=== PATIENT | female | born 1995 | race American Indian/Alaskan Native ===

== ENCOUNTER 2020-04-21 15:37 | Outpatient (REF) | payer OTHER, MEDICAID, SELFPAY ==
[2020-04-21 17:21] LABS: MANUAL DIFF FLAG NO
[2020-04-21 17:23] LABS: Basophils Percent Auto 0.4 % (0-2); Eosinophils Absolute Auto 0.1 X10*3/uL (0.0-0.4); Hematocrit 41.5 % (37-47); Hemoglobin 14.3 g/dl (12.0-16.0); Imm Gran Abs Auto 0.01 X10*3/uL (0.00-0.03); Imm Gran Pct Auto 0.1 % (0.0-0.4); Lymphocytes Absolute Auto 3.1 X10*3/uL (1.2-4.9); Lymphocytes Percent Auto 42.9 % (20-40); Mean Corpuscular HGB Conc 34.5 g/dl (31.0-35.0); Mean Corpuscular Hemoglobin 31.1 pg (27.0-33.0); Mean Corpuscular Volume 90.2 fL (80-98); Mean Platelet Volume 11.2 fL (9.4-12.3); Monocytes Absolute Auto 0.5 X10*3/uL (0.1-1.2); Monocytes Percent Auto 6.5 % (2-11); Neutrophils Absolute Auto 3.5 X10*3/uL (2.0-8.3); Neutrophils Percent Auto 49.1 % (45-73); Platelet Count 217 X10*3/uL (160-400); Red Cell Distribution Width 11.9 % (11.0-16.0); White Blood Count 7.1 X10*3/uL (4.8-10.8)
[2020-04-21 18:09] LABS: Alanine Aminotransferase 21 U/L (0-31); Albumin Level 4.7 g/dL (3.5-5.0); Alkaline Phosphatase 78 U/L (39-117); Anion Gap 14 (12-20); Aspartate Amino Transferase 15 U/L (5-31); Bilirubin Total 1.5 mg/dL (0.0-1.0); Blood Urea Nitrogen 10 mg/dL (9-16); C Reactive Protein 0.11 mg/dL (< or = 0.50); Calcium 9.4 mg/dL (8.4-10.2); Carbon Dioxide 21 mmol/L (22-29); Chloride 109 mmol/L (96-108); Estimated Glomerular Filt Rate > 60; Glucose Random 110 mg/dL (60-115); Potassium 3.7 mmol/l (3.3-5.1); Rheumatoid Factor 22.4 IU/mL (<15.0); Sodium 140 mmol/L (135-145); Total Protein 7.3 g/dL (6.5-8.0)
[2020-04-21 18:46] LABS: Erythrocyte Sedimentation Rate 6 MM/HR (0-20)
[2020-04-23 04:57] LABS: Lyme Abs Screen <0.90 index
[2020-04-24 04:07] LABS: HBc Num1 0.21 S/CO (0.00-0.79); Hepatitis B Core Antibody Nonreactive (Nonreactive); ~HepC Num1 0.09 S/CO (0.00-0.79); ~Hepatitis B Surface Antibody NONREACTIVE (Nonreactive); ~Hepatitis C Antibody Nonreactive (Nonreactive)
[2020-04-24 04:22] LABS: Hepatitis B Surface Antigen Negative (Negative)
[2020-04-24 13:12] LABS: Antibody to SS-A Antigen <1.0 NEG AI (<1.0 NEG); Antibody to SS-B Antigen <1.0 NEG AI (<1.0 NEG); Cyclic Citrullinated Peptide >250 UNITS
[2020-04-24 13:37] LABS: PTT (LAC) Screen 31 sec (< OR = 40)
[2020-04-24 13:38] LABS: Beta-2 Microglobulin, Serum 1.54 mg/L (< OR = 2.51)
[2020-04-24 23:22] LABS: Anti Nuclear Antibody Screen NEGATIVE (NEGATIVE)
[2020-04-25 00:12] LABS: Cardiolipin IgG Ab <14 GPL; Cardiolipin IgM Ab 15 MPL
[2020-04-25 19:47] LABS: Vitamin D 25-OH, D2 <4 ng/mL; Vitamin D 25-OH, D3 23 ng/mL; Vitamin D 25-OH, Total 23 ng/mL (30-100)
[2020-04-26 07:33] LABS: HBsAGNum1 0.25 S/CO (0.00-0.99)
[2020-04-26 09:40] LABS: Hepatitis A Antibody IgM 0.79 Index (0-0.79); ~Hepatitis A Antibody IgM Nonreactive (Nonreactive)
== END 2020-04-21 15:38 | disposition home or self-care (01) ==
LOC: HO.LAB 15:37
PROVIDERS: PCP Internal Medicine; Referring Provider Internal Medicine; Visit Provider Student in an Organized Health Care Education/Training Program
DX: M25.50 Pain in unspecified joint (principal)
CPT/HCPCS: 36415; 80053; 82232; 82306; 84443; 85025; 85597; 85613; 85652; 85730; 86038; 86039; 86140; 86147; 86200; 86235; 86431; 86618; 86704; 86706; 86709; 86803; 87340

== ENCOUNTER 2020-05-04 17:24 | Emergency (ER) | payer OTHER, MEDICAID, SELFPAY ==
[2020-05-04 18:00] VITALS: BP 132/66; PULSE 64; RESP 16; TEMP 36.8; O2SAT 100
[2020-05-04 18:12] VITALS: BP 122/86; PULSE 66; RESP 26; TEMP 36.6; O2SAT 99; BMI 31.1
--- NOTE | 2020-05-04 18:43 | ED_ITS ---
HPI - Ear Problem General Chief complaint: Ear Problems <Swetha Messer NP - Last Filed: 05/04/20 19:02> Stated complaint: ear pain, sore throat <Swetha Messer NP - Last Filed: 05/04/20 19:02> Time Seen by Provider: 05/04/20 18:17 <Swetha Messer NP - Last Filed: 05/04/20 19:02> Source: patient <Swetha Messer NP - Last Filed: 05/04/20 19:02> Mode of arrival: ambulatory <Swetha Messer NP - Last Filed: 05/04/20 19:02> Limitations: no limitations <Swetha Messer NP - Last Filed: 05/04/20 19:02> History of Present Illness HPI Narrative: Bilateral ear pain x several days, ear drainage since yesterday. No fevers, chills, rhinorrhea, sore throat. +nasal congestion <Swetha Messer NP - Last Filed: 05/04/20 19:02> MD Complaint: ear pain and ear discharge <Swetha Messer NP - Last Filed: 05/04/20 19:02> Location: bilateral <Swetha Messer NP - Last Filed: 05/04/20 19:02> Duration: intermittent <Swetha Messer NP - Last Filed: 05/04/20 19:02> Severity: mild <Swetha Messer NP - Last Filed: 05/04/20 19:02> Exacerbating factors: nothing <Swetha Messer NP - Last Filed: 05/04/20 19:02> Discharge from ear: yes - purulent (right ear) <Swetha Messer NP - Last Filed: 05/04/20 19:02> Treatment prior to arrival: none <Swetha Messer NP - Last Filed: 05/04/20 19:02> Related Data Home medications: Home Medications Medication Instructions Recorded Confirmed acetaminophen 650 mg/20.3 mL oral 650 mg PO Q6H PRN 04/21/20 solution albuterol sulfate 90 mcg/actuation 2 puff INHALATION Q6H PRN 04/21/20 aerosol inhaler cyclobenzaprine 10 mg tablet 10 mg PO BEDTIME 04/21/20 diclofenac potassium 50 mg tablet 50 mg PO BID 04/21/20 Previous Rx's Medication Instructions Recorded amoxicillin 500 mg PO Q12H #21 tab 05/04/20 cetirizine 10 mg PO DAILY #30 tab 05/04/20 ciprofloxacin-dexamethasone 4 drp OTIC (EARS) BID 7 Days #7.5 05/04/20 [Ciprodex] ml <Swetha Messer NP - Last Filed: 05/04/20 19:02> Allergies/adverse reactions: Allergies Allergy/AdvReac Type Severity Reaction Status Date / Time aspirin Allergy Intermediate rash Verified 04/21/20 15:58 No Known Allergies Allergy Verified 04/21/20 15:58 [No Known Allergies*] <MARINA Richard Last Filed: 05/04/20 19:02> Review of Systems Review of Systems: Yes all other systems are reviewed and are negative <MARINA Richard Last Filed: 05/04/20 19:02> Constitutional: Constitutional: Reports no additional constitutional complaints, Denies body ache(s), Denies chills, Denies fever(s), Denies headache(s) and Denies weakness <Swetha Messer NP - Last Filed: 05/04/20 19:02> Eyes: Eyes: Reports no additional eye complaints and Denies change in vision <MARINA Richard Last Filed: 05/04/20 19:02> ENT: Reports system reviewed and no additional complaints, except as documented, Denies dizziness, Reports ear discharge, Reports otalgia, Denies headache(s), Denies nasal congestion, Denies nasal discharge and Denies neck pain <Swetha Messer NP - Last Filed: 05/04/20 19:02> Cardiovascular: Cardiovascular: Reports no additional cardiovascular complaints, Denies chest pain, Denies leg edema and Denies dyspnea <MARINA Richard Last Filed: 05/04/20 19:02> Respiratory: Respiratory: Reports no additional respiratory complaints, Denies cough and Denies dyspnea <Swetha Messer NP - Last Filed: 05/04/20 19:02> Gastrointestinal: Gastrointestinal: Reports no additional gastrointestinal complaints, Denies abdominal pain, Denies diarrhea, Denies nausea and Denies vomiting <Swetha Messer NP - Last Filed: 05/04/20 19:02> Genitourinary: Genitourinary: Reports no additional female genitourinary complaints and Denies urinary incontinence <Swetha Messer NP - Last Filed: 05/04/20 19:02> Musculoskeletal: Musculoskeletal: Reports no additional musculoskeletal complaints, Denies back pain, Denies arthralgias, Denies joint swelling, Denies neck pain, Denies numbness and Denies tingling <Swetha Messer NP - Last Filed: 05/04/20 19:02> Integumentary/Breasts: Skin/Breast: Reports system reviewed and no additional complaints, except as docu and Denies rash <Swetha Messer NP - Last Filed: 05/04/20 19:02> Neurologic: Reports system reviewed and no additional complaints, except as documented, Denies Abnormal speech present, Denies dizziness, Denies headache(s), Denies numbness, Denies tingling and Denies weakness <Swetha Messer NP - Last Filed: 05/04/20 19:02> [facility] [place] Past Medical History Attestation statement: The following information was validated with the patient. <Swetha Messer NP - Last Filed: 05/04/20 19:02> Source: old records reviewed and nursing notes reviewed <Swetha Messer NP - Last Filed: 05/04/20 19:02> Medical History: Medical History Myofascial pain syndrome Numbness in both hands Polyarthritis <Swetha Messer NP - Last Filed: 05/04/20 19:02> Surgical History: Surgical History H/O breast biopsy H/O shoulder surgery Hx of section Hx of cholecystectomy <Swetha Messer NP - Last Filed: 05/04/20 19:02> Family History Family History: Family History Maternal Grandmother Diabetes Father HTN (hypertension) Mother HTN (hypertension) <Swetha Messer NP - Last Filed: 05/04/20 19:02> Social History Social History: Social History Alcohol intake: never Smoking Status: Former smoker Smoked in Last 30 Days: No Use of substances other than those prescribed or required for medical reasons: No Any prior treatment program specific to substance use: No Advance Directives: No Advance Directives Information Provided: Yes <Swetha Messer NP - Last Filed: 05/04/20 19:02> Physical Exam Vital Signs: Vital Signs: Last Vital Signs Temp 97.8 F 05/04/20 18:12 Pulse 66 05/04/20 18:12 Resp 26 H 05/04/20 18:12 BP 122/86 05/04/20 18:12 Pulse Ox 99 05/04/20 18:12 Body Mass Index 31.1 <Swetha Messer NP - Last Filed: 05/04/20 19:02> Vital Signs: Last Vital Signs Temp 97.8 F 05/04/20 18:12 Pulse 66 05/04/20 18:12 Resp 26 H 05/04/20 18:12 BP 122/86 05/04/20 18:12 Pulse Ox 99 05/04/20 18:12 Body Mass Index 31.1 <Horacio Darling MD - Last Filed: 05/10/20 12:28> Const: General: cooperative, healthy appearing, comfortable and no acute distress <Swetha Messer NP - Last Filed: 05/04/20 19:02> Orientation/consciousness: patient oriented x3 <Swetha Messer NP - Last Filed: 05/04/20 19:02> Limitations: no limitations <Swetha Messer NP - Last Filed: 05/04/20 19:02> HENMT: Head: Yes normal to inspection <Swetha Messer NP - Last Filed: 05/04/20 19:02> Ears: hearing grossly normal bilaterally, mastoids normal, no periauricular adenopathy, Abnormal EAC present (drainage right ear canal) and TM abnormal (bilateral TM) bulging, bullous, dull, wth effusion, erythematous, with fluid behind the TM and with loss of landmarks <Swetha Messer NP - Last Filed: 05/04/20 19:02> General nose exam: Normal external nose present <Swetha Messer NP - Last Filed: 05/04/20 19:02> Face and sinus: Yes normal facial exam <Swetha Messer NP - Last Filed: 05/04/20 19:02> Mouth: Normal oral and palatal mucosa present <Swetha Messer NP - Last Filed: 05/04/20 19:02> Throat: Yes posterior oropharynx normal <Swetha Messer NP - Last Filed: 05/04/20 19:02> Eyes: General: appearance normal, both eyes and all related structures <Swetha Messer NP - Last Filed: 05/04/20 19:02> Pupils: Equal, round and reactive pupils present <Swetha Messer NP - Last Filed: 05/04/20 19:02> Neck: Neck: Yes normal visual inspection <Swetha Messer NP - Last Filed: 05/04/20 19:02> Chest: Chest palpation & inspection: normal inspection of the chest <Swetha Messer NP - Last Filed: 05/04/20 19:02> Resp: Effort & Inspection: normal respiratory effort <Swetha Messer NP - Last Filed: 05/04/20 19:02> Auscultation: clear to auscultation bilaterally <Swetha Messer NP - Last Filed: 05/04/20 19:02> Cardio: Rate: regular rate <Swetha Messer NP - Last Filed: 05/04/20 19:02> Rhythm: regular rhythm <Swetha Messer NP - Last Filed: 05/04/20 19:02> Peripheral pulses: Peripheral pulses 2+ throughout <Swetha Messer NP - Last Filed: 05/04/20 19:02> GI: Inspection: Yes normal to inspection <Swetha Messer NP - Last Filed: 05/04/20 19:02> Palpation (GI): Soft to palpation and nontender <Swetha Messer NP - Last Filed: 05/04/20 19:02> Auscultation: normal bowel sounds <Swetha Messer NP - Last Filed: 05/04/20 19:02> Back/Spine/Pelvis: Thoracic/Lumbar Spine: thoracic and lumbar spine normal to inspection <Swetha Messer NP - Last Filed: 05/04/20 19:02> Skin: General skin exam: no rashes or lesions noted <Swetha Messer NP - Last Filed: 05/04/20 19:02> Neuro: General: patient oriented x3, no focal motor deficits and normal sensation to monofilament <Swetha Messer NP - Last Filed: 05/04/20 19:02> Cranial nerves: Yes Equal, round and reactive pupils present <Swetha Messer NP - Last Filed: 05/04/20 19:02> Cognition (Neuro): normal cognition <Swetha Messer NP - Last Filed: 05/04/20 19:02> Speech: No Abnormal speech present <Swetha Messer NP - Last Filed: 05/04/20 19:02> Gait exam (Neuro): Normal gait present <Swetha Messer NP - Last Filed: 05/04/20 19:02> Motor exam (neuro): 5/5 motor strength present throughout <Swetha Messer NP - Last Filed: 05/04/20 19:02> Extrem: General: Yes normal to inspection <Swetha Messer NP - Last Filed: 05/04/20 19:02> Course Course Course Narrative: Bilateral AOM. Otitis Externa right ear. No mastoid tenderness or abno rmality. Will treat with antibiotics. Reviewed worrisome signs and symptoms and when to return to the emergency department. Comfortable discharge home. <Swetha Messer NP - Last Filed: 05/04/20 19:02> I have reviewed the chart <Horacio Darling MD - Last Filed: 05/10/20 12:28> Discharge Plan Discharge Clinical Impression: Otitis media, Otitis externa <Swetha Messer NP - Last Filed: 05/04/20 19:02> Patient Disposition: Home, Self-Care <Swetha Messer NP - Last Filed: 05/04/20 19:02> Instructions: Ear Infection (ED) <Swetha Messer NP - Last Filed: 05/04/20 19:02> Additional Instructions: Only do the drops in the right ear <Swetha Messer NP - Last Filed: 05/04/20 19:02> Prescriptions: New amoxicillin 500 mg tablet 500 mg PO Q12H Qty: 21 RF: 0 cetirizine 10 mg tablet 10 mg PO DAILY Qty: 30 RF: 0 ciprofloxacin-dexamethasone [Ciprodex] 0.3-0.1 % drops,suspension 4 drp otic (ears) BID 7 Days Qty: 7.5 RF: 0 No Action diclofenac potassium 50 mg tablet 50 mg PO BID RF: 0 acetaminophen 650 mg/20.3 mL solution 650 mg PO Q6H PRNRF: 0 cyclobenzaprine 10 mg tablet 10 mg PO BEDTIME RF: 0 albuterol sulfate 90 mcg/actuation HFA aerosol inhaler 2 puff inhalation Q6H PRNRF: 0 <Swetha Messer NP - Last Filed: 05/04/20 19:02> Referrals: Marzena Strong MD [Primary Care Provider] - 2 days <Swetha Messer NP - Last Filed: 05/04/20 19:02> Interventions: ED Discharge Assessment Last Done: 05/04/20 18:49 <Swetha Messer NP - Last Filed: 05/04/20 19:02> Discharge Date/Time: 05/04/20 18:53 <Swetha Messer NP - Last Filed: 05/04/20 19:02> Print Language: Hebrew <Swetha Messer NP - Last Filed: 05/04/20 19:02>
== END 2020-05-04 18:53 | disposition home or self-care (01) ==
PROVIDERS: Emergency Provider Emergency Medicine; PCP Internal Medicine
DX: H66.93 Otitis media, unspecified, bilateral (principal); H60.501 Unspecified acute noninfective otitis externa, right ear; H92.03 Otalgia, bilateral; Z79.899 Other long term (current) drug therapy; Z87.891 Personal history of nicotine dependence
CPT/HCPCS: 99284

== ENCOUNTER → 2020-05-16 13:34 | Outpatient (BNVA) | payer OTHER, MEDICAID, SELFPAY | PROVIDERS: PCP Internal Medicine; Visit Provider Student in an Organized Health Care Education/Training Program ==

== ENCOUNTER 2020-05-19 11:27 | Outpatient (REF) | payer OTHER, MEDICAID, SELFPAY ==
--- NOTE | ~2020-05-19 | XR_ITS ---
EXAMINATION: BILATERAL HAND AND WRIST X-RAY CLINICAL INFORMATION: Rheumatoid arthritis COMPARISON: None TECHNIQUE: 3 views of the hand and wrist FINDINGS: Right: Bone alignment is normal. No fracture or dislocation is seen. There may be be periarticular osteopenia at the MCP and IP joints. Joint spaces are otherwise normal. No erosions are seen. Soft tissues are normal. Left: Bone alignment is normal. No fracture or dislocation is seen. There may be be periarticular osteopenia at the MCP and IP joints. Joint spaces are otherwise normal. No erosions are seen. Soft tissues are normal. XR/XR hand wrist RT IMPRESSION: Question periarticular osteopenia otherwise unremarkable exam
--- NOTE | ~2020-05-19 | XR_ITS ---
EXAMINATION: BILATERAL HAND AND WRIST X-RAY CLINICAL INFORMATION: Rheumatoid arthritis COMPARISON: None TECHNIQUE: 3 views of the hand and wrist FINDINGS: Right: Bone alignment is normal. No fracture or dislocation is seen. There may be be periarticular osteopenia at the MCP and IP joints. Joint spaces are otherwise normal. No erosions are seen. Soft tissues are normal. Left: Bone alignment is normal. No fracture or dislocation is seen. There may be be periarticular osteopenia at the MCP and IP joints. Joint spaces are otherwise normal. No erosions are seen. Soft tissues are normal. XR/XR hand wrist LT IMPRESSION: Question periarticular osteopenia otherwise unremarkable exam
[2020-05-21 19:11] LABS: TS Negative Control Passed; TS Panel A 0; TS Panel B 0; TS Positive Control Passed; TSpotTB Negative (SeeBelow)
[2020-05-22 04:40] LABS: HBS Num1 1.04 mIU/mL (0-7.99); HBc Num1 0.17 S/CO (0.00-0.79); HBsAGNum1 0.14 S/CO (0.00-0.99); Hepatitis B Core Antibody Nonreactive (Nonreactive); Hepatitis B Surface Antigen Negative (Negative); ~Hepatitis B Surface Antibody NONREACTIVE (Nonreactive)
[2020-05-22 04:41] LABS: ~HepC Num1 0.08 S/CO (0.00-0.79); ~Hepatitis C Antibody Nonreactive (Nonreactive)
[2020-05-24 08:45] LABS: Hepatitis A Antibody IgM 0.84 Index (0-0.79)
[2020-05-24 08:55] LABS: ~Hepatitis A Antibody IgM GRAYZONE (Nonreactive)
== END 2020-05-19 11:28 | disposition home or self-care (01) ==
LOC: HO.LAB 11:27
PROVIDERS: PCP Internal Medicine; Visit Provider Student in an Organized Health Care Education/Training Program
DX: M05.9 Rheumatoid arthritis with rheumatoid factor, unspecified (principal)
CPT/HCPCS: 36415; 73110; 73130; 86481; 86704; 86706; 86709; 86803; 87340

== ENCOUNTER 2020-05-26 11:18 | Outpatient (REF) | payer OTHER, MEDICAID, SELFPAY ==
[2020-05-26 12:25] LABS: Hepatitis A Antibody IgM 0.92 Index (0-0.79)
[2020-05-26 13:08] LABS: ~Hepatitis A Antibody IgM GRAYZONE (Nonreactive)
== END 2020-05-26 11:19 | disposition home or self-care (01) ==
LOC: HO.LAB 11:18
PROVIDERS: Visit Provider Student in an Organized Health Care Education/Training Program
DX: M05.9 Rheumatoid arthritis with rheumatoid factor, unspecified (principal)
CPT/HCPCS: 36415; 86709

== ENCOUNTER 2020-06-02 11:35 | Outpatient (REF) | payer OTHER, MEDICAID, SELFPAY ==
[2020-06-02 13:55] LABS: Hepatitis A Antibody IgM 0.91 Index (0-0.79)
[2020-06-02 14:53] LABS: ~Hepatitis A Antibody IgM GRAYZONE (Nonreactive)
== END 2020-06-02 11:36 | disposition home or self-care (01) ==
LOC: HO.LAB 11:35
PROVIDERS: PCP Internal Medicine; Visit Provider Student in an Organized Health Care Education/Training Program
DX: R89.9 Unspecified abnormal finding in specimens from other organs, systems and tissues (principal)
CPT/HCPCS: 36415; 86709

== ENCOUNTER 2020-06-09 13:31 | Outpatient (REF) | payer OTHER, MEDICAID, SELFPAY ==
[2020-06-14 08:32] LABS: ~Hepatitis A Antibody IgM Nonreactive (Nonreactive)
== END 2020-06-09 13:32 | disposition home or self-care (01) ==
LOC: HO.LAB 13:31
PROVIDERS: Visit Provider Student in an Organized Health Care Education/Training Program
DX: R89.9 Unspecified abnormal finding in specimens from other organs, systems and tissues (principal)
CPT/HCPCS: 36415; 86709

== ENCOUNTER → 2020-06-13 10:38 | Outpatient (BNVA) | payer OTHER, MEDICAID, SELFPAY | PROVIDERS: PCP Internal Medicine; Visit Provider Student in an Organized Health Care Education/Training Program | DX: M05.9 Rheumatoid arthritis with rheumatoid factor, unspecified (principal); E55.9 Vitamin D deficiency, unspecified | CPT/HCPCS: 36415; 80053 ==

== ENCOUNTER 2020-06-15 13:54 | Emergency (ER) | payer OTHER, MEDICAID, SELFPAY ==
--- NOTE | ~2020-06-15 | CT_ITS ---
EXAMINATION: CT ABDOMEN AND PELVIS WITH CONTRAST CLINICAL INFORMATION: Right lower quadrant pain COMPARISON: None TECHNIQUE: Multidetector volumetric images were obtained from the superior aspect of the liver through the pubic symphysis following administration 85 mL of Omnipaque 350 intravenous contrast. Sagittal and coronal reformatted images were obtained on the technologist's workstation. Oral contrast: No This CT examination was performed using dose optimization techniques as appropriate, variously including the following: *Automated exposure control *Adjustment of mA and/or kV according to patient size (this includes techniques or standardized protocols for targeted exams where dose is matched to indication/reason for exam; i.e. extremities or head) *Use of iterative reconstruction technique DLP: 682 mGy-cm FINDINGS: LUNG BASES: The visualized lung bases are unremarkable. LIVER, GALLBLADDER, AND BILIARY TREE: Liver is within limits of normal size and contour and homogeneous and normal in attenuation. There is been prior cholecystectomy. No focal hepatic parenchymal lesion or intrahepatic ductal dilatation. The common duct is unremarkable. PANCREAS: Unremarkable. SPLEEN: Unremarkable. ADRENAL GLANDS: Unremarkable. KIDNEYS AND URETERS: The kidneys are normal in size and contour. There is no hydronephrosis, hydroureter, or focal urinary tract calculi, or perinephric stranding. There is bilateral hyperenhancement of the renal medulla versus medullary calcifications, suggesting medullary sponge kidney. BLADDER: Unremarkable. GASTROINTESTINAL TRACT: The appendix is normal. There is no bowel obstruction or inflammatory changes in the bowel or mesentery. There is small sliding hiatal hernia. No ascites or fluid collection. ABDOMINAL WALL: Borderline fat-containing umbilical hernia under 3 cm. LYMPH NODES: No lymphadenopathy. VASCULAR: Unremarkable. PELVIC VISCERA: Dominant follicle right ovary under 2 cm. No pelvic mass or ascites. OSSEOUS STRUCTURES: Unremarkable. CT/CT abdomen pelvis w con IMPRESSION: 1. No inflammatory changes in abdomen or pelvis. Normal appendix. 2. Prior cholecystectomy. No ductal dilatation. 3. No hydronephrosis or perinephric stranding. Probable bilateral medullary sponge kidney.
--- NOTE | ~2020-06-15 | US_ITS ---
EXAMINATION: PELVIC ULTRASOUND CLINICAL INFORMATION: Right lower quadrant pain COMPARISON: CT abdomen pelvis same day TECHNIQUE: Both transabdominal and endovaginal scanning was performed. Color-flow Doppler imaging was utilized. FINDINGS: An anteverted uterus is present measuring 6.3 x 3.2 x 3.7 cm for a volume of 39 mL. A tiny amount of fluid is present in the endometrial cavity. No uterine masses are seen. The right ovary measures 2.8 x 2.7 x 1.5 cm for a volume of 5.9 mL Left ovary measures 2.5 x 1.6 x 1.4 cm for a volume of 2.9 No free fluid is present in the cul-de-sac. Doppler imaging of both ovaries shows normal arterial and venous flow. US/US transvaginal IMPRESSION: No significant abnormality is detected.
--- NOTE | ~2020-06-15 | US_ITS ---
EXAMINATION: PELVIC ULTRASOUND CLINICAL INFORMATION: Right lower quadrant pain COMPARISON: CT abdomen pelvis same day TECHNIQUE: Both transabdominal and endovaginal scanning was performed. Color-flow Doppler imaging was utilized. FINDINGS: An anteverted uterus is present measuring 6.3 x 3.2 x 3.7 cm for a volume of 39 mL. A tiny amount of fluid is present in the endometrial cavity. No uterine masses are seen. The right ovary measures 2.8 x 2.7 x 1.5 cm for a volume of 5.9 mL Left ovary measures 2.5 x 1.6 x 1.4 cm for a volume of 2.9 No free fluid is present in the cul-de-sac. Doppler imaging of both ovaries shows normal arterial and venous flow. US/US pelvic ovarian doppler IMPRESSION: No significant abnormality is detected.
--- NOTE | ~2020-06-15 | US_ITS ---
EXAMINATION: PELVIC ULTRASOUND CLINICAL INFORMATION: Right lower quadrant pain COMPARISON: CT abdomen pelvis same day TECHNIQUE: Both transabdominal and endovaginal scanning was performed. Color-flow Doppler imaging was utilized. FINDINGS: An anteverted uterus is present measuring 6.3 x 3.2 x 3.7 cm for a volume of 39 mL. A tiny amount of fluid is present in the endometrial cavity. No uterine masses are seen. The right ovary measures 2.8 x 2.7 x 1.5 cm for a volume of 5.9 mL Left ovary measures 2.5 x 1.6 x 1.4 cm for a volume of 2.9 No free fluid is present in the cul-de-sac. Doppler imaging of both ovaries shows normal arterial and venous flow. US/US pelvic complete IMPRESSION: No significant abnormality is detected.
[2020-06-15 14:02] VITALS: BP 131/80; PULSE 102; RESP 16; TEMP 37.1; O2SAT 97; BMI 72.8
--- NOTE | 2020-06-15 14:53 | ED.ABDPAIN ---
HPI - Abdominal Pain General Chief Complaint: Abdominal Pain Stated Complaint: abd pain Time Seen by Provider: 06/15/20 14:41 Source: patient Mode of arrival: ambulatory Limitations: language barrier (refrigeration mechanic present for all interactions) History of Present Illness HPI narrative: This is a 25-year-old female with past medical history that is significant for rheumatoid arthritis, fibromyalgia who is A0 and has had 3 burst by Caesarean section last 3 years ago and cholecystectomy she presents today with complaint of 2 days of ongoing sharp and stabbing like right lower quadrant abdominal pain with associated nausea but no vomiting or diarrhea. She denies any symptoms. Specifically there is no vaginal bleeding or discharge. There is no particular exacerbating or alleviating factors. No fever. She did eat lunch 2 hours prior to arrival. MD elicited complaint: abdominal pain Onset (ago): day(s) (2) Pain Consistency: intermittent (Getting worse) Location: RLQ Severity: moderate Quality: stabbing Radiation: none Migration to: periumbilical Exacerbating factors: nothing Relieving factors: nothing Associated symptoms: nausea Related Data Hx Last Menstrual Period: Irregular she is on Depo control Patient : No Home Medications Medication Instructions Recorded Confirmed acetaminophen 650 mg/20.3 mL oral 650 mg PO Q6H PRN 04/21/20 06/13/20 solution albuterol sulfate 90 mcg/actuation 2 puff INHALATION Q6H PRN 04/21/20 06/13/20 aerosol inhaler cyclobenzaprine 10 mg tablet 10 mg PO BEDTIME 04/21/20 06/13/20 diclofenac potassium 50 mg tablet 50 mg PO BID 04/21/20 06/13/20 Previous Rx's Medication Instructions Recorded amoxicillin 500 mg PO Q12H #21 tab 05/04/20 cetirizine 10 mg PO DAILY #30 tab 05/04/20 ciprofloxacin-dexamethasone 4 drp OTIC (EARS) BID 7 Days #7.5 05/04/20 [Ciprodex] ml cholecalciferol (vitamin D3) 25 25 mcg PO DAILY #30 cap 05/16/20 mcg (1,000 unit) capsule prednisone 5 mg tablet See Rx Instructions PO DAILY #50 06/13/20 tab certolizumab pegol 200 mg SUBCUT Q2W #1 ea 06/14/20 certolizumab pegol 400 mg SUBCUT Q2W #1 ea 06/14/20 Allergies Allergy/AdvReac Type Severity Reaction Status Date / Time aspirin Allergy Intermediate rash Verified 06/13/20 10:56 Review of Systems Review of Systems Constitutional: No Weight loss, No Fever, No Chills, No Night Sweats, No Fatigue, No Malaise ENT/Mouth: No Hearing loss, No Ear Pain, No Nasal Congestion, No Sinus Pain, No Hoarseness, No sore throat, No Rhinorrhea, No Swallowing Difficulty Eyes: No Eye Pain, No Swelling, No Redness, No Foreign Body, No Discharge, No Vision Changes Cardiovascular: No Chest Pain, No SOB, No Dyspnea on Exertion, No Orthopnea, No Edema, No Palpitations Respiratory: No Cough, No Sputum, No Wheezing, No Smoke Exposure, No Dyspnea Gastrointestinal: + Nausea, No Vomiting, No Diarrhea, No Constipation, + abdominal Pain as noted per HPI, No Hematochezia, No Melena Genitourinary: No Dysuria, No Urinary Frequency, No Hematuria, No Urinary Incontinence, No Urgency, No Flank Pain, No Urinary Flow Changes, No Hesitancy Musculoskeletal: No joint pain, No Myalgias, No Joint Swelling Skin: No Skin Lesions, No rash Neuro: No Weakness, No Numbness, No Paresthesias, No Loss of Consciousness, No Dizziness, No Headache Psych: No Social Issues Heme/Lymph: No Bruising, No Bleeding,No Lymphadenopathy Endocrine: No Polyuria, No Polydipsia, No Temperature Intolerance Yes all other systems are reviewed and are negative Physical Exam Vital Signs: Vital Signs: Last Vital Signs Temp 98.0 F 06/15/20 20:00 Pulse 73 06/15/20 20:00 Resp 18 06/15/20 20:00 BP 107/72 06/15/20 20:00 Pulse Ox 98 06/15/20 16:46 Body Mass Index 72.8 Reviewed Const: Other: Sitting up erected in her bed on cell phone. General: cooperative and healthy appearing; No acute distress or intoxicated appearing Nutritional Appearance: overweight Orientation/consciousness: patient oriented x3 HENMT: Head: Yes normal to inspection Ears: hearing grossly normal bilaterally General nose exam: Normal external nose present Face and sinus: Yes normal facial exam Eyes: General: appearance normal, both eyes and all related structures Visual Morales: normal visual morales by confrontation Neck: Neck: Yes normal visual inspection, No positive Brudzinski's sign, No positive Kernig's sign and No tender Thyroid: Thyroid normal Chest: Chest palpation & inspection: normal inspection of the chest Resp: Effort & Inspection: normal respiratory effort Auscultation: clear to auscultation bilaterally Cardio: Jugular venous distension: no JVD Rhythm: regular rhythm Heart sounds: S1 normal heart sound present and S2 normal heart sound present GI: Other: Able to ambulate without pain however when she does heel drop test she will get pain in the right lower quadrant. Inspection: Yes normal to inspection Palpation (GI): Tenderness to palpation present (GI) in the RLQ and with rebound tenderness Percussion: Yes normal to percussion Auscultation: normal bowel sounds : General: Yes no CVA tenderness Back/Spine/Pelvis: Back: no CVA tenderness Skin: General skin exam: no rashes or lesions noted Neuro: General: patient oriented x3 Extrem: General: Yes normal to inspection MDM - Abdominal Pain MDM Narrative Medical decision making narrative: In review 25-year-old female with above history presenting with acute right lower quadrant pain with associated nausea with exam findings of nonspecific right lower quadrant tenderness subsequently having labs and CT of the abdomen pelvis with IV contrast rule out appendicitis this was negative for appendicitis did show question dominant follicle right ovary under 2 cm. Subsequently pelvic and ovarian ultrasound for rule out torsion that this was unremarkable. And labs were overall stable. Negative for . Patient remains comfortable. Repeat abdominal exam without evidence of peritonitis. Tolerating p.o. intake well. Will discharge home with precaution, return, follow-up instructions. Will follow up with her primary care doctor closely. She feels comfortable plan. Stable for discharge. Differential Diagnosis Differential diagnosis: Likely abdominal pain, acute appendicitis, gastroenteritis and ovarian cyst; Unlikely aortic dissection, bowel perforation, calculus of kidney, constipation, diverticulitis, endometriosis, gastritis, mesenteric ischemia, pancreatitis, peptic ulcer disease, renal colic and small bowel obstruction Medical Records Attestation: I reviewed the patient's medical records. Lab Data Attestation: I reviewed the patient's lab results. Result diagrams: 06/15/20 15:16 06/15/20 15:16 Labs: Lab Results 06/15/20 06/15/20 06/15/20 Range/Units 15:16 15:16 15:16 WBC 10.3 (4.8-10.8) X10*3/uL RBC 4.49 (4.20-5.50) X10*6/uL Hgb 13.8 (12.0-16.0) g/dl Hct 40.6 (37-47) % MCV 90.4 (80-98) fL MCH 30.7 (27.0-33.0) pg MCHC 34.0 (31.0-35.0) g/dl RDW 12.1 (11.0-16.0) % Plt Count 281 D (160-400) X10*3/uL MPV 9.9 (9.4-12.3) fL Immature Gran % (Auto) 0.6 H (0.0-0.4) % Neut % (Auto) 81.1 H (45-73) % Lymph % (Auto) 14.4 L (20-40) % [place] % (Auto) 3.5 (2-11) % Eos % (Auto) 0.1 (0-4) % Baso % (Auto) 0.3 (0-2) % Lymph # (Auto) 1.5 (1.2-4.9) X10*3/uL [place] # (Auto) 0.4 (0.1-1.2) X10*3/uL Eos # (Auto) 0.0 (0.0-0.4) X10*3/uL Baso # (Auto) 0.0 (0.0-0.2) X10*3/uL Abs Immat Gran (auto) 0.06 H (0.00-0.03) X10*3/uL Absolute Neuts (auto) 8.4 H (2.0-8.3) X10*3/uL Absolute Nucleated RBC 0.000 (0.0-0.012) X10*3/uL Nucleated RBC % (auto) 0.0 (0.0-0.2) /100WBC Sodium 140 (135-145) mmol/L Potassium 4.5 (3.3-5.1) mmol/L Chloride 106 (96-108) mmol/L Carbon Dioxide 25 (22-29) mmol/L Anion Gap 14 (12-20) BUN 17 H D (9-16) mg/dL Creatinine 0.78 (0.5-1.4) mg/dL Estim Creat Clear Calc 168.7 Estimated GFR > 60 Random Glucose 122 H D (60-115) mg/dL Calcium 9.5 (8.4-10.2) mg/dL Total Bilirubin 1.0 (0.0-1.0) mg/dL AST 20 (5-31) U/L ALT 21 (0-31) U/L Alkaline Phosphatase 92 (39-117) U/L Total Protein 7.6 (6.5-8.0) g/dL Albumin 4.5 (3.5-5.0) g/dL Urine Color YELLOW Urine Appearance CLEAR Urine pH 5.0 (5.0-8.0) Ur Specific Newman >= 1.030 H (1.005-1.025) Urine Protein NEG (NEG-TRACE) MG/DL Urine Glucose (UA) NEG (NEG) MG/DL Urine Ketones NEG (NEG) MG/DL Urine Blood NEG (NEG) Urine Nitrite NEG (NEG) Ur Leukocyte Esterase NEG (NEG) Urine RBC 0 (0) /HPF Urine WBC 0 (0-4) /HPF Ur Squamous Epith Cells 1+ /LPF Calcium Oxalate Crystal TRACE /LPF Urine Bacteria NONE /LPF Urine Test (NEGATIVE) Coronavirus (PCR) (Negative) Influenza Type A (PCR) (Negative) Influenza Type B (PCR) (Negative) RSV RNA Qual (PCR) (Negative) 06/15/20 06/15/20 Range/Units 15:16 15:41 WBC (4.8-10.8) X10*3/uL RBC (4.20-5.50) X10*6/uL Hgb (12.0-16.0) g/dl Hct (37-47) % MCV (80-98) fL MCH (27.0-33.0) pg MCHC (31.0-35.0) g/dl RDW (11.0-16.0) % Plt Count (160-400) X10*3/uL MPV (9.4-12.3) fL Immature Gran % (Auto) (0.0-0.4) % Neut % (Auto) (45-73) % Lymph % (Auto) (20-40) % [place] % (Auto) (2-11) % Eos % (Auto) (0-4) % Baso % (Auto) (0-2) % Lymph # (Auto) (1.2-4.9) X10*3/uL [place] # (Auto) (0.1-1.2) X10*3/uL Eos # (Auto) (0.0-0.4) X10*3/uL Baso # (Auto) (0.0-0.2) X10*3/uL Abs Immat Gran (auto) (0.00-0.03) X10*3/uL Absolute Neuts (auto) (2.0-8.3) X10*3/uL Absolute Nucleated RBC (0.0-0.012) X10*3/uL Nucleated RBC % (auto) (0.0-0.2) /100WBC Sodium (135-145) mmol/L Potassium (3.3-5.1) mmol/L Chloride (96-108) mmol/L Carbon Dioxide (22-29) mmol/L Anion Gap (12-20) BUN (9-16) mg/dL Creatinine (0.5-1.4) mg/dL Estim Creat Clear Calc Estimated GFR Random Glucose (60-115) mg/dL Calcium (8.4-10.2) mg/dL Total Bilirubin (0.0-1.0) mg/dL AST (5-31) U/L ALT (0-31) U/L Alkaline Phosphatase (39-117) U/L Total Protein (6.5-8.0) g/dL Albumin (3.5-5.0) g/dL Urine Color Urine Appearance Urine pH (5.0-8.0) Ur Specific Newman (1.005-1.025) Urine Protein (NEG-TRACE) MG/DL Urine Glucose (UA) (NEG) MG/DL Urine Ketones (NEG) MG/DL Urine Blood (NEG) Urine Nitrite (NEG) Ur Leukocyte Esterase (NEG) Urine RBC (0) /HPF Urine WBC (0-4) /HPF Ur Squamous Epith Cells /LPF Calcium Oxalate Crystal /LPF Urine Bacteria /LPF Urine Test NEGATIVE (NEGATIVE) Coronavirus (PCR) NEGATIVE (Negative) Influenza Type A (PCR) NEGATIVE (Negative) Influenza Type B (PCR) NEGATIVE (Negative) RSV RNA Qual (PCR) NEGATIVE (Negative) Discharge Plan Discharge Clinical Impression: Abdominal pain Qualifiers: Abdominal location: right lower quadrant Qualified Code(s): R10.31 - Right lower quadrant pain Patient Disposition: Home, Self-Care Instructions: Abdominal Pain (ED) Prescriptions: No Action Cimzia 400 mg/2 mL (200 mg/mL x 2) syringe kit 400 mg subcut Q2W Qty: 1 RF: 0 Cimzia 400 mg/2 mL (200 mg/mL x 2) syringe kit 200 mg subcut Q2W Qty: 1 RF: 3 amoxicillin 500 mg tablet 500 mg PO Q12H Qty: 21 RF: 0 cetirizine 10 mg tablet 10 mg PO DAILY Qty: 30 RF: 0 ciprofloxacin-dexamethasone [Ciprodex] 0.3-0.1 % drops,suspension 4 drp otic (ears) BID 7 Days Qty: 7.5 RF: 0 diclofenac potassium 50 mg tablet 50 mg PO BID RF: 0 acetaminophen 650 mg/20.3 mL solution 650 mg PO Q6H PRNRF: 0 cyclobenzaprine 10 mg tablet 10 mg PO BEDTIME RF: 0 albuterol sulfate 90 mcg/actuation HFA aerosol inhaler 2 puff inhalation Q6H PRNRF: 0 cholecalciferol (vitamin D3) 25 mcg (1,000 unit) capsule 25 mcg PO DAILY Qty: 30 RF: 5 prednisone 5 mg tablet See Rx Instructions PO DAILY Qty: 50 RF: 0 Referrals: Marzena Strong MD [Primary Care Provider] - 1 week PMF Past Medical History Medical History Myofascial pain syndrome Numbness in both hands Polyarthritis Surgical History H/O breast biopsy H/O shoulder surgery Hx of section Hx of cholecystectomy Hx Last Menstrual Period: Irregular she is on Depo control Family History Family History Maternal Grandmother Diabetes Father HTN (hypertension) Mother HTN (hypertension) Social History Social History Alcohol intake: never Smoking Status: Former smoker Advance Directives: No Advance Directives Information Provided: No
[2020-06-15 15:22] LABS: MANUAL DIFF FLAG NO
[2020-06-15 15:24] LABS: Basophils Percent Auto 0.3 % (0-2); Eosinophils Percent Auto 0.1 % (0-4); Hematocrit 40.6 % (37-47); Hemoglobin 13.8 g/dl (12.0-16.0); Imm Gran Abs Auto 0.06 X10*3/uL (0.00-0.03); Imm Gran Pct Auto 0.6 % (0.0-0.4); Lymphocytes Absolute Auto 1.5 X10*3/uL (1.2-4.9); Lymphocytes Percent Auto 14.4 % (20-40); Mean Corpuscular Hemoglobin 30.7 pg (27.0-33.0); Mean Corpuscular Volume 90.4 fL (80-98); Mean Platelet Volume 9.9 fL (9.4-12.3); Monocytes Absolute Auto 0.4 X10*3/uL (0.1-1.2); Monocytes Percent Auto 3.5 % (2-11); Neutrophils Absolute Auto 8.4 X10*3/uL (2.0-8.3); Neutrophils Percent Auto 81.1 % (45-73); Platelet Count 281 X10*3/uL (160-400); Red Blood Count 4.49 X10*6/uL (4.20-5.50); Red Cell Distribution Width 12.1 % (11.0-16.0); White Blood Count 10.3 X10*3/uL (4.8-10.8)
[2020-06-15 15:28] LABS: Glucose Urine UA NEG (NEG); Leukocyte Esterase Urine NEG (NEG); Nitrite Urine NEG (NEG); Specific Gravity - Urine >= 1.030 (1.005-1.025); Urine Blood NEG (NEG); Urine Ketones NEG (NEG); Urine Protein NEG (NEG-TRACE)
[2020-06-15 15:31] LABS: UPreg QC Valid YES; Urine Pregnancy NEGATIVE (NEGATIVE)
[2020-06-15 15:32] LABS: Appearance Urine CLEAR; Color Urine YELLOW
[2020-06-15 15:36] LABS: Calcium Oxalate Crystals Urine TRACE /LPF; RBC Urine 0 /HPF (0); Squamous Epithelial Cell Urine 1+ /LPF; WBC Urine 0 /HPF (0-4)
[2020-06-15 15:52] LABS: Alanine Aminotransferase 21 U/L (0-31); Albumin Level 4.5 g/dL (3.5-5.0); Alkaline Phosphatase 92 U/L (39-117); Anion Gap 14 (12-20); Aspartate Amino Transferase 20 U/L (5-31); Blood Urea Nitrogen 17 mg/dL (9-16); Calcium 9.5 mg/dL (8.4-10.2); Carbon Dioxide 25 mmol/L (22-29); Chloride 106 mmol/L (96-108); Creatinine Clr Calc Pharmacy 168.7; Estimated Glomerular Filt Rate > 60; Glucose Random 122 mg/dL (60-115); Potassium 4.5 mmol/L (3.3-5.1); Sodium 140 mmol/L (135-145); Total Protein 7.6 g/dL (6.5-8.0)
[2020-06-15 16:33] LABS: Influenza A PCR NEGATIVE (Negative); Influenza B PCR NEGATIVE (Negative); Resp Syncy Virus RNA Qual PCR NEGATIVE (Negative); SARS COV2 PCR INHOUSE NEGATIVE (Negative)
[2020-06-15 16:46] VITALS: BP 118/73; PULSE 83; RESP 18; TEMP 36.8; O2SAT 98
[2020-06-15] MEDS: iohexoL 350 MG/ML 100 ML INFUS..BTL IV (16:46)
[2020-06-15 19:17] VITALS: BP 134/79; PULSE 74; RESP 18; TEMP 36.8
[2020-06-15 20:00] VITALS: BP 107/72; PULSE 73; RESP 18; TEMP 36.7
== END 2020-06-15 20:31 | disposition home or self-care (01) ==
PROVIDERS: Nurse Practitioner Primary Care; Emergency Provider Emergency Medicine; PCP Internal Medicine
DX: R10.31 Right lower quadrant pain (principal); R11.0 Nausea; Z79.899 Other long term (current) drug therapy; Z87.891 Personal history of nicotine dependence; Z20.822 Contact with and (suspected) exposure to COVID-19
CPT/HCPCS: 0241U; 36415; 74177; 76830; 76856; 80053; 81001; 81025; 85025; 93975; 96360; 99283; 99284; Q9967

== ENCOUNTER 2020-06-20 15:01 | Outpatient (REF) | payer OTHER, SELFPAY | END 2020-06-20 15:02 | disposition home or self-care (01) | LOC: HO.LAB 15:01 | PROVIDERS: Visit Provider Internal Medicine | DX: Z20.822 Contact with and (suspected) exposure to COVID-19 (principal) | CPT/HCPCS: 36415; C9803; U0003; U0005 ==

== ENCOUNTER → 2020-07-07 12:53 | Outpatient (BNVA) | payer OTHER, SELFPAY | PROVIDERS: PCP Internal Medicine; Visit Provider Student in an Organized Health Care Education/Training Program ==

== ENCOUNTER 2020-07-09 18:41 | Emergency (ER) | payer OTHER, MEDICAID, SELFPAY ==
[2020-07-09 18:54] VITALS: BP 136/62; PULSE 83; RESP 18; TEMP 37; O2SAT 99; BMI 62.4
--- NOTE | 2020-07-09 21:36 | ED_ITS ---
HPI - Skin/Abscess/Foreign Bdy General Chief complaint: Skin/Abscess/Foreign Body Stated complaint: Red inflamed skin on injection site Time Seen by Provider: 07/09/20 21:36 Source: patient and aerial photograph interpreter Mode of arrival: ambulatory History of Present Illness HPI narrative: This is a 25-year-old female with history of rheumatoid arthritis and recently started injections for this condition. First injections were administered on Friday and involved placing an injection in each of her bilateral thighs and she states that since that time she has had continued redness with some mild erythema and swelling at the site. She denies any fac ial/lip/tongue swelling as well as denying any wheezing or difficulty breathing. In addition, she denies any fevers, chills. Related Data Home Medications Medication Instructions Recorded Confirmed acetaminophen 650 mg/20.3 mL oral 650 mg PO Q6H PRN 04/21/20 06/13/20 solution albuterol sulfate 90 mcg/actuation 2 puff INHALATION Q6H PRN 04/21/20 06/13/20 aerosol inhaler cyclobenzaprine 10 mg tablet 10 mg PO BEDTIME 04/21/20 06/13/20 diclofenac potassium 50 mg tablet 50 mg PO BID 04/21/20 06/13/20 Previous Rx's Medication Instructions Recorded amoxicillin 500 mg PO Q12H #21 tab 05/04/20 cetirizine 10 mg PO DAILY #30 tab 05/04/20 ciprofloxacin-dexamethasone 4 drp OTIC (EARS) BID 7 Days #7.5 05/04/20 [Ciprodex] ml cholecalciferol (vitamin D3) 25 25 mcg PO DAILY #30 cap 05/16/20 mcg (1,000 unit) capsule prednisone 5 mg tablet See Rx Instructions PO DAILY #50 06/13/20 tab certolizumab pegol 200 mg SUBCUT Q2W #1 ea 06/14/20 certolizumab pegol 400 mg SUBCUT Q2W #1 ea 06/14/20 Allergies Allergy/AdvReac Type Severity Reaction Status Date / Time aspirin Allergy Intermediate rash Verified 06/13/20 10:56 Review of Systems Review of Systems: Pertinent positives and negatives as stated in HPI 10 point review of systems is otherwise negative. PMFSH Past Medical History Source: nursing notes reviewed Medical History Myofascial pain syndrome Numbness in both hands Polyarthritis Surgical History H/O breast biopsy H/O shoulder surgery Hx of section Hx of cholecystectomy Family History Family History Maternal Grandmother Diabetes Father HTN (hypertension) Mother HTN (hypertension) Social History Social History Alcohol intake: never Smoking Status: Current some day smoker Use of substances other than those prescribed or required for medical reasons: No Advance Directives: No Advance Directives Information Provided: Yes Physical Exam Vital Signs: Vital Signs: Last Vital Signs Temp 98.6 F 07/09/20 18:54 Pulse 83 07/09/20 18:54 Resp 18 07/09/20 18:54 BP 136/62 07/09/20 18:54 Pulse Ox 99 07/09/20 18:54 Body Mass Index 62.4 VITAL SIGNS: Reviewed. GENERAL: Well developed, well nourished, in no acute distress. HEAD: Normocephalic/atraumatic NOSE: Nares patent bilateral OROPHARYNX: no oral lesions noted, posterior pharynx clear, no evidence of facial/tongue/lip swelling NECK: Supple, no adenopathy LUNGS: Normal breath sounds. CARDIOVASCULAR: Regular rate and rhythm without noted murmurs ABDOMEN: Soft, non-tender, non-distended with bowel sounds. EXTREMITIES: Bilateral midthigh erythema approximately 4.5 cm in diameter at each injection site without fluctuance or evidence of purulence or induration SKIN: Inspection of the skin reveals no rashes NEUROLOGIC: Alert and oriented x 4. Course Course Course Narrative: This is a 25-year-old female who presents with localized reaction after starting injections for rheumatoid arthritis. There is no evidence of hives, anaphylaxis, angioedema and patient instructed to treat this with [id number] analgesics and follow-up with the electronic pagination system operator 1st thing in the morning. She was given strict return precautions for any breathing problems or facial swelling. Discharge Plan Discharge Clinical Impression: Localized adverse drug reaction Patient Disposition: Home, Self-Care Instructions: Adverse Drug Reaction (ED) Additional Instructions: 1. Resuma todos los medicamentos caseros recetados. 2. Recomiende rosa Tylenol / ibuprofeno de venta fercho seg?n sea necesario para aliviar las molestias. 3. Sadie un seguimiento con russo reumat?logo por la ma?hoa para jeanette reevaluaci?n. 4. No dude en volver a leon servicio de urgencias si presenta alguna dificultad para respirar, hinchaz?n de la greg / lengua / labios. Prescriptions: No Action Cimzia 400 mg/2 mL (200 mg/mL x 2) syringe kit 400 mg subcut Q2W Qty: 1 RF: 0 Cimzia 400 mg/2 mL (200 mg/mL x 2) syringe kit 200 mg subcut Q2W Qty: 1 RF: 3 amoxicillin 500 mg tablet 500 mg PO Q12H Qty: 21 RF: 0 cetirizine 10 mg tablet 10 mg PO DAILY Qty: 30 RF: 0 ciprofloxacin-dexamethasone [Ciprodex] 0.3-0.1 % drops,suspension 4 drp otic (ears) BID 7 Days Qty: 7.5 RF: 0 diclofenac potassium 50 mg tablet 50 mg PO BID RF: 0 acetaminophen 650 mg/20.3 mL solution 650 mg PO Q6H PRNRF: 0 cyclobenzaprine 10 mg tablet 10 mg PO BEDTIME RF: 0 albuterol sulfate 90 mcg/actuation HFA aerosol inhaler 2 puff inhalation Q6H PRNRF: 0 cholecalciferol (vitamin D3) 25 mcg (1,000 unit) capsule 25 mcg PO DAILY Qty: 30 RF: 5 prednisone 5 mg tablet See Rx Instructions PO DAILY Qty: 50 RF: 0 Referrals: Marzena Strong MD [Primary Care Provider] - 2 days (Re-evaluation for localized reaction at site of injections that were started on Friday. No evidence of anaphylaxis, hives, or angioedema.) Print Language: Estonian
== END 2020-07-09 21:56 | disposition home or self-care (01) ==
PROVIDERS: Emergency Provider Student in an Organized Health Care Education/Training Program; PCP Internal Medicine
DX: R22.43 Localized swelling, mass and lump, lower limb, bilateral (principal); T50.995A Adverse effect of other drugs, medicaments and biological substances, initial encounter; Y92.9 Unspecified place or not applicable; M06.9 Rheumatoid arthritis, unspecified; F17.200 Nicotine dependence, unspecified, uncomplicated
CPT/HCPCS: 99282; 99284

== ENCOUNTER 2020-07-26 10:51 | Emergency (ER) | payer OTHER, MEDICAID, SELFPAY ==
--- NOTE | ~2020-07-26 | XR_ITS ---
EXAMINATION: XR CHEST CLINICAL INFORMATION: Chest pain COMPARISON: None TECHNIQUE: 2 views of the chest were obtained. FINDINGS: No significant abnormality is noted involving the heart, lungs, mediastinum, bony thorax or soft tissues. XR/XR chest 2V IMPRESSION: Unremarkable examination.
[2020-07-26 12:17] VITALS: BP 119/79; PULSE 86; RESP 16; TEMP 36.6; O2SAT 98; BMI 32.1
--- NOTE | 2020-07-26 12:22 | ED.CHESTPAIN ---
HPI - Chest Pain General Chief Complaint: Chest Pain Stated Complaint: CHEST PAIN Time Seen by Provider: 07/26/20 11:25 Source: patient Mode of arrival: ambulatory Limitations: no limitations History of Present Illness HPI narrative: Patient evaluated upon arrival in triage Patient triaged to main emergency room Patient has history of arthritis, vitamin-D deficiency and surgical history of 3 sections and cholecystectomy presenting today ambulatory via triage with complaint of reproducible right-sided chest pain ongoing for past ?couple days?. No upper respiratory symptoms, shortness of breath, lower extremity swelling, control, recent vaccination, travel or sick contacts. MD complaint: chest pain Timing of current episode: episodic Prior episodes: No Onset: other Pain location: right chest Pain radiation: none Severity: mild Quality: aching Relieving factors: movement Exacerbating factors: palpation and movement Context: other (No recent surgeries, travel, injury, medication, no history of TTP) Treatment prior to arrival: none Risk Factors Coronary artery disease risk factors: none Thoracic aortic dissection risk factors: none Related Data Home Medications Medication Instructions Recorded Confirmed acetaminophen 650 mg/20.3 mL oral 650 mg PO Q6H PRN 04/21/20 06/13/20 solution albuterol sulfate 90 mcg/actuation 2 puff INHALATION Q6H PRN 04/21/20 06/13/20 aerosol inhaler cyclobenzaprine 10 mg tablet 10 mg PO BEDTIME 04/21/20 06/13/20 diclofenac potassium 50 mg tablet 50 mg PO BID 04/21/20 06/13/20 Previous Rx's Medication Instructions Recorded amoxicillin 500 mg PO Q12H #21 tab 05/04/20 cetirizine 10 mg PO DAILY #30 tab 05/04/20 ciprofloxacin-dexamethasone 4 drp OTIC (EARS) BID 7 Days #7.5 05/04/20 [Ciprodex] ml cholecalciferol (vitamin D3) 25 25 mcg PO DAILY #30 cap 05/16/20 mcg (1,000 unit) capsule prednisone 5 mg tablet See Rx Instructions PO DAILY #50 06/13/20 tab certolizumab pegol 200 mg SUBCUT Q2W #1 ea 06/14/20 certolizumab pegol 400 mg SUBCUT Q2W #1 ea 06/14/20 Allergies Allergy/AdvReac Type Severity Reaction Status Date / Time aspirin Allergy Intermediate rash Verified 06/13/20 10:56 Review of Systems Review of Systems: Constitutional: No Weight loss, No Fever, No Chills, No Night Sweats, No Fatigue, No Malaise ENT/Mouth: No Hearing loss, No Ear Pain, No Nasal Congestion, No Sinus Pain, No Hoarseness, No sore throat, No Rhinorrhea, No Swallowing Difficulty Eyes: No Eye Pain, No Swelling, No Redness, No Foreign Body, No Discharge, No Vision Changes Cardiovascular: + Chest Pain, No SOB, No Dyspnea on Exertion, No Orthopnea, No Edema, No Palpitations Respiratory: No Cough, No Sputum, No Wheezing, No Dyspnea Gastrointestinal: No Nausea, No Vomiting, No Diarrhea, No Constipation, No abdominal Pain, No Hematochezia, No Melena Genitourinary: no irregular bleeding, No Dysuria, No Urinary Frequency, No Hematuria, No Urinary Incontinence, No Urgency, No Flank Pain, No Urinary Flow Changes, No Hesitancy Musculoskeletal: No joint pain, No Myalgias, No Joint Swelling Skin: No Skin Lesions, No rash Neuro: No Weakness, No Numbness, No Paresthesias, No Loss of Consciousness, No Dizziness, No Headache Psych: No Social Issues Heme/Lymph: No Bruising, No Bleeding,No Lymphadenopathy Endocrine: No Polyuria, No Polydipsia, No Temperature Intolerance PMFSH Past Medical History Medical History Myofascial pain syndrome Numbness in both hands Polyarthritis Surgical History H/O breast biopsy H/O shoulder surgery Hx of section Hx of cholecystectomy Family History Family History Maternal Grandmother Diabetes Father HTN (hypertension) Mother HTN (hypertension) Social History Social History Alcohol intake: never Smoking Status: Current some day smoker Advance Directives: No Advance Directives Information Provided: No Physical Exam Vital Signs: Vital Signs: Last Vital Signs Temp 98 F 07/26/20 12:17 Pulse 86 07/26/20 12:17 Resp 16 07/26/20 12:17 BP 119/79 07/26/20 12:17 Pulse Ox 98 07/26/20 12:17 Body Mass Index 32.1 Reviewed Const: Other: Walked in drinking soda General: cooperative, healthy appearing and comfortable Nutritional Appearance: average body habitus Orientation/consciousness: patient oriented x3 HENMT: Head: Yes normal to inspection Ears: hearing grossly normal bilaterally Eyes: General: appearance normal, both eyes and all related structures Visual Morales: normal visual morales by confrontation Neck: Neck: Yes normal visual inspection, No positive Brudzinski's sign, No positive Kernig's sign and No tender Thyroid: Thyroid normal Chest: Chest palpation & inspection: normal inspection of the chest and tenderness pectoral muscle on the left Resp: Effort & Inspection: normal respiratory effort Auscultation: clear to auscultation bilaterally Cardio: Jugular venous distension: no JVD Rhythm: regular rhythm Heart sounds: S1 normal heart sound present and S2 normal heart sound present GI: Inspection: Yes normal to inspection Palpation (GI): Soft to palpation, not firm, nontender and no guarding Percussion: Yes normal to percussion Auscultation: normal bowel sounds : General: Yes no CVA tenderness Back/Spine/Pelvis: Back: no CVA tenderness Skin: General skin exam: no rashes or lesions noted Neuro: General: patient oriented x3 Extrem: General: Yes normal to inspection Course Reevaluation(s) Reevaluation #1: 1225 Patient seen and evaluated in the triage area and triaged to the main emergency room She is well nontoxic appearing Perc negative VSS, not tachycardic, calm cooperative and smiling drinking soda AP an exam consistent with musculoskeletal in etiology lab work, chest x-ray UA including ordered and patient triaged to main emergency room. Reevaluation #2: Labs with very minimally elevated LFT no alcohol/abdominal pain, nausea, vomiting. Exam otherwise benign. It is or weight BMI of 32. She will follow-up with her primary care regarding this for monitoring Otherwise exam and findings reassuring chest x-ray, EKG nondiagnostic, troponin negative. Will discharge home with supportive for return, follow-up instructions. Stable for discharge. MDM - Chest Pain Lab Data Result diagrams: 07/26/20 13:00 07/26/20 13:00 Labs: Lab Results 07/26/20 07/26/20 07/26/20 Range/Units 12:56 12:56 13:00 WBC 7.6 (4.8-10.8) X10*3/uL RBC 4.36 (4.20-5.50) X10*6/uL Hgb 13.4 (12.0-16.0) g/dl Hct 40.8 (37-47) % MCV 93.6 (80-98) fL MCH 30.7 (27.0-33.0) pg MCHC 32.8 (31.0-35.0) g/dl RDW 12.6 (11.0-16.0) % Plt Count 290 (160-400) X10*3/uL MPV 10.0 (9.4-12.3) fL Immature Gran % (Auto) 0.3 (0.0-0.4) % Neut % (Auto) 44.4 L (45-73) % Lymph % (Auto) 43.0 H (20-40) % [place] % (Auto) 8.6 (2-11) % Eos % (Auto) 3.0 (0-4) % Baso % (Auto) 0.7 (0-2) % Lymph # (Auto) 3.3 (1.2-4.9) X10*3/uL [place] # (Auto) 0.7 (0.1-1.2) X10*3/uL Eos # (Auto) 0.2 (0.0-0.4) X10*3/uL Baso # (Auto) 0.1 (0.0-0.2) X10*3/uL Abs Immat Gran (auto) 0.02 (0.00-0.03) X10*3/uL Absolute Neuts (auto) 3.4 (2.0-8.3) X10*3/uL Absolute Nucleated RBC 0.000 (0.0-0.012) X10*3/uL Nucleated RBC % (auto) 0.0 (0.0-0.2) /100WBC PT (10.8-13.0) SEC INR (0.9-1.1) APTT (24.1-38.0) SEC Sodium (135-145) mmol/L Potassium (3.3-5.1) mmol/L Chloride (96-108) mmol/L Carbon Dioxide (22-29) mmol/L Anion Gap (12-20) BUN (9-16) mg/dL Creatinine (0.5-1.4) mg/dL Estim Creat Clear Calc Estimated GFR Random Glucose (60-115) mg/dL Calcium (8.4-10.2) mg/dL Total Bilirubin (0.0-1.0) mg/dL AST (5-31) U/L ALT (0-31) U/L Alkaline Phosphatase (39-117) U/L Troponin I High Sens (<3.5-17.0) ng/L Total Protein (6.5-8.0) g/dL Albumin (3.5-5.0) g/dL Urine Color YELLOW Urine Appearance CLEAR Urine pH 7.0 (5.0-8.0) Ur Specific [place] 1.020 (1.005-1.025) Urine Protein NEG (NEG-TRACE) MG/DL Urine Glucose (UA) NEG (NEG) MG/DL Urine Ketones NEG (NEG) MG/DL Urine Blood NEG (NEG) Urine Nitrite NEG (NEG) Ur Leukocyte Esterase NEG (NEG) Urine RBC 0 (0) /HPF Urine WBC 0 (0-4) /HPF Ur Squamous Epith Cells 1+ /LPF Urine Bacteria NONE /LPF Urine Test NEGATIVE (NEGATIVE) 07/26/20 07/26/20 07/26/20 Range/Units 13:00 13:00 13:00 WBC (4.8-10.8) X10*3/uL RBC (4.20-5.50) X10*6/uL Hgb (12.0-16.0) g/dl Hct (37-47) % MCV (80-98) fL MCH (27.0-33.0) pg MCHC (31.0-35.0) g/dl RDW (11.0-16.0) % Plt Count (160-400) X10*3/uL MPV (9.4-12.3) fL Immature Gran % (Auto) (0.0-0.4) % Neut % (Auto) (45-73) % Lymph % (Auto) (20-40) % [place] % (Auto) (2-11) % Eos % (Auto) (0-4) % Baso % (Auto) (0-2) % Lymph # (Auto) (1.2-4.9) X10*3/uL [place] # (Auto) (0.1-1.2) X10*3/uL Eos # (Auto) (0.0-0.4) X10*3/uL Baso # (Auto) (0.0-0.2) X10*3/uL Abs Immat Gran (auto) (0.00-0.03) X10*3/uL Absolute Neuts (auto) (2.0-8.3) X10*3/uL Absolute Nucleated RBC (0.0-0.012) X10*3/uL Nucleated RBC % (auto) (0.0-0.2) /100WBC PT 10.6 L (10.8-13.0) SEC INR 0.9 (0.9-1.1) APTT 35.9 (24.1-38.0) SEC Sodium 138 (135-145) mmol/L Potassium 4.4 (3.3-5.1) mmol/L Chloride 107 (96-108) mmol/L Carbon Dioxide 25 (22-29) mmol/L Anion Gap 10 L (12-20) BUN 15 (9-16) mg/dL Creatinine 0.86 (0.5-1.4) mg/dL Estim Creat Clear Calc 92.3 Estimated GFR > 60 Random Glucose 88 (60-115) mg/dL Calcium 9.4 (8.4-10.2) mg/dL Total Bilirubin 1.3 H (0.0-1.0) mg/dL AST 48 H D (5-31) U/L ALT 70 H (0-31) U/L Alkaline Phosphatase 80 (39-117) U/L Troponin I High Sens 4.9 (<3.5-17.0) ng/L Total Protein 7.0 (6.5-8.0) g/dL Albumin 4.3 (3.5-5.0) g/dL Urine Color Urine Appearance Urine pH (5.0-8.0) Ur Specific [place] (1.005-1.025) Urine Protein (NEG-TRACE) MG/DL Urine Glucose (UA) (NEG) MG/DL Urine Ketones (NEG) MG/DL Urine Blood (NEG) Urine Nitrite (NEG) Ur Leukocyte Esterase (NEG) Urine RBC (0) /HPF Urine WBC (0-4) /HPF Ur Squamous Epith Cells /LPF Urine Bacteria /LPF Urine Test (NEGATIVE) Imaging Data Chest x-ray: Radiologist's impression: [address] [id number] ReportSigned Patient: Leah BernalMR#: [id number]: 1995Acct:[id number]/Sex: 25 / FADM Date: 07/26/20Loc: EDAttending Dr: Ordering Physician: Abhi Hatfield NP Date of Service: 07/26/20 Procedure(s): XR chest 2V Accession Number(s): [id number] cc: Abhi Hatfield [employer] EXAMINATION: XR CHEST CLINICAL INFORMATION: Chest pain COMPARISON: None TECHNIQUE: 2 views of the chest were obtained. FINDINGS: No significant abnormality is noted involving the heart, lungs, mediastinum, bony thorax or soft tissues. XR/XR chest 2V IMPRESSION: Unremarkable examination. Dictated By:CARSON MCHUGH MDSigned By:<Electronically signed by CARSON MCHUGH MD in OV>07/26/20 1303 DD/ 1222TD/TT: Sliver Handler: [facility] ECG Data ECG #1: Interpretation: Vent. Rate : 087 BPM Atrial Rate : 087 BPM P-R Int : 128 ms QRS Dur : 080 ms QT Int : 350 ms P-R-T Axes : 053 059 018 degrees QTc Int : 421 ms Normal sinus rhythm with sinus arrhythmia Normal ECG No previous ECGs available Discharge Plan Discharge Clinical Impression: Costalchondritis, Abnormal liver function test Patient Disposition: Home, Self-Care Instructions: Costochondritis (ED) Additional Instructions: Gentle stretching, warm compresses Return if any concerns or worsening symptoms otherwise follow-up with her primary care doctor and discuss for further evaluation monitoring of your minimally elevated liver function tests Thank you Prescriptions: No Action Cimzia 400 mg/2 mL (200 mg/mL x 2) syringe kit 400 mg subcut Q2W Qty: 1 RF: 0 Cimzia 400 mg/2 mL (200 mg/mL x 2) syringe kit 200 mg subcut Q2W Qty: 1 RF: 3 amoxicillin 500 mg tablet 500 mg PO Q12H Qty: 21 RF: 0 cetirizine 10 mg tablet 10 mg PO DAILY Qty: 30 RF: 0 ciprofloxacin-dexamethasone [Ciprodex] 0.3-0.1 % drops,suspension 4 drp otic (ears) BID 7 Days Qty: 7.5 RF: 0 diclofenac potassium 50 mg tablet 50 mg PO BID RF: 0 acetaminophen 650 mg/20.3 mL solution 650 mg PO Q6H PRNRF: 0 cyclobenzaprine 10 mg tablet 10 mg PO BEDTIME RF: 0 albuterol sulfate 90 mcg/actuation HFA aerosol inhaler 2 puff inhalation Q6H PRNRF: 0 cholecalciferol (vitamin D3) 25 mcg (1,000 unit) capsule 25 mcg PO DAILY Qty: 30 RF: 5 prednisone 5 mg tablet See Rx Instructions PO DAILY Qty: 50 RF: 0 Referrals: Marzena Strong MD [Primary Care Provider] - 2 weeks
[2020-07-26 13:10] LABS: MANUAL DIFF FLAG NO
[2020-07-26 13:12] LABS: Basophils Absolute Auto 0.1 X10*3/uL (0.0-0.2); Basophils Percent Auto 0.7 % (0-2); Eosinophils Absolute Auto 0.2 X10*3/uL (0.0-0.4); Hematocrit 40.8 % (37-47); Hemoglobin 13.4 g/dl (12.0-16.0); Imm Gran Abs Auto 0.02 X10*3/uL (0.00-0.03); Imm Gran Pct Auto 0.3 % (0.0-0.4); Lymphocytes Absolute Auto 3.3 X10*3/uL (1.2-4.9); Mean Corpuscular HGB Conc 32.8 g/dl (31.0-35.0); Mean Corpuscular Hemoglobin 30.7 pg (27.0-33.0); Mean Corpuscular Volume 93.6 fL (80-98); Monocytes Absolute Auto 0.7 X10*3/uL (0.1-1.2); Monocytes Percent Auto 8.6 % (2-11); Neutrophils Absolute Auto 3.4 X10*3/uL (2.0-8.3); Neutrophils Percent Auto 44.4 % (45-73); Platelet Count 290 X10*3/uL (160-400); Red Blood Count 4.36 X10*6/uL (4.20-5.50); Red Cell Distribution Width 12.6 % (11.0-16.0); White Blood Count 7.6 X10*3/uL (4.8-10.8)
[2020-07-26 13:20] LABS: INTERNATIONAL NORM RATIO 0.9 (0.9-1.1); Prothrombin Time 10.6 SEC (10.8-13.0)
[2020-07-26 13:23] LABS: Partial Thromboplastin Time 35.9 SEC (24.1-38.0)
[2020-07-26 13:29] LABS: Glucose Urine UA NEG (NEG); Leukocyte Esterase Urine NEG (NEG); Nitrite Urine NEG (NEG); Urine Blood NEG (NEG); Urine Ketones NEG (NEG); Urine Protein NEG (NEG-TRACE)
[2020-07-26 13:31] LABS: UPreg QC Valid A; Urine Pregnancy NEGATIVE (NEGATIVE)
[2020-07-26 13:32] LABS: Appearance Urine CLEAR; Color Urine YELLOW
[2020-07-26 13:43] LABS: RBC Urine 0 /HPF (0); Squamous Epithelial Cell Urine 1+ /LPF; WBC Urine 0 /HPF (0-4)
[2020-07-26 13:44] LABS: Alanine Aminotransferase 70 U/L (0-31); Albumin Level 4.3 g/dL (3.5-5.0); Alkaline Phosphatase 80 U/L (39-117); Anion Gap 10 (12-20); Aspartate Amino Transferase 48 U/L (5-31); Bilirubin Total 1.3 mg/dL (0.0-1.0); Blood Urea Nitrogen 15 mg/dL (9-16); Calcium 9.4 mg/dL (8.4-10.2); Carbon Dioxide 25 mmol/L (22-29); Chloride 107 mmol/L (96-108); Creatinine Clr Calc Pharmacy 92.3; Estimated Glomerular Filt Rate > 60; Glucose Random 88 mg/dL (60-115); Potassium 4.4 mmol/L (3.3-5.1); Sodium 138 mmol/L (135-145)
[2020-07-26 13:48] LABS: Troponin-I High Sensitivity 4.9 ng/L (<3.5-17.0)
[2020-07-26 18:22] VITALS: BP 126/82; PULSE 94; RESP 18; O2SAT 99
== END 2020-07-26 19:15 | disposition home or self-care (01) ==
PROVIDERS: Nurse Practitioner Primary Care; Physician Assistant Medical; Emergency Provider Emergency Medicine; PCP Internal Medicine
DX: M94.0 Chondrocostal junction syndrome [Tietze] (principal); R79.89 Other specified abnormal findings of blood chemistry; F17.200 Nicotine dependence, unspecified, uncomplicated
CPT/HCPCS: 36415; 71046; 80053; 81001; 81025; 84484; 85025; 85610; 85730; 93005; 99283; 99284

== ENCOUNTER 2020-08-08 17:09 | Emergency (ER) | payer MEDICAID, SELFPAY ==
[2020-08-08 17:44] VITALS: BP 128/74; PULSE 91; RESP 16; TEMP 37.1; O2SAT 99; BMI 32.1
[2020-08-08 19:04] LABS: MANUAL DIFF FLAG NO
[2020-08-08 19:05] LABS: Basophils Absolute Auto 0.1 X10*3/uL (0.0-0.2); Basophils Percent Auto 0.6 % (0-2); Eosinophils Absolute Auto 0.3 X10*3/uL (0.0-0.4); Eosinophils Percent Auto 3.3 % (0-4); Hematocrit 40.5 % (37-47); Hemoglobin 13.6 g/dl (12.0-16.0); Imm Gran Abs Auto 0.02 X10*3/uL (0.00-0.03); Imm Gran Pct Auto 0.2 % (0.0-0.4); Lymphocytes Absolute Auto 3.4 X10*3/uL (1.2-4.9); Lymphocytes Percent Auto 41.8 % (20-40); Mean Corpuscular HGB Conc 33.6 g/dl (31.0-35.0); Mean Corpuscular Hemoglobin 30.8 pg (27.0-33.0); Mean Corpuscular Volume 91.8 fL (80-98); Monocytes Absolute Auto 0.7 X10*3/uL (0.1-1.2); Neutrophils Absolute Auto 3.7 X10*3/uL (2.0-8.3); Neutrophils Percent Auto 45.1 % (45-73); Platelet Count 243 X10*3/uL (160-400); Red Blood Count 4.41 X10*6/uL (4.20-5.50); Red Cell Distribution Width 12.1 % (11.0-16.0); White Blood Count 8.1 X10*3/uL (4.8-10.8)
[2020-08-08 19:09] LABS: Appearance Urine CLEAR; Color Urine YELLOW; Glucose Urine UA NEG (NEG); Leukocyte Esterase Urine NEG (NEG); Nitrite Urine NEG (NEG); PH 5.5 (5.0-8.0); Specific Gravity - Urine >= 1.030 (1.005-1.025); Urine Blood NEG (NEG); Urine Ketones 5 MG/DL (NEG); Urine Protein NEG (NEG-TRACE)
[2020-08-08 19:10] LABS: UPreg QC Valid YES; Urine Pregnancy NEGATIVE (NEGATIVE)
[2020-08-08 19:36] LABS: Alanine Aminotransferase 31 U/L (0-31); Albumin Level 4.3 g/dL (3.5-5.0); Alkaline Phosphatase 84 U/L (39-117); Anion Gap 13 (12-20); Aspartate Amino Transferase 25 U/L (5-31); Bilirubin Total 0.8 mg/dL (0.0-1.0); Blood Urea Nitrogen 15 mg/dL (9-16); Calcium 9.2 mg/dL (8.4-10.2); Carbon Dioxide 26 mmol/L (22-29); Chloride 104 mmol/L (96-108); Creatinine Clr Calc Pharmacy 101.7; Estimated Glomerular Filt Rate > 60; Glucose Random 116 mg/dL (60-115); Sodium 139 mmol/L (135-145); Total Protein 7.1 g/dL (6.5-8.0)
--- NOTE | 2020-08-08 23:45 | ED_ITS ---
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 She otherwise has negative surgical history, and denies any associated fevers, chills, shortness of breath, urinary pain/burning/frequency. Related Data Home Medications Medication Instructions Recorded Confirmed acetaminophen 650 mg/20.3 mL oral 650 mg PO Q6H PRN 04/21/20 06/13/20 solution albuterol sulfate 90 mcg/actuation 2 puff INHALATION Q6H PRN 04/21/20 06/13/20 aerosol inhaler cyclobenzaprine 10 mg tablet 10 mg PO BEDTIME 04/21/20 06/13/20 diclofenac potassium 50 mg tablet 50 mg PO BID 04/21/20 06/13/20 Previous Rx's Medication Instructions Recorded amoxicillin 500 mg PO Q12H #21 tab 05/04/20 cetirizine 10 mg PO DAILY #30 tab 05/04/20 ciprofloxacin-dexamethasone 4 drp OTIC (EARS) BID 7 Days #7.5 05/04/20 [Ciprodex] ml cholecalciferol (vitamin D3) 25 25 mcg PO DAILY #30 cap 05/16/20 mcg (1,000 unit) capsule prednisone 5 mg tablet See Rx Instructions PO DAILY #50 06/13/20 tab certolizumab pegol 200 mg SUBCUT Q2W #1 ea 06/14/20 certolizumab pegol 400 mg SUBCUT Q2W #1 ea 06/14/20 Allergies Allergy/AdvReac Type Severity Reaction Status Date / Time aspirin Allergy Intermediate rash Verified 06/13/20 10:56 Review of Systems Review of Systems Pertinent positives and negatives as stated in HPI 10 point review of systems otherwise negative. Physical Exam Vital Signs: Vital Signs: Last Vital Signs Temp 98.7 F 08/08/20 17:44 Pulse 91 08/08/20 17:44 Resp 16 08/08/20 17:44 BP 128/74 08/08/20 17:44 Pulse Ox 99 08/08/20 17:44 Body Mass Index 32.1 VITAL SIGNS: Reviewed. GENERAL: Well developed, well nourished, in no acute distress. HEAD: Normocephalic/atraumatic EYES: PERRLA, EOMI OROPHARYNX: no oral lesions noted, posterior pharynx clear NECK: Supple, no adenopathy LUNGS: Normal breath sounds. No adventitious sounds or accessory muscle use. SpO2<99> CARDIOVASCULAR: Regular rate and rhythm without noted murmurs ABDOMEN: Soft, non-tender, non-distended with bowel sounds, no CVA tenderness NEUROLOGIC: Alert and oriented x 4. Course Course Course Narrative: 25-year-old female with history and clinical presentation suggestive of UTI, but doubt other intra-abdominal/ovarian pathologies as patient recently had both CT scan as well as ultrasound that were negative for acute findings. Review of all investigations is negative for any acute findings and no teressa cation to proceed further with repeat imaging at this time. All results and findings were discussed with patient at bedside and she was encouraged to follow up with her primary care provider for additional outpatient workup as indicated. MDM - Abdominal Pain Lab Data Result diagrams: 08/08/20 18:57 08/08/20 18:57 Labs: Lab Results 08/08/20 08/08/20 08/08/20 Range/Units 18:57 18:57 18:57 WBC 8.1 (4.8-10.8) X10*3/uL RBC 4.41 (4.20-5.50) X10*6/uL Hgb 13.6 (12.0-16.0) g/dl Hct 40.5 (37-47) % MCV 91.8 (80-98) fL MCH 30.8 (27.0-33.0) pg MCHC 33.6 (31.0-35.0) g/dl RDW 12.1 (11.0-16.0) % Plt Count 243 (160-400) X10*3/uL MPV 10.0 (9.4-12.3) fL Immature Gran % (Auto) 0.2 (0.0-0.4) % Neut % (Auto) 45.1 (45-73) % Lymph % (Auto) 41.8 H (20-40) % [place] % (Auto) 9.0 (2-11) % Eos % (Auto) 3.3 (0-4) % Baso % (Auto) 0.6 (0-2) % Lymph # (Auto) 3.4 (1.2-4.9) X10*3/uL [place] # (Auto) 0.7 (0.1-1.2) X10*3/uL Eos # (Auto) 0.3 (0.0-0.4) X10*3/uL Baso # (Auto) 0.1 (0.0-0.2) X10*3/uL Abs Immat Gran (auto) 0.02 (0.00-0.03) X10*3/uL Absolute Neuts (auto) 3.7 (2.0-8.3) X10*3/uL Absolute Nucleated RBC 0.000 (0.0-0.012) X10*3/uL Nucleated RBC % (auto) 0.0 (0.0-0.2) /100WBC Hold Blue Top SEE NOTE Sodium 139 (135-145) mmol/L Potassium 4.0 (3.3-5.1) mmol/L Chloride 104 (96-108) mmol/L Carbon Dioxide 26 (22-29) mmol/L Anion Gap 13 (12-20) BUN 15 (9-16) mg/dL Creatinine 0.78 (0.5-1.4) mg/dL Estim Creat Clear Calc 101.7 Estimated GFR > 60 Random Glucose 116 H (60-115) mg/dL Calcium 9.2 (8.4-10.2) mg/dL Total Bilirubin 0.8 (0.0-1.0) mg/dL AST 25 D (5-31) U/L ALT 31 (0-31) U/L Alkaline Phosphatase 84 (39-117) U/L Total Protein 7.1 (6.5-8.0) g/dL Albumin 4.3 (3.5-5.0) g/dL Urine Color Urine Appearance Urine pH (5.0-8.0) Ur Specific [place] (1.005-1.025) Urine Protein (NEG-TRACE) MG/DL Urine Glucose (UA) (NEG) MG/DL Urine Ketones (NEG) MG/DL Urine Blood (NEG) Urine Nitrite (NEG) Ur Leukocyte Esterase (NEG) Urine Test (NEGATIVE) 04/27/21 04/27/21 Range/Units 18:57 18:57 WBC (4.8-10.8) X10*3/uL RBC (4.20-5.50) X10*6/uL Hgb (12.0-16.0) g/dl Hct (37-47) % MCV (80-98) fL MCH (27.0-33.0) pg MCHC (31.0-35.0) g/dl RDW (11.0-16.0) % Plt Count (160-400) X10*3/uL MPV (9.4-12.3) fL Immature Gran % (Auto) (0.0-0.4) % Neut % (Auto) (45-73) % Lymph % (Auto) (20-40) % [place] % (Auto) (2-11) % Eos % (Auto) (0-4) % Baso % (Auto) (0-2) % Lymph # (Auto) (1.2-4.9) X10*3/uL [place] # (Auto) (0.1-1.2) X10*3/uL Eos # (Auto) (0.0-0.4) X10*3/uL Baso # (Auto) (0.0-0.2) X10*3/uL Abs Immat Gran (auto) (0.00-0.03) X10*3/uL Absolute Neuts (auto) (2.0-8.3) X10*3/uL Absolute Nucleated RBC (0.0-0.012) X10*3/uL Nucleated RBC % (auto) (0.0-0.2) /100WBC Hold Blue Top Sodium (135-145) mmol/L Potassium (3.3-5.1) mmol/L Chloride (96-108) mmol/L Carbon Dioxide (22-29) mmol/L Anion Gap (12-20) BUN (9-16) mg/dL Creatinine (0.5-1.4) mg/dL Estim Creat Clear Calc Estimated GFR Random Glucose (60-115) mg/dL Calcium (8.4-10.2) mg/dL Total Bilirubin (0.0-1.0) mg/dL AST (5-31) U/L ALT (0-31) U/L Alkaline Phosphatase (39-117) U/L Total Protein (6.5-8.0) g/dL Albumin (3.5-5.0) g/dL Urine Color YELLOW Urine Appearance CLEAR Urine pH 5.5 (5.0-8.0) Ur Specific [place] >= 1.030 H (1.005-1.025) Urine Protein NEG (NEG-TRACE) MG/DL Urine Glucose (UA) NEG (NEG) MG/DL Urine Ketones 5 (NEG) MG/DL Urine Blood NEG (NEG) Urine Nitrite NEG (NEG) Ur Leukocyte Esterase NEG (NEG) Urine Test NEGATIVE (NEGATIVE) Discharge Plan Discharge Clinical Impression: Abdominal pain Patient Disposition: Home, Self-Care Instructions: Abdominal Pain (ED) Additional Instructions: 1. Reanude todos los medicamentos caseros. 2. Sadie un seguimiento con russo proveedor de atenci?n primaria para jeanette reevaluaci?n y un tratamiento adicional. Regrese al departamento de emergencias por cualquier empeoramiento nolan de hiram s?ntomas. Prescriptions: No Action Cimzia 400 mg/2 mL (200 mg/mL x 2) syringe kit 400 mg subcut Q2W Qty: 1 RF: 0 Cimzia 400 mg/2 mL (200 mg/mL x 2) syringe kit 200 mg subcut Q2W Qty: 1 RF: 3 amoxicillin 500 mg tablet 500 mg PO Q12H Qty: 21 RF: 0 cetirizine 10 mg tablet 10 mg PO DAILY Qty: 30 RF: 0 ciprofloxacin-dexamethasone [Ciprodex] 0.3-0.1 % drops,suspension 4 drp otic (ears) BID 7 Days Qty: 7.5 RF: 0 diclofenac potassium 50 mg tablet 50 mg PO BID RF: 0 acetaminophen 650 mg/20.3 mL solution 650 mg PO Q6H PRNRF: 0 cyclobenzaprine 10 mg tablet 10 mg PO BEDTIME RF: 0 albuterol sulfate 90 mcg/actuation HFA aerosol inhaler 2 puff inhalation Q6H PRNRF: 0 cholecalciferol (vitamin D3) 25 mcg (1,000 unit) capsule 25 mcg PO DAILY Qty: 30 RF: 5 prednisone 5 mg tablet See Rx Instructions PO DAILY Qty: 50 RF: 0 Referrals: Barciona Main,Marzena, MD [Primary Care Provider] - 2 days (Re-evaluation after seen here in the emergency department with complaints of lower abdominal discomfort, however all evaluations were negative and patient had a CT scan as well as ultrasound on an additional ER visit on 07/26.) Print Language: English [facility] Past Medical History Source: nursing notes reviewed Medical History Myofascial pain syndrome Numbness in both hands Polyarthritis Rheumatoid arthritis Surgical History H/O breast biopsy H/O shoulder surgery Hx of section Hx of cholecystectomy Family History Family History Maternal Grandmother Diabetes Father HTN (hypertension) Mother HTN (hypertension) Social History Social History Alcohol intake: never Smoking Status: Current some day smoker Advance Directives: No Advance Directives Information Provided: Yes
== END 2020-08-08 23:59 | disposition home or self-care (01) ==
PROVIDERS: Emergency Provider Student in an Organized Health Care Education/Training Program; PCP Internal Medicine
DX: R10.30 Lower abdominal pain, unspecified (principal); R11.0 Nausea; F17.200 Nicotine dependence, unspecified, uncomplicated
CPT/HCPCS: 36415; 80053; 81003; 81025; 85025; 99283

== ENCOUNTER 2020-09-18 14:34 | Emergency (ER) | payer MEDICAID, SELFPAY ==
[2020-09-18 14:54] VITALS: BP 136/92; PULSE 88; RESP 20; TEMP 36.6; O2SAT 99; BMI 41.7
--- NOTE | 2020-09-18 15:27 | ECG_ITS ---
Test Reason : WEAKNESS Blood Pressure : / mmHG Vent. Rate : 079 BPM Atrial Rate : 079 BPM P-R Int : 134 ms QRS Dur : 080 ms QT Int : 370 ms P-R-T Axes : 047 055 023 degrees QTc Int : 424 ms Normal sinus rhythm with sinus arrhythmia Normal ECG When compared with ECG of 26-JUL-2020 14:39, Nonspecific T wave abnormality no longer evident in Anterior leads Referred By: Gladys Lozada Electronically Signed By:JESUS GREENWOOD MD
--- NOTE | 2020-09-18 15:28 | ED_ITS ---
HPI - General Adult General Chief complaint: General Medical <KY Rock - Last Filed: 09/18/20 17:02> Stated complaint: HEADACHE <KY Rock Last Filed: 09/18/20 17:02> Time Seen by Provider: 09/18/20 15:14 <KY Rock Last Filed: 09/18/20 17:02> Source: patient <KY Rock Last Filed: 09/18/20 17:02> Mode of arrival: ambulatory <KY Rock Last Filed: 09/18/20 17:02> Limitations: language barrier <KY Rock Last Filed: 09/18/20 17:02> History of Present Illness HPI narrative: 25 y/o female with history of rheumatoid arthritis, obesity who presents to the ER with left sided headache that started yesterday. She states it gradually started behind her left eye and now is the whole left side of her head. She went to her PCP and an EKG was done which showed an abnormality, details unknown. She says she has a little bit of chest pain but no shortness of breath. Pain is central, non-radiating. She reports her headache is throbbing in nature, worse with light and noise. She has never had a headache like this before. She denies any weakness, numbness, vision changes, neck pain or fever. <KY Rock - Last Filed: 09/18/20 17:02> MD complaint: headahce <KY Rock Last Filed: 09/18/20 17:02> Onset (ago): day(s) (1) <KY Rock Last Filed: 09/18/20 17:02> Location: head <KY Rock Last Filed: 09/18/20 17:02> Radiation: non-radiation <KY Rock Last Filed: 09/18/20 17:02> Severity: severe <KY Rock Last Filed: 09/18/20 17:02> Severity scale (1-10): 10 <KY Rock Last Filed: 09/18/20 17:02> Quality: stabbing, aching and constant <KY Rock - Last Filed: 09/18/20 17:02> Pain Consistency: constant <KY Rock - Last Filed: 09/18/20 17:02> Relieving factors: none <KY Rock - Last Filed: 09/18/20 17:02> Exacerbating factors: other (noise, light) <KY Rock - Last Filed: 09/18/20 17:02> Associated symptoms: chest pain and headaches <KY Rock - Last Filed: 09/18/20 17:02> Treatments prior to arrival: none <KY Rock - Last Filed: 09/18/20 17:02> Related Data Home medications: Home Medications Medication Instructions Recorded Confirmed acetaminophen 650 mg/20.3 mL oral 650 mg PO Q6H PRN 04/21/20 06/13/20 solution albuterol sulfate 90 mcg/actuation 2 puff INHALATION Q6H PRN 04/21/20 06/13/20 aerosol inhaler cyclobenzaprine 10 mg tablet 10 mg PO BEDTIME 04/21/20 06/13/20 diclofenac potassium 50 mg tablet 50 mg PO BID 04/21/20 06/13/20 Previous Rx's Medication Instructions Recorded amoxicillin 500 mg PO Q12H #21 tab 05/04/20 cetirizine 10 mg PO DAILY #30 tab 05/04/20 ciprofloxacin-dexamethasone 4 drp OTIC (EARS) BID 7 Days #7.5 05/04/20 [Ciprodex] ml cholecalciferol (vitamin D3) 25 25 mcg PO DAILY #30 cap 05/16/20 mcg (1,000 unit) capsule prednisone 5 mg tablet See Rx Instructions PO DAILY #50 06/13/20 tab certolizumab pegol 200 mg SUBCUT Q2W #1 ea 06/14/20 certolizumab pegol 400 mg SUBCUT Q2W #1 ea 06/14/20 txtajvdasw-cvdilntptfubj-sdyw 1 cap PO Q6H PRN #10 cap 09/18/20 [Fioricet] <KY Rock Last Filed: 09/18/20 17:02> Allergies/adverse reactions: Allergies Allergy/AdvReac Type Severity Reaction Status Date / Time aspirin Allergy Intermediate rash Verified 06/13/20 10:56 <KY Rock - Last Filed: 09/18/20 17:02> Review of Systems Review of Systems: Constitutional: No Fever, No Chills ENT/Mouth: No sore throat, No Rhinorrhea, No Swallowing Difficulty Eyes: No Eye Pain, No Swelling, No Redness Cardiovascular: + Chest Pain, No SOB, No Orthopnea, No Edema Respiratory: No Cough, No Sputum, No Wheezing, No dyspnea Gastrointestinal: No Nausea, No Vomiting, No Diarrhea, No abdominal Pain, No Hematochezia, No Melena Genitourinary: No Dysuria, No Urinary Frequency, No Hematuria Musculoskeletal: No joint pain, No Myalgias Skin: No Skin Lesions, No rash Neuro: No Weakness, No Numbness, No Dizziness, + Headache Psych: No Anxiety/Panic, No Depression Heme/Lymph: No Bruising, No Lymphadenopathy Endocrine: No Polyuria, No Polydipsia <KY Rock - Last Filed: 09/18/20 17:02> FORMERLY [facility] Past Medical History Attestation statement: The following information was validated with the patient. <KY Rock - Last Filed: 09/18/20 17:02> Medical History: Medical History Myofascial pain syndrome Numbness in both hands Polyarthritis Rheumatoid arthritis <KY Rock - Last Filed: 09/18/20 17:02> Surgical History: Surgical History H/O breast biopsy H/O shoulder surgery Hx of section Hx of cholecystectomy <KY Rock - Last Filed: 09/18/20 17:02> Family History Family History: Family History Maternal Grandmother Diabetes Father HTN (hypertension) Mother HTN (hypertension) <KY Rock - Last Filed: 09/18/20 17:02> Social History Social History: Social History Alcohol intake: never Advance Directives: No Advance Directives Information Provided: No <KY Rock - Last Filed: 09/18/20 17:02> Physical Exam Vital Signs: Vital Signs: Last Vital Signs Temp 97.8 F 09/18/20 14:54 Pulse 88 09/18/20 14:54 Resp 20 09/18/20 14:54 BP 136/92 H 09/18/20 14:54 Pulse Ox 99 09/18/20 14:54 Body Mass Index 41.7 Appearance: Alert. Oriented X3. No acute distress. Eyes: Pupils equal, round and reactive to light. EOMI, no nystagmus ENT: Pharynx normal. Neck: Normal inspection. Neck supple. CVS: Normal heart rate and rhythm. Pulses normal. Respiratory: No respiratory distress. Breath sounds normal. Abdomen: Obese, Soft and nontender. +BS x4 Skin: Skin warm and dry. Normal skin color. Normal skin turgor. No rashes. Extremities: No lower extremity edema. Neuro: Oriented X 3. No motor deficit. No sensory deficit. Speaks in complete sentences, non-focal <KY Rock - Last Filed: 09/18/20 17:02> Vital Signs: Last Vital Signs Temp 97.8 F 09/18/20 14:54 Pulse 88 09/18/20 14:54 Resp 20 09/18/20 14:54 BP 136/92 H 09/18/20 14:54 Pulse Ox 99 09/18/20 14:54 Body Mass Index 41.7 <KY Banks - Last Filed: 09/18/20 18:41> Course Course Course Narrative: 25 y/o female presenting with left sided headache x1 day as well as abnormal EKG from PCP office. Minimal chest pain. She appears well and exam is benign. Clinical presentation is consistent with migraine type headache. Will treat with Toradol, Reglan and Benadryl. Will get EKG and labs as well given reports of chest pain. <KY Rock - Last Filed: 09/18/20 17:02> Patient's lab work came back normal. Patient is sleeping comfortably in bed. Patient states she no longer has headache. Fioricet already sent to pharmacy by previous provider. Patient informed to follow-up with the PCP immediately. Patient presently denies any chest pain. Negative for any neuro deficit. Troponin negative. <KY Banks - Last Filed: 09/18/20 18:41> Reevaluation(s) Reevaluation #1: Headache significantly improved with meds. Lab workup pending. Signed out to Pj Arizmendi PA-C who will f/u labs. <KY Rock - Last Filed: 09/18/20 17:02> Medical Decision Making Lab Data Result diagrams: : 09/18/20 16:43 09/18/20 16:43 <KY Rock - Last Filed: 09/18/20 17:02> Labs: Lab Results 09/18/20 09/18/20 09/18/20 Range/Units 16:43 16:43 16:43 WBC 6.9 (4.8-10.8) X10*3/uL RBC 4.27 (4.20-5.50) X10*6/uL Hgb 13.0 (12.0-16.0) g/dl Hct 39.1 (37-47) % MCV 91.6 (80-98) fL MCH 30.4 (27.0-33.0) pg MCHC 33.2 (31.0-35.0) g/dl RDW 12.0 (11.0-16.0) % Plt Count 245 (160-400) X10*3/uL MPV 10.6 (9.4-12.3) fL Immature Gran % (Auto) 0.3 (0.0-0.4) % Neut % (Auto) 52.6 (45-73) % Lymph % (Auto) 32.6 (20-40) % [place] % (Auto) 10.6 (2-11) % Eos % (Auto) 3.2 (0-4) % Baso % (Auto) 0.7 (0-2) % Lymph # (Auto) 2.3 (1.2-4.9) X10*3/uL [place] # (Auto) 0.7 (0.1-1.2) X10*3/uL Eos # (Auto) 0.2 (0.0-0.4) X10*3/uL Baso # (Auto) 0.1 (0.0-0.2) X10*3/uL Abs Immat Gran (auto) 0.02 (0.00-0.03) X10*3/uL Absolute Neuts (auto) 3.6 (2.0-8.3) X10*3/uL Absolute Nucleated RBC 0.000 (0.0-0.012) X10*3/uL Nucleated RBC % (auto) 0.0 (0.0-0.2) /100WBC Sodium 141 (135-145) mmol/L Potassium 4.2 (3.3-5.1) mmol/L Chloride 106 (96-108) mmol/L Carbon Dioxide 28 (22-29) mmol/L Anion Gap 11 L (12-20) BUN 13 (9-16) mg/dL Creatinine 0.76 (0.5-1.4) mg/dL Estim Creat Clear Calc 120.7 Estimated GFR > 60 Random Glucose 87 (60-115) mg/dL Calcium 9.2 (8.4-10.2) mg/dL Troponin I High Sens 3.5 (<3.5-17.0) ng/L <KY Rock - Last Filed: 09/18/20 17:02> Lab Results 09/18/20 09/18/20 09/18/20 Range/Units 16:43 16:43 16:43 WBC 6.9 (4.8-10.8) X10*3/uL RBC 4.27 (4.20-5.50) X10*6/uL Hgb 13.0 (12.0-16.0) g/dl Hct 39.1 (37-47) % MCV 91.6 (80-98) fL MCH 30.4 (27.0-33.0) pg MCHC 33.2 (31.0-35.0) g/dl RDW 12.0 (11.0-16.0) % Plt Count 245 (160-400) X10*3/uL MPV 10.6 (9.4-12.3) fL Immature Gran % (Auto) 0.3 (0.0-0.4) % Neut % (Auto) 52.6 (45-73) % Lymph % (Auto) 32.6 (20-40) % [place] % (Auto) 10.6 (2-11) % Eos % (Auto) 3.2 (0-4) % Baso % (Auto) 0.7 (0-2) % Lymph # (Auto) 2.3 (1.2-4.9) X10*3/uL [place] # (Auto) 0.7 (0.1-1.2) X10*3/uL Eos # (Auto) 0.2 (0.0-0.4) X10*3/uL Baso # (Auto) 0.1 (0.0-0.2) X10*3/uL Abs Immat Gran (auto) 0.02 (0.00-0.03) X10*3/uL Absolute Neuts (auto) 3.6 (2.0-8.3) X10*3/uL Absolute Nucleated RBC 0.000 (0.0-0.012) X10*3/uL Nucleated RBC % (auto) 0.0 (0.0-0.2) /100WBC Sodium 141 (135-145) mmol/L Potassium 4.2 (3.3-5.1) mmol/L Chloride 106 (96-108) mmol/L Carbon Dioxide 28 (22-29) mmol/L Anion Gap 11 L (12-20) BUN 13 (9-16) mg/dL Creatinine 0.76 (0.5-1.4) mg/dL Estim Creat Clear Calc 120.7 Estimated GFR > 60 Random Glucose 87 (60-115) mg/dL Calcium 9.2 (8.4-10.2) mg/dL Troponin I High Sens 3.5 (<3.5-17.0) ng/L <KY Banks - Last Filed: 09/18/20 18:41> ECG Data Attestation: I personally reviewed and interpreted this ECG as follows: <KY Ashley - Last Filed: 09/18/20 17:02> Interpretation: normal sinus rhythm with sinus arrythmia, HR 79 bpm, normal HI interval, normal QRS, t-wave inversion in lead V1, no ST segment elevations or depressions,. <KY Rock - Last Filed: 09/18/20 17:02> Discharge Plan Discharge Clinical Impression: Headache Qualifiers: Headache type: unspecified Headache chronicity pattern: acute headache Intractability: not intractable Qualified Code(s): R51.9 - Headache, unspecified <KY Rock - Last Filed: 09/18/20 17:02> Instructions: General Headache (ED) <KY Rock - Last Filed: 09/18/20 17:02> Prescriptions: New gejhsmzpta-mqptcvwntawai-fiws [Fioricet] 50-300-40 mg capsule 1 cap PO Q6H PRN (Reason: pain) Qty: 10 RF: 0 No Action Cimzia 400 mg/2 mL (200 mg/mL x 2) syringe kit 400 mg subcut Q2W Qty: 1 RF: 0 Cimzia 400 mg/2 mL (200 mg/mL x 2) syringe kit 200 mg subcut Q2W Qty: 1 RF: 3 amoxicillin 500 mg tablet 500 mg PO Q12H Qty: 21 RF: 0 cetirizine 10 mg tablet 10 mg PO DAILY Qty: 30 RF: 0 ciprofloxacin-dexamethasone [Ciprodex] 0.3-0.1 % drops,suspension 4 drp otic (ears) BID 7 Days Qty: 7.5 RF: 0 diclofenac potassium 50 mg tablet 50 mg PO BID RF: 0 acetaminophen 650 mg/20.3 mL solution 650 mg PO Q6H PRNRF: 0 cyclobenzaprine 10 mg tablet 10 mg PO BEDTIME RF: 0 albuterol sulfate 90 mcg/actuation HFA aerosol inhaler 2 puff inhalation Q6H PRNRF: 0 cholecalciferol (vitamin D3) 25 mcg (1,000 unit) capsule 25 mcg PO DAILY Qty: 30 RF: 5 prednisone 5 mg tablet See Rx Instructions PO DAILY Qty: 50 RF: 0 <KY Rock - Last Filed: 09/18/20 17:02> Print Language: Citizen Of [place] <KY Rock - Last Filed: 09/18/20 17:02>
[2020-09-18] MEDS: Ketorolac Tromethamine 30 MG/ML VIAL IVPUSH (15:48)
[2020-09-18] MEDS: diphenhydrAMINE HCL 50 MG/ML VIAL 25 MG IVPUSH (15:48)
[2020-09-18] MEDS: Metoclopramide HCl 10 MG/2 ML VIAL IVPUSH (15:49)
[2020-09-18 16:46] LABS: MANUAL DIFF FLAG NO
[2020-09-18] MEDS: 0.9 % Sodium Chloride 1,000 ML 999 ML IVCONT (16:49)
[2020-09-18 16:54] LABS: Basophils Absolute Auto 0.1 X10*3/uL (0.0-0.2); Basophils Percent Auto 0.7 % (0-2); Eosinophils Absolute Auto 0.2 X10*3/uL (0.0-0.4); Eosinophils Percent Auto 3.2 % (0-4); Hematocrit 39.1 % (37-47); Imm Gran Abs Auto 0.02 X10*3/uL (0.00-0.03); Imm Gran Pct Auto 0.3 % (0.0-0.4); Lymphocytes Absolute Auto 2.3 X10*3/uL (1.2-4.9); Lymphocytes Percent Auto 32.6 % (20-40); Mean Corpuscular HGB Conc 33.2 g/dl (31.0-35.0); Mean Corpuscular Hemoglobin 30.4 pg (27.0-33.0); Mean Corpuscular Volume 91.6 fL (80-98); Mean Platelet Volume 10.6 fL (9.4-12.3); Monocytes Absolute Auto 0.7 X10*3/uL (0.1-1.2); Monocytes Percent Auto 10.6 % (2-11); Neutrophils Absolute Auto 3.6 X10*3/uL (2.0-8.3); Neutrophils Percent Auto 52.6 % (45-73); Platelet Count 245 X10*3/uL (160-400); Red Blood Count 4.27 X10*6/uL (4.20-5.50); White Blood Count 6.9 X10*3/uL (4.8-10.8)
[2020-09-18 17:19] LABS: Anion Gap 11 (12-20); Blood Urea Nitrogen 13 mg/dL (9-16); Calcium 9.2 mg/dL (8.4-10.2); Carbon Dioxide 28 mmol/L (22-29); Chloride 106 mmol/L (96-108); Creatinine Clr Calc Pharmacy 120.7; Estimated Glomerular Filt Rate > 60; Glucose Random 87 mg/dL (60-115); Potassium 4.2 mmol/L (3.3-5.1); Sodium 141 mmol/L (135-145)
[2020-09-18 17:23] LABS: Troponin-I High Sensitivity 3.5 ng/L (<3.5-17.0)
== END 2020-09-18 19:04 | disposition home or self-care (01) ==
PROVIDERS: Physician Assistant; Emergency Provider Emergency Medicine; PCP Internal Medicine
DX: R51.9 Headache, unspecified (principal)
CPT/HCPCS: 36415; 80048; 84484; 85025; 93005; 96365; 96375; 99283; 99284; J1200; J1885; J2765

== ENCOUNTER 2020-10-08 09:25 | Emergency (ER) | payer MEDICAID, SELFPAY ==
--- NOTE | ~2020-10-08 | CT_ITS ---
EXAMINATION: CT ABDOMEN AND PELVIS WITH CONTRAST CLINICAL INFORMATION: Central abdominal pain, tenderness and nausea COMPARISON: CT abdomen and pelvis 06/15/2020 TECHNIQUE: Multidetector volumetric images were obtained from the superior aspect of the liver through the pubic symphysis following administration 85 mL of Omnipaque 350 intravenous contrast. Sagittal and coronal reformatted images were obtained on the technologist's workstation. Oral contrast: No This CT examination was performed using dose optimization techniques as appropriate, variously including the following: *Automated exposure control *Adjustment of mA and/or kV according to patient size (this includes techniques or standardized protocols for targeted exams where dose is matched to indication/reason for exam; i.e. extremities or head) *Use of iterative reconstruction technique DLP: 928 mGy-cm FINDINGS: LUNG BASES: Lung bases are clear. The heart size is normal. There is a small hiatal hernia. LIVER, GALLBLADDER, AND BILIARY TREE: The liver is enlarged in size, normal shape, and diminished attenuation. No focal hepatic lesion or biliary ductal dilatation is present. The gallbladder has been surgically removed. PANCREAS: Unremarkable. SPLEEN: Unremarkable. ADRENAL GLANDS: Unremarkable. KIDNEYS AND URETERS: The kidneys are normal in size, shape, and attenuation. No hydronephrosis, hydroureter, or calculi seen. No perinephric stranding. BLADDER: Unremarkable. GASTROINTESTINAL TRACT: There is scattered stool and gas seen throughout the colon without any significant distention. The small bowel loops are normal caliber. Appendix is not visualized well. IC junction is normal. ABDOMINAL WALL: No significant hernia is appreciated. LYMPH NODES: Normal. VASCULAR: Unremarkable. PELVIC VISCERA: The uterus is anteverted and appears unremarkable. OSSEOUS STRUCTURES: No lytic or sclerotic process seen CT/CT abdomen pelvis w con IMPRESSION: No acute intra-abdominal process seen. Mild hepatomegaly with diffuse fatty replacement. No focal lesion. Small hiatal hernia.
[2020-10-08 09:29] VITALS: BP 140/73; PULSE 84; RESP 18; TEMP 36.6; O2SAT 97; BMI 33.0
[2020-10-08 09:51] VITALS: BP 118/77; PULSE 87; RESP 16; TEMP 36.7; O2SAT 98
--- NOTE | 2020-10-08 10:00 | ED.ABDPAIN ---
HPI - Abdominal Pain General Chief Complaint: Abdominal Pain Stated Complaint: ABD PAIN Time Seen by Provider: 10/08/20 09:32 Source: patient Mode of arrival: ambulatory Limitations: no limitations History of Present Illness HPI narrative: 25 y/o female with history of rheumatoid arthritis, kidney stones, hx , hx cholecystectomy who presents to the ER with 3 days of central abdominal pain and nausea. She states the pain is sharp, constant but has waves of worsening pain. No vomiting, diarrhea, constipation, fever, chills, urinary symptoms. She was due fo her menses 13 days ago and still hasn't gotten it. She took a home test and it was negative. She denies vaginal bleeding or discharge. MD elicited complaint: abdominal pain Pertinent past history: kidney stones Onset (ago): day(s) (3) Pain Consistency: constant Location: periumbilical Severity: moderate Quality: stabbing Radiation: none Migration to: no migration Exacerbating factors: nothing Relieving factors: nothing Associated symptoms: nausea Related Data Home Medications Medication Instructions Recorded Confirmed acetaminophen 650 mg/20.3 mL oral 650 mg PO Q6H PRN 04/21/20 06/13/20 solution albuterol sulfate 90 mcg/actuation 2 puff INHALATION Q6H PRN 04/21/20 06/13/20 aerosol inhaler cyclobenzaprine 10 mg tablet 10 mg PO BEDTIME 04/21/20 06/13/20 diclofenac potassium 50 mg tablet 50 mg PO BID 04/21/20 06/13/20 Previous Rx's Medication Instructions Recorded amoxicillin 500 mg PO Q12H #21 tab 05/04/20 cetirizine 10 mg PO DAILY #30 tab 05/04/20 ciprofloxacin-dexamethasone 4 drp OTIC (EARS) BID 7 Days #7.5 05/04/20 [Ciprodex] ml cholecalciferol (vitamin D3) 25 25 mcg PO DAILY #30 cap 05/16/20 mcg (1,000 unit) capsule prednisone 5 mg tablet See Rx Instructions PO DAILY #50 06/13/20 tab certolizumab pegol 200 mg SUBCUT Q2W #1 ea 06/14/20 certolizumab pegol 400 mg SUBCUT Q2W #1 ea 06/14/20 rvbxirztou-dwmnqtdvdsghr-mxuq 1 cap PO Q6H PRN #10 cap 09/18/20 [Fioricet] ondansetron HCl [Zofran] 4 mg PO Q8H PRN #8 tab 10/08/20 pantoprazole [Protonix] 40 mg PO DAILY #14 tab 10/08/20 sucralfate [Carafate] 1 g PO BID #20 tab 10/08/20 Allergies Allergy/AdvReac Type Severity Reaction Status Date / Time aspirin Allergy Intermediate rash Verified 06/13/20 10:56 Review of Systems Review of Systems Constitutional: No Fever, No Chills ENT/Mouth: No sore throat, No Rhinorrhea, No Swallowing Difficulty Cardiovascular: No Chest Pain, No SOB, No Orthopnea, No Edema Respiratory: No Cough, No Sputum, No Wheezing, No dyspnea Gastrointestinal: + Nausea, No Vomiting, No Diarrhea, + abdominal Pain, No Hematochezia, No Melena Genitourinary: No Dysuria, No Urinary Frequency, No Hematuria Musculoskeletal: No joint pain, No Myalgias Skin: No Skin Lesions, No rash Neuro: No Weakness, No Numbness, No Dizziness, No Headache Heme/Lymph: No Bruising, No Lymphadenopathy Endocrine: No Polyuria, No Polydipsia Physical Exam Vital Signs: Vital Signs: Last Vital Signs Temp 98.5 F 10/08/20 10:32 Pulse 87 10/08/20 10:32 Resp 16 10/08/20 10:32 BP 115/65 10/08/20 10:32 Pulse Ox 99 10/08/20 10:32 Body Mass Index 33.0 Appearance: Alert. Oriented X3. No acute distress. Eyes: Pupils equal, round and reactive to light. ENT: Pharynx normal. Neck: Normal inspection. Neck supple. CVS: Normal heart rate and rhythm. Pulses normal. Respiratory: No respiratory distress. Breath sounds normal. Abdomen: Obese, Soft and nontender. +BS x4. Pelvic exam deferred Skin: Skin warm and dry. Normal skin color. Normal skin turgor. No rashes. Extremities: No lower extremity edema. Neuro: Oriented X 3. No motor deficit. No sensory deficit. Course Course Course Narrative: 25 y/o female presenting with middle/upper abdominal pain x3 days along with nausea. Exam is benign. She is late for her menses. Will check basic lab workup, test and get CT scan for further evaluation. Reevaluation(s) Reevaluation #1: CT, labs and UA are unremarkable. Will treat for possible gastritis with PO protonix and carafate and have her follow up with GI for further evaluation. Stable for d/c home with outpatient follow up. MDM - Abdominal Pain Lab Data Result diagrams: 10/08/20 09:49 10/08/20 09:49 Labs: Lab Results 10/08/20 10/08/20 10/08/20 Range/Units 09:49 09:49 09:49 WBC 6.1 (4.8-10.8) X10*3/uL RBC 4.34 (4.20-5.50) X10*6/uL Hgb 13.0 (12.0-16.0) g/dl Hct 38.6 (37-47) % MCV 88.9 (80-98) fL MCH 30.0 (27.0-33.0) pg MCHC 33.7 (31.0-35.0) g/dl RDW 11.7 (11.0-16.0) % Plt Count 233 (160-400) X10*3/uL MPV 10.2 (9.4-12.3) fL Immature Gran % (Auto) 0.3 (0.0-0.4) % Neut % (Auto) 54.2 (45-73) % Lymph % (Auto) 33.6 (20-40) % [place] % (Auto) 7.7 (2-11) % Eos % (Auto) 3.5 (0-4) % Baso % (Auto) 0.7 (0-2) % Lymph # (Auto) 2.0 (1.2-4.9) X10*3/uL [place] # (Auto) 0.5 (0.1-1.2) X10*3/uL Eos # (Auto) 0.2 (0.0-0.4) X10*3/uL Baso # (Auto) 0.0 (0.0-0.2) X10*3/uL Abs Immat Gran (auto) 0.02 (0.00-0.03) X10*3/uL Absolute Neuts (auto) 3.3 (2.0-8.3) X10*3/uL Absolute Nucleated RBC 0.000 (0.0-0.012) X10*3/uL Nucleated RBC % (auto) 0.0 (0.0-0.2) /100WBC Hold Blue Top SEE NOTE Sodium 139 (135-145) mmol/L Potassium 3.8 (3.3-5.1) mmol/L Chloride 106 (96-108) mmol/L Carbon Dioxide 22 (22-29) mmol/L Anion Gap 15 (12-20) BUN 13 (9-16) mg/dL Creatinine 0.70 (0.5-1.4) mg/dL Estim Creat Clear Calc 115.1 Estimated GFR > 60 Random Glucose 130 H D (60-115) mg/dL Calcium 9.2 (8.4-10.2) mg/dL Magnesium 1.7 (1.6-2.6) mg/dL Total Bilirubin 0.9 (0.0-1.0) mg/dL Direct Bilirubin 0.3 (0.0-0.5) mg/dL AST 21 (5-31) U/L ALT 28 (0-31) U/L Alkaline Phosphatase 72 (39-117) U/L Total Protein 6.9 (6.5-8.0) g/dL Albumin 4.2 (3.5-5.0) g/dL Lipase 17 (8-78) U/L Urine Color Urine Appearance Urine pH (5.0-8.0) Ur Specific Desha (1.005-1.025) Urine Protein (NEG-TRACE) MG/DL Urine Glucose (UA) (NEG) MG/DL Urine Ketones (NEG) MG/DL Urine Blood (NEG) Urine Nitrite (NEG) Ur Leukocyte Esterase (NEG) Urine Test (NEGATIVE) 10/08/20 10/08/20 Range/Units 09:49 09:49 WBC (4.8-10.8) X10*3/uL RBC (4.20-5.50) X10*6/uL Hgb (12.0-16.0) g/dl Hct (37-47) % MCV (80-98) fL MCH (27.0-33.0) pg MCHC (31.0-35.0) g/dl RDW (11.0-16.0) % Plt Count (160-400) X10*3/uL MPV (9.4-12.3) fL Immature Gran % (Auto) (0.0-0.4) % Neut % (Auto) (45-73) % Lymph % (Auto) (20-40) % [place] % (Auto) (2-11) % Eos % (Auto) (0-4) % Baso % (Auto) (0-2) % Lymph # (Auto) (1.2-4.9) X10*3/uL [place] # (Auto) (0.1-1.2) X10*3/uL Eos # (Auto) (0.0-0.4) X10*3/uL Baso # (Auto) (0.0-0.2) X10*3/uL Abs Immat Gran (auto) (0.00-0.03) X10*3/uL Absolute Neuts (auto) (2.0-8.3) X10*3/uL Absolute Nucleated RBC (0.0-0.012) X10*3/uL Nucleated RBC % (auto) (0.0-0.2) /100WBC Hold Blue Top Sodium (135-145) mmol/L Potassium (3.3-5.1) mmol/L Chloride (96-108) mmol/L Carbon Dioxide (22-29) mmol/L Anion Gap (12-20) BUN (9-16) mg/dL Creatinine (0.5-1.4) mg/dL Estim Creat Clear Calc Estimated GFR Random Glucose (60-115) mg/dL Calcium (8.4-10.2) mg/dL Magnesium (1.6-2.6) mg/dL Total Bilirubin (0.0-1.0) mg/dL Direct Bilirubin (0.0-0.5) mg/dL AST (5-31) U/L ALT (0-31) U/L Alkaline Phosphatase (39-117) U/L Total Protein (6.5-8.0) g/dL Albumin (3.5-5.0) g/dL Lipase (8-78) U/L Urine Color YELLOW Urine Appearance HAZY Urine pH 5.5 (5.0-8.0) Ur Specific [place] >= 1.030 H (1.005-1.025) Urine Protein NEG (NEG-TRACE) MG/DL Urine Glucose (UA) NEG (NEG) MG/DL Urine Ketones NEG (NEG) MG/DL Urine Blood NEG (NEG) Urine Nitrite NEG (NEG) Ur Leukocyte Esterase NEG (NEG) Urine Test NEGATIVE (NEGATIVE) Critical Care Time Critical Care Time Critical Care Time: No Discharge Plan Discharge Clinical Impression: Gastritis Qualifiers: Gastritis type: unspecified gastritis Chronicity: acute Gastritis bleeding: without bleeding Qualified Code(s): K29.00 - Acute gastritis without bleeding Patient Disposition: Home, Self-Care Instructions: Gastritis (ED), Abdominal Pain (ED) Additional Instructions: Your lab workup and CT scan were normal today. Recommend trial of prescribed medication to help with possible gastritis. Recommend sticking to a bland diet, no acidic foods. Avoid alcohol and NSAIDs such as Aleve, Motrin and Advil. Recommend following up with GI specialist for further workup. If you develop new or worsening symptoms call 911 or come back to the ER for further evaluation. Walls an?lisis de laboratorio y tomograf?a computarizada fueron normales hoy. Recomendar la prueba de medicaci?n prescrita para ayudar con jeanette posible gastritis. Recomendamos seguir jeanette dieta blanda, sin alimentos ?cidos. Evite el alcohol y los KACEY joe Aleve, Motrin y Advil. Se recomienda realizar un seguimiento con un especialista gastrointestinal para realizar m?s estudios. Si presenta s?ntomas nuevos o que empeoran, llame al 911 o regrese a la sonia de emergencias para jeanette evaluaci?n adicional. Prescriptions: New sucralfate [Carafate] 1 gram tablet 1 g PO BID Qty: 20 RF: 0 ondansetron HCl [Zofran] 4 mg tablet 4 mg PO Q8H PRN (Reason: nausea and vomiting) Qty: 8 RF: 0 pantoprazole [Protonix] 40 mg tablet,delayed release (DR/EC) 40 mg PO DAILY Qty: 14 RF: 0 No Action Cimzia 400 mg/2 mL (200 mg/mL x 2) syringe kit 400 mg subcut Q2W Qty: 1 RF: 0 Cimzia 400 mg/2 mL (200 mg/mL x 2) syringe kit 200 mg subcut Q2W Qty: 1 RF: 3 uprurgplid-qwrvtixbxemep-koqf [Fioricet] 50-300-40 mg capsule 1 cap PO Q6H PRN (Reason: pain) Qty: 10 RF: 0 amoxicillin 500 mg tablet 500 mg PO Q12H Qty: 21 RF: 0 cetirizine 10 mg tablet 10 mg PO DAILY Qty: 30 RF: 0 ciprofloxacin-dexamethasone [Ciprodex] 0.3-0.1 % drops,suspension 4 drp otic (ears) BID 7 Days Qty: 7.5 RF: 0 diclofenac potassium 50 mg tablet 50 mg PO BID RF: 0 acetaminophen 650 mg/20.3 mL solution 650 mg PO Q6H PRNRF: 0 cyclobenzaprine 10 mg tablet 10 mg PO BEDTIME RF: 0 albuterol sulfate 90 mcg/actuation HFA aerosol inhaler 2 puff inhalation Q6H PRNRF: 0 cholecalciferol (vitamin D3) 25 mcg (1,000 unit) capsule 25 mcg PO DAILY Qty: 30 RF: 5 prednisone 5 mg tablet See Rx Instructions PO DAILY Qty: 50 RF: 0 Referrals: Kanika Cruz MD [Physician] - 1 week [facility] Past Medical History Attestation statement: The following information was validated with the patient. Medical History Myofascial pain syndrome Numbness in both hands Polyarthritis Rheumatoid arthritis Surgical History H/O breast biopsy H/O shoulder surgery Hx of section Hx of cholecystectomy Family History Family History Maternal Grandmother Diabetes Father HTN (hypertension) Mother HTN (hypertension) Social History Social History Alcohol intake: never Patient Tobacco Use Status: Never used Tobacco Use of substances other than those prescribed or required for medical reasons: No Advance Directives: Yes Advance Directives Information Provided: Yes Advance Directives on File: No Patient : No
[2020-10-08 10:07] LABS: MANUAL DIFF FLAG NO
[2020-10-08 10:08] LABS: Glucose Urine UA NEG (NEG); Leukocyte Esterase Urine NEG (NEG); Nitrite Urine NEG (NEG); PH 5.5 (5.0-8.0); Specific Gravity - Urine >= 1.030 (1.005-1.025); Urine Blood NEG (NEG); Urine Ketones NEG (NEG); Urine Protein NEG (NEG-TRACE)
[2020-10-08 10:09] LABS: Appearance Urine HAZY; Color Urine YELLOW
[2020-10-08 10:10] LABS: Basophils Percent Auto 0.7 % (0-2); Eosinophils Absolute Auto 0.2 X10*3/uL (0.0-0.4); Eosinophils Percent Auto 3.5 % (0-4); Hematocrit 38.6 % (37-47); Imm Gran Abs Auto 0.02 X10*3/uL (0.00-0.03); Imm Gran Pct Auto 0.3 % (0.0-0.4); Lymphocytes Percent Auto 33.6 % (20-40); Mean Corpuscular HGB Conc 33.7 g/dl (31.0-35.0); Mean Corpuscular Volume 88.9 fL (80-98); Mean Platelet Volume 10.2 fL (9.4-12.3); Monocytes Absolute Auto 0.5 X10*3/uL (0.1-1.2); Monocytes Percent Auto 7.7 % (2-11); Neutrophils Absolute Auto 3.3 X10*3/uL (2.0-8.3); Neutrophils Percent Auto 54.2 % (45-73); Platelet Count 233 X10*3/uL (160-400); Red Blood Count 4.34 X10*6/uL (4.20-5.50); Red Cell Distribution Width 11.7 % (11.0-16.0); UPreg QC Valid YES; Urine Pregnancy NEGATIVE (NEGATIVE); White Blood Count 6.1 X10*3/uL (4.8-10.8)
[2020-10-08 10:30] LABS: Alanine Aminotransferase 28 U/L (0-31); Albumin Level 4.2 g/dL (3.5-5.0); Alkaline Phosphatase 72 U/L (39-117); Anion Gap 15 (12-20); Aspartate Amino Transferase 21 U/L (5-31); Bilirubin Direct 0.3 mg/dL (0.0-0.5); Bilirubin Total 0.9 mg/dL (0.0-1.0); Blood Urea Nitrogen 13 mg/dL (9-16); Calcium 9.2 mg/dL (8.4-10.2); Carbon Dioxide 22 mmol/L (22-29); Chloride 106 mmol/L (96-108); Creatinine Clr Calc Pharmacy 115.1; Estimated Glomerular Filt Rate > 60; Glucose Random 130 mg/dL (60-115); Lipase 17 U/L (8-78); Magnesium 1.7 mg/dL (1.6-2.6); Potassium 3.8 mmol/L (3.3-5.1); Sodium 139 mmol/L (135-145); Total Protein 6.9 g/dL (6.5-8.0)
[2020-10-08 10:32] VITALS: BP 115/65; PULSE 87; RESP 16; TEMP 36.9; O2SAT 99
[2020-10-08] MEDS: ondansetron HCL 4 MG/2 ML VIAL IVPUSH (10:34)
[2020-10-08] MEDS: 0.9 % Sodium Chloride 1,000 ML 999 ML IVCONT (10:34)
[2020-10-08] MEDS: iohexoL 350 MG/ML 100 ML INFUS..BTL IV (11:13)
== END 2020-10-08 12:05 | disposition home or self-care (01) ==
PROVIDERS: Physician Assistant; Emergency Provider Emergency Medicine; PCP Internal Medicine
DX: K29.00 Acute gastritis without bleeding (principal)
CPT/HCPCS: 36415; 74177; 80048; 80076; 81003; 81025; 83690; 83735; 85025; 96361; 96374; 99284; J2405; Q9967

== ENCOUNTER 2020-11-09 19:24 | Emergency (ER) | payer MEDICAID, SELFPAY ==
[2020-11-09 19:40] VITALS: BP 138/76; PULSE 93; RESP 16; TEMP 36.5; O2SAT 97; BMI 34.9
[2020-11-09 20:42] VITALS: BP 130/69; PULSE 89; RESP 16; O2SAT 97
--- NOTE | 2020-11-09 20:55 | ED.GENADULT ---
HPI - General Adult General Chief complaint: General Medical Stated complaint: fall Time Seen by Provider: 11/09/20 20:55 Source: patient Mode of arrival: ambulatory Limitations: no limitations History of Present Illness HPI narrative: Patient with no significant past medical history been feeling dizzy for last 1 week whenever she moves feel like spinning around with slight nausea today she fell because of dizziness and landed on her left knee able to ambulate after the fall no loss of conscious no chest pain no palpitation no prior history of vertigo in the past no headache no history of head injury Related Data Home Medications Medication Instructions Recorded Confirmed acetaminophen 650 mg/20.3 mL oral 650 mg PO Q6H PRN 04/21/20 06/13/20 solution albuterol sulfate 90 mcg/actuation 2 puff INHALATION Q6H PRN 04/21/20 06/13/20 aerosol inhaler cyclobenzaprine 10 mg tablet 10 mg PO BEDTIME 04/21/20 06/13/20 diclofenac potassium 50 mg tablet 50 mg PO BID 04/21/20 06/13/20 Previous Rx's Medication Instructions Recorded amoxicillin 500 mg tablet 500 mg PO Q12H #21 tab 05/04/20 cetirizine 10 mg tablet 10 mg PO DAILY #30 tab 05/04/20 ciprofloxacin 0.3 %-dexamethasone 4 drp OTIC (EARS) BID 7 Days #7.5 05/04/20 0.1 % ear drops,suspension ml (Ciprodex) cholecalciferol (vitamin D3) 25 25 mcg PO DAILY #30 cap 05/16/20 mcg (1,000 unit) capsule prednisone 5 mg tablet See Rx Instructions PO DAILY #50 06/13/20 tab certolizumab pegol (Cimzia) 200 mg SUBCUT Q2W #1 ea 06/14/20 certolizumab pegol (Cimzia) 400 mg SUBCUT Q2W #1 ea 06/14/20 eobfudphlz-uttfsuilczlbn-sodfjtui 1 cap PO Q6H PRN #10 cap 09/18/20 50 mg-300 mg-40 mg capsule (Fioricet) ondansetron HCl 4 mg tablet 4 mg PO Q8H PRN #8 tab 10/08/20 (Zofran) pantoprazole 40 mg tablet,delayed 40 mg PO DAILY #14 tab 10/08/20 release (Protonix) sucralfate 1 gram tablet (Carafate) 1 g PO BID #20 tab 10/08/20 meclizine 25 mg tablet 25 mg PO TID PRN #20 tab 11/09/20 Allergies Allergy/AdvReac Type Severity Reaction Status Date / Time aspirin Allergy Intermediate rash Verified 06/13/20 10:56 Review of Systems Review of Systems: Yes all other systems are reviewed and are negative [facility] Past Medical History Medical History Myofascial pain syndrome Numbness in both hands Polyarthritis Rheumatoid arthritis Surgical History H/O breast biopsy H/O shoulder surgery Hx of section Hx of cholecystectomy Family History Family History Maternal Grandmother Diabetes Father HTN (hypertension) Mother HTN (hypertension) Social History Social History Alcohol intake: never Patient Tobacco Use Status: Never used Tobacco Advance Directives: No Advance Directives Information Provided: No Patient : No Physical Exam Vital Signs: Vital Signs: Last Vital Signs Temp 97.7 F 11/09/20 19:40 Pulse 88 11/09/20 22:24 Resp 16 11/09/20 20:42 BP 117/82 11/09/20 22:24 Pulse Ox 97 11/09/20 20:42 Body Mass Index 34.9 Appearance: Alert. Oriented X3. No acute distress. Eyes: PERRLA, No Nystagmus ENT: Pharynx normal. Oral Mucosa moist Neck: Normal inspection. Neck supple. CVS: Normal heart rate and rhythm. Pulses normal. Respiratory: No respiratory distress. Equal air entry bilateral, no wheezing/rales/rhonchi Abdomen: Soft and nontender. Bowel sounds are present, no mass palpable, no CVA tenderness Skin: Skin warm and dry. Normal skin color. Normal skin turgor. Extremities: No lower extremity edema. No calf tenderness right knee soft tissue tenderness no joint effusion good range of movement ambulatory Neuro: Oriented X 3. No motor deficit. No sensory deficit.No cerebellar signs , cranial nerves II-XII intact Medical Decision Making MDM Narrative Medical decision making narrative: Patient symptoms with benign positional vertigo feels better after meclizine ambulatory in the ER will discharge patient home Discharge Plan Discharge Clinical Impression: Benign paroxysmal positional vertigo Patient Disposition: Home, Self-Care Instructions: Benign Paroxysmal Positional Vertigo (ED) Additional Instructions: Care and cautions as advised Take medication for severe dizziness as prescribed Follow with PCP if not better Cuidados y precauciones seg?n lo recomendado [employer] medicamentos para los mareos intensos seg?n lo prescrito. Siga con russo PCP si no mejora Prescriptions: New meclizine 25 mg tablet 25 mg PO TID PRN (Reason: dizziness) Qty: 20 RF: 0 No Action Cimzia 400 mg/2 mL (200 mg/mL x 2) syringe kit 400 mg subcut Q2W Qty: 1 RF: 0 Cimzia 400 mg/2 mL (200 mg/mL x 2) syringe kit 200 mg subcut Q2W Qty: 1 RF: 3 dqwpagohzm-iigczyissylft-wopi [Fioricet] 50-300-40 mg capsule 1 cap PO Q6H PRN (Reason: pain) Qty: 10 RF: 0 sucralfate [Carafate] 1 gram tablet 1 g PO BID Qty: 20 RF: 0 ondansetron HCl [Zofran] 4 mg tablet 4 mg PO Q8H PRN (Reason: nausea and vomiting) Qty: 8 RF: 0 pantoprazole [Protonix] 40 mg tablet,delayed release (DR/EC) 40 mg PO DAILY Qty: 14 RF: 0 amoxicillin 500 mg tablet 500 mg PO Q12H Qty: 21 RF: 0 cetirizine 10 mg tablet 10 mg PO DAILY Qty: 30 RF: 0 ciprofloxacin-dexamethasone [Ciprodex] 0.3-0.1 % drops,suspension 4 drp otic (ears) BID 7 Days Qty: 7.5 RF: 0 diclofenac potassium 50 mg tablet 50 mg PO BID RF: 0 acetaminophen 650 mg/20.3 mL solution 650 mg PO Q6H PRNRF: 0 cyclobenzaprine 10 mg tablet 10 mg PO BEDTIME RF: 0 albuterol sulfate 90 mcg/actuation HFA aerosol inhaler 2 puff inhalation Q6H PRNRF: 0 cholecalciferol (vitamin D3) 25 mcg (1,000 unit) capsule 25 mcg PO DAILY Qty: 30 RF: 5 prednisone 5 mg tablet See Rx Instructions PO DAILY Qty: 50 RF: 0 Interventions: ED Discharge Assessment Last Done: 11/09/20 22:37 Discharge Date/Time: 11/09/20 22:38 Print Language: Turkmen
[2020-11-09 21:23] VITALS: BP 115/74; PULSE 68
[2020-11-09 21:24] VITALS: BP 105/69; PULSE 83
[2020-11-09 21:25] VITALS: BP 120/82; PULSE 93
[2020-11-09 22:24] VITALS: BP 117/82; PULSE 88
[2020-11-09] MEDS: Meclizine HCl 25 MG TABLET PO (22:30)
== END 2020-11-09 22:38 | disposition home or self-care (01) ==
PROVIDERS: Emergency Provider Internal Medicine; PCP Internal Medicine
DX: H81.13 Benign paroxysmal vertigo, bilateral (principal); Z79.899 Other long term (current) drug therapy
CPT/HCPCS: 99284

== ENCOUNTER 2020-11-23 15:23 | Emergency (ER) | payer MEDICAID, SELFPAY ==
--- NOTE | 2020-11-23 15:37 | PC.NURSE ---
awaiting tap puller for triage. pt vss.
[2020-11-23 15:38] VITALS: BP 131/82; PULSE 102; RESP 18; TEMP 36.7; O2SAT 98; BMI 34.9
[2020-11-23 15:39] LABS: Glucose Urine UA NEG (NEG); Leukocyte Esterase Urine NEG (NEG); Nitrite Urine NEG (NEG); Specific Gravity - Urine >= 1.030 (1.005-1.025); Urine Blood NEG (NEG); Urine Ketones NEG (NEG); Urine Protein TRACE MG/DL (NEG-TRACE)
[2020-11-23 15:41] LABS: Appearance Urine CLEAR; Color Urine YELLOW
[2020-11-23 16:01] LABS: Bacteria Urine TRACE /LPF; Mucus Urine TRACE /LPF; RBC Urine 0-2 /HPF (0); Squamous Epithelial Cell Urine 1+ /LPF; UPreg QC Valid YES; Urine Pregnancy NEGATIVE (NEGATIVE); WBC Urine 0 /HPF (0-4)
[2020-11-23 20:12] LABS: MANUAL DIFF FLAG NO
[2020-11-23 20:13] LABS: Basophils Percent Auto 0.3 % (0-2); Eosinophils Absolute Auto 0.2 X10*3/uL (0.0-0.4); Eosinophils Percent Auto 2.2 % (0-4); Hemoglobin 12.9 g/dl (12.0-16.0); Imm Gran Abs Auto 0.02 X10*3/uL (0.00-0.03); Imm Gran Pct Auto 0.2 % (0.0-0.4); Lymphocytes Absolute Auto 3.1 X10*3/uL (1.2-4.9); Lymphocytes Percent Auto 33.7 % (20-40); Mean Corpuscular HGB Conc 33.1 g/dl (31.0-35.0); Mean Corpuscular Hemoglobin 29.2 pg (27.0-33.0); Mean Corpuscular Volume 88.2 fL (80-98); Mean Platelet Volume 9.6 fL (9.4-12.3); Monocytes Absolute Auto 0.8 X10*3/uL (0.1-1.2); Monocytes Percent Auto 8.2 % (2-11); Neutrophils Percent Auto 55.4 % (45-73); Platelet Count 245 X10*3/uL (160-400); Red Blood Count 4.42 X10*6/uL (4.20-5.50); Red Cell Distribution Width 12.6 % (11.0-16.0); White Blood Count 9.1 X10*3/uL (4.8-10.8)
[2020-11-23 20:33] LABS: Alanine Aminotransferase 22 U/L (0-31); Albumin Level 4.3 g/dL (3.5-5.0); Alkaline Phosphatase 76 U/L (39-117); Anion Gap 13 (12-20); Aspartate Amino Transferase 16 U/L (5-31); Bilirubin Direct 0.4 mg/dL (0.0-0.5); Blood Urea Nitrogen 13 mg/dL (9-16); Calcium 9.2 mg/dL (8.4-10.2); Carbon Dioxide 20 mmol/L (22-29); Chloride 109 mmol/L (96-108); Creatinine Clr Calc Pharmacy 103.8; Estimated Glomerular Filt Rate > 60; Glucose Random 111 mg/dL (60-115); Lipase 20 U/L (8-78); Potassium 3.8 mmol/L (3.3-5.1); Sodium 138 mmol/L (135-145); Total Protein 7.2 g/dL (6.5-8.0)
--- NOTE | 2020-11-23 21:47 | ED_ITS ---
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 She also has some concerns that her home test x2 was negative and then positive. LMP-10/20 and currently sexually active without vaginal discharge. Related Data Home Medications Medication Instructions Recorded Confirmed acetaminophen 650 mg/20.3 mL oral 650 mg PO Q6H PRN 04/21/20 06/13/20 solution albuterol sulfate 90 mcg/actuation 2 puff INHALATION Q6H PRN 04/21/20 06/13/20 aerosol inhaler cyclobenzaprine 10 mg tablet 10 mg PO BEDTIME 04/21/20 06/13/20 diclofenac potassium 50 mg tablet 50 mg PO BID 04/21/20 06/13/20 Previous Rx's Medication Instructions Recorded amoxicillin 500 mg tablet 500 mg PO Q12H #21 tab 05/04/20 cetirizine 10 mg tablet 10 mg PO DAILY #30 tab 05/04/20 ciprofloxacin 0.3 %-dexamethasone 4 drp OTIC (EARS) BID 7 Days #7.5 05/04/20 0.1 % ear drops,suspension ml (Ciprodex) cholecalciferol (vitamin D3) 25 25 mcg PO DAILY #30 cap 05/16/20 mcg (1,000 unit) capsule prednisone 5 mg tablet See Rx Instructions PO DAILY #50 06/13/20 tab certolizumab pegol (Cimzia) 200 mg SUBCUT Q2W #1 ea 06/14/20 certolizumab pegol (Cimzia) 400 mg SUBCUT Q2W #1 ea 06/14/20 bnpjwqwoja-menrfdgqzvlsx-vqqqsubs 1 cap PO Q6H PRN #10 cap 09/18/20 50 mg-300 mg-40 mg capsule (Fioricet) ondansetron HCl 4 mg tablet 4 mg PO Q8H PRN #8 tab 10/08/20 (Zofran) pantoprazole 40 mg tablet,delayed 40 mg PO DAILY #14 tab 10/08/20 release (Protonix) sucralfate 1 gram tablet (Carafate) 1 g PO BID #20 tab 10/08/20 meclizine 25 mg tablet 25 mg PO TID PRN #20 tab 11/09/20 Allergies Allergy/AdvReac Type Severity Reaction Status Date / Time aspirin Allergy Intermediate rash Verified 06/13/20 10:56 Review of Systems Review of Systems Pertinent positives and negatives as stated in the HPI 10 point review of systems is otherwise negative. Physical Exam Vital Signs: Vital Signs: Last Vital Signs Temp 98.1 F 11/23/20 15:38 Pulse 102 H 11/23/20 15:38 Resp 18 11/23/20 15:38 BP 131/82 11/23/20 15:38 Pulse Ox 98 11/23/20 15:38 Body Mass Index 34.9 VITAL SIGNS: Reviewed. GENERAL: Well developed, well nourished, in no acute distress. HEAD: Normocephalic/atraumatic EYES: PERRLA, EOMI EARS: Ext canals without abnormality, TMs non-bulging and non-erythematous NOSE: Nares patent bilateral OROPHARYNX: no oral lesions noted, posterior pharynx clear and non-erythematous without noted tonsillar enlargement/erythema/exudates NECK: Supple, no adenopathy LUNGS: Normal breath sounds. No adventitious sounds or accessory muscle use. SpO2<98> CARDIOVASCULAR: Regular rate and rhythm without noted murmurs ABDOMEN: Soft, non-tender, non-distended with bowel sounds. SKIN: Inspection of the skin reveals no rashes NEUROLOGIC: Alert and oriented x 4. Course Course Course Narrative: This is a 25-year-old female with history and clinical presentation consistent with possible menstrual cramping or possible lower back pain with radiation into the anterior abdomen as there is no evidence to suggest cholecystitis/renal colic/appendicitis and review of all investigations is otherwise negative for acute findings that would suggest UTI or . Low clinical suspicion for ovarian torsion given the nature and clinically comfortable state of the patient and the duration of the pain that she has been experiencing. MDM - Abdominal Pain Lab Data Result diagrams: 11/23/20 20:07 11/23/20 20:07 Labs: Lab Results 11/23/20 11/23/20 11/23/20 Range/Units 15:31 15:31 20:07 WBC 9.1 (4.8-10.8) X10*3/uL RBC 4.42 (4.20-5.50) X10*6/uL Hgb 12.9 (12.0-16.0) g/dl Hct 39.0 (37-47) % MCV 88.2 (80-98) fL MCH 29.2 (27.0-33.0) pg MCHC 33.1 (31.0-35.0) g/dl RDW 12.6 (11.0-16.0) % Plt Count 245 (160-400) X10*3/uL MPV 9.6 (9.4-12.3) fL Immature Gran % (Auto) 0.2 (0.0-0.4) % Neut % (Auto) 55.4 (45-73) % Lymph % (Auto) 33.7 (20-40) % Banner % (Auto) 8.2 (2-11) % Eos % (Auto) 2.2 (0-4) % Baso % (Auto) 0.3 (0-2) % Lymph # (Auto) 3.1 (1.2-4.9) X10*3/uL Banner # (Auto) 0.8 (0.1-1.2) X10*3/uL Eos # (Auto) 0.2 (0.0-0.4) X10*3/uL Baso # (Auto) 0.0 (0.0-0.2) X10*3/uL Abs Immat Gran (auto) 0.02 (0.00-0.03) X10*3/uL Absolute Neuts (auto) 5.0 (2.0-8.3) X10*3/uL Absolute Nucleated RBC 0.000 (0.0-0.012) X10*3/uL Nucleated RBC % (auto) 0.0 (0.0-0.2) /100WBC Sodium (135-145) mmol/L Potassium (3.3-5.1) mmol/L Chloride (96-108) mmol/L Carbon Dioxide (22-29) mmol/L Anion Gap (12-20) BUN (9-16) mg/dL Creatinine (0.5-1.4) mg/dL Estim Creat Clear Calc Estimated GFR Random Glucose (60-115) mg/dL Calcium (8.4-10.2) mg/dL Total Bilirubin (0.0-1.0) mg/dL Direct Bilirubin (0.0-0.5) mg/dL AST (5-31) U/L ALT (0-31) U/L Alkaline Phosphatase (39-117) U/L Total Protein (6.5-8.0) g/dL Albumin (3.5-5.0) g/dL Lipase (8-78) U/L Urine Color YELLOW Urine Appearance CLEAR Urine pH 6.0 (5.0-8.0) Ur Specific [place] >= 1.030 H (1.005-1.025) Urine Protein TRACE (NEG-TRACE) MG/DL Urine Glucose (UA) NEG (NEG) MG/DL Urine Ketones NEG (NEG) MG/DL Urine Blood NEG (NEG) Urine Nitrite NEG (NEG) Ur Leukocyte Esterase NEG (NEG) Urine RBC 0-2 (0) /HPF Urine WBC 0 (0-4) /HPF Ur Squamous Epith Cells 1+ /LPF Urine Bacteria TRACE /LPF Urine Mucus TRACE /LPF Urine Test NEGATIVE (NEGATIVE) 11/23/20 Range/Units 20:07 WBC (4.8-10.8) X10*3/uL RBC (4.20-5.50) X10*6/uL Hgb (12.0-16.0) g/dl Hct (37-47) % MCV (80-98) fL MCH (27.0-33.0) pg MCHC (31.0-35.0) g/dl RDW (11.0-16.0) % Plt Count (160-400) X10*3/uL MPV (9.4-12.3) fL Immature Gran % (Auto) (0.0-0.4) % Neut % (Auto) (45-73) % Lymph % (Auto) (20-40) % Banner % (Auto) (2-11) % Eos % (Auto) (0-4) % Baso % (Auto) (0-2) % Lymph # (Auto) (1.2-4.9) X10*3/uL Banner # (Auto) (0.1-1.2) X10*3/uL Eos # (Auto) (0.0-0.4) X10*3/uL Baso # (Auto) (0.0-0.2) X10*3/uL Abs Immat Gran (auto) (0.00-0.03) X10*3/uL Absolute Neuts (auto) (2.0-8.3) X10*3/uL Absolute Nucleated RBC (0.0-0.012) X10*3/uL Nucleated RBC % (auto) (0.0-0.2) /100WBC Sodium 138 (135-145) mmol/L Potassium 3.8 (3.3-5.1) mmol/L Chloride 109 H (96-108) mmol/L Carbon Dioxide 20 L (22-29) mmol/L Anion Gap 13 (12-20) BUN 13 (9-16) mg/dL Creatinine 0.80 (0.5-1.4) mg/dL Estim Creat Clear Calc 103.8 Estimated GFR > 60 Random Glucose 111 (60-115) mg/dL Calcium 9.2 (8.4-10.2) mg/dL Total Bilirubin 1.0 (0.0-1.0) mg/dL Direct Bilirubin 0.4 (0.0-0.5) mg/dL AST 16 (5-31) U/L ALT 22 (0-31) U/L Alkaline Phosphatase 76 (39-117) U/L Total Protein 7.2 (6.5-8.0) g/dL Albumin 4.3 (3.5-5.0) g/dL Lipase 20 (8-78) U/L Urine Color Urine Appearance Urine pH (5.0-8.0) Ur Specific [place] (1.005-1.025) Urine Protein (NEG-TRACE) MG/DL Urine Glucose (UA) (NEG) MG/DL Urine Ketones (NEG) MG/DL Urine Blood (NEG) Urine Nitrite (NEG) Ur Leukocyte Esterase (NEG) Urine RBC (0) /HPF Urine WBC (0-4) /HPF Ur Squamous Epith Cells /LPF Urine Bacteria /LPF Urine Mucus /LPF Urine Test (NEGATIVE) Discharge Plan Discharge Clinical Impression: Menstrual pain, Back pain Patient Disposition: Home, Self-Care Instructions: Dysmenorrhea (ED), Back Pain (ED) Additional Instructions: 1. Tylenol 1000 mg, por v?a oral, cada 6 horas seg?n sea necesario para controlar el dolor. No exceda los 4000 mg en 24 horas. 2. Ibuprofeno 400 mg, por v?a oral con leche o alimentos, cada 6 horas seg?n sea necesario para controlar el dolor. 3. Realice un seguimiento con russo proveedor de atenci?n primaria en los pr?ximos 2-3 d?as para jeanette reevaluaci?n y un tratamiento ambulatorio adicional. Regrese a la sonia de emergencias si hiram s?ntomas empeoran de manera aguda. Prescriptions: No Action Cimzia 400 mg/2 mL (200 mg/mL x 2) syringe kit 400 mg subcut Q2W Qty: 1 RF: 0 Cimzia 400 mg/2 mL (200 mg/mL x 2) syringe kit 200 mg subcut Q2W Qty: 1 RF: 3 simcntcion-hskybulzxjyyi-macs [Fioricet] 50-300-40 mg capsule 1 cap PO Q6H PRN (Reason: pain) Qty: 10 RF: 0 sucralfate [Carafate] 1 gram tablet 1 g PO BID Qty: 20 RF: 0 ondansetron HCl [Zofran] 4 mg tablet 4 mg PO Q8H PRN (Reason: nausea and vomiting) Qty: 8 RF: 0 pantoprazole [Protonix] 40 mg tablet,delayed release (DR/EC) 40 mg PO DAILY Qty: 14 RF: 0 meclizine 25 mg tablet 25 mg PO TID PRN (Reason: dizziness) Qty: 20 RF: 0 amoxicillin 500 mg tablet 500 mg PO Q12H Qty: 21 RF: 0 cetirizine 10 mg tablet 10 mg PO DAILY Qty: 30 RF: 0 ciprofloxacin-dexamethasone [Ciprodex] 0.3-0.1 % drops,suspension 4 drp otic (ears) BID 7 Days Qty: 7.5 RF: 0 diclofenac potassium 50 mg tablet 50 mg PO BID RF: 0 acetaminophen 650 mg/20.3 mL solution 650 mg PO Q6H PRNRF: 0 cyclobenzaprine 10 mg tablet 10 mg PO BEDTIME RF: 0 albuterol sulfate 90 mcg/actuation HFA aerosol inhaler 2 puff inhalation Q6H PRNRF: 0 cholecalciferol (vitamin D3) 25 mcg (1,000 unit) capsule 25 mcg PO DAILY Qty: 30 RF: 5 prednisone 5 mg tablet See Rx Instructions PO DAILY Qty: 50 RF: 0 Referrals: Marzena Strong MD [Primary Care Provider] - 2 days Print Language: Mozambican [facility] Past Medical History Source: nursing notes reviewed Medical History Asthma Myofascial pain syndrome Numbness in both hands Polyarthritis Rheumatoid arthritis Surgical History H/O breast biopsy H/O shoulder surgery Hx of section Hx of cholecystectomy Family History Family History Maternal Grandmother Diabetes Father HTN (hypertension) Mother HTN (hypertension) Social History Social History Alcohol intake: never Patient Tobacco Use Status: Never used Tobacco Advance Directives: No Advance Directives Information Provided: No
== END 2020-11-23 22:03 | disposition home or self-care (01) ==
PROVIDERS: Emergency Provider Student in an Organized Health Care Education/Training Program; PCP Internal Medicine
DX: N94.6 Dysmenorrhea, unspecified (principal); M54.5 Low back pain
CPT/HCPCS: 36415; 80053; 81001; 81025; 82248; 83690; 85025; 99283

== ENCOUNTER 2020-12-17 11:13 | Emergency (ER) | payer MEDICAID, SELFPAY ==
--- NOTE | ~2020-12-17 | US_ITS ---
EXAMINATION: US PELVIS CLINICAL INFORMATION: Right adnexal pain COMPARISON: None TECHNIQUE: Ultrasound of the pelvis is performed using both transabdominal and transvaginal transducers along with Doppler. Transvaginal imaging is performed due to inadequate visualization transabdominally. FINDINGS: Uterus: The uterus is anteverted and measures 7.6 x 4.2 x 5 cm. Slightly hyperechoic focus in the right uterine myometrium measuring 1 x 1.2 x 1.2 cm, probable fibroid. Endometrial thickness 1 cm. Nabothian cysts in the cervix. Small fluid in the cervical endometrial canal. Right ovary measures 3 x 2.5 x 3 cm, volume 11.8 cc. There is a 2.1 cm simple appearing cyst. Left ovary measures 2.3 x 1.7 x 1.8 cm, volume 2.7 cc. Ovarian cyst present. There is normal color and Doppler flow to bilateral kidneys. No significant pelvic free fluid. US/US pelvic and transvaginal IMPRESSION: 1. 1.2 cm hypoechoic focus in the right uterine myometrium, probable fibroid. 2. Simple appearing right ovarian 2.1 cm cyst. Bilateral ovaries appear unremarkable. There is vascular flow noted to bilateral ovaries.
--- NOTE | ~2020-12-17 | US_ITS ---
EXAMINATION: US PELVIS CLINICAL INFORMATION: Right adnexal pain COMPARISON: None TECHNIQUE: Ultrasound of the pelvis is performed using both transabdominal and transvaginal transducers along with Doppler. Transvaginal imaging is performed due to inadequate visualization transabdominally. FINDINGS: Uterus: The uterus is anteverted and measures 7.6 x 4.2 x 5 cm. Slightly hyperechoic focus in the right uterine myometrium measuring 1 x 1.2 x 1.2 cm, probable fibroid. Endometrial thickness 1 cm. Nabothian cysts in the cervix. Small fluid in the cervical endometrial canal. Right ovary measures 3 x 2.5 x 3 cm, volume 11.8 cc. There is a 2.1 cm simple appearing cyst. Left ovary measures 2.3 x 1.7 x 1.8 cm, volume 2.7 cc. Ovarian cyst present. There is normal color and Doppler flow to bilateral kidneys. No significant pelvic free fluid. US/US pelvic ovarian doppler IMPRESSION: 1. 1.2 cm hypoechoic focus in the right uterine myometrium, probable fibroid. 2. Simple appearing right ovarian 2.1 cm cyst. Bilateral ovaries appear unremarkable. There is vascular flow noted to bilateral ovaries.
[2020-12-17 11:17] VITALS: BP 127/81; PULSE 90; RESP 18; TEMP 36.4; O2SAT 97; BMI 35.9
--- NOTE | 2020-12-17 11:41 | ED_ITS ---
HPI - Abdominal Pain General Chief Complaint: Abdominal Pain Stated Complaint: ABD PAIN Time Seen by Provider: 12/17/20 11:41 Source: patient Mode of arrival: ambulatory Limitations: language barrier History of Present Illness HPI narrative: 25 year old female presents for right lower abdominal or pelvic pain radiating into her right groin that started yesterday. The pain is stabbing and 9/10. She has mild radiation to her back. She has been nauseous. Her last menstrual period was November 25. She is sexually active. She has had diarrhea 3 times between yesterday and today. Nothing dark, tarry, or bloody in her stools. No fevers, no vaginal discharge, no vomiting. No dysuria, no hematuria, no urinary frequency or urgency. Patient does not drink alcohol is not a smoker. Patient is treated for rheumatoid arthritis on a tumor necrosis factor yolette (certolizumab). Patient's only abdominal surgery was cholecystectomy. No recent antibiotic use, no foods that have gone bad, no recent travel, no un usual water sources. Nursing note states epigastric pain, the patient's pain is really more right p elvic pain. Related Data Home Medications Medication Instructions Recorded Confirmed acetaminophen 650 mg/20.3 mL oral 650 mg PO Q6H PRN 04/21/20 06/13/20 solution albuterol sulfate 90 mcg/actuation 2 puff INHALATION Q6H PRN 04/21/20 06/13/20 aerosol inhaler cyclobenzaprine 10 mg tablet 10 mg PO BEDTIME 04/21/20 06/13/20 diclofenac potassium 50 mg tablet 50 mg PO BID 04/21/20 06/13/20 Previous Rx's Medication Instructions Recorded amoxicillin 500 mg tablet 500 mg PO Q12H #21 tab 05/04/20 cetirizine 10 mg tablet 10 mg PO DAILY #30 tab 05/04/20 ciprofloxacin 0.3 %-dexamethasone 4 drp OTIC (EARS) BID 7 Days #7.5 05/04/20 0.1 % ear drops,suspension ml (Ciprodex) cholecalciferol (vitamin D3) 25 25 mcg PO DAILY #30 cap 05/16/20 mcg (1,000 unit) capsule prednisone 5 mg tablet See Rx Instructions PO DAILY #50 06/13/20 tab certolizumab pegol (Cimzia) 200 mg SUBCUT Q2W #1 ea 06/14/20 certolizumab pegol (Cimzia) 400 mg SUBCUT Q2W #1 ea 06/14/20 tuiqthsllq-oljnlcsgkdeoz-ilerydnu 1 cap PO Q6H PRN #10 cap 09/18/20 50 mg-300 mg-40 mg capsule (Fioricet) ondansetron HCl 4 mg tablet 4 mg PO Q8H PRN #8 tab 10/08/20 (Zofran) pantoprazole 40 mg tablet,delayed 40 mg PO DAILY #14 tab 10/08/20 release (Protonix) sucralfate 1 gram tablet (Carafate) 1 g PO BID #20 tab 10/08/20 meclizine 25 mg tablet 25 mg PO TID PRN #20 tab 11/09/20 ketorolac 10 mg tablet 10 mg PO Q6H PRN 3 Days #12 tab 12/17/20 metronidazole 500 mg tablet 500 mg PO BID 5 Days #10 tab 12/17/20 Allergies Allergy/AdvReac Type Severity Reaction Status Date / Time aspirin Allergy Intermediate rash Verified 06/13/20 10:56 Review of Systems Constitutional: Denies body ache(s), Denies chills, Denies fatigue, Denies fever(s), Denies headache(s) and Denies malaise Eyes: Denies diplopia Denies dizziness, Denies otalgia, Denies headache(s), Denies post nasal drip, Reports sinus pain and Denies sore throat Cardiovascular: Denies chest pain, Denies syncope, Denies leg edema, Denies lightheadedness, Denies palpitations and Denies dyspnea Respiratory: Denies chest congestion, Denies cough and Denies dyspnea Gastrointestinal: Reports abdominal pain, Denies melena, Denies hematochezia, Denies constipation, Reports diarrhea and Denies vomiting Genitourinary: Denies dyspareunia, Denies dysuria, Reports pelvic pain, Denies flank pain, Denies urinary urgency, Denies vaginal discharge, Denies vaginal odor and Denies vaginal pruritus Comments: Right pelvic pain radiating into patient's groin. Patient's right groin as painful making it hard to move her leg Skin/Breast: Denies erythema and Denies rash Denies confusion, Denies dizziness, Denies syncope and Denies headache(s) Psychiatric: Denies anxiety, Denies confusion and Denies depression Endocrine: Denies fatigue and Denies palpitations Physical Exam Vital Signs: Vital Signs: Last Vital Signs Temp 97.9 F 12/17/20 14:48 Pulse 77 12/17/20 14:48 Resp 16 12/17/20 14:48 BP 128/80 12/17/20 14:48 Pulse Ox 100 12/17/20 14:48 Body Mass Index 35.9 Const: General: alert and awake; No confusion Nutritional Appearance: obese centrally obese Orientation/consciousness: patient oriented x3 and No confusion Limitations: no limitations HENMT: Head: Yes normal to inspection, Yes normocephalic and Yes atraumatic Ears: hearing grossly normal bilaterally, external ears normal, TM's normal bilaterally and EAC's normal General nose exam: Normal external nose present Eyes: Conjunctivae: conjunctivae normal Pupils: Equal, round and reactive pupils present EOM: EOMs intact bilaterally Neck: Neck: Yes full ROM, Yes no lymphadenopathy and Yes supple Resp: Effort & Inspection: normal respiratory effort and able to speak in complete sentences Auscultation: clear to auscultation bilaterally, no crackles, no rales, no rhonchi and no wheezes Cardio: Rate: regular rate Rhythm: regular rhythm Heart sounds: S1 normal heart sound present and S2 normal heart sound present GI: Inspection: Yes obesity Palpation (GI): Soft to palpation, nontender, no guarding and not rigid Percussion: Yes normal to percussion Auscultation: normal bowel sounds : General: Yes no CVA tenderness External Female Exam: normal external appearance, No erythema, No externally tender and No external swelling Speculum Exam - Vagina: normal appearance of the vagina, abnormal vaginal discharge white, not erythematous, no lesions and tenderness bilaterally Speculum Exam - Cervix: normal appearance of the cervix, Abnormal cervical discharge present white and Cervical tenderness present Bimanual exam- vagina & uterus: Cervical tenderness present Bimanual Exam- Adnexa, other: tender on the right Back/Spine/Pelvis: Back: no CVA tenderness Skin: General skin exam: no rashes or lesions noted Neuro: General: patient oriented x3 and No confusion Cranial nerves: Yes Equal, round and reactive pupils present Extrem: General: Yes normal to inspection and Yes full ROM Psych: Appearance: grossly normal Affect: normal affect Attitude: cooperative Thought process: Normal thought process present Course Course Course Narrative: A 25-year-old female presents with right lower pelvic pain and diarrhea that started yesterday. Pain radiates into her right groin. Back but no CVA tenderness. On exam, patient is afebrile with normal vitals, patient has a soft abdomen mildly tender right lower quadrant, exquisitely tender below her a CIS in her pelvic region when I press. Will do pelvic exam, get STD swabs, and determine after pelvic exam if ultrasound versus CT abdomen is indicated. Gave Zofran, morphine, fluids. Pelvic exam shows mild cervical motion tenderness, and right adnexal tenderness. White cervical discharge. Patient was tender with speculum insertion. Labs were unremarkable, urine negative, patient is not . Ultrasound shows small right uterine fibroid, and 2 cm right ovarian cyst with vascular flow that is not ruptured. Patient's gonorrhea and chlamydia with negative, Trichomonas negative, yeast negative. Awaiting BV result. Called lab, and BV will not return until tomorrow. Patient did cervical motion tenderness and white discharge, will treat with Flagyl. Will treat ovarian cyst pain with ketorolac. MDM - Abdominal Pain Lab Data Result diagrams: 12/17/20 13:07 12/17/20 13:07 Labs: Lab Results 12/17/20 12/17/20 12/17/20 Range/Units 13:07 13:07 13:07 WBC 9.2 (4.8-10.8) X10*3/uL RBC 4.11 L (4.20-5.50) X10*6/uL Hgb 11.9 L (12.0-16.0) g/dl Hct 36.5 L (37-47) % MCV 88.8 (80-98) fL MCH 29.0 (27.0-33.0) pg MCHC 32.6 (31.0-35.0) g/dl RDW 12.7 (11.0-16.0) % Plt Count 221 (160-400) X10*3/uL MPV 10.0 (9.4-12.3) fL Immature Gran % (Auto) 0.2 (0.0-0.4) % Neut % (Auto) 62.2 (45-73) % Lymph % (Auto) 26.6 (20-40) % [place] % (Auto) 9.1 (2-11) % Eos % (Auto) 1.5 (0-4) % Baso % (Auto) 0.4 (0-2) % Lymph # (Auto) 2.4 (1.2-4.9) X10*3/uL [place] # (Auto) 0.8 (0.1-1.2) X10*3/uL Eos # (Auto) 0.1 (0.0-0.4) X10*3/uL Baso # (Auto) 0.0 (0.0-0.2) X10*3/uL Abs Immat Gran (auto) 0.02 (0.00-0.03) X10*3/uL Absolute Neuts (auto) 5.7 (2.0-8.3) X10*3/uL Absolute Nucleated RBC 0.000 (0.0-0.012) X10*3/uL Nucleated RBC % (auto) 0.0 (0.0-0.2) /100WBC Sodium 140 (135-145) mmol/L Potassium 3.8 (3.3-5.1) mmol/L Chloride 105 (96-108) mmol/L Carbon Dioxide 27 (22-29) mmol/L Anion Gap 12 (12-20) BUN 9 (9-16) mg/dL Creatinine 0.78 (0.5-1.4) mg/dL Estim Creat Clear Calc 108.0 Estimated GFR > 60 Random Glucose 85 (60-115) mg/dL Calcium 9.1 (8.4-10.2) mg/dL Total Bilirubin 1.3 H (0.0-1.0) mg/dL Direct Bilirubin 0.4 (0.0-0.5) mg/dL AST 20 (5-31) U/L ALT 24 (0-31) U/L Alkaline Phosphatase 73 (39-117) U/L Total Protein 6.4 L (6.5-8.0) g/dL Albumin 3.9 (3.5-5.0) g/dL Lipase 16 (8-78) U/L Urine Color YELLOW Urine Appearance CLEAR Urine pH 6.0 (5.0-8.0) Ur Specific [place] 1.025 (1.005-1.025) Urine Protein NEG (NEG-TRACE) MG/DL Urine Glucose (UA) NEG (NEG) MG/DL Urine Ketones NEG (NEG) MG/DL Urine Blood NEG (NEG) Urine Nitrite NEG (NEG) Ur Leukocyte Esterase NEG (NEG) Urine Test (NEGATIVE) Chlam trachomat DNA PCR (Not Detect.) N.gonorrhoeae DNA (PCR) (Not Detect.) 12/17/20 12/17/20 Range/Units 13:07 13:31 WBC (4.8-10.8) X10*3/uL RBC (4.20-5.50) X10*6/uL Hgb (12.0-16.0) g/dl Hct (37-47) % MCV (80-98) fL MCH (27.0-33.0) pg MCHC (31.0-35.0) g/dl RDW (11.0-16.0) % Plt Count (160-400) X10*3/uL MPV (9.4-12.3) fL Immature Gran % (Auto) (0.0-0.4) % Neut % (Auto) (45-73) % Lymph % (Auto) (20-40) % [place] % (Auto) (2-11) % Eos % (Auto) (0-4) % Baso % (Auto) (0-2) % Lymph # (Auto) (1.2-4.9) X10*3/uL [place] # (Auto) (0.1-1.2) X10*3/uL Eos # (Auto) (0.0-0.4) X10*3/uL Baso # (Auto) (0.0-0.2) X10*3/uL Abs Immat Gran (auto) (0.00-0.03) X10*3/uL Absolute Neuts (auto) (2.0-8.3) X10*3/uL Absolute Nucleated RBC (0.0-0.012) X10*3/uL Nucleated RBC % (auto) (0.0-0.2) /100WBC Sodium (135-145) mmol/L Potassium (3.3-5.1) mmol/L Chloride (96-108) mmol/L Carbon Dioxide (22-29) mmol/L Anion Gap (12-20) BUN (9-16) mg/dL Creatinine (0.5-1.4) mg/dL Estim Creat Clear Calc Estimated GFR Random Glucose (60-115) mg/dL Calcium (8.4-10.2) mg/dL Total Bilirubin (0.0-1.0) mg/dL Direct Bilirubin (0.0-0.5) mg/dL AST (5-31) U/L ALT (0-31) U/L Alkaline Phosphatase (39-117) U/L Total Protein (6.5-8.0) g/dL Albumin (3.5-5.0) g/dL Lipase (8-78) U/L Urine Color Urine Appearance Urine pH (5.0-8.0) Ur Specific [place] (1.005-1.025) Urine Protein (NEG-TRACE) MG/DL Urine Glucose (UA) (NEG) MG/DL Urine Ketones (NEG) MG/DL Urine Blood (NEG) Urine Nitrite (NEG) Ur Leukocyte Esterase (NEG) Urine Test NEGATIVE (NEGATIVE) Chlam trachomat DNA PCR NOT DETECTED (Not Detect.) N.gonorrhoeae DNA (PCR) NOT DETECTED (Not Detect.) Discharge Plan Discharge Clinical Impression: Bacterial vaginosis Ovarian cyst Qualifiers: Laterality: right Qualified Code(s): N83.201 - Unspecified ovarian cyst, right side Patient Disposition: Home, Self-Care Instructions: Bacterial Vaginosis (ED), Ovarian Cyst (ED) Additional Instructions: Please fill your prescriptions and take them both for the next 5 days. Stop all ibuprofen containing prescriptions or [id number]-[id number] medications. Do not take your diclofenac. call your primary care provider for follow-up appointment on Friday. Please return to emergency room if you have worsening abdominal pain, fevers, or any other new or concerning symptoms Surta hiram recetas y t?melas ambas mikki los pr?ximos 5 d?as. Llame a russo proveedor de atenci?n primaria para jeanette anisha de seguimiento el susan. Regrese a la sonia de emergencias si tiene un dolor abdominal que empeora, fiebre o cualquier otro s?ntoma nuevo o preocupante Suspenda todos los medicamentos recetados o de venta fercho que contengan ibuprofeno. No tomes tu diclofenac. Prescriptions: New ketorolac 10 mg tablet 10 mg PO Q6H PRN (Reason: pain) 3 Days Qty: 12 RF: 0 metronidazole 500 mg tablet 500 mg PO BID 5 Days Qty: 10 RF: 0 No Action Cimzia 400 mg/2 mL (200 mg/mL x 2) syringe kit 400 mg subcut Q2W Qty: 1 RF: 0 Cimzia 400 mg/2 mL (200 mg/mL x 2) syringe kit 200 mg subcut Q2W Qty: 1 RF: 3 tstquokslp-yabvadoqkvfbk-abqj [Fioricet] 50-300-40 mg capsule 1 cap PO Q6H PRN (Reason: pain) Qty: 10 RF: 0 sucralfate [Carafate] 1 gram tablet 1 g PO BID Qty: 20 RF: 0 ondansetron HCl [Zofran] 4 mg tablet 4 mg PO Q8H PRN (Reason: nausea and vomiting) Qty: 8 RF: 0 pantoprazole [Protonix] 40 mg tablet,delayed release (DR/EC) 40 mg PO DAILY Qty: 14 RF: 0 meclizine 25 mg tablet 25 mg PO TID PRN (Reason: dizziness) Qty: 20 RF: 0 amoxicillin 500 mg tablet 500 mg PO Q12H Qty: 21 RF: 0 cetirizine 10 mg tablet 10 mg PO DAILY Qty: 30 RF: 0 ciprofloxacin-dexamethasone [Ciprodex] 0.3-0.1 % drops,suspension 4 drp otic (ears) BID 7 Days Qty: 7.5 RF: 0 diclofenac potassium 50 mg tablet 50 mg PO BID RF: 0 acetaminophen 650 mg/20.3 mL solution 650 mg PO Q6H PRNRF: 0 cyclobenzaprine 10 mg tablet 10 mg PO BEDTIME RF: 0 albuterol sulfate 90 mcg/actuation HFA aerosol inhaler 2 puff inhalation Q6H PRNRF: 0 cholecalciferol (vitamin D3) 25 mcg (1,000 unit) capsule 25 mcg PO DAILY Qty: 30 RF: 5 prednisone 5 mg tablet See Rx Instructions PO DAILY Qty: 50 RF: 0 Print Language: Amharic [facility] Past Medical History [facility] Narrative: Obesity Medical History Asthma Myofascial pain syndrome Numbness in both hands Polyarthritis Rheumatoid arthritis Surgical History H/O breast biopsy H/O shoulder surgery Hx of section Hx of cholecystectomy Family History Family History Maternal Grandmother Diabetes Father HTN (hypertension) Mother HTN (hypertension) Social History Social History Alcohol intake: never Patient Tobacco Use Status: Never used Tobacco Advance Directives: No Advance Directives Information Provided: No Patient : No
[2020-12-17 12:58] VITALS: BP 138/76; PULSE 82; RESP 16; TEMP 36.7; O2SAT 99
[2020-12-17 13:11] LABS: MANUAL DIFF FLAG NO
[2020-12-17] MEDS: ondansetron HCL 4 MG/2 ML VIAL IVPUSH (13:11)
[2020-12-17] MEDS: Morphine Sulfate 4 MG/ML CARTRIDGE IVPUSH (13:11)
[2020-12-17] MEDS: 0.9 % Sodium Chloride 1,000 ML 999 ML IV (13:11)
[2020-12-17 13:22] LABS: Basophils Percent Auto 0.4 % (0-2); Eosinophils Absolute Auto 0.1 X10*3/uL (0.0-0.4); Eosinophils Percent Auto 1.5 % (0-4); Hematocrit 36.5 % (37-47); Hemoglobin 11.9 g/dl (12.0-16.0); Imm Gran Abs Auto 0.02 X10*3/uL (0.00-0.03); Imm Gran Pct Auto 0.2 % (0.0-0.4); Lymphocytes Absolute Auto 2.4 X10*3/uL (1.2-4.9); Lymphocytes Percent Auto 26.6 % (20-40); Mean Corpuscular HGB Conc 32.6 g/dl (31.0-35.0); Mean Corpuscular Volume 88.8 fL (80-98); Monocytes Absolute Auto 0.8 X10*3/uL (0.1-1.2); Monocytes Percent Auto 9.1 % (2-11); Neutrophils Absolute Auto 5.7 X10*3/uL (2.0-8.3); Neutrophils Percent Auto 62.2 % (45-73); Platelet Count 221 X10*3/uL (160-400); Red Blood Count 4.11 X10*6/uL (4.20-5.50); Red Cell Distribution Width 12.7 % (11.0-16.0); White Blood Count 9.2 X10*3/uL (4.8-10.8)
[2020-12-17 13:25] LABS: Glucose Urine UA NEG (NEG); Leukocyte Esterase Urine NEG (NEG); Nitrite Urine NEG (NEG); Specific Gravity - Urine 1.025 (1.005-1.025); Urine Blood NEG (NEG); Urine Ketones NEG (NEG); Urine Protein NEG (NEG-TRACE)
[2020-12-17 13:27] LABS: Alanine Aminotransferase 24 U/L (0-31); Albumin Level 3.9 g/dL (3.5-5.0); Alkaline Phosphatase 73 U/L (39-117); Anion Gap 12 (12-20); Aspartate Amino Transferase 20 U/L (5-31); Bilirubin Direct 0.4 mg/dL (0.0-0.5); Bilirubin Total 1.3 mg/dL (0.0-1.0); Blood Urea Nitrogen 9 mg/dL (9-16); Calcium 9.1 mg/dL (8.4-10.2); Carbon Dioxide 27 mmol/L (22-29); Chloride 105 mmol/L (96-108); Estimated Glomerular Filt Rate > 60; Glucose Random 85 mg/dL (60-115); Lipase 16 U/L (8-78); Potassium 3.8 mmol/L (3.3-5.1); Sodium 140 mmol/L (135-145); Total Protein 6.4 g/dL (6.5-8.0)
[2020-12-17 13:29] LABS: Appearance Urine CLEAR; Color Urine YELLOW
[2020-12-17 13:52] LABS: UPreg QC Valid YES; Urine Pregnancy NEGATIVE (NEGATIVE)
--- NOTE | 2020-12-17 14:10 | PC.NURSE ---
iv established, blood work obtained and sent. medicated per emar. taken to us via wheelchair.
[2020-12-17 14:48] VITALS: BP 128/80; PULSE 77; RESP 16; TEMP 36.6; O2SAT 100
[2020-12-17 15:24] LABS: CT PCR NOT DETECTED (Not Detect.); NG PCR NOT DETECTED (Not Detect.)
[2020-12-17] MEDS: cefTRIAXone sodium 500 MG, Lidocaine HCl 1 % MPF 1 ML IM (16:13)
[2020-12-17] MEDS: Ketorolac Tromethamine 15 MG/ML VIAL 30 MG IVPUSH (16:13)
[2020-12-18 12:40] LABS: BV Int Neg Control Negative (Negative); BV Int Pos Control Positive (Positive)
== END 2020-12-17 16:35 | disposition home or self-care (01) ==
PROVIDERS: Physician Assistant; Emergency Provider Emergency Medicine; PCP Internal Medicine
DX: N76.0 Acute vaginitis (principal); N83.201 Unspecified ovarian cyst, right side; R10.31 Right lower quadrant pain; M54.5 Low back pain; Z79.899 Other long term (current) drug therapy
CPT/HCPCS: 36415; 76830; 76856; 80048; 80076; 81003; 81025; 83690; 85025; 87480; 87491; 87510; 87591; 87660; 93975; 96361; 96365; 96375; 99284; J0696; J1885; J2270; J2405

== ENCOUNTER 2021-01-05 16:33 | Emergency (ER) | payer MEDICAID, SELFPAY ==
[2021-01-05 18:44] VITALS: BP 134/93; PULSE 123; RESP 18; TEMP 37.8; O2SAT 99; BMI 37.8
--- NOTE | 2021-01-05 18:49 | ED.URI ---
HPI - URI/Sore Throat General Chief Complaint: Upper Respiratory Symptoms Stated Complaint: cough, sore throat Time Seen by Provider: 01/05/21 18:49 Source: patient Mode of arrival: ambulatory Limitations: no limitations History of Present Illness HPI Narrative: 25 y/o female with history of RA, vertigo, kidney stones who presents with 3 day of history of diffuse body aches, headaches and chest pains. She has intermittent dry cough and chest soreness when she coughs. She denies fever or chills. All of her muscles are achy. She has been eating and drinking normally without nausea, vomiting or abdominal pains. No RO[place]. No known sick contacts. She is unvaccinated against COVID. MD elicited complaint: sore throat, nasal congestion and other (body aches) Onset (ago): day(s) (3) Consistency: constant Severity: moderate Able to tolerate fluids by mouth: Yes Exacerbating factors: nothing Relieving factors: nothing Associated symptoms: myalgias, headache, nasal congestion, sore throat and shortness of breath Treatments prior to arrival: none Related Data Home Medications Medication Instructions Recorded Confirmed acetaminophen 650 mg/20.3 mL oral 650 mg PO Q6H PRN 04/21/20 06/13/20 solution albuterol sulfate 90 mcg/actuation 2 puff INHALATION Q6H PRN 04/21/20 06/13/20 aerosol inhaler cyclobenzaprine 10 mg tablet 10 mg PO BEDTIME 04/21/20 06/13/20 diclofenac potassium 50 mg tablet 50 mg PO BID 04/21/20 06/13/20 Previous Rx's Medication Instructions Recorded amoxicillin 500 mg tablet 500 mg PO Q12H #21 tab 05/04/20 cetirizine 10 mg tablet 10 mg PO DAILY #30 tab 05/04/20 ciprofloxacin 0.3 %-dexamethasone 4 drp OTIC (EARS) BID 7 Days #7.5 05/04/20 0.1 % ear drops,suspension ml (Ciprodex) cholecalciferol (vitamin D3) 25 25 mcg PO DAILY #30 cap 05/16/20 mcg (1,000 unit) capsule prednisone 5 mg tablet See Rx Instructions PO DAILY #50 06/13/20 tab certolizumab pegol (Cimzia) 200 mg SUBCUT Q2W #1 ea 06/14/20 certolizumab pegol (Cimzia) 400 mg SUBCUT Q2W #1 ea 06/14/20 hqbzxjcrys-chvprvbazyqln-kjnbcjcw 1 cap PO Q6H PRN #10 cap 09/18/20 50 mg-300 mg-40 mg capsule (Fioricet) ondansetron HCl 4 mg tablet 4 mg PO Q8H PRN #8 tab 10/08/20 (Zofran) pantoprazole 40 mg tablet,delayed 40 mg PO DAILY #14 tab 10/08/20 release (Protonix) sucralfate 1 gram tablet (Carafate) 1 g PO BID #20 tab 10/08/20 meclizine 25 mg tablet 25 mg PO TID PRN #20 tab 11/09/20 ketorolac 10 mg tablet 10 mg PO Q6H PRN 3 Days #12 tab 12/17/20 metronidazole 500 mg tablet 500 mg PO BID 5 Days #10 tab 12/17/20 Allergies Allergy/AdvReac Type Severity Reaction Status Date / Time aspirin Allergy Intermediate rash Verified 01/05/21 18:44 Review of Systems Review of Systems: Constitutional: No Fever, No Chills ENT/Mouth: No sore throat, No Rhinorrhea, No Swallowing Difficulty Cardiovascular: + Chest Pain, + SOB (mild), No Orthopnea, No Edema Respiratory: No Cough, No Sputum, No Wheezing, No dyspnea Gastrointestinal: No Nausea, No Vomiting, No Diarrhea, No abdominal Pain Genitourinary: No Dysuria, No Urinary Frequency, No Hematuria Musculoskeletal: + joint pain, + Myalgias Skin: No Skin Lesions, No rash Neuro: + Weakness, No Numbness, No Dizziness, + Headache Psych: No Anxiety/Panic, No Depression Heme/Lymph: No Bruising, No Lymphadenopathy Endocrine: No Polyuria, No Polydipsia PMFSH Past Medical History Medical History Asthma Myofascial pain syndrome Numbness in both hands Polyarthritis Rheumatoid arthritis Surgical History H/O breast biopsy H/O shoulder surgery Hx of section Hx of cholecystectomy Family History Family History Maternal Grandmother Diabetes Father HTN (hypertension) Mother HTN (hypertension) Social History Social History Alcohol intake: never Patient Tobacco Use Status: Never used Tobacco Advance Directives: No Advance Directives Information Provided: Yes Physical Exam Vital Signs: Vital Signs: Last Vital Signs Temp 100.0 F 01/05/21 18:44 Pulse 123 H 01/05/21 18:44 Resp 18 01/05/21 18:44 BP 134/93 H 01/05/21 18:44 Pulse Ox 99 01/05/21 18:44 Body Mass Index 37.8 Appearance: Alert. Oriented X3. No acute distress. Eyes: Pupils equal, round and reactive to light. ENT: Pharynx normal. Neck: Normal inspection. Neck supple. CVS: Normal heart rate and rhythm. Pulses normal. Respiratory: No respiratory distress. Breath sounds normal. Speaks in complete sentences. No resp distress with ambulation Abdomen: Soft and nontender. +BS x4 Skin: Skin warm and dry. Normal skin color. Normal skin turgor. No rashes. Extremities: No lower extremity edema. Soft tissue tenderness of the LE with soft compressable compartments, no skin changes, no calf tenderness Neuro: Oriented X 3. No motor deficit. No sensory deficit. Course Course Course Narrative: 25 y/o female presenting with COVID symptoms. Slightly tachycardic with low grade fevers 100 on arrival. Her HR normalized with rest and lungs are clear. Will get COVID swab. Reevaluation(s) Reevaluation #1: COVID positive. Used staff cytotechnologist to discuss diagnosis, management and warning signs to prompt urgent re-evaluation. Patient expressed understanding and will follow up with her PCP next week. MDM - URI/Sore Throat Lab Data Labs: Lab Results 01/05/21 Range/Units 18:49 COVID-19 ([facility]) Positive A (Negative) COVID-19 Clin Com See Note Critical Care Time Critical Care Time Critical Care Time: No Discharge Plan Discharge Clinical Impression: COVID-19 Patient Disposition: Home, Self-Care Instructions: COVID-19 (Coronavirus Disease 2019) (ED) Additional Instructions: You were found to be COVID-19 POSITIVE today. Your exam oxygen levels were normal. Rest. Drink plenty of fluids. Do not go out in public for the next 10 days. Take over the counter cold/flu medications as needed for your symptoms. Take Tylenol and/or Motrin as needed for fevers and body aches. Follow up with your doctor this week. If you shortness of breath worsens, if you develop difficulty breathing or any other concerning symptom come back to the ER for further evaluation. Prescriptions: No Action Cimzia 400 mg/2 mL (200 mg/mL x 2) syringe kit 400 mg subcut Q2W Qty: 1 RF: 0 Cimzia 400 mg/2 mL (200 mg/mL x 2) syringe kit 200 mg subcut Q2W Qty: 1 RF: 3 lwyocrajrz-njnmirzyznntd-kucj [Fioricet] 50-300-40 mg capsule 1 cap PO Q6H PRN (Reason: pain) Qty: 10 RF: 0 sucralfate [Carafate] 1 gram tablet 1 g PO BID Qty: 20 RF: 0 ondansetron HCl [Zofran] 4 mg tablet 4 mg PO Q8H PRN (Reason: nausea and vomiting) Qty: 8 RF: 0 pantoprazole [Protonix] 40 mg tablet,delayed release (DR/EC) 40 mg PO DAILY Qty: 14 RF: 0 meclizine 25 mg tablet 25 mg PO TID PRN (Reason: dizziness) Qty: 20 RF: 0 ketorolac 10 mg tablet 10 mg PO Q6H PRN (Reason: pain) 3 Days Qty: 12 RF: 0 metronidazole 500 mg tablet 500 mg PO BID 5 Days Qty: 10 RF: 0 amoxicillin 500 mg tablet 500 mg PO Q12H Qty: 21 RF: 0 cetirizine 10 mg tablet 10 mg PO DAILY Qty: 30 RF: 0 ciprofloxacin-dexamethasone [Ciprodex] 0.3-0.1 % drops,suspension 4 drp otic (ears) BID 7 Days Qty: 7.5 RF: 0 diclofenac potassium 50 mg tablet 50 mg PO BID RF: 0 acetaminophen 650 mg/20.3 mL solution 650 mg PO Q6H PRNRF: 0 cyclobenzaprine 10 mg tablet 10 mg PO BEDTIME RF: 0 albuterol sulfate 90 mcg/actuation HFA aerosol inhaler 2 puff inhalation Q6H PRNRF: 0 cholecalciferol (vitamin D3) 25 mcg (1,000 unit) capsule 25 mcg PO DAILY Qty: 30 RF: 5 prednisone 5 mg tablet See Rx Instructions PO DAILY Qty: 50 RF: 0 Print Language: Upper Sorbian
[2021-01-05 19:02] LABS: COVID-19 Test Positive (Negative)
[2021-01-05] MEDS: Acetaminophen 325 MG TABLET 975 MG PO (19:33)
== END 2021-01-05 19:34 | disposition home or self-care (01) ==
PROVIDERS: Emergency Provider Emergency Medicine; PCP Internal Medicine
DX: U07.1 COVID-19 (principal); R05 Cough; J02.9 Acute pharyngitis, unspecified; Z79.899 Other long term (current) drug therapy
CPT/HCPCS: 36415; 87635; 99283

== ENCOUNTER 2021-02-06 15:22 | Emergency (ER) | payer MEDICAID, SELFPAY ==
[2021-02-06 15:30] VITALS: BP 149/86; PULSE 100; RESP 18; TEMP 36.2; O2SAT 99; BMI 37.0
--- NOTE | 2021-02-06 15:59 | ED_ITS ---
HPI - Female Genitourinary General Chief complaint: Urogenital-Female Stated complaint: Uro-gential female Time Seen by Provider: 02/06/21 15:41 Source: patient Mode of arrival: ambulatory Limitations: no limitations History of Present Illness HPI Narrative: 25 y/o female with history of RA presents to the ER with with ovary pain . She reports constant, lower abdominal cramping pain for the last 3 days. She reports history of an ovarian cyst on ultrasound last month. She reports her last menstrual period was 12/30 and she is 6 days late. She doesn't think she is . She denies any urinary symptoms. She denies any blood in her urine. She also reports some lower back pain. No fever or chills. No vaginal discharge. No concern for STD. MD elicited complaint: pelvic pain and back pain Onset (ago): day(s) (3) Location of symptoms: suprapubic and low back Severity: moderate Female Urogenital Radiation: Non-Radiating Severity scale (1-10): 5 Quality of pain: cramping and aching Consistency: constant Vaginal discharge: none Vaginal bleeding: none Exacerbating factors: movement and palpation Relieving factors: none Associated symptoms: denies other symptoms Treatment prior to arrival: none Sexual activity: No Patient : No Related Data Home Medications Medication Instructions Recorded Confirmed acetaminophen 650 mg/20.3 mL oral 650 mg PO Q6H PRN 04/21/20 06/13/20 solution albuterol sulfate 90 mcg/actuation 2 puff INHALATION Q6H PRN 04/21/20 06/13/20 aerosol inhaler cyclobenzaprine 10 mg tablet 10 mg PO BEDTIME 04/21/20 06/13/20 diclofenac potassium 50 mg tablet 50 mg PO BID 04/21/20 06/13/20 Previous Rx's Medication Instructions Recorded amoxicillin 500 mg tablet 500 mg PO Q12H #21 tab 05/04/20 cetirizine 10 mg tablet 10 mg PO DAILY #30 tab 05/04/20 ciprofloxacin 0.3 %-dexamethasone 4 drp OTIC (EARS) BID 7 Days #7.5 05/04/20 0.1 % ear drops,suspension ml (Ciprodex) cholecalciferol (vitamin D3) 25 25 mcg PO DAILY #30 cap 05/16/20 mcg (1,000 unit) capsule prednisone 5 mg tablet See Rx Instructions PO DAILY #50 03/02/21 tab certolizumab pegol (Cimzia) 200 mg SUBCUT Q2W #1 ea 06/14/20 certolizumab pegol (Cimzia) 400 mg SUBCUT Q2W #1 ea 06/14/20 xbsqpgllgv-gqufkaknusfwo-bolzjgxs 1 cap PO Q6H PRN #10 cap 09/18/20 50 mg-300 mg-40 mg capsule (Fioricet) ondansetron HCl 4 mg tablet 4 mg PO Q8H PRN #8 tab 10/08/20 (Zofran) pantoprazole 40 mg tablet,delayed 40 mg PO DAILY #14 tab 10/08/20 release (Protonix) sucralfate 1 gram tablet (Carafate) 1 g PO BID #20 tab 10/08/20 meclizine 25 mg tablet 25 mg PO TID PRN #20 tab 11/09/20 ketorolac 10 mg tablet 10 mg PO Q6H PRN 3 Days #12 tab 12/17/20 metronidazole 500 mg tablet 500 mg PO BID 5 Days #10 tab 12/17/20 ibuprofen 600 mg tablet 600 mg PO Q8H PRN #20 tab 02/06/21 Allergies Allergy/AdvReac Type Severity Reaction Status Date / Time aspirin Allergy Intermediate rash Verified 01/05/21 18:44 Review of Systems Review of Systems: Constitutional: No Fever, No Chills Cardiovascular: No Chest Pain, No SOB Gastrointestinal: No Nausea, No Vomiting, No Diarrhea, + abdominal Pain Genitourinary: No Dysuria, No Urinary Frequency, No Hematuria, No vaginal d ischarge Musculoskeletal: No joint pain, + Myalgias Skin: No Skin Lesions, No rash Heme/Lymph: No Bruising, No Lymphadenopathy Endocrine: No Polyuria, No Polydipsia PMFSH Past Medical History Medical History Asthma Myofascial pain syndrome Numbness in both hands Polyarthritis Rheumatoid arthritis Surgical History H/O breast biopsy H/O shoulder surgery Hx of section Hx of cholecystectomy Family History Family History Maternal Grandmother Diabetes Father HTN (hypertension) Mother HTN (hypertension) Social History Social History Alcohol intake: never Patient Tobacco Use Status: Never used Tobacco Advance Directives: No Advance Directives Information Provided: Yes Patient : No Physical Exam Vital Signs: Vital Signs: Last Vital Signs Temp 97.2 F 02/06/21 15:30 Pulse 100 02/06/21 15:30 Resp 18 02/06/21 15:30 BP 149/86 H 02/06/21 15:30 Pulse Ox 99 02/06/21 15:30 Body Mass Index 37.0 Appearance: Alert. Oriented X3. No acute distress. Eyes: Pupils equal, round and reactive to light. ENT: Pharynx normal. Neck: Normal inspection. Neck supple. Respiratory: No respiratory distress. Speaks in complete sentences. Abdomen: Obese, Soft and nontender. no rebound or guarding. +BS x4. Pelvic exam deferred. Skin: Skin warm and dry. Normal skin color. Normal skin turgor. No rashes. Extremities: No lower extremity edema. Neuro: Oriented X 3. No motor deficit. No sensory deficit. Course Course Course Narrative: 25 y/o female presenting with lower abdominal cramping pains for the last 3 days. She is overdue for her menses. She denies vaginal discharge or concern for STI. She is nontoxic appearing, abd exam is benign, no tenderness elicited. Her pelvis U/S done Dec 17 showed small right ovarian cyst 2.1 cm and a small fibroid. She also had a CT scan over the summer without any remarkable findings. Given her history and exam there is very low concern for ovarian torsion at this time. She is declining need for pelvic exam today. Will hold off on repeat pelvic ultrasound for now. She may be pre-menopausal awaiting her menses. Will r/o UTI and . Reevaluation(s) Reevaluation #1: UA negative. Urine is negative. Will plan to start NSAID and refer to facing machine operator for further management.Patient agrees with plan. MDM - Female Genitourinary Lab Data Labs: Lab Results 02/06/21 02/06/21 Range/Units 15:52 15:52 Urine Color YELLOW Urine Appearance CLEAR Urine pH 6.5 (5.0-8.0) Ur Specific [place] 1.010 (1.005-1.025) Urine Protein NEG (NEG-TRACE) MG/DL Urine Glucose (UA) NEG (NEG) MG/DL Urine Ketones NEG (NEG) MG/DL Urine Blood NEG (NEG) Urine Nitrite NEG (NEG) Ur Leukocyte Esterase NEG (NEG) Urine Test NEGATIVE (NEGATIVE) Critical Care Time Critical Care Time Critical Care Time: No Discharge Plan Discharge Clinical Impression: Ovarian cyst Qualifiers: Laterality: right Qualified Code(s): N83.201 - Unspecified ovarian cyst, right side Patient Disposition: Home, Self-Care Instructions: Ovarian Cyst (ED) Additional Instructions: Your urine test was normal. The test was negative Recommend the prescribed anti-inflammatory as needed for pain. Use a heating pad to the area as needed for cramping pain. Recommend following up with OBGYN - name and number below. Prescriptions: New ibuprofen 600 mg tablet 600 mg PO Q8H PRN (Reason: pain) Qty: 20 RF: 0 No Action Cimzia 400 mg/2 mL (200 mg/mL x 2) syringe kit 400 mg subcut Q2W Qty: 1 RF: 0 Cimzia 400 mg/2 mL (200 mg/mL x 2) syringe kit 200 mg subcut Q2W Qty: 1 RF: 3 [id number]-gntafyvnhopqp-lguu [Fioricet] 50-300-40 mg capsule 1 cap PO Q6H PRN (Reason: pain) Qty: 10 RF: 0 sucralfate [Carafate] 1 gram tablet 1 g PO BID Qty: 20 RF: 0 ondansetron HCl [Zofran] 4 mg tablet 4 mg PO Q8H PRN (Reason: nausea and vomiting) Qty: 8 RF: 0 pantoprazole [Protonix] 40 mg tablet,delayed release (DR/EC) 40 mg PO DAILY Qty: 14 RF: 0 meclizine 25 mg tablet 25 mg PO TID PRN (Reason: dizziness) Qty: 20 RF: 0 ketorolac 10 mg tablet 10 mg PO Q6H PRN (Reason: pain) 3 Days Qty: 12 RF: 0 metronidazole 500 mg tablet 500 mg PO BID 5 Days Qty: 10 RF: 0 amoxicillin 500 mg tablet 500 mg PO Q12H Qty: 21 RF: 0 cetirizine 10 mg tablet 10 mg PO DAILY Qty: 30 RF: 0 ciprofloxacin-dexamethasone [Ciprodex] 0.3-0.1 % drops,suspension 4 drp otic (ears) BID 7 Days Qty: 7.5 RF: 0 diclofenac potassium 50 mg tablet 50 mg PO BID RF: 0 acetaminophen 650 mg/20.3 mL solution 650 mg PO Q6H PRNRF: 0 cyclobenzaprine 10 mg tablet 10 mg PO BEDTIME RF: 0 albuterol sulfate 90 mcg/actuation HFA aerosol inhaler 2 puff inhalation Q6H PRNRF: 0 cholecalciferol (vitamin D3) 25 mcg (1,000 unit) capsule 25 mcg PO DAILY Qty: 30 RF: 5 prednisone 5 mg tablet See Rx Instructions PO DAILY Qty: 50 RF: 0 Referrals: John Nance MD [Physician] - 1 week (Ovarian cysts, [place]) Interventions: ED Discharge Assessment Last Done: 02/06/21 16:28 Discharge Date/Time: 02/06/21 16:28
[2021-02-06 16:02] LABS: Appearance Urine CLEAR; Color Urine YELLOW; Glucose Urine UA NEG (NEG); Leukocyte Esterase Urine NEG (NEG); Nitrite Urine NEG (NEG); PH 6.5 (5.0-8.0); Urine Blood NEG (NEG); Urine Ketones NEG (NEG); Urine Protein NEG (NEG-TRACE)
[2021-02-06 16:04] LABS: UPreg QC Valid YES; Urine Pregnancy NEGATIVE (NEGATIVE)
== END 2021-02-06 16:28 | disposition home or self-care (01) ==
PROVIDERS: Physician Assistant; Emergency Provider Emergency Medicine Emergency Medical Services
DX: N83.201 Unspecified ovarian cyst, right side (principal); R10.30 Lower abdominal pain, unspecified
CPT/HCPCS: 81003; 81025; 99283; 99284

== ENCOUNTER 2021-02-18 10:35 | Emergency (ER) | payer MEDICAID, SELFPAY ==
--- NOTE | ~2021-02-18 | CT_ITS ---
EXAMINATION: CT ABDOMEN AND PELVIS WITH CONTRAST CLINICAL INFORMATION: Right lower quadrant pain. History of ovarian cyst. COMPARISON: Ultrasound of December 17, [address] of October 08, 2020 TECHNIQUE: Multidetector volumetric images were obtained from the superior aspect of the liver through the pubic symphysis following administration 85 mL of Omnipaque 350 intravenous contrast. Sagittal and coronal reformatted images were obtained on the technologist's workstation. Oral contrast: No This CT examination was performed using dose optimization techniques as appropriate, variously including the following: *Automated exposure control *Adjustment of mA and/or kV according to patient size (this includes techniques or standardized protocols for targeted exams where dose is matched to indication/reason for exam; i.e. extremities or head) *Use of iterative reconstruction technique DLP: 954 mGy-cm FINDINGS: LUNG BASES: The visualized lung bases are unremarkable. No pleural or pericardial effusion. LIVER, GALLBLADDER, AND BILIARY TREE: There is diffuse fatty infiltration of the liver. No focal mass is identified. No intrahepatic bile duct dilatation is seen. There is hepatomegaly with vertical span of 23 cm. Status post cholecystectomy. PANCREAS: Unremarkable. SPLEEN: Unremarkable. ADRENAL GLANDS: Unremarkable. KIDNEYS AND URETERS: The kidneys are normal in size, shape, and attenuation. No hydronephrosis, hydroureter, or calculi seen. No perinephric stranding. BLADDER: Unremarkable. GASTROINTESTINAL TRACT: No dilated loops of large or small bowel. No free air or free fluid. There is a moderate-sized hiatal hernia. No pericolonic inflammatory changes appreciated. The appendix appears unremarkable. ABDOMINAL WALL: No significant hernia is appreciated. LYMPH NODES: Normal. VASCULAR: Unremarkable. PELVIC VISCERA: Unremarkable. There appear to be small bilateral adnexal cysts, the largest measuring 2 cm in diameter. OSSEOUS STRUCTURES: Unremarkable. CT/CT abdomen pelvis w con IMPRESSION: Hepatomegaly with fatty infiltration of the liver. Moderate size hiatal hernia. No evidence of acute appendicitis. No obstructive uropathy.
[2021-02-18 11:06] VITALS: BP 147/94; PULSE 84; RESP 18; TEMP 36.6; O2SAT 99; BMI 37.4
--- NOTE | 2021-02-18 11:18 | ED.ABDPAIN ---
HPI - Abdominal Pain General Chief Complaint: Abdominal Pain Stated Complaint: lower abd pain Time Seen by Provider: 02/18/21 10:42 Source: patient Mode of arrival: ambulatory Limitations: no limitations History of Present Illness HPI narrative: Patient comes emergency room complaining of right lower quadrant pain for 2 days. Patient states it is intermittent pain. Denies nausea vomiting or diarrhea. Patient states she has history ovarian cysts but this pain feels different. Patient also states that her menstrual period is 18 days late. Related Data Home Medications Medication Instructions Recorded Confirmed acetaminophen 650 mg/20.3 mL oral 650 mg PO Q6H PRN 04/21/20 06/13/20 solution albuterol sulfate 90 mcg/actuation 2 puff INHALATION Q6H PRN 04/21/20 06/13/20 aerosol inhaler cyclobenzaprine 10 mg tablet 10 mg PO BEDTIME 04/21/20 06/13/20 diclofenac potassium 50 mg tablet 50 mg PO BID 04/21/20 06/13/20 Previous Rx's Medication Instructions Recorded amoxicillin 500 mg tablet 500 mg PO Q12H #21 tab 05/04/20 cetirizine 10 mg tablet 10 mg PO DAILY #30 tab 05/04/20 ciprofloxacin 0.3 %-dexamethasone 4 drp OTIC (EARS) BID 7 Days #7.5 05/04/20 0.1 % ear drops,suspension ml (Ciprodex) cholecalciferol (vitamin D3) 25 25 mcg PO DAILY #30 cap 05/16/20 mcg (1,000 unit) capsule prednisone 5 mg tablet See Rx Instructions PO DAILY #50 06/13/20 tab certolizumab pegol (Cimzia) 200 mg SUBCUT Q2W #1 ea 06/14/20 certolizumab pegol (Cimzia) 400 mg (2 mL) SUBCUT Q2W #1 ea 06/14/20 [id number]-vmoolflejlnhy-zkevshji 1 cap PO Q6H PRN #10 cap 09/18/20 50 mg-300 mg-40 mg capsule (Fioricet) ondansetron HCl 4 mg tablet 4 mg PO Q8H PRN #8 tab 10/08/20 (Zofran) pantoprazole 40 mg tablet,delayed 40 mg PO DAILY #14 tab 10/08/20 release (Protonix) sucralfate 1 gram tablet (Carafate) 1 g PO BID #20 tab 10/08/20 meclizine 25 mg tablet 25 mg PO TID PRN #20 tab 11/09/20 ketorolac 10 mg tablet 10 mg PO Q6H PRN 3 Days #12 tab 12/17/20 metronidazole 500 mg tablet 500 mg PO BID 5 Days #10 tab 12/17/20 ibuprofen 600 mg tablet 600 mg PO Q8H PRN #20 tab 02/06/21 ketorolac 10 mg tablet 10 mg PO .B.i.d. PRN 5 Days #7 tab 02/18/21 Allergies Allergy/AdvReac Type Severity Reaction Status Date / Time aspirin Allergy Intermediate rash Verified 01/05/21 18:44 Review of Systems Review of Systems Constitutional : No Weight loss, No Fever, No Chills, No Night Sweats, No Fatigue, No Malaise ENT/Mouth : No Hearing loss, No Ear Pain, No Nasal Congestion, No Sinus Pain, No Hoarseness, No sore throat, No Rhinorrhea, No Swallowing Difficulty Eyes: No Eye Pain, No Swelling, No Redness, No Foreign Body, No Discharge, No Vision Changes Cardiovascular : No Chest Pain, No SOB, No Dyspnea on Exertion, No Orthopnea, No Edema, No Palpitations Respiratory : No Cough, No Sputum, No Wheezing, No Smoke Exposure, No Dyspnea Gastrointestinal : No Nausea, No Vomiting, No Diarrhea, No Constipation, right lower quadrant pain, No Hematochezia, No Melena Genitourinary : Late menstrual period, No Dysuria, No Urinary Frequency, No Hematuria, No Urinary Incontinence, No Urgency, No Flank Pain, No Urinary Flow Changes, No Hesitancy Musculoskeletal : No joint pain, No Myalgias, No Joint Swelling Skin : No Skin Lesions, No rash Neuro : No Weakness, No Numbness, No Paresthesias, No Loss of Consciousness, No Dizziness, No Headache Psych : No Anxiety/Panic, No Depression, No SI/HI/AH/VH, No Social Issues, Heme/Lymph: No Bruising, No Bleeding,No Lymphadenopathy Endocrine : No Polyuria, No Polydipsia, No Temperature Intolerance Physical Exam Vital Signs: Vital Signs: Last Vital Signs Temp 97.8 F 02/18/21 11:06 Pulse 87 02/18/21 12:22 Resp 18 02/18/21 12:22 BP 114/73 02/18/21 12:22 Pulse Ox 100 02/18/21 12:22 Body Mass Index 37.4 Const: Other: Appearance: Alert. Oriented X3. No acute distress. Eyes: Pupils equal, round and reactive to light. ENT: Pharynx normal. Neck: Normal inspection. Neck supple. No lymph nodes noted. No crepitus CVS: Normal heart rate and rhythm. Pulses normal. Normal S1 and S2 Respiratory: No respiratory distress. Breath sounds normal. No Wheezing. No rales Abdomen: Soft , moderate tenderness to palpation over the right lower quadrant, no rebound, no guarding, No rigidity. No distention Skin: Skin warm and dry. Normal skin color. Normal skin turgor. Extremities: No lower extremity edema. No lower extremity edema. No Lacerations. No Rash Neuro: Oriented X 3. No motor deficit. No sensory deficit. Moving all extermities. No slurred speech. Course Course Course Narrative: I discussed the CT scan and labs with the patient, patient's pain likely secondary to ovarian cyst. Patient is not a candidate for oral contraceptives she has history of severe migraines. Patient will follow-up with her primary care physician/OBGYN, she will discuss using IUDs. Patient states that she feels much better after IV Toradol. MDM - Abdominal Pain Lab Data Result diagrams: 02/18/21 11:58 02/18/21 11:58 Labs: Lab Results 02/18/21 02/18/21 02/18/21 Range/Units 11:58 11:58 11:58 WBC 6.4 (4.8-10.8) X10*3/uL RBC 4.44 (4.20-5.50) X10*6/uL Hgb 12.8 (12.0-16.0) g/dl Hct 39.5 (37.0-47.0) % MCV 89.0 (80.0-98.0) fL MCH 28.8 (27.0-33.0) pg MCHC 32.4 (31.0-35.0) g/dl RDW 12.8 (11.0-16.0) % Plt Count 262 (160-400) X10*3/uL MPV 9.7 (9.4-12.3) fL Immature Gran % (Auto) 0.3 (0.0-0.4) % Neut % (Auto) 57.3 (45-73) % Lymph % (Auto) 29.6 (20-40) % [place] % (Auto) 9.2 (2-11) % Eos % (Auto) 2.8 (0-4) % Baso % (Auto) 0.8 (0-2) % Lymph # (Auto) 1.9 (1.2-4.9) X10*3/uL [place] # (Auto) 0.6 (0.1-1.2) X10*3/uL Eos # (Auto) 0.2 (0.0-0.4) X10*3/uL Baso # (Auto) 0.1 (0.0-0.2) X10*3/uL Abs Immat Gran (auto) 0.02 (0.00-0.03) X10*3/uL Absolute Neuts (auto) 3.7 (2.0-8.3) x10*3/uL Absolute Nucleated RBC 0.000 (0.0-0.012) X10*3/uL Nucleated RBC % (auto) 0.0 (0.0-0.2) /100WBC Sodium 141 (135-145) mmol/L Potassium 4.1 (3.3-5.1) mmol/L Chloride 106 (96-108) mmol/L Carbon Dioxide 26 (22-29) mmol/L Anion Gap 13 (12-20) BUN 11 (9-16) mg/dL Creatinine 0.78 (0.5-1.4) mg/dL Estim Creat Clear Calc 110.4 Estimated GFR > 60 Random Glucose 99 (60-115) mg/dL Calcium 9.1 (8.4-10.2) mg/dL Total Bilirubin 1.1 H (0.0-1.0) mg/dL Direct Bilirubin 0.3 (0.0-0.5) mg/dL AST 29 D (5-31) U/L ALT 45 H (0-31) U/L Alkaline Phosphatase 84 (39-117) U/L Total Protein 7.4 (6.5-8.0) g/dL Albumin 4.2 (3.5-5.0) g/dL Beta HCG, Quant < 2 mIU/mL Urine Color YELLOW Urine Appearance HAZY Urine pH 5.5 (5.0-8.0) Ur Specific [employer] >= 1.030 H (1.005-1.025) Urine Protein NEG (NEG-TRACE) MG/DL Urine Glucose (UA) NEG (NEG) MG/DL Urine Ketones NEG (NEG) MG/DL Urine Blood NEG (NEG) Urine Nitrite NEG (NEG) Ur Leukocyte Esterase NEG (NEG) Discharge Plan Discharge Clinical Impression: Ovarian cyst Qualifiers: Laterality: bilateral Qualified Code(s): N83.201 - Unspecified ovarian cyst, right side Patient Disposition: Home, Self-Care Instructions: Ovarian Cyst (ED) Additional Instructions: Please follow-up with your primary care physician tomorrow. If you have any worsening or new symptoms, please return to the emergency room or call 911 Prescriptions: New ketorolac 10 mg tablet 10 mg PO .B.i.d. PRN (Reason: pain) 5 Days Qty: 7 RF: 0 No Action Cimzia 400 mg/2 mL (200 mg/mL x 2) syringe kit 400 mg subcut Q2W Qty: 1 RF: 0 Cimzia 400 mg/2 mL (200 mg/mL x 2) syringe kit 200 mg subcut Q2W Qty: 1 RF: 3 [id number]-gehwmgzriemij-zsiy [Fioricet] 50-300-40 mg capsule 1 cap PO Q6H PRN (Reason: pain) Qty: 10 RF: 0 sucralfate [Carafate] 1 gram tablet 1 g PO BID Qty: 20 RF: 0 ondansetron HCl [Zofran] 4 mg tablet 4 mg PO Q8H PRN (Reason: nausea and vomiting) Qty: 8 RF: 0 pantoprazole [Protonix] 40 mg tablet,delayed release (DR/EC) 40 mg PO DAILY Qty: 14 RF: 0 meclizine 25 mg tablet 25 mg PO TID PRN (Reason: dizziness) Qty: 20 RF: 0 ketorolac 10 mg tablet 10 mg PO Q6H PRN (Reason: pain) 3 Days Qty: 12 RF: 0 metronidazole 500 mg tablet 500 mg PO BID 5 Days Qty: 10 RF: 0 amoxicillin 500 mg tablet 500 mg PO Q12H Qty: 21 RF: 0 cetirizine 10 mg tablet 10 mg PO DAILY Qty: 30 RF: 0 ciprofloxacin-dexamethasone [Ciprodex] 0.3-0.1 % drops,suspension 4 drp otic (ears) BID 7 Days Qty: 7.5 RF: 0 ibuprofen 600 mg tablet 600 mg PO Q8H PRN (Reason: pain) Qty: 20 RF: 0 diclofenac potassium 50 mg tablet 50 mg PO BID RF: 0 acetaminophen 650 mg/20.3 mL solution 650 mg PO Q6H PRNRF: 0 cyclobenzaprine 10 mg tablet 10 mg PO BEDTIME RF: 0 albuterol sulfate 90 mcg/actuation HFA aerosol inhaler 2 puff inhalation Q6H PRNRF: 0 cholecalciferol (vitamin D3) 25 mcg (1,000 unit) capsule 25 mcg PO DAILY Qty: 30 RF: 5 prednisone 5 mg tablet See Rx Instructions PO DAILY Qty: 50 RF: 0 PMFSH Past Medical History Medical History Asthma Myofascial pain syndrome Numbness in both hands Polyarthritis Rheumatoid arthritis Surgical History H/O breast biopsy H/O shoulder surgery Hx of section Hx of cholecystectomy Family History Family History Maternal Grandmother Diabetes Father HTN (hypertension) Mother HTN (hypertension) Social History Social History Alcohol intake: never Patient Tobacco Use Status: Never used Tobacco Advance Directives: No Advance Directives Information Provided: No
[2021-02-18 12:02] LABS: MANUAL DIFF FLAG NO
[2021-02-18] MEDS: Ketorolac Tromethamine 15 MG/ML VIAL IVPUSH (12:03)
[2021-02-18 12:04] LABS: Basophils Absolute Auto 0.1 X10*3/uL (0.0-0.2); Basophils Percent Auto 0.8 % (0-2); Eosinophils Absolute Auto 0.2 X10*3/uL (0.0-0.4); Eosinophils Percent Auto 2.8 % (0-4); Hematocrit 39.5 % (37.0-47.0); Hemoglobin 12.8 g/dl (12.0-16.0); Imm Gran Abs Auto 0.02 X10*3/uL (0.00-0.03); Imm Gran Pct Auto 0.3 % (0.0-0.4); Lymphocytes Absolute Auto 1.9 X10*3/uL (1.2-4.9); Lymphocytes Percent Auto 29.6 % (20-40); Mean Corpuscular HGB Conc 32.4 g/dl (31.0-35.0); Mean Corpuscular Hemoglobin 28.8 pg (27.0-33.0); Mean Platelet Volume 9.7 fL (9.4-12.3); Monocytes Absolute Auto 0.6 X10*3/uL (0.1-1.2); Monocytes Percent Auto 9.2 % (2-11); Neutrophils Absolute Auto 3.7 x10*3/uL (2.0-8.3); Neutrophils Percent Auto 57.3 % (45-73); Platelet Count 262 X10*3/uL (160-400); Red Blood Count 4.44 X10*6/uL (4.20-5.50); Red Cell Distribution Width 12.8 % (11.0-16.0); White Blood Count 6.4 X10*3/uL (4.8-10.8)
[2021-02-18 12:20] LABS: Appearance Urine HAZY; Color Urine YELLOW; Glucose Urine UA NEG (NEG); Leukocyte Esterase Urine NEG (NEG); Nitrite Urine NEG (NEG); PH 5.5 (5.0-8.0); Specific Gravity - Urine >= 1.030 (1.005-1.025); Urine Blood NEG (NEG); Urine Ketones NEG (NEG); Urine Protein NEG (NEG-TRACE)
[2021-02-18 12:21] LABS: Alanine Aminotransferase 45 U/L (0-31); Albumin Level 4.2 g/dL (3.5-5.0); Alkaline Phosphatase 84 U/L (39-117); Anion Gap 13 (12-20); Aspartate Amino Transferase 29 U/L (5-31); Bilirubin Direct 0.3 mg/dL (0.0-0.5); Bilirubin Total 1.1 mg/dL (0.0-1.0); Blood Urea Nitrogen 11 mg/dL (9-16); Calcium 9.1 mg/dL (8.4-10.2); Carbon Dioxide 26 mmol/L (22-29); Chloride 106 mmol/L (96-108); Creatinine Clr Calc Pharmacy 110.4; Estimated Glomerular Filt Rate > 60; Glucose Random 99 mg/dL (60-115); Potassium 4.1 mmol/L (3.3-5.1); Sodium 141 mmol/L (135-145); Total Protein 7.4 g/dL (6.5-8.0)
[2021-02-18 12:22] VITALS: BP 114/73; PULSE 87; RESP 18; O2SAT 100
[2021-02-18 12:26] LABS: HCG Quantitative < 2 mIU/mL
[2021-02-18] MEDS: iohexoL 350 MG/ML 100 ML INFUS..BTL IV (13:12)
--- NOTE | 2021-02-18 13:12 | PC.NURSE ---
pt c/o right lower quadrant pain x2 days, she stated the pain is intermittent and feels like cramps. she denied n/v/d. she also reported having history of ovarian cysts but stated this pain feels different. pt also reported that her last menstrual period was approximately 18 days ago. her vss.
== END 2021-02-18 14:50 | disposition home or self-care (01) ==
PROVIDERS: Emergency Provider Emergency Medicine; PCP Internal Medicine
DX: N83.202 Unspecified ovarian cyst, left side (principal); N83.201 Unspecified ovarian cyst, right side; R10.31 Right lower quadrant pain; Z90.49 Acquired absence of other specified parts of digestive tract
CPT/HCPCS: 36415; 74177; 80048; 80076; 81003; 84702; 85025; 96374; 99284; J1885; Q9967

== ENCOUNTER 2021-03-16 13:54 | Outpatient (RCR) | payer MEDICAID, SELFPAY | END 2021-03-29 16:38 | disposition home or self-care (01) | LOC: HO.PT 13:54 | PROVIDERS: PCP Internal Medicine; Visit Provider Family Medicine | DX: M05.9 Rheumatoid arthritis with rheumatoid factor, unspecified (principal); M79.7 Fibromyalgia | CPT/HCPCS: 97112; 97162 ==

== ENCOUNTER 2021-04-02 16:46 | Emergency (ER) | payer MEDICAID, SELFPAY ==
--- NOTE | ~2021-04-02 | US_ITS ---
EXAMINATION:US pelvic ovarian doppler, US pelvic and transvaginal CLINICAL INFORMATION: Reason for Exam Patient with left lower quadrant/suprapubic ovarian pain COMPARISON: No priors available. FINDINGS: UTERUS: The uterus is anteverted. Size: 7.6 x 4.2 x 5 cm. Uterine mass: Small subserosal mass likely small fibroid measures 1 x 1.1 x 1.2 cm. Cervix: Grossly unremarkable. Endometrium: No ultrasound evidence of endometrial lesion. endometrial thickness measures 1 cm ADNEXA: Normal Right ovary: Normal in size. Cystic structure in the right ovary likely dominant follicle 1.8 x 1.9 x 2.1 cm Left ovary: Normal in size. Doppler exam: Normal Doppler flow identified in both ovaries. FREE FLUID: Trace amount of free fluid. OTHER FINDINGS: None US/US pelvic ovarian doppler IMPRESSION: Intramural mass likely fibroid 1.2 cm. Cystic structure in the right ovary 1.9 x 2.1 cm likely dominant follicle. Ultrasound otherwise normal.
--- NOTE | ~2021-04-02 | US_ITS ---
EXAMINATION:US pelvic ovarian doppler, US pelvic and transvaginal CLINICAL INFORMATION: Reason for Exam Patient with left lower quadrant/suprapubic ovarian pain COMPARISON: No priors available. FINDINGS: UTERUS: The uterus is anteverted. Size: 7.6 x 4.2 x 5 cm. Uterine mass: Small subserosal mass likely small fibroid measures 1 x 1.1 x 1.2 cm. Cervix: Grossly unremarkable. Endometrium: No ultrasound evidence of endometrial lesion. endometrial thickness measures 1 cm ADNEXA: Normal Right ovary: Normal in size. Cystic structure in the right ovary likely dominant follicle 1.8 x 1.9 x 2.1 cm Left ovary: Normal in size. Doppler exam: Normal Doppler flow identified in both ovaries. FREE FLUID: Trace amount of free fluid. OTHER FINDINGS: None US/US pelvic and transvaginal IMPRESSION: Intramural mass likely fibroid 1.2 cm. Cystic structure in the right ovary 1.9 x 2.1 cm likely dominant follicle. Ultrasound otherwise normal.
[2021-04-02 17:41] VITALS: BP 145/94; PULSE 88; RESP 18; TEMP 36.8; O2SAT 100; BMI 37.0
--- NOTE | 2021-04-02 17:42 | ED.ABDPAIN ---
HPI - Abdominal Pain General Chief Complaint: Urogenital-Female Stated Complaint: abd pain Time Seen by Provider: 04/02/21 17:40 Related Data Home Medications Medication Instructions Recorded Confirmed acetaminophen 650 mg/20.3 mL oral 650 mg PO Q6H PRN 04/21/20 06/13/20 solution albuterol sulfate 90 mcg/actuation 2 puff INHALATION Q6H PRN 04/21/20 06/13/20 aerosol inhaler cyclobenzaprine 10 mg tablet 10 mg PO BEDTIME 04/21/20 06/13/20 diclofenac potassium 50 mg tablet 50 mg PO BID 04/21/20 06/13/20 Previous Rx's Medication Instructions Recorded amoxicillin 500 mg tablet 500 mg PO Q12H #21 tab 05/04/20 cetirizine 10 mg tablet 10 mg PO DAILY #30 tab 05/04/20 ciprofloxacin 0.3 %-dexamethasone 4 drp OTIC (EARS) BID 7 Days #7.5 05/04/20 0.1 % ear drops,suspension ml (Ciprodex) cholecalciferol (vitamin D3) 25 25 mcg PO DAILY #30 cap 05/16/20 mcg (1,000 unit) capsule prednisone 5 mg tablet See Rx Instructions PO DAILY #50 06/13/20 tab certolizumab pegol (Cimzia) 200 mg SUBCUT Q2W #1 ea 06/14/20 certolizumab pegol (Cimzia) 400 mg (2 mL) SUBCUT Q2W #1 ea 06/14/20 fbkpakzpua-vqjnhuqazgieb-wlutgaib 1 cap PO Q6H PRN #10 cap 09/18/20 50 mg-300 mg-40 mg capsule (Fioricet) ondansetron HCl 4 mg tablet 4 mg PO Q8H PRN #8 tab 10/08/20 (Zofran) pantoprazole 40 mg tablet,delayed 40 mg PO DAILY #14 tab 10/08/20 release (Protonix) sucralfate 1 gram tablet (Carafate) 1 g PO BID #20 tab 10/08/20 meclizine 25 mg tablet 25 mg PO TID PRN #20 tab 11/09/20 ketorolac 10 mg tablet 10 mg PO Q6H PRN 3 Days #12 tab 12/17/20 metronidazole 500 mg tablet 500 mg PO BID 5 Days #10 tab 12/17/20 ibuprofen 600 mg tablet 600 mg PO Q8H PRN #20 tab 02/06/21 ketorolac 10 mg tablet 10 mg PO .B.i.d. PRN 5 Days #7 tab 02/18/21 Allergies Allergy/AdvReac Type Severity Reaction Status Date / Time aspirin Allergy Intermediate rash Verified 01/05/21 18:44 Physical Exam Vital Signs: Vital Signs: Last Vital Signs Temp 98.3 F 04/02/21 17:41 Pulse 88 04/02/21 17:41 Resp 18 04/02/21 17:41 BP 145/94 H 04/02/21 17:41 Pulse Ox 100 04/02/21 17:41 BMI result Body Mass Index 37.0 Course Course Course Narrative: 17:45pm - 25-year-old female who is Uz[place]-speaking presenting to the ED with complaints of 2 days of left lower quadrant/suprapubic ovarian pain that radiates to her left leg worse today. Denies any other symptoms related to this. Reports that she had ovarian cyst to the right ovary. Reports that her last menstrual period was 2 and half months ago although she has had multiple negative test. Therefore at this time labs ordered along with UA and UHCG and ultrasound pelvic/transvaginal/ovarian Doppler and patient will be sent back to the waiting room for further evaluation treatment emergency department. MDM - Abdominal Pain Lab Data Labs: Lab Results 04/02/21 04/02/21 Range/Units 17:54 17:54 Urine Color YELLOW Urine Appearance CLEAR Urine pH 6.0 (5.0-8.0) Ur Specific [place] 1.020 (1.005-1.025) Urine Protein NEG (NEG-TRACE) MG/DL Urine Glucose (UA) NEG (NEG) MG/DL Urine Ketones NEG (NEG) MG/DL Urine Blood NEG (NEG) Urine Nitrite NEG (NEG) Ur Leukocyte Esterase NEG (NEG) Urine Test NEGATIVE (NEGATIVE) Discharge Plan Discharge Clinical Impression: Abdominal pain Patient Disposition: Elopement Prescriptions: No Action Cimzia 400 mg/2 mL (200 mg/mL x 2) syringe kit 400 mg subcut Q2W Qty: 1 RF: 0 Cimzia 400 mg/2 mL (200 mg/mL x 2) syringe kit 200 mg subcut Q2W Qty: 1 RF: 3 ivpwmavadj-omkrblxaoiruv-qiws [Fioricet] 50-300-40 mg capsule 1 cap PO Q6H PRN (Reason: pain) Qty: 10 RF: 0 sucralfate [Carafate] 1 gram tablet 1 g PO BID Qty: 20 RF: 0 ondansetron HCl [Zofran] 4 mg tablet 4 mg PO Q8H PRN (Reason: nausea and vomiting) Qty: 8 RF: 0 pantoprazole [Protonix] 40 mg tablet,delayed release (DR/EC) 40 mg PO DAILY Qty: 14 RF: 0 meclizine 25 mg tablet 25 mg PO TID PRN (Reason: dizziness) Qty: 20 RF: 0 ketorolac 10 mg tablet 10 mg PO Q6H PRN (Reason: pain) 3 Days Qty: 12 RF: 0 metronidazole 500 mg tablet 500 mg PO BID 5 Days Qty: 10 RF: 0 amoxicillin 500 mg tablet 500 mg PO Q12H Qty: 21 RF: 0 cetirizine 10 mg tablet 10 mg PO DAILY Qty: 30 RF: 0 ciprofloxacin-dexamethasone [Ciprodex] 0.3-0.1 % drops,suspension 4 drp otic (ears) BID 7 Days Qty: 7.5 RF: 0 ibuprofen 600 mg tablet 600 mg PO Q8H PRN (Reason: pain) Qty: 20 RF: 0 ketorolac 10 mg tablet 10 mg PO .B.i.d. PRN (Reason: pain) 5 Days Qty: 7 RF: 0 diclofenac potassium 50 mg tablet 50 mg PO BID RF: 0 acetaminophen 650 mg/20.3 mL solution 650 mg PO Q6H PRNRF: 0 cyclobenzaprine 10 mg tablet 10 mg PO BEDTIME RF: 0 albuterol sulfate 90 mcg/actuation HFA aerosol inhaler 2 puff inhalation Q6H PRNRF: 0 cholecalciferol (vitamin D3) 25 mcg (1,000 unit) capsule 25 mcg PO DAILY Qty: 30 RF: 5 prednisone 5 mg tablet See Rx Instructions PO DAILY Qty: 50 RF: 0 Interventions: LWBS Worksheet Last Done: 04/02/21 22:34 Discharge Date/Time: 04/02/21 22:34 [facility] Past Medical History Medical History Asthma Myofascial pain syndrome Numbness in both hands Polyarthritis Rheumatoid arthritis Surgical History H/O breast biopsy H/O shoulder surgery Hx of section Hx of cholecystectomy Family History Family History Maternal Grandmother Diabetes Father HTN (hypertension) Mother HTN (hypertension) Social History Social History Alcohol intake: never Patient Tobacco Use Status: Never used Tobacco Advance Directives: No Advance Directives Information Provided: No Patient : No
[2021-04-02 18:08] LABS: Appearance Urine CLEAR; Color Urine YELLOW; Glucose Urine UA NEG (NEG); Leukocyte Esterase Urine NEG (NEG); Nitrite Urine NEG (NEG); Urine Blood NEG (NEG); Urine Ketones NEG (NEG); Urine Protein NEG (NEG-TRACE)
[2021-04-02 18:10] LABS: UPreg QC Valid YES; Urine Pregnancy NEGATIVE (NEGATIVE)
== END 2021-04-02 22:34 | disposition left against medical advice (07) ==
PROVIDERS: Physician Assistant Medical; Emergency Provider Emergency Medicine; PCP Internal Medicine
DX: R10.9 Unspecified abdominal pain (principal)
CPT/HCPCS: 76830; 76856; 81003; 81025; 93975; 99281; 99284

== ENCOUNTER → 2021-04-17 10:49 | Outpatient (BNVA) | payer MEDICAID, SELFPAY | PROVIDERS: Visit Provider Advanced Practice Midwife | DX: N92.6 Irregular menstruation, unspecified (principal); E66.01 Morbid (severe) obesity due to excess calories; Z68.42 Body mass index [BMI] 45.0-49.9, adult | CPT/HCPCS: 81025; 99202 ==

== ENCOUNTER 2021-05-02 15:32 | Outpatient (REF) | payer MEDICAID, SELFPAY ==
--- NOTE | ~2021-05-02 | US_ITS ---
EXAMINATION: US PELVIS CLINICAL INFORMATION: Irregular menses. COMPARISON: None TECHNIQUE: Ultrasound of the pelvis is performed using both transabdominal and transvaginal transducers along with Doppler. Transvaginal imaging is performed due to inadequate visualization transabdominally. FINDINGS: Uterus: The uterus is anteverted and anteflexed and measures 7.44 cm in length, 3.5 cm in AP, and 4.62 cm in transverse dimension. The double wall endometrial thickness is 0.63 cm. The uterus is smooth in contour and has normal myometrial echogenicity. There is a hypoechoic lesion in the lower anterior body of the uterus measuring 1.2 x 1.3 x 0.98 cm. Previously it measured 0.90 x 0.90 x 1.1 cm. There are small nabothian cysts in the cervix. Adnexa: Both ovaries are visualized. There is normal color-flow to the adnexa. There is no ovarian torsion. There is no pelvic ascites or fluid collection. Right ovary measures 2.75 x 2.03 x 2.82 cm and volume 8.24 mL. Previously it measured 2.6 x 2.5 x 2.5 cm. Left ovary measures 3.09 x 1.17 x 2.12 cm and volume 4.01 mL. Previously it measured 3.2 x 1.5 x 1.5 cm. US/US pelvic and transvaginal IMPRESSION: Stable small uterine fibroid. Unremarkable ovaries. Small nabothian cysts in the cervix.
== END 2021-05-02 15:33 | disposition home or self-care (01) ==
LOC: HO.HMGCX 15:32
PROVIDERS: PCP Internal Medicine; Visit Provider Internal Medicine
DX: N92.6 Irregular menstruation, unspecified (principal)
CPT/HCPCS: 76830; 76856

== ENCOUNTER 2021-05-06 14:24 | Emergency (ER) | payer MEDICAID, SELFPAY ==
[2021-05-06 15:18] VITALS: BP 144/90; PULSE 109; TEMP 36.7; O2SAT 100; BMI 35.9
[2021-05-06 15:45] LABS: Appearance Urine HAZY; Color Urine YELLOW; Glucose Urine UA NEG (NEG); Leukocyte Esterase Urine 2+ (NEG); Nitrite Urine POS (NEG); Specific Gravity - Urine 1.025 (1.005-1.025); Urine Blood 3+ (NEG); Urine Ketones NEG (NEG); Urine Protein 2+ MG/DL (NEG-TRACE)
[2021-05-06 15:51] LABS: Bacteria Urine 2+ /LPF; Squamous Epithelial Cell Urine 2+ /LPF
[2021-05-06 16:27] LABS: UPreg QC Valid YES; Urine Pregnancy NEGATIVE (NEGATIVE)
--- NOTE | 2021-05-06 16:46 | ED.FEMALEGU ---
HPI - Female Genitourinary General Chief complaint: Urogenital-Female <Swetha Messer NP - Last Filed: 05/06/21 16:49> Stated complaint: Back pain <Swetha Messer NP - Last Filed: 05/06/21 16:49> Time Seen by Provider: 05/06/21 16:20 <Swetha Messer NP - Last Filed: 05/06/21 16:49> Source: patient and brass roller <Swetha Messer NP - Last Filed: 05/06/21 16:49> Mode of arrival: ambulatory <Swetha Messer NP - Last Filed: 05/06/21 16:49> Limitations: language barrier <Swetha Messer NP - Last Filed: 05/06/21 16:49> History of Present Illness HPI Narrative: 26-year-old female here with reports of low back pain with dysuria since Friday. No nausea, vomiting, fevers or chills. <Swetha Messer NP - Last Filed: 05/06/21 16:49> Related Data Home medications: Home Medications Medication Instructions Recorded Confirmed acetaminophen 650 mg/20.3 mL oral 650 mg PO Q6H PRN 04/21/20 04/17/21 solution albuterol sulfate 90 mcg/actuation 2 puff INHALATION Q6H PRN 04/21/20 04/17/21 aerosol inhaler duloxetine 60 mg capsule,delayed 60 mg PO DAILY 04/17/21 04/17/21 release (Cymbalta) gabapentin 300 mg capsule 300 mg PO TID 04/17/21 04/17/21 Previous Rx's Medication Instructions Recorded cetirizine 10 mg tablet 10 mg PO DAILY #30 tab 05/04/20 cholecalciferol (vitamin D3) 25 25 mcg PO DAILY #30 cap 05/16/20 mcg (1,000 unit) capsule certolizumab pegol (Cimzia) 400 mg (2 mL) SUBCUT Q2W #1 ea 06/14/20 dopmnlmpsl-tgtnbwxvgyybx-zoondojv 1 cap PO Q6H PRN #10 cap 09/18/20 50 mg-300 mg-40 mg capsule (Fioricet) pantoprazole 40 mg tablet,delayed 40 mg PO DAILY #14 tab 10/08/20 release (Protonix) meclizine 25 mg tablet 25 mg PO TID PRN #20 tab 11/09/20 ibuprofen 600 mg tablet 600 mg PO Q8H PRN #20 tab 02/06/21 medroxyprogesterone 10 mg tablet 10 mg PO DAILY #10 tab 04/17/21 (Provera) acetaminophen 325 mg tablet 650 mg PO Q4H PRN #20 tab 05/06/21 (Tylenol) ciprofloxacin HCl 500 mg tablet 500 mg PO BID #14 tab 05/06/21 phenazopyridine 200 mg tablet 200 mg PO TID PRN #10 tab 05/06/21 (Pyridium) <Swetha Messer NP - Last Filed: 05/06/21 16:49> Allergies/Adverse reactions: Allergies Allergy/AdvReac Type Severity Reaction Status Date / Time aspirin Allergy Intermediate rash Verified 04/17/21 10:53 <Swetha Messer NP - Last Filed: 05/06/21 16:49> Review of Systems Review of Systems: Yes all other systems are reviewed and are negative <Swetha Messer NP - Last Filed: 05/06/21 16:49> Constitutional: Constitutional: Reports no additional constitutional complaints, Denies body ache(s), Denies chills, Denies fever(s), Denies headache(s) and Denies weakness <Swetha Messer NP - Last Filed: 05/06/21 16:49> Eyes: Eyes: Reports no additional eye complaints and Denies change in vision <Swetha Messer NP - Last Filed: 05/06/21 16:49> ENT: Reports system reviewed and no additional complaints, except as documented, Denies dizziness, Denies headache(s), Denies nasal congestion, Denies nasal discharge and Denies neck pain <Swetha Messer NP - Last Filed: 05/06/21 16:49> Cardiovascular: Cardiovascular: Reports no additional cardiovascular complaints, Denies chest pain, Denies leg edema and Denies dyspnea <MARINA Richard Last Filed: 05/06/21 16:49> Respiratory: Respiratory: Reports no additional respiratory complaints, Denies cough and Denies dyspnea <Swetha Messer NP - Last Filed: 05/06/21 16:49> Gastrointestinal: Gastrointestinal: Reports no additional gastrointestinal complaints, Denies abdominal pain, Denies diarrhea, Denies nausea and Denies vomiting <Swetha Messer NP - Last Filed: 05/06/21 16:49> Genitourinary: Genitourinary: Reports no additional female genitourinary complaints, Denies hematuria, Reports dysuria, Denies pelvic pain, Denies urinary incontinence, Denies urinary hesitancy, Denies urinary urgency and Denies vaginal discharge <Swetha Messer NP - Last Filed: 05/06/21 16:49> Musculoskeletal: Musculoskeletal: Reports no additional musculoskeletal complaints, Reports back pain, Denies arthralgias, Denies joint swelling, Denies neck pain, Denies numbness and Denies tingling <Swetha Messer NP - Last Filed: 05/06/21 16:49> Integumentary/Breasts: Skin/Breast: Reports system reviewed and no additional complaints, except as docu and Denies rash <Swetha Messer NP - Last Filed: 05/06/21 16:49> Neurologic: Reports system reviewed and no additional complaints, except as documented, Denies Abnormal speech present, Denies dizziness, Denies headache(s), Denies numbness, Denies tingling and Denies weakness <Swetha Messer NP - Last Filed: 05/06/21 16:49> PMF Past Medical History Attestation statement: The following information was validated with the patient. <Swetha Messer NP - Last Filed: 05/06/21 16:49> Source: old records reviewed and nursing notes reviewed <Swetha Messer NP - Last Filed: 05/06/21 16:49> Medical History: Medical History Asthma Myofascial pain syndrome Numbness in both hands Polyarthritis Rheumatoid arthritis <Swetha Messer NP - Last Filed: 05/06/21 16:49> Surgical History: Surgical History H/O breast biopsy H/O shoulder surgery Hx of section Hx of cholecystectomy <Swetha Messer NP - Last Filed: 05/06/21 16:49> Family History Family History: Family History Maternal Grandmother Diabetes Father HTN (hypertension) Mother HTN (hypertension) <Swetha Messer NP - Last Filed: 05/06/21 16:49> Social History Social History: Social History Alcohol intake: never Patient Tobacco Use Status: Never used Tobacco Advance Directives: No Advance Directives Information Provided: No Gender identity: Female <Swetha Messer NP - Last Filed: 05/06/21 16:49> Physical Exam Vital Signs: Vital Signs: Last Vital Signs Temp 98.1 F 05/06/21 15:18 Pulse 109 H 05/06/21 15:18 BP 144/90 H 05/06/21 15:18 Pulse Ox 100 05/06/21 15:18 BMI result Body Mass Index 35.9 <Swetha Messer NP - Last Filed: 05/06/21 16:49> Vital Signs: Last Vital Signs Temp 98.1 F 05/06/21 15:18 Pulse 109 H 05/06/21 15:18 BP 144/90 H 05/06/21 15:18 Pulse Ox 100 05/06/21 15:18 BMI result Body Mass Index 35.9 <Douglas Nick MD - Last Filed: 05/08/21 07:00> Const: General: cooperative, healthy appearing, comfortable and no acute distress <Swetha Messer NP - Last Filed: 05/06/21 16:49> Orientation/consciousness: patient oriented x3 <Swetha Messer NP - Last Filed: 05/06/21 16:49> Limitations: no limitations <Swetha Messer NP - Last Filed: 05/06/21 16:49> HENMT: Head: Yes normal to inspection <Swetha Messer NP - Last Filed: 05/06/21 16:49> Ears: hearing grossly normal bilaterally <Swetha Messer AGRICULTURE SPECIALIST - Last Filed: 05/06/21 16:49> General nose exam: Normal external nose present <Swetha Messer AGRICULTURE SPECIALIST - Last Filed: 05/06/21 16:49> Face and sinus: Yes normal facial exam <Swetha Messer AGRICULTURE SPECIALIST - Last Filed: 05/06/21 16:49> Mouth: Normal oral and palatal mucosa present <Swetha Messer AGRICULTURE SPECIALIST - Last Filed: 05/06/21 16:49> Throat: Yes posterior oropharynx normal <Swetha Messer AGRICULTURE SPECIALIST - Last Filed: 05/06/21 16:49> Eyes: General: appearance normal, both eyes and all related structures <Swetha Messer AGRICULTURE SPECIALIST - Last Filed: 05/06/21 16:49> Pupils: Equal, round and reactive pupils present <Swetha Messer NP - Last Filed: 05/06/21 16:49> Neck: Neck: Yes normal visual inspection <Swetha Messer AGRICULTURE SPECIALIST - Last Filed: 05/06/21 16:49> Chest: Chest palpation & inspection: normal inspection of the chest <Swetha Messer AGRICULTURE SPECIALIST - Last Filed: 05/06/21 16:49> Resp: Effort & Inspection: normal respiratory effort <Swetha Messer AGRICULTURE SPECIALIST - Last Filed: 05/06/21 16:49> Auscultation: clear to auscultation bilaterally <Swetha Messer AGRICULTURE SPECIALIST - Last Filed: 05/06/21 16:49> Cardio: Rate: regular rate <Swetha Messer AGRICULTURE SPECIALIST - Last Filed: 05/06/21 16:49> Rhythm: regular rhythm <Swetha Messer AGRICULTURE SPECIALIST - Last Filed: 05/06/21 16:49> Peripheral pulses: Peripheral pulses 2+ throughout <Swetha Messer AGRICULTURE SPECIALIST - Last Filed: 05/06/21 16:49> GI: Inspection: Yes normal to inspection <Swetha Messer NP - Last Filed: 05/06/21 16:49> Palpation (GI): Soft to palpation and nontender <Swetha Messer NP - Last Filed: 05/06/21 16:49> Auscultation: normal bowel sounds <Swetha Messer NP - Last Filed: 05/06/21 16:49> : General: Yes no CVA tenderness <Swetha Messer NP - Last Filed: 05/06/21 16:49> Back/Spine/Pelvis: Other: Tenderness to the low lumbar soft tissue area with no midline tenderness, step-offs deformities. No flank pain or CVA tenderness <Swetha Messer AGRICULTURE SPECIALIST - Last Filed: 05/06/21 16:49> Back: no CVA tenderness <Swetha Messer NP - Last Filed: 05/06/21 16:49> Thoracic/Lumbar Spine: thoracic and lumbar spine normal to inspection <Swetha Messer NP - Last Filed: 05/06/21 16:49> Skin: General skin exam: no rashes or lesions noted <Swetha Messer NP - Last Filed: 05/06/21 16:49> Neuro: General: patient oriented x3, no focal motor deficits and normal sensation to monofilament <Swetha Messer NP - Last Filed: 05/06/21 16:49> Cranial nerves: Yes CN's II-XII intact bilaterally, Yes Equal, round and reactive pupils present, Yes Bilaterally intact EOM present, Yes Nystagmus not present, Yes Normal facial strength present and Yes Midline tongue present <Swetha Messer NP - Last Filed: 05/06/21 16:49> Cognition (Neuro): normal cognition <Swetha Messer AGRICULTURE SPECIALIST - Last Filed: 05/06/21 16:49> Speech: No Abnormal speech present <Swetha Messer NP - Last Filed: 05/06/21 16:49> Gait exam (Neuro): Normal gait present <Swetha Messer NP - Last Filed: 05/06/21 16:49> Motor exam (neuro): 5/5 motor strength present throughout <Swetha Messer NP - Last Filed: 05/06/21 16:49> Sensory Exam: Normal double simultaneous stimulation for sensation <Swetha Messer NP - Last Filed: 05/06/21 16:49> Deep tendon reflexes (DTR's): Right patellar reflex intensity grade: 2+ and Left patellar reflex intensity grade: 2+ <Swetha Messer NP - Last Filed: 05/06/21 16:49> Extrem: General: Yes normal to inspection <Swetha Messer NP - Last Filed: 05/06/21 16:49> Course Course Course Narrative: 26-year-old female here with reports of low back pain with dysuria since Friday. No CVA tenderness or flank tenderness on exam. Patient is afebrile, nontoxic appearing. Less likely pyelonephritis. UA is consistent with UTI. Will treat with course of antibiotics. Reviewed worrisome signs and symptoms of when to return to the emergency department. Comfortable discharge home. <Swetha Messer NP - Last Filed: 05/06/21 16:49> MDM - Female Genitourinary Differential Diagnosis Differential diagnosis: Likely urinary tract infection <Swetha Messer NP - Last Filed: 05/06/21 16:49> Medical Records Attestation: I reviewed the patient's medical records. <Swetha Messer NP - Last Filed: 05/06/21 16:49> Lab Data Attestation: I reviewed the patient's lab results. <Swetha Messer NP - Last Filed: 05/06/21 16:49> Labs: Lab Results 05/06/21 05/06/21 Range/Units 15:36 15:36 Urine Color YELLOW Urine Appearance HAZY Urine pH 6.0 (5.0-8.0) Ur Specific [place] 1.025 (1.005-1.025) Urine Protein 2+ H (NEG-TRACE) MG/DL Urine Glucose (UA) NEG (NEG) MG/DL Urine Ketones NEG (NEG) MG/DL Urine Blood 3+ H (NEG) Urine Nitrite POS H (NEG) Ur Leukocyte Esterase 2+ H (NEG) Urine RBC 5-9 H (0) /HPF Urine WBC 76-150 H (0-4) /HPF Ur Squamous Epith Cells 2+ /LPF Urine Bacteria 2+ /LPF Urine Test NEGATIVE (NEGATIVE) <Swetha Messer NP - Last Filed: 05/06/21 16:49> Lab Results 05/06/21 05/06/21 Range/Units 15:36 15:36 Urine Color YELLOW Urine Appearance HAZY Urine pH 6.0 (5.0-8.0) Ur Specific [place] 1.025 (1.005-1.025) Urine Protein 2+ H (NEG-TRACE) MG/DL Urine Glucose (UA) NEG (NEG) MG/DL Urine Ketones NEG (NEG) MG/DL Urine Blood 3+ H (NEG) Urine Nitrite POS H (NEG) Ur Leukocyte Esterase 2+ H (NEG) Urine RBC 5-9 H (0) /HPF Urine WBC 76-150 H (0-4) /HPF Ur Squamous Epith Cells 2+ /LPF Urine Bacteria 2+ /LPF Urine Test NEGATIVE (NEGATIVE) <Douglas Nick MD - Last Filed: 05/08/21 07:00> Discharge Plan Discharge Clinical Impression: Urinary tract infection <Swetha Messer NP - Last Filed: 05/06/21 16:49> Patient Disposition: Home, Self-Care <Swetha Messer NP - Last Filed: 05/06/21 16:49> Instructions: Urinary Tract Infection in Women (ED) <Swetha Messer NP - Last Filed: 05/06/21 16:49> Additional Instructions: Start antibiotics right away Increase fluids, rest Return for fever or vomiting or worsening pain <Swetha Messer NP - Last Filed: 05/06/21 16:49> Prescriptions: New ciprofloxacin HCl 500 mg tablet 500 mg PO BID Qty: 14 RF: 0 phenazopyridine [Pyridium] 200 mg tablet 200 mg PO TID PRN (Reason: pain) Qty: 10 RF: 0 acetaminophen [Tylenol] 325 mg tablet 650 mg PO Q4H PRN (Reason: pain) Qty: 20 RF: 0 No Action Cimzia 400 mg/2 mL (200 mg/mL x 2) syringe kit 400 mg subcut Q2W Qty: 1 RF: 0 oavocscxmi-enowcmhmxnnjc-xagw [Fioricet] 50-300-40 mg capsule 1 cap PO Q6H PRN (Reason: pain) Qty: 10 RF: 0 pantoprazole [Protonix] 40 mg tablet,delayed release (DR/EC) 40 mg PO DAILY Qty: 14 RF: 0 meclizine 25 mg tablet 25 mg PO TID PRN (Reason: dizziness) Qty: 20 RF: 0 cetirizine 10 mg tablet 10 mg PO DAILY Qty: 30 RF: 0 ibuprofen 600 mg tablet 600 mg PO Q8H PRN (Reason: pain) Qty: 20 RF: 0 acetaminophen 650 mg/20.3 mL solution 650 mg PO Q6H PRNRF: 0 albuterol sulfate 90 mcg/actuation HFA aerosol inhaler 2 puff inhalation Q6H PRNRF: 0 cholecalciferol (vitamin D3) 25 mcg (1,000 unit) capsule 25 mcg PO DAILY Qty: 30 RF: 5 duloxetine [Cymbalta] 60 mg capsule,delayed release(DR/EC) 60 mg PO DAILY RF: 0 gabapentin 300 mg capsule 300 mg PO TID RF: 0 medroxyprogesterone [Provera] 10 mg tablet 10 mg PO DAILY Qty: 10 RF: 0 <Swetha Messer NP - Last Filed: 05/06/21 16:49> Referrals: Marzena Strong MD [Primary Care Provider] - 2 days <Swetha Messer NP - Last Filed: 05/06/21 16:49> Interventions: ED Discharge Assessment Last Done: 05/06/21 17:00 <Swetha Messer NP - Last Filed: 05/06/21 16:49> Discharge Date/Time: 05/06/21 17:00 <Swetha Messer NP - Last Filed: 05/06/21 16:49> Print Language: Panamanian <Swetha Messer NP - Last Filed: 05/06/21 16:49>
== END 2021-05-06 17:00 | disposition home or self-care (01) ==
LOC: HO.ED 16:56
PROVIDERS: Nurse Practitioner Family; Emergency Provider Emergency Medicine; PCP Internal Medicine
DX: N39.0 Urinary tract infection, site not specified (principal); R30.0 Dysuria; M54.50 Low back pain, unspecified; Z79.899 Other long term (current) drug therapy
CPT/HCPCS: 81001; 81025; 99283

== ENCOUNTER 2021-05-07 13:03 | Emergency (ER) | payer MEDICAID, SELFPAY ==
[2021-05-07 13:09] VITALS: BP 128/89; PULSE 112; RESP 19; TEMP 36.8; O2SAT 95
[2021-05-07 13:33] LABS: MANUAL DIFF FLAG NO
[2021-05-07 13:38] LABS: Basophils Percent Auto 0.4 % (0-2); Eosinophils Percent Auto 0.4 % (0-4); Hematocrit 38.7 % (37.0-47.0); Hemoglobin 12.7 g/dl (12.0-16.0); Imm Gran Abs Auto 0.04 X10*3/uL (0.00-0.03); Imm Gran Pct Auto 0.5 % (0.0-0.4); Lymphocytes Absolute Auto 1.2 X10*3/uL (1.2-4.9); Lymphocytes Percent Auto 14.8 % (20-40); Mean Corpuscular HGB Conc 32.8 g/dl (31.0-35.0); Mean Corpuscular Hemoglobin 28.3 pg (27.0-33.0); Mean Corpuscular Volume 86.2 fL (80.0-98.0); Mean Platelet Volume 10.2 fL (9.4-12.3); Monocytes Absolute Auto 0.4 X10*3/uL (0.1-1.2); Monocytes Percent Auto 4.4 % (2-11); Neutrophils Absolute Auto 6.7 x10*3/uL (2.0-8.3); Neutrophils Percent Auto 79.5 % (45-73); Platelet Count 251 X10*3/uL (160-400); Red Blood Count 4.49 X10*6/uL (4.20-5.50); Red Cell Distribution Width 12.8 % (11.0-16.0); White Blood Count 8.4 X10*3/uL (4.8-10.8)
[2021-05-07 13:55] LABS: Alanine Aminotransferase 35 U/L (0-31); Albumin Level 4.1 g/dL (3.5-5.0); Alkaline Phosphatase 92 U/L (39-117); Anion Gap 13 (12-20); Aspartate Amino Transferase 24 U/L (5-31); Bilirubin Direct 0.6 mg/dL (0.0-0.5); Bilirubin Total 1.6 mg/dL (0.0-1.0); Blood Urea Nitrogen 8 mg/dL (9-16); Calcium 9.5 mg/dL (8.4-10.2); Carbon Dioxide 25 mmol/L (22-29); Chloride 105 mmol/L (96-108); Creatinine Clr Calc Pharmacy 7.6; Estimated Glomerular Filt Rate > 60; Glucose Random 135 mg/dL (60-115); Lipase 8 U/L (8-78); Sodium 139 mmol/L (135-145); Total Protein 7.3 g/dL (6.5-8.0)
[2021-05-07 14:00] LABS: Appearance Urine CLOUDY; Leukocyte Esterase Urine 3+ (NEG); Nitrite Urine POS (NEG); Specific Gravity - Urine 1.015 (1.005-1.025); UACC Culture Trigger YES; Urine Blood 1+ (NEG); Urine Protein 3+ MG/DL (NEG-TRACE)
[2021-05-07 14:08] LABS: Color Urine AMBER
[2021-05-07 14:09] LABS: Bacteria Urine 2+ /LPF; Squamous Epithelial Cell Urine 2+ /LPF; UACC CULT YES; WBC Urine TNTC /HPF (0-4)
--- NOTE | 2021-05-07 16:46 | ED_ITS ---
HPI - Female Genitourinary General Chief complaint: Nausea/Vomiting/Diarrhea Stated complaint: back pain Time Seen by Provider: 05/07/21 16:39 Source: patient Mode of arrival: ambulatory Limitations: no limitations History of Present Illness HPI Narrative: Patient no significant past medical history being having urinary complaints dysuria frequency and bilateral flank pain for last 5 days started with right flank pain and she had dysuria and frequency has chills and low-grade fever was seen here yesterday prescribed ciprofloxacin which she could not get at the pharmacy was not given any antibiotics in the ER now patient feel nauseated and vomiting for last 24 hours Related Data Home Medications Medication Instructions Recorded Confirmed acetaminophen 650 mg/20.3 mL oral 650 mg PO Q6H PRN 04/21/20 04/17/21 solution albuterol sulfate 90 mcg/actuation 2 puff INHALATION Q6H PRN 04/21/20 04/17/21 aerosol inhaler duloxetine 60 mg capsule,delayed 60 mg PO DAILY 04/17/21 04/17/21 release (Cymbalta) gabapentin 300 mg capsule 300 mg PO TID 04/17/21 04/17/21 Previous Rx's Medication Instructions Recorded cetirizine 10 mg tablet 10 mg PO DAILY #30 tab 05/04/20 cholecalciferol (vitamin D3) 25 25 mcg PO DAILY #30 cap 05/16/20 mcg (1,000 unit) capsule certolizumab pegol (Cimzia) 400 mg (2 mL) SUBCUT Q2W #1 ea 06/14/20 zkmvdxzufg-fitzvildpcqoh-loiwsewm 1 cap PO Q6H PRN #10 cap 09/18/20 50 mg-300 mg-40 mg capsule (Fioricet) pantoprazole 40 mg tablet,delayed 40 mg PO DAILY #14 tab 10/08/20 release (Protonix) meclizine 25 mg tablet 25 mg PO TID PRN #20 tab 11/09/20 ibuprofen 600 mg tablet 600 mg PO Q8H PRN #20 tab 02/06/21 medroxyprogesterone 10 mg tablet 10 mg PO DAILY #10 tab 04/17/21 (Provera) acetaminophen 325 mg tablet 650 mg PO Q4H PRN #20 tab 05/06/21 (Tylenol) ciprofloxacin HCl 500 mg tablet 500 mg PO BID #14 tab 05/06/21 phenazopyridine 200 mg tablet 200 mg PO TID PRN #10 tab 05/06/21 (Pyridium) Allergies Allergy/AdvReac Type Severity Reaction Status Date / Time aspirin Allergy Intermediate rash Verified 04/17/21 10:53 Review of Systems Review of Systems: Yes all other systems are reviewed and are negative [facility] Past Medical History Medical History Asthma Myofascial pain syndrome Numbness in both hands Polyarthritis Rheumatoid arthritis Surgical History H/O breast biopsy H/O shoulder surgery Hx of section Hx of cholecystectomy Family History Family History Maternal Grandmother Diabetes Father HTN (hypertension) Mother HTN (hypertension) Social History Social History Alcohol intake: never Patient Tobacco Use Status: Never used Tobacco Advance Directives: No Advance Directives Information Provided: No Gender identity: Female Physical Exam Vital Signs: Vital Signs: Last Vital Signs Temp 99.2 F 05/07/21 21:04 Pulse 106 H 05/07/21 21:04 Resp 16 05/07/21 21:04 BP 108/77 05/07/21 21:04 Pulse Ox 98 05/07/21 21:04 BMI result Body Mass Index 1.8 Appearance: Alert. Oriented X3. And mild distress. Eyes: No pallor or icterus ENT: Pharynx normal. Oral Mucosa moist Neck: Normal inspection. Neck supple. CVS: Normal heart rate and rhythm. Pulses normal. Respiratory: No respiratory distress. Equal air entry bilateral, no wheezing/rales/rhonchi Abdomen: Soft and nontender. Bowel sounds are present, no mass palpable, right CVA tenderness++ Skin: Skin warm and dry. Normal skin color. Normal skin turgor. Extremities: No lower extremity edema. No calf tenderness Neuro: Oriented X 3. MDM - Female Genitourinary Lab Data Result diagrams: 05/07/21 13:27 05/07/21 13:27 Labs: Lab Results 05/07/21 05/07/21 05/07/21 Range/Units 13:27 13:27 13:50 WBC 8.4 (4.8-10.8) X10*3/uL RBC 4.49 (4.20-5.50) X10*6/uL Hgb 12.7 (12.0-16.0) g/dl Hct 38.7 (37.0-47.0) % MCV 86.2 (80.0-98.0) fL MCH 28.3 (27.0-33.0) pg MCHC 32.8 (31.0-35.0) g/dl RDW 12.8 (11.0-16.0) % Plt Count 251 (160-400) X10*3/uL MPV 10.2 (9.4-12.3) fL Immature Gran % (Auto) 0.5 H (0.0-0.4) % Neut % (Auto) 79.5 H (45-73) % Lymph % (Auto) 14.8 L (20-40) % [place] % (Auto) 4.4 (2-11) % Eos % (Auto) 0.4 (0-4) % Baso % (Auto) 0.4 (0-2) % Lymph # (Auto) 1.2 (1.2-4.9) X10*3/uL [place] # (Auto) 0.4 (0.1-1.2) X10*3/uL Eos # (Auto) 0.0 (0.0-0.4) X10*3/uL Baso # (Auto) 0.0 (0.0-0.2) X10*3/uL Abs Immat Gran (auto) 0.04 H (0.00-0.03) X10*3/uL Absolute Neuts (auto) 6.7 (2.0-8.3) x10*3/uL Absolute Nucleated RBC 0.000 (0.0-0.012) X10*3/uL Nucleated RBC % (auto) 0.0 (0.0-0.2) /100WBC Sodium 139 (135-145) mmol/L Potassium 4.0 (3.3-5.1) mmol/L Chloride 105 (96-108) mmol/L Carbon Dioxide 25 (22-29) mmol/L Anion Gap 13 (12-20) BUN 8 L (9-16) mg/dL Creatinine 0.79 (0.5-1.4) mg/dL Estim Creat Clear Calc 7.6 Estimated GFR > 60 Random Glucose 135 H (60-115) mg/dL Calcium 9.5 (8.4-10.2) mg/dL Total Bilirubin 1.6 H (0.0-1.0) mg/dL Direct Bilirubin 0.6 H (0.0-0.5) mg/dL AST 24 (5-31) U/L ALT 35 H (0-31) U/L Alkaline Phosphatase 92 (39-117) U/L Total Protein 7.3 (6.5-8.0) g/dL Albumin 4.1 (3.5-5.0) g/dL Lipase 8 (8-78) U/L Urine Color SD Urine Appearance CLOUDY Urine pH 5.0 (5.0-8.0) Ur Specific [place] 1.015 (1.005-1.025) Urine Protein 3+ H (NEG-TRACE) MG/DL Urine Glucose (UA) SEE NOTE (NEG) MG/DL Urine Ketones SEE NOTE (NEG) MG/DL Urine Blood 1+ H (NEG) Urine Nitrite POS H (NEG) Ur Leukocyte Esterase 3+ H (NEG) Urine RBC 5-9 H (0) /HPF Urine WBC TNTC H (0-4) /HPF Ur Squamous Epith Cells 2+ /LPF Urine Bacteria 2+ /LPF Discharge Plan Discharge Clinical Impression: UTI (urinary tract infection) Qualifiers: Urinary tract infection type: acute cystitis Hematuria presence: without jonathan turia Qualified Code(s): N30.00 - Acute cystitis without hematuria Patient Disposition: Home, Self-Care Instructions: Urinary Tract Infection in Women (ED) Additional Instructions: Drink plenty of fluids Continue antibiotic as prescribed and follow with PCP. Report to the ER if increased vomiting or fever Prescriptions: No Action Cimzia 400 mg/2 mL (200 mg/mL x 2) syringe kit 400 mg subcut Q2W Qty: 1 RF: 0 upvzsryhqn-drseczxyobcbx-suhx [Fioricet] 50-300-40 mg capsule 1 cap PO Q6H PRN (Reason: pain) Qty: 10 RF: 0 pantoprazole [Protonix] 40 mg tablet,delayed release (DR/EC) 40 mg PO DAILY Qty: 14 RF: 0 meclizine 25 mg tablet 25 mg PO TID PRN (Reason: dizziness) Qty: 20 RF: 0 cetirizine 10 mg tablet 10 mg PO DAILY Qty: 30 RF: 0 ciprofloxacin HCl 500 mg tablet 500 mg PO BID Qty: 14 RF: 0 phenazopyridine [Pyridium] 200 mg tablet 200 mg PO TID PRN (Reason: pain) Qty: 10 RF: 0 acetaminophen [Tylenol] 325 mg tablet 650 mg PO Q4H PRN (Reason: pain) Qty: 20 RF: 0 ibuprofen 600 mg tablet 600 mg PO Q8H PRN (Reason: pain) Qty: 20 RF: 0 acetaminophen 650 mg/20.3 mL solution 650 mg PO Q6H PRNRF: 0 albuterol sulfate 90 mcg/actuation HFA aerosol inhaler 2 puff inhalation Q6H PRNRF: 0 cholecalciferol (vitamin D3) 25 mcg (1,000 unit) capsule 25 mcg PO DAILY Qty: 30 RF: 5 duloxetine [Cymbalta] 60 mg capsule,delayed release(DR/EC) 60 mg PO DAILY RF: 0 gabapentin 300 mg capsule 300 mg PO TID RF: 0 medroxyprogesterone [Provera] 10 mg tablet 10 mg PO DAILY Qty: 10 RF: 0 Interventions: ED Discharge Assessment Last Done: 05/07/21 21:08 Discharge Date/Time: 05/07/21 21:09 Print Language: Polish
[2021-05-07] MEDS: 0.9 % Sodium Chloride 1,000 ML 999 ML IV (17:07)
[2021-05-07] MEDS: ondansetron HCL 4 MG/2 ML VIAL IVPUSH (17:08)
[2021-05-07] MEDS: cefTRIAXone sodium 1 GM in 0.9 % Sodium Chloride 50 ML IV (17:09)
[2021-05-07 19:32] VITALS: BP 121/85; PULSE 108; RESP 18; TEMP 37.7; O2SAT 98
[2021-05-07 21:04] VITALS: BP 108/77; PULSE 106; RESP 16; TEMP 37.3; O2SAT 98
== END 2021-05-07 21:09 | disposition home or self-care (01) ==
PROVIDERS: Emergency Provider Internal Medicine; PCP Internal Medicine
DX: N39.0 Urinary tract infection, site not specified (principal); R11.2 Nausea with vomiting, unspecified
CPT/HCPCS: 36415; 80048; 80076; 81001; 83690; 85025; 87086; 87088; 87186; 96361; 96374; 96375; 99284; J0696; J2405

== ENCOUNTER 2021-09-02 09:08 | Emergency (ER) | payer MEDICAID, SELFPAY ==
--- NOTE | ~2021-09-02 | CT_ITS ---
EXAMINATION: CT ABDOMEN AND PELVIS WITHOUT CONTRAST CLINICAL INFORMATION: Lower abdominal pain nausea COMPARISON: CT scan February 2021 TECHNIQUE: Multidetector volumetric imaging was performed from the superior aspect of the liver through the pubic symphysis. Sagittal and coronal reformatted images were obtained on the technologist's workstation. This CT examination was performed using dose optimization techniques as appropriate, variously including the following: *Automated exposure control *Adjustment of mA and/or kV according to patient size (this includes techniques or standardized protocols for targeted exams where dose is matched to indication/reason for exam; i.e. extremities or head) *Use of iterative reconstruction technique DLP: 899 mGy-cm FINDINGS: LUNG BASES: The visualized lung bases are unremarkable. LIVER, GALLBLADDER, AND BILIARY TREE: Diffuse fatty infiltration of the liver without mass. No intrahepatic or extrahepatic biliary dilatation. Liver measures 22 cm craniocaudal unchanged. Status post cholecystectomy with surgical clips unchanged. PANCREAS: Unremarkable. SPLEEN: Unremarkable. ADRENAL GLANDS: Unremarkable. KIDNEYS AND URETERS: The kidneys are normal in size, shape, and attenuation. No hydronephrosis, hydroureter, or calculi seen. No perinephric stranding. BLADDER: Unremarkable. GASTROINTESTINAL TRACT: Moderate hiatal hernia unchanged. Small and large bowel normal. Appendix normal. ABDOMINAL WALL: No significant hernia is appreciated. LYMPH NODES: Normal. VASCULAR: Unremarkable. PELVIC VISCERA: Unremarkable. OSSEOUS STRUCTURES: Unremarkable. CT/CT abdomen pelvis wo con IMPRESSION: No acute abnormality. No change. Hepatic steatosis. Moderate hiatal hernia. No specific etiology for patient's reported symptoms Fleischner guidelines were followed.
[2021-09-02 09:43] VITALS: BP 130/88; PULSE 82; RESP 16; TEMP 35.8; O2SAT 98; BMI 37.8
--- NOTE | 2021-09-02 11:10 | ED_ITS ---
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 Mode of arrival: ambulatory Limitations: no limitations History of Present Illness MD elicited complaint: abdominal pain Pertinent past history: none Onset (ago): day(s) (3) Pain Consistency: constant Location: suprapubic and pelvis Severity: moderate Quality: cramping Radiation: none Migration to: no migration Exacerbating factors: movement Relieving factors: nothing Associated symptoms: nausea Related Data Home Medications Medication Instructions Recorded Confirmed acetaminophen 650 mg/20.3 mL oral 650 mg PO Q6H PRN 04/21/20 04/17/21 solution albuterol sulfate 90 mcg/actuation 2 puff INHALATION Q6H PRN 04/21/20 04/17/21 aerosol inhaler duloxetine 60 mg capsule,delayed 60 mg PO DAILY 04/17/21 04/17/21 release (Cymbalta) gabapentin 300 mg capsule 300 mg PO TID 04/17/21 04/17/21 Previous Rx's Medication Instructions Recorded cetirizine 10 mg tablet 10 mg PO DAILY #30 tab 05/04/20 cholecalciferol (vitamin D3) 25 25 mcg PO DAILY #30 cap 05/16/20 mcg (1,000 unit) capsule certolizumab pegol (Cimzia) 400 mg (2 mL) SUBCUT Q2W #1 ea 06/14/20 sxmhftqowa-dkmcwbuxcvqqr-ghudrlls 1 cap PO Q6H PRN #10 cap 09/18/20 50 mg-300 mg-40 mg capsule (Fioricet) pantoprazole 40 mg tablet,delayed 40 mg PO DAILY #14 tab 10/08/20 release (Protonix) meclizine 25 mg tablet 25 mg PO TID PRN #20 tab 11/09/20 ibuprofen 600 mg tablet 600 mg PO Q8H PRN #20 tab 02/06/21 medroxyprogesterone 10 mg tablet 10 mg PO DAILY #10 tab 04/17/21 (Provera) acetaminophen 325 mg tablet 650 mg PO Q4H PRN #20 tab 05/06/21 (Tylenol) ciprofloxacin HCl 500 mg tablet 500 mg PO BID #14 tab 05/06/21 phenazopyridine 200 mg tablet 200 mg PO TID PRN #10 tab 05/06/21 (Pyridium) cyclobenzaprine 10 mg tablet 10 mg PO TID PRN #14 tab 09/02/21 ondansetron 4 mg disintegrating 4 mg PO Q8H PRN #20 tab 09/02/21 tablet Allergies Allergy/AdvReac Type Severity Reaction Status Date / Time aspirin Allergy Intermediate rash Verified 04/17/21 10:53 Review of Systems Review of Systems Constitutional : No Weight loss, No Fever, No Chills ENT/Mouth : No sore throat, No Rhinorrhea Eyes: No Swelling, No Redness Cardiovascular : No Chest Pain, No SOB, NoEdema Respiratory : No Cough, No Sputum, No Wheezing Gastrointestinal : Positive Nausea, no Vomiting, no Diarrhea, positive abdominal Pain, No Hematochezia, No Melena Genitourinary : No Dysuria, No Urinary Frequency, No Hematuria, No Urgency Musculoskeletal : No joint pain, No Myalgias, No Joint Swelling Skin : No Skin Lesions, No rash Neuro : No Weakness, No Numbness, No Dizziness, No Headache Psych : No Anxiety/Panic, No Depression Heme/Lymph: No Bruising, No Lymphadenopathy Endocrine : No Polyuria, No Polydipsia All other systems reviewed and are negative. [facility] Past Medical History Attestation statement: The following information was validated with the patient. Medical History Asthma Myofascial pain syndrome Numbness in both hands Polyarthritis Rheumatoid arthritis Surgical History H/O breast biopsy H/O shoulder surgery Hx of section Hx of cholecystectomy Family History Family History Maternal Grandmother Diabetes Father HTN (hypertension) Mother HTN (hypertension) Social History Social History Alcohol intake: never Patient Tobacco Use Status: Never used Tobacco Advance Directives: No Advance Directives Information Provided: No Gender identity: Female Physical Exam ED Vital Signs: Vital Signs - 24 hr 09/02/21 09:43 Temperature 96.4 F L Pulse Rate 82 Respiratory Rate 16 Blood Pressure 130/88 Pulse Oximetry 98 BMI result Body Mass Index 37.8 Appearance: Alert. Oriented X3. No acute distress. Eyes: Pupils equal, round and reactive to light. ENT: Pharynx normal. Neck: Normal inspection. Neck supple. CVS: Normal heart rate and rhythm. Pulses normal. Respiratory: No respiratory distress. Breath sounds normal. Abdomen: Soft and mild suprapubic ttp no rebound or guarding Skin: Skin warm and dry. Normal skin color. Normal skin turgor. Extremities: No lower extremity edema. No calf ttp Neuro: Oriented X 3. No motor deficit. No sensory deficit. Course Course Course Narrative: negative findings on today's exam with 3 days of symptoms will send home with motrin and flexeril MDM - Abdominal Pain MDM Narrative Medical decision making narrative: 26 yo female with hx of uterine fibroids, obesity here with c/o lower abdominal pain x 3 days with associated nasuea at this time will obtain labs, UA, CT scan for diverticulitis - dispo per results and fidnings. Lab Data Result diagrams: 09/02/21 11:31 09/02/21 11:31 Labs: Lab Results 09/02/21 09/02/21 09/02/21 Range/Units 11:18 11:18 11:31 WBC 7.2 (4.8-10.8) X10*3/uL RBC 4.99 (4.20-5.50) X10*6/uL Hgb 14.3 (12.0-16.0) g/dl Hct 43.6 (37.0-47.0) % MCV 87.4 (80.0-98.0) fL MCH 28.7 (27.0-33.0) pg MCHC 32.8 (31.0-35.0) g/dl RDW 13.5 (11.0-16.0) % Plt Count 216 (160-400) X10*3/uL MPV 11.0 (9.4-12.3) fL Immature Gran % (Auto) 0.3 (0.0-0.4) % Neut % (Auto) 51.3 (45-73) % Lymph % (Auto) 37.3 (20-40) % [place] % (Auto) 7.5 (2-11) % Eos % (Auto) 2.8 (0-4) % Baso % (Auto) 0.8 (0-2) % Lymph # (Auto) 2.7 (1.2-4.9) X10*3/uL [place] # (Auto) 0.5 (0.1-1.2) X10*3/uL Eos # (Auto) 0.2 (0.0-0.4) X10*3/uL Baso # (Auto) 0.1 (0.0-0.2) X10*3/uL Abs Immat Gran (auto) 0.02 (0.00-0.03) X10*3/uL Absolute Neuts (auto) 3.7 (2.0-8.3) x10*3/uL Absolute Nucleated RBC 0.000 (0.0-0.012) X10*3/uL Nucleated RBC % (auto) 0.0 (0.0-0.2) /100WBC Sodium (135-145) mmol/L Potassium (3.3-5.1) mmol/L Chloride (96-108) mmol/L Carbon Dioxide (22-29) mmol/L Anion Gap (12-20) BUN (9-16) mg/dL Creatinine (0.5-1.4) mg/dL Estim Creat Clear Calc Estimated GFR Random Glucose (60-115) mg/dL Calcium (8.4-10.2) mg/dL Magnesium (1.6-2.6) mg/dL Total Bilirubin (0.0-1.0) mg/dL Direct Bilirubin (0.0-0.5) mg/dL AST (5-31) U/L ALT (0-31) U/L Alkaline Phosphatase (39-117) U/L Total Protein (6.5-8.0) g/dL Albumin (3.5-5.0) g/dL Lipase (8-78) U/L Urine Color YELLOW Urine Appearance CLEAR Urine pH 6.0 (5.0-8.0) Ur Specific [place] 1.025 (1.005-1.025) Urine Protein NEG (NEG-TRACE) MG/DL Urine Glucose (UA) NEG (NEG) MG/DL Urine Ketones NEG (NEG) MG/DL Urine Blood NEG (NEG) Urine Nitrite NEG (NEG) Ur Leukocyte Esterase NEG (NEG) Urine Test NEGATIVE (NEGATIVE) 09/02/21 Range/Units 11:31 WBC (4.8-10.8) X10*3/uL RBC (4.20-5.50) X10*6/uL Hgb (12.0-16.0) g/dl Hct (37.0-47.0) % MCV (80.0-98.0) fL MCH (27.0-33.0) pg MCHC (31.0-35.0) g/dl RDW (11.0-16.0) % Plt Count (160-400) X10*3/uL MPV (9.4-12.3) fL Immature Gran % (Auto) (0.0-0.4) % Neut % (Auto) (45-73) % Lymph % (Auto) (20-40) % [place] % (Auto) (2-11) % Eos % (Auto) (0-4) % Baso % (Auto) (0-2) % Lymph # (Auto) (1.2-4.9) X10*3/uL [place] # (Auto) (0.1-1.2) X10*3/uL Eos # (Auto) (0.0-0.4) X10*3/uL Baso # (Auto) (0.0-0.2) X10*3/uL Abs Immat Gran (auto) (0.00-0.03) X10*3/uL Absolute Neuts (auto) (2.0-8.3) x10*3/uL Absolute Nucleated RBC (0.0-0.012) X10*3/uL Nucleated RBC % (auto) (0.0-0.2) /100WBC Sodium 137 (135-145) mmol/L Potassium 4.7 (3.3-5.1) mmol/L Chloride 107 (96-108) mmol/L Carbon Dioxide 20 L (22-29) mmol/L Anion Gap 15 (12-20) BUN 8 L (9-16) mg/dL Creatinine 0.69 (0.5-1.4) mg/dL Estim Creat Clear Calc 124.4 Estimated GFR > 60 Random Glucose 89 (60-115) mg/dL Calcium 9.4 (8.4-10.2) mg/dL Magnesium 2.0 (1.6-2.6) mg/dL Total Bilirubin 1.4 H (0.0-1.0) mg/dL Direct Bilirubin 0.4 (0.0-0.5) mg/dL AST 38 H D (5-31) U/L ALT 57 H (0-31) U/L Alkaline Phosphatase 90 (39-117) U/L Total Protein 7.2 (6.5-8.0) g/dL Albumin 4.2 (3.5-5.0) g/dL Lipase 13 (8-78) U/L Urine Color Urine Appearance Urine pH (5.0-8.0) Ur Specific [place] (1.005-1.025) Urine Protein (NEG-TRACE) MG/DL Urine Glucose (UA) (NEG) MG/DL Urine Ketones (NEG) MG/DL Urine Blood (NEG) Urine Nitrite (NEG) Ur Leukocyte Esterase (NEG) Urine Test (NEGATIVE) Discharge Plan Discharge Clinical Impression: Abdominal pain Qualifiers: Abdominal location: lower abdomen, unspecified Qualified Code(s): R10.30 - Lower abdominal pain, unspecified Patient Disposition: Home, Self-Care Instructions: Abdominal Pain (ED) Additional Instructions: return to ED for any worsening symptoms or concerns Prescriptions: New cyclobenzaprine 10 mg tablet 10 mg PO TID PRN (Reason: muscle spasm) Qty: 14 0RF ondansetron 4 mg tablet,disintegrating 4 mg PO Q8H PRN (Reason: nausea and vomiting) Qty: 20 0RF No Action Cimzia 400 mg/2 mL (200 mg/mL x 2) syringe kit 400 mg subcut Q2W Qty: 1 0RF Rx Instructions: administer as 2 equally divided doses at 2 different sites in abdomen or thigh xhhbwvhfyy-wdhvskidfsuiq-sxeh [Fioricet] 50-300-40 mg capsule 1 cap PO Q6H PRN (Reason: pain) Qty: 10 0RF pantoprazole [Protonix] 40 mg tablet,delayed release (DR/EC) 40 mg PO DAILY Qty: 14 0RF meclizine 25 mg tablet 25 mg PO TID PRN (Reason: dizziness) Qty: 20 0RF cetirizine 10 mg tablet 10 mg PO DAILY Qty: 30 0RF ciprofloxacin HCl 500 mg tablet 500 mg PO BID Qty: 14 0RF phenazopyridine [Pyridium] 200 mg tablet 200 mg PO TID PRN (Reason: pain) Qty: 10 0RF acetaminophen [Tylenol] 325 mg tablet 650 mg PO Q4H PRN (Reason: pain) Qty: 20 0RF ibuprofen 600 mg tablet 600 mg PO Q8H PRN (Reason: pain) Qty: 20 0RF acetaminophen 650 mg/20.3 mL solution 650 mg PO Q6H PRN0RF albuterol sulfate 90 mcg/actuation HFA aerosol inhaler 2 puff inhalation Q6H PRN0RF cholecalciferol (vitamin D3) 25 mcg (1,000 unit) capsule 25 mcg PO DAILY Qty: 30 5RF duloxetine [Cymbalta] 60 mg capsule,delayed release(DR/EC) 60 mg PO DAILY 0RF gabapentin 300 mg capsule 300 mg PO TID 0RF medroxyprogesterone [Provera] 10 mg tablet 10 mg PO DAILY Qty: 10 0RF Stand Alone Forms: Work/School Release Print Language: Malagasy
[2021-09-02 11:25] LABS: Appearance Urine CLEAR; Color Urine YELLOW; Glucose Urine UA NEG (NEG); Leukocyte Esterase Urine NEG (NEG); Nitrite Urine NEG (NEG); Specific Gravity - Urine 1.025 (1.005-1.025); Urine Blood NEG (NEG); Urine Ketones NEG (NEG); Urine Protein NEG (NEG-TRACE)
[2021-09-02 11:26] LABS: Urine Pregnancy NEGATIVE (NEGATIVE)
[2021-09-02 11:27] LABS: UPreg QC Valid YES
[2021-09-02 11:35] LABS: MANUAL DIFF FLAG NO
[2021-09-02 11:47] LABS: Basophils Absolute Auto 0.1 X10*3/uL (0.0-0.2); Basophils Percent Auto 0.8 % (0-2); Eosinophils Absolute Auto 0.2 X10*3/uL (0.0-0.4); Eosinophils Percent Auto 2.8 % (0-4); Hematocrit 43.6 % (37.0-47.0); Hemoglobin 14.3 g/dl (12.0-16.0); Imm Gran Abs Auto 0.02 X10*3/uL (0.00-0.03); Imm Gran Pct Auto 0.3 % (0.0-0.4); Lymphocytes Absolute Auto 2.7 X10*3/uL (1.2-4.9); Lymphocytes Percent Auto 37.3 % (20-40); Mean Corpuscular HGB Conc 32.8 g/dl (31.0-35.0); Mean Corpuscular Hemoglobin 28.7 pg (27.0-33.0); Mean Corpuscular Volume 87.4 fL (80.0-98.0); Monocytes Absolute Auto 0.5 X10*3/uL (0.1-1.2); Monocytes Percent Auto 7.5 % (2-11); Neutrophils Absolute Auto 3.7 x10*3/uL (2.0-8.3); Neutrophils Percent Auto 51.3 % (45-73); Platelet Count 216 X10*3/uL (160-400); Red Blood Count 4.99 X10*6/uL (4.20-5.50); Red Cell Distribution Width 13.5 % (11.0-16.0); White Blood Count 7.2 X10*3/uL (4.8-10.8)
[2021-09-02 11:53] LABS: Alanine Aminotransferase 57 U/L (0-31); Albumin Level 4.2 g/dL (3.5-5.0); Alkaline Phosphatase 90 U/L (39-117); Anion Gap 15 (12-20); Aspartate Amino Transferase 38 U/L (5-31); Bilirubin Direct 0.4 mg/dL (0.0-0.5); Bilirubin Total 1.4 mg/dL (0.0-1.0); Blood Urea Nitrogen 8 mg/dL (9-16); Calcium 9.4 mg/dL (8.4-10.2); Carbon Dioxide 20 mmol/L (22-29); Chloride 107 mmol/L (96-108); Creatinine Clr Calc Pharmacy 124.4; Estimated Glomerular Filt Rate > 60; Glucose Random 89 mg/dL (60-115); Lipase 13 U/L (8-78); Potassium 4.7 mmol/L (3.3-5.1); Sodium 137 mmol/L (135-145); Total Protein 7.2 g/dL (6.5-8.0)
[2021-09-02] MEDS: ondansetron HCL 4 MG/2 ML VIAL IVPUSH (11:56)
[2021-09-02] MEDS: Morphine Sulfate 4 MG/ML CARTRIDGE IVPUSH (11:56)
== END 2021-09-02 13:35 | disposition home or self-care (01) ==
PROVIDERS: Emergency Provider Emergency Medicine; PCP Internal Medicine
DX: R10.30 Lower abdominal pain, unspecified (principal)
CPT/HCPCS: 36415; 74176; 80048; 80076; 81003; 81025; 83690; 83735; 85025; 96374; 96375; 99282; 99284; J2270; J2405

== ENCOUNTER 2021-09-17 17:00 | Emergency (ER) | payer MEDICAID, SELFPAY ==
--- NOTE | ~2021-09-17 | US_ITS ---
EXAMINATION: US PELVIS CLINICAL INFORMATION: Right pelvic pain. History of ovarian cyst. COMPARISON: Previous pelvic ultrasound April [address] of the abdomen and pelvis August 2021 TECHNIQUE: Ultrasound of the pelvis is performed using both transabdominal and transvaginal transducers along with Doppler. Transvaginal imaging is performed due to inadequate visualization transabdominally. FINDINGS: The uterus is anteverted and measures 7.2 x 4.7 x 4.9 cm in dimension. The endometrium is thickened and heterogeneous appearing. Endometrial thickness measures 2.1 cm. There is a 1.2 cm hypoechoic lesion in the anterior lower uterine segment suggestive of a fibroid. This is similar to previous exam. The ovaries are normal-appearing. The right ovary measures 3.2 x 2.5 x 2 cm. Left ovary measures 2.2 x 1.3 x 1 cm. There is no fluid in the pelvis. US/US pelvic and transvaginal IMPRESSION: Abnormally thickened endometrium. This is a new finding from April 2021 exam. Stable small uterine fibroid. Normal-appearing ovaries.
[2021-09-17 17:19] VITALS: BP 136/86; PULSE 86; RESP 18; TEMP 37; O2SAT 100; BMI 37.8
[2021-09-17 17:55] LABS: Hematocrit 38.6 % (37.0-47.0); Hemoglobin 12.7 g/dl (12.0-16.0); Mean Corpuscular HGB Conc 32.9 g/dl (31.0-35.0); Mean Corpuscular Hemoglobin 28.4 pg (27.0-33.0); Mean Corpuscular Volume 86.4 fL (80.0-98.0); Mean Platelet Volume 10.4 fL (9.4-12.3); Platelet Count 274 X10*3/uL (160-400); Red Blood Count 4.47 X10*6/uL (4.20-5.50); Red Cell Distribution Width 13.5 % (11.0-16.0); White Blood Count 8.1 X10*3/uL (4.8-10.8)
[2021-09-17 18:06] LABS: Anion Gap 12 (12-20); Blood Urea Nitrogen 6 mg/dL (9-16); Calcium 9.1 mg/dL (8.4-10.2); Carbon Dioxide 24 mmol/L (22-29); Chloride 106 mmol/L (96-108); Creatinine Clr Calc Pharmacy 108.7; Estimated Glomerular Filt Rate > 60; Glucose Random 128 mg/dL (60-115); Lipase 12 U/L (8-78); Potassium 3.6 mmol/L (3.3-5.1); Sodium 138 mmol/L (135-145)
--- NOTE | 2021-09-17 20:29 | ED_ITS ---
HPI - General Adult General Chief complaint: General Medical Stated complaint: Ovarian Pain Time Seen by Provider: 09/17/21 20:22 Source: patient Mode of arrival: ambulatory Limitations: no limitations History of Present Illness HPI narrative: Patient history of ovarian cyst with complaining of pain in the right lower abdomen for last 2 days along with cold symptoms and dry cough patient tested for COVID at home which was negative. Complaining of body aches headache no nausea no vomiting no diarrhea or shortness of breath Related Data Home Medications Medication Instructions Recorded Confirmed acetaminophen 650 mg/20.3 mL oral 650 mg PO Q6H PRN 04/21/20 04/17/21 solution albuterol sulfate 90 mcg/actuation 2 puff INHALATION Q6H PRN 04/21/20 04/17/21 aerosol inhaler duloxetine 60 mg capsule,delayed 60 mg PO DAILY 04/17/21 04/17/21 release (Cymbalta) gabapentin 300 mg capsule 300 mg PO TID 04/17/21 04/17/21 Previous Rx's Medication Instructions Recorded cetirizine 10 mg tablet 10 mg PO DAILY #30 tab 05/04/20 cholecalciferol (vitamin D3) 25 25 mcg PO DAILY #30 cap 05/16/20 mcg (1,000 unit) capsule certolizumab pegol (Cimzia) 400 mg (2 mL) SUBCUT Q2W #1 ea 06/14/20 pawewfmogq-yuomvuqatmokd-yztjjhuq 1 cap PO Q6H PRN #10 cap 09/18/20 50 mg-300 mg-40 mg capsule (Fioricet) pantoprazole 40 mg tablet,delayed 40 mg PO DAILY #14 tab 10/08/20 release (Protonix) meclizine 25 mg tablet 25 mg PO TID PRN #20 tab 11/09/20 ibuprofen 600 mg tablet 600 mg PO Q8H PRN #20 tab 02/06/21 medroxyprogesterone 10 mg tablet 10 mg PO DAILY #10 tab 04/17/21 (Provera) acetaminophen 325 mg tablet 650 mg PO Q4H PRN #20 tab 05/06/21 (Tylenol) ciprofloxacin HCl 500 mg tablet 500 mg PO BID #14 tab 05/06/21 phenazopyridine 200 mg tablet 200 mg PO TID PRN #10 tab 05/06/21 (Pyridium) cyclobenzaprine 10 mg tablet 10 mg PO TID PRN #14 tab 09/02/21 ondansetron 4 mg disintegrating 4 mg PO Q8H PRN #20 tab 09/02/21 tablet Allergies Allergy/AdvReac Type Severity Reaction Status Date / Time aspirin Allergy Intermediate rash Verified 04/17/21 10:53 Review of Systems Review of Systems: Yes all other systems are reviewed and are negative [facility] Past Medical History Medical History Asthma Myofascial pain syndrome Numbness in both hands Polyarthritis Rheumatoid arthritis Surgical History H/O breast biopsy H/O shoulder surgery Hx of section Hx of cholecystectomy Family History Family History Maternal Grandmother Diabetes Father HTN (hypertension) Mother HTN (hypertension) Social History Social History Alcohol intake: never Patient Tobacco Use Status: Never used Tobacco Use of substances other than those prescribed or required for medical reasons: No Advance Directives: No Advance Directives Information Provided: No Gender identity: Female Physical Exam ED Vital Signs: Vital Signs - 24 hr 09/17/21 17:19 09/17/21 20:47 Temperature 98.6 F 98.2 F Pulse Rate 86 76 Respiratory Rate 18 18 Blood Pressure 136/86 126/80 Pulse Oximetry 100 100 BMI result Body Mass Index 37.8 Appearance: Alert. Oriented X3. No acute distress. Obese Eyes: PERRLA, No Nystagmus ENT: Pharynx normal. Oral Mucosa moist Neck: Normal inspection. Neck supple. CVS: Normal heart rate and rhythm. Pulses normal. Respiratory: No respiratory distress. Equal air entry bilateral, no wheezing/rales/rhonchi Abdomen: Soft and deep mild tenderness R pelvic area no RT or guarding, Bowel sounds are present, no mass palpable, no CVA tenderness Skin: Skin warm and dry. Normal skin color. Normal skin turgor. Extremities: No lower extremity edema. No calf tenderness Neuro: Oriented X 3. No motor deficit. No sensory deficit.No cerebellar signs , cranial nerves II-XII intact Medical Decision Making MDM Narrative Medical decision making narrative: Patient with irregular periods 6 para 3 last menstrual cycle was in . Incidentally noticed urine positive for ultrasound did not show any IUP slight thickening of the endometrium patient denies any vaginal bleeding hCG ordered patient advised to follow with OBG HCG quantitative only is 79 no IUP seen in ultrasound likely very early Lab Data Lab results reviewed: Yes I reviewed the patient's lab results. Result diagrams: 09/17/21 17:28 09/17/21 17:28 Labs: Lab Results 09/17/21 09/17/21 09/17/21 Range/Units 17:28 17:28 20:39 WBC 8.1 (4.8-10.8) X10*3/uL RBC 4.47 (4.20-5.50) X10*6/uL Hgb 12.7 (12.0-16.0) g/dl Hct 38.6 (37.0-47.0) % MCV 86.4 (80.0-98.0) fL MCH 28.4 (27.0-33.0) pg MCHC 32.9 (31.0-35.0) g/dl RDW 13.5 (11.0-16.0) % Plt Count 274 D (160-400) X10*3/uL MPV 10.4 (9.4-12.3) fL Absolute Nucleated RBC 0.000 (0.0-0.012) X10*3/uL Nucleated RBC % (auto) 0.0 (0.0-0.2) /100WBC Sodium 138 (135-145) mmol/L Potassium 3.6 D (3.3-5.1) mmol/L Chloride 106 (96-108) mmol/L Carbon Dioxide 24 (22-29) mmol/L Anion Gap 12 (12-20) BUN 6 L (9-16) mg/dL Creatinine 0.79 (0.5-1.4) mg/dL Estim Creat Clear Calc 108.7 Estimated GFR > 60 Random Glucose 128 H (60-115) mg/dL Calcium 9.1 (8.4-10.2) mg/dL Lipase 12 (8-78) U/L Beta HCG, Quant 79 mIU/mL Urine Color Urine Appearance Urine pH (5.0-8.0) Ur Specific [place] (1.005-1.025) Urine Protein (NEG-TRACE) MG/DL Urine Glucose (UA) (NEG) MG/DL Urine Ketones (NEG) MG/DL Urine Blood (NEG) Urine Nitrite (NEG) Ur Leukocyte Esterase (NEG) Urine Test (NEGATIVE) COVID-19 (KAYLA) (Negative) COVID-19 Clin Com Influenza Type A (VASILE) Negative (Negative) Influenza Type B (VASILE) Negative (Negative) Influenza A & B Note See Note 09/17/21 09/17/21 09/17/21 Range/Units 20:39 22:19 22:19 WBC (4.8-10.8) X10*3/uL RBC (4.20-5.50) X10*6/uL Hgb (12.0-16.0) g/dl Hct (37.0-47.0) % MCV (80.0-98.0) fL MCH (27.0-33.0) pg MCHC (31.0-35.0) g/dl RDW (11.0-16.0) % Plt Count (160-400) X10*3/uL MPV (9.4-12.3) fL Absolute Nucleated RBC (0.0-0.012) X10*3/uL Nucleated RBC % (auto) (0.0-0.2) /100WBC Sodium (135-145) mmol/L Potassium (3.3-5.1) mmol/L Chloride (96-108) mmol/L Carbon Dioxide (22-29) mmol/L Anion Gap (12-20) BUN (9-16) mg/dL Creatinine (0.5-1.4) mg/dL Estim Creat Clear Calc Estimated GFR Random Glucose (60-115) mg/dL Calcium (8.4-10.2) mg/dL Lipase (8-78) U/L Beta HCG, Quant mIU/mL Urine Color YELLOW Urine Appearance HAZY Urine pH 6.0 (5.0-8.0) Ur Specific [place] 1.020 (1.005-1.025) Urine Protein NEG (NEG-TRACE) MG/DL Urine Glucose (UA) NEG (NEG) MG/DL Urine Ketones NEG (NEG) MG/DL Urine Blood NEG (NEG) Urine Nitrite NEG (NEG) Ur Leukocyte Esterase NEG (NEG) Urine Test POSITIVE H (NEGATIVE) COVID-19 (KAYLA) Negative (Negative) COVID-19 Clin Com See Note Influenza Type A (VASILE) (Negative) Influenza Type B (VASILE) (Negative) Influenza A & B Note Discharge Plan Discharge Clinical Impression: Patient Disposition: Home, Self-Care Instructions: (ED) Additional Instructions: You have very early dates are notknown Drink plenty of fluids tylenol for pain 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 Tiedipti embarazo muy temprano no se conocen fechas Beber mucho l?quido Tylenol para el dolor Seguimiento con obstetra ginec?logo Prescriptions: No Action Cimzia 400 mg/2 mL (200 mg/mL x 2) syringe kit 400 mg subcut Q2W Qty: 1 0RF Rx Instructions: administer as 2 equally divided doses at 2 different sites in abdomen or thigh twomrgusrd-rcxehzqvsogvk-jicg [Fioricet] 50-300-40 mg capsule 1 cap PO Q6H PRN (Reason: pain) Qty: 10 0RF pantoprazole [Protonix] 40 mg tablet,delayed release (DR/EC) 40 mg PO DAILY Qty: 14 0RF meclizine 25 mg tablet 25 mg PO TID PRN (Reason: dizziness) Qty: 20 0RF cetirizine 10 mg tablet 10 mg PO DAILY Qty: 30 0RF ciprofloxacin HCl 500 mg tablet 500 mg PO BID Qty: 14 0RF phenazopyridine [Pyridium] 200 mg tablet 200 mg PO TID PRN (Reason: pain) Qty: 10 0RF acetaminophen [Tylenol] 325 mg tablet 650 mg PO Q4H PRN (Reason: pain) Qty: 20 0RF ibuprofen 600 mg tablet 600 mg PO Q8H PRN (Reason: pain) Qty: 20 0RF cyclobenzaprine 10 mg tablet 10 mg PO TID PRN (Reason: muscle spasm) Qty: 14 0RF ondansetron 4 mg tablet,disintegrating 4 mg PO Q8H PRN (Reason: nausea and vomiting) Qty: 20 0RF acetaminophen 650 mg/20.3 mL solution 650 mg PO Q6H PRN0RF albuterol sulfate 90 mcg/actuation HFA aerosol inhaler 2 puff inhalation Q6H PRN0RF cholecalciferol (vitamin D3) 25 mcg (1,000 unit) capsule 25 mcg PO DAILY Qty: 30 5RF duloxetine [Cymbalta] 60 mg capsule,delayed release(DR/EC) 60 mg PO DAILY 0RF gabapentin 300 mg capsule 300 mg PO TID 0RF medroxyprogesterone [Provera] 10 mg tablet 10 mg PO DAILY Qty: 10 0RF Referrals: John Nance MD [Physician] - 1 week Interventions: ED Discharge Assessment Last Done: 09/17/21 23:25 Discharge Date/Time: 09/17/21 23:27 Print Language: [place]
[2021-09-17 20:47] VITALS: BP 126/80; PULSE 76; RESP 18; TEMP 36.8; O2SAT 100
[2021-09-17 21:23] LABS: COVID-19 Test Negative (Negative); IDNOW Serial# 16C4AD1C; Influenza A Negative (Negative); Influenza B2 Negative (Negative)
[2021-09-17 22:27] LABS: Appearance Urine HAZY; Color Urine YELLOW; Glucose Urine UA NEG (NEG); Leukocyte Esterase Urine NEG (NEG); Nitrite Urine NEG (NEG); Urine Blood NEG (NEG); Urine Ketones NEG (NEG); Urine Protein NEG (NEG-TRACE)
[2021-09-17 22:35] LABS: UPreg QC Valid YES; Urine Pregnancy POSITIVE (NEGATIVE)
[2021-09-17 23:28] LABS: HCG Quantitative 79 mIU/mL
== END 2021-09-17 23:27 | disposition home or self-care (01) ==
PROVIDERS: Nurse Practitioner Family; Emergency Provider Internal Medicine; PCP Internal Medicine
DX: R10.31 Right lower quadrant pain (principal); Z33.1 Pregnant state, incidental; Z20.822 Contact with and (suspected) exposure to COVID-19
CPT/HCPCS: 36415; 76830; 76856; 80048; 81003; 81025; 83690; 84702; 85027; 87502; 87635; 99284

== ENCOUNTER 2021-10-05 16:21 | Emergency (ER) | payer MEDICAID, SELFPAY ==
--- NOTE | ~2021-10-05 | US_ITS ---
EXAMINATION: US OBSTETRICAL ULTRASOUND CLINICAL INFORMATION: Spotting with pain COMPARISON: None. Real-time imaging by the hogshead filler. Transabdominal transvaginal study. There is a cystic area within the endometrial canal. This may represent an early gestational sac. Measures 1.2 x 0.5 x 0.7 cm. This could correlate to a 5 week 3 day . There is echogenicity within the sac but no convincing evidence for pole. There is no heart rate. The right ovary is 3.5 x 2.1 x 2 cm. Vascularity is demonstrated. There is a complex cyst versus small solid lesion associated with the right ovary 1.4 x 1.1 x 1.3 cm. No internal vascularity. There is thoracic vascularity in the periphery which may be in the adjacent ovary but I would recommend a follow-up. The left ovary is measuring 2.6 x 1.8 x 1.7 cm. Normal-appearing. No free fluid is seen in the cul-de-sac. Several cine images are submitted. The hogshead filler states subchorionic bleed. This is not adequately confirmed on the imaging submitted however the structure labeled gestational sac appears more posterior in the uterus and the more anterior uterine architecture is mixed in echogenicity. This could represent subchorionic hemorrhage or fibroid change. US/US OB pelvic and transvaginal IMPRESSION: Findings are described in detail above. There is a fluid collection identified by the hogshead filler in the uterus which could represent a small gestational sac correlating to a 5 week 3 day . No convincing evidence of pole or yolk sac or heart rate. Continued follow-up recommended As stated this cystic structure demonstrates more thickened myometrium anterior than posterior and the more anterior myometrium is heterogeneous in echotexture. This could represent an element of subchorionic hemorrhage versus fibroid change versus other. The right ovary demonstrates a complex possible hemorrhagic cyst or a solid lesion measuring 1.4 x 1.3 cm. Follow-up is recommended
[2021-10-05 16:27] VITALS: BP 130/87; PULSE 90; RESP 18; TEMP 36.6; O2SAT 98; BMI 41.6
[2021-10-05 17:00] LABS: MANUAL DIFF FLAG NO
[2021-10-05 17:02] LABS: Appearance Urine CLEAR; Color Urine YELLOW; Glucose Urine UA NEG (NEG); Leukocyte Esterase Urine NEG (NEG); Nitrite Urine NEG (NEG); Urine Blood NEG (NEG); Urine Ketones NEG (NEG); Urine Protein NEG (NEG-TRACE)
[2021-10-05 17:03] LABS: Basophils Percent Auto 0.4 % (0-2); Eosinophils Absolute Auto 0.1 X10*3/uL (0.0-0.4); Eosinophils Percent Auto 1.5 % (0-4); Hematocrit 38.2 % (37.0-47.0); Hemoglobin 12.7 g/dl (12.0-16.0); Imm Gran Abs Auto 0.03 X10*3/uL (0.00-0.03); Imm Gran Pct Auto 0.4 % (0.0-0.4); Lymphocytes Absolute Auto 2.6 X10*3/uL (1.2-4.9); Lymphocytes Percent Auto 30.2 % (20-40); Mean Corpuscular HGB Conc 33.2 g/dl (31.0-35.0); Mean Corpuscular Hemoglobin 28.9 pg (27.0-33.0); Mean Platelet Volume 9.9 fL (9.4-12.3); Monocytes Absolute Auto 0.5 X10*3/uL (0.1-1.2); Monocytes Percent Auto 6.1 % (2-11); Neutrophils Absolute Auto 5.2 x10*3/uL (2.0-8.3); Neutrophils Percent Auto 61.4 % (45-73); Platelet Count 261 X10*3/uL (160-400); Red Blood Count 4.39 X10*6/uL (4.20-5.50); Red Cell Distribution Width 13.9 % (11.0-16.0); White Blood Count 8.5 X10*3/uL (4.8-10.8)
[2021-10-05 17:25] LABS: Anion Gap 13 (12-20); Blood Urea Nitrogen 8 mg/dL (9-16); Calcium 9.3 mg/dL (8.4-10.2); Carbon Dioxide 22 mmol/L (22-29); Chloride 106 mmol/L (96-108); Creatinine Clr Calc Pharmacy 114.9; Estimated Glomerular Filt Rate > 60; Glucose Random 117 mg/dL (60-115); Potassium 3.8 mmol/L (3.3-5.1); Sodium 137 mmol/L (135-145)
[2021-10-05 17:29] LABS: HCG Quantitative 11322 mIU/mL
--- NOTE | 2021-10-05 17:37 | ED.PREGNANCY ---
HPI - General Chief complaint: General Medical Stated complaint: headaches//spotting Time Seen by Provider: 10/05/21 17:04 Source: patient Mode of arrival: ambulatory Limitations: no limitations History of Present Illness HPI Narrative: uknown LMP blood type O POS never received Rhogam in prior pregnancies states her period was irregular for 7 months here on 09/15 quant 79 and early comes back today with c/o light brown spotting cramping at times and headaches for the past week MD Complaint: other (spotting headaches ) Onset (ago): week(s) (1) Pain Consistency: intermittent Location: pelvis Severity: mild Quality: Cramping Radiation: pelvis Relieving factors: none Exacerbating factors: none Associated symptoms: vaginal bleeding Vaginal bleeding: light Patient : Yes OB History - Current : no complications OB History - Previous Pregnancies: no complications care: none Related Data Home Medications Medication Instructions Recorded Confirmed acetaminophen 650 mg/20.3 mL oral 650 mg PO Q6H PRN 04/21/20 04/17/21 solution albuterol sulfate 90 mcg/actuation 2 puff inhalation Q6H PRN 04/21/20 04/17/21 aerosol inhaler duloxetine 60 mg capsule,delayed 60 mg PO DAILY 04/17/21 04/17/21 release (Cymbalta) gabapentin 300 mg capsule 300 mg PO TID 04/17/21 04/17/21 Previous Rx's Medication Instructions Recorded cetirizine 10 mg tablet 10 mg PO DAILY #30 tabs 05/04/20 cholecalciferol (vitamin D3) 25 25 mcg PO DAILY #30 caps 05/16/20 mcg (1,000 unit) capsule certolizumab pegol (Cimzia) 400 mg (2 mL) subcut Q2W 3 doses 06/14/20 #1 ea yfwwprjdpa-xvojpgnqjoqcu-djoccecn 1 cap PO Q6H PRN pain #10 caps 09/18/20 50 mg-300 mg-40 mg capsule (Fioricet) pantoprazole 40 mg tablet,delayed 40 mg PO DAILY #14 tabs 10/08/20 release (Protonix) meclizine 25 mg tablet 25 mg PO TID PRN dizziness #20 tabs 11/09/20 ibuprofen 600 mg tablet 600 mg PO Q8H PRN pain #20 tabs 02/06/21 medroxyprogesterone 10 mg tablet 10 mg PO DAILY #10 tabs 04/17/21 (Provera) acetaminophen 325 mg tablet 650 mg PO Q4H PRN pain #20 tabs 05/06/21 (Tylenol) ciprofloxacin HCl 500 mg tablet 500 mg PO BID #14 tabs 05/06/21 phenazopyridine 200 mg tablet 200 mg PO TID PRN pain 6 doses #10 05/06/21 (Pyridium) tabs cyclobenzaprine 10 mg tablet 10 mg PO TID PRN muscle spasm #14 09/02/21 tabs ondansetron 4 mg disintegrating 4 mg PO Q8H PRN nausea and 09/02/21 tablet vomiting #20 tabs PNV 153-FA 400 mcg-om3 35 mg-dha 1 tab PO DAILY #30 tabs 10/05/21 25 mg-epa 5 mg-fish oil chew tablet ( Gummies) Allergies Allergy/AdvReac Type Severity Reaction Status Date / Time aspirin Allergy Intermediate rash Verified 04/17/21 10:53 Review of Systems Review of Systems: Constitutional : No Fever, No Chills ENT/Mouth : No sore throat, No Rhinorrhea Eyes: No Eye Pain, No Redness Cardiovascular : No Chest Pain, No SOB Respiratory : No Cough, No Sputum, No Wheezing Gastrointestinal : no Nausea, No Vomiting, No Diarrhea, positive abdominal pain, Genitourinary : positive irregular bleeding, No Dysuria, No Urinary Frequency, positive pelvic pain Musculoskeletal : No Myalgias Skin : No rash Neuro : No Weakness, No Headache Psych : No Anxiety/Panic, No Depression Heme/Lymph: No bruising, No Lymphadenopathy Endocrine : No Polyuria, No Polydipsia All other systems reviewed and are negative [facility] Past Medical History Attestation statement: The following information was validated with the patient. Medical History (Updated 10/05/21 @ 19:11 by Olivia Benavides DO) Asthma Early stage of Myofascial pain syndrome Numbness in both hands Polyarthritis Rheumatoid arthritis Surgical History H/O breast biopsy H/O shoulder surgery Hx of section Hx of cholecystectomy Family History Family History Maternal Grandmother Diabetes Father HTN (hypertension) Mother HTN (hypertension) Social History Social History Alcohol intake: never Patient Tobacco Use Status: Never used Tobacco Advance Directives: No Advance Directives Information Provided: No Patient : Yes Gender identity: Female Physical Exam Vital Signs: Vital Signs: Last Vital Signs Temp 98 F 10/05/21 16:27 Pulse 90 10/05/21 16:27 Resp 18 10/05/21 16:27 BP 130/87 10/05/21 16:27 Pulse Ox 98 10/05/21 16:27 O2 Del Method 10/05/21 16:27 BMI result Body Mass Index 41.6 Appearance: Alert. Oriented X3. No acute distress. Eyes: Pupils equal, round and reactive to light. ENT: Pharynx normal. Neck: Normal inspection. Neck supple. CVS: Normal heart rate and rhythm. Pulses normal. Respiratory: No respiratory distress. Breath sounds normal. Abdomen: Soft and non-tender. no peritoneal signs Skin: Skin warm and dry. Normal skin color. Normal skin turgor. Extremities: No lower extremity edema. No calf ttp Neuro: Oriented X 3. No motor deficit. No sensory deficit. Course Course Course Narrative: will send patient out with OB follow up MDM - OB/Uterine Contractions MDM Narrative Medical decision making narrative: 26 yo female O POS unknown dates just seen 09/15 early comes back with c/o light brown spotting, cramping and mild headaches - at this time not toxic appearing, no fevers gradual onset - doubt [employer] infection or SAH - will obtain UA, quant, US to evaluate . Lab Data Result diagrams: 10/05/21 16:53 10/05/21 16:52 Labs: Lab Results 10/05/21 10/05/21 10/05/21 Range/Units 16:52 16:52 16:53 WBC 8.5 (4.8-10.8) X10*3/uL RBC 4.39 (4.20-5.50) X10*6/uL Hgb 12.7 (12.0-16.0) g/dl Hct 38.2 (37.0-47.0) % MCV 87.0 (80.0-98.0) fL MCH 28.9 (27.0-33.0) pg MCHC 33.2 (31.0-35.0) g/dl RDW 13.9 (11.0-16.0) % Plt Count 261 (160-400) X10*3/uL MPV 9.9 (9.4-12.3) fL Immature Gran % (Auto) 0.4 (0.0-0.4) % Neut % (Auto) 61.4 (45-73) % Lymph % (Auto) 30.2 (20-40) % Patrick % (Auto) 6.1 (2-11) % Eos % (Auto) 1.5 (0-4) % Baso % (Auto) 0.4 (0-2) % Lymph # (Auto) 2.6 (1.2-4.9) X10*3/uL Patrick # (Auto) 0.5 (0.1-1.2) X10*3/uL Eos # (Auto) 0.1 (0.0-0.4) X10*3/uL Baso # (Auto) 0.0 (0.0-0.2) X10*3/uL Abs Immat Gran (auto) 0.03 (0.00-0.03) X10*3/uL Absolute Neuts (auto) 5.2 (2.0-8.3) x10*3/uL Absolute Nucleated RBC 0.000 (0.0-0.012) X10*3/uL Nucleated RBC % (auto) 0.0 (0.0-0.2) /100WBC Sodium 137 (135-145) mmol/L Potassium 3.8 (3.3-5.1) mmol/L Chloride 106 (96-108) mmol/L Carbon Dioxide 22 (22-29) mmol/L Anion Gap 13 (12-20) BUN 8 L (9-16) mg/dL Creatinine 0.79 (0.5-1.4) mg/dL Estim Creat Clear Calc 114.9 Estimated GFR > 60 Random Glucose 117 H (60-115) mg/dL Calcium 9.3 (8.4-10.2) mg/dL Beta HCG, Quant 89023 mIU/mL Urine Color Urine Appearance Urine pH (5.0-8.0) Ur Specific [place] (1.005-1.025) Urine Protein (NEG-TRACE) MG/DL Urine Glucose (UA) (NEG) MG/DL Urine Ketones (NEG) MG/DL Urine Blood (NEG) Urine Nitrite (NEG) Ur Leukocyte Esterase (NEG) 10/05/21 Range/Units 16:53 WBC (4.8-10.8) X10*3/uL RBC (4.20-5.50) X10*6/uL Hgb (12.0-16.0) g/dl Hct (37.0-47.0) % MCV (80.0-98.0) fL MCH (27.0-33.0) pg MCHC (31.0-35.0) g/dl RDW (11.0-16.0) % Plt Count (160-400) X10*3/uL MPV (9.4-12.3) fL Immature Gran % (Auto) (0.0-0.4) % Neut % (Auto) (45-73) % Lymph % (Auto) (20-40) % Patrick % (Auto) (2-11) % Eos % (Auto) (0-4) % Baso % (Auto) (0-2) % Lymph # (Auto) (1.2-4.9) X10*3/uL Patrick # (Auto) (0.1-1.2) X10*3/uL Eos # (Auto) (0.0-0.4) X10*3/uL Baso # (Auto) (0.0-0.2) X10*3/uL Abs Immat Gran (auto) (0.00-0.03) X10*3/uL Absolute Neuts (auto) (2.0-8.3) x10*3/uL Absolute Nucleated RBC (0.0-0.012) X10*3/uL Nucleated RBC % (auto) (0.0-0.2) /100WBC Sodium (135-145) mmol/L Potassium (3.3-5.1) mmol/L Chloride (96-108) mmol/L Carbon Dioxide (22-29) mmol/L Anion Gap (12-20) BUN (9-16) mg/dL Creatinine (0.5-1.4) mg/dL Estim Creat Clear Calc Estimated GFR Random Glucose (60-115) mg/dL Calcium (8.4-10.2) mg/dL Beta HCG, Quant mIU/mL Urine Color YELLOW Urine Appearance CLEAR Urine pH 6.0 (5.0-8.0) Ur Specific [place] 1.020 (1.005-1.025) Urine Protein NEG (NEG-TRACE) MG/DL Urine Glucose (UA) NEG (NEG) MG/DL Urine Ketones NEG (NEG) MG/DL Urine Blood NEG (NEG) Urine Nitrite NEG (NEG) Ur Leukocyte Esterase NEG (NEG) Discharge Plan Discharge Clinical Impression: Early stage of Subchorionic hematoma Qualifiers: Fetus number: single or unspecified fetus Trimester: first trimester Qualified Code(s): O41.8X10 - Other specified disorders of amniotic fluid and membranes, first trimester, not applicable or unspecified Patient Disposition: Home, Self-Care Instructions: (ED), Subchorionic Hemorrhage (ED) Additional Instructions: return to ED for any worsening symptoms or concerns la ecograf?a muestra 5 semanas de embarazo, llame a russo ginec?logo lo antes posible. rosa vitaminas prenatales. Si tiene manchas, no tenga relaciones sexuales. Los hallazgos se describen en detalle m?s arriba. hay un fluido colecci?n identificada por el ecografista en el ?tero que podr?a representan un yelena?o saco gestacional que se correlaciona con un d?a de 5 semanas 3 el embarazo. No hay evidencia convincente de polo o saco vitelino o feto ritmo cardiaco. Se recomienda seguimiento continuo Bernabe se indic?, esta estructura qu?stica muestra un miometrio m?s engrosado anterior que posterior y el miometrio m?s anterior es heterog?era en ecotextura. [place] podr?a representar un elemento de hemorragia subcori?nissa versus cambio de fibroma versus otros. El ovario derecho demuestra un posible quiste hemorr?gico complejo o un lesi?n s?kim de 1,4 x 1,3 cm. Se recomienda seguimiento repetir la ecograf?a en 1 semana con obstetricia Prescriptions: New Gummies 400 mcg-35 mg- 25 mg-5 mg tablet,chewable 1 tab PO DAILY Qty: 30 4RF No Action Cimzia 400 mg/2 mL (200 mg/mL x 2) syringe kit 400 mg subcut Q2W Qty: 1 0RF Rx Instructions: administer as 2 equally divided doses at 2 different sites in abdomen or thigh blsupamrqz-uczneegrqlyzt-oagh [Fioricet] 50-300-40 mg capsule 1 cap PO Q6H PRN (Reason: pain) Qty: 10 0RF pantoprazole [Protonix] 40 mg tablet,delayed release (DR/EC) 40 mg PO DAILY Qty: 14 0RF meclizine 25 mg tablet 25 mg PO TID PRN (Reason: dizziness) Qty: 20 0RF cetirizine 10 mg tablet 10 mg PO DAILY Qty: 30 0RF ciprofloxacin HCl 500 mg tablet 500 mg PO BID Qty: 14 0RF phenazopyridine [Pyridium] 200 mg tablet 200 mg PO TID PRN (Reason: pain) Qty: 10 0RF acetaminophen [Tylenol] 325 mg tablet 650 mg PO Q4H PRN (Reason: pain) Qty: 20 0RF ibuprofen 600 mg tablet 600 mg PO Q8H PRN (Reason: pain) Qty: 20 0RF cyclobenzaprine 10 mg tablet 10 mg PO TID PRN (Reason: muscle spasm) Qty: 14 0RF ondansetron 4 mg tablet,disintegrating 4 mg PO Q8H PRN (Reason: nausea and vomiting) Qty: 20 0RF acetaminophen 650 mg/20.3 mL solution 650 mg PO Q6H PRN albuterol sulfate 90 mcg/actuation HFA aerosol inhaler 2 puff inhalation Q6H PRN cholecalciferol (vitamin D3) 25 mcg (1,000 unit) capsule 25 mcg PO DAILY Qty: 30 5RF duloxetine [Cymbalta] 60 mg capsule,delayed release(DR/EC) 60 mg PO DAILY gabapentin 300 mg capsule 300 mg PO TID medroxyprogesterone [Provera] 10 mg tablet 10 mg PO DAILY Qty: 10 0RF Stand Alone Forms: Work/School Release Print Language: Citizen Of [place]
[2021-10-05] MEDS: Acetaminophen 325 MG TABLET 650 MG PO (18:24)
== END 2021-10-05 19:31 | disposition home or self-care (01) ==
PROVIDERS: Emergency Provider Emergency Medicine; PCP Internal Medicine
DX: O20.9 Hemorrhage in early pregnancy, unspecified (principal); Z3A.01 Less than 8 weeks gestation of pregnancy; Z37.9 Outcome of delivery, unspecified
CPT/HCPCS: 36415; 76801; 76817; 80048; 81003; 84702; 85025; 99283; 99284

== ENCOUNTER 2021-11-11 10:46 | Emergency (ER) | payer MEDICAID, SELFPAY ==
--- NOTE | ~2021-11-11 | US_ITS ---
EXAMINATION: US PELVIS CLINICAL INFORMATION: 26-year-old female presented with pelvic/ovarian pain. Suspected torsion. History of recent miscarriage. COMPARISON: Pelvic ultrasound done on 10/05/2021 and 09/17/2021. TECHNIQUE: Ultrasound of the pelvis is performed using both transabdominal and transvaginal transducers along with Doppler. Transvaginal imaging is performed due to inadequate visualization transabdominally. FINDINGS: Uterus: The uterus is anteverted and measures 8.0 x 3.9 x 4.9 cm. The double wall endometrial thickness is 0.9 mm. The uterus is smooth in contour and has normal myometrial echogenicity. Solitary solid appearing subtle hypoechogenicity is noted within the lower anterior wall of the body of the uterus, measures approximately 1.0 x 1.1 x 1.0 cm, previously 1.3 x 1.1 x 1.2 cm, consistent with intramural fibroid. Adnexa: Both ovaries are visualized. There is normal color flow to the adnexa. There is no ovarian torsion. There is no pelvic ascites or fluid collection. Right ovary measures 2.7 x 1.8 x 2.4 cm. Volume of 6.1 mL, previously measured 3.2 x 2.0 x 2.5 cm volume of 8.4 mL. Left ovary measures 3.2 x 1.6 x 1.4 cm. Volume of 3.8 mL, previously measured 2.2 x 1.0 x 1.3 cm and a volume of 1.5 mL. US/US pelvic complete IMPRESSION: 1. The uterus is empty, shows approximately 1.1 cm maximum dimension intramural fibroid. Previously documented intrauterine hypoechogenicity is no longer reproduced in the current study is compared to the study dated 10/05/2021. 2. Morphologically normal-appearing ovaries without any sonographic evidence of ovarian torsion at the time of the examination. Please note that possibility of intermittent torsion is not excluded. 3. No sonographic evidence of free fluid within the pelvis.
--- NOTE | ~2021-11-11 | US_ITS ---
EXAMINATION: US PELVIS CLINICAL INFORMATION: 26-year-old female presented with pelvic/ovarian pain. Suspected torsion. History of recent miscarriage. COMPARISON: Pelvic ultrasound done on 10/05/2021 and 09/17/2021. TECHNIQUE: Ultrasound of the pelvis is performed using both transabdominal and transvaginal transducers along with Doppler. Transvaginal imaging is performed due to inadequate visualization transabdominally. FINDINGS: Uterus: The uterus is anteverted and measures 8.0 x 3.9 x 4.9 cm. The double wall endometrial thickness is 0.9 mm. The uterus is smooth in contour and has normal myometrial echogenicity. Solitary solid appearing subtle hypoechogenicity is noted within the lower anterior wall of the body of the uterus, measures approximately 1.0 x 1.1 x 1.0 cm, previously 1.3 x 1.1 x 1.2 cm, consistent with intramural fibroid. Adnexa: Both ovaries are visualized. There is normal color flow to the adnexa. There is no ovarian torsion. There is no pelvic ascites or fluid collection. Right ovary measures 2.7 x 1.8 x 2.4 cm. Volume of 6.1 mL, previously measured 3.2 x 2.0 x 2.5 cm volume of 8.4 mL. Left ovary measures 3.2 x 1.6 x 1.4 cm. Volume of 3.8 mL, previously measured 2.2 x 1.0 x 1.3 cm and a volume of 1.5 mL. US/US pelvic ovarian doppler IMPRESSION: 1. The uterus is empty, shows approximately 1.1 cm maximum dimension intramural fibroid. Previously documented intrauterine hypoechogenicity is no longer reproduced in the current study is compared to the study dated 10/05/2021. 2. Morphologically normal-appearing ovaries without any sonographic evidence of ovarian torsion at the time of the examination. Please note that possibility of intermittent torsion is not excluded. 3. No sonographic evidence of free fluid within the pelvis.
[2021-11-11 10:50] VITALS: BP 135/93; PULSE 86; RESP 18; TEMP 36.7; O2SAT 96; BMI 41.5
[2021-11-11 11:38] LABS: MANUAL DIFF FLAG NO
[2021-11-11 11:40] LABS: Basophils Absolute Auto 0.1 X10*3/uL (0.0-0.2); Basophils Percent Auto 0.7 % (0-2); Eosinophils Absolute Auto 0.2 X10*3/uL (0.0-0.4); Eosinophils Percent Auto 2.6 % (0-4); Hematocrit 38.5 % (37.0-47.0); Hemoglobin 12.8 g/dl (12.0-16.0); Imm Gran Abs Auto 0.02 X10*3/uL (0.00-0.03); Imm Gran Pct Auto 0.3 % (0.0-0.4); Lymphocytes Absolute Auto 2.5 X10*3/uL (1.2-4.9); Lymphocytes Percent Auto 35.3 % (20-40); Mean Corpuscular HGB Conc 33.2 g/dl (31.0-35.0); Mean Corpuscular Hemoglobin 28.6 pg (27.0-33.0); Mean Corpuscular Volume 85.9 fL (80.0-98.0); Monocytes Absolute Auto 0.6 X10*3/uL (0.1-1.2); Monocytes Percent Auto 7.9 % (2-11); Neutrophils Absolute Auto 3.8 x10*3/uL (2.0-8.3); Neutrophils Percent Auto 53.2 % (45-73); Platelet Count 243 X10*3/uL (160-400); Red Blood Count 4.48 X10*6/uL (4.20-5.50); Red Cell Distribution Width 12.8 % (11.0-16.0); White Blood Count 7.1 X10*3/uL (4.8-10.8)
[2021-11-11 11:55] LABS: Alanine Aminotransferase 34 U/L (0-31); Albumin Level 4.3 g/dL (3.5-5.0); Alkaline Phosphatase 84 U/L (39-117); Anion Gap 14 (12-20); Aspartate Amino Transferase 30 U/L (5-31); Bilirubin Total 1.3 mg/dL (0.0-1.0); Blood Urea Nitrogen 7 mg/dL (9-16); Calcium 9.1 mg/dL (8.4-10.2); Carbon Dioxide 23 mmol/L (22-29); Chloride 107 mmol/L (96-108); Creatinine Clr Calc Pharmacy 117.7; Estimated Glomerular Filt Rate > 60; Glucose Random 106 mg/dL (60-115); Potassium 3.8 mmol/L (3.3-5.1); Sodium 140 mmol/L (135-145); Total Protein 7.1 g/dL (6.5-8.0)
[2021-11-11 12:51] LABS: HCG Quantitative < 2 mIU/mL
[2021-11-11 14:12] VITALS: BP 121/86; PULSE 78; RESP 18; TEMP 36.3; O2SAT 97
[2021-11-11 14:27] LABS: Appearance Urine HAZY; Color Urine YELLOW; Glucose Urine UA NEG (NEG); Leukocyte Esterase Urine NEG (NEG); Nitrite Urine NEG (NEG); Specific Gravity - Urine >= 1.030 (1.005-1.025); Urine Blood NEG (NEG); Urine Ketones NEG (NEG); Urine Protein NEG (NEG-TRACE)
--- NOTE | 2021-11-11 15:03 | ED.ABDPAIN ---
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 Patient denies any urinary pain/burning/frequency but reports breast discomfort, headache. Related Data Home Medications Medication Instructions Recorded Confirmed acetaminophen 650 mg/20.3 mL oral 650 mg PO Q6H PRN 04/21/20 04/17/21 solution albuterol sulfate 90 mcg/actuation 2 puff inhalation Q6H PRN 04/21/20 04/17/21 aerosol inhaler duloxetine 60 mg capsule,delayed 60 mg PO DAILY 04/17/21 04/17/21 release (Cymbalta) gabapentin 300 mg capsule 300 mg PO TID 04/17/21 04/17/21 Previous Rx's Medication Instructions Recorded cetirizine 10 mg tablet 10 mg PO DAILY #30 tabs 05/04/20 cholecalciferol (vitamin D3) 25 25 mcg PO DAILY #30 caps 05/16/20 mcg (1,000 unit) capsule certolizumab pegol 400 mg/2 mL 400 mg (2 mL) subcut Q2W 3 doses 06/14/20 (200 mg/mL x2) subcutaneous #1 ea syringe kit (Cimzia) [id number] 1 cap PO Q6H PRN pain #10 caps 09/18/20 50 mg-300 mg-40 mg capsule (Fioricet) pantoprazole 40 mg tablet,delayed 40 mg PO DAILY #14 tabs 10/08/20 release (Protonix) meclizine 25 mg tablet 25 mg PO TID PRN dizziness #20 tabs 11/09/20 ibuprofen 600 mg tablet 600 mg PO Q8H PRN pain #20 tabs 02/06/21 medroxyprogesterone 10 mg tablet 10 mg PO DAILY #10 tabs 04/17/21 (Provera) acetaminophen 325 mg tablet 650 mg PO Q4H PRN pain #20 tabs 05/06/21 (Tylenol) ciprofloxacin HCl 500 mg tablet 500 mg PO BID #14 tabs 01/23/22 phenazopyridine 200 mg tablet 200 mg PO TID PRN pain 6 doses #10 05/06/21 (Pyridium) tabs cyclobenzaprine 10 mg tablet 10 mg PO TID PRN muscle spasm #14 09/02/21 tabs ondansetron 4 mg disintegrating 4 mg PO Q8H PRN nausea and 09/02/21 tablet vomiting #20 tabs PNV 153-FA 400 mcg-om3 35 mg-dha 1 tab PO DAILY #30 tabs 10/05/21 25 mg-epa 5 mg-fish oil chew tablet ( Gummies) ondansetron 4 mg disintegrating 4 mg PO Q8H PRN nausea and 11/11/21 tablet vomiting #7 tabs Allergies Allergy/AdvReac Type Severity Reaction Status Date / Time No Known Allergies Allergy Verified 11/11/21 12:09 Review of Systems Review of Systems Pertinent positives and negatives as stated in HPI 10 point review of systems is otherwise negative. [facility] Past Medical History Source: nursing notes reviewed Medical History Asthma Early stage of Myofascial pain syndrome Numbness in both hands Polyarthritis Rheumatoid arthritis Surgical History H/O breast biopsy H/O shoulder surgery Hx of section Hx of cholecystectomy Family History Family History Maternal Grandmother Diabetes Father HTN (hypertension) Mother HTN (hypertension) Social History Social History Alcohol intake: never Patient Tobacco Use Status: Never used Tobacco Advance Directives: No Advance Directives Information Provided: Yes Gender identity: Female Physical Exam ED Vital Signs: Vital Signs - 24 hr 11/11/21 10:50 11/11/21 14:12 Temperature 98.1 F 97.4 F Pulse Rate 86 78 Respiratory Rate 18 18 Blood Pressure 135/93 H 121/86 Pulse Oximetry 96 97 Oxygen Delivery Method Room Air BMI result Body Mass Index 41.5 VITAL SIGNS: Reviewed. GENERAL: Well developed, well nourished, in no acute distress, patient appears comfortable. HEAD: Normocephalic/atraumatic EYES: PERRLA, EOMI EARS: Ext canals without abnormality OROPHARYNX: no oral lesions noted, posterior pharynx clear LUNGS: Normal breath sounds. No adventitious sounds or accessory muscle use. SpO2<96> CARDIOVASCULAR: Regular rate and rhythm without noted murmurs ABDOMEN: Soft, non-tender, non-distended with bowel sounds. MUSCULOSKELETAL: No tenderness, deformities, or effusions noted on gross inspection. EXTREMITIES: No cyanosis, clubbing or edema. SKIN: Inspection of the skin reveals no rashes NEUROLOGIC: Alert and oriented x 4. Course Course Course Narrative: 26-year-old female with history and clinical presentation mildly suggestive of possible COVID-19 infection, UTI, but low clinical suspicion for appendicitis/renal colic/gastroenteritis. Review of all investigations negative for acute findings and suspect this may be premenstrual symptoms or other viral etiologies. Patient was provided with combination analgesics as well as antinausea medication and is otherwise discharged home in stable condition. MDM - Abdominal Pain Lab Data Result diagrams: 11/11/21 11:34 11/11/21 11:34 Labs: Lab Results 11/11/21 11/11/21 11/11/21 Range/Units 11:34 11:34 14:18 WBC 7.1 (4.8-10.8) X10*3/uL RBC 4.48 (4.20-5.50) X10*6/uL Hgb 12.8 (12.0-16.0) g/dl Hct 38.5 (37.0-47.0) % MCV 85.9 (80.0-98.0) fL MCH 28.6 (27.0-33.0) pg MCHC 33.2 (31.0-35.0) g/dl RDW 12.8 (11.0-16.0) % Plt Count 243 (160-400) X10*3/uL MPV 10.0 (9.4-12.3) fL Immature Gran % (Auto) 0.3 (0.0-0.4) % Neut % (Auto) 53.2 (45-73) % Lymph % (Auto) 35.3 (20-40) % [place] % (Auto) 7.9 (2-11) % Eos % (Auto) 2.6 (0-4) % Baso % (Auto) 0.7 (0-2) % Lymph # (Auto) 2.5 (1.2-4.9) X10*3/uL [place] # (Auto) 0.6 (0.1-1.2) X10*3/uL Eos # (Auto) 0.2 (0.0-0.4) X10*3/uL Baso # (Auto) 0.1 (0.0-0.2) X10*3/uL Abs Immat Gran (auto) 0.02 (0.00-0.03) X10*3/uL Absolute Neuts (auto) 3.8 (2.0-8.3) x10*3/uL Absolute Nucleated RBC 0.000 (0.0-0.012) X10*3/uL Nucleated RBC % (auto) 0.0 (0.0-0.2) /100WBC Sodium 140 (135-145) mmol/L Potassium 3.8 (3.3-5.1) mmol/L Chloride 107 (96-108) mmol/L Carbon Dioxide 23 (22-29) mmol/L Anion Gap 14 (12-20) BUN 7 L (9-16) mg/dL Creatinine 0.77 (0.5-1.4) mg/dL Estim Creat Clear Calc 117.7 Estimated GFR > 60 Random Glucose 106 (60-115) mg/dL Calcium 9.1 (8.4-10.2) mg/dL Total Bilirubin 1.3 H (0.0-1.0) mg/dL AST 30 (5-31) U/L ALT 34 H (0-31) U/L Alkaline Phosphatase 84 (39-117) U/L Total Protein 7.1 (6.5-8.0) g/dL Albumin 4.3 (3.5-5.0) g/dL Beta HCG, Quant < 2 mIU/mL Urine Color YELLOW Urine Appearance HAZY Urine pH 6.0 (5.0-8.0) Ur Specific [place] >= 1.030 H (1.005-1.025) Urine Protein NEG (NEG-TRACE) MG/DL Urine Glucose (UA) NEG (NEG) MG/DL Urine Ketones NEG (NEG) MG/DL Urine Blood NEG (NEG) Urine Nitrite NEG (NEG) Ur Leukocyte Esterase NEG (NEG) COVID-19 (KAYLA) (Negative) COVID-19 Clin Com 11/11/21 Range/Units 15:35 WBC (4.8-10.8) X10*3/uL RBC (4.20-5.50) X10*6/uL Hgb (12.0-16.0) g/dl Hct (37.0-47.0) % MCV (80.0-98.0) fL MCH (27.0-33.0) pg MCHC (31.0-35.0) g/dl RDW (11.0-16.0) % Plt Count (160-400) X10*3/uL MPV (9.4-12.3) fL Immature Gran % (Auto) (0.0-0.4) % Neut % (Auto) (45-73) % Lymph % (Auto) (20-40) % [place] % (Auto) (2-11) % Eos % (Auto) (0-4) % Baso % (Auto) (0-2) % Lymph # (Auto) (1.2-4.9) X10*3/uL [place] # (Auto) (0.1-1.2) X10*3/uL Eos # (Auto) (0.0-0.4) X10*3/uL Baso # (Auto) (0.0-0.2) X10*3/uL Abs Immat Gran (auto) (0.00-0.03) X10*3/uL Absolute Neuts (auto) (2.0-8.3) x10*3/uL Absolute Nucleated RBC (0.0-0.012) X10*3/uL Nucleated RBC % (auto) (0.0-0.2) /100WBC Sodium (135-145) mmol/L Potassium (3.3-5.1) mmol/L Chloride (96-108) mmol/L Carbon Dioxide (22-29) mmol/L Anion Gap (12-20) BUN (9-16) mg/dL Creatinine (0.5-1.4) mg/dL Estim Creat Clear Calc Estimated GFR Random Glucose (60-115) mg/dL Calcium (8.4-10.2) mg/dL Total Bilirubin (0.0-1.0) mg/dL AST (5-31) U/L ALT (0-31) U/L Alkaline Phosphatase (39-117) U/L Total Protein (6.5-8.0) g/dL Albumin (3.5-5.0) g/dL Beta HCG, Quant mIU/mL Urine Color Urine Appearance Urine pH (5.0-8.0) Ur Specific [place] (1.005-1.025) Urine Protein (NEG-TRACE) MG/DL Urine Glucose (UA) (NEG) MG/DL Urine Ketones (NEG) MG/DL Urine Blood (NEG) Urine Nitrite (NEG) Ur Leukocyte Esterase (NEG) COVID-19 (KAYLA) Negative (Negative) COVID-19 Clin Com See Note Discharge Plan Discharge Clinical Impression: Pelvic pain, Nausea & vomiting Patient Disposition: Home, Self-Care Instructions: Acute Nausea and Vomiting (ED), Pelvic Pain (ED) Additional Instructions: 1. Reanudar todos los medicamentos caseros seg?n lo prescrito. 2. Recomendar Tylenol/ibuprofeno de venta fercho seg?n sea necesario para controlar el dolor. Es posible que tambi?n desee considerar jeanette almohadilla t?rmica para un alivio adicional de los s?ntomas. 3. Se le anton proporcionado jeanette receta para un medicamento contra las n?useas que est? disponible en russo farmacia. 4. Sadei un seguimiento con russo proveedor de atenci?n primaria llamando a la oficina ma?hoa y programando jeanette anisha para jeanette evaluaci?n. Regrese a la sonia de emergencias por cualquier empeoramiento de los s?ntomas. Prescriptions: New ondansetron 4 mg tablet,disintegrating 4 mg PO Q8H PRN (Reason: nausea and vomiting) Qty: 7 0RF No Action Cimzia 400 mg/2 mL (200 mg/mL x 2) syringe kit 400 mg subcut Q2W Qty: 1 0RF Rx Instructions: administer as 2 equally divided doses at 2 different sites in abdomen or thigh [id number]-[id number] [Fioricet] 50-300-40 mg capsule 1 cap PO Q6H PRN (Reason: pain) Qty: 10 0RF pantoprazole [Protonix] 40 mg tablet,delayed release (DR/EC) 40 mg PO DAILY Qty: 14 0RF meclizine 25 mg tablet 25 mg PO TID PRN (Reason: dizziness) Qty: 20 0RF cetirizine 10 mg tablet 10 mg PO DAILY Qty: 30 0RF ciprofloxacin HCl 500 mg tablet 500 mg PO BID Qty: 14 0RF phenazopyridine [Pyridium] 200 mg tablet 200 mg PO TID PRN (Reason: pain) Qty: 10 0RF acetaminophen [Tylenol] 325 mg tablet 650 mg PO Q4H PRN (Reason: pain) Qty: 20 0RF Gummies 400 mcg-35 mg- 25 mg-5 mg tablet,chewable 1 tab PO DAILY Qty: 30 4RF ibuprofen 600 mg tablet 600 mg PO Q8H PRN (Reason: pain) Qty: 20 0RF cyclobenzaprine 10 mg tablet 10 mg PO TID PRN (Reason: muscle spasm) Qty: 14 0RF ondansetron 4 mg tablet,disintegrating 4 mg PO Q8H PRN (Reason: nausea and vomiting) Qty: 20 0RF acetaminophen 650 mg/20.3 mL solution 650 mg PO Q6H PRN albuterol sulfate 90 mcg/actuation HFA aerosol inhaler 2 puff inhalation Q6H PRN cholecalciferol (vitamin D3) 25 mcg (1,000 unit) capsule 25 mcg PO DAILY Qty: 30 5RF duloxetine [Cymbalta] 60 mg capsule,delayed release(DR/EC) 60 mg PO DAILY gabapentin 300 mg capsule 300 mg PO TID medroxyprogesterone [Provera] 10 mg tablet 10 mg PO DAILY Qty: 10 0RF Referrals: Marzena Strong MD [Primary Care Provider] - Print Language: Afghan
[2021-11-11 15:58] LABS: COVID-19 Test Negative (Negative); IDNOW Serial# 16C4AD1C
[2021-11-11] MEDS: Acetaminophen 325 MG TABLET 975 MG PO (16:25)
[2021-11-11] MEDS: Ondansetron ODT 4 MG TAB.RAPDIS TRANSLINGU (16:25)
[2021-11-11] MEDS: Ibuprofen 400 MG TABLET PO (16:25)
== END 2021-11-11 16:34 | disposition home or self-care (01) ==
PROVIDERS: Physician Assistant Medical; Emergency Provider Student in an Organized Health Care Education/Training Program; PCP Internal Medicine
DX: R10.2 Pelvic and perineal pain (principal); R11.2 Nausea with vomiting, unspecified; Z79.899 Other long term (current) drug therapy; Z20.822 Contact with and (suspected) exposure to COVID-19
CPT/HCPCS: 36415; 76830; 76856; 80053; 81003; 84702; 85025; 87635; 93975; 99284

== ENCOUNTER 2021-12-23 08:20 | Emergency (ER) | payer MEDICAID, SELFPAY ==
[2021-12-23 08:22] VITALS: BP 122/84; PULSE 77; RESP 18; TEMP 35.9; O2SAT 97; BMI 41.5
[2021-12-23 10:37] LABS: MANUAL DIFF FLAG NO
[2021-12-23 10:39] LABS: Basophils Percent Auto 0.6 % (0-2); Eosinophils Absolute Auto 0.1 X10*3/uL (0.0-0.4); Eosinophils Percent Auto 1.8 % (0-4); Hematocrit 40.5 % (37.0-47.0); Hemoglobin 13.3 g/dl (12.0-16.0); Imm Gran Abs Auto 0.01 X10*3/uL (0.00-0.03); Imm Gran Pct Auto 0.2 % (0.0-0.4); Lymphocytes Absolute Auto 2.4 X10*3/uL (1.2-4.9); Mean Corpuscular HGB Conc 32.8 g/dl (31.0-35.0); Mean Corpuscular Hemoglobin 28.2 pg (27.0-33.0); Mean Corpuscular Volume 85.8 fL (80.0-98.0); Mean Platelet Volume 10.1 fL (9.4-12.3); Monocytes Absolute Auto 0.4 X10*3/uL (0.1-1.2); Monocytes Percent Auto 6.7 % (2-11); Neutrophils Absolute Auto 3.6 x10*3/uL (2.0-8.3); Neutrophils Percent Auto 54.7 % (45-73); Platelet Count 272 X10*3/uL (160-400); Red Blood Count 4.72 X10*6/uL (4.20-5.50); Red Cell Distribution Width 12.6 % (11.0-16.0); White Blood Count 6.6 X10*3/uL (4.8-10.8)
[2021-12-23 10:55] LABS: COVID-19 Test Negative (Negative); IDNOW Serial# 16C4AD1C
[2021-12-23 10:56] LABS: Alanine Aminotransferase 44 U/L (0-31); Albumin Level 4.4 g/dL (3.5-5.0); Alkaline Phosphatase 92 U/L (39-117); Anion Gap 13 (12-20); Aspartate Amino Transferase 33 U/L (5-31); Bilirubin Total 1.4 mg/dL (0.0-1.0); Blood Urea Nitrogen 10 mg/dL (9-16); C Reactive Protein 1.52 mg/dL (< or = 0.50); Calcium 9.3 mg/dL (8.4-10.2); Carbon Dioxide 27 mmol/L (22-29); Chloride 104 mmol/L (96-108); Creatinine Clr Calc Pharmacy 117.7; Estimated Glomerular Filt Rate > 60; Glucose Random 88 mg/dL (60-115); Lipase 11 U/L (8-78); Potassium 4.3 mmol/L (3.3-5.1); Sodium 140 mmol/L (135-145); Total Protein 7.3 g/dL (6.5-8.0)
--- NOTE | 2021-12-23 10:57 | ED_ITS ---
HPI - General Adult General Chief complaint: Abdominal Pain Stated complaint: Lower head pain/Shoulder pain Time Seen by Provider: 12/23/21 09:54 Source: patient Mode of arrival: ambulatory Limitations: language barrier ( [place]-speaking medical office technician utilized) History of Present Illness HPI narrative: patient presents emergency department for evaluation of headache and abdominal pain. She states that she has had a diffuse posterior headache for 4 days. Her headache has been constant. It is described as aching, and a pressure-like sensation. Denies any aggravating or alleviating factors. States that the pain radiates across the top of her back and into the bilateral shoulders. She additionally is reporting pain radiating to the left eye described as a pressure. She has trialed Advil and has had some relief from this but her headache continues. Denies Neck stiffness, fevers, chills, malaise, aphasia, weakness, poor coordination, does not provide descriptors such as the worse headache ever, or thunderclap headache, denies pain to the temporal region. she is additionally reporting right lower abdominal pain and diffuse lower back pain. This pain has been intermittent over the past week. Use described as aching. Is made worse with movement such as bending forward, denies alleviating factors. she has trialed Advil with some relief. Denies identifiable precipitating injury, fevers, chills, burning with micturition, urinary frequency, urgency, hesitancy, hematuria, bladder or bowel dysfunction, numbness or tingling of the perineum or bilateral legs, constipation, or diarrhea. Denies any recent surgical procedures, any known immune compromising conditions, personal history of cancer, or IV drug usage. reports last menstrual period be prior to her miscarriage in September 2021, is currently sexually active. Related Data Home Medications Medication Instructions Recorded Confirmed acetaminophen 650 mg/20.3 mL oral 650 mg PO Q6H PRN 04/21/20 04/17/21 solution albuterol sulfate 90 mcg/actuation 2 puff inhalation Q6H PRN 04/21/20 04/17/21 aerosol inhaler duloxetine 60 mg capsule,delayed 60 mg PO DAILY 04/17/21 04/17/21 release (Cymbalta) gabapentin 300 mg capsule 300 mg PO TID 04/17/21 04/17/21 Previous Rx's Medication Instructions Recorded cetirizine 10 mg tablet 10 mg PO DAILY #30 tabs 05/04/20 cholecalciferol (vitamin D3) 25 25 mcg PO DAILY #30 caps 05/16/20 mcg (1,000 unit) capsule certolizumab pegol 400 mg/2 mL 400 mg (2 mL) subcut Q2W 3 doses 06/14/20 (200 mg/mL x2) subcutaneous #1 ea syringe kit (Cimzia) ajgdpojapi-elnitvbqyfvki-ctiebcgt 1 cap PO Q6H PRN pain #10 caps 09/18/20 50 mg-300 mg-40 mg capsule (Fioricet) pantoprazole 40 mg tablet,delayed 40 mg PO DAILY #14 tabs 10/08/20 release (Protonix) meclizine 25 mg tablet 25 mg PO TID PRN dizziness #20 tabs 11/09/20 ibuprofen 600 mg tablet 600 mg PO Q8H PRN pain #20 tabs 02/06/21 medroxyprogesterone 10 mg tablet 10 mg PO DAILY #10 tabs 04/17/21 (Provera) acetaminophen 325 mg tablet 650 mg PO Q4H PRN pain #20 tabs 05/06/21 (Tylenol) ciprofloxacin HCl 500 mg tablet 500 mg PO BID #14 tabs 05/06/21 phenazopyridine 200 mg tablet 200 mg PO TID PRN pain 6 doses #10 05/06/21 (Pyridium) tabs cyclobenzaprine 10 mg tablet 10 mg PO TID PRN muscle spasm #14 09/02/21 tabs ondansetron 4 mg disintegrating 4 mg PO Q8H PRN nausea and 09/02/21 tablet vomiting #20 tabs PNV 153-FA 400 mcg-om3 35 mg-dha 1 tab PO DAILY #30 tabs 10/05/21 25 mg-epa 5 mg-fish oil chew tablet ( Gummies) ondansetron 4 mg disintegrating 4 mg PO Q8H PRN nausea and 11/11/21 tablet vomiting #7 tabs Allergies Allergy/AdvReac Type Severity Reaction Status Date / Time No Known Allergies Allergy Verified 11/11/21 12:09 Review of Systems Review of Systems: Constitutional : No Weight loss, No Fever, No Chills ENT/Mouth :? No sore throat, No Rhinorrhea Eyes: No Swelling, No Redness Cardiovascular : No Chest Pain, No SOB, No Edema Respiratory : No Cough, No Sputum, No Wheezing Gastrointestinal : Positive Nausea, Positive Vomiting, positive Diarrhea, positive abdominal pain, No Hematochezia, No Melena Genitourinary : No Dysuria, No Urinary Frequency, No Hematuria, No Urgency? Musculoskeletal : positive shoulder pain Skin : No Skin Lesions, No rash Neuro : No Weakness, No Numbness, No Dizziness, positive Headache Psych : No Anxiety/Panic, No Depression Heme/Lymph: No Bruising, No Lymphadenopathy Endocrine : No Polyuria, No Polydipsia Yes all other systems are reviewed and are negative [facility] Past Medical History Attestation statement: The following information was validated with the patient. Source: old records reviewed Medical History Asthma Early stage of Myofascial pain syndrome Numbness in both hands Polyarthritis Rheumatoid arthritis Surgical History H/O breast biopsy H/O shoulder surgery Hx of section Hx of cholecystectomy Family History Family History Maternal Grandmother Diabetes Father HTN (hypertension) Mother HTN (hypertension) Social History Social History Alcohol intake: never Patient Tobacco Use Status: Never used Tobacco Advance Directives: No Advance Directives Information Provided: Yes Gender identity: Female Physical Exam ED Vital Signs: Vital Signs - 24 hr 12/23/21 08:22 12/23/21 11:40 Temperature 96.6 F L 98.6 F Pulse Rate 77 67 Respiratory Rate 18 16 Blood Pressure 122/84 135/78 Pulse Oximetry 97 98 Oxygen Delivery Method Room Air Room Air BMI result Body Mass Index 41.5 Appearance: Alert.?Oriented to person, place and time. No acute distress.?Normal affect. Eyes: Pupils equal, round and reactive to light.?EOMi. ENT: Pharynx normal.?? Neck: Normal inspection.? Neck supple.?Full AROM. CVS: Heart sounds normal. Normal heart rate and rhythm.? Pulses normal.?? Respiratory: No respiratory distress.? Lung sounds clear to auscultation bilaterally?? Abdomen: Soft and non-tender. Normoactive bowel sounds. ? No rebound tenderness at McBurney's point, negative Rovsing sign, negative obturator's sign, negative psoas sign. Skin: Skin warm and dry.? Normal skin color.? Normal skin turgor.?? Extremities: No lower extremity edema.? Neuro: Moves all extremities spontaneously. Sensation intact bilaterally. CN II- XII intact. No focal neuro deficits. Ambulates with normal steady gait. Course Course Course Narrative: patient is a 26-year-old female with a past medical history of asthma, myofascial pain syndrome, polyarthritis, rheumatoid arthritis who presents emergency department for evaluation of headache and abdominal/lower back pain. Overall physical exam is unremarkable, no focal neurological deficits, Abdominal exam is benign, at this time low clinical suspicion for ICH, SAH, GCA, appendicitis, renal colic. vital signs are stable. Will obtain CBC to evaluate for leukocytosis/ anemia, CMP and lipase to evaluate for abnormal electrolytes /abnormal renal function/ abnormal hepatic/biliary function, test, and Urinalysis. Reevaluation(s) Reevaluation #1: CBC is unremarkable, CMP is overall unremarkable, mildly elevated transaminases which appears consistent with prior labs, lipase is normal. is negative. urinalysis reveals no evidence of urinary tract infection or microscopic hematuria. overall no acute concerning findings for patient's symptoms, she does state that she has to start cycle, her abdominal pain and back pain may be secondary to premenstrual, or Secondary to her baseline polyarthralgia that has previously involved her bilateral shoulders as well as back. Discussed plan of care for discharge home with analgesics, worrisome signs and symptoms to return back to the emergency department for, outpatient follow-up with her primary care provider. Patient verbalized understanding, was discharged home in stable condition. Time: 12:49 Medical Decision Making Medical Records Medical records reviewed: Yes I reviewed the patient's medical records. Lab Data Lab results reviewed: Yes I reviewed the patient's lab results. Result diagrams: 12/23/21 10:33 12/23/21 10:33 Labs: Lab Results 12/23/21 12/23/21 12/23/21 Range/Units 10:33 10:33 10:33 WBC 6.6 (4.8-10.8) X10*3/uL RBC 4.72 (4.20-5.50) X10*6/uL Hgb 13.3 (12.0-16.0) g/dl Hct 40.5 (37.0-47.0) % MCV 85.8 (80.0-98.0) fL MCH 28.2 (27.0-33.0) pg MCHC 32.8 (31.0-35.0) g/dl RDW 12.6 (11.0-16.0) % Plt Count 272 (160-400) X10*3/uL MPV 10.1 (9.4-12.3) fL Immature Gran % (Auto) 0.2 (0.0-0.4) % Neut % (Auto) 54.7 (45-73) % Lymph % (Auto) 36.0 (20-40) % [place] % (Auto) 6.7 (2-11) % Eos % (Auto) 1.8 (0-4) % Baso % (Auto) 0.6 (0-2) % Lymph # (Auto) 2.4 (1.2-4.9) X10*3/uL [place] # (Auto) 0.4 (0.1-1.2) X10*3/uL Eos # (Auto) 0.1 (0.0-0.4) X10*3/uL Baso # (Auto) 0.0 (0.0-0.2) X10*3/uL Abs Immat Gran (auto) 0.01 (0.00-0.03) X10*3/uL Absolute Neuts (auto) 3.6 (2.0-8.3) x10*3/uL Absolute Nucleated RBC 0.000 (0.0-0.012) X10*3/uL Nucleated RBC % (auto) 0.0 (0.0-0.2) /100WBC ESR 14 (0-20) MM/HR Sodium 140 (135-145) mmol/L Potassium 4.3 (3.3-5.1) mmol/L Chloride 104 (96-108) mmol/L Carbon Dioxide 27 (22-29) mmol/L Anion Gap 13 (12-20) BUN 10 (9-16) mg/dL Creatinine 0.77 (0.5-1.4) mg/dL Estim Creat Clear Calc 117.7 Estimated GFR > 60 Random Glucose 88 (60-115) mg/dL Calcium 9.3 (8.4-10.2) mg/dL Magnesium 2.0 (1.6-2.6) mg/dL Total Bilirubin 1.4 H (0.0-1.0) mg/dL AST 33 H (5-31) U/L ALT 44 H (0-31) U/L Alkaline Phosphatase 92 (39-117) U/L C-Reactive Protein 1.52 H (< or = 0.50) mg/dL Total Protein 7.3 (6.5-8.0) g/dL Albumin 4.4 (3.5-5.0) g/dL Lipase 11 (8-78) U/L Beta HCG, Quant < 2 mIU/mL Urine Color Urine Appearance Urine pH (5.0-9.0) Ur Specific [place] (1.005-1.025) Urine Protein (Neg-Trace) mg/dL Urine Glucose (UA) (Negative) mg/dL Urine Ketones (Negative) mg/dL Urine Blood (Negative) Urine Nitrite (Negative) Ur Leukocyte Esterase (Negative) Urine Test (NEGATIVE) COVID-19 (KAYLA) (Negative) COVID-19 Clin Com 12/23/21 12/23/21 12/23/21 Range/Units 10:33 11:40 11:40 WBC (4.8-10.8) X10*3/uL RBC (4.20-5.50) X10*6/uL Hgb (12.0-16.0) g/dl Hct (37.0-47.0) % MCV (80.0-98.0) fL MCH (27.0-33.0) pg MCHC (31.0-35.0) g/dl RDW (11.0-16.0) % Plt Count (160-400) X10*3/uL MPV (9.4-12.3) fL Immature Gran % (Auto) (0.0-0.4) % Neut % (Auto) (45-73) % Lymph % (Auto) (20-40) % [place] % (Auto) (2-11) % Eos % (Auto) (0-4) % Baso % (Auto) (0-2) % Lymph # (Auto) (1.2-4.9) X10*3/uL [place] # (Auto) (0.1-1.2) X10*3/uL Eos # (Auto) (0.0-0.4) X10*3/uL Baso # (Auto) (0.0-0.2) X10*3/uL Abs Immat Gran (auto) (0.00-0.03) X10*3/uL Absolute Neuts (auto) (2.0-8.3) x10*3/uL Absolute Nucleated RBC (0.0-0.012) X10*3/uL Nucleated RBC % (auto) (0.0-0.2) /100WBC ESR (0-20) MM/HR Sodium (135-145) mmol/L Potassium (3.3-5.1) mmol/L Chloride (96-108) mmol/L Carbon Dioxide (22-29) mmol/L Anion Gap (12-20) BUN (9-16) mg/dL Creatinine (0.5-1.4) mg/dL Estim Creat Clear Calc Estimated GFR Random Glucose (60-115) mg/dL Calcium (8.4-10.2) mg/dL Magnesium (1.6-2.6) mg/dL Total Bilirubin (0.0-1.0) mg/dL AST (5-31) U/L ALT (0-31) U/L Alkaline Phosphatase (39-117) U/L C-Reactive Protein (< or = 0.50) mg/dL Total Protein (6.5-8.0) g/dL Albumin (3.5-5.0) g/dL Lipase (8-78) U/L Beta HCG, Quant mIU/mL Urine Color Yellow Urine Appearance Clear Urine pH 6.0 (5.0-9.0) Ur Specific [place] 1.020 (1.005-1.025) Urine Protein Negative (Neg-Trace) mg/dL Urine Glucose (UA) Negative (Negative) mg/dL Urine Ketones Negative (Negative) mg/dL Urine Blood Negative (Negative) Urine Nitrite Negative (Negative) Ur Leukocyte Esterase Negative (Negative) Urine Test NEGATIVE (NEGATIVE) COVID-19 (KAYLA) Negative (Negative) COVID-19 Clin Com See Note Discharge Plan Discharge Clinical Impression: Abdominal pain, Polyarthralgia Patient Disposition: Home, Self-Care Instructions: Abdominal Pain (ED), Arthralgia (ED), Heat Pack Application (ED) Additional Instructions: You can take ibuprofen 200 mg, 3 tablets (600mg) every 6-8 hours as needed for pain, in addition to Tylenol 500 mg, 2 tablets (1,000mg) every 4-6 hours as needed for pain, but not to exceed 3 doses daily (3,000mg).? Contact your primary care provider to arrange for a follow-up visit within 3 days. As we discussed, please consider contacting your arch support maker for further follow-up regarding your joint pain Feel free to return to the emergency department any new or worsening symptoms or concerns Puede rosa ibuprofeno de 200 mg, 3 tabletas (600 mg) cada 6 a 8 horas seg?n sea necesario para el dolor, adem?s de Tylenol 500 mg, 2 tabletas (1000 mg) cada 4 a 6 horas seg?n sea necesario para el dolor, sonja sin exceder las 3 dosis diarias (3.000 mg). Comun?quese con russo proveedor de atenci?n primaria para programar jeanette visita de seguimiento dentro de los 3 d?as. [place] discutimos, considere comunicarse con russo reumat?logo para un seguimiento adicional con respecto a russo dolor en las articulaciones. Si?ntase fercho de regresar al departamento de emergencias ante cualquier s?ntoma o inquietud nueva o que empeore Prescriptions: No Action Cimzia 400 mg/2 mL (200 mg/mL x 2) syringe kit 400 mg subcut Q2W Qty: 1 0RF Rx Instructions: administer as 2 equally divided doses at 2 different sites in abdomen or thigh lipfxjhuod-fziaozhywkzyr-bxqb [Fioricet] 50-300-40 mg capsule 1 cap PO Q6H PRN (Reason: pain) Qty: 10 0RF pantoprazole [Protonix] 40 mg tablet,delayed release (DR/EC) 40 mg PO DAILY Qty: 14 0RF meclizine 25 mg tablet 25 mg PO TID PRN (Reason: dizziness) Qty: 20 0RF cetirizine 10 mg tablet 10 mg PO DAILY Qty: 30 0RF ciprofloxacin HCl 500 mg tablet 500 mg PO BID Qty: 14 0RF phenazopyridine [Pyridium] 200 mg tablet 200 mg PO TID PRN (Reason: pain) Qty: 10 0RF acetaminophen [Tylenol] 325 mg tablet 650 mg PO Q4H PRN (Reason: pain) Qty: 20 0RF Gummies 400 mcg-35 mg- 25 mg-5 mg tablet,chewable 1 tab PO DAILY Qty: 30 4RF ondansetron 4 mg tablet,disintegrating 4 mg PO Q8H PRN (Reason: nausea and vomiting) Qty: 7 0RF ibuprofen 600 mg tablet 600 mg PO Q8H PRN (Reason: pain) Qty: 20 0RF cyclobenzaprine 10 mg tablet 10 mg PO TID PRN (Reason: muscle spasm) Qty: 14 0RF ondansetron 4 mg tablet,disintegrating 4 mg PO Q8H PRN (Reason: nausea and vomiting) Qty: 20 0RF acetaminophen 650 mg/20.3 mL solution 650 mg PO Q6H PRN albuterol sulfate 90 mcg/actuation HFA aerosol inhaler 2 puff inhalation Q6H PRN cholecalciferol (vitamin D3) 25 mcg (1,000 unit) capsule 25 mcg PO DAILY Qty: 30 5RF duloxetine [Cymbalta] 60 mg capsule,delayed release(DR/EC) 60 mg PO DAILY gabapentin 300 mg capsule 300 mg PO TID medroxyprogesterone [Provera] 10 mg tablet 10 mg PO DAILY Qty: 10 0RF Referrals: Marzena Strong MD [Primary Care Provider] - Mao Serrano MD [Physician] - Interventions: ED Discharge Assessment Last Done: 12/23/21 14:04 Discharge Date/Time: 12/23/21 14:05 Print Language: [place]
[2021-12-23 11:09] LABS: HCG Quantitative < 2 mIU/mL
[2021-12-23 11:28] LABS: Erythrocyte Sedimentation Rate 14 MM/HR (0-20)
[2021-12-23 11:40] VITALS: BP 135/78; PULSE 67; RESP 16; TEMP 37; O2SAT 98
[2021-12-23] MEDS: Acetaminophen 325 MG TABLET 975 MG PO (11:44)
[2021-12-23] MEDS: 0.9 % Sodium Chloride 1,000 ML 999 ML IV (11:45)
[2021-12-23 11:50] LABS: Appearance Urine Clear; Color Urine Yellow; Glucose Urine UA Negative (Negative); Leukocyte Esterase Urine Negative (Negative); Nitrite Urine Negative (Negative); Urine Blood Negative (Negative); Urine Ketones Negative (Negative); Urine Protein Negative (Neg-Trace)
[2021-12-23 11:52] LABS: UPreg QC Valid YES; Urine Pregnancy NEGATIVE (NEGATIVE)
== END 2021-12-23 14:05 | disposition home or self-care (01) ==
PROVIDERS: Nurse Practitioner Family; Emergency Provider Emergency Medicine; PCP Internal Medicine
DX: M25.511 Pain in right shoulder (principal); M25.512 Pain in left shoulder; R51.9 Headache, unspecified; R10.9 Unspecified abdominal pain; Z79.899 Other long term (current) drug therapy; Z20.822 Contact with and (suspected) exposure to COVID-19
CPT/HCPCS: 80053; 81003; 81025; 83690; 83735; 84702; 85025; 85652; 86140; 87635; 99283; 99284

== ENCOUNTER 2022-01-23 20:07 | Emergency (ER) | payer MEDICAID, SELFPAY ==
--- NOTE | 2022-01-23 | ECG_ITS ---
Test Reason : CHEST PAIN Blood Pressure : / mmHG Vent. Rate : 084 BPM Atrial Rate : 084 BPM P-R Int : 134 ms QRS Dur : 080 ms QT Int : 356 ms P-R-T Axes : 016 019 007 degrees QTc Int : 420 ms Normal sinus rhythm Nonspecific T wave abnormality Anterior leads Abnormal ECG When compared with ECG of 18-SEP-2020 15:38, Nonspecific T wave abnormality now evident in Anterior leads Referred By: Generic ED Physician Electronically Signed By:DAVID RODRIGUEZ MD
[2022-01-23 21:26] VITALS: BP 130/81; PULSE 77; RESP 16; TEMP 36.2; O2SAT 99; BMI 41.5
[2022-01-23 21:57] LABS: Hematocrit 38.8 % (37.0-47.0); Hemoglobin 12.6 g/dl (12.0-16.0); Mean Corpuscular HGB Conc 32.5 g/dl (31.0-35.0); Mean Corpuscular Hemoglobin 27.9 pg (27.0-33.0); Mean Platelet Volume 10.3 fL (9.4-12.3); Platelet Count 281 X10*3/uL (160-400); Red Blood Count 4.51 X10*6/uL (4.20-5.50); Red Cell Distribution Width 12.8 % (11.0-16.0); White Blood Count 7.1 X10*3/uL (4.8-10.8)
[2022-01-23 22:04] VITALS: BP 137/87; PULSE 84; RESP 15; TEMP 36.1; O2SAT 98
--- NOTE | 2022-01-23 22:04 | ED_ITS ---
HPI - Chest Pain General Chief Complaint: Chest Pain Stated Complaint: Sent by [facility], EKG results Time Seen by Provider: 01/23/22 22:04 Source: patient Mode of arrival: ambulatory Limitations: no limitations History of Present Illness HPI narrative: Patient no significant past medical history no coronary artery risk factors comes here for mid chest pain started at 01:00 p.m. earlier today felt like sharp/pressure increases on movement sent pressing no significant shortness of breath no diaphoresis felt pain in left arm also went to see PCP with the cardiogram had T inversion in anterior lead. Related Data Home Medications Medication Instructions Recorded Confirmed acetaminophen 650 mg/20.3 mL oral 650 mg PO Q6H PRN 04/21/20 04/17/21 solution albuterol sulfate 90 mcg/actuation 2 puff inhalation Q6H PRN 04/21/20 04/17/21 aerosol inhaler duloxetine 60 mg capsule,delayed 60 mg PO DAILY 04/17/21 04/17/21 release (Cymbalta) gabapentin 300 mg capsule 300 mg PO TID 04/17/21 04/17/21 Previous Rx's Medication Instructions Recorded cetirizine 10 mg tablet 10 mg PO DAILY #30 tabs 05/04/20 cholecalciferol (vitamin D3) 25 25 mcg PO DAILY #30 caps 05/16/20 mcg (1,000 unit) capsule certolizumab pegol 400 mg/2 mL 400 mg (2 mL) subcut Q2W 3 doses 06/14/20 (200 mg/mL x2) subcutaneous #1 ea syringe kit (Cimzia) qfphrougbj-qjyoqivyaxxfv-uhbswspm 1 cap PO Q6H PRN pain #10 caps 09/18/20 50 mg-300 mg-40 mg capsule (Fioricet) pantoprazole 40 mg tablet,delayed 40 mg PO DAILY #14 tabs 10/08/20 release (Protonix) meclizine 25 mg tablet 25 mg PO TID PRN dizziness #20 tabs 11/09/20 ibuprofen 600 mg tablet 600 mg PO Q8H PRN pain #20 tabs 02/06/21 medroxyprogesterone 10 mg tablet 10 mg PO DAILY #10 tabs 04/17/21 (Provera) acetaminophen 325 mg tablet 650 mg PO Q4H PRN pain #20 tabs 05/06/21 (Tylenol) ciprofloxacin HCl 500 mg tablet 500 mg PO BID #14 tabs 05/06/21 phenazopyridine 200 mg tablet 200 mg PO TID PRN pain 6 doses #10 05/06/21 (Pyridium) tabs cyclobenzaprine 10 mg tablet 10 mg PO TID PRN muscle spasm #14 09/02/21 tabs ondansetron 4 mg disintegrating 4 mg PO Q8H PRN nausea and 09/02/21 tablet vomiting #20 tabs PNV 153-FA 400 mcg-om3 35 mg-dha 1 tab PO DAILY #30 tabs 10/05/21 25 mg-epa 5 mg-fish oil chew tablet ( Gummies) ondansetron 4 mg disintegrating 4 mg PO Q8H PRN nausea and 11/11/21 tablet vomiting #7 tabs ibuprofen 600 mg tablet 600 mg PO Q6H PRN Pain (Scale 01/23/22 Score 4-6) #30 tabs Allergies Allergy/AdvReac Type Severity Reaction Status Date / Time No Known Allergies Allergy Verified 11/11/21 12:09 Review of Systems Review of Systems: Yes all other systems are reviewed and are negative [facility] Past Medical History Medical History Asthma Early stage of Myofascial pain syndrome Numbness in both hands Polyarthritis Rheumatoid arthritis Surgical History H/O breast biopsy H/O shoulder surgery Hx of section Hx of cholecystectomy Family History Family History Maternal Grandmother Diabetes Father HTN (hypertension) Mother HTN (hypertension) Social History Social History Alcohol intake: never Patient Tobacco Use Status: Never used Tobacco Advance Directives: No Advance Directives Information Provided: No Gender identity: Female Physical Exam Vital Signs: Vital Signs: Last Vital Signs Temp 97.0 F 01/23/22 22:04 Pulse 84 01/23/22 22:04 Resp 15 01/23/22 22:04 BP 137/87 01/23/22 22:04 Pulse Ox 98 01/23/22 22:04 O2 Del Method 01/23/22 22:04 BMI result Body Mass Index 41.5 Appearance: Alert. Oriented X3. No acute distress. Eyes: PERRLA, No Nystagmus ENT: Pharynx normal. Oral Mucosa moist Neck: Normal inspection. Neck supple. CVS: Normal heart rate and rhythm. No murmur rub/gallop Pulses normal. Costochondral chest wall tenderness present Respiratory: No respiratory distress. Equal air entry bilateral, no wheezing/rales/rhonchi Abdomen: Soft and nontender. Bowel sounds are present, no mass palpable, no CVA tenderness Skin: Skin warm and dry. Normal skin color. Normal skin turgor. Extremities: No lower extremity edema. No calf tenderness Neuro: Oriented X 3. No motor deficit. No sensory deficit.No cerebellar signs , cranial nerves II-XII intact MDM - Chest Pain MDM Narrative Medical decision making narrative: Patient atypical chest pain with heart score of 0 high sensitive troponin negative advised patient to follow-up with PCP Lab Data Attestation: I reviewed the patient's lab results. Result diagrams: 01/23/22 21:42 01/23/22 21:42 Labs: Lab Results 01/23/22 01/23/22 01/23/22 Range/Units 21:42 21:42 21:42 WBC 7.1 (4.8-10.8) X10*3/uL RBC 4.51 (4.20-5.50) X10*6/uL Hgb 12.6 (12.0-16.0) g/dl Hct 38.8 (37.0-47.0) % MCV 86.0 (80.0-98.0) fL MCH 27.9 (27.0-33.0) pg MCHC 32.5 (31.0-35.0) g/dl RDW 12.8 (11.0-16.0) % Plt Count 281 (160-400) X10*3/uL MPV 10.3 (9.4-12.3) fL Absolute Nucleated RBC 0.000 (0.0-0.012) X10*3/uL Nucleated RBC % (auto) 0.0 (0.0-0.2) /100WBC Sodium 142 (135-145) mmol/L Potassium 3.8 (3.3-5.1) mmol/L Chloride 102 (96-108) mmol/L Carbon Dioxide 28 (22-29) mmol/L Anion Gap 16 (12-20) BUN 8 L (9-16) mg/dL Creatinine 0.99 (0.5-1.4) mg/dL Estim Creat Clear Calc 91.5 Estimated GFR > 60 Random Glucose 90 (60-115) mg/dL Calcium 9.7 (8.4-10.2) mg/dL Total Bilirubin 0.6 (0.0-1.0) mg/dL AST 23 (5-31) U/L ALT 32 H (0-31) U/L Alkaline Phosphatase 89 (39-117) U/L Troponin I High Sens < 3.5 (<3.5-17.0) ng/L Total Protein 7.2 (6.5-8.0) g/dL Albumin 4.3 (3.5-5.0) g/dL ECG Data ECG #1: Attestation: I personally reviewed and interpreted this ECG as follows: Interpretation: Normal sinus rhythm heart rate 84 beats per minute T inversion V1 V2 no acute ST T wave changes no acute ischemia Discharge Plan Discharge Clinical Impression: Chest pain Patient Disposition: Home, Self-Care Instructions: Chest Pain (ED) Additional Instructions: Follow with PCP Ibuprofen for pain Report to ER if worsening of chest pain Prescriptions: New ibuprofen 600 mg tablet 600 mg PO Q6H PRN (Reason: Pain (Scale Score 4-6)) Qty: 30 0RF No Action Cimzia 400 mg/2 mL (200 mg/mL x 2) syringe kit 400 mg subcut Q2W Qty: 1 0RF Rx Instructions: administer as 2 equally divided doses at 2 different sites in abdomen or thigh vbjkzjnbym-nibsevhxojdpu-zrbn [Fioricet] 50-300-40 mg capsule 1 cap PO Q6H PRN (Reason: pain) Qty: 10 0RF pantoprazole [Protonix] 40 mg tablet,delayed release (DR/EC) 40 mg PO DAILY Qty: 14 0RF meclizine 25 mg tablet 25 mg PO TID PRN (Reason: dizziness) Qty: 20 0RF cetirizine 10 mg tablet 10 mg PO DAILY Qty: 30 0RF ciprofloxacin HCl 500 mg tablet 500 mg PO BID Qty: 14 0RF phenazopyridine [Pyridium] 200 mg tablet 200 mg PO TID PRN (Reason: pain) Qty: 10 0RF acetaminophen [Tylenol] 325 mg tablet 650 mg PO Q4H PRN (Reason: pain) Qty: 20 0RF Gummies 400 mcg-35 mg- 25 mg-5 mg tablet,chewable 1 tab PO DAILY Qty: 30 4RF ondansetron 4 mg tablet,disintegrating 4 mg PO Q8H PRN (Reason: nausea and vomiting) Qty: 7 0RF ibuprofen 600 mg tablet 600 mg PO Q8H PRN (Reason: pain) Qty: 20 0RF cyclobenzaprine 10 mg tablet 10 mg PO TID PRN (Reason: muscle spasm) Qty: 14 0RF ondansetron 4 mg tablet,disintegrating 4 mg PO Q8H PRN (Reason: nausea and vomiting) Qty: 20 0RF acetaminophen 650 mg/20.3 mL solution 650 mg PO Q6H PRN albuterol sulfate 90 mcg/actuation HFA aerosol inhaler 2 puff inhalation Q6H PRN cholecalciferol (vitamin D3) 25 mcg (1,000 unit) capsule 25 mcg PO DAILY Qty: 30 5RF duloxetine [Cymbalta] 60 mg capsule,delayed release(DR/EC) 60 mg PO DAILY gabapentin 300 mg capsule 300 mg PO TID medroxyprogesterone [Provera] 10 mg tablet 10 mg PO DAILY Qty: 10 0RF
[2022-01-23 22:07] LABS: Alanine Aminotransferase 32 U/L (0-31); Albumin Level 4.3 g/dL (3.5-5.0); Alkaline Phosphatase 89 U/L (39-117); Anion Gap 16 (12-20); Aspartate Amino Transferase 23 U/L (5-31); Bilirubin Total 0.6 mg/dL (0.0-1.0); Blood Urea Nitrogen 8 mg/dL (9-16); Calcium 9.7 mg/dL (8.4-10.2); Carbon Dioxide 28 mmol/L (22-29); Chloride 102 mmol/L (96-108); Creatinine Clr Calc Pharmacy 91.5; Estimated Glomerular Filt Rate > 60; Glucose Random 90 mg/dL (60-115); Potassium 3.8 mmol/L (3.3-5.1); Sodium 142 mmol/L (135-145); Total Protein 7.2 g/dL (6.5-8.0)
[2022-01-23 22:13] LABS: Troponin-I High Sensitivity < 3.5 ng/L (<3.5-17.0)
[2022-01-23] MEDS: Ibuprofen 600 MG TABLET PO (22:47)
== END 2022-01-23 22:52 | disposition home or self-care (01) ==
PROVIDERS: Emergency Provider Internal Medicine; PCP Internal Medicine
DX: R07.89 Other chest pain (principal); Z79.899 Other long term (current) drug therapy
CPT/HCPCS: 36415; 80053; 84484; 85027; 93005; 99283; 99284

== ENCOUNTER 2022-03-31 07:58 | Emergency (ER) | payer MEDICAID, SELFPAY ==
--- NOTE | ~2022-03-31 | CT_ITS ---
EXAMINATION: CT ABDOMEN AND PELVIS WITHOUT CONTRAST CLINICAL INFORMATION: Right lower quadrant pain. COMPARISON: 09/02/2021 CT scan of the abdomen and pelvis. TECHNIQUE: Multidetector volumetric imaging was performed from the superior aspect of the liver through the pubic symphysis. Sagittal and coronal reformatted images were obtained on the technologist's workstation. Lack of intravenous and oral contrast limits visceral evaluation. This CT examination was performed using dose optimization techniques as appropriate, variously including the following: *Automated exposure control *Adjustment of mA and/or kV according to patient size (this includes techniques or standardized protocols for targeted exams where dose is matched to indication/reason for exam; i.e. extremities or head) *Use of iterative reconstruction technique DLP: 1008 mGy-cm FINDINGS: LUNG BASES: The visualized lung bases are unremarkable. LIVER, GALLBLADDER, AND BILIARY TREE: Diffuse decreased hepatic attenuation without focal abnormality. Status post cholecystectomy. No biliary ductal dilatation. PANCREAS: Unremarkable. SPLEEN: Unremarkable. ADRENAL GLANDS: Unremarkable. KIDNEYS AND URETERS: The kidneys are normal in size, shape, and attenuation. No hydronephrosis, hydroureter, or calculi seen. No perinephric stranding. BLADDER: Unremarkable. GASTROINTESTINAL TRACT: Small to moderate hiatal hernia. The remainder the stomach is unremarkable. The small bowel is unremarkable. The appendix is within normal limits without acute abnormality. The colon and rectum are unremarkable. ABDOMINAL WALL: Small fat-containing LYMPH NODES: No lymphadenopathy. VASCULAR: Unremarkable. PELVIC VISCERA: Unremarkable. OSSEOUS STRUCTURES: Unremarkable. CT/CT abdomen pelvis wo IV con IMPRESSION: 1. No acute intra-abdominal/pelvic abnormality to explain the patient's pain. No evidence for acute appendicitis. 2. Hepatic steatosis. 3. Small to moderate hiatal hernia.
[2022-03-31 08:04] VITALS: BP 139/82; PULSE 76; RESP 16; TEMP 36.6; O2SAT 98; BMI 37.8
[2022-03-31 09:49] LABS: MANUAL DIFF FLAG NO
[2022-03-31 09:53] LABS: Appearance Urine Clear; Color Urine Yellow; Glucose Urine UA Negative (Negative); Leukocyte Esterase Urine Negative (Negative); Nitrite Urine Negative (Negative); PH 5.5 (5.0-9.0); UPreg QC Valid YES; Urine Blood Negative (Negative); Urine Ketones Negative (Negative); Urine Pregnancy NEGATIVE (NEGATIVE); Urine Protein Negative (Neg-Trace)
[2022-03-31 09:57] LABS: Basophils Percent Auto 0.5 % (0-2); Eosinophils Absolute Auto 0.3 X10*3/uL (0.0-0.4); Eosinophils Percent Auto 3.7 % (0-4); Hematocrit 42.1 % (37.0-47.0); Hemoglobin 13.6 g/dl (12.0-16.0); Imm Gran Abs Auto 0.02 X10*3/uL (0.00-0.03); Imm Gran Pct Auto 0.3 % (0.0-0.4); Lymphocytes Absolute Auto 2.7 X10*3/uL (1.2-4.9); Lymphocytes Percent Auto 33.8 % (20-40); Mean Corpuscular HGB Conc 32.3 g/dl (31.0-35.0); Mean Corpuscular Hemoglobin 27.2 pg (27.0-33.0); Mean Corpuscular Volume 84.2 fL (80.0-98.0); Monocytes Absolute Auto 0.5 X10*3/uL (0.1-1.2); Monocytes Percent Auto 6.2 % (2-11); Neutrophils Absolute Auto 4.4 x10*3/uL (2.0-8.3); Neutrophils Percent Auto 55.5 % (45-73); Platelet Count 290 X10*3/uL (160-400); White Blood Count 7.9 X10*3/uL (4.8-10.8)
--- NOTE | 2022-03-31 10:07 | ED_ITS ---
HPI - Abdominal Pain General Chief Complaint: Abdominal Pain Stated Complaint: R side pain Time Seen by Provider: 03/31/22 09:46 Source: patient Mode of arrival: ambulatory Limitations: no limitations History of Present Illness HPI narrative: patient with right sided abdominal pain since yesterday, with nausea and diarrhea. No vomiting. No food poisoning, no fever, no dysuria. patient has had a cholecystectomy 10 years ago. Patient has had prior kidney stones. MD elicited complaint: abdominal pain Onset (ago): day(s) Pain Consistency: intermittent Location: RLQ Severity: mild Quality: burning Relieving factors: nothing Associated symptoms: nausea and diarrhea Related Data Home Medications Medication Instructions Recorded Confirmed acetaminophen 650 mg/20.3 mL oral 650 mg PO Q6H PRN 04/21/20 04/17/21 solution albuterol sulfate 90 mcg/actuation 2 puff inhalation Q6H PRN 04/21/20 04/17/21 aerosol inhaler duloxetine 60 mg capsule,delayed 60 mg PO DAILY 04/17/21 04/17/21 release (Cymbalta) gabapentin 300 mg capsule 300 mg PO TID 04/17/21 04/17/21 Previous Rx's Medication Instructions Recorded cetirizine 10 mg tablet 10 mg PO DAILY #30 tabs 05/04/20 cholecalciferol (vitamin D3) 25 25 mcg PO DAILY #30 caps 05/16/20 mcg (1,000 unit) capsule certolizumab pegol 400 mg/2 mL 400 mg (2 mL) subcut Q2W 3 doses 06/14/20 (200 mg/mL x2) subcutaneous #1 ea syringe kit (Cimzia) [id number] 1 cap PO Q6H PRN pain #10 caps 09/18/20 50 mg-300 mg-40 mg capsule (Fioricet) pantoprazole 40 mg tablet,delayed 40 mg PO DAILY #14 tabs 10/08/20 release (Protonix) meclizine 25 mg tablet 25 mg PO TID PRN dizziness #20 tabs 11/09/20 ibuprofen 600 mg tablet 600 mg PO Q8H PRN pain #20 tabs 02/06/21 medroxyprogesterone 10 mg tablet 10 mg PO DAILY #10 tabs 04/17/21 (Provera) acetaminophen 325 mg tablet 650 mg PO Q4H PRN pain #20 tabs 05/06/21 (Tylenol) ciprofloxacin HCl 500 mg tablet 500 mg PO BID #14 tabs 05/06/21 phenazopyridine 200 mg tablet 200 mg PO TID PRN pain 6 doses #10 05/06/21 (Pyridium) tabs cyclobenzaprine 10 mg tablet 10 mg PO TID PRN muscle spasm #14 09/02/21 tabs ondansetron 4 mg disintegrating 4 mg PO Q8H PRN nausea and 09/02/21 tablet vomiting #20 tabs PNV 153-FA 400 mcg-om3 35 mg-dha 1 tab PO DAILY #30 tabs 10/05/21 25 mg-epa 5 mg-fish oil chew tablet ( Gummies) ondansetron 4 mg disintegrating 4 mg PO Q8H PRN nausea and 11/11/21 tablet vomiting #7 tabs ibuprofen 600 mg tablet 600 mg PO Q6H PRN Pain (Scale 01/23/22 Score 4-6) #30 tabs naproxen 500 mg tablet (Naprosyn) 500 mg PO BID #20 tabs 03/31/22 Allergies Allergy/AdvReac Type Severity Reaction Status Date / Time No Known Allergies Allergy Verified 11/11/21 12:09 Review of Systems Review of Systems Yes all other systems are reviewed and are negative Gastrointestinal: Reports abdominal pain PMFSH Past Medical History Medical History Asthma Early stage of Myofascial pain syndrome Numbness in both hands Polyarthritis Rheumatoid arthritis Surgical History H/O breast biopsy H/O shoulder surgery Hx of section Hx of cholecystectomy Family History Family History Maternal Grandmother Diabetes Father HTN (hypertension) Mother HTN (hypertension) Social History Social History Alcohol intake: never Patient Tobacco Use Status: Never used Tobacco Advance Directives: No Advance Directives Information Provided: No Gender identity: Female Physical Exam ED Vital Signs: Vital Signs - 24 hr 03/31/22 08:04 Temperature 98 F Pulse Rate 76 Respiratory Rate 16 Blood Pressure 139/82 Pulse Oximetry 98 Oxygen Delivery Method Room Air BMI result Body Mass Index 37.8 Const General: healthy appearing Nutritional Appearance: obese Orientation/consciousness: oriented to person and patient oriented x3 Limitations: no limitations HENMT Head: Yes normal to inspection Ears: external ears normal General nose exam: Normal external nose present Mouth: Normal oral and palatal mucosa present and oropharynx normal Throat: Yes posterior oropharynx normal Eyes General: appearance normal, both eyes and all related structures Neck Neck: Yes normal visual inspection Chest Chest palpation & inspection: normal inspection of the chest Resp Auscultation: clear to auscultation bilaterally Cardio Jugular venous distension: no JVD Rate: regular rate Rhythm: regular rhythm Heart sounds: S1 normal heart sound present and S2 normal heart sound present GI Other: obese with right lower quadrant pain, no guarding or rebound Palpation (GI): No hepatosplenomegaly present Auscultation: normal bowel sounds General: Yes no CVA tenderness Back/Spine/Pelvis Back: no CVA tenderness Skin General skin exam: no rashes or lesions noted Neuro General: oriented to person and patient oriented x3 Cranial nerves: Yes CN's II-XII intact bilaterally Motor exam (neuro): 5/5 motor strength present throughout Extrem General: Yes normal to inspection Psych Appearance: grossly normal Course Reevaluation(s) Reevaluation #1: No evidence of UTI, renal colic, or appendicitis. Will start NsAIDs and dc home Time: 11:53 Medical Decision Making Differential Diagnosis Appendicitis, ovarian cyst, kidney stone, UTI were all considered Admission/Observation with right lower abdominal pain admission was considered Lab Data Result Diagrams: 03/31/22 09:44 03/31/22 09:44 Labs: Lab Results 03/31/22 03/31/22 03/31/22 Range/Units 09:44 09:44 09:44 WBC 7.9 (4.8-10.8) X10*3/uL RBC 5.00 (4.20-5.50) X10*6/uL Hgb 13.6 (12.0-16.0) g/dl Hct 42.1 (37.0-47.0) % MCV 84.2 (80.0-98.0) fL MCH 27.2 (27.0-33.0) pg MCHC 32.3 (31.0-35.0) g/dl RDW 13.0 (11.0-16.0) % Plt Count 290 (160-400) X10*3/uL MPV 10.0 (9.4-12.3) fL Immature Gran % (Auto) 0.3 (0.0-0.4) % Neut % (Auto) 55.5 (45-73) % Lymph % (Auto) 33.8 (20-40) % [place] % (Auto) 6.2 (2-11) % Eos % (Auto) 3.7 (0-4) % Baso % (Auto) 0.5 (0-2) % Lymph # (Auto) 2.7 (1.2-4.9) X10*3/uL [place] # (Auto) 0.5 (0.1-1.2) X10*3/uL Eos # (Auto) 0.3 (0.0-0.4) X10*3/uL Baso # (Auto) 0.0 (0.0-0.2) X10*3/uL Abs Immat Gran (auto) 0.02 (0.00-0.03) X10*3/uL Absolute Neuts (auto) 4.4 (2.0-8.3) x10*3/uL Absolute Nucleated RBC 0.000 (0.0-0.012) X10*3/uL Nucleated RBC % (auto) 0.0 (0.0-0.2) /100WBC Sodium 140 (135-145) mmol/L Potassium 4.5 (3.3-5.1) mmol/L Chloride 106 (96-108) mmol/L Carbon Dioxide 26 (22-29) mmol/L Anion Gap 13 (12-20) BUN 11 (9-16) mg/dL Creatinine 0.79 (0.5-1.4) mg/dL Estim Creat Clear Calc 108.8 Estimated GFR > 60 Random Glucose 89 (60-115) mg/dL Calcium 9.6 (8.4-10.2) mg/dL Total Bilirubin 1.6 H (0.0-1.0) mg/dL Direct Bilirubin 0.4 (0.0-0.5) mg/dL AST 27 (5-31) U/L ALT 39 H (0-31) U/L Alkaline Phosphatase 88 (39-117) U/L Total Protein 7.3 (6.5-8.0) g/dL Albumin 4.5 (3.5-5.0) g/dL Lipase 18 (8-78) U/L Urine Color Yellow Urine Appearance Clear Urine pH 5.5 (5.0-9.0) Ur Specific [place] 1.020 (1.005-1.025) Urine Protein Negative (Neg-Trace) mg/dL Urine Glucose (UA) Negative (Negative) mg/dL Urine Ketones Negative (Negative) mg/dL Urine Blood Negative (Negative) Urine Nitrite Negative (Negative) Ur Leukocyte Esterase Negative (Negative) Urine Test (NEGATIVE) 03/31/22 Range/Units 09:44 WBC (4.8-10.8) X10*3/uL RBC (4.20-5.50) X10*6/uL Hgb (12.0-16.0) g/dl Hct (37.0-47.0) % MCV (80.0-98.0) fL MCH (27.0-33.0) pg MCHC (31.0-35.0) g/dl RDW (11.0-16.0) % Plt Count (160-400) X10*3/uL MPV (9.4-12.3) fL Immature Gran % (Auto) (0.0-0.4) % Neut % (Auto) (45-73) % Lymph % (Auto) (20-40) % Sherman % (Auto) (2-11) % Eos % (Auto) (0-4) % Baso % (Auto) (0-2) % Lymph # (Auto) (1.2-4.9) X10*3/uL [place] # (Auto) (0.1-1.2) X10*3/uL Eos # (Auto) (0.0-0.4) X10*3/uL Baso # (Auto) (0.0-0.2) X10*3/uL Abs Immat Gran (auto) (0.00-0.03) X10*3/uL Absolute Neuts (auto) (2.0-8.3) x10*3/uL Absolute Nucleated RBC (0.0-0.012) X10*3/uL Nucleated RBC % (auto) (0.0-0.2) /100WBC Sodium (135-145) mmol/L Potassium (3.3-5.1) mmol/L Chloride (96-108) mmol/L Carbon Dioxide (22-29) mmol/L Anion Gap (12-20) BUN (9-16) mg/dL Creatinine (0.5-1.4) mg/dL Estim Creat Clear Calc Estimated GFR Random Glucose (60-115) mg/dL Calcium (8.4-10.2) mg/dL Total Bilirubin (0.0-1.0) mg/dL Direct Bilirubin (0.0-0.5) mg/dL AST (5-31) U/L ALT (0-31) U/L Alkaline Phosphatase (39-117) U/L Total Protein (6.5-8.0) g/dL Albumin (3.5-5.0) g/dL Lipase (8-78) U/L Urine Color Urine Appearance Urine pH (5.0-9.0) Ur Specific [place] (1.005-1.025) Urine Protein (Neg-Trace) mg/dL Urine Glucose (UA) (Negative) mg/dL Urine Ketones (Negative) mg/dL Urine Blood (Negative) Urine Nitrite (Negative) Ur Leukocyte Esterase (Negative) Urine Test NEGATIVE (NEGATIVE) Radiology Impression Discussion of test interpretation with radiology: I have reviewed the radiologist's reading. Radiologist Impression: GASTROINTESTINAL TRACT: Small to moderate hiatal hernia. The remainder the stomach is unremarkable. The small bowel is unremarkable. The appendix is within normal limits without acute abnormality. The colon and rectum are unremarkable. ABDOMINAL WALL: Small fat-containing LYMPH NODES: No lymphadenopathy. VASCULAR: Unremarkable. PELVIC VISCERA: Unremarkable.? OSSEOUS STRUCTURES: Unremarkable.? CT/CT abdomen pelvis wo IV con IMPRESSION: 1.? No acute intra-abdominal/pelvic abnormality to explain the patient's pain. No evidence for acute appendicitis. 2.? Hepatic steatosis. 3.? Small to moderate hiatal hernia. ? ? Dictated By: Eliezer Villanueva MD Signed By: <Electronically signed by Eliezer Villanueva MD in [place]> 03/31/22 1123 Discharge Plan Discharge Clinical Impression: Abdominal pain Patient Disposition: Home, Self-Care Instructions: Abdominal Pain (ED) Prescriptions: New naproxen [Naprosyn] 500 mg tablet 500 mg PO BID Qty: 20 0RF No Action Cimzia 400 mg/2 mL (200 mg/mL x 2) syringe kit 400 mg subcut Q2W Qty: 1 0RF Rx Instructions: administer as 2 equally divided doses at 2 different sites in abdomen or thigh [id number] [Fioricet] 50-300-40 mg capsule 1 cap PO Q6H PRN (Reason: pain) Qty: 10 0RF pantoprazole [Protonix] 40 mg tablet,delayed release (DR/EC) 40 mg PO DAILY Qty: 14 0RF meclizine 25 mg tablet 25 mg PO TID PRN (Reason: dizziness) Qty: 20 0RF cetirizine 10 mg tablet 10 mg PO DAILY Qty: 30 0RF ciprofloxacin HCl 500 mg tablet 500 mg PO BID Qty: 14 0RF phenazopyridine [Pyridium] 200 mg tablet 200 mg PO TID PRN (Reason: pain) Qty: 10 0RF acetaminophen [Tylenol] 325 mg tablet 650 mg PO Q4H PRN (Reason: pain) Qty: 20 0RF Gummies 400 mcg-35 mg- 25 mg-5 mg tablet,chewable 1 tab PO DAILY Qty: 30 4RF ondansetron 4 mg tablet,disintegrating 4 mg PO Q8H PRN (Reason: nausea and vomiting) Qty: 7 0RF ibuprofen 600 mg tablet 600 mg PO Q6H PRN (Reason: Pain (Scale Score 4-6)) Qty: 30 0RF ibuprofen 600 mg tablet 600 mg PO Q8H PRN (Reason: pain) Qty: 20 0RF cyclobenzaprine 10 mg tablet 10 mg PO TID PRN (Reason: muscle spasm) Qty: 14 0RF ondansetron 4 mg tablet,disintegrating 4 mg PO Q8H PRN (Reason: nausea and vomiting) Qty: 20 0RF acetaminophen 650 mg/20.3 mL solution 650 mg PO Q6H PRN albuterol sulfate 90 mcg/actuation HFA aerosol inhaler 2 puff inhalation Q6H PRN cholecalciferol (vitamin D3) 25 mcg (1,000 unit) capsule 25 mcg PO DAILY Qty: 30 5RF duloxetine [Cymbalta] 60 mg capsule,delayed release(DR/EC) 60 mg PO DAILY gabapentin 300 mg capsule 300 mg PO TID medroxyprogesterone [Provera] 10 mg tablet 10 mg PO DAILY Qty: 10 0RF Referrals: Marzena Strong MD [Primary Care Provider] - 1 week
[2022-03-31 10:11] LABS: Alanine Aminotransferase 39 U/L (0-31); Albumin Level 4.5 g/dL (3.5-5.0); Alkaline Phosphatase 88 U/L (39-117); Anion Gap 13 (12-20); Aspartate Amino Transferase 27 U/L (5-31); Bilirubin Direct 0.4 mg/dL (0.0-0.5); Bilirubin Total 1.6 mg/dL (0.0-1.0); Blood Urea Nitrogen 11 mg/dL (9-16); Calcium 9.6 mg/dL (8.4-10.2); Carbon Dioxide 26 mmol/L (22-29); Chloride 106 mmol/L (96-108); Creatinine Clr Calc Pharmacy 108.8; Estimated Glomerular Filt Rate > 60; Glucose Random 89 mg/dL (60-115); Lipase 18 U/L (8-78); Potassium 4.5 mmol/L (3.3-5.1); Sodium 140 mmol/L (135-145); Total Protein 7.3 g/dL (6.5-8.0)
== END 2022-03-31 12:14 | disposition home or self-care (01) ==
PROVIDERS: Emergency Provider Emergency Medicine; PCP Internal Medicine
DX: R10.31 Right lower quadrant pain (principal); R11.2 Nausea with vomiting, unspecified; R19.7 Diarrhea, unspecified; Z79.899 Other long term (current) drug therapy
CPT/HCPCS: 36415; 74176; 80048; 80076; 81003; 81025; 83690; 85025; 99282; 99283

== ENCOUNTER 2022-05-02 08:49 | Emergency (ER) | payer MEDICAID, SELFPAY ==
[2022-05-02 08:57] VITALS: BP 153/89; PULSE 87; RESP 18; TEMP 35.9; O2SAT 99; BMI 37.4
--- NOTE | 2022-05-02 09:54 | ED_ITS ---
HPI - Headache General Chief Complaint: Headache Stated Complaint: x3 day headache, n/v/d Time Seen by Provider: 05/02/22 09:33 Source: patient Mode of arrival: ambulatory Limitations: language barrier (Arabic speaking only, snow blower used) History of Present Illness HPI Narrative: 27-year-old female who presents emergency department for evaluation of headache x3 days. She states that the headache started 3 days prior and came on gradually but got progressively worse. She states that the headache is been a constant throbbing sensation. She points to the frontal, temporal areas bilaterally and top of her head when asked to localize the pain. She states that the pain is a pressure, throbbing sensation which is 8/10 at its worst. She had associated nausea and had 3 episodes of vomiting yesterday. She states that in September 2021 when she was she had similar headaches but she then had a miscarriage in the headaches resolved. She cannot tell me when her last menstrual period was since her menses are irregular. She denied fever, chills, rhinorrhea, sore throat, cough, chest pain, shortness of breath, neck pain. Related Data Home Medications Medication Instructions Recorded Confirmed acetaminophen 650 mg/20.3 mL oral 650 mg PO Q6H PRN 04/21/20 04/17/21 solution albuterol sulfate 90 mcg/actuation 2 puff inhalation Q6H PRN 04/21/20 04/17/21 aerosol inhaler duloxetine 60 mg capsule,delayed 60 mg PO DAILY 04/17/21 04/17/21 release (Cymbalta) gabapentin 300 mg capsule 300 mg PO TID 04/17/21 04/17/21 Previous Rx's Medication Instructions Recorded cetirizine 10 mg tablet 10 mg PO DAILY #30 tabs 05/04/20 cholecalciferol (vitamin D3) 25 25 mcg PO DAILY #30 caps 05/16/20 mcg (1,000 unit) capsule certolizumab pegol 400 mg/2 mL 400 mg (2 mL) subcut Q2W 3 doses 06/14/20 (200 mg/mL x2) subcutaneous #1 ea syringe kit (Cimzia) edcdhllkjq-wdwaorlhwtybe-iaczvusa 1 cap PO Q6H PRN pain #10 caps 09/18/20 50 mg-300 mg-40 mg capsule (Fioricet) pantoprazole 40 mg tablet,delayed 40 mg PO DAILY #14 tabs 10/08/20 release (Protonix) meclizine 25 mg tablet 25 mg PO TID PRN dizziness #20 tabs 11/09/20 ibuprofen 600 mg tablet 600 mg PO Q8H PRN pain #20 tabs 02/06/21 medroxyprogesterone 10 mg tablet 10 mg PO DAILY #10 tabs 04/17/21 (Provera) acetaminophen 325 mg tablet 650 mg PO Q4H PRN pain #20 tabs 05/06/21 (Tylenol) ciprofloxacin HCl 500 mg tablet 500 mg PO BID #14 tabs 05/06/21 phenazopyridine 200 mg tablet 200 mg PO TID PRN pain 6 doses #10 05/06/21 (Pyridium) tabs cyclobenzaprine 10 mg tablet 10 mg PO TID PRN muscle spasm #14 09/02/21 tabs ondansetron 4 mg disintegrating 4 mg PO Q8H PRN nausea and 09/02/21 tablet vomiting #20 tabs PNV 153-FA 400 mcg-om3 35 mg-dha 1 tab PO DAILY #30 tabs 10/05/21 25 mg-epa 5 mg-fish oil chew tablet ( Gummies) ondansetron 4 mg disintegrating 4 mg PO Q8H PRN nausea and 11/11/21 tablet vomiting #7 tabs ibuprofen 600 mg tablet 600 mg PO Q6H PRN Pain (Scale 01/23/22 Score 4-6) #30 tabs naproxen 500 mg tablet (Naprosyn) 500 mg PO BID #20 tabs 03/31/22 metoclopramide HCl 10 mg tablet 10 mg PO Q6H PRN nausea and 05/02/22 (Reglan) vomiting #14 tabs Allergies Allergy/AdvReac Type Severity Reaction Status Date / Time No Known Allergies Allergy Verified 05/02/22 09:00 Review of Systems Review of Systems: Yes all other systems are reviewed and are negative [facility] Past Medical History [facility] Narrative: Social history: She denies tobacco, alcohol and drug use. Medical History Asthma Early stage of Myofascial pain syndrome Numbness in both hands Polyarthritis Rheumatoid arthritis Surgical History H/O breast biopsy H/O shoulder surgery Hx of section Hx of cholecystectomy Family History Family History Maternal Grandmother Diabetes Father HTN (hypertension) Mother HTN (hypertension) Social History Social History Alcohol intake: never Patient Tobacco Use Status: Never used Tobacco Smoked in Last 30 Days: No Use of substances other than those prescribed or required for medical reasons: No Advance Directives: No Advance Directives Information Provided: Yes Gender identity: Female Physical Exam Vital Signs: Vital Signs: Last Vital Signs Temp 96.6 F L 05/02/22 12:52 Pulse 77 05/02/22 12:52 Resp 15 05/02/22 12:52 BP 102/57 L 05/02/22 12:52 Pulse Ox 99 05/02/22 12:52 O2 Del Method 05/02/22 12:52 BMI result Body Mass Index 37.4 Const: General: cooperative and no acute distress Orientation/consciousness: oriented to person and oriented to place Limitations: no limitations HEENT: Head: Yes normal to inspection, Yes normocephalic and Yes atraumatic Ears: external ears normal General nose exam: Normal external nose present Face and sinus: Yes normal facial exam Mouth: Normal oral and palatal mucosa present Throat: Yes posterior oropharynx normal Eyes: General: appearance normal, both eyes and all related structures Pupils: Equal, round and reactive pupils present Neck: Neck: Yes normal visual inspection, Yes no lymphadenopathy, Yes trachea midline and Yes supple Chest: Chest palpation & inspection: normal inspection of the chest and normal palpation of entire chest wall Resp: Effort & Inspection: normal respiratory effort and able to speak in complete sentences Auscultation: clear to auscultation bilaterally Cardio: Rate: regular rate Rhythm: regular rhythm Heart sounds: S1 normal heart sound present, S2 normal heart sound present and no murmurs GI: Inspection: Yes normal to inspection Palpation (GI): Soft to palpation, nontender and no guarding Auscultation: normal bowel sounds : General: Yes no CVA tenderness Back/Spine/Pelvis: Back: no CVA tenderness Skin: General skin exam: no rashes or lesions noted Neuro: General: oriented to person and oriented to place Cranial nerves: Yes CN's II-XII intact bilaterally and Yes Equal, round and reactive pupils present Cognition (Neuro): normal cognition Motor exam (neuro): 5/5 motor strength present throughout Extrem: General: Yes normal to inspection Psych: Appearance: grossly normal Speech and movement: Normal speech and movement present Affect: normal affect Attitude: cooperative Thought process: Normal thought process present Thought content: Normal thought content present Medications Administered Discontinued Medications Generic Name Dose Route Start Last Admin Trade Name Charity PRN Reason Stop Dose Admin Diphenhydramine HCl 50 mg 05/02/22 09:54 05/02/22 10:26 Diphenhydramine Hcl 50 Mg/Ml Vial IVPUSH 05/02/22 09:55 50 mg ONCE STA Administration Sodium Chloride 1,000 mls @ 999 mls/hr 05/02/22 09:54 05/02/22 11:39 Ns IV 05/02/22 10:54 Infused .Q1H1M STA Infusion Ketorolac Tromethamine 15 mg 05/02/22 09:54 05/02/22 10:25 Ketorolac Tromethamine 15 Mg/Ml Vial IVPUSH 05/02/22 09:55 15 mg ONCE STA Administration Metoclopramide HCl 10 mg 05/02/22 09:54 05/02/22 10:25 Metoclopramide Hcl 10 Mg/2 Ml Vial IVPUSH 05/02/22 09:55 10 mg ONCE STA Administration Medical Decision Making Medical Decision Making MDM Narrative: 27-year-old female who presents emergency department for evaluation of 3 days of constant pressure-like headache which is 8/10 at its worse with associated nausea and vomiting. The headache came on gradually and got progressively worse. The patient states she had similar headaches when she was in September of 2021. The patient's physical examination was unremarkable. I ordered a laboratory evaluation to include CBC, CMP, quantitative beta-hCG. Patient was ordered to get normal saline IV x1 L, Reglan 10 mg IV , Benadryl 50 mg IV and Toradol 15 mg IV. My interpretation patient's laboratory evaluation is as follows: CBC was normal, CMP was normal. Quantitative beta-hCG was negative. The patient did get some improvement with the above treatment, she states that her pain went from 8/10 to 5/10. My impression is the patient's symptoms are consistent with a migraine-like syndrome. Patient was started on the following regimen for headaches: Reglan 10 mg orally, Benadryl 50 mg orally and Excedrin migraine 2 t ablets orally every 6 hours as needed for headache. She was given printed and verbal instructions discharged home. Differential Diagnosis Differential diagnosis includes but is not limited to migraine syndrome, viral syndrome, subarachnoid hemorrhage, meningitis, cerebral mass, temporal arteritis Lab Data MDM Lab Attestation statement: I reviewed the patient's lab results. Please see MDM from my interpretation of the data 05/02/22 10:09 05/02/22 10:09 Labs: Lab Results 05/02/22 05/02/22 05/02/22 Range/Units 10:09 10:09 10:09 WBC 6.9 (4.8-10.8) X10*3/uL RBC 4.71 (4.20-5.50) X10*6/uL Hgb 12.9 (12.0-16.0) g/dl Hct 40.4 (37.0-47.0) % MCV 85.8 (80.0-98.0) fL MCH 27.4 (27.0-33.0) pg MCHC 31.9 (31.0-35.0) g/dl RDW 13.0 (11.0-16.0) % Plt Count 257 (160-400) X10*3/uL MPV 10.5 (9.4-12.3) fL Immature Gran % (Auto) 0.1 (0.0-0.4) % Neut % (Auto) 49.1 (45-73) % Lymph % (Auto) 38.5 (20-40) % [place] % (Auto) 9.3 (2-11) % Eos % (Auto) 2.3 (0-4) % Baso % (Auto) 0.7 (0-2) % Lymph # (Auto) 2.6 (1.2-4.9) X10*3/uL [place] # (Auto) 0.6 (0.1-1.2) X10*3/uL Eos # (Auto) 0.2 (0.0-0.4) X10*3/uL Baso # (Auto) 0.1 (0.0-0.2) X10*3/uL Abs Immat Gran (auto) 0.01 (0.00-0.03) X10*3/uL Absolute Neuts (auto) 3.4 (2.0-8.3) x10*3/uL Absolute Nucleated RBC 0.000 (0.0-0.012) X10*3/uL Nucleated RBC % (auto) 0.0 (0.0-0.2) /100WBC Sodium 138 (135-145) mmol/L Potassium 4.2 (3.3-5.1) mmol/L Chloride 105 (96-108) mmol/L Carbon Dioxide 26 (22-29) mmol/L Anion Gap 11 L (12-20) BUN 9 (9-16) mg/dL Creatinine 0.72 (0.5-1.4) mg/dL Estim Creat Clear Calc 117.6 Estimated GFR > 60 Random Glucose 85 (60-115) mg/dL Calcium 9.4 (8.4-10.2) mg/dL Total Bilirubin 1.0 (0.0-1.0) mg/dL AST 26 (5-31) U/L ALT 36 H (0-31) U/L Alkaline Phosphatase 87 (39-117) U/L Total Protein 6.9 (6.5-8.0) g/dL Albumin 4.1 (3.5-5.0) g/dL Beta HCG, Quant < 2 mIU/mL Discharge Plan Discharge Clinical Impression: Migraine Qualifiers: Intractability: not intractable Patient Disposition: Home, Self-Care Instructions: Migraine Headache (ED) Additional Instructions: Your blood work was normal. Your symptoms are consistent with a migraine. I want you to take the following 3 medications together every 6 hours as needed for headache, nausea or vomiting. Reglan (metoclopramide) in 10 mg, 1 pill Benadryl 25 mg, 2 pills Excedrin migraine, 2 pills. After you take these medications, lie down in a dark quiet room and try to fall asleep. These medications will make you sleepy, do not drive or work after taking these medications. Follow-up with your doctor in 2 days. Please return to the emergency department if your symptoms get worse or if you develop any symptoms that are concerning to you. Prescriptions: New metoclopramide HCl [Reglan] 10 mg tablet 10 mg PO Q6H PRN (Reason: nausea and vomiting) Qty: 14 0RF No Action Cimzia 400 mg/2 mL (200 mg/mL x 2) syringe kit 400 mg subcut Q2W Qty: 1 0RF Rx Instructions: administer as 2 equally divided doses at 2 different sites in abdomen or thigh eplzytieey-pjzimtdugttkk-vnxq [Fioricet] 50-300-40 mg capsule 1 cap PO Q6H PRN (Reason: pain) Qty: 10 0RF pantoprazole [Protonix] 40 mg tablet,delayed release (DR/EC) 40 mg PO DAILY Qty: 14 0RF meclizine 25 mg tablet 25 mg PO TID PRN (Reason: dizziness) Qty: 20 0RF cetirizine 10 mg tablet 10 mg PO DAILY Qty: 30 0RF ciprofloxacin HCl 500 mg tablet 500 mg PO BID Qty: 14 0RF phenazopyridine [Pyridium] 200 mg tablet 200 mg PO TID PRN (Reason: pain) Qty: 10 0RF acetaminophen [Tylenol] 325 mg tablet 650 mg PO Q4H PRN (Reason: pain) Qty: 20 0RF Gummies 400 mcg-35 mg- 25 mg-5 mg tablet,chewable 1 tab PO DAILY Qty: 30 4RF ondansetron 4 mg tablet,disintegrating 4 mg PO Q8H PRN (Reason: nausea and vomiting) Qty: 7 0RF ibuprofen 600 mg tablet 600 mg PO Q6H PRN (Reason: Pain (Scale Score 4-6)) Qty: 30 0RF ibuprofen 600 mg tablet 600 mg PO Q8H PRN (Reason: pain) Qty: 20 0RF cyclobenzaprine 10 mg tablet 10 mg PO TID PRN (Reason: muscle spasm) Qty: 14 0RF ondansetron 4 mg tablet,disintegrating 4 mg PO Q8H PRN (Reason: nausea and vomiting) Qty: 20 0RF naproxen [Naprosyn] 500 mg tablet 500 mg PO BID Qty: 20 0RF acetaminophen 650 mg/20.3 mL solution 650 mg PO Q6H PRN albuterol sulfate 90 mcg/actuation HFA aerosol inhaler 2 puff inhalation Q6H PRN cholecalciferol (vitamin D3) 25 mcg (1,000 unit) capsule 25 mcg PO DAILY Qty: 30 5RF duloxetine [Cymbalta] 60 mg capsule,delayed release(DR/EC) 60 mg PO DAILY gabapentin 300 mg capsule 300 mg PO TID medroxyprogesterone [Provera] 10 mg tablet 10 mg PO DAILY Qty: 10 0RF Interventions: ED Discharge Assessment Last Done: 05/02/22 12:55 Discharge Date/Time: 05/02/22 12:56
[2022-05-02 10:15] LABS: MANUAL DIFF FLAG NO
[2022-05-02 10:17] LABS: Basophils Absolute Auto 0.1 X10*3/uL (0.0-0.2); Basophils Percent Auto 0.7 % (0-2); Eosinophils Absolute Auto 0.2 X10*3/uL (0.0-0.4); Eosinophils Percent Auto 2.3 % (0-4); Hematocrit 40.4 % (37.0-47.0); Hemoglobin 12.9 g/dl (12.0-16.0); Imm Gran Abs Auto 0.01 X10*3/uL (0.00-0.03); Imm Gran Pct Auto 0.1 % (0.0-0.4); Lymphocytes Absolute Auto 2.6 X10*3/uL (1.2-4.9); Lymphocytes Percent Auto 38.5 % (20-40); Mean Corpuscular HGB Conc 31.9 g/dl (31.0-35.0); Mean Corpuscular Hemoglobin 27.4 pg (27.0-33.0); Mean Corpuscular Volume 85.8 fL (80.0-98.0); Mean Platelet Volume 10.5 fL (9.4-12.3); Monocytes Absolute Auto 0.6 X10*3/uL (0.1-1.2); Monocytes Percent Auto 9.3 % (2-11); Neutrophils Absolute Auto 3.4 x10*3/uL (2.0-8.3); Neutrophils Percent Auto 49.1 % (45-73); Platelet Count 257 X10*3/uL (160-400); Red Blood Count 4.71 X10*6/uL (4.20-5.50); White Blood Count 6.9 X10*3/uL (4.8-10.8)
[2022-05-02] MEDS: Ketorolac Tromethamine 15 MG/ML VIAL IVPUSH (10:25)
[2022-05-02] MEDS: 0.9 % Sodium Chloride 1,000 ML 999 ML IV (10:25)
[2022-05-02] MEDS: Metoclopramide HCl 10 MG/2 ML VIAL IVPUSH (10:25)
[2022-05-02] MEDS: diphenhydrAMINE HCL 50 MG/ML VIAL IVPUSH (10:26)
[2022-05-02 10:43] LABS: HCG Quantitative < 2 mIU/mL
[2022-05-02 10:59] LABS: Alanine Aminotransferase 36 U/L (0-31); Albumin Level 4.1 g/dL (3.5-5.0); Alkaline Phosphatase 87 U/L (39-117); Anion Gap 11 (12-20); Aspartate Amino Transferase 26 U/L (5-31); Blood Urea Nitrogen 9 mg/dL (9-16); Calcium 9.4 mg/dL (8.4-10.2); Carbon Dioxide 26 mmol/L (22-29); Chloride 105 mmol/L (96-108); Creatinine Clr Calc Pharmacy 117.6; Estimated Glomerular Filt Rate > 60; Glucose Random 85 mg/dL (60-115); Potassium 4.2 mmol/L (3.3-5.1); Sodium 138 mmol/L (135-145); Total Protein 6.9 g/dL (6.5-8.0)
[2022-05-02 12:52] VITALS: BP 102/57; PULSE 77; RESP 15; TEMP 35.9; O2SAT 99
== END 2022-05-02 12:56 | disposition home or self-care (01) ==
PROVIDERS: Emergency Provider Emergency Medicine Emergency Medical Services; PCP Internal Medicine
DX: G43.909 Migraine, unspecified, not intractable, without status migrainosus (principal); Z79.899 Other long term (current) drug therapy
CPT/HCPCS: 36415; 80053; 84702; 85025; 96361; 96374; 96375; 99284; J1200; J1885; J2765

== ENCOUNTER 2022-06-02 07:05 | Emergency (ER) | payer MEDICAID, SELFPAY ==
--- NOTE | 2022-06-02 | ECG_ITS ---
Test Reason : chest pain Blood Pressure : / mmHG Vent. Rate : 091 BPM Atrial Rate : 091 BPM P-R Int : 140 ms QRS Dur : 082 ms QT Int : 356 ms P-R-T Axes : 036 026 001 degrees QTc Int : 437 ms Normal sinus rhythm Nonspecific T wave abnormality Abnormal ECG When compared with ECG of 23-JAN-2022 21:36, No significant change was found Referred By: Generic ED Physician Electronically Signed By:Urbano Ackerman
[2022-06-02 07:13] VITALS: BP 123/78; PULSE 86; RESP 18; TEMP 36.6; O2SAT 98; BMI 39.6
[2022-06-02 08:12] LABS: Influenza A PCR NEGATIVE (Negative); Influenza B PCR NEGATIVE (Negative); Resp Syncy Virus RNA Qual PCR NEGATIVE (Negative); SARS COV2 PCR INHOUSE NEGATIVE (Negative)
--- NOTE | 2022-06-02 08:37 | ED.URI ---
HPI - URI/Sore Throat General Chief Complaint: General Medical Stated Complaint: headache, stomachache, CP Time Seen by Provider: 06/02/22 07:59 Source: patient Mode of arrival: ambulatory Limitations: language barrier (Slovak-speaking medical lab tech instructor utilized) History of Present Illness HPI Narrative: Patient is a 27-year-old female who presents emergency department for evaluation of viral like syndrome. Yesterday she developed headache, diffuse stomach cramping, cough, upper chest discomfort that is felt only during episodes of cough and deep respiration. She denies any known sick contacts. Denies fevers, chills, ear pain, sore throat, nausea, vomiting, constipation, diarrhea, dysuria, urinary frequency/urgency/hesitancy, back/flank pain. She attempted to be seen at [facility] yesterday but ultimately left due to prolonged wait times. Related Data Home Medications Medication Instructions Recorded Confirmed acetaminophen 650 mg/20.3 mL oral 650 mg PO Q6H PRN 04/21/20 04/17/21 solution albuterol sulfate 90 mcg/actuation 2 puff inhalation Q6H PRN 04/21/20 04/17/21 aerosol inhaler duloxetine 60 mg capsule,delayed 60 mg PO DAILY 04/17/21 04/17/21 release (Cymbalta) gabapentin 300 mg capsule 300 mg PO TID 04/17/21 04/17/21 Previous Rx's Medication Instructions Recorded cetirizine 10 mg tablet 10 mg PO DAILY #30 tabs 05/04/20 cholecalciferol (vitamin D3) 25 25 mcg PO DAILY #30 caps 05/16/20 mcg (1,000 unit) capsule certolizumab pegol 400 mg/2 mL 400 mg (2 mL) subcut Q2W 3 doses 06/14/20 (200 mg/mL x2) subcutaneous #1 ea syringe kit (Cimzia) fankxuwvib-axaaqnpzbkzgp-kfugqwnk 1 cap PO Q6H PRN pain #10 caps 09/18/20 50 mg-300 mg-40 mg capsule (Fioricet) pantoprazole 40 mg tablet,delayed 40 mg PO DAILY #14 tabs 10/08/20 release (Protonix) meclizine 25 mg tablet 25 mg PO TID PRN dizziness #20 tabs 11/09/20 ibuprofen 600 mg tablet 600 mg PO Q8H PRN pain #20 tabs 02/06/21 medroxyprogesterone 10 mg tablet 10 mg PO DAILY #10 tabs 04/17/21 (Provera) acetaminophen 325 mg tablet 650 mg PO Q4H PRN pain #20 tabs 05/06/21 (Tylenol) ciprofloxacin HCl 500 mg tablet 500 mg PO BID #14 tabs 05/06/21 phenazopyridine 200 mg tablet 200 mg PO TID PRN pain 6 doses #10 05/06/21 (Pyridium) tabs cyclobenzaprine 10 mg tablet 10 mg PO TID PRN muscle spasm #14 09/02/21 tabs ondansetron 4 mg disintegrating 4 mg PO Q8H PRN nausea and 09/02/21 tablet vomiting #20 tabs PNV 153-FA 400 mcg-om3 35 mg-dha 1 tab PO DAILY #30 tabs 10/05/21 25 mg-epa 5 mg-fish oil chew tablet ( Gummies) ondansetron 4 mg disintegrating 4 mg PO Q8H PRN nausea and 11/11/21 tablet vomiting #7 tabs ibuprofen 600 mg tablet 600 mg PO Q6H PRN Pain (Scale 01/23/22 Score 4-6) #30 tabs naproxen 500 mg tablet (Naprosyn) 500 mg PO BID #20 tabs 03/31/22 metoclopramide HCl 10 mg tablet 10 mg PO Q6H PRN nausea and 05/02/22 (Reglan) vomiting #14 tabs Allergies Allergy/AdvReac Type Severity Reaction Status Date / Time No Known Allergies Allergy Verified 05/02/22 09:00 Review of Systems Review of Systems: Yes all other systems are reviewed and are negative [facility] Past Medical History Attestation statement: The following information was validated with the patient. Source: old records reviewed Medical History Asthma Early stage of Myofascial pain syndrome Numbness in both hands Polyarthritis Rheumatoid arthritis Surgical History H/O breast biopsy H/O shoulder surgery Hx of section Hx of cholecystectomy Family History Family History Maternal Grandmother Diabetes Father HTN (hypertension) Mother HTN (hypertension) Social History Social History Alcohol intake: never Patient Tobacco Use Status: Never used Tobacco Advance Directives: No Advance Directives Information Provided: Yes Gender identity: Female Physical Exam Vital Signs: Vital Signs: Last Vital Signs Temp 97.9 F 06/02/22 07:13 Pulse 86 06/02/22 07:13 Resp 18 06/02/22 07:13 BP 123/78 06/02/22 07:13 Pulse Ox 98 06/02/22 07:13 O2 Del Method 06/02/22 07:13 BMI result Body Mass Index 39.6 Appearance: Alert.?Oriented to person, place and time. No acute distress.?Normal affect. Eyes: Pupils equal, round and reactive to light.? ENT: TM normal bilaterally. Pharynx normal.?? Neck: Normal inspection.? Neck supple.??No cervical adenopathy CVS: Heart sounds normal. Normal heart rate and rhythm.? Pulses normal.?? Respiratory: No respiratory distress.? Lung sounds clear to auscultation bilaterally?? Abdomen: Soft and non-tender. Normoactive bowel sounds. Skin: Skin warm and dry.? Normal skin color.? ? Extremities: No lower extremity edema.? Neuro: Moves all extremities spontaneously. Sensation intact bilaterally. No motor deficits. Ambulates with normal steady gait. Medical Decision Making Medical Decision Making MDM Narrative: Patient is a 27-year-old female with past medical history of obesity, asthma, polyarthralgia, rheumatoid arthritis, presenting for evaluation of upper respiratory symptoms/ viral symptoms as noted in HPI. COVID-19/influenza/RSV testing today are negative. At this time history and physical exam not consistent with ACS/PE/pneumonia. Abdominal examination is benign, not consistent with acute abdomen, no peritoneal signs, no rigidity, no guarding. Well-appearing, nontoxic, afebrile, no tachycardia or tachypnea/hypoxia. Speaking clear full sentences, ambulatory with steady gait. Discussed conservative treatment including rest, hydration, Tylenol/ibuprofen as needed for fever and body aches, saline nasal spray, humidifier, lwnb-mhg-vhvviqc cold medication. Advised to follow-up with primary care provider as needed, discussed reasons to return back to the emergency department. All questions were answered. Patient discharged home in stable condition. Differential Diagnosis Differential Diagnoses: The differential diagnosis associated with the presentation includes (COVID-19, influenza, RSV, parainfluenza virus, adenovirus, gastroenteritis) Lab Data MDM Lab Attestation statement: I reviewed the patient's lab results. Labs: Lab Results 06/02/22 Range/Units 07:29 Influenza Type A (PCR) NEGATIVE (Negative) Influenza Type B (PCR) NEGATIVE (Negative) RSV RNA Qual (PCR) NEGATIVE (Negative) SARS-CoV-2 RNA (RT-PCR) NEGATIVE (Negative) Tests considered The following testing was considered but not selected: I consider chest x-ray for evaluation of pneumonia, at this time physical examination is not consistent with such, therefore chest x-ray was deferred. Prescription Management I considered prescription management with: Pain Medication and Antibiotic (I considered antibiotic treatment, however at this time suspect viral etiology therefore deferred) Discharge Plan Discharge Clinical Impression: Acute viral syndrome Patient Disposition: Home, Self-Care Instructions: Viral Syndrome (ED) Additional Instructions: Be sure to rest, stay well hydrated drinking plenty of fluids, eat small frequent meals. Tylenol/ibuprofen can be used as needed for fever/pain. Ifza-xqn-oengtkq cold medications may be helpful as well for symptoms. Saline nasal spray, humidifier may be helpful for nasal congestion. You may return to the emergency department with any new or worsening symptoms or concerns. Follow-up with your primary care provider as needed. Should remain out of school/ work until symptoms have resolved and have been without a fever for 24 hours without the use of Tylenol or ibuprofen. Prescriptions: No Action Cimzia 400 mg/2 mL (200 mg/mL x 2) syringe kit 400 mg subcut Q2W Qty: 1 0RF Rx Instructions: administer as 2 equally divided doses at 2 different sites in abdomen or thigh wmpgndtggx-carujtsanhbwt-txzb [Fioricet] 50-300-40 mg capsule 1 cap PO Q6H PRN (Reason: pain) Qty: 10 0RF pantoprazole [Protonix] 40 mg tablet,delayed release (DR/EC) 40 mg PO DAILY Qty: 14 0RF meclizine 25 mg tablet 25 mg PO TID PRN (Reason: dizziness) Qty: 20 0RF cetirizine 10 mg tablet 10 mg PO DAILY Qty: 30 0RF ciprofloxacin HCl 500 mg tablet 500 mg PO BID Qty: 14 0RF phenazopyridine [Pyridium] 200 mg tablet 200 mg PO TID PRN (Reason: pain) Qty: 10 0RF acetaminophen [Tylenol] 325 mg tablet 650 mg PO Q4H PRN (Reason: pain) Qty: 20 0RF Gummies 400 mcg-35 mg- 25 mg-5 mg tablet,chewable 1 tab PO DAILY Qty: 30 4RF ondansetron 4 mg tablet,disintegrating 4 mg PO Q8H PRN (Reason: nausea and vomiting) Qty: 7 0RF ibuprofen 600 mg tablet 600 mg PO Q6H PRN (Reason: Pain (Scale Score 4-6)) Qty: 30 0RF metoclopramide HCl [Reglan] 10 mg tablet 10 mg PO Q6H PRN (Reason: nausea and vomiting) Qty: 14 0RF ibuprofen 600 mg tablet 600 mg PO Q8H PRN (Reason: pain) Qty: 20 0RF cyclobenzaprine 10 mg tablet 10 mg PO TID PRN (Reason: muscle spasm) Qty: 14 0RF ondansetron 4 mg tablet,disintegrating 4 mg PO Q8H PRN (Reason: nausea and vomiting) Qty: 20 0RF naproxen [Naprosyn] 500 mg tablet 500 mg PO BID Qty: 20 0RF acetaminophen 650 mg/20.3 mL solution 650 mg PO Q6H PRN albuterol sulfate 90 mcg/actuation HFA aerosol inhaler 2 puff inhalation Q6H PRN cholecalciferol (vitamin D3) 25 mcg (1,000 unit) capsule 25 mcg PO DAILY Qty: 30 5RF duloxetine [Cymbalta] 60 mg capsule,delayed release(DR/EC) 60 mg PO DAILY gabapentin 300 mg capsule 300 mg PO TID medroxyprogesterone [Provera] 10 mg tablet 10 mg PO DAILY Qty: 10 0RF Referrals: Marzena Strong MD [Primary Care Provider] -
== END 2022-06-02 09:12 | disposition home or self-care (01) ==
PROVIDERS: Emergency Provider Emergency Medicine; PCP Internal Medicine
DX: B34.9 Viral infection, unspecified (principal); R51.9 Headache, unspecified; R10.13 Epigastric pain; R05.9 Cough, unspecified; Z20.822 Contact with and (suspected) exposure to COVID-19; Z20.828 Contact with and (suspected) exposure to other viral communicable diseases
CPT/HCPCS: 0241U; 93005; 99283

== ENCOUNTER → 2022-09-10 12:52 | Outpatient (BNVA) | payer MEDICAID, SELFPAY | PROVIDERS: PCP Internal Medicine; Visit Provider Physician Assistant Surgical ==

== ENCOUNTER 2022-10-18 10:23 | Outpatient (REF) | payer MEDICAID, SELFPAY ==
[2022-10-24 09:08] LABS: H Pylori Breath Test Negative (Negative)
== END 2022-10-18 10:24 | disposition home or self-care (01) ==
LOC: HO.LNP 10:23
PROVIDERS: PCP Internal Medicine; Visit Provider Physician Assistant Surgical
DX: E66.01 Morbid (severe) obesity due to excess calories (principal); R06.83 Snoring; Z71.3 Dietary counseling and surveillance; Z68.42 Body mass index [BMI] 45.0-49.9, adult
CPT/HCPCS: 36415; 83013; 99202; 99211

== ENCOUNTER 2022-10-22 09:08 | Outpatient (REF) | payer MEDICAID, SELFPAY ==
--- NOTE | ~2022-10-22 | XR_ITS ---
EXAMINATION: CHEST 2 VIEWS CLINICAL INFORMATION: E66.01 - Morbid (severe) obesity due to excess calories. COMPARISON: 07/26/2020. TECHNIQUE: PA and lateral views of the chest obtained. FINDINGS: The lungs are hypoexpanded. No focal infiltrate, effusion, edema, or pneumothorax. Cardiac and mediastinal silhouettes are within normal limits for size. No acute bony abnormality. Surgical clips in the right upper quadrant likely from prior cholecystectomy. XR/XR chest 2V IMPRESSION: Hypoexpanded but otherwise no evidence of acute disease.
[2022-10-22 09:35] LABS: MANUAL DIFF FLAG NO
--- NOTE | 2022-10-22 09:35 | ECG_ITS ---
Test Reason : morbid obesity Blood Pressure : / mmHG Vent. Rate : 064 BPM Atrial Rate : 064 BPM P-R Int : 136 ms QRS Dur : 078 ms QT Int : 380 ms P-R-T Axes : 022 027 -03 degrees QTc Int : 392 ms Normal sinus rhythm with sinus arrhythmia Normal ECG When compared with ECG of 02-JUN-2022 07:27, No significant change was found Referred By: Juan Carlos Prince Electronically Signed By:JESUS GREENWOOD MD
[2022-10-22 10:27] LABS: Basophils Percent Auto 0.6 % (0-2); Eosinophils Absolute Auto 0.2 X10*3/uL (0.0-0.4); Eosinophils Percent Auto 3.1 % (0-4); Hematocrit 37.1 % (37.0-47.0); Hemoglobin 11.8 g/dl (12.0-16.0); Imm Gran Abs Auto 0.02 X10*3/uL (0.00-0.03); Imm Gran Pct Auto 0.3 % (0.0-0.4); Lymphocytes Absolute Auto 2.6 X10*3/uL (1.2-4.9); Lymphocytes Percent Auto 37.7 % (20-40); Mean Corpuscular HGB Conc 31.8 g/dl (31.0-35.0); Mean Corpuscular Hemoglobin 26.6 pg (27.0-33.0); Mean Corpuscular Volume 83.6 fL (80.0-98.0); Mean Platelet Volume 10.7 fL (9.4-12.3); Monocytes Absolute Auto 0.5 X10*3/uL (0.1-1.2); Monocytes Percent Auto 7.1 % (2-11); Neutrophils Absolute Auto 3.5 x10*3/uL (2.0-8.3); Neutrophils Percent Auto 51.2 % (45-73); Platelet Count 275 X10*3/uL (160-400); Red Blood Count 4.44 X10*6/uL (4.20-5.50); Red Cell Distribution Width 14.3 % (11.0-16.0); White Blood Count 6.9 X10*3/uL (4.8-10.8)
[2022-10-22 11:12] LABS: Estimated Average Glucose 108 mg/dL; Hemoglobin A1c % 5.4 %
[2022-10-22 11:22] LABS: Alanine Aminotransferase 33 U/L (0-31); Albumin Level 4.1 g/dL (3.5-5.0); Alkaline Phosphatase 68 U/L (39-117); Anion Gap 14 (12-20); Aspartate Amino Transferase 22 U/L (5-31); Bilirubin Total 1.4 mg/dL (0.0-1.0); Blood Urea Nitrogen 9 mg/dL (9-16); C Reactive Protein 1.38 mg/dL (< or = 0.50); Calcium 9.4 mg/dL (8.4-10.2); Carbon Dioxide 23 mmol/L (22-29); Chloride 107 mmol/L (96-108); Cholesterol 185 mg/dL; Estimated Glomerular Filt Rate > 60; Glucose Random 89 mg/dL (60-115); HDL Cholesterol 45 mg/dL; Iron 42 mcg/dL (30-160); LDL Cholesterol Calculated 120 mg/dl; Percent Iron Saturation 12 % (15-50); Potassium 3.8 mmol/L (3.3-5.1); Sodium 140 mmol/L (135-145); Total Iron Binding Capacity 337 mcg/dL (228-428); Total Protein 6.9 g/dL (6.5-8.0); Triglycerides 100 mg/dL; Unsaturated Iron Binding 295 ug/dL
[2022-10-22 11:31] LABS: Ferritin 13 ng/mL (10-122); TSH reflex Free T4 2.94 uIU/mL (0.32-4.0); Vitamin D 25-OH Total 24.3 ng/mL (>30)
[2022-10-22 11:56] LABS: Folate 6.5 ng/mL (> or = 4.0); Vitamin B12 297 pg/mL (200-900)
[2022-10-22 12:04] LABS: Insulin 16 uU/mL (2-29)
[2022-10-24 04:38] LABS: PTHI 105 pg/mL (16-77)
[2022-10-26 02:53] LABS: Zinc 72 mcg/dL (60-130)
[2022-10-26 14:48] LABS: Vitamin B1 9 nmol/L (8-30)
[2022-10-27 00:13] LABS: Vitamin A 32 mcg/dL (38-98)
== END 2022-10-22 09:09 | disposition home or self-care (01) ==
LOC: HO.XRAY 09:08
PROVIDERS: PCP Internal Medicine; Visit Provider Physician Assistant Surgical
DX: E66.01 Morbid (severe) obesity due to excess calories (principal)
CPT/HCPCS: 36415; 71046; 80053; 80061; 82306; 82607; 82728; 82746; 83036; 83525; 83540; 83970; 84425; 84443; 84590; 84630; 85025; 86140; 93005

== ENCOUNTER → 2022-10-22 09:35 | Outpatient (BNV) | payer MEDICAID, SELFPAY | PROVIDERS: PCP Internal Medicine; Visit Provider Internal Medicine Cardiovascular Disease | DX: R07.9 Chest pain, unspecified (principal) | CPT/HCPCS: 93010 ==

== ENCOUNTER 2022-10-23 08:04 | Outpatient (REF) | payer MEDICAID, SELFPAY ==
--- NOTE | ~2022-10-23 | FL_ITS ---
EXAMINATION: XR FLUOROSCOPY UPPER GI WITH AIR CLINICAL INFORMATION: Morbid obesity. COMPARISON: None available. TECHNIQUE: Air-contrast upper GI examination. FINDINGS: There is normal apposition of the vocal cords while saying E. There is normal elevation of the soft palate while saying candy. Patient swallowed thin and thick barium and half-inch diameter barium tablet without difficulty. No tracheal aspiration or nasopharyngeal reflux was identified. No Zenker's diverticulum was seen. There is normal esophageal motility without persistent stricture or mucosal abnormality. There is a moderate size hiatal hernia present with free spontaneous gastroesophageal reflux to the level of the thoracic inlet which cleared slowly. No abnormal mass or ulceration was identified within the stomach. There is no delay in gastric emptying. The duodenal bulb and sweep appeared unremarkable. FLUOROSCOPY TIME: 1.9 minutes. IMAGES: 31 images. 22.187 Gy-cm2 (neil-centimeter squared). FL/FL upper GI w air IMPRESSION: Moderate size hiatal hernia with free gastroesophageal reflux to the level of the thoracic inlet. Otherwise unremarkable study.
== END 2022-10-23 08:05 | disposition home or self-care (01) ==
LOC: HO.XRAY 08:04
PROVIDERS: PCP Internal Medicine; Visit Provider Physician Assistant Surgical
DX: E66.01 Morbid (severe) obesity due to excess calories (principal)
CPT/HCPCS: 74246

== ENCOUNTER → 2022-10-23 08:06 | Outpatient (BNV) | payer MEDICAID, SELFPAY | PROVIDERS: PCP Internal Medicine; Visit Provider Radiology Diagnostic Radiology | DX: E66.9 Obesity, unspecified (principal) | CPT/HCPCS: 74246 ==

== ENCOUNTER 2022-10-24 10:45 | Emergency (ER) | payer MEDICAID, SELFPAY ==
--- NOTE | ~2022-10-24 | NM_ITS ---
EXAMINATION: NM LUNG IMAGE PERFUSION CLINICAL INFORMATION: Chest pain, dyspnea, asthma. CTA chest performed today. COMPARISON: CTA 10/24/2022 TECHNIQUE: 4 mCi of 99m technetium MAA was administered intravenously and imaging of both lungs were obtained multiple projections. Ventilation study was not performed. FINDINGS: There is normal perfusion seen to all segments of both lungs with no defects seen. No ventilation study was performed. NM/NM pul perfusion IMPRESSION: Normal perfusion scan.
--- NOTE | ~2022-10-24 | CT_ITS ---
EXAMINATION: CT ANGIOGRAM OF THE CHEST WITH AND WITHOUT CONTRAST (CT PULMONARY ANGIOGRAM FOR PE) CLINICAL INFORMATION: Reason for Exam sob COMPARISON: None available. TECHNIQUE: Prior to contrast administration, noncontrast localization images were obtained. Subsequently, multidetector volumetric imaging was performed from the thoracic inlet to below the diaphragms following the administration of 80 mL Omnipaque 350 intravenous contrast. No contrast reaction reported Sagittal, coronal, and MIP oblique sagittal reformatted images were obtained on the CT workstation, uploaded to PACS, and reviewed. This CT examination was performed using dose optimization techniques as appropriate, variously including the following: *Automated exposure control *Adjustment of mA and/or kV according to patient size (this includes techniques or standardized protocols for targeted exams where dose is matched to indication/reason for exam; i.e. extremities or head) *Use of iterative reconstruction technique Total exam dose-length product 459 mGy-cm FINDINGS: QUALITY OF STUDY/CONTRAST BOLUS: Unsatisfactory. Most of the contrast is in the left ventricle and aorta and imaging optimal contrast in the pulmonary artery. PULMONARY ARTERIES: Cannot exclude pulmonary emboli THORACIC AORTA: No aneurysm or dissection seen. LUNG: No focal consolidation, nodules or masses. PLEURA: No pleural effusion or pneumothorax. MEDIASTINUM: Normal heart size. No pericardial effusion. No hilar or mediastinal lymphadenopathy. No evidence of septal bowing or right heart strain. There is a small hiatal hernia. CORONARY ARTERY CALCIFICATION: None visualized on this study. CHEST WALL/AXILLA: No axillary or internal mammary lymphadenopathy. OSSEOUS STRUCTURES: No acute or suspicious osseous abnormality. UPPER ABDOMEN: The liver is diffusely attenuated without any focal lesion or intrahepatic ductal dilatation. No reflux of contrast into the hepatic veins to suggest elevated right heart pressures. CT/CT angio chest PE protocol IMPRESSION: 1. Nondiagnostic exam for PE. Consider repeat if there is high suspicion for PE. 2. No evidence of aortic dissection or aneurysm. 3. Small hiatal hernia. 4. VTE: indeterminate.
--- NOTE | ~2022-10-24 | XR_ITS ---
EXAMINATION: XR CHEST CLINICAL INFORMATION: Chest pain. COMPARISON: 10/22/2022 chest radiographs. TECHNIQUE: 2 views of the chest were obtained. FINDINGS: No significant abnormality is noted involving the heart, lungs, mediastinum, bony thorax or soft tissues. Incidental partial visualization of residual oral contrast within the visualized colon. XR/XR chest 2V IMPRESSION: No acute cardiopulmonary process.
--- NOTE | 2022-10-24 10:52 | ECG_ITS ---
Test Reason : cp Blood Pressure : / mmHG Vent. Rate : 080 BPM Atrial Rate : 080 BPM P-R Int : 146 ms QRS Dur : 082 ms QT Int : 360 ms P-R-T Axes : 030 022 004 degrees QTc Int : 415 ms Normal sinus rhythm Normal ECG When compared with ECG of 22-OCT-2022 09:36, No significant change was found Referred By: Generic ED Physician Electronically Signed By:JESUS GREENWOOD MD
--- NOTE | 2022-10-24 11:08 | ED.GENADULT ---
HPI - General Adult General Chief complaint: Chest Pain Stated complaint: chest pain Time Seen by Provider: 10/24/22 12:59 Related Data Previous Rx's Medication Instructions Recorded cholecalciferol (vitamin D3) 125 125 mcg PO DAILY 90 days #90 caps 10/22/22 mcg (5,000 unit) capsule cyanocobalamin (vitamin B-12) 500 500 mcg PO DAILY 90 days #90 tabs 10/22/22 mcg tablet vitamin A palmitate 3,000 mcg 3,000 mcg PO DAILY 90 days #90 caps 10/28/22 (10,000 unit) capsule Allergies Allergy/AdvReac Type Severity Reaction Status Date / Time No Known Allergies Allergy Verified 10/18/22 11:39 PMFSH Past Medical History Medical History Asthma Early stage of Myofascial pain syndrome Numbness in both hands Polyarthritis Rheumatoid arthritis Surgical History H/O breast biopsy H/O shoulder surgery Hx of section Hx of cholecystectomy Family History Family History Maternal Grandmother Diabetes Father HTN (hypertension) Mother HTN (hypertension) Social History Social History Alcohol intake: never Patient Tobacco Use Status: Never used Tobacco Gender identity: Female Physical Exam ED Vital Signs: BMI result Body Mass Index 46.1 Course Course Course Narrative: This is a rapid medical exam: Additional HPI, ROS, PE not included below will be deferred to primary provider. Patient is a 27-year-old Croatian-speaking female with history of fibromyalgia, polymyalgia, rheumatoid arthritis presenting to the emergency department with complaint of chest pain for the past 2 days, also complains of mild non-productive cough. Denies fevers. Plan: EKG, labs, CXR Medications Administered Discontinued Medications Generic Name Dose Route Start Last Admin Trade Name Freq PRN Reason Stop Dose Admin Iohexol 100 ml 10/24/22 14:30 10/24/22 14:31 Iohexol 350 Mg/Ml 100 Ml Infus..Btl IV 10/24/22 14:31 65 ml ONCE ONE Administration Medical Decision Making Lab Data 10/24/22 11:17 10/24/22 11:17 Labs: Lab Results 10/24/22 10/24/22 10/24/22 Range/Units 11:17 11:17 11:17 WBC 7.5 (4.8-10.8) X10*3/uL RBC 4.54 (4.20-5.50) X10*6/uL Hgb 12.2 (12.0-16.0) g/dl Hct 37.7 (37.0-47.0) % MCV 83.0 (80.0-98.0) fL MCH 26.9 L (27.0-33.0) pg MCHC 32.4 (31.0-35.0) g/dl RDW 14.4 (11.0-16.0) % Plt Count 272 (160-400) X10*3/uL MPV 10.0 (9.4-12.3) fL Immature Gran % (Auto) 0.3 (0.0-0.4) % Neut % (Auto) 56.7 (45-73) % Lymph % (Auto) 33.2 (20-40) % [place] % (Auto) 5.5 (2-11) % Eos % (Auto) 3.8 (0-4) % Baso % (Auto) 0.5 (0-2) % Lymph # (Auto) 2.5 (1.2-4.9) X10*3/uL [place] # (Auto) 0.4 (0.1-1.2) X10*3/uL Eos # (Auto) 0.3 (0.0-0.4) X10*3/uL Baso # (Auto) 0.0 (0.0-0.2) X10*3/uL Abs Immat Gran (auto) 0.02 (0.00-0.03) X10*3/uL Absolute Neuts (auto) 4.2 (2.0-8.3) x10*3/uL Absolute Nucleated RBC 0.000 (0.0-0.012) X10*3/uL Nucleated RBC % (auto) 0.0 (0.0-0.2) /100WBC D-Dimer High Sensitivty NG/ML Sodium 138 (135-145) mmol/L Potassium 3.7 (3.3-5.1) mmol/L Chloride 109 H (96-108) mmol/L Carbon Dioxide 21 L (22-29) mmol/L Anion Gap 12 (12-20) BUN 12 (9-16) mg/dL Creatinine 0.76 (0.5-1.4) mg/dL Estim Creat Clear Calc 130.6 Estimated GFR > 60 Random Glucose 127 H (60-115) mg/dL Calcium 9.9 (8.4-10.2) mg/dL Troponin I High Sens 4.4 (<3.5-17.0) ng/L Beta HCG, Quant mIU/mL 10/24/22 10/24/22 10/24/22 Range/Units 11:17 16:19 16:19 WBC (4.8-10.8) X10*3/uL RBC (4.20-5.50) X10*6/uL Hgb (12.0-16.0) g/dl Hct (37.0-47.0) % MCV (80.0-98.0) fL MCH (27.0-33.0) pg MCHC (31.0-35.0) g/dl RDW (11.0-16.0) % Plt Count (160-400) X10*3/uL MPV (9.4-12.3) fL Immature Gran % (Auto) (0.0-0.4) % Neut % (Auto) (45-73) % Lymph % (Auto) (20-40) % [place] % (Auto) (2-11) % Eos % (Auto) (0-4) % Baso % (Auto) (0-2) % Lymph # (Auto) (1.2-4.9) X10*3/uL [place] # (Auto) (0.1-1.2) X10*3/uL Eos # (Auto) (0.0-0.4) X10*3/uL Baso # (Auto) (0.0-0.2) X10*3/uL Abs Immat Gran (auto) (0.00-0.03) X10*3/uL Absolute Neuts (auto) (2.0-8.3) x10*3/uL Absolute Nucleated RBC (0.0-0.012) X10*3/uL Nucleated RBC % (auto) (0.0-0.2) /100WBC D-Dimer High Sensitivty < 150 NG/ML Sodium (135-145) mmol/L Potassium (3.3-5.1) mmol/L Chloride (96-108) mmol/L Carbon Dioxide (22-29) mmol/L Anion Gap (12-20) BUN (9-16) mg/dL Creatinine (0.5-1.4) mg/dL Estim Creat Clear Calc Estimated GFR Random Glucose (60-115) mg/dL Calcium (8.4-10.2) mg/dL Troponin I High Sens < 2.7 (<3.5-17.0) ng/L Beta HCG, Quant < 2 mIU/mL Discharge Plan Discharge Clinical Impression: Chest pain Patient Disposition: Home, Self-Care Instructions: Chest Pain (ED) Prescriptions: No Action cholecalciferol (vitamin D3) 125 mcg (5,000 unit) capsule 125 mcg PO DAILY 90 Days Qty: 90 1RF cyanocobalamin (vitamin B-12) 500 mcg tablet 500 mcg PO DAILY 90 Days Qty: 90 0RF vitamin A palmitate 3,000 mcg (10,000 unit) capsule 3,000 mcg PO DAILY 90 Days Qty: 90 0RF Referrals: Marzena Strong MD [Primary Care Provider] - Interventions: ED Discharge Assessment Last Done: 10/24/22 19:28 Discharge Date/Time: 10/24/22 19:28
[2022-10-24 11:09] VITALS: BP 126/79; PULSE 83; RESP 16; TEMP 36.6; O2SAT 100; BMI 46.1
[2022-10-24 11:22] LABS: MANUAL DIFF FLAG NO
[2022-10-24 11:23] LABS: Basophils Percent Auto 0.5 % (0-2); Eosinophils Absolute Auto 0.3 X10*3/uL (0.0-0.4); Eosinophils Percent Auto 3.8 % (0-4); Hematocrit 37.7 % (37.0-47.0); Hemoglobin 12.2 g/dl (12.0-16.0); Imm Gran Abs Auto 0.02 X10*3/uL (0.00-0.03); Imm Gran Pct Auto 0.3 % (0.0-0.4); Lymphocytes Absolute Auto 2.5 X10*3/uL (1.2-4.9); Lymphocytes Percent Auto 33.2 % (20-40); Mean Corpuscular HGB Conc 32.4 g/dl (31.0-35.0); Mean Corpuscular Hemoglobin 26.9 pg (27.0-33.0); Monocytes Absolute Auto 0.4 X10*3/uL (0.1-1.2); Monocytes Percent Auto 5.5 % (2-11); Neutrophils Absolute Auto 4.2 x10*3/uL (2.0-8.3); Neutrophils Percent Auto 56.7 % (45-73); Platelet Count 272 X10*3/uL (160-400); Red Blood Count 4.54 X10*6/uL (4.20-5.50); Red Cell Distribution Width 14.4 % (11.0-16.0); White Blood Count 7.5 X10*3/uL (4.8-10.8)
[2022-10-24 11:35] LABS: Anion Gap 12 (12-20); Blood Urea Nitrogen 12 mg/dL (9-16); Calcium 9.9 mg/dL (8.4-10.2); Carbon Dioxide 21 mmol/L (22-29); Chloride 109 mmol/L (96-108); Creatinine Clr Calc Pharmacy 130.6; Estimated Glomerular Filt Rate > 60; Glucose Random 127 mg/dL (60-115); Potassium 3.7 mmol/L (3.3-5.1); Sodium 138 mmol/L (135-145)
[2022-10-24 11:43] LABS: Troponin-I High Sensitivity 4.4 ng/L (<3.5-17.0)
[2022-10-24 11:49] LABS: HCG Quantitative < 2 mIU/mL
--- NOTE | 2022-10-24 13:31 | ED_ITS ---
HPI - Chest Pain General Chief Complaint: Chest Pain Stated Complaint: chest pain Time Seen by Provider: 10/24/22 12:59 History of Present Illness HPI narrative: Patient is 27-year-old female presents today with having chest pain that is been ongoing for the last 2 days. Fairly constant. Associated some mild pain to both knees. She has a history of rheumatoid arthritis. Also history of lupus. Not on blood thinners. No coughing or congestion or upper story symptoms. Sometimes the pain is worse with deep breath. She has no history of diabetes, hypertension, high cholesterol, smoking. Patient is from home. No travel history. Currently on Depo not on control pills. No fever no chills no cough no congestion or respiratory symptoms. Related Data Previous Rx's Medication Instructions Recorded cholecalciferol (vitamin D3) 125 125 mcg PO DAILY 90 days #90 caps 10/22/22 mcg (5,000 unit) capsule cyanocobalamin (vitamin B-12) 500 500 mcg PO DAILY 90 days #90 tabs 10/22/22 mcg tablet Allergies Allergy/AdvReac Type Severity Reaction Status Date / Time No Known Allergies Allergy Verified 10/18/22 11:39 Review of Systems Review of Systems: Positive chest pain Yes all other systems are reviewed and are negative PMFSH Past Medical History Attestation statement: The following information was validated with the patient. Medical History Asthma Early stage of Myofascial pain syndrome Numbness in both hands Polyarthritis Rheumatoid arthritis Surgical History H/O breast biopsy H/O shoulder surgery Hx of section Hx of cholecystectomy Family History Family History Maternal Grandmother Diabetes Father HTN (hypertension) Mother HTN (hypertension) Social History Social History Alcohol intake: never Patient Tobacco Use Status: Never used Tobacco Advance Directives: No Gender identity: Female Physical Exam Vital Signs: Vital Signs: Last Vital Signs Temp 98.1 F 10/24/22 14:34 Pulse 75 10/24/22 14:34 Resp 12 10/24/22 14:34 BP 103/58 L 10/24/22 14:34 Pulse Ox 100 10/24/22 14:34 O2 Del Method Room Air 10/24/22 14:34 BMI result Body Mass Index 46.1 Appearance: Alert. Oriented X3. No acute distress. Eyes: Pupils equal, round and reactive to light. ENT: Pharynx normal. Neck: Normal inspection. Neck supple. No lymph nodes noted. No crepitus CVS: Normal heart rate and rhythm. Pulses normal. Normal S1 and S2 Respiratory: No respiratory distress. Breath sounds normal. No Wheezing. No rales Abdomen: Soft and nontender. No rigidity. No distention. good BS x4 Skin: Skin warm and dry. Normal skin color. Normal skin turgor. Extremities: No lower extremity edema. Neurovascular intact to all extremities. No Lacerations. No Rash Neuro: Oriented X 3. No motor deficit. No sensory deficit. Moving all extermities. No slurred speech Medications Administered Discontinued Medications Generic Name Dose Route Start Last Admin Trade Name Freq PRN Reason Stop Dose Admin Iohexol 100 ml 10/24/22 14:30 10/24/22 14:31 Iohexol 350 Mg/Ml 100 Ml Infus..Btl IV 10/24/22 14:31 65 ml ONCE ONE Administration Medical Decision Making Medical Decision Making [facility] Narrative: Patient presented with chest pain worse with deep breath history of rheumatoid arthritis history of lupus patient complaining of chest pain that is sharp. EKG fine to my interpretation showed a sinus rhythm heart rate is 70 MD QRS QT within normal limits no acute ST segment elevation. Patient unlikely to have ACS. First set of enzymes are negative EKG is normal history atypical for ACS. Patient however has a history of lupus with chest pain that is worse with deep breath. A CTA was done. Unfortunately patient's CTA was nondiagnostic. A V/Q scan was ordered. Currently patient is pending the V/Q scan and a 2nd set of enzymes. Differential Diagnosis Pneumonia, pneumothorax, pulmonary emboli, abdominal aortic aneurysm, ACS Lab Data [facility] Lab Attestation statement: I reviewed the patient's lab results. 10/24/22 11:17 10/24/22 11:17 Labs: Lab Results 10/24/22 10/24/22 10/24/22 Range/Units 11:17 11:17 11:17 WBC 7.5 (4.8-10.8) X10*3/uL RBC 4.54 (4.20-5.50) X10*6/uL Hgb 12.2 (12.0-16.0) g/dl Hct 37.7 (37.0-47.0) % MCV 83.0 (80.0-98.0) fL MCH 26.9 L (27.0-33.0) pg MCHC 32.4 (31.0-35.0) g/dl RDW 14.4 (11.0-16.0) % Plt Count 272 (160-400) X10*3/uL MPV 10.0 (9.4-12.3) fL Immature Gran % (Auto) 0.3 (0.0-0.4) % Neut % (Auto) 56.7 (45-73) % Lymph % (Auto) 33.2 (20-40) % [place] % (Auto) 5.5 (2-11) % Eos % (Auto) 3.8 (0-4) % Baso % (Auto) 0.5 (0-2) % Lymph # (Auto) 2.5 (1.2-4.9) X10*3/uL [place] # (Auto) 0.4 (0.1-1.2) X10*3/uL Eos # (Auto) 0.3 (0.0-0.4) X10*3/uL Baso # (Auto) 0.0 (0.0-0.2) X10*3/uL Abs Immat Gran (auto) 0.02 (0.00-0.03) X10*3/uL Absolute Neuts (auto) 4.2 (2.0-8.3) x10*3/uL Absolute Nucleated RBC 0.000 (0.0-0.012) X10*3/uL Nucleated RBC % (auto) 0.0 (0.0-0.2) /100WBC Sodium 138 (135-145) mmol/L Potassium 3.7 (3.3-5.1) mmol/L Chloride 109 H (96-108) mmol/L Carbon Dioxide 21 L (22-29) mmol/L Anion Gap 12 (12-20) BUN 12 (9-16) mg/dL Creatinine 0.76 (0.5-1.4) mg/dL Estim Creat Clear Calc 130.6 Estimated GFR > 60 Random Glucose 127 H (60-115) mg/dL Calcium 9.9 (8.4-10.2) mg/dL Troponin I High Sens 4.4 (<3.5-17.0) ng/L Beta HCG, Quant mIU/mL 10/24/22 Range/Units 11:17 WBC (4.8-10.8) X10*3/uL RBC (4.20-5.50) X10*6/uL Hgb (12.0-16.0) g/dl Hct (37.0-47.0) % MCV (80.0-98.0) fL MCH (27.0-33.0) pg MCHC (31.0-35.0) g/dl RDW (11.0-16.0) % Plt Count (160-400) X10*3/uL MPV (9.4-12.3) fL Immature Gran % (Auto) (0.0-0.4) % Neut % (Auto) (45-73) % Lymph % (Auto) (20-40) % [place] % (Auto) (2-11) % Eos % (Auto) (0-4) % Baso % (Auto) (0-2) % Lymph # (Auto) (1.2-4.9) X10*3/uL [place] # (Auto) (0.1-1.2) X10*3/uL Eos # (Auto) (0.0-0.4) X10*3/uL Baso # (Auto) (0.0-0.2) X10*3/uL Abs Immat Gran (auto) (0.00-0.03) X10*3/uL Absolute Neuts (auto) (2.0-8.3) x10*3/uL Absolute Nucleated RBC (0.0-0.012) X10*3/uL Nucleated RBC % (auto) (0.0-0.2) /100WBC Sodium (135-145) mmol/L Potassium (3.3-5.1) mmol/L Chloride (96-108) mmol/L Carbon Dioxide (22-29) mmol/L Anion Gap (12-20) BUN (9-16) mg/dL Creatinine (0.5-1.4) mg/dL Estim Creat Clear Calc Estimated GFR Random Glucose (60-115) mg/dL Calcium (8.4-10.2) mg/dL Troponin I High Sens (<3.5-17.0) ng/L Beta HCG, Quant < 2 mIU/mL Independent Interpretation I performed an independent interpretation of an: EKG Interpretation: Sinus heart rate is 70 MD QRS QTC within normal limits there is no acute ST segment elevation Discharge Plan Discharge Clinical Impression: Chest pain Patient Disposition: Still a Patient Prescriptions: No Action cholecalciferol (vitamin D3) 125 mcg (5,000 unit) capsule 125 mcg PO DAILY 90 Days Qty: 90 1RF cyanocobalamin (vitamin B-12) 500 mcg tablet 500 mcg PO DAILY 90 Days Qty: 90 0RF
[2022-10-24] MEDS: iohexoL 350 MG/ML 100 ML INFUS..BTL IV (14:31)
[2022-10-24 14:34] VITALS: BP 103/58; PULSE 75; RESP 12; TEMP 36.7; O2SAT 100
[2022-10-24 16:51] LABS: Troponin-I High Sensitivity < 2.7 ng/L (<3.5-17.0)
[2022-10-24 16:58] LABS: D Dimer High Sensitivity < 150 NG/ML
--- NOTE | 2022-10-24 17:22 | PC.NURSE ---
pt in nuclear med for scan
== END 2022-10-24 19:28 | disposition home or self-care (01) ==
PROVIDERS: Registered Nurse Emergency; Emergency Provider Emergency Medicine Emergency Medical Services; PCP Internal Medicine
DX: R07.89 Other chest pain (principal); M25.562 Pain in left knee; M25.561 Pain in right knee; Z79.899 Other long term (current) drug therapy
CPT/HCPCS: 36415; 71046; 71275; 78580; 80048; 84484; 84702; 85025; 85379; 93005; 99284; A9540; Q9967

== ENCOUNTER → 2022-10-24 10:52 | Outpatient (BNV) | payer MEDICAID, SELFPAY | PROVIDERS: Emergency Provider Emergency Medicine Emergency Medical Services; PCP Internal Medicine; Visit Provider Internal Medicine Cardiovascular Disease | DX: R07.9 Chest pain, unspecified (principal) | CPT/HCPCS: 93010 ==

== ENCOUNTER 2022-10-29 13:32 | Outpatient (REF) | payer MEDICAID, SELFPAY | END 2022-10-29 13:33 | disposition home or self-care (01) | LOC: HO.LNP 13:32 | PROVIDERS: Visit Provider Student in an Organized Health Care Education/Training Program | DX: R10.84 Generalized abdominal pain (principal) | CPT/HCPCS: 87338 ==

== ENCOUNTER 2022-10-29 16:07 | Outpatient (REF) | payer MEDICAID, SELFPAY | END 2022-10-29 16:08 | disposition home or self-care (01) | LOC: HO.LNP 16:07 | PROVIDERS: Visit Provider Nurse Practitioner Primary Care | DX: R10.84 Generalized abdominal pain (principal); K92.1 Melena | CPT/HCPCS: 82274 ==

== ENCOUNTER 2022-10-31 20:27 | Emergency (ER) | payer MEDICAID, SELFPAY ==
[2022-10-31 21:03] VITALS: BP 117/84; PULSE 86; RESP 16; TEMP 36; O2SAT 96; BMI 45.3
[2022-10-31 21:22] LABS: MANUAL DIFF FLAG NO
[2022-10-31 21:30] LABS: Basophils Absolute Auto 0.1 X10*3/uL (0.0-0.2); Basophils Percent Auto 0.7 % (0-2); Eosinophils Absolute Auto 0.2 X10*3/uL (0.0-0.4); Eosinophils Percent Auto 2.5 % (0-4); Hematocrit 37.4 % (37.0-47.0); Hemoglobin 12.1 g/dl (12.0-16.0); Imm Gran Abs Auto 0.02 X10*3/uL (0.00-0.03); Imm Gran Pct Auto 0.2 % (0.0-0.4); Lymphocytes Absolute Auto 2.9 X10*3/uL (1.2-4.9); Lymphocytes Percent Auto 35.4 % (20-40); Mean Corpuscular HGB Conc 32.4 g/dl (31.0-35.0); Mean Corpuscular Volume 83.5 fL (80.0-98.0); Mean Platelet Volume 10.2 fL (9.4-12.3); Monocytes Absolute Auto 0.7 X10*3/uL (0.1-1.2); Monocytes Percent Auto 8.3 % (2-11); Neutrophils Absolute Auto 4.4 x10*3/uL (2.0-8.3); Neutrophils Percent Auto 52.9 % (45-73); Platelet Count 273 X10*3/uL (160-400); Red Blood Count 4.48 X10*6/uL (4.20-5.50); Red Cell Distribution Width 14.7 % (11.0-16.0); White Blood Count 8.3 X10*3/uL (4.8-10.8)
[2022-10-31 21:43] LABS: Alanine Aminotransferase 29 U/L (0-31); Albumin Level 4.5 g/dL (3.5-5.0); Alkaline Phosphatase 71 U/L (39-117); Anion Gap 13 (12-20); Aspartate Amino Transferase 20 U/L (5-31); Bilirubin Total 1.1 mg/dL (0.0-1.0); Blood Urea Nitrogen 15 mg/dL (9-16); Calcium 9.7 mg/dL (8.4-10.2); Carbon Dioxide 23 mmol/L (22-29); Chloride 108 mmol/L (96-108); Creatinine Clr Calc Pharmacy 107.5; Estimated Glomerular Filt Rate > 60; Glucose Random 101 mg/dL (60-115); Lipase 25 U/L (8-78); Potassium 3.4 mmol/L (3.3-5.1); Sodium 141 mmol/L (135-145); Total Protein 7.5 g/dL (6.5-8.0)
[2022-10-31 22:09] LABS: Appearance Urine Clear; Color Urine Yellow; Glucose Urine UA Negative (Negative); Leukocyte Esterase Urine Negative (Negative); Nitrite Urine Negative (Negative); Specific Gravity - Urine 1.025 (1.005-1.025); Urine Blood Negative (Negative); Urine Ketones Negative (Negative); Urine Protein Negative (Neg-Trace)
[2022-10-31 22:43] VITALS: BP 120/68; PULSE 71; RESP 16; TEMP 36.9; O2SAT 100
--- NOTE | 2022-10-31 23:48 | ED.GIBLEED ---
HPI - GI Bleed General Chief complaint: GI Bleed Stated complaint: heavy vaginal bleeding Time Seen by Provider: 10/31/22 23:46 Source: patient Mode of arrival: ambulatory Limitations: no limitations History of Present Illness HPI Narrative: Patient no significant past medical history no history of hemorrhoids been having mild nausea diffuse abdominal cramps and bright red blood when she moves bowel stool is normal in color patient brought a picture on her cell phone which showed bright red blood without any stool no history of similar complaints in the past no significant lower abdominal pain Related Data Previous Rx's Medication Instructions Recorded cholecalciferol (vitamin D3) 125 125 mcg PO DAILY 90 days #90 caps 10/22/22 mcg (5,000 unit) capsule cyanocobalamin (vitamin B-12) 500 500 mcg PO DAILY 90 days #90 tabs 10/22/22 mcg tablet vitamin A palmitate 3,000 mcg 3,000 mcg PO DAILY 90 days #90 caps 10/28/22 (10,000 unit) capsule hydrocortisone acetate 25 mg 25 mg [place] BID #12 ea 11/01/22 rectal suppository (Anusol-HC) Allergies Allergy/AdvReac Type Severity Reaction Status Date / Time No Known Allergies Allergy Verified 10/18/22 11:39 Review of Systems Review of Systems: Yes all other systems are reviewed and are negative PMFSH Past Medical History Medical History Asthma Early stage of Myofascial pain syndrome Numbness in both hands Polyarthritis Rheumatoid arthritis Surgical History H/O breast biopsy H/O shoulder surgery Hx of section Hx of cholecystectomy Family History Family History Maternal Grandmother Diabetes Father HTN (hypertension) Mother HTN (hypertension) Social History Social History Alcohol intake: never Patient Tobacco Use Status: Never used Tobacco Smoked in Last 30 Days: No Use of substances other than those prescribed or required for medical reasons: No Advance Directives: No Advance Directives Information Provided: No Patient : No Gender identity: Female Physical Exam Vital Signs: Vital Signs: Last Vital Signs Temp 98.4 F 10/31/22 22:43 Pulse 71 10/31/22 22:43 Resp 16 10/31/22 22:43 BP 120/68 10/31/22 22:43 Pulse Ox 100 10/31/22 22:43 O2 Del Method Room Air 10/31/22 22:43 BMI result Body Mass Index 45.3 Appearance: Alert. Oriented X3. No acute distress. Eyes: PERRLA, No Nystagmus ENT: Pharynx normal. Oral Mucosa moist Neck: Normal inspection. Neck supple. CVS: Normal heart rate and rhythm. Pulses normal. Respiratory: No respiratory distress. Equal air entry bilateral, no wheezing/rales/rhonchi Abdomen: Soft and nontender. Bowel sounds are present, no mass palpable, no CVA tenderness rectal: No external hemorrhoids palpable no blood on the finger Skin: Skin warm and dry. Normal skin color. Normal skin turgor. Extremities: No lower extremity edema. No calf tenderness Neuro: Oriented X 3. No motor deficit. Medical Decision Making Medical Decision Making [facility] Narrative: Likely patient has a hemorrhoid will discharge patient home and is also positive labs are stable advised to follow with PCP/GI Differential Diagnosis Differential Diagnoses: The differential diagnosis associated with the presentation includes Internal hemorrhoid/diverticulitis/angiodysplasia Lab Data [facility] Lab Attestation statement: I reviewed the patient's lab results. 10/31/22 21:17 10/31/22 21:17 Labs: Lab Results 10/31/22 10/31/22 10/31/22 Range/Units 21:17 21:17 22:02 WBC 8.3 (4.8-10.8) X10*3/uL RBC 4.48 (4.20-5.50) X10*6/uL Hgb 12.1 (12.0-16.0) g/dl Hct 37.4 (37.0-47.0) % MCV 83.5 (80.0-98.0) fL MCH 27.0 (27.0-33.0) pg MCHC 32.4 (31.0-35.0) g/dl RDW 14.7 (11.0-16.0) % Plt Count 273 (160-400) X10*3/uL MPV 10.2 (9.4-12.3) fL Immature Gran % (Auto) 0.2 (0.0-0.4) % Neut % (Auto) 52.9 (45-73) % Lymph % (Auto) 35.4 (20-40) % [place] % (Auto) 8.3 (2-11) % Eos % (Auto) 2.5 (0-4) % Baso % (Auto) 0.7 (0-2) % Lymph # (Auto) 2.9 (1.2-4.9) X10*3/uL [place] # (Auto) 0.7 (0.1-1.2) X10*3/uL Eos # (Auto) 0.2 (0.0-0.4) X10*3/uL Baso # (Auto) 0.1 (0.0-0.2) X10*3/uL Abs Immat Gran (auto) 0.02 (0.00-0.03) X10*3/uL Absolute Neuts (auto) 4.4 (2.0-8.3) x10*3/uL Absolute Nucleated RBC 0.000 (0.0-0.012) X10*3/uL Nucleated RBC % (auto) 0.0 (0.0-0.2) /100WBC Sodium 141 (135-145) mmol/L Potassium 3.4 (3.3-5.1) mmol/L Chloride 108 (96-108) mmol/L Carbon Dioxide 23 (22-29) mmol/L Anion Gap 13 (12-20) BUN 15 (9-16) mg/dL Creatinine 0.88 (0.5-1.4) mg/dL Estim Creat Clear Calc 107.5 Estimated GFR > 60 Random Glucose 101 (60-115) mg/dL Calcium 9.7 (8.4-10.2) mg/dL Total Bilirubin 1.1 H (0.0-1.0) mg/dL AST 20 (5-31) U/L ALT 29 (0-31) U/L Alkaline Phosphatase 71 (39-117) U/L Total Protein 7.5 (6.5-8.0) g/dL Albumin 4.5 (3.5-5.0) g/dL Lipase 25 (8-78) U/L Urine Color Yellow Urine Appearance Clear Urine pH 6.0 (5.0-9.0) Ur Specific [place] 1.025 (1.005-1.025) Urine Protein Negative (Neg-Trace) mg/dL Urine Glucose (UA) Negative (Negative) mg/dL Urine Ketones Negative (Negative) mg/dL Urine Blood Negative (Negative) Urine Nitrite Negative (Negative) Ur Leukocyte Esterase Negative (Negative) Discharge Plan Discharge Clinical Impression: Bright red rectal bleeding, Hemorrhoids Patient Disposition: Home, Self-Care Instructions: Hemorrhoids (ED), Rectal Bleeding (ED) Additional Instructions: Likely have a rectal bleed from internal hemorrhoid Avoid straining/constipation Take suppository twice daily Follow-up with infection prevention specialist if not better for further evaluation Prescriptions: New hydrocortisone acetate [Anusol-HC] 25 mg suppository 25 mg [place] BID Qty: 12 0RF No Action cholecalciferol (vitamin D3) 125 mcg (5,000 unit) capsule 125 mcg PO DAILY 90 Days Qty: 90 1RF cyanocobalamin (vitamin B-12) 500 mcg tablet 500 mcg PO DAILY 90 Days Qty: 90 0RF vitamin A palmitate 3,000 mcg (10,000 unit) capsule 3,000 mcg PO DAILY 90 Days Qty: 90 0RF Interventions: ED Discharge Assessment Last Done: 11/01/22 00:15 Discharge Date/Time: 11/01/22 00:25
== END 2022-11-01 00:25 | disposition home or self-care (01) ==
PROVIDERS: Emergency Provider Internal Medicine; PCP Internal Medicine
DX: K62.5 Hemorrhage of anus and rectum (principal); K64.8 Other hemorrhoids; R10.9 Unspecified abdominal pain; E66.9 Obesity, unspecified; Z68.42 Body mass index [BMI] 45.0-49.9, adult
CPT/HCPCS: 36415; 80053; 81003; 83690; 85025; 99283; 99284

== ENCOUNTER 2022-11-01 | Outpatient (REF) | payer MEDICAID, SELFPAY | END 2022-11-01 00:01 | disposition home or self-care (01) | LOC: CF | PROVIDERS: PCP Internal Medicine; Visit Provider Hospitalist | DX: R91.8 Other nonspecific abnormal finding of lung field (principal); M05.9 Rheumatoid arthritis with rheumatoid factor, unspecified; R07.9 Chest pain, unspecified | CPT/HCPCS: 99202 ==

== ENCOUNTER 2022-11-01 12:44 | Outpatient (AMB) | payer MEDICAID, SELFPAY ==
[2022-11-01 13:03] VITALS: BP 124/78; PULSE 76; O2SAT 99; BMI 46.9
--- NOTE | 2022-11-01 13:03 | MHC.OFFVIS ---
Intake Vital Signs 11/01/22 13:03 Height 5 ft 1 in Weight 248 lb 0.321 oz BMI 46.9 BP 124/78 Blood Pressure Location Rt brachial Position Sitting Pulse 76 Pulse Source Pulse Oximeter Pulse Oximetry (%) 99 Oxygen Delivery Method Room Air Intake Visit Reasons: Abnormal CT scan Allergies No Known Allergies Allergy (Verified 11/01/22 13:07) HPI HPI Comments History of Present Illness Details The patient is here for a pulmonary with a known history of rheumatoid arthritis. Patient states that she has had episodes of pleuritic chest pain. Typically on the right side. She has been evaluated in the past for this. More recently she started developing discomfort again. She was evaluated initially at [facility] because she was also having abdominal discomfort. at [facility] initially beginning of October she did undergo CT scan of the abdomen which described to ground-glass nodular densities in the right lower lobe area. No other abnormalities noted. She was then discharged and the patient followed up in the ER at [place]. She was having some issues with GI bleed at that point. She was having bright red blood per rectum. There was a suspicion of hemorrhoids. The patient also at that point had a positive D-dimer so therefore she ended up getting a CTA which without central pulmonary embolisms. However she also had a V/Q scan because it was a suboptimal study. The patient again had the nodular densities noted. There appear to be hazy. Not quite the appearance of a rheumatoid nodule but that is in the differential. The patient is still having some pleuritic discomfort. The nodules are close to the periphery so therefore may have a component of pleuritis. Will go ahead and treated with anti-inflammatory medications. She does have a rheumatology appointment coming up in the next few weeks which is reassuring. In the meantime will going to request blood work. The patient can start Plaquenil to see if she has any improvement. And she can also follow-up with GI. Based on those findings will have to consider repeating the imaging studies. We did talk about potential biopsies if the densities do not improve or worsen. [facility] Medical History (Updated 11/03/22 @ 00:09 by Fracisco Osullivan MD) Asthma Early stage of Hiatal hernia Myofascial pain syndrome Numbness in both hands Polyarthritis Pulmonary nodules Rheumatoid arthritis Surgical History H/O breast biopsy H/O shoulder surgery Hx of section Hx of cholecystectomy Family History Maternal Grandmother Diabetes Father HTN (hypertension) Mother HTN (hypertension) Social History (Updated 11/01/22 @ 13:08 by Christine Tobias CMA) Alcohol intake: never Patient Tobacco Use Status: Former Tobacco user Tobacco use type: Cigarette Gender identity: Female Review of Systems Const Denies fever(s) Eyes Denies change in vision ENT Reports nasal congestion Card Reports chest pain and Reports dyspnea on exertion Resp Reports pain on inspiration, Reports pain with cough, Reports dyspnea on exertion and Denies wheezing GI Reports hematochezia Musc Reports myalgias Skin/Breast Denies rash Sam/Lymph Denies easy bruising and Denies lymphadenopathy Aller/Immun Denies wheezing Physical Exam Vital Signs: Last Vital Signs Pulse 76 11/01/22 13:03 BP 124/78 11/01/22 13:03 Pulse Ox 99 11/01/22 13:03 Oxygen Delivery Method Room Air 11/01/22 13:03 BMI result Body Mass Index 46.9 Const General: comfortable HEENT Head: Yes atraumatic Neck Neck: Yes supple Chest Chest palpation & inspection: normal inspection of the chest Resp Effort & Inspection: normal respiratory effort Auscultation: clear to auscultation bilaterally Cardio Rate: regular rate Rhythm: regular rhythm Heart sounds: S1 normal heart sound present and S2 normal heart sound present GI Palpation (GI): Soft to palpation Skin General skin exam: no rashes or lesions noted Extrem General: Yes no clubbing, cyanosis or edema Results Reviewed Results Reviewed: [address] [address] [address] Scan Report Signed Patient: Leah Bernal MR#: [id number] : 1995 Acct:[id number] Age/Sex: 27 / F ADM Date: 10/24/22 Loc: HO.ED Attending Dr: Ordering Physician: Jessica Johnson MD Date of Service: 10/24/22 Procedure(s): CT angio chest PE protocol Accession Number(s): [id number] cc: Jessica Johnson MD~ EXAMINATION: CT ANGIOGRAM OF THE CHEST WITH AND WITHOUT CONTRAST (CT PULMONARY ANGIOGRAM FOR PE) CLINICAL INFORMATION: Reason for Exam sob COMPARISON: None available.? ? TECHNIQUE: Prior to contrast administration, noncontrast localization images were obtained. ? Subsequently, multidetector volumetric imaging was performed from the thoracic inlet to below the diaphragms following the administration of 80 mL Omnipaque 350 intravenous contrast. No contrast reaction reported Sagittal, coronal, and MIP oblique sagittal reformatted images were obtained on the CT workstation, uploaded to PACS, and reviewed. This CT examination was performed using dose optimization techniques as appropriate, variously including the following: *Automated exposure control *Adjustment of mA and/or kV according to patient size (this includes techniques or standardized protocols for targeted exams where dose is matched to indication/reason for exam; i.e. extremities or head) *Use of iterative reconstruction technique Total exam dose-length product 459 mGy-cm FINDINGS: QUALITY OF STUDY/CONTRAST BOLUS: Unsatisfactory. Most of the contrast is in the left ventricle and aorta and imaging optimal contrast in the pulmonary artery. PULMONARY ARTERIES: Cannot exclude pulmonary emboli? THORACIC AORTA: No aneurysm or dissection seen. LUNG: No focal consolidation, nodules or masses. PLEURA: No pleural effusion or pneumothorax. MEDIASTINUM: Normal heart size.? No pericardial effusion.? No hilar or mediastinal lymphadenopathy.? No evidence of septal bowing or right heart strain. There is a small hiatal hernia. CORONARY ARTERY CALCIFICATION: None visualized on this study. CHEST WALL/AXILLA: No axillary or internal mammary lymphadenopathy. OSSEOUS STRUCTURES: No acute or suspicious osseous abnormality.? UPPER ABDOMEN: The liver is diffusely attenuated without any focal lesion or intrahepatic ductal dilatation.? No reflux of contrast into the hepatic veins to suggest elevated right heart pressures. CT/CT angio chest PE protocol IMPRESSION: 1.? Nondiagnostic exam for PE. Consider repeat if there is high suspicion for PE. 2.? No evidence of aortic dissection or aneurysm. 3.? Small hiatal hernia. 4.? VTE: indeterminate. ? ? Dictated By: Mark Vasquez MD Signed By: <Electronically signed by Mark Vasquez MD in OV> 10/24/22 1523 DD/ 1419 TD/TT:? Sample Processor: MSM Assessment & Plan Assessment & Plan (1) Seropositive rheumatoid arthritis: Code(s): M05.9 - Rheumatoid arthritis with rheumatoid factor, unspecified (2) Pulmonary nodules: Code(s): R91.8 - Other nonspecific abnormal finding of lung field (3) Hiatal hernia: Code(s): K44.9 - Diaphragmatic hernia without obstruction or gangrene (4) Chest pain: Code(s): R07.9 - Chest pain, unspecified Qualifiers: Chest pain type: unspecified Qualified Code(s): R07.9 - Chest pain, unspecified Orders: Orders ANCA Vasculitides 11/01/22 M05.9 - Rheumatoid arthritis with rheumatoid factor, unspecified, R91.8 - Other nonspecific abnormal finding of lung field Anti DNA DS Antibody 11/01/22 M05.9 - Rheumatoid arthritis with rheumatoid factor, unspecified, R91.8 - Other nonspecific abnormal finding of lung field ISAMAR Reflex Titer and Pattern 11/01/22 M05.9 - Rheumatoid arthritis with rheumatoid factor, unspecified, R91.8 - Other nonspecific abnormal finding of lung field Complete Blood Count Auto Diff 11/01/22 M05.9 - Rheumatoid arthritis with rheumatoid factor, unspecified, R91.8 - Other nonspecific abnormal finding of lung field Basic Metabolic Panel 11/01/22 M05.9 - Rheumatoid arthritis with rheumatoid factor, unspecified, R91.8 - Other nonspecific abnormal finding of lung field Erythrocyte Sedimentation Rate 11/01/22 M05.9 - Rheumatoid arthritis with rheumatoid factor, unspecified, R91.8 - Other nonspecific abnormal finding of lung field PFT pulmonary function test 11/01/22 R91.8 - Other nonspecific abnormal finding of lung field Referrals Gastroenterology Referral K92.2 - Gastrointestinal hemorrhage, unspecified Medications: New omeprazole 40 mg PO DAILY 30 days 30 caps 6RF hydroxychloroquine (Plaquenil) 200 mg PO DAILY 30 days 30 tabs 6RF Coding Level of Care Code New Pt Level 5 (89917) Diagnoses Seropositive rheumatoid arthritis M05.9 Pulmonary nodules R91.8 Hiatal hernia K44.9 Chest pain R07.9 Chest pain type: unspecified Time Spent (min) 50
== END 2022-11-01 13:30 | disposition home or self-care (01) ==
PROVIDERS: PCP Internal Medicine; Visit Provider Hospitalist
DX: M05.9 Rheumatoid arthritis with rheumatoid factor, unspecified (principal); R91.8 Other nonspecific abnormal finding of lung field; K44.9 Diaphragmatic hernia without obstruction or gangrene; R07.9 Chest pain, unspecified
CPT/HCPCS: 99204

== ENCOUNTER 2022-11-01 13:31 | Outpatient (REF) | payer MEDICAID, SELFPAY ==
[2022-11-01 14:06] LABS: Basophils Percent Auto 0.4 % (0-2); Eosinophils Absolute Auto 0.2 X10*3/uL (0.0-0.4); Eosinophils Percent Auto 2.6 % (0-4); Hematocrit 37.2 % (37.0-47.0); Hemoglobin 12.1 g/dl (12.0-16.0); Imm Gran Abs Auto 0.02 X10*3/uL (0.00-0.03); Imm Gran Pct Auto 0.3 % (0.0-0.4); Lymphocytes Absolute Auto 2.6 X10*3/uL (1.2-4.9); Lymphocytes Percent Auto 36.3 % (20-40); MANUAL DIFF FLAG NO; Mean Corpuscular HGB Conc 32.5 g/dl (31.0-35.0); Mean Corpuscular Hemoglobin 27.1 pg (27.0-33.0); Mean Corpuscular Volume 83.4 fL (80.0-98.0); Mean Platelet Volume 10.6 fL (9.4-12.3); Monocytes Absolute Auto 0.6 X10*3/uL (0.1-1.2); Monocytes Percent Auto 8.1 % (2-11); Neutrophils Absolute Auto 3.7 x10*3/uL (2.0-8.3); Neutrophils Percent Auto 52.3 % (45-73); Platelet Count 281 X10*3/uL (160-400); Red Blood Count 4.46 X10*6/uL (4.20-5.50); Red Cell Distribution Width 14.7 % (11.0-16.0)
[2022-11-01 14:36] LABS: Anion Gap 11 (12-20); Blood Urea Nitrogen 8 mg/dL (9-16); Calcium 9.5 mg/dL (8.4-10.2); Carbon Dioxide 24 mmol/L (22-29); Chloride 110 mmol/L (96-108); Estimated Glomerular Filt Rate > 60; Glucose Random 115 mg/dL (60-115); Potassium 3.6 mmol/L (3.3-5.1); Sodium 141 mmol/L (135-145)
[2022-11-01 15:07] LABS: Erythrocyte Sedimentation Rate 17 MM/HR (0-20)
[2022-11-05 19:48] LABS: Anti DNA DS Antibody <1 IU/mL; Myeloperoxidase Antibody <1.0 AI; Proteinase 3 PR3 Antibodies <1.0 AI
[2022-11-07 11:04] LABS: Anti Nuclear Antibody Screen NEGATIVE (NEGATIVE)
== END 2022-11-01 13:32 | disposition home or self-care (01) ==
LOC: HO.LAB 13:31
PROVIDERS: Visit Provider Hospitalist
DX: M05.9 Rheumatoid arthritis with rheumatoid factor, unspecified (principal); R91.8 Other nonspecific abnormal finding of lung field
CPT/HCPCS: 36415; 80048; 85025; 85652; 86021; 86038; 86225

== ENCOUNTER 2022-11-05 10:25 | Outpatient (AMB) | payer MEDICAID, SELFPAY ==
--- NOTE | 2022-11-05 11:11 | A.OFFVIS_ITS ---
Intake VS Expanded 11/05/22 11:17 Height 5 ft 1 in Weight 244 lb 9.6 oz BMI 46.2 BP 127/89 Blood Pressure Location Rt brachial Blood Pressure Position Sitting Pulse 77 Pulse Source Pulse Oximeter Temp 96.9 F Temperature Source Temporal Artery Scan Pulse Oximetry 99 Oxygen Delivery Method Room Air Body Fat 114.2 Body Fat Percentage 46.7 Free Fat Mass 130.2 Muscle Mass 123.6 Visceral Mass 13.0 Water Mass 93.6 BMR 1,876 Intake Visit Reasons: (OV) F/U SWL Sales Administration Manager Required: Yes Sales Administration Manager Name: office cmi Allergies No Known Allergies Allergy (Verified 11/05/22 11:14) Medication List - Last Reconciled 11/05/22 by [place] Villalta cholecalciferol (vitamin D3) 125 mcg PO DAILY 90 days cyanocobalamin (vitamin B-12) 500 mcg PO DAILY 90 days hydrocortisone acetate (Anusol-HC) 25 mg ND BID hydroxychloroquine (Plaquenil) 200 mg PO DAILY 30 days omeprazole 40 mg PO DAILY 30 days vitamin A palmitate 3,000 mcg PO DAILY 90 days HPI HPI Comments History of Present Illness Details The patient is a pleasant 27 year old female who returns to the clinic for pre-operative surgical weight loss management. They were last seen in the office on 10/18/22, recorded weight at that time was 250.2 pounds, with a BMI of 47.3. Today's weight is 244.6 pounds and BMI is 46.2. There has been a weight loss of 5.6 pounds since initiating the surgical weight loss program on 10/18/22 with a total body weight loss of 2.2 %. Pre op work up completed as follows: SWL classes:? []/8 BH appts: 11/18/22 ? ? RD appts: 11/05/22 Labs: 10/22/22-low A, D, B12:297 H. pylori: 10/18/22-neg CXR: 10/22/22-nad EK10/22/22-normal ABD U/S: 11/01/22-missed UGI: 10/23/22-mod HH, GERD The patient reports she has noticed increased reflux over the last 3-4 months. She is not sure why she is taking Plaquenil and states she only takes it sometimes. She states she she was not able to start the meal plan and she is just going to buy the supplies today. Stopped soda, sweets and candy, recommended current meal plan includes: 3 Premier protein shakes ([employer], [employer], [employer]), (1 scoop in 8 oz low fat unsweetened almond milk each) First shake at 10am-12pm Second shake at? 1pm-3pm 1 protein bar ([employer] Perfect bars at [employer], [employer], or [employer]) at 4pm-6pm. Dinner at 6pm (9 forks of protein and 9 forks of salad/vegetables). Meal to include lean meat (beef, fish, pork, turkey, chicken), cooked vegetables or a salad with olive oil and/or fruits (berries, pears, apples, kiwi). Avoid salt, breads, potatoes, rice, pasta, desserts. Another shake with 1 scoop in 8 oz unsweetened almond milk at 8pm-10pm. Drinking 64-80 oz of water, no longer drinking soda Current exercise plan includes: compa videos, 250-300 calories 4 days per week. [facility] Medical History Asthma Early stage of Hiatal hernia Myofascial pain syndrome Numbness in both hands Polyarthritis Pulmonary nodules Rheumatoid arthritis Surgical History H/O breast biopsy H/O shoulder surgery Hx of section Hx of cholecystectomy Family History Maternal Grandmother Diabetes Father HTN (hypertension) Mother HTN (hypertension) Social History Alcohol intake: never Patient Tobacco Use Status: Former Tobacco user Tobacco use type: Cigarette Gender identity: Female Review of Systems Const All systems reviewed & are unremarkable except as noted in HPI and below Physical Exam Vital Signs: Last Vital Signs Temp 96.9 F 11/05/22 11:17 Pulse 77 11/05/22 11:17 BP 127/89 11/05/22 11:17 Pulse Ox 99 11/05/22 11:17 Oxygen Delivery Method Room Air 11/05/22 11:17 BMI result Body Mass Index 46.2 Const General: healthy appearing and no acute distress Resp Effort & Inspection: normal respiratory effort Auscultation: clear to auscultation bilaterally Cardio Rate: regular rate Rhythm: regular rhythm GI Auscultation: normal bowel sounds Extrem General: Yes normal to inspection Assessment & Plan Assessment & Plan (1) Obesity, morbid, BMI 40.0-49.9: Code(s): E66.01 - Morbid (severe) obesity due to excess calories Plan: will start meal plan encouraged to increase exercise and track calories at the gym as instructed in initial visit Will rtc 1 month Coding Level of Care Code Est Pt Level 3 (68851) Diagnoses Obesity, morbid, BMI 40.0-49.9 E66.01
[2022-11-05 11:17] VITALS: BP 127/89; PULSE 77; TEMP 36.1; O2SAT 99; BMI 46.2
== END 2022-11-05 12:04 | disposition home or self-care (01) ==
PROVIDERS: PCP Internal Medicine; Visit Provider Physician Assistant Surgical
DX: E66.01 Morbid (severe) obesity due to excess calories (principal)
CPT/HCPCS: 99213

== ENCOUNTER → 2022-11-05 10:25 | Outpatient (BNVA) | payer MEDICAID, SELFPAY | PROVIDERS: PCP Internal Medicine; Visit Provider Physician Assistant Surgical | DX: E66.01 Morbid (severe) obesity due to excess calories (principal); Z68.42 Body mass index [BMI] 45.0-49.9, adult | CPT/HCPCS: 99213 ==

== ENCOUNTER → 2022-11-18 13:57 | Outpatient (BNVA) | payer MEDICAID, SELFPAY | PROVIDERS: PCP Internal Medicine; Visit Provider Counselor Mental Health ==

== ENCOUNTER 2022-11-24 17:11 | Emergency (ER) | payer MEDICAID, SELFPAY ==
[2022-11-24 17:32] VITALS: BP 140/89; PULSE 77; RESP 18; TEMP 36.3; O2SAT 98; BMI 41.6
--- NOTE | 2022-11-24 17:34 | ED_ITS ---
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 Patient states that since yesterday she has had body aches and felt generally unwell. Patient denies any dizziness, lightheadedness, abdominal pain, nausea, fever, chills, blurry vision, double vision, loss of vision, chest pain, difficulty breathing, shortness of breath, back pain, night sweats, pain with urination, increased urinary frequency, increased urinary urgency, blood in her urine or stool, syn cope or a near syncopal episode, recent trauma or falls, bowel incontinence, bladder incontinence, bowel retention, bladder retention, or any other complaints at this time. Onset (ago): day(s) (2) Severity: mild Severity scale (1-10): 3 Relieving factors: none Exacerbating factors: none Associated symptoms: denies other symptoms Treatments prior to arrival: none Related Data Previous Rx's Medication Instructions Recorded cholecalciferol (vitamin D3) 125 125 mcg PO DAILY 90 days #90 caps 10/22/22 mcg (5,000 unit) capsule cyanocobalamin (vitamin B-12) 500 500 mcg PO DAILY 90 days #90 tabs 10/22/22 mcg tablet vitamin A palmitate 3,000 mcg 3,000 mcg PO DAILY 90 days #90 caps 10/28/22 (10,000 unit) capsule hydrocortisone acetate 25 mg 25 mg KS BID #12 ea 11/01/22 rectal suppository (Anusol-HC) hydroxychloroquine 200 mg tablet 200 mg PO DAILY 30 days #30 tabs 11/01/22 (Plaquenil) omeprazole 40 mg capsule,delayed 40 mg PO DAILY 30 days #30 caps 11/01/22 release Allergies Allergy/AdvReac Type Severity Reaction Status Date / Time No Known Allergies Allergy Verified 11/24/22 17:32 Review of Systems Constitutional: Constitutional: Reports no additional constitutional complaints, Reports body ache(s), Denies chills, Denies fever(s) and Denies night sweats Eyes: Eyes: Reports no additional eye complaints, Denies blurry vision, Denies change in vision, Denies diplopia, Denies eye discharge, Denies loss of vision and Denies eye pain ENT: Denies dizziness Cardiovascular: Cardiovascular: Reports no additional cardiovascular complaints, Denies chest pain, Denies lightheadedness, Denies Loss of Consciousness and Denies dyspnea Respiratory: Respiratory: Reports no additional respiratory complaints and Denies dyspnea Gastrointestinal: Gastrointestinal: Reports no additional gastrointestinal complaints, Denies abdominal pain, Denies melena, Denies hematochezia, Denies change in bowel habits and Denies change in stool character Genitourinary: Genitourinary: Denies hematuria, Denies urinary frequency, Denies dysuria, Denies urinary incontinence, Denies urinary hesitancy and Denies urinary urgency Musculoskeletal: Musculoskeletal: Reports no additional musculoskeletal complaints, Denies numbness and Denies tingling Neurologic: Denies dizziness, Denies loss of vision, Denies numbness and Denies tingling Psychiatric: Psychiatric: Reports no additional psychiatric complaints Endocrine: Endocrine: Reports no additional endocrine complaints Hematologic/Lymphatic: Hematologic/Lymphatic: Reports no additional hematologic/lymphatic complaints Allergic/Immunologic: Allergic/Immunologic: Reports no additional allergic/immunologic complaints [facility] Past Medical History Attestation statement: The following information was validated with the patient. Source: old records reviewed and nursing notes reviewed Medical History Abnormal laboratory test Asthma COVID-19 Early stage of Hiatal hernia Missed menses Myofascial pain syndrome Numbness in both hands Obesity, morbid, BMI 40.0-49.9 Polyarthritis Pulmonary nodules Rheumatoid arthritis Surgical History H/O breast biopsy H/O shoulder surgery Hx of section Hx of cholecystectomy Family History Family History Maternal Grandmother Diabetes Father HTN (hypertension) Mother HTN (hypertension) Social History Social History Alcohol intake: never Patient Tobacco Use Status: Former Tobacco user Tobacco use type: Cigarette Advance Directives: No Advance Directives Information Provided: Yes Gender identity: Female Physical Exam ED Vital Signs: Vital Signs - 24 hr 11/24/22 17:32 11/24/22 19:28 Temperature 97.4 F 98 F Pulse Rate 77 89 Respiratory Rate 18 18 Blood Pressure 140/89 H 139/88 Pulse Oximetry 98 99 Oxygen Delivery Method Room Air Room Air BMI result Body Mass Index 41.6 Const General: cooperative, no acute distress, alert and awake Nutritional Appearance: well nourished Orientation/consciousness: patient oriented x3 Limitations: no limitations HENMT Head: Yes normal to inspection and Yes atraumatic Ears: hearing grossly normal bilaterally and external ears normal General nose exam: Normal external nose present, no nasal discharge noted and no epistaxis Face and sinus: Yes normal facial exam, No abrasion and No laceration Mouth: Normal oral and palatal mucosa present, no drooling and no muffled voice Eyes General: appearance normal, both eyes and all related structures Periorbital: periorbital findings normal Eyelids: Yes eyelids normal Conjunctivae: conjunctivae normal Pupils: Equal, round and reactive pupils present EOM: EOMs intact bilaterally Neck Neck: Yes normal visual inspection, Yes full ROM and Yes no lymphadenopathy Chest Chest palpation & inspection: normal inspection of the chest Resp Effort & Inspection: normal respiratory effort and able to speak in complete sentences Auscultation: clear to auscultation bilaterally Cardio Rate: regular rate Rhythm: regular rhythm GI Inspection: Yes normal to inspection Palpation (GI): Soft to palpation, not firm, nontender and no guarding Neuro General: patient oriented x3 and moves all extremities Cranial nerves: Yes Equal, round and reactive pupils present Cognition (Neuro): normal cognition Motor exam (neuro): 5/5 motor strength present throughout Sensory Exam: Normal double simultaneous stimulation for sensation Coordination: [id number] test normal Extrem General: Yes normal to inspection, Yes full ROM and Yes capillary refill normal Psych Appearance: grossly normal Mental Status: mental status grossly normal Affect: normal affect Attitude: cooperative Thought process: Normal thought process present Thought content: Normal thought content present Insight: Good insight present (Psych) Course Course Course Narrative: 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 patient denies any coughing or sore throat. Medications Administered Discontinued Medications Generic Name Dose Route Start Last Admin Trade Name Freq PRN Reason Stop Dose Admin Dexamethasone Sodium Phosphate 10 mg 11/24/22 19:33 11/24/22 20:07 Dexamethasone Sod Phosphate 10 Mg/Ml Vial PO 11/24/22 19:34 10 mg ONCE ONE Administration Medical Decision Making Medical Decision Making [facility] Narrative: Patient is a 27 year old assigned female at with a history of asthma and RA presenting to the emergency department today with body aches and feeling generally unwell. Patient's physical exam was unremarkable. Patient's COVID-19 and influenza swabs were negative. I explained my physical exam findings as well as all test results to the patient. I answered all questions asked by the patient. I stressed the importance of the patient taking her medication as prescribed. I stressed the importance of the patient following up with her primary care provider. I stressed the importance of the patient returning to the emergency department immediately if her symptoms were to worsen or if she were to develop any dizziness, shortness of breath, difficulty breathing, chest pain, blurry vision, loss of vision, nausea, vomiting, abdominal pain, fever, chills, back pain, or any other complaints. Patient verbalized agreement and understanding with this treatment plan and discharge. Differential Diagnosis Differential Diagnoses: The differential diagnosis associated with the presentation includes COVID-19 Influenza Viral illness Lab Data [facility] Lab Attestation statement: I reviewed the patient's lab results. My interpretation of these studies and their corresponding values is that they are grossly normal. Labs: Lab Results 11/24/22 11/24/22 Range/Units 18:29 18:29 COVID-19 (KAYLA) Negative (Negative) COVID-19 Clin Com See Note Influenza Type A (VASILE) Negative (Negative) Influenza Type B (VASILE) Negative (Negative) Influenza A & B Note See Note Discharge Plan Discharge Clinical Impression: Upper respiratory infection Patient Disposition: Home, Self-Care Instructions: Upper Respiratory Infection (DC) Additional Instructions: Follow up with your primary care provider. Return to the emergency department immediately if your symptoms worsen or if you develop any dizziness, shortness of breath, difficulty breathing, chest pain, blurry vision, loss of vision, nausea, vomiting, abdominal pain, fever, chills, back pain, or any other complaints. Elizabeth un seguimiento con russo proveedor de atenci?n primaria. Regrese al departamento de emergencias de inmediato si hiram s?ntomas empeoran o si presenta mareos, falta de aire, dificultad para respirar, dolor de pecho, visi?n borrosa, p?rdida de la visi?n, n?useas, v?mitos, dolor abdominal, fiebre, escalofr?os, dolor de espalda o cualquier otras quejas. Prescriptions: No Action cholecalciferol (vitamin D3) 125 mcg (5,000 unit) capsule 125 mcg PO DAILY 90 Days Qty: 90 1RF cyanocobalamin (vitamin B-12) 500 mcg tablet 500 mcg PO DAILY 90 Days Qty: 90 0RF vitamin A palmitate 3,000 mcg (10,000 unit) capsule 3,000 mcg PO DAILY 90 Days Qty: 90 0RF hydrocortisone acetate [Anusol-HC] 25 mg suppository 25 mg KS BID Qty: 12 0RF omeprazole 40 mg capsule,delayed release(DR/EC) 40 mg PO DAILY 30 Days Qty: 30 6RF hydroxychloroquine [Plaquenil] 200 mg tablet 200 mg PO DAILY 30 Days Qty: 30 6RF Referrals: [facility] Family Medicine [Provider Group] (Call to establish and follow up with a primary care provider. If you already have a primary care provider, please follow up with them. Llame para establecer y hacer un seguimiento con un proveedor de atenci?n primaria. Si ya tiene un proveedor de atenci?n primaria, elizabeth un seguimiento con ?l.) [facility] [Provider Group] (Call to establish and follow up with a primary care provider. If you already have a primary care provider, please follow up with them. Llame para establecer y hacer un seguimiento con un proveedor de atenci?n primaria. Si ya tiene un proveedor de atenci?n primaria, elizabeth un seguimiento con ?l.) [facility] [Provider Group] (Call to establish and follow up with a primary care provider. If you already have a primary care provider, please follow up with them. Llame para establecer y hacer un seguimiento con un proveedor de atenci?n primaria. Si ya tiene un proveedor de atenci?n primaria, elizabeth un seguimiento con ?l.) Interventions: ED Discharge Assessment Last Done: 11/24/22 20:31 Discharge Date/Time: 11/24/22 20:31 Print Language: English
[2022-11-24 18:47] LABS: COVID-19 Test Negative (Negative); IDNOW Serial# 08D9AD1C
[2022-11-24 18:50] LABS: IDNOW Serial# BCCEAD1C; Influenza A Negative (Negative); Influenza B2 Negative (Negative)
[2022-11-24 19:28] VITALS: BP 139/88; PULSE 89; RESP 18; TEMP 36.6; O2SAT 99
[2022-11-24] MEDS: dexAMETHasone sod phosphate 10 MG/ML VIAL PO (20:07)
--- NOTE | 2022-11-24 20:28 | PC.NURSE ---
pt medicated per SHAHRIAR- ambrocio'd with self care instruction
== END 2022-11-24 20:31 | disposition home or self-care (01) ==
PROVIDERS: Physician Assistant; Emergency Provider Internal Medicine
DX: R11.2 Nausea with vomiting, unspecified (principal); R19.7 Diarrhea, unspecified; R51.9 Headache, unspecified; Z20.822 Contact with and (suspected) exposure to COVID-19; Z20.828 Contact with and (suspected) exposure to other viral communicable diseases; Z79.899 Other long term (current) drug therapy; Z87.891 Personal history of nicotine dependence
CPT/HCPCS: 87502; 87635; 99283; J1100

== ENCOUNTER → 2022-11-25 15:06 | Outpatient (REF) | payer MEDICAID, SELFPAY | LOC: HO.SL 15:06 | PROVIDERS: PCP Internal Medicine; Visit Provider Physician Assistant Surgical | DX: R06.83 Snoring (principal); E66.01 Morbid (severe) obesity due to excess calories | CPT/HCPCS: 95806 ==

== ENCOUNTER → 2022-11-25 15:26 | Outpatient (BNV) | payer MEDICAID, SELFPAY | PROVIDERS: PCP Internal Medicine; Visit Provider Internal Medicine | DX: R06.83 Snoring (principal) | CPT/HCPCS: 95806 ==

== ENCOUNTER 2022-11-26 11:00 | Outpatient (REF) | payer MEDICAID, SELFPAY ==
[2022-11-26 12:25] LABS: Hematocrit 37.8 % (37.0-47.0); Hemoglobin 12.3 g/dl (12.0-16.0); Mean Corpuscular HGB Conc 32.5 g/dl (31.0-35.0); Mean Corpuscular Hemoglobin 27.3 pg (27.0-33.0); Mean Platelet Volume 10.9 fL (9.4-12.3); Platelet Count 283 X10*3/uL (160-400); Red Cell Distribution Width 14.8 % (11.0-16.0); White Blood Count 9.6 X10*3/uL (4.8-10.8)
== END 2022-11-26 11:01 | disposition home or self-care (01) ==
LOC: HO.LAB 11:00
PROVIDERS: PCP Internal Medicine; Visit Provider Internal Medicine
DX: K62.5 Hemorrhage of anus and rectum (principal)
CPT/HCPCS: 36415; 85027; 99202

== ENCOUNTER 2022-11-26 11:00 | Outpatient (AMB) | payer MEDICAID, SELFPAY ==
--- NOTE | 2022-11-26 11:09 | A.OFFVIS_ITS ---
Intake Vital Signs 11/26/22 11:14 Height 5 ft 1 in Weight 242 lb 8.136 oz BMI 45.8 BP 102/58 L Blood Pressure Location Lt brachial Position Sitting Pulse 76 Intake Visit Reasons: abdominal pains Intake Note: Leah presents in the office as a new patient for abdominal pains. CC: She states that she is having lots of gas and pains in the stomach with acid reflux. She states that she has had many days that she is vomiting with nausea. 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 Pt reports having L sided abdominal discomfort associated with rectal bleeding without any rectal pressure for which she was seen in the emergency room as well. Was noted to have internal hemorrhoids and given hydrocort suppositories which she did not take. THe bleeding subsided by itself in 5 days. Now continues to have intermittent BRBPR on passing BM, scant, noted on wiping. Labs reviewed, no anemia. Fam hx of CRC in mat aunt in 40s. PFSH Medical History Abnormal laboratory test Asthma COVID-19 Early stage of Hiatal hernia Missed menses Myofascial pain syndrome Numbness in both hands Obesity, morbid, BMI 40.0-49.9 Polyarthritis Pulmonary nodules Rheumatoid arthritis Surgical History H/O breast biopsy H/O shoulder surgery Hx of section Hx of cholecystectomy Family History Maternal Grandmother Diabetes Father HTN (hypertension) Mother HTN (hypertension) Maternal Aunt Colon cancer Social History Alcohol intake: never Patient Tobacco Use Status: Former Tobacco user Tobacco use type: Cigarette Gender identity: Female Review of Systems Const All systems reviewed & are unremarkable except as noted in HPI and below Physical Exam Vital Signs: Last Vital Signs Pulse 76 11/26/22 11:14 BP 102/58 L 11/26/22 11:14 BMI result Body Mass Index 45.8 Gen appear: NAD HEENT: nonicteric, no cervical lymphadenopathy Chest: CTA CVS: Regular S1/S2 Abd: soft, nontender, nondistended, bowel sounds + Ext: no peripheral edema Neuro: A/Ox3, noted to move all extremities spontaneously Psych: interacting appropriately Assessment & Plan Assessment & Plan (1) Bright red rectal bleeding: Code(s): K62.5 - Hemorrhage of anus and rectum Plan Most likely rectal outlet bleeding due to hemorrhoids however will proceed with diagnostic colonoscopy given report of abdominal pain associated with it as well as fam hx of CRC in 2nd degree relative at < 50 y.o. Will recheck a CBC to ensure no further drop. Split PEG prep instructions were reviewed with the help of a language interpreter. [place] to be scheduled with 6-8 weeks Orders: Orders Complete Blood Count no Diff Today K62.5 - Hemorrhage of anus and rectum Medications: New peg 3350-electrolytes 236-22.74-6.74 -5.86 gram (Golytely) as per split prep instructions, until fecal effluent is clear 240 mL PO Q10M 4,000 mL 0RF colonoscopy Coding Level of Care Code New Pt Level 4 (78164) Diagnoses Bright red rectal bleeding K62.5
[2022-11-26 11:14] VITALS: BP 102/58; PULSE 76; BMI 45.8
== END 2022-11-26 12:24 | disposition home or self-care (01) ==
PROVIDERS: PCP Internal Medicine; Visit Provider Internal Medicine
DX: K62.5 Hemorrhage of anus and rectum (principal)
CPT/HCPCS: 99204

== ENCOUNTER 2022-11-27 08:08 | Outpatient (REF) | payer MEDICAID, SELFPAY ==
--- NOTE | 2022-11-27 09:12 | PFT_ITS ---
Forced vital capacity 108%, FEV1 102%, FEV1/FVC ratio is 81. [id number] 83% and MVV 112%. Post bronchodilator therapy, there is no significant change. Total lung capacity 105%. Residual volume 87%. ERV 76%. Diffusion capacity 104% CONCLUSION: Normal pulmonary function test, and there is no evidence of obstructive or restrictive pulmonary disorder. Also, no response to bronchodilator therapy. MD LAI Zepeda/MODL / [id number]
== END 2022-11-27 08:09 | disposition home or self-care (01) ==
LOC: HO.RESP 08:08
PROVIDERS: PCP Internal Medicine; Visit Provider Hospitalist
DX: R91.8 Other nonspecific abnormal finding of lung field (principal)
CPT/HCPCS: 94060; 94727; 94729

== ENCOUNTER → 2022-11-27 09:12 | Outpatient (BNV) | payer MEDICAID, SELFPAY | PROVIDERS: PCP Internal Medicine; Visit Provider Internal Medicine | DX: R06.09 Other forms of dyspnea (principal) | CPT/HCPCS: 94060; 94727; 94729 ==

== ENCOUNTER 2022-12-12 12:32 | Outpatient (REF) | payer MEDICAID, SELFPAY ==
--- NOTE | ~2022-12-12 | US_ITS ---
EXAMINATION: US DIAGNOSTIC ULTRASOUND BREAST, LEFT CLINICAL INFORMATION: 27-year-old female complaining of pain left breast in the 11:00, 10:00 axes, as well as the 3:00 and 2:00 axes, and left axilla.. COMPARISON: None available. TECHNIQUE: Ultrasound of the left breast is performed with real-time neil scale imaging and color Doppler. Attention was focused on the areas of pain as indicated by the patient. FINDINGS: There is no focal suspicious finding. There is no solid mass, architectural abnormality, duct ectasia, or edema in the soft tissue planes. There are normal-appearing lymph nodes in the left axilla with no evidence of cortical thickening or loss of fatty sita. There is no sonographic abnormality in the regions of left breast pain 2-3 o'clock axes, and 10-11 o'clock axes. Results are discussed with the patient at time of visit. US/US breast LT limited mamm only IMPRESSION: No findings suspicious for malignancy. No imaging explanation for the patient's complaint of left breast pain and left axillary pain. Normal-appearing left axillary lymph nodes with normal benign appearance. Recommend clinical management of the patient's complaints. ASSESSMENT: BI-RADS 2: Benign RECOMMENDATION: 1. Patient should be managed based on the clinical impression. Decision to proceed with biopsy should be based on clinical grounds and degree of clinical concern. This patient's information was entered into a reminder system with a target due date for their next mammogram.
== END 2022-12-12 12:33 | disposition home or self-care (01) ==
LOC: HO.MAMMO 12:32
PROVIDERS: PCP Internal Medicine; Visit Provider Internal Medicine
DX: N64.4 Mastodynia (principal); M79.622 Pain in left upper arm
CPT/HCPCS: 76642

== ENCOUNTER → 2022-12-12 13:00 | Outpatient (BNV) | payer MEDICAID, SELFPAY | PROVIDERS: PCP Internal Medicine; Visit Provider Radiology Diagnostic Radiology | DX: N64.4 Mastodynia (principal) | CPT/HCPCS: 76642 ==

== ENCOUNTER 2022-12-20 07:47 | Emergency (ER) | payer MEDICAID, SELFPAY ==
[2022-12-20 08:18] VITALS: BP 127/83; PULSE 81; RESP 16; TEMP 36.6; O2SAT 96; BMI 41.6
[2022-12-20 08:57] LABS: COVID-19 Test Negative (Negative); IDNOW Serial# 08D9AD1C
[2022-12-20 09:00] LABS: IDNOW Serial# 08D9AD1C; Strep A Nucleic Acid Negative (Negative)
--- NOTE | 2022-12-20 09:19 | ED.URI ---
HPI - URI/Sore Throat General Chief Complaint: Upper Respiratory Symptoms Stated Complaint: Sore Throat Body Aches Time Seen by Provider: 12/20/22 09:05 Source: patient Mode of arrival: ambulatory Limitations: no limitations History of Present Illness HPI Narrative: 27 yo female with history of RA, asthma, hiatial hernia, hx GI bleed presenting to the ER for evaluation of sore throat diffuse body aches that started yesterday. She also reports low-grade fever yesterday. No known sick contacts. She is able to eat and drink normally although it hurts to swallow. She noticed some bumps on the top of her tongue but not on her tonsils are back of her throat. She states she has joint and body aches. She does not know the name of the medication she is on for RA. 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 She denies any new rashes or joint swelling. No abdominal pain or chest pain. She has a mild cough but is not bringing up any phlegm. MD elicited complaint: sore throat Onset (ago): day(s) (1) Consistency: constant Severity: moderate Able to tolerate fluids by mouth: Yes Exacerbating factors: swallowing Relieving factors: nothing Associated symptoms: fever, myalgias, sore throat and cough Treatments prior to arrival: none Related Data Home Medications Medication Instructions Recorded Confirmed medroxyprogesterone 150 mg/mL mg IM 11/26/22 intramuscular suspension metronidazole 0.75 % topical gel topical DAILY 11/26/22 multivitamin 1 tab PO QAM 11/26/22 Previous Rx's Medication Instructions Recorded cholecalciferol (vitamin D3) 125 125 mcg PO DAILY 90 days #90 caps 10/22/22 mcg (5,000 unit) capsule cyanocobalamin (vitamin B-12) 500 500 mcg PO DAILY 90 days #90 tabs 10/22/22 mcg tablet vitamin A palmitate 3,000 mcg 3,000 mcg PO DAILY 90 days #90 caps 10/28/22 (10,000 unit) capsule omeprazole 40 mg capsule,delayed 40 mg PO DAILY 30 days #30 caps 11/01/22 release peg 3350-electrolytes 236 240 ml PO Q10M colonoscopy #4,000 11/26/22 gram-22.74 gram-6.74 gram-5.86 mL gram solution (Dariel) Allergies Allergy/AdvReac Type Severity Reaction Status Date / Time No Known Allergies Allergy Verified 11/26/22 11:15 Review of Systems Review of Systems: Yes all other systems are reviewed and are negative [facility] Past Medical History Medical History Abnormal laboratory test Asthma COVID-19 Early stage of Hiatal hernia Missed menses Myofascial pain syndrome Numbness in both hands Obesity, morbid, BMI 40.0-49.9 Polyarthritis Pulmonary nodules Rheumatoid arthritis Surgical History H/O breast biopsy H/O shoulder surgery Hx of section Hx of cholecystectomy Family History Family History Maternal Grandmother Diabetes Father HTN (hypertension) Mother HTN (hypertension) Maternal Aunt Colon cancer Social History Social History Alcohol intake: never Patient Tobacco Use Status: Former Tobacco user Tobacco use type: Cigarette Advance Directives: No Advance Directives Information Provided: Yes Gender identity: Female Physical Exam Vital Signs: Vital Signs: Last Vital Signs Temp 97.8 F 12/20/22 08:18 Pulse 81 12/20/22 08:18 Resp 16 12/20/22 08:18 BP 127/83 12/20/22 08:18 Pulse Ox 96 12/20/22 08:18 O2 Del Method Room Air 12/20/22 08:18 BMI result Body Mass Index 41.6 Appearance: Alert. Oriented X3. No acute distress. Head: normocephalic, atraumatic. Eyes: Pupils equal, round and reactive to light. ENT: Pharynx normal. No tonsillar swelling or exudate. mild posterior pharyngeal erythema, generalized. Uvula midline. Handling secretions normally. Neck: Normal inspection. Neck supple. No lymphadenopathy CVS: Normal heart rate and rhythm. Pulses normal. Respiratory: No respiratory distress. Breath sounds normal. Abdomen: Soft and nontender. +BS x4 Skin: Skin warm and dry. Normal skin color. Normal skin turgor. No rashes. Extremities: No lower extremity edema. No joint swelling. Neuro/psych: Oriented X 3. Grossly normal, nonfocal. CN II-XII intact. Normal speech and cognition. Medical Decision Making Medical Decision Making [facility] Narrative: 27-year-old female with history of RA, GI bleed, hiatal hernia, asthma who presents to the ER for evaluation of sore throat body aches since yesterday. Her vital signs are stable on arrival to the ER under physical exam is unremarkable. No evidence of acute joint swelling at this time. She tested negative for strep throat as well as COVID-19. Her symptoms seem viral in nature. sample paster was used to discuss likely viral etiology along with symptomatic care. She is stable for discharge home with supportive care and outpatient follow-up as needed. Patient agrees with plan. All questions were answered. Differential Diagnosis Differential Diagnoses: The differential diagnosis associated with the presentation includes strep, covid, flu, rsv, other viral syndrome, bronchitis, pneumonia, no evidence of peritonsillar abcsess or retropharyngeal abscess Lab Data [facility] Lab Attestation statement: I reviewed the patient's lab results. Labs: Lab Results 12/20/22 Range/Units 08:21 COVID-19 (KAYLA) Negative (Negative) COVID-19 Clin Com See Note S. pyogenes GrpA VASILE Negative (Negative) External Record Review External record reviewed: Office record and Prior outpatient labs Prescription Management I considered prescription management with: Pain Medication and Antibiotic Chronic Conditions Patient?s care impacted by: Other (RA) Critical Care Time Critical Care Time Critical Care Time: No Discharge Plan Discharge Clinical Impression: Acute viral syndrome Patient Disposition: Home, Self-Care Instructions: Viral Syndrome (ED) Additional Instructions: You tested negative for strep throat and COVID-19. Your symptoms most likely due to a virus. Treatment is rest of supportive care. Make sure you are drinking plenty of fluids. Take Motrin and Tylenol as needed for body aches and sore throat. Recommend [id number] Chloraseptic spray or Cepacol lozenges as needed for sore throat. Follow-up with your doctor If you develop new or worsening symptoms call 911 or come back to the ER for further evaluation. Pérez negativo en la prueba de faringitis estreptoc?cica y COVID-19. Lo m?s probable es que hiram s?ntomas se deban a un virus. El tratamiento es el amy de la atenci?n de apoyo. Aseg?rese de beber muchos l?quidos. [place] Motrin y Tylenol seg?n sea necesario para los charly corporales y de garganta. Recomiende el aerosol cloras?ptico o las pastillas Cepacol de venta fercho, seg?n sea necesario para el dolor de garganta. Seguimiento con russo m?dico Si desarrolla s?ntomas nuevos o que empeoran, llame al 911 o regrese a la sonia de emergencias para jeanette evaluaci?n adicional. Prescriptions: No Action cholecalciferol (vitamin D3) 125 mcg (5,000 unit) capsule 125 mcg PO DAILY 90 Days Qty: 90 1RF cyanocobalamin (vitamin B-12) 500 mcg tablet 500 mcg PO DAILY 90 Days Qty: 90 0RF vitamin A palmitate 3,000 mcg (10,000 unit) capsule 3,000 mcg PO DAILY 90 Days Qty: 90 0RF omeprazole 40 mg capsule,delayed release(DR/EC) 40 mg PO DAILY 30 Days Qty: 30 6RF metronidazole 0.75 % gel topical DAILY multivitamin Tablet 1 tab PO QAM medroxyprogesterone 150 mg/mL suspension IM peg 3350-electrolytes [Golytely] 236-22.74-6.74 -5.86 gram recon soln 240 ml PO Q10M Qty: 4000 0RF Rx Instructions: as per split prep instructions, until fecal effluent is clear Referrals: Marzena Strong MD [Primary Care Provider] - Stand Alone Forms: Work/School Release
== END 2022-12-20 10:15 | disposition home or self-care (01) ==
PROVIDERS: Emergency Provider Emergency Medicine; PCP Internal Medicine
DX: B34.9 Viral infection, unspecified (principal); J02.9 Acute pharyngitis, unspecified; Z20.822 Contact with and (suspected) exposure to COVID-19; J45.909 Unspecified asthma, uncomplicated; Z87.891 Personal history of nicotine dependence; E66.9 Obesity, unspecified; Z68.41 Body mass index [BMI] 40.0-44.9, adult
CPT/HCPCS: 87635; 87651; 99282; 99283

== ENCOUNTER 2022-12-23 12:38 | Outpatient (AMB) | payer MEDICAID, SELFPAY ==
--- NOTE | 2022-12-23 12:51 | MHC.OFFVIS ---
Intake Vital Signs 12/23/22 12:52 Height 5 ft 1 in Weight 248 lb 7.375 oz BMI 46.9 BP 140/84 H Blood Pressure Location Rt brachial Position Sitting Pulse 95 Pulse Source Pulse Oximeter Temp 97.3 F Temp Source Skin Intake Visit Reasons: RA Intake Note: New pt presents today for RA consult. C/o generalized pain Robotic Maintenance Technician Required: Yes Robotic Maintenance Technician Name: Marzena [id number] Accompanied by: Self / Same As Patient Allergies No Known Allergies Allergy (Verified 12/23/22 12:54) Medication List - Last Reconciled 12/23/22 by Mao Serrano MD acetaminophen ER 650 mg PO Q8H PRN albuterol sulfate 90 mcg/actuation (Ventolin HFA) 2 puffs inhalation Q4-6H PRN cetirizine mg PO cholecalciferol (vitamin D3) 125 mcg PO DAILY 90 days cyanocobalamin (vitamin B-12) 500 mcg PO DAILY 90 days hydroxychloroquine 200 mg PO DAILY medroxyprogesterone mg IM multivitamin 1 tab PO QAM naproxen 500 mg PO BID PRN omeprazole 40 mg PO DAILY 30 days peg 3350-electrolytes 236-22.74-6.74 -5.86 gram (Golytely) 240 mL PO Q10M vitamin A palmitate 3,000 mcg PO DAILY 90 days HPI HPI Comments History of Present Illness Details This is a 27-year-old female with seropositive RA who returns for follow-up. She was last evaluated by Dr. House 2 years ago. Patient was started on Cimzia, she mentions that she had a skin rash after the 1st injection and she stopped it. She states that she was then prescribed some medications for rheumatoid arthritis, she does not recall their name. She has not been evaluated by satellite communications engineer in 2 years. Patient is complaining of diffuse pain everywhere. In her neck, shoulders, wrists, hands, lower back. She has morning stiffness of her hands lasting 5 minutes. Stated that she no longer wears her ring due to finger swelling. [facility] Medical History (Updated 12/23/22 @ 13:36 by Mao Serrano MD) Hiatal hernia Pulmonary nodules Early stage of Obesity, morbid, BMI 40.0-49.9 Missed menses COVID-19 Asthma Rheumatoid arthritis Abnormal laboratory test Numbness in both hands Polyarthritis Myofascial pain syndrome Surgical History Hx of cholecystectomy H/O breast biopsy Hx of section H/O shoulder surgery Family History Maternal Grandmother Diabetes Father HTN (hypertension) Mother HTN (hypertension) Maternal Aunt Colon cancer Social History Alcohol intake: never Patient Tobacco Use Status: Former Tobacco user Tobacco use type: Cigarette Gender identity: Female Female Reproductive History Menstrual Total pregnancies: 6 Number of Living Children: 3 Ab spontaneous: 3 Review of Systems Const Reports fatigue, Reports headache(s), Reports snoring and Reports weakness Eyes Reports itchy eyes and Reports eye pain ENT Reports dizziness, Reports headache(s) and Reports neck pain Card Reports chest pain Resp Reports cough and Reports snoring GI Reports heartburn, Reports diarrhea and Reports nausea Musc Reports back pain, Reports arthralgias, Reports joint swelling, Reports neck pain and Reports stiffness Neuro Reports dizziness, Reports headache(s) and Reports weakness Psych Reports anxiety Endo Reports fatigue Aller/Immun Reports itchy eyes Physical Exam Vital Signs: Last Vital Signs Temp 97.3 F 12/23/22 12:52 Pulse 95 12/23/22 12:52 BP 140/84 H 12/23/22 12:52 BMI result Body Mass Index 46.9 Const General: cooperative, healthy appearing and comfortable Nutritional Appearance: obese morbidly obese Orientation/consciousness: patient oriented x3 Limitations: no limitations HEENT Head: Yes normocephalic and Yes atraumatic Mouth: moist mucous membranes Resp Effort & Inspection: normal respiratory effort and able to speak in complete sentences Auscultation: clear to auscultation bilaterally Cardio Rate: regular rate Rhythm: regular rhythm Neuro General: patient oriented x3 Extrem Other: Bilateral wrist tenderness and pain with full flexion and extension Left 2nd and 3rd MCP tenderness, positive MCP squeeze test Left 4th and 5th PIP tenderness and diffuse DIP tenderness Right 2nd and 3rd PIP tenderness and diffuse the IP tenderness Bilateral elbow pain with full flexion and extension Bilateral knee pain with full flexion and extension Bilateral ankle tenderness No MTP tenderness, negative MTP squeeze test bilaterally Assessment & Plan Assessment & Plan (1) Seropositive rheumatoid arthritis: Comment: +RF +++CCP dx 05/2020 Cimzia 06/2020 DC due to skin rash Code(s): M05.9 - Rheumatoid arthritis with rheumatoid factor, unspecified Plan: This is a 27-year-old female with seropositive RA who presents for follow-up. She was last evaluated by satellite communications engineer more than 2 years ago. Patient has multiple tender joints on exam. Will need to start DMARDs. Patient had a skin rash after the 1st Cimzia dose. CsDMARDs are contraindicated due to history of transaminitis. Discussed risks and benefits of Enbrel. Patient agreed to proceed. Will start prior authorization for Enbrel. Patient had 6 pregnancies, 3 children and 3 miscarriages. She is currently using the Depo shot for contraception. Does not want to get again. Advised patient that would not be preferred on TNF inhibitors and to let me know if she becomes as Enbrel might have to be stopped. Will check labs today and x-rays of involved joints (2) High risk medication use: Code(s): Z79.899 - Other senior living (current) drug therapy Plan: Side effects of Enbrel were discussed with the patient in detail including increased risk of infection, demyelinating disease, reactivation of latent TB, possible increased risk of solid and skin tumors. Patient fully aware. Advised patient to seek medical care [facility] if patient has an infection and advised patient to stop the medication until the infection is resolved. (3) Fibromyalgia, primary: Code(s): M79.7 - Fibromyalgia Plan: This is likely contributing to her symptoms. Advised patient to try to reduce stress, sleep well as much as possible and incorporate light exercises. Plan I spent 46 minutes reviewing patient's chart, evaluating patient, ordering diagnostic workup, counseling patient and documenting in the chart Orders: Orders XR hand wrist LT Today M05.9 - Rheumatoid arthritis with rheumatoid factor, unspecified XR hand wrist RT Today M05.9 - Rheumatoid arthritis with rheumatoid factor, unspecified XR ankle LT min 3V Today M05.9 - Rheumatoid arthritis with rheumatoid factor, unspecified XR foot RT min 3V Today M05.9 - Rheumatoid arthritis with rheumatoid factor, unspecified Complete Blood Count Auto Diff Today M05.9 - Rheumatoid arthritis with rheumatoid factor, unspecified Comprehensive Met. Panel Today M05.9 - Rheumatoid arthritis with rheumatoid factor, unspecified C Reactive Protein Today M05.9 - Rheumatoid arthritis with rheumatoid factor, unspecified Erythrocyte Sedimentation Rate Today M05.9 - Rheumatoid arthritis with rheumatoid factor, unspecified Immunofixation Pnl, Serum Today M05.9 - Rheumatoid arthritis with rheumatoid factor, unspecified Protein Electrophoresis, Serum Today M05.9 - Rheumatoid arthritis with rheumatoid factor, unspecified Hepatitis A,B,C Profile Today Z11.59 - Encounter for screening for other viral diseases T Spot TB Today Z11.7 - Encounter for testing for latent tuberculosis infection XR ankle RT min 3V Today M05.9 - Rheumatoid arthritis with rheumatoid factor, unspecified XR foot LT min 3V Today M05.9 - Rheumatoid arthritis with rheumatoid factor, unspecified Coding Level of Care Code Est Pt Level 5 (03561) Diagnoses Seropositive rheumatoid arthritis M05.9 High risk medication use Z79.899 Fibromyalgia, primary M79.7
[2022-12-23 12:52] VITALS: BP 140/84; PULSE 95; TEMP 36.3; BMI 46.9
== END 2022-12-23 13:25 | disposition home or self-care (01) ==
PROVIDERS: PCP Internal Medicine; Referring Provider Internal Medicine; Visit Provider Student in an Organized Health Care Education/Training Program
DX: M05.89 Other rheumatoid arthritis with rheumatoid factor of multiple sites (principal); Z79.899 Other long term (current) drug therapy; M79.7 Fibromyalgia
CPT/HCPCS: 99215

== ENCOUNTER 2022-12-23 12:38 | Outpatient (REF) | payer MEDICAID, SELFPAY ==
--- NOTE | ~2022-12-23 | XR_ITS ---
EXAMINATION: X-ray bilateral hand CLINICAL INFORMATION: Rheumatoid arthritis COMPARISON: X-ray 08/31/2020 TECHNIQUE: Bilateral hands each 4 views. FINDINGS: Right hand: Bone alignment is anatomic. No fracture or dislocation. No significant joint space narrowing or marginal osteophytes. No osseous erosion. No abnormal soft tissue calcification. Left hand: Bone alignment is anatomic No fracture or dislocation. No significant joint space narrowing or marginal osteophytes. No osseous erosion. No abnormal soft tissue calcification. XR/XR hand wrist LT IMPRESSION: No radiographic evidence of significant arthropathy.
--- NOTE | ~2022-12-23 | XR_ITS ---
EXAMINATION: X-ray bilateral ankle X-ray bilateral feet CLINICAL INFORMATION: Rheumatoid arthritis with rheumatoid factor COMPARISON: None TECHNIQUE: Bilateral ankles each 3 views. Bilateral foot each 3 views. FINDINGS: Left ankle: No fracture or dislocation. No significant joint space narrowing or marginal osteophytes. No osseous erosion. No abnormal soft tissue calcification. Mild ankle soft tissue swelling. Moderate posterior calcaneal insertional spurring. Left foot: No fracture or dislocation. No significant joint space narrowing or marginal osteophytes. Alignment is anatomic. No osseous erosion. No abnormal soft tissue calcification. Posterior calcaneal spur. Small dorsal navicular spurring. Right ankle: Mild ankle soft tissue swelling. No fracture or dislocation. No significant joint space narrowing or marginal osteophytes. No osseous erosion. No abnormal soft tissue calcification. Small posterior calcaneal spur. Right foot: The No fracture or dislocation. No significant joint space narrowing or marginal osteophytes. Anatomic alignment. No osseous erosion. No abnormal soft tissue calcification. XR/XR foot LT min 3V IMPRESSION: No radiographic evidence of significant arthropathy. Bilateral posterior calcaneal spurring.
--- NOTE | ~2022-12-23 | XR_ITS ---
EXAMINATION: X-ray bilateral ankle X-ray bilateral feet CLINICAL INFORMATION: Rheumatoid arthritis with rheumatoid factor COMPARISON: None TECHNIQUE: Bilateral ankles each 3 views. Bilateral foot each 3 views. FINDINGS: Left ankle: No fracture or dislocation. No significant joint space narrowing or marginal osteophytes. No osseous erosion. No abnormal soft tissue calcification. Mild ankle soft tissue swelling. Moderate posterior calcaneal insertional spurring. Left foot: No fracture or dislocation. No significant joint space narrowing or marginal osteophytes. Alignment is anatomic. No osseous erosion. No abnormal soft tissue calcification. Posterior calcaneal spur. Small dorsal navicular spurring. Right ankle: Mild ankle soft tissue swelling. No fracture or dislocation. No significant joint space narrowing or marginal osteophytes. No osseous erosion. No abnormal soft tissue calcification. Small posterior calcaneal spur. Right foot: The No fracture or dislocation. No significant joint space narrowing or marginal osteophytes. Anatomic alignment. No osseous erosion. No abnormal soft tissue calcification. XR/XR ankle LT min 3V IMPRESSION: No radiographic evidence of significant arthropathy. Bilateral posterior calcaneal spurring.
--- NOTE | ~2022-12-23 | XR_ITS ---
EXAMINATION: X-ray bilateral ankle X-ray bilateral feet CLINICAL INFORMATION: Rheumatoid arthritis with rheumatoid factor COMPARISON: None TECHNIQUE: Bilateral ankles each 3 views. Bilateral foot each 3 views. FINDINGS: Left ankle: No fracture or dislocation. No significant joint space narrowing or marginal osteophytes. No osseous erosion. No abnormal soft tissue calcification. Mild ankle soft tissue swelling. Moderate posterior calcaneal insertional spurring. Left foot: No fracture or dislocation. No significant joint space narrowing or marginal osteophytes. Alignment is anatomic. No osseous erosion. No abnormal soft tissue calcification. Posterior calcaneal spur. Small dorsal navicular spurring. Right ankle: Mild ankle soft tissue swelling. No fracture or dislocation. No significant joint space narrowing or marginal osteophytes. No osseous erosion. No abnormal soft tissue calcification. Small posterior calcaneal spur. Right foot: The No fracture or dislocation. No significant joint space narrowing or marginal osteophytes. Anatomic alignment. No osseous erosion. No abnormal soft tissue calcification. XR/XR foot RT min 3V IMPRESSION: No radiographic evidence of significant arthropathy. Bilateral posterior calcaneal spurring.
--- NOTE | ~2022-12-23 | XR_ITS ---
EXAMINATION: X-ray bilateral ankle X-ray bilateral feet CLINICAL INFORMATION: Rheumatoid arthritis with rheumatoid factor COMPARISON: None TECHNIQUE: Bilateral ankles each 3 views. Bilateral foot each 3 views. FINDINGS: Left ankle: No fracture or dislocation. No significant joint space narrowing or marginal osteophytes. No osseous erosion. No abnormal soft tissue calcification. Mild ankle soft tissue swelling. Moderate posterior calcaneal insertional spurring. Left foot: No fracture or dislocation. No significant joint space narrowing or marginal osteophytes. Alignment is anatomic. No osseous erosion. No abnormal soft tissue calcification. Posterior calcaneal spur. Small dorsal navicular spurring. Right ankle: Mild ankle soft tissue swelling. No fracture or dislocation. No significant joint space narrowing or marginal osteophytes. No osseous erosion. No abnormal soft tissue calcification. Small posterior calcaneal spur. Right foot: The No fracture or dislocation. No significant joint space narrowing or marginal osteophytes. Anatomic alignment. No osseous erosion. No abnormal soft tissue calcification. XR/XR ankle RT min 3V IMPRESSION: No radiographic evidence of significant arthropathy. Bilateral posterior calcaneal spurring.
--- NOTE | ~2022-12-23 | XR_ITS ---
EXAMINATION: X-ray bilateral hand CLINICAL INFORMATION: Rheumatoid arthritis COMPARISON: X-ray 08/31/2020 TECHNIQUE: Bilateral hands each 4 views. FINDINGS: Right hand: Bone alignment is anatomic. No fracture or dislocation. No significant joint space narrowing or marginal osteophytes. No osseous erosion. No abnormal soft tissue calcification. Left hand: Bone alignment is anatomic No fracture or dislocation. No significant joint space narrowing or marginal osteophytes. No osseous erosion. No abnormal soft tissue calcification. XR/XR hand wrist RT IMPRESSION: No radiographic evidence of significant arthropathy.
[2022-12-23 14:00] LABS: MANUAL DIFF FLAG NO
[2022-12-23 14:35] LABS: Basophils Absolute Auto 0.1 X10*3/uL (0.0-0.2); Basophils Percent Auto 0.6 % (0-2); Eosinophils Absolute Auto 0.2 X10*3/uL (0.0-0.4); Eosinophils Percent Auto 2.3 % (0-4); Hematocrit 37.6 % (37.0-47.0); Hemoglobin 12.2 g/dl (12.0-16.0); Imm Gran Abs Auto 0.03 X10*3/uL (0.00-0.03); Imm Gran Pct Auto 0.4 % (0.0-0.4); Lymphocytes Absolute Auto 2.7 X10*3/uL (1.2-4.9); Lymphocytes Percent Auto 33.8 % (20-40); Mean Corpuscular HGB Conc 32.4 g/dl (31.0-35.0); Mean Corpuscular Hemoglobin 27.3 pg (27.0-33.0); Mean Corpuscular Volume 84.1 fL (80.0-98.0); Mean Platelet Volume 10.6 fL (9.4-12.3); Monocytes Absolute Auto 0.6 X10*3/uL (0.1-1.2); Monocytes Percent Auto 7.6 % (2-11); Neutrophils Absolute Auto 4.4 x10*3/uL (2.0-8.3); Neutrophils Percent Auto 55.3 % (45-73); Platelet Count 317 X10*3/uL (160-400); Red Blood Count 4.47 X10*6/uL (4.20-5.50); White Blood Count 7.9 X10*3/uL (4.8-10.8)
[2022-12-23 15:24] LABS: Alanine Aminotransferase 17 U/L (0-31); Albumin Level 4.3 g/dL (3.5-5.0); Alkaline Phosphatase 82 U/L (39-117); Anion Gap 11 (12-20); Aspartate Amino Transferase 15 U/L (5-31); Bilirubin Total 1.2 mg/dL (0.0-1.0); Blood Urea Nitrogen 8 mg/dL (9-16); Calcium 9.8 mg/dL (8.4-10.2); Carbon Dioxide 23 mmol/L (22-29); Chloride 112 mmol/L (96-108); Estimated Glomerular Filt Rate > 60; Glucose Random 89 mg/dL (60-115); Potassium 3.8 mmol/L (3.3-5.1); Sodium 142 mmol/L (135-145); Total Protein 7.3 g/dL (6.5-8.0)
[2022-12-23 15:25] LABS: Erythrocyte Sedimentation Rate 23 MM/HR (0-20)
[2022-12-24 04:26] LABS: HBS Num1 1.09 mIU/mL (0-7.99); HBc Num1 0.36 S/CO (0.00-0.79); HBsAGNum1 0.36 S/CO (0.00-0.99); Hepatitis A Antibody IgM 0.65 Index (0-0.79); Hepatitis B Core Antibody Nonreactive (Nonreactive); Hepatitis B Surface Antigen Negative (Negative); ~HepC Num1 0.33 S/CO (0.00-0.79); ~Hepatitis A Antibody IgM Nonreactive (Nonreactive); ~Hepatitis B Surface Antibody NONREACTIVE (Nonreactive); ~Hepatitis C Antibody Nonreactive (Nonreactive)
[2022-12-25 11:53] LABS: Prot Elec - Albumin 4.1 g/dL (3.8-4.8); Prot Elec - Alpha1 0.3 g/dL (0.2-0.3); Prot Elec - Alpha2 0.8 g/dL (0.5-0.9); Prot Elec - Beta 1 0.5 g/dL (0.4-0.6); Prot Elec - Beta 2 0.5 g/dL (0.2-0.5); Prot Elec - Gamma 0.8 g/dL (0.8-1.7)
[2022-12-25 21:49] LABS: TS Negative Control Passed; TS Panel A 2; TS Panel B 0; TS Positive Control Passed; TSpotTB Negative (Negative)
[2022-12-27 09:38] LABS: IgA 218 mg/dL (47-310); IgG 1009 mg/dL (600-1640); IgM 116 mg/dL (50-300)
== END 2022-12-23 12:39 | disposition home or self-care (01) ==
LOC: HO.LAB 12:38
PROVIDERS: PCP Internal Medicine; Referring Provider Internal Medicine; Visit Provider Student in an Organized Health Care Education/Training Program
DX: M05.9 Rheumatoid arthritis with rheumatoid factor, unspecified (principal); M79.7 Fibromyalgia; Z11.7 Encounter for testing for latent tuberculosis infection; Z11.59 Encounter for screening for other viral diseases; Z79.899 Other long term (current) drug therapy
CPT/HCPCS: 36415; 73110; 73130; 73610; 73630; 80053; 82784; 84165; 85025; 85652; 86140; 86334; 86481; 86704; 86706; 86709; 86803; 87340; 99212

== ENCOUNTER 2023-01-06 18:28 | Outpatient (REF) | payer MEDICAID, SELFPAY ==
[2023-01-06 19:35] LABS: Influenza A PCR NEGATIVE (Negative); Influenza B PCR NEGATIVE (Negative); Resp Syncy Virus RNA Qual PCR NEGATIVE (Negative); SARS COV2 PCR INHOUSE NEGATIVE (Negative)
== END 2023-01-06 18:29 | disposition home or self-care (01) ==
LOC: HO.HHCLNP 18:28
PROVIDERS: Visit Provider Internal Medicine
DX: Z20.822 Contact with and (suspected) exposure to COVID-19 (principal); H92.09 Otalgia, unspecified ear
CPT/HCPCS: 0241U

== ENCOUNTER 2023-01-10 10:03 | Outpatient (AMB) | payer MEDICAID, SELFPAY ==
[2023-01-10 10:10] VITALS: PULSE 70; O2SAT 99; BMI 46.9
--- NOTE | 2023-01-10 10:10 | MHC.OFFVIS ---
Intake Vital Signs 01/10/23 10:10 Height 5 ft 1 in Weight 248 lb 7.375 oz BMI 46.9 Pulse 70 Pulse Source Pulse Oximeter Pulse Oximetry (%) 99 Oxygen Delivery Method Room Air Intake Visit Reasons: Abnormal CT scan Communications Systems Engineer Required: No Allergies No Known Allergies Allergy (Verified 01/10/23 10:11) HPI HPI Comments History of Present Illness Details The patient is a27 y/o woman with a history of rheumatoid arthritis. Patient states that she has had episodes of pleuritic chest pain. Typically on the right side. She has been evaluated in the past for this. More recently she started developing discomfort again. She was evaluated initially at [facility] because she was also having abdominal discomfort. at [facility] initially beginning of October she did undergo CT scan of the abdomen which described to ground-glass nodular densities in the right lower lobe area. No other abnormalities noted. She was then discharged and the patient followed up in the ER at [facility]. She was having some issues with GI bleed at that point. She was having bright red blood per rectum. There was a suspicion of hemorrhoids. The patient also at that point had a positive D-dimer so therefore she ended up getting a CTA which without central pulmonary embolisms. However she also had a V/Q scan because it was a suboptimal study. The patient again had the nodular densities noted. There appear to be hazy. Not quite the appearance of a rheumatoid nodule but that is in the differential. The patient is still having some pleuritic discomfort. The nodules are close to the periphery so therefore may have a component of pleuritis. Will go ahead and treated with anti-inflammatory medications. She does have a rheumatology appointment coming up in the next few weeks which is reassuring. In the meantime will going to request blood work. The patient can start Plaquenil to see if she has any improvement. And she can also follow-up with GI. Based on those findings will have to consider repeating the imaging studies. We did talk about potential biopsies if the densities do not improve or worsen. 01/10/2023 the patient is here for a pulmonary follow-up visit. Overall the patient has been feeling better. The chest pain has improved. She did undergo a CT scan back in October 2022 demonstrating pulmonary nodules although not documented in the report. Based on my review the images. The patient also was having daytime drowsiness. Therefore she did undergo sleep study demonstrated minimal episodes of apnea consistent with a normal study. Although she did better when she laid on her side. I did recommend positional therapy so she does not lay on her back where she has some degree of apneic episodes. If she continues to be symptomatic she can always consider an in-lab study. For now she will try positional therapy. She also underwent pulmonary function studies which were very reassuring, with normal lung capacity. No further testing at this time. She does have a rescue inhaler she has not required at this time. Since the patient is doing well will go ahead and follow-up after her CT scan that is scheduled to have in October 2023. if the patient has any issues prior to this she is to call for an appointment. COUNT INCLUDES THE [facility] Medical History (Updated 01/12/23 @ 22:17 by Fracisco Osullivan MD) Hiatal hernia Pulmonary nodules Early stage of Obesity, morbid, BMI 40.0-49.9 Missed menses COVID-19 Asthma Rheumatoid arthritis Abnormal laboratory test Numbness in both hands Polyarthritis Myofascial pain syndrome Surgical History Hx of cholecystectomy H/O breast biopsy Hx of section H/O shoulder surgery Family History Maternal Grandmother Diabetes Father HTN (hypertension) Mother HTN (hypertension) Maternal Aunt Colon cancer Social History Alcohol intake: never Patient Tobacco Use Status: Former Tobacco user Tobacco use type: Cigarette Gender identity: Female Review of Systems Const Reports daytime sleepiness, Denies fever(s) and Reports snoring Eyes Denies change in vision ENT Reports nasal congestion Card Denies chest pain and Reports dyspnea on exertion Resp Reports cough, Denies pain on inspiration, Denies pain with cough, Reports dyspnea on exertion, Reports snoring and Denies wheezing GI Denies hematochezia Musc Reports myalgias Skin/Breast Denies rash Sam/Lymph Denies easy bruising and Denies lymphadenopathy Aller/Immun Denies wheezing Physical Exam Vital Signs: Last Vital Signs Pulse 70 01/10/23 10:10 Pulse Ox 99 01/10/23 10:10 Oxygen Delivery Method Room Air 01/10/23 10:10 BMI result Body Mass Index 46.9 Const General: comfortable HEENT Head: Yes atraumatic Neck Neck: Yes supple Chest Chest palpation & inspection: normal inspection of the chest Resp Effort & Inspection: normal respiratory effort Auscultation: clear to auscultation bilaterally Cardio Rate: regular rate Rhythm: regular rhythm Heart sounds: S1 normal heart sound present and S2 normal heart sound present GI Palpation (GI): Soft to palpation Skin General skin exam: no rashes or lesions noted Extrem General: Yes no clubbing, cyanosis or edema Assessment & Plan Assessment & Plan (1) Seropositive rheumatoid arthritis: Comment: +RF +++CCP dx 05/2020 Cimzia 06/2020 DC due to skin rash Code(s): M05.9 - Rheumatoid arthritis with rheumatoid factor, unspecified (2) Pulmonary nodules: Code(s): R91.8 - Other nonspecific abnormal finding of lung field (3) Hiatal hernia: Code(s): K44.9 - Diaphragmatic hernia without obstruction or gangrene (4) Chest pain: Comment: better Code(s): R07.9 - Chest pain, unspecified Qualifiers: Chest pain type: unspecified Qualified Code(s): R07.9 - Chest pain, unspecified Plan HUDSON as needed positional sleep therapy. Consider repeating PSG if continues to be symptomatic repeat CT chest 10/2023 F/U in October 2023 Orders: Orders CT chest wo IV con 10/21/23 R91.8 - Other nonspecific abnormal finding of lung field Coding Level of Care Code Est Pt Level 4 (97585) Diagnoses Seropositive rheumatoid arthritis M05.9 Pulmonary nodules R91.8 Hiatal hernia K44.9 Chest pain, unspecified type R07.9 Chest pain type: unspecified Time Spent (min) 17
== END 2023-01-10 10:22 | disposition home or self-care (01) ==
PROVIDERS: PCP Internal Medicine; Visit Provider Hospitalist
DX: M05.9 Rheumatoid arthritis with rheumatoid factor, unspecified (principal); R91.8 Other nonspecific abnormal finding of lung field; K44.9 Diaphragmatic hernia without obstruction or gangrene; R07.9 Chest pain, unspecified
CPT/HCPCS: 99214

== ENCOUNTER → 2023-01-10 10:03 | Outpatient (BNVA) | payer MEDICAID, SELFPAY | PROVIDERS: PCP Internal Medicine; Visit Provider Hospitalist | DX: M05.9 Rheumatoid arthritis with rheumatoid factor, unspecified (principal); R91.8 Other nonspecific abnormal finding of lung field; K92.2 Gastrointestinal hemorrhage, unspecified | CPT/HCPCS: 99212 ==

== ENCOUNTER 2023-01-17 08:02 | Emergency (ER) | payer MEDICAID, SELFPAY ==
[2023-01-17 08:04] VITALS: BP 115/77; PULSE 82; RESP 16; TEMP 36.4; O2SAT 96; BMI 41.6
--- NOTE | 2023-01-17 08:11 | ED.ABDPAIN ---
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 She has had her gallbladder removed. She has no urinary symptoms. States she has nausea and anytime she eats she has pain and n/v. This has never happened before. Denies food exposures, travel, sick contacts. MD elicited complaint: abdominal pain Pertinent past history: none Onset (ago): day(s) (2) Pain Consistency: intermittent Location: epigastric and RLQ Severity: moderate Quality: aching and dull Radiation: RLQ Migration to: RLQ Exacerbating factors: eating Relieving factors: nothing Associated symptoms: nausea and vomiting Related Data Home Medications Medication Instructions Recorded Confirmed medroxyprogesterone 150 mg/mL mg IM 11/26/22 intramuscular suspension multivitamin 1 tab PO QAM 11/26/22 acetaminophen 650 mg 650 mg PO Q8H PRN mild pain 12/23/22 tablet,extended release albuterol sulfate 90 mcg/actuation 2 puff inhalation Q4-6H PRN 12/23/22 aerosol inhaler (Ventolin HFA) cetirizine 10 mg tablet mg PO 12/23/22 hydroxychloroquine 200 mg tablet 200 mg PO DAILY 12/23/22 naproxen 500 mg tablet 500 mg PO BID PRN mild pain 12/23/22 Previous Rx's Medication Instructions Recorded cholecalciferol (vitamin D3) 125 125 mcg PO DAILY 90 days #90 caps 10/22/22 mcg (5,000 unit) capsule cyanocobalamin (vitamin B-12) 500 500 mcg PO DAILY 90 days #90 tabs 10/22/22 mcg tablet vitamin A palmitate 3,000 mcg 3,000 mcg PO DAILY 90 days #90 caps 10/28/22 (10,000 unit) capsule omeprazole 40 mg capsule,delayed 40 mg PO DAILY 30 days #30 caps 11/01/22 release peg 3350-electrolytes 236 240 ml PO Q10M colonoscopy #4,000 11/26/22 gram-22.74 gram-6.74 gram-5.86 mL gram solution (Golytely) cefuroxime axetil 500 mg tablet 500 mg PO BID 7 days #14 tabs 01/17/23 ondansetron 4 mg disintegrating 4 mg PO Q8H PRN nausea and 01/17/23 tablet vomiting #20 tabs Allergies Allergy/AdvReac Type Severity Reaction Status Date / Time No Known Allergies Allergy Verified 01/10/23 10:11 Review of Systems Review of Systems Constitutional : No Weight loss, No Fever, No Chills ENT/Mouth : No sore throat, No Rhinorrhea Eyes: No Swelling, No Redness Cardiovascular : No Chest Pain, No SOB, NoEdema Respiratory : No Cough, No Sputum, No Wheezing Gastrointestinal : Positive Nausea, Positive Vomiting, no Diarrhea, positive abdominal Pain, No Hematochezia, No Melena Genitourinary : No Dysuria, No Urinary Frequency, No Hematuria, No Urgency Musculoskeletal : No joint pain, No Myalgias, No Joint Swelling Skin : No Skin Lesions, No rash Neuro : No Weakness, No Numbness, No Dizziness, No Headache Psych : No Anxiety/Panic, No Depression All other systems reviewed and are negative. [facility] Past Medical History Attestation statement: The following information was validated with the patient. Source: old records reviewed Medical History Hiatal hernia Pulmonary nodules Early stage of Obesity, morbid, BMI 40.0-49.9 Missed menses COVID-19 Asthma Rheumatoid arthritis Abnormal laboratory test Numbness in both hands Polyarthritis Myofascial pain syndrome Surgical History Hx of cholecystectomy H/O breast biopsy Hx of section H/O shoulder surgery Family History Family History Maternal Grandmother Diabetes Father HTN (hypertension) Mother HTN (hypertension) Maternal Aunt Colon cancer Social History Social History Alcohol intake: never Patient Tobacco Use Status: Former Tobacco user Tobacco use type: Cigarette Advance Directives: No Advance Directives Information Provided: Yes Gender identity: Female Physical Exam ED Vital Signs: Vital Signs - 24 hr 01/17/23 08:04 01/17/23 11:18 Temperature 97.5 F 97.8 F Pulse Rate 82 74 Respiratory Rate 16 16 Blood Pressure 115/77 110/73 Pulse Oximetry 96 99 Oxygen Delivery Method Room Air Room Air BMI result Body Mass Index 41.6 Appearance: Alert. Oriented X3. No acute distress. Eyes: Pupils equal, round and reactive to light. ENT: Pharynx normal. Neck: Normal inspection. Neck supple. CVS: Normal heart rate and rhythm. Pulses normal. Respiratory: No respiratory distress. Breath sounds normal. Abdomen: Soft and obese with ttp in umbilical and RLQ area no rebound. Skin: Skin warm and dry. Normal skin color. Normal skin turgor. Extremities: No lower extremity edema. No calf ttp Neuro: Oriented X 3. No motor deficit. No sensory deficit. Course Course Course Narrative: clinically no cough no URI symptoms does not make sense for pneumonia - but has opacity on chest xray will start on abx and DC home not toxic VS stable Medical Decision Making Medical Decision Making [facility] Narrative: 18 yo female with hx o asthma, rectal bleeding, hiatal hernia, RA on hydroxychloroquine here with c/o periumbilical pain and RLQ pain at this time will need basic labs, UA, IV morphine for pain, CT Scan for RLQ pain possible appendicitis/renal colic. Differential Diagnosis Differential Diagnoses: The differential diagnosis associated with the presentation includes gastritis, renal colic, appendicitis, hiatal hernia Admission/Observation Consideration of admission/observation: Escalation of care including admission/observation considered not toxic, tolerating PO feels better can be DC home pain improved with IV Morphine Lab Data [facility] Lab Attestation statement: I reviewed the patient's lab results. 01/17/23 08:34 01/17/23 08:34 Labs: Lab Results 01/17/23 01/17/23 01/17/23 Range/Units 08:34 10:49 11:20 WBC 6.3 (4.8-10.8) X10*3/uL RBC 4.37 (4.20-5.50) X10*6/uL Hgb 11.8 L (12.0-16.0) g/dl Hct 37.0 (37.0-47.0) % MCV 84.7 (80.0-98.0) fL MCH 27.0 (27.0-33.0) pg MCHC 31.9 (31.0-35.0) g/dl RDW 13.5 (11.0-16.0) % Plt Count 273 (160-400) X10*3/uL MPV 10.2 (9.4-12.3) fL Immature Gran % (Auto) 0.2 (0.0-0.4) % Neut % (Auto) 59.0 (45-73) % Lymph % (Auto) 33.6 (20-40) % [place] % (Auto) 4.5 (2-11) % Eos % (Auto) 2.1 (0-4) % Baso % (Auto) 0.6 (0-2) % Lymph # (Auto) 2.1 (1.2-4.9) X10*3/uL [place] # (Auto) 0.3 (0.1-1.2) X10*3/uL Eos # (Auto) 0.1 (0.0-0.4) X10*3/uL Baso # (Auto) 0.0 (0.0-0.2) X10*3/uL Abs Immat Gran (auto) 0.01 (0.00-0.03) X10*3/uL Absolute Neuts (auto) 3.7 (2.0-8.3) x10*3/uL Absolute Nucleated RBC 0.000 (0.0-0.012) X10*3/uL Nucleated RBC % (auto) 0.0 (0.0-0.2) /100WBC Sodium 140 (135-145) mmol/L Potassium 4.1 (3.3-5.1) mmol/L Chloride 109 H (96-108) mmol/L Carbon Dioxide 20 L (22-29) mmol/L Anion Gap 15 (12-20) BUN 11 (9-16) mg/dL Creatinine 0.78 (0.5-1.4) mg/dL Estim Creat Clear Calc 115.2 Estimated GFR > 60 Random Glucose 163 H (60-115) mg/dL Calcium 9.2 D (8.4-10.2) mg/dL Magnesium 2.0 (1.6-2.6) mg/dL Total Bilirubin 1.4 H (0.0-1.0) mg/dL Direct Bilirubin 0.3 (0.0-0.5) mg/dL AST 20 (5-31) U/L ALT 19 (0-31) U/L Alkaline Phosphatase 71 (39-117) U/L Total Protein 7.2 (6.5-8.0) g/dL Albumin 4.0 (3.5-5.0) g/dL Lipase 18 (8-78) U/L Beta HCG, Quant < 2 mIU/mL Urine Color Yellow Urine Appearance Clear Urine pH 6.0 (5.0-9.0) Ur Specific [place] >= 1.030 H (1.005-1.025) Urine Protein Negative (Neg-Trace) mg/dL Urine Glucose (UA) Negative (Negative) mg/dL Urine Ketones Negative (Negative) mg/dL Urine Blood Negative (Negative) Urine Nitrite Negative (Negative) Ur Leukocyte Esterase Negative (Negative) COVID-19 (KAYLA) Negative (Negative) COVID-19 Clin Com See Note Independent Interpretation I performed an independent interpretation of an: Plain X-Ray (RLL opacified) and CT Scan (no cause for pain found) Radiology Impression Discussion of test interpretation with radiology: I have reviewed the radiologist's reading. External Record Review External record reviewed: Office record Prescription Management I considered prescription management with: Antibiotic and Other Medications Administered Discontinued Medications Generic Name Dose Route Start Last Admin Trade Name Freq PRN Reason Stop Dose Admin Sodium Chloride 1,000 mls @ 999 mls/hr 01/17/23 08:30 01/17/23 11:14 Ns IVCONT 01/17/23 09:30 Infused .Q1H1M MODE Infusion Iohexol 100 ml 01/17/23 09:41 01/17/23 09:42 Iohexol 350 Mg/Ml 100 Ml Infus..Btl IV 01/17/23 09:42 100 ml ONCE ONE Administration Morphine Sulfate 4 mg 01/17/23 08:22 01/17/23 08:39 Morphine Sulfate 4 Mg/Ml Cartridge IVPUSH 01/17/23 08:23 4 mg ONCE ONE Administration Protocol Ondansetron HCl 4 mg 01/17/23 08:22 01/17/23 08:39 Ondansetron Hcl 4 Mg/2 Ml Vial IVPUSH 01/17/23 08:23 4 mg ONCE ONE Administration Critical Care Time Critical Care Time Critical Care Time: Yes Total Critical Care Time: 31 Attestation: IV morphine pain for abdominal pain, improved stable for DC I attest to this time spent taking care of the patient Discharge Plan Discharge Clinical Impression: Abdominal pain Qualifiers: Abdominal location: periumbilical Qualified Code(s): R10.33 - Periumbilical pain Pneumonia Qualifiers: Pneumonia type: due to unspecified organism Laterality: right Lung location: lower lobe of lung Qualified Code(s): J18.9 - Pneumonia, unspecified organism Patient Disposition: Home, Self-Care Instructions: Abdominal Pain (ED), Pneumonia (ED) Additional Instructions: return for worsening pain, fevers, vomiting, cough, difficulty breathing, inability to eat or drink or any other concerns, no acute findings on CT scan labs reassuring and COVID negative. xray showed right lower lobe mild pneumonia take antibiotic seek care if you have more than 6 loose stools a day, difficulty breathing or any other concerns. Regrese por empeoramiento del dolor, fiebre, v?mitos, tos, dificultad para respirar, incapacidad para comer o beber o cualquier otra inquietud, no hay hallazgos agudos en los laboratorios de tomograf?a computarizada que mathew tranquilizadores y COVID negativo. La radiograf?a mostr? neumon?a leve en el l?bulo inferior derecho, tome antibi?ticos y busque atenci?n si tiene m?s de 6 deposiciones blandas al d?a, dificultad para respirar o cualquier otro problema. Prescriptions: New ondansetron 4 mg tablet,disintegrating 4 mg PO Q8H PRN (Reason: nausea and vomiting) Qty: 20 0RF cefuroxime axetil 500 mg tablet 500 mg PO BID 7 Days Qty: 14 0RF No Action cholecalciferol (vitamin D3) 125 mcg (5,000 unit) capsule 125 mcg PO DAILY 90 Days Qty: 90 1RF cyanocobalamin (vitamin B-12) 500 mcg tablet 500 mcg PO DAILY 90 Days Qty: 90 0RF vitamin A palmitate 3,000 mcg (10,000 unit) capsule 3,000 mcg PO DAILY 90 Days Qty: 90 0RF hydroxychloroquine 200 mg tablet 200 mg PO DAILY acetaminophen 650 mg tablet extended release 650 mg PO Q8H PRN (Reason: mild pain) cetirizine 10 mg tablet PO albuterol sulfate [Ventolin HFA] 90 mcg/actuation HFA aerosol inhaler 2 puff inhalation Q4-6H PRN naproxen 500 mg tablet 500 mg PO BID PRN (Reason: mild pain) omeprazole 40 mg capsule,delayed release(DR/EC) 40 mg PO DAILY 30 Days Qty: 30 6RF multivitamin Tablet 1 tab PO QAM medroxyprogesterone 150 mg/mL suspension IM peg 3350-electrolytes [Golytely] 236-22.74-6.74 -5.86 gram recon soln 240 ml PO Q10M Qty: 4000 0RF Rx Instructions: as per split prep instructions, until fecal effluent is clear Print Language: Syriac
[2023-01-17 11:18] VITALS: BP 110/73; PULSE 74; RESP 16; TEMP 36.6; O2SAT 99
== END 2023-01-17 12:38 | disposition home or self-care (01) ==
PROVIDERS: Emergency Provider Emergency Medicine; PCP Internal Medicine
DX: R10.33 Periumbilical pain (principal); J18.9 Pneumonia, unspecified organism; Z11.52 Encounter for screening for COVID-19; Z87.891 Personal history of nicotine dependence
CPT/HCPCS: 36415; 71046; 74177; 80048; 80076; 81003; 83690; 83735; 84702; 85025; 87635; 96361; 96374; 96375; 99284; 99285; J2270; J2405; Q9967

== ENCOUNTER 2023-01-31 08:40 | Emergency (ER) | payer MEDICAID, SELFPAY ==
--- NOTE | ~2023-01-31 | XR_ITS ---
EXAMINATION: XR CHEST CLINICAL INFORMATION: Chest pain. COMPARISON: 01/17/2023 TECHNIQUE: Frontal view of the chest was obtained. FINDINGS: The lungs are moderately expanded. No focal consolidation. No pleural effusion. Cardiac silhouette is unchanged. XR/XR chest 1V IMPRESSION: No acute abnormality.
[2023-01-31 08:48] VITALS: BP 129/99; PULSE 94; RESP 20; TEMP 36.8; O2SAT 98; BMI 41.6
--- NOTE | 2023-01-31 08:54 | ECG_ITS ---
Test Reason : CHEST PAIN Blood Pressure : / mmHG Vent. Rate : 074 BPM Atrial Rate : 074 BPM P-R Int : 152 ms QRS Dur : 084 ms QT Int : 394 ms P-R-T Axes : 049 030 011 degrees QTc Int : 437 ms Normal sinus rhythm RSR' or QR pattern in V1 suggests right ventricular conduction delay Otherwise normal ECG When compared with ECG of 24-OCT-2022 10:57, No significant change was found Referred By: Gladys Lozada Electronically Signed By:DAVID RODRIGUEZ MD
--- NOTE | 2023-01-31 08:55 | ED_ITS ---
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 Woke up today with headache, joint pain and chest pains. She reports the pain in her abdomen comes and goes and is in the middle and right upper quadrant. She has been having some bilious vomitus. She reports the headache started this morning and is diffuse. She also reports diffuse body aches. No fevers but she has had chills. No known sick contacts. MD complaint: N/V, abdominal pain, chest pain, headache Onset (ago): day(s) (2) Location: head, chest and abdomen Radiation: non-radiation Severity: severe Quality: aching Pain Consistency: intermittent Relieving factors: none Exacerbating factors: none Associated symptoms: chest pain, cough, fever/chills, headaches, loss of appetite, malaise, nausea/vomiting and weakness Treatments prior to arrival: none Related Data Home Medications Medication Instructions Recorded Confirmed medroxyprogesterone 150 mg/mL mg IM 11/26/22 intramuscular suspension multivitamin 1 tab PO QAM 11/26/22 acetaminophen 650 mg 650 mg PO Q8H PRN mild pain 12/23/22 tablet,extended release albuterol sulfate 90 mcg/actuation 2 puff inhalation Q4-6H PRN 12/23/22 aerosol inhaler (Ventolin HFA) cetirizine 10 mg tablet mg PO 12/23/22 hydroxychloroquine 200 mg tablet 200 mg PO DAILY 12/23/22 naproxen 500 mg tablet 500 mg PO BID PRN mild pain 12/23/22 Previous Rx's Medication Instructions Recorded cholecalciferol (vitamin D3) 125 125 mcg PO DAILY 90 days #90 caps 10/22/22 mcg (5,000 unit) capsule cyanocobalamin (vitamin B-12) 500 500 mcg PO DAILY 90 days #90 tabs 10/22/22 mcg tablet vitamin A palmitate 3,000 mcg 3,000 mcg PO DAILY 90 days #90 caps 10/28/22 (10,000 unit) capsule omeprazole 40 mg capsule,delayed 40 mg PO DAILY 30 days #30 caps 11/01/22 release peg 3350-electrolytes 236 240 ml PO Q10M colonoscopy #4,000 11/26/22 gram-22.74 gram-6.74 gram-5.86 mL gram solution (Golytely) cefuroxime axetil 500 mg tablet 500 mg PO BID 7 days #14 tabs 01/17/23 ondansetron 4 mg disintegrating 4 mg PO Q8H PRN nausea and 01/17/23 tablet vomiting #20 tabs Allergies Allergy/AdvReac Type Severity Reaction Status Date / Time No Known Allergies Allergy Verified 01/31/23 08:54 Review of Systems 2 Review of Systems: Yes all other systems are reviewed and are negative [facility] Past Medical History Medical History Hiatal hernia Pulmonary nodules Early stage of Obesity, morbid, BMI 40.0-49.9 Missed menses COVID-19 Asthma Rheumatoid arthritis Abnormal laboratory test Numbness in both hands Polyarthritis Myofascial pain syndrome Surgical History Hx of cholecystectomy H/O breast biopsy Hx of section H/O shoulder surgery Family History Family History Maternal Grandmother Diabetes Father HTN (hypertension) Mother HTN (hypertension) Maternal Aunt Colon cancer Social History Social History Alcohol intake: never Patient Tobacco Use Status: Former Tobacco user Tobacco use type: Cigarette Smoked in Last 30 Days: No Use of substances other than those prescribed or required for medical reasons: No Any prior treatment program specific to substance use: No Advance Directives: No Advance Directives Information Provided: No Patient : No Gender identity: Female Physical Exam ED Vital Signs: Vital Signs - 24 hr 01/31/23 08:48 01/31/23 09:48 01/31/23 10:00 Temperature 98.3 F 98.1 F Pulse Rate 94 71 77 Respiratory Rate 20 17 18 Blood Pressure 129/99 H 123/73 130/83 Pulse Oximetry 98 98 99 Oxygen Delivery Method Room Air Room Air Room Air 10/20/23 15:25 Temperature Pulse Rate 89 Respiratory Rate 18 Blood Pressure 119/81 Pulse Oximetry 93 Oxygen Delivery Method Room Air BMI result Body Mass Index 41.6 Appearance: Alert. Oriented X3. No acute distress. Non-toxic appearing Head: normocephalic, atraumatic. Eyes: Pupils equal, round and reactive to light. ENT: Pharynx normal. No tonsillar swelling or exudate. Neck: Normal inspection. Neck supple. CVS: Normal heart rate and rhythm. Pulses normal. Respiratory: No respiratory distress. Breath sounds normal. Abdomen: Morbidly obese, Soft with mild tenderness to RUQ without rebound or guarding, normal active +BS x4 Skin: Skin warm and dry. Normal skin color. Normal skin turgor. No rashes. Extremities: No lower extremity edema. No joint swelling. Neuro/psych: Oriented X 3. No motor deficit. No sensory deficit. CN II-XII intact. Normal speech and cognition. Steady gait Medications Administered Discontinued Medications Generic Name Dose Route Start Last Admin Trade Name Freq PRN Reason Stop Dose Admin Sodium Chloride 1,000 mls @ 999 mls/hr 01/31/23 09:00 01/31/23 10:12 Ns IVCONT 01/31/23 10:00 Infused .Q1H1M MODE Infusion Sodium Chloride 1,000 mls @ 999 mls/hr 01/31/23 14:45 01/31/23 15:28 Ns IVCONT 01/31/23 15:45 999 mls/hr .Q1H1M MODE Administration Ketorolac Tromethamine 30 mg 01/31/23 08:54 01/31/23 09:13 Ketorolac Tromethamine 30 Mg/Ml Vial IVPUSH 01/31/23 08:55 30 mg ONCE ONE Administration Metoclopramide HCl 10 mg 01/31/23 11:15 01/31/23 11:25 Metoclopramide Hcl 10 Mg/2 Ml Vial IVPUSH 01/31/23 11:16 10 mg ONCE ONE Administration Morphine Sulfate 4 mg 01/31/23 10:08 01/31/23 11:06 Morphine Sulfate 4 Mg/Ml Cartridge IVPUSH 01/31/23 10:09 4 mg ONCE ONE Administration Protocol Ondansetron HCl 4 mg 01/31/23 08:54 01/31/23 09:13 Ondansetron Hcl 4 Mg/2 Ml Vial IVPUSH 01/31/23 08:55 4 mg ONCE ONE Administration Medical Decision Making Medical Decision Making [facility] Narrative: 26 yo Tongan speaking female with history of morbid obesity, fibromyalgia, asthma, hiatial hernia, rheumatoid arthritis, hx pulmonary nodules who presents to the ER for evaluation of nausea, vomiting and abdominal pain that started yesterday. Woke up today with headache, joint pain and chest pains. PERC negative. VSS on arrival. She was vomiting yellow fluid in triage. Mild RUQ tenderness on exam without rebound or guarding. LFTs and lipase are normal. Given her other symptoms doubt acute cholecystitis. Given antiemetics and pain control with improvement in pain. Differential Diagnosis Differential Diagnoses: The differential diagnosis associated with the presentation includes viral syndrome, COVID, flu, acute cholecystitis, doubt ACS or PE Admission/Observation Consideration of admission/observation: Escalation of care including admission/observation considered Lab Data [facility] Lab Attestation statement: I reviewed the patient's lab results. unremarkable 01/31/23 09:09 01/31/23 09:09 Labs: Lab Results 01/31/23 01/31/23 Range/Units 09:09 14:53 WBC 8.0 (4.8-10.8) X10*3/uL RBC 4.49 (4.20-5.50) X10*6/uL Hgb 12.1 (12.0-16.0) g/dl Hct 38.2 (37.0-47.0) % MCV 85.1 (80.0-98.0) fL MCH 26.9 L (27.0-33.0) pg MCHC 31.7 (31.0-35.0) g/dl RDW 13.6 (11.0-16.0) % Plt Count 334 (160-400) X10*3/uL MPV 10.2 (9.4-12.3) fL Immature Gran % (Auto) 0.3 (0.0-0.4) % Neut % (Auto) 58.6 (45-73) % Lymph % (Auto) 33.0 (20-40) % [place] % (Auto) 5.4 (2-11) % Eos % (Auto) 1.9 (0-4) % Baso % (Auto) 0.8 (0-2) % Lymph # (Auto) 2.6 (1.2-4.9) X10*3/uL [place] # (Auto) 0.4 (0.1-1.2) X10*3/uL Eos # (Auto) 0.2 (0.0-0.4) X10*3/uL Baso # (Auto) 0.1 (0.0-0.2) X10*3/uL Abs Immat Gran (auto) 0.02 (0.00-0.03) X10*3/uL Absolute Neuts (auto) 4.7 (2.0-8.3) x10*3/uL Absolute Nucleated RBC 0.000 (0.0-0.012) X10*3/uL Nucleated RBC % (auto) 0.0 (0.0-0.2) /100WBC Sodium 140 (135-145) mmol/L Potassium 3.6 (3.3-5.1) mmol/L Chloride 109 H (96-108) mmol/L Carbon Dioxide 21 L (22-29) mmol/L Anion Gap 14 (12-20) BUN 10 (9-16) mg/dL Creatinine 0.78 (0.5-1.4) mg/dL Estim Creat Clear Calc 115.2 Estimated GFR > 60 Random Glucose 117 H (60-115) mg/dL Calcium 9.7 (8.4-10.2) mg/dL Magnesium 1.9 (1.6-2.6) mg/dL Total Bilirubin 1.1 H (0.0-1.0) mg/dL Direct Bilirubin 0.4 (0.0-0.5) mg/dL AST 20 (5-31) U/L ALT 24 (0-31) U/L Alkaline Phosphatase 83 (39-117) U/L Total Protein 7.6 (6.5-8.0) g/dL Albumin 4.5 (3.5-5.0) g/dL Lipase 21 (8-78) U/L Urine Color Yellow Urine Appearance Clear Urine pH 6.0 (5.0-9.0) Ur Specific [place] >= 1.030 H (1.005-1.025) Urine Protein 30 (1+) H (Neg-Trace) mg/dL Urine Glucose (UA) Negative (Negative) mg/dL Urine Ketones Negative (Negative) mg/dL Urine Blood Negative (Negative) Urine Nitrite Negative (Negative) Ur Leukocyte Esterase Negative (Negative) Urine RBC 0-2 (0-2) /HPF Urine WBC 0-5 (0-5) /HPF Ur Squamous Epith Cells 3-5 (0-2) /HPF Urine Bacteria Trace (None Seen) Hyaline Casts 3-5 (0-2) /LPF COVID-19 (KAYLA) Negative (Negative) COVID-19 Clin Com See Note Influenza Type A (VASILE) Negative (Negative) Influenza Type B (VASILE) Negative (Negative) Influenza A & B Note See Note Independent Interpretation I performed an independent interpretation of an: EKG and Plain X-Ray Interpretation: ekg w/ normal sinus rhythm, HR 74 bpm, normal MN interval, normal QTc, t-wave inversion in leads III and V1 only, unchanged from October 2022 cxr w/ clear lungs, no PNA or PTX Radiology Impression Discussion of test interpretation with radiology: I have reviewed the radiologist's reading. Radiologist Impression: EXAMINATION: XR CHEST CLINICAL INFORMATION: Chest pain. COMPARISON: 01/17/2023 TECHNIQUE: Frontal view of the chest was obtained. FINDINGS: The lungs are moderately expanded. No focal consolidation. No pleural effusion. Cardiac silhouette is unchanged. XR/XR chest 1V IMPRESSION: No acute abnormality. External Record Review External record reviewed: Outpatient record, Prior outpatient labs and Prior outpatient radiology Prescription Management I considered prescription management with: Pain Medication and Other (antiemetic) Chronic Conditions Patient?s care impacted by: Other (asthma, fibromyalgia) Critical Care Time Critical Care Time Critical Care Time: No Discharge Plan Discharge Clinical Impression: Acute viral syndrome Patient Disposition: Home, Self-Care Instructions: Viral Syndrome (ED) Additional Instructions: Your lab workup and urine test today were unremarkable. You tested negative for COVID and Flu. Your symptoms are most likely due to another viral process. Treatment is rest and supportive care Take the prescribed medication as needed for nause and the prescribed headache medication as needed for headache Tus an?lisis de laboratorio y de orina de hoy no fueron extraordinarios. Tu prueba de COVID y gripe fue negativa. Lo m?s probable es que hiram s?ntomas se deban a otro proceso viral. El tratamiento es reposo y cuidados de apoyo. Apollo el medicamento recetado seg?n sea necesario para las n?useas y el medicamento recetado para el dolor de umu seg?n sea necesario. Prescriptions: No Action cholecalciferol (vitamin D3) 125 mcg (5,000 unit) capsule 125 mcg PO DAILY 90 Days Qty: 90 1RF cyanocobalamin (vitamin B-12) 500 mcg tablet 500 mcg PO DAILY 90 Days Qty: 90 0RF vitamin A palmitate 3,000 mcg (10,000 unit) capsule 3,000 mcg PO DAILY 90 Days Qty: 90 0RF ondansetron 4 mg tablet,disintegrating 4 mg PO Q8H PRN (Reason: nausea and vomiting) Qty: 20 0RF cefuroxime axetil 500 mg tablet 500 mg PO BID 7 Days Qty: 14 0RF hydroxychloroquine 200 mg tablet 200 mg PO DAILY acetaminophen 650 mg tablet extended release 650 mg PO Q8H PRN (Reason: mild pain) cetirizine 10 mg tablet PO albuterol sulfate [Ventolin HFA] 90 mcg/actuation HFA aerosol inhaler 2 puff inhalation Q4-6H PRN naproxen 500 mg tablet 500 mg PO BID PRN (Reason: mild pain) omeprazole 40 mg capsule,delayed release(DR/EC) 40 mg PO DAILY 30 Days Qty: 30 6RF multivitamin Tablet 1 tab PO QAM medroxyprogesterone 150 mg/mL suspension IM peg 3350-electrolytes [Golytely] 236-22.74-6.74 -5.86 gram recon soln 240 ml PO Q10M Qty: 4000 0RF Rx Instructions: as per split prep instructions, until fecal effluent is clear Referrals: Marzena Strong MD [Primary Care Provider] - Print Language: Tongan
[2023-01-31] MEDS: 0.9 % Sodium Chloride 1,000 ML 999 ML IVCONT ×2 (09:10→15:28)
[2023-01-31] MEDS: ondansetron HCL 4 MG/2 ML VIAL IVPUSH (09:13)
[2023-01-31] MEDS: Ketorolac Tromethamine 30 MG/ML VIAL IVPUSH (09:13)
--- NOTE | 2023-01-31 09:16 | PC.NURSE ---
a&ox3, vss and up to date. nsr on the cardiac monitor technician. pt comes in today d/t 10/10 abd pain, headache, nausea/vomiting and chest pain. pt verbalizes chest pain radiates to LUE at this time. pt also verbalizing blurry vision. pt has had these sx for 2 days. 20g IV placed in right AC w/o complications. labs drawn and sent to lab. medications administered per provider order. pt resting comfortably w/ the lights dimmed at this time. respirations even and unlabored. call zayas placed within reach.
[2023-01-31 09:22] LABS: MANUAL DIFF FLAG NO
[2023-01-31 09:27] LABS: Basophils Absolute Auto 0.1 X10*3/uL (0.0-0.2); Basophils Percent Auto 0.8 % (0-2); Eosinophils Absolute Auto 0.2 X10*3/uL (0.0-0.4); Eosinophils Percent Auto 1.9 % (0-4); Hematocrit 38.2 % (37.0-47.0); Hemoglobin 12.1 g/dl (12.0-16.0); Imm Gran Abs Auto 0.02 X10*3/uL (0.00-0.03); Imm Gran Pct Auto 0.3 % (0.0-0.4); Lymphocytes Absolute Auto 2.6 X10*3/uL (1.2-4.9); Mean Corpuscular HGB Conc 31.7 g/dl (31.0-35.0); Mean Corpuscular Hemoglobin 26.9 pg (27.0-33.0); Mean Corpuscular Volume 85.1 fL (80.0-98.0); Mean Platelet Volume 10.2 fL (9.4-12.3); Monocytes Absolute Auto 0.4 X10*3/uL (0.1-1.2); Monocytes Percent Auto 5.4 % (2-11); Neutrophils Absolute Auto 4.7 x10*3/uL (2.0-8.3); Neutrophils Percent Auto 58.6 % (45-73); Platelet Count 334 X10*3/uL (160-400); Red Blood Count 4.49 X10*6/uL (4.20-5.50); Red Cell Distribution Width 13.6 % (11.0-16.0)
[2023-01-31 09:42] LABS: Alanine Aminotransferase 24 U/L (0-31); Albumin Level 4.5 g/dL (3.5-5.0); Alkaline Phosphatase 83 U/L (39-117); Anion Gap 14 (12-20); Aspartate Amino Transferase 20 U/L (5-31); Bilirubin Direct 0.4 mg/dL (0.0-0.5); Bilirubin Total 1.1 mg/dL (0.0-1.0); Blood Urea Nitrogen 10 mg/dL (9-16); Calcium 9.7 mg/dL (8.4-10.2); Carbon Dioxide 21 mmol/L (22-29); Chloride 109 mmol/L (96-108); Creatinine Clr Calc Pharmacy 115.2; Estimated Glomerular Filt Rate > 60; Glucose Random 117 mg/dL (60-115); Lipase 21 U/L (8-78); Magnesium 1.9 mg/dL (1.6-2.6); Potassium 3.6 mmol/L (3.3-5.1); Sodium 140 mmol/L (135-145); Total Protein 7.6 g/dL (6.5-8.0)
[2023-01-31 09:48] VITALS: BP 123/73; PULSE 71; RESP 17; O2SAT 98
--- NOTE | 2023-01-31 09:51 | PC.NURSE ---
ekg obtained by tech.
[2023-01-31 09:58] LABS: COVID-19 Test Negative (Negative); IDNOW Serial# 08D9AD1C
[2023-01-31 10:00] VITALS: BP 130/83; PULSE 77; RESP 18; TEMP 36.7; O2SAT 99
[2023-01-31 10:00] LABS: IDNOW Serial# BCCEAD1C; Influenza A Negative (Negative); Influenza B2 Negative (Negative)
--- NOTE | 2023-01-31 10:10 | PC.NURSE ---
vss and up to date. pt states pain is still 9/10 despite medication administration. respirations even and unlabored. call zayas placed within reach.
[2023-01-31] MEDS: Morphine Sulfate 4 MG/ML CARTRIDGE IVPUSH (11:06)
--- NOTE | 2023-01-31 11:08 | PC.NURSE ---
IVF still up and running at this time. pt medicated per provider order. nsr on the traffic monitor specialist. respirations remain even and unlabored. call zayas placed within reach.
[2023-01-31] MEDS: Metoclopramide HCl 10 MG/2 ML VIAL IVPUSH (11:25)
--- NOTE | 2023-01-31 11:26 | PC.NURSE ---
pt still c/o nausea at this time. provider aware. pt medicated per provider order. will reassess shortly.
--- NOTE | 2023-01-31 13:07 | PC.NURSE ---
still awaiting urine sample at this time. pt verbalizing that she cannot urinate at this time. pt still verbalizing 8/10 abdominal pain at this time. n/v has subsided at this time. resting comfortably w/ the lights dimmed. respirations remain even and unlabored. call zayas placed within reach.
--- NOTE | 2023-01-31 14:55 | PC.NURSE ---
urine obtained and sent to lab.
[2023-01-31 15:22] LABS: Appearance Urine Clear; Color Urine Yellow; Glucose Urine UA Negative (Negative); Leukocyte Esterase Urine Negative (Negative); Nitrite Urine Negative (Negative); Specific Gravity - Urine >= 1.030 (1.005-1.025); UMIC TRIGGER UACC YES; Urine Blood Negative (Negative); Urine Ketones Negative (Negative); Urine Protein 30 (1+) mg/dL (Neg-Trace)
[2023-01-31 15:25] VITALS: BP 119/81; PULSE 89; RESP 18; O2SAT 93
[2023-01-31 15:27] LABS: Bacteria Urine Trace (None Seen); RBC Urine 0-2 /HPF (0-2); WBC Urine 0-5 /HPF (0-5)
--- NOTE | 2023-01-31 15:29 | PC.NURSE ---
fluids administered per provider order. pt still verbalizing 8/10 abdominal pain at this time. still no n/v at this time. respirations even and unlabored. call zayas paced within reach.
== END 2023-01-31 16:28 | disposition home or self-care (01) ==
PROVIDERS: Physician Assistant; Emergency Provider Emergency Medicine; PCP Internal Medicine
DX: B34.9 Viral infection, unspecified (principal); R51.9 Headache, unspecified; R07.89 Other chest pain; R05.9 Cough, unspecified; R11.2 Nausea with vomiting, unspecified; Z11.52 Encounter for screening for COVID-19; Z20.822 Contact with and (suspected) exposure to COVID-19; Z79.899 Other long term (current) drug therapy; Z87.891 Personal history of nicotine dependence
CPT/HCPCS: 71045; 80048; 80076; 81001; 83690; 83735; 85025; 87502; 87635; 93005; 96361; 96374; 96375; 99284; 99285; J1885; J2270; J2405; J2765

== ENCOUNTER 2023-02-11 13:08 | Day surgery (SDC) | payer MEDICAID, SELFPAY ==
--- NOTE | 2023-02-10 13:31 | HO.ANESPROP2 ---
Documented by User: Davina Vaz NP 02/10/23 13:33 HPI - Anesthesia Eval Consult details Narrative: 27yo F for Colonoscopy PMFSH Active Problems Active Problems: All Active Problems (Updated 02/01/23 @ 00:01 by Scout Da Silva) Fibromyalgia, primary (Acute) High risk medication use (Acute) Asthma (Acute) Hiatal hernia (Acute) Pulmonary nodules (Acute) GI bleed (Acute) Snoring (Acute) Polyarthralgia (Acute) Seropositive rheumatoid arthritis (Acute) Vitamin D deficiency (Acute) Past Medical History Medical History Hiatal hernia Pulmonary nodules Early stage of Obesity, morbid, BMI 40.0-49.9 Missed menses COVID-19 Asthma Rheumatoid arthritis Abnormal laboratory test Numbness in both hands Polyarthritis Myofascial pain syndrome Family History Family History Maternal Grandmother Diabetes Father HTN (hypertension) Mother HTN (hypertension) Maternal Aunt Colon cancer Surgical History Surgical History Hx of cholecystectomy H/O breast biopsy Hx of section H/O shoulder surgery Social History Social History Alcohol intake: never Patient Tobacco Use Status: Former Tobacco user Tobacco use type: Cigarette Are you DNR?: No Advance Directives: No Advance Directives Information Provided: Yes Recently lost weight without trying: No Eating poorly because of decreased appetite: No Nutrition Risks: No Nutritional Risk Patient : No Gender identity: Female Meds Allergies Allergy/AdvReac Type Severity Reaction Status Date / Time No Known Allergies Allergy Verified 01/31/23 08:54 Home Medications Medication Instructions Recorded Confirmed Last Taken Type medroxyprogesterone 150 mg/mL mg IM 11/26/22 Unknown History intramuscular suspension multivitamin 1 tab PO QAM 11/26/22 Unknown History acetaminophen 650 mg 650 mg PO Q8H PRN mild pain 12/23/22 Unknown History tablet,extended release albuterol sulfate 90 mcg/actuation 2 puff inhalation Q4-6H PRN 12/23/22 Unknown History aerosol inhaler (Ventolin HFA) cetirizine 10 mg tablet mg PO 12/23/22 Unknown History hydroxychloroquine 200 mg tablet 200 mg PO DAILY 12/23/22 Unknown History naproxen 500 mg tablet 500 mg PO BID PRN mild pain 12/23/22 Unknown History Exam Exam Date and Time: February 10, 2023 1331 Pertinent Lab Results Pertinent Lab Results: Laboratory Tests 01/31/23 09:09 WBC 8.0 Hgb 12.1 Hct 38.2 Plt Count 334 Sodium 140 Potassium 3.6 Chloride 109 H Carbon Dioxide 21 L BUN 10 Creatinine 0.78 Narrative Narrative: EKG 01/2023 Vent. Rate : 074 BPM Atrial Rate : 074 BPM P-R Int : 152 ms QRS Dur : 084 ms QT Int : 394 ms P-R-T Axes : 049 030 011 degrees QTc Int : 437 ms Normal sinus rhythm RSR' or QR pattern in V1 suggests right ventricular conduction delay Otherwise normal ECG When compared with ECG of 24-OCT-2022 10:57, No significant change was found Assessment and Plan Assessment Anesthesia Assessment: Chart Reviewed Documented by User: Fausto Interiano MD 02/11/23 14:15 [facility] Past Medical History Medical History Hiatal hernia Pulmonary nodules Early stage of Obesity, morbid, BMI 40.0-49.9 Missed menses COVID-19 Asthma Rheumatoid arthritis Abnormal laboratory test Numbness in both hands Polyarthritis Myofascial pain syndrome Family History Family History Maternal Grandmother Diabetes Father HTN (hypertension) Mother HTN (hypertension) Maternal Aunt Colon cancer Family history of problems with anesthesia: No Surgical History Surgical History Hx of cholecystectomy H/O breast biopsy Hx of section H/O shoulder surgery History of Problems with Anesthesia: No Social History Social History Alcohol intake: never Patient Tobacco Use Status: Former Tobacco user Tobacco use type: Cigarette Are you DNR?: No Advance Directives: No Advance Directives Information Provided: Yes Recently lost weight without trying: No Eating poorly because of decreased appetite: No Nutrition Risks: No Nutritional Risk Patient : No Gender identity: Female Meds Allergies Allergy/AdvReac Type Severity Reaction Status Date / Time No Known Allergies Allergy Verified 01/31/23 08:54 Home Medications Medication Instructions Recorded Confirmed Last Taken Type medroxyprogesterone 150 mg/mL mg IM 11/26/22 Unknown History intramuscular suspension multivitamin 1 tab PO QAM 11/26/22 Unknown History acetaminophen 650 mg 650 mg PO Q8H PRN mild pain 12/23/22 Unknown History tablet,extended release albuterol sulfate 90 mcg/actuation 2 puff inhalation Q4-6H PRN 12/23/22 Unknown History aerosol inhaler (Ventolin HFA) cetirizine 10 mg tablet mg PO 12/23/22 Unknown History hydroxychloroquine 200 mg tablet 200 mg PO DAILY 12/23/22 Unknown History naproxen 500 mg tablet 500 mg PO BID PRN mild pain 12/23/22 Unknown History Exam Airway Mallampati Class: II TM Dist: >3cm Neck ROM: Full Assessment and Plan Assessment Anesthesia Assessment: Anesthesia Plan Discussed Final Anesthetic Review Family History of Problems with Anesthesia: No History of Problems with Anesthesia: No ASA Class: III Final Preanesthetic Review: No Changes in Pt Med Stat, Meds/Allgs Chart Reviewed, Consent Obtained/Reviewed and Anes Risks/Benef Reviewed Patient Risk: Intermediate Procedure Risk: Low Anesthetic Plan Anesthetic Plan: MAC: Disposition: Standard PACU
--- NOTE | 2023-02-11 13:35 | MHC.SHP ---
Pre-Procedural Eval Section A Date of Service: 02/11/23 Section B Chief Complaint: Hemorrhage of anus and rectum Details of Present Illness: PMH: Abnormal laboratory test Asthma COVID-19 Early stage of Hiatal hernia Missed menses Myofascial pain syndrome Numbness in both hands Obesity, morbid, BMI 40.0-49.9 Polyarthritis Pulmonary nodules Rheumatoid arthritis Surgical History: H/O breast biopsy H/O shoulder surgery Hx of section Hx of cholecystectomy Allergies: Allergies Allergy/AdvReac Type Severity Reaction Status Date / Time No Known Allergies Allergy Verified 01/31/23 08:54 Review of Systems Review of Systems Comment: 10 point ROS negative Exam Exam Comment: Gen appear: No acute distress HEENT: no icterus Chest: No overt resp distress Abd: soft, nontender, nondistended Psych: Stable affect, answering questions appropriately Neuro: A/Ox3 noted to move all extremities spontaneously Ext: no peripheral edema Plan Diagnosis/Plan: Unchanged I have reviewed the history and physical and performed a pertinent physical examination on my patient. No changes have occurred unless specified. Time Spent With Patient Time: Total time managing care of this patient today ____ minutes.
[2023-02-11 13:37] LABS: UPreg QC Valid YES; Urine Pregnancy NEGATIVE (NEGATIVE)
[2023-02-11 13:41] VITALS: BP 133/85; PULSE 85; RESP 18; TEMP 36.6; O2SAT 97; BMI 41.6
--- NOTE | 2023-02-11 14:53 | W.PM.OPN ---
Operative Note Operative Note Date of Service: 02/11/23 Narrative: Procedure: Colonoscopy Indication: Bright red blood per rectum Endoscopist: Crystal Restrepo MD Anesthesia Provider: Pao Singer CRNA Anesthesia type: MAC Instrument: Olympus [id number]-H190L Consent: Indication, risks vs benefits, and alternatives were discussed with the patient who gave written informed consent to proceed. An credit control manager was utilized to assist with the consent. EKG, pulse, pulse oximetry and blood pressure were monitored throughout the procedure. Please see anesthesia flowsheet. Procedure: The patient was brought to the procedure room and placed in the left lateral decubitus position. IV medications were administered by the anesthesia provider in attendance. A digital rectal exam was performed which was abnormal due to hemorrhoids. A distal attachment was affixed to the tip of the scope and the colonoscope was then inserted through the anus and advanced through the colon to the cecum at 70 cm,and terminal ileum. ileocecal valve and appendiceal orifice were identified. Mucosa was carefully examined under high definition white light as the instrument was slowly withdrawn in a retrograde panoramic fashion. Retroflexion was performed in rectum. The procedure was not difficult. There were no immediate obvious complications. The quality of the prep was BBPS: 2+3+2 = adequate Withdrawal time 9 minutes. Limitations: No limitations. Findings: Mucosa: Normal to cecum and terminal ileum. Protruding lesions: Large internal hemorrhoids without stigmata of recent bleeding. Impression: 1. Normal colon and terminal ileum mucosa 2. External and internal hemorrhoids Recommendations: - Intermittent BRBPR likely due to hemorrhoids - Avoid constipation and straining. Increase fiber intake. Can take miralax PRN. - Resume colorectal cancer screening at 45 years
[2023-02-11 15:35] VITALS: BP 123/77; PULSE 87; RESP 16; TEMP 36; O2SAT 98
[2023-02-11 15:50] VITALS: BP 123/86; PULSE 73; RESP 16; TEMP 36.5; O2SAT 99
== END 2023-02-11 17:15 | disposition home or self-care (01) ==
PROVIDERS: Nurse Practitioner; PCP Internal Medicine; Visit Provider Internal Medicine
PROC: 0DJD8ZZ Inspection of Lower Intestinal Tract, Via Natural or Artificial Opening Endoscopic (ICD-10-PCS; CPT 45378; principal; 2023-02-11 15:00)
DX: K62.5 Hemorrhage of anus and rectum (principal); K64.8 Other hemorrhoids; K64.4 Residual hemorrhoidal skin tags; J45.909 Unspecified asthma, uncomplicated; R91.8 Other nonspecific abnormal finding of lung field; M05.9 Rheumatoid arthritis with rheumatoid factor, unspecified; M15.9 Polyosteoarthritis, unspecified; E66.01 Morbid (severe) obesity due to excess calories; Z68.42 Body mass index [BMI] 45.0-49.9, adult; Z79.1 Long term (current) use of non-steroidal anti-inflammatories (NSAID); Z79.899 Other long term (current) drug therapy; Z86.16 Personal history of COVID-19; Z87.891 Personal history of nicotine dependence
CPT/HCPCS: 45378; 81025; J3010

== ENCOUNTER → 2023-02-11 13:08 | Outpatient (BNV) | payer MEDICAID, SELFPAY | PROVIDERS: PCP Internal Medicine; Visit Provider Internal Medicine | DX: K62.5 Hemorrhage of anus and rectum (principal); K64.8 Other hemorrhoids | CPT/HCPCS: 45378 ==

== ENCOUNTER 2023-03-09 09:34 | Emergency (ER) | payer MEDICAID, SELFPAY ==
--- NOTE | ~2023-03-09 | CT_ITS ---
EXAMINATION: CT ABDOMEN AND PELVIS WITHOUT CONTRAST CLINICAL INFORMATION: Bilateral flank pain COMPARISON: None available. TECHNIQUE: Multidetector volumetric imaging was performed from the superior aspect of the liver through the pubic symphysis. Sagittal and coronal reformatted images were obtained on the technologist's workstation. This CT examination was performed using dose optimization techniques as appropriate, variously including the following: *Automated exposure control *Adjustment of mA and/or kV according to patient size (this includes techniques or standardized protocols for targeted exams where dose is matched to indication/reason for exam; i.e. extremities or head) *Use of iterative reconstruction technique DLP: 852 mGy-cm FINDINGS: LUNG BASES: There is patchy groundglass density in medial segment right lower lobe. Heart size is normal. A small hiatal hernia. LIVER, GALLBLADDER, AND BILIARY TREE: The liver is normal in size, shape, and diffusely hypoattenuated No focal hepatic lesion or biliary ductal dilatation is present. The gallbladder has been surgically removed. PANCREAS: Unremarkable. SPLEEN: Unremarkable. ADRENAL GLANDS: Unremarkable. KIDNEYS AND URETERS: The kidneys are normal in size, shape, and attenuation. No hydronephrosis, hydroureter, or calculi seen. No perinephric stranding. BLADDER: Unremarkable. GASTROINTESTINAL TRACT: There is scattered stool and gas seen throughout the colon without significant distention. The small bowel loops are normal caliber. Appendix is normal caliber. There is no free air or inflammatory process. ABDOMINAL WALL: No significant hernia is appreciated. LYMPH NODES: No abnormal size retroperitoneal lymph nodes seen. VASCULAR: Unremarkable. PELVIC VISCERA: The uterus is anteverted and appears unremarkable. There is no free air or free fluid. OSSEOUS STRUCTURES: Unremarkable. CT/CT abdomen pelvis wo IV con IMPRESSION: 1. No acute intra-abdominal process seen. 2. Mild constipation. 3. Mild hepatic steatosis without focal lesion. The gallbladder has been surgically removed 4. No radiopaque renal calculi or hydroureteronephrosis.. Fleischner guidelines were followed.
[2023-03-09 09:43] VITALS: BP 126/89; PULSE 94; RESP 18; TEMP 36.6; O2SAT 97; BMI 48.4
--- NOTE | 2023-03-09 09:47 | ECG_ITS ---
Test Reason : CHEST PAIN Blood Pressure : / mmHG Vent. Rate : 073 BPM Atrial Rate : 073 BPM P-R Int : 148 ms QRS Dur : 084 ms QT Int : 374 ms P-R-T Axes : 041 026 013 degrees QTc Int : 412 ms Normal sinus rhythm Normal ECG When compared with ECG of 31-JAN-2023 09:45, No significant change was found Referred By: Aretha Tejeda Electronically Signed By:DAVID RODRIGUEZ MD
--- NOTE | 2023-03-09 09:48 | ED.GENADULT ---
HPI - General Adult General Chief complaint: Nausea/Vomiting/Diarrhea Stated complaint: Headache, back & abd pain Time Seen by Provider: 03/09/23 09:45 Source: patient Mode of arrival: ambulatory Limitations: no limitations History of Present Illness HPI narrative: 27-year-old female history of obesity, hiatal hernia, asthma, GI bleed, RA presenting to the emergency department with headache ( diffuse feels like typical, no visual changes, weakness or trauma), substernal cp non radiating intermittent, diffuse abd pain, nausea, vomiting, body aches, flank pain,urinary frequency/urgency/dysuria X 6 days. Denies sob, hx of PE, dizziness, fevers, chills Related Data Home Medications Medication Instructions Recorded Confirmed medroxyprogesterone 150 mg/mL mg IM 11/26/22 intramuscular suspension multivitamin 1 tab PO QAM 11/26/22 acetaminophen 650 mg 650 mg PO Q8H PRN mild pain 12/23/22 tablet,extended release albuterol sulfate 90 mcg/actuation 2 puff inhalation Q4-6H PRN 12/23/22 aerosol inhaler (Ventolin HFA) cetirizine 10 mg tablet mg PO 12/23/22 hydroxychloroquine 200 mg tablet 200 mg PO DAILY 12/23/22 naproxen 500 mg tablet 500 mg PO BID PRN mild pain 12/23/22 Previous Rx's Medication Instructions Recorded cholecalciferol (vitamin D3) 125 125 mcg PO DAILY 90 days #90 caps 10/22/22 mcg (5,000 unit) capsule cyanocobalamin (vitamin B-12) 500 500 mcg PO DAILY 90 days #90 tabs 10/22/22 mcg tablet vitamin A palmitate 3,000 mcg 3,000 mcg PO DAILY 90 days #90 caps 10/28/22 (10,000 unit) capsule omeprazole 40 mg capsule,delayed 40 mg PO DAILY 30 days #30 caps 11/01/22 release cefuroxime axetil 500 mg tablet 500 mg PO BID 7 days #14 tabs 01/17/23 ondansetron 4 mg disintegrating 4 mg PO Q8H PRN nausea and 01/17/23 tablet vomiting #20 tabs Enbrel SureClick 50 mg/mL (1 mL) 50 mg subcut QWEEK #4 mL 02/25/23 subcutaneous pen injector (etanercept) ketorolac 10 mg tablet 10 mg PO TID PRN pain 5 days #15 03/09/23 tabs Allergies Allergy/AdvReac Type Severity Reaction Status Date / Time No Known Allergies Allergy Verified 01/31/23 08:54 Review of Systems Review of Systems: Constitutional : No Weight loss, No Fever, No Chills, No Fatigue, No Malaise ENT/Mouth : No sore throat, No Rhinorrhea Eyes: No Eye Pain, No Swelling, No Redness Cardiovascular : No Chest Pain, No SOB, No Dyspnea on Exertion, No Orthopnea, No Edema, No Palpitations Respiratory : No Cough, No Sputum, No Wheezing Gastrointestinal : No Nausea, No Vomiting, No Diarrhea, No Constipation, No abdominal Pain, No Hematochezia, No Melena Genitourinary : No Dysuria, No Urinary Frequency, No Hematuria, Musculoskeletal : No joint pain, No Myalgias, No Joint Swelling Skin : No Skin Lesions, No rash Neuro : No Weakness, No Numbness, No Dizziness, No Headache Psych : No Anxiety/Panic, No Depression All other systems reviewed and are negative Yes all other systems are reviewed and are negative [facility] Past Medical History Attestation statement: The following information was validated with the patient. Source: old records reviewed and nursing notes reviewed Medical History Hiatal hernia Pulmonary nodules Early stage of Obesity, morbid, BMI 40.0-49.9 Missed menses COVID-19 Asthma Rheumatoid arthritis Abnormal laboratory test Numbness in both hands Polyarthritis Myofascial pain syndrome Surgical History Hx of cholecystectomy H/O breast biopsy Hx of section H/O shoulder surgery Family History Family History Maternal Grandmother Diabetes Father HTN (hypertension) Mother HTN (hypertension) Maternal Aunt Colon cancer Social History Alcohol intake: never Patient Tobacco Use Status: Former Tobacco user Tobacco use type: Cigarette Advance Directives: No Advance Directives Information Provided: No Gender identity: Female Physical Exam ED Vital Signs: Vital Signs - 24 hr 11/26/23 09:43 Temperature 97.9 F Pulse Rate 94 Respiratory Rate 18 Blood Pressure 126/89 Pulse Oximetry 97 Oxygen Delivery Method Room Air BMI result Body Mass Index 48.4 vss Appearance: Alert.? Oriented X3.? No acute distress.? Head: Normocephalic, atraumatic, no step-offs or deformities Eyes: Pupils equal, round and reactive to light.?EOMI pain free ENT: Pharynx normal.? Neck: Normal inspection.? Neck supple.? CVS: Normal heart rate and rhythm.? Pulses normal.? Respiratory: No respiratory distress.? Breath sounds normal.? Abdomen: Soft and nontender.? Skin: Skin warm and dry.? Normal skin color.? Normal skin turgor.? Extremities: No lower extremity edema.? No calf ttp. 5/5 strength to bilateral upper and lower extremities Neuro: Oriented X 3.? No motor deficit.? No sensory deficit. CN 2-12 intact . Ambulatory steady gait normal coordination. Normal [id number]. Course Reevaluation(s) Reevaluation #1: CBC unremarkable. Chemistry no acute findings requiring intervention. Total bilirubin 1.5 however this appears to be around patient's baseline. HCG and lipase negative. CT abdomen and pelvis with no acute intra-abdominal process seen, mild constipation, mild hepatic steatosis without focal lesion. Gallbladder has been surgically removed. No radiopaque renal calculi or hydroureteronephrosis. Urine pending. Time: 11:46 Reevaluation #2: UA without infection. Patient states she is feeling better. Will discharge home with Toradol. Educated patient on diagnosis and treatment plan, answered all question, patient verbalizes understanding. At this time patient will be discharged home, advised to return with new or worsening symptoms. Educated on worrisome signs and symptoms and when to return. At this time I feel comfortable discharge home. Tollerating pO Time: 13:24 Medications Administered Discontinued Medications Generic Name Dose Route Start Last Admin Trade Name Freq PRN Reason Stop Dose Admin Ketorolac Tromethamine 30 mg 03/09/23 10:46 03/09/23 11:13 Ketorolac Tromethamine 15 Mg/Ml Vial IM 03/09/23 10:47 30 mg ONCE ONE Administration Medical Decision Making Medical Decision Making [facility] Narrative: [id number] 27 year old female presents w/ urinary sx, abd pain, flank pain, nausea, cp X6 days PE benign Plan- UTI vs kidney stone vs pylo vs viral ilness. Unlikely acute abdomen, ICH, stroke, posterior stroke, pe, acs , dissection Plan- labs, imaging, urine Differential Diagnosis Differential Diagnoses: The differential diagnosis associated with the presentation includes Plan- UTI vs kidney stone vs pylo vs viral ilness. Unlikely acute abdomen, ich, stroke, posterior stroke, pe, acs , dissction Admission/Observation Consideration of admission/observation: Escalation of care including admission/observation considered unlikely Lab Data MDM Lab Attestation statement: I reviewed the patient's lab results. 03/09/23 09:59 03/09/23 09:59 Labs: Lab Results 03/09/23 03/09/23 Range/Units 09:59 13:09 WBC 5.8 (4.8-10.8) X10*3/uL RBC 4.53 (4.20-5.50) X10*6/uL Hgb 12.1 (12.0-16.0) g/dl Hct 38.0 (37.0-47.0) % MCV 83.9 (80.0-98.0) fL MCH 26.7 L (27.0-33.0) pg MCHC 31.8 (31.0-35.0) g/dl RDW 14.1 (11.0-16.0) % Plt Count 246 D (160-400) X10*3/uL MPV 10.0 (9.4-12.3) fL Immature Gran % (Auto) 0.2 (0.0-0.4) % Neut % (Auto) 53.4 (45-73) % Lymph % (Auto) 35.2 (20-40) % Blanco % (Auto) 7.6 (2-11) % Eos % (Auto) 3.1 (0-4) % Baso % (Auto) 0.5 (0-2) % Lymph # (Auto) 2.0 (1.2-4.9) X10*3/uL Blanco # (Auto) 0.4 (0.1-1.2) X10*3/uL Eos # (Auto) 0.2 (0.0-0.4) X10*3/uL Baso # (Auto) 0.0 (0.0-0.2) X10*3/uL Abs Immat Gran (auto) 0.01 (0.00-0.03) X10*3/uL Absolute Neuts (auto) 3.1 (2.0-8.3) x10*3/uL Absolute Nucleated RBC 0.000 (0.0-0.012) X10*3/uL Nucleated RBC % (auto) 0.0 (0.0-0.2) /100WBC Sodium 141 (135-145) mmol/L Potassium 3.5 (3.3-5.1) mmol/L Chloride 109 H (96-108) mmol/L Carbon Dioxide 24 (22-29) mmol/L Anion Gap 12 (12-20) BUN 9 (9-16) mg/dL Creatinine 0.84 (0.5-1.4) mg/dL Estim Creat Clear Calc 117.1 Estimated GFR > 60 Random Glucose 101 (60-115) mg/dL Calcium 9.2 (8.4-10.2) mg/dL Magnesium 1.9 (1.6-2.6) mg/dL Total Bilirubin 1.5 H (0.0-1.0) mg/dL AST 18 (5-31) U/L ALT 20 (0-31) U/L Alkaline Phosphatase 78 (39-117) U/L Troponin I High Sens < 2.7 (<3.5-17.0) ng/L Total Protein 7.0 (6.5-8.0) g/dL Albumin 4.1 (3.5-5.0) g/dL Lipase 13 (8-78) U/L Beta HCG, Quant < 2 mIU/mL Urine Color Yellow Urine Appearance Cloudy Urine pH 6.0 (5.0-9.0) Ur Specific Cornelius >= 1.030 H (1.005-1.025) Urine Protein Negative (Neg-Trace) mg/dL Urine Glucose (UA) Negative (Negative) mg/dL Urine Ketones Trace (Negative) mg/dL Urine Blood Negative (Negative) Urine Nitrite Negative (Negative) Ur Leukocyte Esterase Negative (Negative) COVID-19 (KAYLA) Negative (Negative) COVID-19 Clin Com See Note Influenza Type A (VASILE) Negative (Negative) Influenza Type B (VASILE) Negative (Negative) Influenza A & B Note See Note Independent Interpretation I performed an independent interpretation of an: CT Scan (CT/CT abdomen pelvis wo IV con IMPRESSION: 1. No acute intra-abdominal process seen. 2. Mild constipation. 3. Mild hepatic steatosis without focal lesion. The gallbladder has been surgically removed 4. No radiopaque renal calculi or hydroureteronephrosis.. ) Radiology Impression Discussion of test interpretation with radiology: I have reviewed the radiologist's reading. External Record Review External record reviewed: Inpatient record, Office record, Outpatient record, Prior outpatient labs, Prior outpatient radiology, Primary care record and Outside ED record Chronic Conditions Patient?s care impacted by: Other (RA, asthma, fibromyalgia ) Critical Care Time Critical Care Time Critical Care Time: No Discharge Plan Discharge Clinical Impression: Headache, Flank pain, Abdominal pain, UTI symptoms Patient Disposition: Home, Self-Care Instructions: Acute Headache (ED), Abdominal Pain (ED), Flank Pain (ED) Additional Instructions: Take your medications as prescribed. If you were prescribed antibiotics today, it is important that you take your medication to their entirety, do not skip any doses, do not finish them early. Follow-up with your primary care provider this week. Return to the emergency department with new or worsening symptoms. Such as fevers, chills, chest pain, shortness of breath, nausea, vomiting, dizziness, headache, vision changes, lethargy In case of emergency call 911 Toradol has been sent to your pharmacy, you tolerated this well in the department. Please take this as prescribed do not take this with ibuprofen, or other NSAIDs, do not mix this with alcohol. Side effects of this medication including increased risk for bleeding and possible kidney injury. [facility] hiram medicamentos seg?n lo recetado. Si hoy te recetaron antibi?ticos, es importante que tomes tu medicaci?n en russo totalidad, no te saltes ninguna dosis, no las termines antes de tiempo. Sadie un seguimiento con russo proveedor de atenci?n primaria esta semana. Regrese al departamento de emergencias si los s?ntomas son nuevos o empeoran. Bernabe fiebre, escalofr?os, dolor de pecho, dificultad para respirar, n?useas, v?mitos, mareos, dolor de umu, cambios en la visi?n, letargo. En mitch de emergencia llame al 911. Toradol anton sido enviado a russo farmacia, lo vanessa? geovany en el departamento. T?ni seg?n lo prescrito, no lo tome con ibuprofeno u otros KACEY, no lo mezcle con alcohol. Los efectos secundarios de leon medicamento incluyen un mayor riesgo de sangrado y posible lesi?n renal. CT/CT abdomen pelvis wo IV con IMPRESSION: 1. No acute intra-abdominal process seen. 2. Mild constipation. 3. Mild hepatic steatosis without focal lesion. The gallbladder has been surgically removed 4. No radiopaque renal calculi or hydroureteronephrosis.. CT/CT abdomen pelvis sin conexi?n intravenosa IMPRESI?N: 1. No se observa huma?n proceso intraabdominal nolan. 2. Estre?imiento leve. 3. Esteatosis hep?alaina leve sin lesi?n focal. La ves?cula biliar tiene sido removido quir?rgicamente 4. Ausencia de c?lculos renales radioopacos o hidroureteronefrosis. Prescriptions: New ketorolac 10 mg tablet 10 mg PO TID PRN (Reason: pain) 5 Days Qty: 15 0RF No Action cholecalciferol (vitamin D3) 125 mcg (5,000 unit) capsule 125 mcg PO DAILY 90 Days Qty: 90 1RF cyanocobalamin (vitamin B-12) 500 mcg tablet 500 mcg PO DAILY 90 Days Qty: 90 0RF vitamin A palmitate 3,000 mcg (10,000 unit) capsule 3,000 mcg PO DAILY 90 Days Qty: 90 0RF Enbrel SureClick 50 mg/mL (1 mL) pen injector 50 mg subcut QWEEK Qty: 4 2RF ondansetron 4 mg tablet,disintegrating 4 mg PO Q8H PRN (Reason: nausea and vomiting) Qty: 20 0RF cefuroxime axetil 500 mg tablet 500 mg PO BID 7 Days Qty: 14 0RF hydroxychloroquine 200 mg tablet 200 mg PO DAILY acetaminophen 650 mg tablet extended release 650 mg PO Q8H PRN (Reason: mild pain) cetirizine 10 mg tablet PO albuterol sulfate [Ventolin HFA] 90 mcg/actuation HFA aerosol inhaler 2 puff inhalation Q4-6H PRN naproxen 500 mg tablet 500 mg PO BID PRN (Reason: mild pain) omeprazole 40 mg capsule,delayed release(DR/EC) 40 mg PO DAILY 30 Days Qty: 30 6RF multivitamin Tablet 1 tab PO QAM medroxyprogesterone 150 mg/mL suspension IM Referrals: Marzena Strong MD [Primary Care Provider] - 2 days Stand Alone Forms: Work/School Release
[2023-03-09 10:04] LABS: MANUAL DIFF FLAG NO
[2023-03-09 10:08] LABS: Basophils Percent Auto 0.5 % (0-2); Eosinophils Absolute Auto 0.2 X10*3/uL (0.0-0.4); Eosinophils Percent Auto 3.1 % (0-4); Hemoglobin 12.1 g/dl (12.0-16.0); Imm Gran Abs Auto 0.01 X10*3/uL (0.00-0.03); Imm Gran Pct Auto 0.2 % (0.0-0.4); Lymphocytes Percent Auto 35.2 % (20-40); Mean Corpuscular HGB Conc 31.8 g/dl (31.0-35.0); Mean Corpuscular Hemoglobin 26.7 pg (27.0-33.0); Mean Corpuscular Volume 83.9 fL (80.0-98.0); Monocytes Absolute Auto 0.4 X10*3/uL (0.1-1.2); Monocytes Percent Auto 7.6 % (2-11); Neutrophils Absolute Auto 3.1 x10*3/uL (2.0-8.3); Neutrophils Percent Auto 53.4 % (45-73); Platelet Count 246 X10*3/uL (160-400); Red Blood Count 4.53 X10*6/uL (4.20-5.50); Red Cell Distribution Width 14.1 % (11.0-16.0); White Blood Count 5.8 X10*3/uL (4.8-10.8)
[2023-03-09 10:27] LABS: COVID-19 Test Negative (Negative); IDNOW Serial# 08D9AD1C; IDNOW Serial# BCCEAD1C; Influenza A Negative (Negative); Influenza B2 Negative (Negative)
[2023-03-09 10:29] LABS: Alanine Aminotransferase 20 U/L (0-31); Albumin Level 4.1 g/dL (3.5-5.0); Alkaline Phosphatase 78 U/L (39-117); Anion Gap 12 (12-20); Aspartate Amino Transferase 18 U/L (5-31); Bilirubin Total 1.5 mg/dL (0.0-1.0); Blood Urea Nitrogen 9 mg/dL (9-16); Calcium 9.2 mg/dL (8.4-10.2); Carbon Dioxide 24 mmol/L (22-29); Chloride 109 mmol/L (96-108); Creatinine Clr Calc Pharmacy 117.1; Estimated Glomerular Filt Rate > 60; Glucose Random 101 mg/dL (60-115); Lipase 13 U/L (8-78); Magnesium 1.9 mg/dL (1.6-2.6); Potassium 3.5 mmol/L (3.3-5.1); Sodium 141 mmol/L (135-145)
[2023-03-09 10:31] LABS: HCG Quantitative < 2 mIU/mL; Troponin-I High Sensitivity < 2.7 ng/L (<3.5-17.0)
[2023-03-09] MEDS: Ketorolac Tromethamine 15 MG/ML VIAL 30 MG IM (11:13)
[2023-03-09 13:16] LABS: Appearance Urine Cloudy; Color Urine Yellow; Glucose Urine UA Negative (Negative); Leukocyte Esterase Urine Negative (Negative); Nitrite Urine Negative (Negative); Specific Gravity - Urine >= 1.030 (1.005-1.025); Urine Blood Negative (Negative); Urine Ketones Trace mg/dL (Negative); Urine Protein Negative (Neg-Trace)
== END 2023-03-09 14:13 | disposition home or self-care (01) ==
PROVIDERS: Physician Assistant; Emergency Provider Emergency Medicine; PCP Internal Medicine
DX: R51.9 Headache, unspecified (principal); R30.0 Dysuria; R35.0 Frequency of micturition; R11.2 Nausea with vomiting, unspecified; R19.7 Diarrhea, unspecified; R07.89 Other chest pain; R10.2 Pelvic and perineal pain; Z11.52 Encounter for screening for COVID-19; Z20.822 Contact with and (suspected) exposure to COVID-19; Z87.891 Personal history of nicotine dependence; Z79.899 Other long term (current) drug therapy
CPT/HCPCS: 36415; 74176; 80053; 81003; 83690; 83735; 84484; 84702; 85025; 87502; 87635; 93005; 96372; 99284; J1885

== ENCOUNTER 2023-03-21 15:09 | Outpatient (AMB) | payer MEDICAID, SELFPAY ==
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
[2023-03-21 15:22] VITALS: BP 126/58; PULSE 83; TEMP 35.9; O2SAT 100; BMI 46.6
== END 2023-03-21 17:33 | disposition home or self-care (01) ==
PROVIDERS: PCP Internal Medicine; Visit Provider Physician Assistant Surgical
DX: E66.01 Morbid (severe) obesity due to excess calories (principal)
CPT/HCPCS: 99213

== ENCOUNTER → 2023-03-21 15:09 | Outpatient (BNVA) | payer MEDICAID, SELFPAY | PROVIDERS: PCP Internal Medicine; Visit Provider Physician Assistant Surgical | DX: E66.01 Morbid (severe) obesity due to excess calories (principal); Z68.42 Body mass index [BMI] 45.0-49.9, adult | CPT/HCPCS: 99212 ==

== ENCOUNTER 2023-04-08 13:32 | Outpatient (AMB) | payer MEDICAID, SELFPAY ==
--- NOTE | 2023-04-08 13:39 | MHC.OFFVIS ---
Intake Vital Signs 04/08/23 13:40 Height 5 ft 1 in Weight 246 lb 14.684 oz BMI 46.6 BP 118/62 Blood Pressure Location Lt radial Position Sitting Pulse 91 Pulse Source Pulse Oximeter Temp 97 F Temp Source Skin Pulse Oximetry (%) 100 Oxygen Delivery Method Room Air Intake Visit Reasons: RA Intake Note: Pt last seen 12/23/22 presents today for follow up and test results. 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 Name: [id number] Information Interpreted: clinical only Accompanied by: Self / Same As Patient Allergies No Known Allergies Allergy (Verified 04/08/23 13:45) Medication List - Last Reconciled 04/08/23 by Mao Serrano MD acetaminophen ER 650 mg PO Q8H PRN albuterol sulfate 90 mcg/actuation (Ventolin HFA) 2 puffs inhalation Q4-6H PRN cetirizine mg PO cholecalciferol (vitamin D3) 125 mcg PO DAILY 90 days cyanocobalamin (vitamin B-12) 500 mcg PO DAILY 90 days Enbrel SureClick (etanercept) 50 mg subcut QWEEK NS ketorolac 10 mg PO TID PRN 5 days medroxyprogesterone mg IM multivitamin 1 tab PO QAM naproxen 500 mg PO BID PRN omeprazole 40 mg PO DAILY 30 days ondansetron 4 mg PO Q8H PRN vitamin A palmitate 3,000 mcg PO DAILY 90 days HPI HPI Comments History of Present Illness Details 27-year-old female with seropositive RA returns for follow-up. She has been on Enbrel for 1 month. She states that she feels about the same. Continues to have multiple joint pains especially her hands, knees, toes. She states that more recently she has been having bilateral hand numbness. Initial history: This is a 27-year-old female with seropositive RA who returns for follow-up. She was last evaluated by Dr. House 2 years ago. Patient was started on Cimzia, she mentions that she had a skin rash after the 1st injection and she stopped it. She states that she was then prescribed some medications for rheumatoid arthritis, she does not recall their name. She has not been evaluated by teacher industrial arts in 2 years. Patient is complaining of diffuse pain everywhere. In her neck, shoulders, wrists, hands, lower back. She has morning stiffness of her hands lasting 5 minutes. Stated that she no longer wears her ring due to finger swelling. [facility] Medical History Hiatal hernia Pulmonary nodules Early stage of Obesity, morbid, BMI 40.0-49.9 Missed menses COVID-19 Asthma Rheumatoid arthritis Abnormal laboratory test Numbness in both hands Polyarthritis Myofascial pain syndrome Surgical History Hx of cholecystectomy H/O breast biopsy Hx of section H/O shoulder surgery Family History Maternal Grandmother Diabetes Father HTN (hypertension) Mother HTN (hypertension) Maternal Aunt Colon cancer Social History Alcohol intake: never Patient Tobacco Use Status: Former Tobacco user Tobacco use type: Cigarette Gender identity: Female Review of Systems Musc Reports arthralgias, Reports joint swelling, Reports numbness and Reports stiffness Neuro Reports numbness Physical Exam Vital Signs: Last Vital Signs Temp 97 F 04/08/23 13:40 Pulse 91 04/08/23 13:40 BP 118/62 04/08/23 13:40 Pulse Ox 100 04/08/23 13:40 Oxygen Delivery Method Room Air 04/08/23 13:40 BMI result Body Mass Index 46.6 Const General: cooperative, healthy appearing and comfortable Nutritional Appearance: obese morbidly obese Orientation/consciousness: patient oriented x3 Limitations: no limitations HEENT Head: Yes normocephalic and Yes atraumatic Mouth: moist mucous membranes Resp Effort & Inspection: normal respiratory effort and able to speak in complete sentences Auscultation: clear to auscultation bilaterally Cardio Rate: regular rate Rhythm: regular rhythm Neuro General: patient oriented x3 Extrem Other: Bilateral wrist tenderness and pain with full flexion and extension Left 2nd and 3rd MCP tenderness, positive MCP squeeze test Left 4th and 5th PIP tenderness and diffuse DIP tenderness Equivocal Tinel's sign on the left Negative Tinel sign on the right Right 2nd and 3rd PIP tenderness and diffuse the IP tenderness Bilateral elbow pain with full flexion and extension Bilateral knee pain with full flexion and extension Right 5th MTP tenderness Negative MTP squeeze test bilaterally Assessment & Plan Assessment & Plan (1) Seropositive rheumatoid arthritis: Comment: +RF +++CCP dx 05/2020 Cimzia 06/2020 DC due to skin rash Code(s): M05.9 - Rheumatoid arthritis with rheumatoid factor, unspecified Plan: This is a 27-year-old female with seropositive RA who presents for follow-up. On Enbrel for the last 1 month. Continues to have multiple tender joints. Inform patient that it is too early to assess response to Enbrel. Patient had 6 pregnancies, 3 children and 3 miscarriages. She is currently using the Depo shot for contraception. Does not want to get again. Advised patient that would not be preferred on TNF inhibitors and to let me know if she becomes as Enbrel might have to be stopped. Continue with Enbrel 50 mg weekly Labs before next visit in 3 months (2) High risk medication use: Code(s): Z79.899 - Other nursing home (current) drug therapy Plan: Side effects of Enbrel were discussed with the patient in detail including increased risk of infection, demyelinating disease, reactivation of latent TB, possible increased risk of solid and skin tumors. Patient fully aware. Advised patient to seek medical care [facility] if patient has an infection and advised patient to stop the medication until the infection is resolved. (3) Numbness in both hands: Code(s): R20.0 - Anesthesia of skin Plan: Will check bilateral upper extremity EMG/NCV Plan I spent 26 minutes reviewing patient's chart, evaluating patient, ordering diagnostic workup, counseling patient and documenting in the chart Orders: Orders NE electromyogram (EMG) Today R20.0 - Anesthesia of skin Comprehensive Met. Panel 3 Months M05.9 - Rheumatoid arthritis with rheumatoid factor, unspecified C Reactive Protein 3 Months M05.9 - Rheumatoid arthritis with rheumatoid factor, unspecified Erythrocyte Sedimentation Rate 3 Months M05.9 - Rheumatoid arthritis with rheumatoid factor, unspecified Complete Blood Count Auto Diff 3 Months M05.9 - Rheumatoid arthritis with rheumatoid factor, unspecified Coding Level of Care Code Est Pt Level 4 (71190) Diagnoses Seropositive rheumatoid arthritis M05.9 High risk medication use Z79.899 Numbness in both hands R20.0
[2023-04-08 13:40] VITALS: BP 118/62; PULSE 91; TEMP 36.1; O2SAT 100; BMI 46.6
== END 2023-04-08 14:01 | disposition home or self-care (01) ==
PROVIDERS: PCP Internal Medicine; Visit Provider Student in an Organized Health Care Education/Training Program
DX: M05.79 Rheumatoid arthritis with rheumatoid factor of multiple sites without organ or systems involvement (principal); Z79.899 Other long term (current) drug therapy; R20.0 Anesthesia of skin
CPT/HCPCS: 99214

== ENCOUNTER → 2023-04-08 13:32 | Outpatient (BNVA) | payer MEDICAID, SELFPAY | PROVIDERS: PCP Internal Medicine; Visit Provider Student in an Organized Health Care Education/Training Program | DX: M05.9 Rheumatoid arthritis with rheumatoid factor, unspecified (principal); R20.0 Anesthesia of skin; Z79.899 Other long term (current) drug therapy | CPT/HCPCS: 99212 ==

== ENCOUNTER 2023-05-11 08:41 | Emergency (ER) | payer MEDICAID, SELFPAY ==
[2023-05-11 08:46] VITALS: BP 109/77; PULSE 89; RESP 20; TEMP 36.6; O2SAT 98; BMI 44.9
--- NOTE | 2023-05-11 09:07 | ED.BACK ---
HPI - Back Pain/Injury General Chief Complaint: Back Pain/Injury Stated Complaint: Lower back pain Time Seen by Provider: 05/11/23 09:04 Source: patient Mode of arrival: ambulatory Limitations: language barrier ([place]-speaking center medical specialist utilized) History of Present Illness HPI Narrative: patient is a 28-year-old female who presents emergency department reports of myalgias, lower back pain, intermittent headache, chills. Onset of symptoms was 2 days ago. Denies cough, shortness of breath, difficulty breathing, chest pain. Denies recent precipitating injury, burning with micturition, urinary frequency/urgency/hesitancy, bladder or bowel dysfunction, numbness or tingling of the perineum or bilateral legs. Denies any recent surgical procedures, any known immune compromising conditions, personal history of cancer, or IV drug usage. MD elicited complaint: back pain Related Data Home Medications Medication Instructions Recorded Confirmed medroxyprogesterone 150 mg/mL mg IM 11/26/22 04/08/23 intramuscular suspension multivitamin 1 tab PO QAM 11/26/22 04/08/23 acetaminophen 650 mg 650 mg PO Q8H PRN mild pain 12/23/22 04/08/23 tablet,extended release albuterol sulfate 90 mcg/actuation 2 puff inhalation Q4-6H PRN 12/23/22 04/08/23 aerosol inhaler (Ventolin HFA) cetirizine 10 mg tablet mg PO 12/23/22 04/08/23 naproxen 500 mg tablet 500 mg PO BID PRN mild pain 12/23/22 04/08/23 Previous Rx's Medication Instructions Recorded cholecalciferol (vitamin D3) 125 125 mcg PO DAILY 90 days #90 caps 10/22/22 mcg (5,000 unit) capsule cyanocobalamin (vitamin B-12) 500 500 mcg PO DAILY 90 days #90 tabs 10/22/22 mcg tablet vitamin A palmitate 3,000 mcg 3,000 mcg PO DAILY 90 days #90 caps 10/28/22 (10,000 unit) capsule omeprazole 40 mg capsule,delayed 40 mg PO DAILY 30 days #30 caps 11/01/22 release ondansetron 4 mg disintegrating 4 mg PO Q8H PRN nausea and 01/17/23 tablet vomiting #20 tabs Enbrel SureClick 50 mg/mL (1 mL) 50 mg subcut QWEEK #4 mL 02/25/23 subcutaneous pen injector (etanercept) ketorolac 10 mg tablet 10 mg PO TID PRN pain 5 days #15 03/09/23 tabs oseltamivir 75 mg capsule (Tamiflu) 75 mg PO BID 5 days #10 caps 05/11/23 Allergies Allergy/AdvReac Type Severity Reaction Status Date / Time No Known Allergies Allergy Verified 04/08/23 13:45 Review of Systems Review of Systems: Yes all other systems are reviewed and are negative [facility] Past Medical History Attestation statement: The following information was validated with the patient. Source: old records reviewed Medical History Hiatal hernia Pulmonary nodules Early stage of Obesity, morbid, BMI 40.0-49.9 Missed menses COVID-19 Asthma Rheumatoid arthritis Abnormal laboratory test Numbness in both hands Polyarthritis Myofascial pain syndrome Surgical History Hx of cholecystectomy H/O breast biopsy Hx of section H/O shoulder surgery Family History Family History Maternal Grandmother Diabetes Father HTN (hypertension) Mother HTN (hypertension) Maternal Aunt Colon cancer Social History Social History Alcohol intake: never Patient Tobacco Use Status: Former Tobacco user Tobacco use type: Cigarette Advance Directives: No Gender identity: Female Physical Exam Vital Signs: Vital Signs: Last Vital Signs Temp 97.9 F 05/11/23 08:46 Pulse 89 05/11/23 08:46 Resp 20 05/11/23 08:46 BP 109/77 05/11/23 08:46 Pulse Ox 98 05/11/23 08:46 O2 Del Method Room Air 05/11/23 08:46 BMI result Body Mass Index 44.9 Appearance: Alert.?Oriented to person, place and time. No acute distress.?Normal affect. Eyes: Pupils equal, round and reactive to light.? ENT: Pharynx normal.?? Neck: Normal inspection.? Neck supple.?? No cervical lymphadenopathy CVS: Heart sounds normal. Normal heart rate and rhythm.? Pulses normal Respiratory: No respiratory distress.? Lung sounds clear to auscultation bilaterally?? Abdomen: Soft and non-tender. Normoactive bowel sounds. No pulsatile mass.?? Skin: Skin warm and dry.? Normal skin color.? Normal skin turgor.?? Extremities: No lower extremity edema.? No calf ttp? Back: No CVA tenderness. No midline spinal tenderness, step-off's, or deformity. Full ROM intact in bilateral lower extremities. No rashes, lesions, areas of induration or fluctuance, or signs of infection noted., Neuro: Moves all extremities spontaneously. 5/5 strength in hip extension/flexion, abduction, adduction. Sensation to light touch intact bilaterally. Patellar and Achilles reflex 2+ bilaterally. No ataxia, gait normal and steady.. No focal neuro deficits. Medical Decision Making Medical Decision Making [facility] Narrative: Patient is a 28-year-old female, presenting for evaluation of viral type symptoms as per HPI. COVID-19 testing negative. Influenza B testing positive, which is the most likely etiology for her myalgias and symptoms.. At this time history and physical exam not consistent with Spinal fracture, spinal infection, epidural abscess, or dissection. No high-risk past medical history. No focal neurological deficits. No evidence of urinary tract infection, negative . Well-appearing, nontoxic, afebrile, no tachycardia or tachypnea/hypoxia. Speaking clear full sentences, ambulatory with steady gait. Offered Tamiflu and accepted. Discussed conservative treatment including rest, hydration, Tylenol/ibuprofen as needed for fever and body aches, saline nasal spray, humidifier, [id number]-hkm-[id number] cold medication. Advised to follow-up with primary care provider as needed, discussed reasons to return back to the emergency department. All questions were answered. Patient discharged home in stable condition. Provided with a return to work/school note. Differential Diagnosis Differential Diagnoses: The differential diagnosis associated with the presentation includes ( see narrative above) Admission/Observation Consideration of admission/observation: Escalation of care including admission/observation considered ( see narrative above) Lab Data [facility] Lab Attestation statement: I reviewed the patient's lab results. ( as per narrative above) Labs: Lab Results 05/11/23 Range/Units 09:11 Urine Color Yellow Urine Appearance Clear Urine pH 6.5 (5.0-9.0) Ur Specific [place] <= 1.005 (1.005-1.025) Urine Protein Negative (Neg-Trace) mg/dL Urine Glucose (UA) Negative (Negative) mg/dL Urine Ketones Negative (Negative) mg/dL Urine Blood Negative (Negative) Urine Nitrite Negative (Negative) Ur Leukocyte Esterase Negative (Negative) Urine Test NEGATIVE (NEGATIVE) COVID-19 (KAYLA) Negative (Negative) COVID-19 Clin Com See Note Influenza Type A (VASILE) Negative (Negative) Influenza Type B (VASILE) Positive A (Negative) Influenza A & B Note See Note External Record Review External record reviewed: Outpatient record Tests considered The following testing was considered but not selected: see narrative above, CXR defered, low suspicion PNA Prescription Management I considered prescription management with: Pain Medication and Antiviral Discharge Plan Discharge Clinical Impression: Influenza B Patient Disposition: Home, Self-Care Instructions: Influenza (ED) Additional Instructions: Be sure to rest, stay well hydrated drinking plenty of fluids, eat small frequent meals. Tylenol/ibuprofen can be used as needed for fever/pain. Gagc-soq-[id number] cold medications may be helpful as well for symptoms. Saline nasal spray, humidifier may be helpful for nasal congestion. You may return to the emergency department with any new or worsening symptoms or concerns. Follow-up with your primary care provider as needed. Should remain out of school/ work until symptoms have resolved and have been without a fever for 24 hours without the use of Tylenol or ibuprofen. Prescriptions: New oseltamivir [Tamiflu] 75 mg capsule 75 mg PO BID 5 Days Qty: 10 0RF No Action cholecalciferol (vitamin D3) 125 mcg (5,000 unit) capsule 125 mcg PO DAILY 90 Days Qty: 90 1RF cyanocobalamin (vitamin B-12) 500 mcg tablet 500 mcg PO DAILY 90 Days Qty: 90 0RF vitamin A palmitate 3,000 mcg (10,000 unit) capsule 3,000 mcg PO DAILY 90 Days Qty: 90 0RF Enbrel SureClick 50 mg/mL (1 mL) pen injector 50 mg subcut QWEEK Qty: 4 2RF ketorolac 10 mg tablet 10 mg PO TID PRN (Reason: pain) 5 Days Qty: 15 0RF ondansetron 4 mg tablet,disintegrating 4 mg PO Q8H PRN (Reason: nausea and vomiting) Qty: 20 0RF acetaminophen 650 mg tablet extended release 650 mg PO Q8H PRN (Reason: mild pain) cetirizine 10 mg tablet PO albuterol sulfate [Ventolin HFA] 90 mcg/actuation HFA aerosol inhaler 2 puff inhalation Q4-6H PRN naproxen 500 mg tablet 500 mg PO BID PRN (Reason: mild pain) omeprazole 40 mg capsule,delayed release(DR/EC) 40 mg PO DAILY 30 Days Qty: 30 6RF multivitamin Tablet 1 tab PO QAM medroxyprogesterone 150 mg/mL suspension IM Referrals: Marzena Strong MD [Primary Care Provider] -
[2023-05-11 09:19] LABS: Appearance Urine Clear; Color Urine Yellow; Glucose Urine UA Negative (Negative); Leukocyte Esterase Urine Negative (Negative); Nitrite Urine Negative (Negative); PH 6.5 (5.0-9.0); Specific Gravity - Urine <= 1.005 (1.005-1.025); UPreg QC Valid YES; Urine Blood Negative (Negative); Urine Ketones Negative (Negative); Urine Pregnancy NEGATIVE (NEGATIVE); Urine Protein Negative (Neg-Trace)
[2023-05-11 09:30] LABS: COVID-19 Test Negative (Negative); IDNOW Serial# 08D9AD1C
[2023-05-11 09:32] LABS: IDNOW Serial# 152EDE1D; Influenza A Negative (Negative); Influenza B2 Positive (Negative)
== END 2023-05-11 09:58 | disposition home or self-care (01) ==
PROVIDERS: Nurse Practitioner Family; Emergency Provider Emergency Medicine; PCP Internal Medicine
DX: J10.1 Influenza due to other identified influenza virus with other respiratory manifestations (principal); M54.50 Low back pain, unspecified; R51.9 Headache, unspecified; Z11.52 Encounter for screening for COVID-19; Z79.899 Other long term (current) drug therapy
CPT/HCPCS: 81003; 81025; 87502; 87635; 99283

== ENCOUNTER 2023-05-15 10:35 | Outpatient (REF) | payer MEDICAID, SELFPAY ==
[2023-05-15 12:37] LABS: Erythrocyte Sedimentation Rate 6 MM/HR (0-20)
[2023-05-15 12:40] LABS: C Reactive Protein 0.14 mg/dL (< or = 0.50)
[2023-05-16 12:43] LABS: Anti DNA DS Antibody <1 IU/mL; Complement C3 95 mg/dL (83-193); SM/Ribonucleoprotein Ab <1.0 NEG AI (<1.0 NEG); Smith Protein <1.0 NEG AI (<1.0 NEG)
[2023-05-20 15:33] LABS: DNAds, Crithidia Antibody Negative (Negative)
[2023-05-21 04:50] LABS: Histone Antibody <1.0 U (<1.0)
[2023-05-21 07:03] LABS: PTT (LAC) Screen 35 sec (<=40)
[2023-05-25 14:13] LABS: Anti Nuclear Antibody Pattern Nuclear, Speckled; Anti Nuclear Antibody Screen POSITIVE (NEGATIVE); Anti Nuclear Antibody Titer 1:40 titer
== END 2023-05-15 10:36 | disposition home or self-care (01) ==
LOC: HO.LAB 10:35
PROVIDERS: PCP Internal Medicine; Visit Provider Nurse Practitioner Family
DX: R21 Rash and other nonspecific skin eruption (principal); R76.0 Raised antibody titer
CPT/HCPCS: 36415; 83516; 85597; 85598; 85613; 85652; 85730; 86038; 86039; 86140; 86160; 86225; 86235; 86255; 99212

== ENCOUNTER 2023-05-15 10:35 | Outpatient (AMB) | payer MEDICAID, SELFPAY ==
--- NOTE | 2023-05-15 10:41 | A.OFFVIS_ITS ---
Intake Vital Signs 05/15/23 10:42 Height 5 ft 1 in Weight 236 lb 15.951 oz BMI 44.8 BP 120/84 Blood Pressure Location Rt brachial Position Sitting Pulse 82 Pulse Source Pulse Oximeter Temp 97.5 F Temp Source Skin Pulse Oximetry (%) 96 Oxygen Delivery Method Room Air Intake Visit Reasons: Rash Intake Note: Patient presents to office today c/o facial redness and rash patches on left upper arm and left shoulder blade. Delicatessen Clerk Required: Yes Delicatessen Clerk Language: Pairing Machine Operator Name: Sia [id number] Information Interpreted: clinical only Accompanied by: Self / Same As Patient Allergies No Known Allergies Allergy (Verified 05/15/23 10:42) HPI HPI Comments History of Present Illness Details Ms. Lynn is here today on a urgent visit for rash which she believes is related to Enbrel. The the patient shows picture of red, ertyhematous, maculous rash to her cheeks nose and forehead. She shares that she has had the rash recurring before prior to start of Enbrel but she believes it is now more frequent since starting Enbrel. She shows areas of upper back and upper arms where she thinks the rash is occurring. Prior Visit 04/08/2023 27-year-old female with seropositive RA returns for follow-up. She has been on Enbrel for 1 month. She states that she feels about the same. Continues to have multiple joint pains especially her hands, knees, toes. She states that more recently she has been having bilateral hand numbness. Initial history: This is a 27-year-old female with seropositive RA who returns for follow-up. She was last evaluated by Dr. House 2 years ago. Patient was started on Cimzia, she mentions that she had a skin rash after the 1st injection and she stopped it. She states that she was then prescribed some medications for rheumatoid arthritis, she does not recall their name. She has not been evaluated by brake lining finisher asbestos in 2 years. Patient is complaining of diffuse pain everywhere. In her neck, shoulders, wrists, hands, lower back. She has morning stiffness of her hands lasting 5 minutes. Stated that she no longer wears her ring due to finger swelling. [facility] Medical History (Updated 05/15/23 @ 11:13 by ROBERT Sneed) Anti-cardiolipin antibody positive Rash and other nonspecific skin eruption Hiatal hernia Pulmonary nodules Early stage of Obesity, morbid, BMI 40.0-49.9 Missed menses COVID-19 Asthma Rheumatoid arthritis Abnormal laboratory test Numbness in both hands Polyarthritis Myofascial pain syndrome Surgical History Hx of cholecystectomy H/O breast biopsy Hx of section H/O shoulder surgery Family History Maternal Grandmother Diabetes Father HTN (hypertension) Mother HTN (hypertension) Maternal Aunt Colon cancer Social History Alcohol intake: never Patient Tobacco Use Status: Former Tobacco user Tobacco use type: Cigarette Gender identity: Female Physical Exam Vital Signs: Last Vital Signs Temp 97.5 F 05/15/23 10:42 Pulse 82 05/15/23 10:42 BP 120/84 05/15/23 10:42 Pulse Ox 96 05/15/23 10:42 Oxygen Delivery Method Room Air 05/15/23 10:42 BMI result Body Mass Index 44.8 Appearance: Alert.?Oriented to person, place and time. No acute distres s.?Normal affect. Neck: Normal inspection.? Neck supple.?? No cervical lymphadenopathy CVS: Heart sounds normal. Normal heart rate and rhythm.? Pulses normal Respiratory: No respiratory distress.? Lung sounds clear to auscultation bilaterally? Skin: Skin warm and dry. Normal skin turgor.??mild Hypopigmented areas to face. one small scaly patch to right scapula region Extremities: No hand swelling. No lower extremity edema.? Moves all extremities spontaneously. Full ROM intact in bilateral extremities Neuro: Moves all extremities spontaneously. No ataxia, gait normal and steady.. No focal neuro deficits. Assessment & Plan Assessment & Plan (1) Rash and other nonspecific skin eruption: Code(s): R21 - Rash and other nonspecific skin eruption (2) Anti-cardiolipin antibody positive: Code(s): R76.0 - Raised antibody titer Plan #Skin Rash: Ms. Lynn has had this rash recurring before the start of Enbrel. She has been treating with topical creams prescribed by PCP. It appears she also had similar experience with Cimzia in 2020 so she stopped after two injections. Patient will continue to Enbrel for now. We will stop the TNF class and we will start thr PA for Actemra. 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 Will do additional to further evaluate. Orders: Orders Anti Extractable Nuclear Ag Today R21 - Rash and other nonspecific skin eruption, R76.0 - Raised antibody titer ISAMAR Reflex Titer and Pattern Today R21 - Rash and other nonspecific skin eruption, R76.0 - Raised antibody titer Complement C3 Today R21 - Rash and other nonspecific skin eruption, R76.0 - Raised antibody titer Lupus Anticoagulant Panel Today R21 - Rash and other nonspecific skin eruption, R76.0 - Raised antibody titer DNA Double Stranded-Crithidia Today R21 - Rash and other nonspecific skin eruption, R76.0 - Raised antibody titer Histone Antibody Today R21 - Rash and other nonspecific skin eruption, R76.0 - Raised antibody titer Anti DNA DS Antibody Today R21 - Rash and other nonspecific skin eruption, R76.0 - Raised antibody titer Complement C4 Today R21 - Rash and other nonspecific skin eruption, R76.0 - Raised antibody titer C Reactive Protein Today R21 - Rash and other nonspecific skin eruption, R76.0 - Raised antibody titer Erythrocyte Sedimentation Rate Today R21 - Rash and other nonspecific skin eruption, R76.0 - Raised antibody titer Coding Level of Care Code Est Pt Level 3 (21168) Diagnoses Rash and other nonspecific skin eruption R21 Anti-cardiolipin antibody positive R76.0
[2023-05-15 10:42] VITALS: BP 120/84; PULSE 82; TEMP 36.4; O2SAT 96; BMI 44.8
== END 2023-05-15 11:19 | disposition home or self-care (01) ==
PROVIDERS: PCP Internal Medicine; Visit Provider Nurse Practitioner Family
DX: R21 Rash and other nonspecific skin eruption (principal); R76.0 Raised antibody titer
CPT/HCPCS: 99213

== ENCOUNTER 2023-05-16 08:43 | Outpatient (AMB) | payer MEDICAID, SELFPAY ==
--- NOTE | 2023-05-16 09:12 | MHC.OFFVISWM ---
Intake VS Expanded 05/16/23 09:24 BP 147/80 H Blood Pressure Location Rt brachial Blood Pressure Position Sitting Pulse 69 Pulse Source Pulse Oximeter Temp 97.1 F Temperature Source Temporal Artery Scan Pulse Oximetry 100 Oxygen Delivery Method Room Air Height 5 ft 1 in Weight 235 lb 12.8 oz BMI 44.5 Body Fat % 47.0 Body Fat Mass 110.6 Fat Free Mass 125.0 Visceral Fat Rating 13.0 Body Water % 38.1 Body Water Mass 89.8 Muscle Mass/Score 118.6 Basal Metabolic Rate/Score 1,800 Intake Visit Reasons: (OV) F/U SWL Freelance Recruiter Required: Yes Freelance Recruiter Name: office cmi Allergies No Known Allergies Allergy (Verified 05/16/23 09:17) Medication List - Last Reconciled 05/16/23 by [place] Villalta acetaminophen ER 650 mg PO Q8H PRN albuterol sulfate 90 mcg/actuation (Ventolin HFA) 2 puffs inhalation Q4-6H PRN Enbrel SureClick (etanercept) 50 mg subcut QWEEK NS ketorolac 10 mg PO TID PRN 5 days HPI HPI Comments History of Present Illness Details The patient is a pleasant 27 year old female who returns to the clinic for pre-operative surgical weight loss management. They were last seen in the office on 03/21/23, recorded weight at that time was 246.4 pounds, with a BMI of 46.6. Today's weight is 235.8pounds and BMI is 44.6. There has been a weight loss of 14.4 pounds since initiating the surgical weight loss program on 10/18/2022 with a total body weight loss of 5.7 %. Pre op work up completed as follows: SWL classes:? [] appts: needs f/u ? ? RD appts: needs f/u Labs: 10/22/22-low A, D, B12:297 H. pylori: 10/18/22-neg CXR: 10/22/22-nad EK10/22/22-normal ABD U/S: 11/01/22-missed UGI: 10/23/22-mod HH, GERD The patient reports she has been anxious over the last month or so and has a therapist and sees them weekly and has discussed this with them. She does not like the premier protein powder and wants to use a different brand. recommended current meal plan includes: 3 Premier protein shakes ([employer], [employer], [facility]), (1 scoop in 8 oz low fat unsweetened almond milk each) First shake at 10am-12pm Second shake at? 1pm-3pm 1 protein bar (Zone Perfect bars at [employer], [facility], or [employer]) at 4pm-6pm. Dinner at 6pm (9 forks of protein and 9 forks of salad/vegetables). Another shake with 1 scoop in 8 oz unsweetened almond milk at 8pm-10pm. Drinking 64-80 oz of water, no longer drinking soda Current exercise plan includes: zoomba, 1 x per week PF membership, not going much PFS Medical History Anti-cardiolipin antibody positive Rash and other nonspecific skin eruption Hiatal hernia Pulmonary nodules Early stage of Obesity, morbid, BMI 40.0-49.9 Missed menses COVID-19 Asthma Rheumatoid arthritis Abnormal laboratory test Numbness in both hands Polyarthritis Myofascial pain syndrome Surgical History Hx of cholecystectomy H/O breast biopsy Hx of section H/O shoulder surgery Family History Maternal Grandmother Diabetes Father HTN (hypertension) Mother HTN (hypertension) Maternal Aunt Colon cancer Social History Alcohol intake: never Patient Tobacco Use Status: Former Tobacco user Tobacco use type: Cigarette Gender identity: Female Physical Exam Vital Signs: Last Vital Signs Temp 97.1 F 05/16/23 09:24 Pulse 69 05/16/23 09:24 BP 147/80 H 05/16/23 09:24 Pulse Ox 100 05/16/23 09:24 Oxygen Delivery Method Room Air 05/16/23 09:24 BMI result Body Mass Index 44.5 Const General: healthy appearing and no acute distress Resp Effort & Inspection: normal respiratory effort Auscultation: clear to auscultation bilaterally Cardio Rate: regular rate Rhythm: regular rhythm GI Auscultation: normal bowel sounds Extrem General: Yes normal to inspection Assessment & Plan Assessment & Plan (1) Morbid obesity: Code(s): E66.01 - Morbid (severe) obesity due to excess calories Plan: Discussed the importance of adhering to a meal plan as well as communicating weekly. She states that she will do so. Discussed the need for follow-up with behavioral health therapist and dietitian as well as needing an ultrasound. She states that she will follow the plans and text with any questions or concerns. We also discussed the critical need for exercise. She will go to the gym, [employer], 5 times per week with a goal of burning 400 calories per session. 2 Pure protein shakes ([employer], [employer], [facility]), (1 scoop in 8 oz low fat unsweetened almond milk each) First shake at 10am-12pm Second shake at? 1pm-3pm 1 protein bar (Zone Perfect bars at [employer], [facility], or [employer]) at 4pm-6pm. Dinner at 6pm (8 forks of protein and 8 forks of salad/vegetables). Coding Level of Care Code Est Pt Level 3 (70342) Diagnoses Morbid obesity E66.01
[2023-05-16 09:24] VITALS: BP 147/80; PULSE 69; TEMP 36.2; O2SAT 100; BMI 44.5
== END 2023-05-16 09:46 | disposition home or self-care (01) ==
PROVIDERS: PCP Internal Medicine; Visit Provider Physician Assistant Surgical
DX: E66.01 Morbid (severe) obesity due to excess calories (principal)
CPT/HCPCS: 99213

== ENCOUNTER 2023-05-16 14:01 | Outpatient (REF) | payer MEDICAID, SELFPAY ==
--- NOTE | 2023-05-16 14:04 | EMG_ITS ---
Chief complaint: Right worse than left hand numbness History of RA Reason for referral: Evaluate for Carpal Tunnel Syndrome Referred by: Dr. Serrano Procedure done: Bilateral upper extremities NCS/EMG Precautions and/or limitations: None Italian speaking, seen with Fish Hatchery Superintendent. The limb temperature was monitored continuously and remained between 32-36 degrees C during the performance of the NCS. Nerve Conduction Studies Anti Sensory Summary Table ?Stim Site NR Onset (ms) Norm Onset (ms) Peak (ms) Norm Peak (ms) O-P Amp (?V) Norm O-P Amp Site1 Site2 Delta-0 (ms) Dist (cm) Michel (m/s) Norm Michel (m/s) Left Median Anti Sensory (2nd Digit) Wrist ? 2.2 2.8 <3.6 50.9 >10 Wrist 2nd Digit 2.2 14.0 64 Right Median Anti Sensory (2nd Digit) Wrist ? 2.2 2.7 <3.6 41.4 >10 Wrist 2nd Digit 2.2 14.0 64 Right Radial Anti Sensory (Thumb) Forearm ? 1.1 1.7 <3.1 23.1 Forearm Thumb 1.1 0.0 Left Ulnar Anti Sensory (5th Digit) Wrist ? 1.1 2.7 <3.7 15.7 >15.0 Wrist 5th Digit 1.1 14.0 127 Right Ulnar Anti Sensory (5th Digit) Wrist ? 1.3 2.5 <3.7 15.0 >15.0 Wrist 5th Digit 1.3 14.0 108 Motor Summary Table ?Stim Site NR Onset (ms) Norm Onset (ms) O-P Amp (mV) Norm O-P Amp iAmp (mV) Amp (1st) (%) Site1 Site2 Delta-0 (ms) Dist (cm) Michel (m/s) Norm Michel (m/s) Left Median Motor (Abd Poll Brev) Wrist ? 3.1 <3.9 10.4 >4.5 12.9 100.0 Elbow Wrist 3.0 18.0 60 >45 Elbow ? 6.1 10.1 12.1 97.1 Right Median Motor (Abd Poll Brev) Wrist ? 2.9 <3.9 10.4 >4.5 12.3 100.0 Elbow Wrist 3.2 20.0 63 >45 Elbow ? 6.1 10.2 11.8 98.1 Left Ulnar Motor (Abd Dig Minimi) Wrist ? 2.5 <3.0 7.1 >5 9.0 100.0 B Elbow Wrist 2.4 16.0 67 >45 B Elbow ? 4.9 7.1 9.2 100.0 A Elbow B Elbow 1.2 10.0 83 >45 A Elbow ? 6.1 7.1 9.0 100.0 Right Ulnar Motor (Abd Dig Minimi) Wrist ? 2.4 <3.0 8.1 >5 10.1 100.0 B Elbow Wrist 2.6 17.0 65 >45 B Elbow ? 5.0 8.3 10.7 102.5 A Elbow B Elbow 1.0 10.0 100 >45 A Elbow ? 6.0 8.2 10.6 101.2 EMG ?Side Muscle Nerve Root Ins Act Fibs Psw Amp Dur Poly Recrt Int Pat Comment Right 1stDorInt Ulnar C8-T1 Nml Nml Nml Nml Nml 0 Nml Complete Right FlexCarRad Median C6-7 Nml Nml Nml Nml Nml 0 Nml Complete Right Biceps Musculocut C5-6 Nml Nml Nml Nml Nml 0 Nml Complete Right Triceps Radial C6-7-8 Nml Nml Nml Nml Nml 0 Nml Complete Right Deltoid Axillary C5-6 Nml Nml Nml Nml Nml 0 Nml Complete Left 1stDorInt Ulnar C8-T1 Nml Nml Nml Nml Nml 0 Nml Complete Left FlexCarRad Median C6-7 Nml Nml Nml Nml Nml 0 Nml Complete Left Biceps Musculocut C5-6 Nml Nml Nml Nml Nml 0 Nml Complete Left Triceps Radial C6-7-8 Nml Nml Nml Nml Nml 0 Nml Complete Left Deltoid Axillary C5-6 Nml Nml Nml Nml Nml 0 Nml Complete FINDINGS: All motor and sensory nerves tested showed normal latencies, amplitudes and conduction velocities. Concentric needle EMG was performed in selected muscles of the upper extremity. Study did not reveal signs of electric abnormalities as shown in the table below. IMPRESSION: 1. This is a normal study. 2. There is no electrodiagnostic evidence for median neuropathy, ulnar neuropathy, brachial plexopathy, or cervical radiculopathy. Thank you for your kind referral. Letty Menard MD, ANNY Board Certified, [place] Board [employer] and [employer] (ABPMR) Board Certified, [place] Board of Electrodiagnostic Medicine (ABEM) CODIN [id number] x 2 [facility]
== END 2023-05-16 14:02 | disposition home or self-care (01) ==
LOC: HO.NEURO 14:01
PROVIDERS: PCP Internal Medicine; Visit Provider Student in an Organized Health Care Education/Training Program
DX: R20.0 Anesthesia of skin (principal); E66.01 Morbid (severe) obesity due to excess calories
CPT/HCPCS: 95886; 95911; 99212

== ENCOUNTER → 2023-05-16 14:04 | Outpatient (BNV) | payer MEDICAID, SELFPAY | PROVIDERS: PCP Internal Medicine; Visit Provider Physical Medicine & Rehabilitation | DX: M79.641 Pain in right hand (principal); M79.642 Pain in left hand | CPT/HCPCS: 95886; 95911 ==

== ENCOUNTER 2023-05-26 09:09 | Outpatient (REF) | payer MEDICAID, SELFPAY ==
--- NOTE | ~2023-05-26 | US_ITS ---
EXAMINATION: US COMPLETE ABDOMEN WITH LIVER ELASTOGRAPHY CLINICAL INFORMATION: Morbid obesity. COMPARISON: None available. TECHNIQUE: Real-time imaging of the abdominal viscera. Noninvasive ultrasound liver fibrosis assessment is performed using Simeon ElastPQ point quantification shear wave elastography (2D-SWE) with a C5-2 MHz transducer. Multiple elastography samples are obtained. FINDINGS: PANCREAS: Normal. The visualized pancreatic head and body are normal in appearance. The remainder of the pancreas is obscured from visualization by the overlying bowel gas. ABDOMINAL AORTA: The proximal, middle, and distal aortic segments are normal in caliber. INFERIOR VENA CAVA: Visualized portions are normal. LIVER: Normal. The liver demonstrates normal size, contour and echogenicity. No focal lesion or intrahepatic biliary duct dilatation. The right lobe measures 15.1 cm in length. The left lobe measures 11.5 cm in length. Portal flow is towards the liver (hepatopetal). Shear wave liver elastography median stiffness is 1.58 m/s (reference: normal median stiffness is 1.3 m/s or less). IQR/median stiffness to assess sampling precision is 0.06 (reference: good quality data set is IQR/median stiffness of 0.15 or less). GALLBLADDER: Surgically absent. COMMON BILE DUCT: Normal in caliber measuring 0.6 cm in diameter. RIGHT KIDNEY: Normal. No hydronephrosis. No renal calculi or focal parenchymal lesions. The kidney measures 9.7 cm in maximum dimension. LEFT KIDNEY: Normal. No hydronephrosis. No renal calculi or focal parenchymal lesions. The kidney measures 10.8 cm in maximum dimension. SPLEEN: Normal. The spleen measures 10.0 cm in maximum dimension. FREE FLUID: None. US/US abdomen comp w elastography IMPRESSION: 1. There is generalized increase in hepatic echotexture, consistent with fatty infiltration or hepatocellular disease. Please correlate clinically. No focal hepatic mass or intrahepatic biliary dilatation is seen. 2. Liver elastography: In the absence of other known clinical signs, measurements rule out compensated advanced chronic liver disease. If there are known clinical signs, further testing may be needed for confirmation. 3. The gallbladder is surgically absent. REFERENCE: Society of Radiologists in Ultrasound Liver Stiffness Thresholds (2020): LIVER STIFFNESS THRESHOLDS: *Liver Stiffness equal or less than 1.3 m/s: High probability of being normal. *Liver Stiffness less than 1.7 m/s: In the absence of other known clinical signs, rules out compensated advanced chronic liver disease. *Liver Stiffness 1.7-2.1 m/s: Suggestive of compensated advanced chronic liver disease but need further test for confirmation. *Liver Stiffness over 2.1 m/s: Rules in compensated advanced chronic liver disease. *Liver Stiffness over 2.4 m/s: Suggestive of clinically significant portal hypertension. QUALITY OF DATA SET: *IQR/Median value equal or less than 0.15 implies a quality data set. *IQR/Median value over 0.15 implies a poor quality data set. SIGNIFICANT CHANGE FROM PRIOR EXAM: Significant change if liver stiffness measurement is 10% or greater from prior exam. OTHER CONSIDERATIONS: The stage of liver fibrosis may be overestimated in the setting of acute hepatitis, liver inflammation, elevated liver function tests, hepatic vascular congestion, obstructive cholestasis, non-fasting state, and infiltrative diseases such as amyloidosis and lymphoma. In some patients with NAFLD, the liver stiffness thresholds for compensated advanced chronic liver disease may be lower. In causes other than viral hepatitis and NAFLD, liver stiffness thresholds are not well established.
== END 2023-05-26 09:10 | disposition home or self-care (01) ==
LOC: HO.US 09:09
PROVIDERS: PCP Internal Medicine; Visit Provider Physician Assistant Surgical
DX: E66.01 Morbid (severe) obesity due to excess calories (principal)
CPT/HCPCS: 76700; 76981

== ENCOUNTER 2023-05-26 09:47 | Emergency (ER) | payer MEDICAID, SELFPAY ==
--- NOTE | ~2023-05-26 | XR_ITS ---
EXAMINATION: XR CHEST CLINICAL INFORMATION: Chest pain. COMPARISON: 01/31/2023. TECHNIQUE: 2 views of the chest were obtained. FINDINGS: No significant abnormality is noted involving the heart, lungs, mediastinum, bony thorax or soft tissues. XR/XR chest 2V IMPRESSION: Normal chest PA and lateral.
--- NOTE | 2023-05-26 09:49 | ECG_ITS ---
Test Reason : CHEST PAIN Blood Pressure : / mmHG Vent. Rate : 073 BPM Atrial Rate : 073 BPM P-R Int : 138 ms QRS Dur : 080 ms QT Int : 368 ms P-R-T Axes : 034 022 004 degrees QTc Int : 405 ms Normal sinus rhythm Normal ECG When compared with ECG of 09-MAR-2023 11:03, No significant change was found Referred By: Generic ED Physician Electronically Signed By:Urbano Ackerman
[2023-05-26 10:09] VITALS: BP 138/84; PULSE 76; RESP 16; TEMP 36; O2SAT 99; BMI 45.4
[2023-05-26 10:50] LABS: COVID-19 Test Negative (Negative); IDNOW Serial# 08D9AD1C
[2023-05-26 10:54] LABS: IDNOW Serial# 152EDE1D; Influenza A Negative (Negative); Influenza B2 Negative (Negative)
[2023-05-26 14:15] VITALS: BP 129/73; PULSE 68; RESP 16; TEMP 36.6; O2SAT 98
[2023-05-26 14:31] LABS: Appearance Urine Clear; Color Urine Yellow; Glucose Urine UA Negative (Negative); Leukocyte Esterase Urine Negative (Negative); Nitrite Urine Negative (Negative); Specific Gravity - Urine 1.025 (1.005-1.025); Urine Blood Negative (Negative); Urine Ketones Trace mg/dL (Negative); Urine Protein Negative (Neg-Trace)
[2023-05-26 14:32] LABS: UPreg QC Valid YES; Urine Pregnancy NEGATIVE (NEGATIVE)
[2023-05-26 15:01] LABS: MANUAL DIFF FLAG NO
[2023-05-26 15:03] LABS: Basophils Percent Auto 0.4 % (0-2); Eosinophils Absolute Auto 0.2 X10*3/uL (0.0-0.4); Eosinophils Percent Auto 2.2 % (0-4); Hematocrit 38.7 % (37.0-47.0); Hemoglobin 12.5 g/dl (12.0-16.0); Imm Gran Abs Auto 0.01 X10*3/uL (0.00-0.03); Imm Gran Pct Auto 0.1 % (0.0-0.4); Lymphocytes Absolute Auto 3.1 X10*3/uL (1.2-4.9); Lymphocytes Percent Auto 39.2 % (20-40); Mean Corpuscular HGB Conc 32.3 g/dl (31.0-35.0); Mean Corpuscular Hemoglobin 26.7 pg (27.0-33.0); Mean Corpuscular Volume 82.5 fL (80.0-98.0); Mean Platelet Volume 10.5 fL (9.4-12.3); Monocytes Absolute Auto 0.7 X10*3/uL (0.1-1.2); Monocytes Percent Auto 8.2 % (2-11); Neutrophils Percent Auto 49.9 % (45-73); Platelet Count 259 X10*3/uL (160-400); Red Blood Count 4.69 X10*6/uL (4.20-5.50); Red Cell Distribution Width 14.8 % (11.0-16.0)
[2023-05-26 15:21] LABS: Alanine Aminotransferase 28 U/L (0-31); Albumin Level 4.2 g/dL (3.5-5.0); Alkaline Phosphatase 66 U/L (39-117); Anion Gap 10 (12-20); Aspartate Amino Transferase 19 U/L (5-31); Bilirubin Direct 0.4 mg/dL (0.0-0.5); Bilirubin Total 1.2 mg/dL (0.0-1.0); Blood Urea Nitrogen 8 mg/dL (9-16); Calcium 9.4 mg/dL (8.4-10.2); Carbon Dioxide 25 mmol/L (22-29); Chloride 111 mmol/L (96-108); Creatinine Clr Calc Pharmacy 107.9; Estimated Glomerular Filt Rate > 60; Glucose Random 87 mg/dL (60-115); Lipase 18 U/L (8-78); Magnesium 2.1 mg/dL (1.6-2.6); Potassium 3.7 mmol/L (3.3-5.1); Sodium 142 mmol/L (135-145)
[2023-05-26 15:30] LABS: Troponin-I High Sensitivity < 2.7 ng/L (<3.5-17.0)
--- NOTE | 2023-05-26 15:53 | ED_ITS ---
HPI - General Adult General Chief complaint: General Medical Stated complaint: headache/ chest pain Time Seen by Provider: 05/26/23 12:28 Source: patient and RN notes reviewed Mode of arrival: ambulatory Limitations: no limitations History of Present Illness HPI narrative: This is a 28-year-old female, with a history of fibromyalgia, presenting to the emergency department with complaints of diffuse body aches, headache, nausea, vomiting and diarrhea. She also has a slight cough. No chest pain or shortness of breath. Patient denies any fevers, chills, dizziness, lightheadedness, abdominal pain, bloody or black stool. Denies any sick contacts. No nasal congestion or sore throat. She has been able to eat drink however reports decreased appetite. No other complaints or concerns at this time. MD complaint: body aches Relieving factors: none Exacerbating factors: none Associated symptoms: denies other symptoms Treatments prior to arrival: none Related Data Home Medications Medication Instructions Recorded Confirmed acetaminophen 650 mg 650 mg PO Q8H PRN mild pain 12/23/22 05/16/23 tablet,extended release albuterol sulfate 90 mcg/actuation 2 puff inhalation Q4-6H PRN 12/23/22 05/16/23 aerosol inhaler (Ventolin HFA) Previous Rx's Medication Instructions Recorded Enbrel SureClick 50 mg/mL (1 mL) 50 mg subcut QWEEK #4 mL 02/25/23 subcutaneous pen injector (etanercept) ketorolac 10 mg tablet 10 mg PO TID PRN pain 5 days #15 03/09/23 tabs acetaminophen 325 mg tablet 650 mg (2 x 325 mg) PO QID PRN 05/26/23 (Tylenol) pain #30 tabs ibuprofen 600 mg tablet 600 mg PO Q6H PRN pain #30 tabs 05/26/23 Allergies Allergy/AdvReac Type Severity Reaction Status Date / Time No Known Allergies Allergy Verified 05/26/23 10:13 Review of Systems 2 Review of Systems: Yes all other systems are reviewed and are negative Constitutional: Constitutional: Reports as per [facility] Past Medical History Medical History Anti-cardiolipin antibody positive Rash and other nonspecific skin eruption Hiatal hernia Pulmonary nodules Early stage of Obesity, morbid, BMI 40.0-49.9 Missed menses COVID-19 Asthma Rheumatoid arthritis Abnormal laboratory test Numbness in both hands Polyarthritis Myofascial pain syndrome Surgical History Hx of cholecystectomy H/O breast biopsy Hx of section H/O shoulder surgery Family History Family History Maternal Grandmother Diabetes Father HTN (hypertension) Mother HTN (hypertension) Maternal Aunt Colon cancer Social History Social History Alcohol intake: never Patient Tobacco Use Status: Former Tobacco user Tobacco use type: Cigarette Advance Directives: No Advance Directives Information Provided: No Gender identity: Female Physical Exam ED Vital Signs: Vital Signs - 24 hr 05/26/23 10:09 05/26/23 14:15 Temperature 96.8 F 98 F Pulse Rate 76 68 Respiratory Rate 16 16 Blood Pressure 138/84 129/73 Pulse Oximetry 99 98 Oxygen Delivery Method Room Air Room Air BMI result Body Mass Index 45.4 Const General: cooperative, comfortable and no acute distress Orientation/consciousness: patient oriented x3 Limitations: no limitations HENMT Head: Yes normal to inspection, Yes normocephalic and Yes atraumatic Ears: hearing grossly normal bilaterally and TM's normal bilaterally General nose exam: Normal external nose present Face and sinus: Yes normal facial exam Mouth: Normal oral and palatal mucosa present, oropharynx normal and moist mucous membranes Throat: Yes posterior oropharynx normal, Yes tonsils normal and Yes uvula midline Eyes General: appearance normal, both eyes and all related structures Eyelids: Yes eyelids normal Conjunctivae: conjunctivae normal Sclerae: sclerae normal Pupils: Equal, round and reactive pupils present EOM: EOMs intact bilaterally Neck Neck: Yes normal visual inspection, Yes full ROM and Yes no lymphadenopathy Lymphatic: no lymphadenopathy noted Chest Chest palpation & inspection: normal inspection of the chest Resp Effort & Inspection: normal respiratory effort and able to speak in complete sentences Auscultation: clear to auscultation bilaterally, no crackles, no rales, no rhonchi and no wheezes Cardio Rate: regular rate Rhythm: regular rhythm Heart sounds: S1 normal heart sound present and S2 normal heart sound present GI Other: Abdomen is soft, nontender, nondistended. Normoactive bowel sounds present in all 4 quadrants Inspection: Yes normal to inspection Skin General skin exam: no rashes or lesions noted Trauma: no lacerations or abrasions Wounds: no wounds Neuro General: patient oriented x3 and moves all extremities Cranial nerves: Yes Equal, round and reactive pupils present Extrem General: Yes normal to inspection Right upper extremity: normal to inspection Left upper extremity: normal to inspection Right lower extremity: normal to inspection Left lower extremity: normal to inspection Course Reevaluation(s) Reevaluation #1: Labs without any acute abnormalities seen, discussed this with patient, UA does not appear to be infected, viral swabs negative, chest x-ray without any signs of pneumonia. EKG normal. Symptoms may be attributed to a virus or exacerbation of rheumatoid arthritis/fibromyalgia. Advised patient to rest, alternate between ibuprofen and Tylenol, it is return if she develops any new or worsening symptoms. Patient understands and agrees with plan. Patient stable for discharge Medications Administered Discontinued Medications Generic Name Dose Route Start Last Admin Trade Name Freq PRN Reason Stop Dose Admin Ondansetron HCl 4 mg 05/26/23 13:59 05/26/23 14:44 Ondansetron Odt 4 Mg Tab.Rapdis TRANSLINGU 05/26/23 14:00 Not Given ONCE ONE Medical Decision Making Medical Decision Making [facility] Narrative: This is a 28-year-old female, with a history of fibromyalgia and rheumatoid arthritis, presenting to the emergency department with complaints of headache, joint pain, vomiting and diarrhea x4 days. She also has a slight cough. On arrival, vital signs within normal limits, she is nontoxic appearing speaking in full sentences. Differential diagnoses include COVID, flu, viral syndrome, electrolyte derangement, gastritis, gastroenteritis. Less likely ACS. Abdomen is soft, nontender, nondistended, lungs are clear to auscultation bilaterally. Plan: Labs, chest x-ray viral syndrome, urinalysis Differential Diagnosis Differential Diagnoses: The differential diagnosis associated with the presentation includes See above Lab Data [facility] Lab Attestation statement: I reviewed the patient's lab results. No leukocytosis, stable H&H, creatinine within normal limits, no evidence of BLANQUITA, total bili 1.2, typical of her to have this elevation. Negative troponin, urinalysis without any evidence of UTI, U preg negative negative COVID, flu 05/26/23 14:55 05/26/23 14:55 Labs: Lab Results 05/26/23 05/26/23 05/26/23 Range/Units 10:23 14:20 14:55 WBC 8.0 (4.8-10.8) X10*3/uL RBC 4.69 (4.20-5.50) X10*6/uL Hgb 12.5 (12.0-16.0) g/dl Hct 38.7 (37.0-47.0) % MCV 82.5 (80.0-98.0) fL MCH 26.7 L (27.0-33.0) pg MCHC 32.3 (31.0-35.0) g/dl RDW 14.8 (11.0-16.0) % Plt Count 259 (160-400) X10*3/uL MPV 10.5 (9.4-12.3) fL Immature Gran % (Auto) 0.1 (0.0-0.4) % Neut % (Auto) 49.9 (45-73) % Lymph % (Auto) 39.2 (20-40) % Rooks % (Auto) 8.2 (2-11) % Eos % (Auto) 2.2 (0-4) % Baso % (Auto) 0.4 (0-2) % Lymph # (Auto) 3.1 (1.2-4.9) X10*3/uL Rooks # (Auto) 0.7 (0.1-1.2) X10*3/uL Eos # (Auto) 0.2 (0.0-0.4) X10*3/uL Baso # (Auto) 0.0 (0.0-0.2) X10*3/uL Abs Immat Gran (auto) 0.01 (0.00-0.03) X10*3/uL Absolute Neuts (auto) 4.0 (2.0-8.3) x10*3/uL Absolute Nucleated RBC 0.000 (0.0-0.012) X10*3/uL Nucleated RBC % (auto) 0.0 (0.0-0.2) /100WBC Sodium 142 (135-145) mmol/L Potassium 3.7 (3.3-5.1) mmol/L Chloride 111 H (96-108) mmol/L Carbon Dioxide 25 (22-29) mmol/L Anion Gap 10 L (12-20) BUN 8 L (9-16) mg/dL Creatinine 0.87 (0.5-1.4) mg/dL Estim Creat Clear Calc 107.9 Estimated GFR > 60 Random Glucose 87 (60-115) mg/dL Calcium 9.4 (8.4-10.2) mg/dL Magnesium 2.1 (1.6-2.6) mg/dL Total Bilirubin 1.2 H (0.0-1.0) mg/dL Direct Bilirubin 0.4 (0.0-0.5) mg/dL AST 19 (5-31) U/L ALT 28 (0-31) U/L Alkaline Phosphatase 66 (39-117) U/L Troponin I High Sens < 2.7 (<3.5-17.0) ng/L Total Protein 7.0 (6.5-8.0) g/dL Albumin 4.2 (3.5-5.0) g/dL Lipase 18 (8-78) U/L Urine Color Yellow Urine Appearance Clear Urine pH 6.0 (5.0-9.0) Ur Specific [place] 1.025 (1.005-1.025) Urine Protein Negative (Neg-Trace) mg/dL Urine Glucose (UA) Negative (Negative) mg/dL Urine Ketones Trace (Negative) mg/dL Urine Blood Negative (Negative) Urine Nitrite Negative (Negative) Ur Leukocyte Esterase Negative (Negative) Urine Test NEGATIVE (NEGATIVE) COVID-19 (KAYLA) Negative (Negative) COVID-19 Clin Com See Note Influenza Type A (VASILE) Negative (Negative) Influenza Type B (VASILE) Negative (Negative) Influenza A & B Note See Note Independent Interpretation I performed an independent interpretation of an: EKG Interpretation: EKG normal sinus rhythm at a ventricular rate of 73 beats per minute, WA interval 138, QTC 405, no ST elevation or depression Radiology Impression Discussion of test interpretation with radiology: I have reviewed the radiologist's reading. Radiologist Impression: EXAMINATION: XR CHEST CLINICAL INFORMATION: Chest pain. COMPARISON: 01/31/2023. TECHNIQUE: 2 views of the chest were obtained. FINDINGS: No significant abnormality is noted involving the heart, lungs, mediastinum, bony thorax or soft tissues. XR/XR chest 2V IMPRESSION: Normal chest PA and lateral. Dictated By: Alberto Mcgrath Discharge Plan Discharge Clinical Impression: Polyarthralgia, Acute viral syndrome Patient Disposition: Home, Self-Care Instructions: Viral Syndrome (ED), Arthralgia (ED) Additional Instructions: You likely have a virus causing you to have your symptoms. You tested negative for COVID, RSV and flu. You are not . Her blood work was reassuring. Your chest x-ray and EKG was normal. Please drink plenty of fluids get plenty of rest. Follow-up with your certified emergency vehicle technician, and primary care physician regarding this visit. If any new or worsening symptoms occur including but not limited to chest pain, shortness of breath, please return for re-evaluation. Es probable que tenga un virus que le provoque los s?ntomas. Pérez negativo en las pruebas de COVID, RSV y gripe. No est?s embarazada. Russo an?lisis de gage fue tranquilizador. Russo radiograf?a de t?rax y russo electrocardiograma fueron normales. Jocelyne muchos l?quidos y descanse mucho. Sadie un seguimiento con russo reumat?logo y m?dico de atenci?n primaria con respecto a esta visita. Si se presenta alg?n s?ntoma nuevo o que empeora, incluidos, entre otros, dolor en el pecho y dificultad para respirar, regrese para jeanette nueva evaluaci?n. Prescriptions: New acetaminophen [Tylenol] 325 mg tablet 650 mg PO QID PRN (Reason: pain) Qty: 30 0RF ibuprofen 600 mg tablet 600 mg PO Q6H PRN (Reason: pain) Qty: 30 0RF No Action Enbrel SureClick 50 mg/mL (1 mL) pen injector 50 mg subcut QWEEK Qty: 4 2RF ketorolac 10 mg tablet 10 mg PO TID PRN (Reason: pain) 5 Days Qty: 15 0RF acetaminophen 650 mg tablet extended release 650 mg PO Q8H PRN (Reason: mild pain) albuterol sulfate [Ventolin HFA] 90 mcg/actuation HFA aerosol inhaler 2 puff inhalation Q4-6H PRN Interventions: ED Discharge Assessment Last Done: 05/26/23 16:09 Discharge Date/Time: 05/26/23 16:10
== END 2023-05-26 16:10 | disposition home or self-care (01) ==
PROVIDERS: Physician Assistant Medical; Emergency Provider Emergency Medicine; PCP Internal Medicine
DX: R07.89 Other chest pain (principal); R51.9 Headache, unspecified; R11.2 Nausea with vomiting, unspecified; R05.9 Cough, unspecified; Z11.52 Encounter for screening for COVID-19; Z79.899 Other long term (current) drug therapy
CPT/HCPCS: 36415; 71046; 80048; 80076; 81003; 81025; 83690; 83735; 84484; 85025; 87502; 87635; 93005; 99283; 99284

== ENCOUNTER → 2023-05-26 09:49 | Outpatient (BNV) | payer MEDICAID, SELFPAY | PROVIDERS: Emergency Provider Emergency Medicine; PCP Internal Medicine; Visit Provider Internal Medicine Cardiovascular Disease | DX: R07.9 Chest pain, unspecified (principal) | CPT/HCPCS: 93010 ==

== ENCOUNTER 2023-06-11 09:24 | Outpatient (AMB) | payer OTHER, SELFPAY ==
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
== END 2023-06-11 10:00 | disposition home or self-care (01) ==
PROVIDERS: PCP Internal Medicine; Visit Provider Counselor Mental Health
DX: F33.40 Major depressive disorder, recurrent, in remission, unspecified (principal); F41.9 Anxiety disorder, unspecified
CPT/HCPCS: 90837

== ENCOUNTER → 2023-06-11 09:24 | Outpatient (BNVA) | payer MEDICAID, SELFPAY | PROVIDERS: PCP Internal Medicine; Visit Provider Counselor Mental Health ==

== ENCOUNTER 2023-06-13 09:32 | Outpatient (AMB) | payer MEDICAID, SELFPAY ==
--- NOTE | 2023-06-13 09:37 | A.OFFVIS_ITS ---
Intake VS Expanded 06/13/23 09:46 BP 134/65 Blood Pressure Location Rt brachial Blood Pressure Position Sitting Pulse 61 Pulse Source Pulse Oximeter Temp 97.1 F Temperature Source Temporal Artery Scan Pulse Oximetry 98 Oxygen Delivery Method Room Air Height 5 ft 1 in Weight 228 lb BMI 43.1 Body Fat % 48.0 Body Fat Mass 109.4 Fat Free Mass 118.6 Visceral Fat Rating 13.0 Body Water % 37.4 Body Water Mass 85.4 Muscle Mass/Score 112.6 Basal Metabolic Rate/Score 1,718 Intake Visit Reasons: (OV) F/U SWL Executive Staff Assistant Required: Yes Executive Staff Assistant Name: office cmi Allergies No Known Allergies Allergy (Verified 06/13/23 09:43) Medication List - Last Reconciled 06/13/23 by [place] Villalta acetaminophen (Tylenol) 650 mg (2 x 325 mg) PO QID PRN albuterol sulfate 90 mcg/actuation (Ventolin HFA) 2 puffs inhalation Q4-6H PRN ibuprofen 600 mg PO Q6H PRN tocilizumab (Actemra ACTPen) 162 mg (0.9 mL) subcut QWEEK HPI HPI Comments History of Present Illness Details The patient is a pleasant 27 year old female who returns to the clinic for pre-operative surgical weight loss management. They were last seen in the office on 05/16/23, recorded weight at that time was 235.8 pounds, with a BMI of 44.5. Today's weight is 228 pounds and BMI is 43.1. There has been a weight loss of 22.2 pounds since initiating the surgical weight loss program on 10/18/2022 with a total body weight loss of 8.8 %. Pre op work up completed as follows: SWL classes:? 11/19 BH appts: cleared-06/11/23? ? RD appts: 06/13/23 Labs: 10/22/22-low A, D, B12:297 H. pylori: 10/18/22-neg CXR: 10/22/22-nad EK10/22/22-normal ABD U/S: 05/26/23-fatty liver UGI: 10/23/22-mod HH, GERD The patient reports she has been less anxious over the last month or so and notices a big difference from going to the gym. Using Premier protein and not pure protein, 1 scoop per shake. She did not communicate this by text. recommended current meal plan includes: 2 Pure protein shakes, (1 scoop in 8 oz low fat unsweetened almond milk each) First shake at 10am-12pm Second shake at? 1pm-3pm 1 protein bar (Zone Perfect bars) at 4pm -6pm. Dinner at 6pm (7 forks of protein and 7 forks of salad/vegetables). 48 oz water daily Current exercise plan includes: PF - treadmill daily, 400 calories PFSH Medical History Anti-cardiolipin antibody positive Rash and other nonspecific skin eruption Hiatal hernia Pulmonary nodules Early stage of Obesity, morbid, BMI 40.0-49.9 Missed menses COVID-19 Asthma Rheumatoid arthritis Abnormal laboratory test Numbness in both hands Polyarthritis Myofascial pain syndrome Surgical History Hx of cholecystectomy H/O breast biopsy Hx of section H/O shoulder surgery Family History Maternal Grandmother Diabetes Father HTN (hypertension) Mother HTN (hypertension) Maternal Aunt Colon cancer Social History Alcohol intake: never Patient Tobacco Use Status: Former Tobacco user Tobacco use type: Cigarette Gender identity: Female Physical Exam Const General: healthy appearing and no acute distress Resp Effort & Inspection: normal respiratory effort Auscultation: clear to auscultation bilaterally Cardio Rate: regular rate Rhythm: regular rhythm GI Auscultation: normal bowel sounds Extrem General: Yes normal to inspection Assessment & Plan Assessment & Plan (1) Morbid obesity: Code(s): E66.01 - Morbid (severe) obesity due to excess calories Plan: Patient has made good progress. She is now dedicated to the gym. She was encouraged to continue her exercise routine of 400 calories 7 days a week. She will continue her meal plan as listed below: 2 Premier Protein shakes, (1 scoop in 8 oz low fat unsweetened almond milk each) First shake at 10am-12pm Second shake at? 1pm-3pm 1 protein bar (Zone Perfect bars) at 4pm-6pm. Dinner at 6pm (7 forks of protein and 7 forks of salad/vegetables). She was reminded of her appointment with Gloria, today at 1. We will refer her to Dr. Rios for continued preoperative management. Coding Level of Care Code Est Pt Level 3 (98780) Diagnoses Morbid obesity E66.01
[2023-06-13 09:46] VITALS: BP 134/65; PULSE 61; TEMP 36.2; O2SAT 98; BMI 43.1
== END 2023-06-13 10:09 | disposition home or self-care (01) ==
PROVIDERS: PCP Internal Medicine; Visit Provider Physician Assistant Surgical
DX: E66.01 Morbid (severe) obesity due to excess calories (principal)
CPT/HCPCS: 99213

== ENCOUNTER → 2023-06-13 09:32 | Outpatient (BNVA) | payer MEDICAID, SELFPAY | PROVIDERS: PCP Internal Medicine; Visit Provider Physician Assistant Surgical | DX: E66.01 Morbid (severe) obesity due to excess calories (principal); Z68.41 Body mass index [BMI] 40.0-44.9, adult | CPT/HCPCS: 97802; 99212 ==

== ENCOUNTER 2023-06-13 13:07 | Outpatient (AMB) | payer MEDICAID, SELFPAY ==
--- NOTE | 2023-06-13 13:03 | MHC.AMNUTRGE ---
Intake Intake Visit Reasons: (TV) Initial nutrition SWL Hvac Controls Technician Required: Yes Hvac Controls Technician Name: jeanine [id number] Information Interpreted: non-clinical & clinical Allergies No Known Allergies Allergy (Verified 06/13/23 09:43) HPI Nutrition Presentation Details pt started program October 2022, was seen twice in October, then not seen again until Mar. She has never had a nutrition appointment with us. Reason for consult elevated BMI Diet Assmnt Details pt states she is going great. Pt just met with Juan Carlos Prince this morning, pt did not want to r/s nutrition appt today. See PA's note. pt reports having no questions or concerns today. she completed her online classes. information was reviewed today. Dietary counseling reduction Diagnosis Nutrition problem #1 overweight/obesity As related to (etiology) #1 excess energy intake and physical inactivity As evidenced by (sign/symptom) #1 high BMI Monitoring/Goals Nutrition problem monitoring total energy intake, level of knowledge/skill, total PRO intake, total CHO intake and weight Outcome progress progressing Learning/Education Readiness to learn good Stages of change action Educational materials provided Yes Most Recent Diabetes Results: Creatinine 0.87 mg/dL (0.5-1.4) 05/26/23 Blood Urea Nitrogen 8 mg/dL (9-16) L 05/26/23 Sodium 142 mmol/L (135-145) 05/26/23 Potassium 3.7 mmol/L (3.3-5.1) 05/26/23 Chloride 111 mmol/L (96-108) H 05/26/23 Carbon Dioxide 25 mmol/L (22-29) 05/26/23 Calcium 9.4 mg/dL (8.4-10.2) 05/26/23 AST 19 U/L (5-31) 05/26/23 ALT 28 U/L (0-31) 05/26/23 Total Protein 7.0 g/dL (6.5-8.0) 05/26/23 Albumin 4.2 g/dL (3.5-5.0) 05/26/23 [facility] Medical History Anti-cardiolipin antibody positive Rash and other nonspecific skin eruption Hiatal hernia Pulmonary nodules Early stage of Obesity, morbid, BMI 40.0-49.9 Missed menses COVID-19 Asthma Rheumatoid arthritis Abnormal laboratory test Numbness in both hands Polyarthritis Myofascial pain syndrome Surgical History Hx of cholecystectomy H/O breast biopsy Hx of section H/O shoulder surgery Family History Maternal Grandmother Diabetes Father HTN (hypertension) Mother HTN (hypertension) Maternal Aunt Colon cancer Social History Alcohol intake: never Patient Tobacco Use Status: Former Tobacco user Tobacco use type: Cigarette Gender identity: Female Assessment & Plan Assessment & Plan (1) Morbid obesity: Code(s): E66.01 - Morbid (severe) obesity due to excess calories Plan pt is cleared from a nutrition standpoint for bariatric surgery. Telehealth Telehealth Location of provider rendering services: other (home address, [facility] ) Location of patient: address on file Patient Identification confirmed using: Name, : Yes Telehealth method: voice only Patient verbally consented to treatment: Yes Patient verbally consented to billing insurance company: Yes Patient informed of any privacy concerns related to visit: Yes Minutes spent on Phone/Video with Pt.: 15 Coding Level of Care Code Nutr Indiv Intake (78868) Diagnoses Morbid obesity E66.01 Time Spent (min) 15
== END 2023-06-13 13:17 | disposition home or self-care (01) ==
LOC: HO.HBS 13:08
PROVIDERS: PCP Internal Medicine; Visit Provider Dietitian, Registered
DX: E66.01 Morbid (severe) obesity due to excess calories (principal)

== ENCOUNTER 2023-06-23 15:55 | Emergency (ER) | payer MEDICAID, SELFPAY ==
--- NOTE | ~2023-06-23 | CT_ITS ---
EXAMINATION: CT brain and CT cervical spine without contrast. CLINICAL INDICATION: Trauma, fall. TECHNIQUE: 5 mm thin axial and reformatted 2 mm thin sagittal and coronal images of brain were obtained. Subsequently axial 3 mm thin and reformatted 2 mm thin sagittal and coronal images of cervical spine were obtained. DLP [id number]. This CT examination was performed using dose optimization technique as appropriate, variously including the following: Automated exposure control Adjustment of MA and/or KV according to patient size(this includes techniques or standardized protocols for targeted exams where dose is matched to indication/reason for exam; extremities or head. Use of iterative reconstruction techniques. FINDINGS: Brain: There is no acute intra-axial, extra-axial bleed, masses or midline shift. There is no acute infarction evolution. There is no edema. Asher to white matter differentiation is maintained normal. The lateral ventricles are symmetrical in size and configuration without enlargement. Bone windows reveal no calvarial abnormality. There is no scalp soft tissue abnormality. Bilateral paranasal sinuses and mastoid air cells are well-aerated. Cervical spine: On sagittal reconstructed images there is mild straightening of cervical lordosis. The vertebral heights, alignment and disc heights are normal. There is no visible acute fracture, dislocation or subluxation seen. The craniovertebral junction and the C1-C2 alignment is normal. There is no visible acute fracture, dislocation or subluxation seen. The prevertebral and paravertebral soft tissues are normal. The airway is widely patent. Visualized bilateral parotid, submandibular glands and thyroid lobes are symmetrical. The airway is widely patent. Cystic changes and scarring seen in left lung apex. CT/CT cervical spine wo IV con IMPRESSION: 1. No acute intracranial process seen. 2. There is no acute fracture, dislocation or subluxation in cervical spine. There is mild straightening of cervical lordosis likely spasm.
[2023-06-23 16:05] VITALS: BP 121/85; PULSE 63; RESP 16; TEMP 36.3; O2SAT 97; BMI 43.6
--- NOTE | 2023-06-23 16:27 | ECG_ITS ---
Test Reason : head pain Blood Pressure : / mmHG Vent. Rate : 069 BPM Atrial Rate : 069 BPM P-R Int : 142 ms QRS Dur : 088 ms QT Int : 380 ms P-R-T Axes : 041 024 010 degrees QTc Int : 407 ms Sinus rhythm with marked sinus arrhythmia Nonspecific T wave abnormality Abnormal ECG When compared with ECG of 26-MAY-2023 09:59, T wave inversion now evident in Anterior leads Referred By: Pj Arizmendi Electronically Signed By:JESUS GREENWOOD MD
--- NOTE | 2023-06-23 16:29 | ED.GENADULT ---
HPI - General Adult General Chief complaint: Head Injury Stated complaint: fell dizzy History of Present Illness HPI narrative: Left without completion of treatment Related Data Home Medications Medication Instructions Recorded Confirmed albuterol sulfate 90 mcg/actuation 2 puff inhalation Q4-6H PRN 12/23/22 06/13/23 aerosol inhaler (Ventolin HFA) Previous Rx's Medication Instructions Recorded acetaminophen 325 mg tablet 650 mg (2 x 325 mg) PO QID PRN 05/26/23 (Tylenol) pain #30 tabs ibuprofen 600 mg tablet 600 mg PO Q6H PRN pain #30 tabs 05/26/23 tocilizumab 162 mg/0.9 mL 162 mg (0.9 mL) subcut QWEEK #3.6 06/09/23 subcutaneous pen injector (Actemra mL ACTPen) Allergies Allergy/AdvReac Type Severity Reaction Status Date / Time No Known Allergies Allergy Verified 06/13/23 09:43 [facility] Past Medical History Medical History Anti-cardiolipin antibody positive Rash and other nonspecific skin eruption Hiatal hernia Pulmonary nodules Early stage of Obesity, morbid, BMI 40.0-49.9 Missed menses COVID-19 Asthma Rheumatoid arthritis Abnormal laboratory test Numbness in both hands Polyarthritis Myofascial pain syndrome Surgical History Hx of cholecystectomy H/O breast biopsy Hx of section H/O shoulder surgery Family History Family History Maternal Grandmother Diabetes Father HTN (hypertension) Mother HTN (hypertension) Maternal Aunt Colon cancer Social History Social History Alcohol intake: never Patient Tobacco Use Status: Former Tobacco user Tobacco use type: Cigarette Advance Directives: No Advance Directives Information Provided: No Gender identity: Female Physical Exam ED Vital Signs: Vital Signs - 24 hr 06/23/23 16:05 Temperature 97.4 F Pulse Rate 63 Respiratory Rate 16 Blood Pressure 121/85 Pulse Oximetry 97 Oxygen Delivery Method Room Air BMI result Body Mass Index 43.6 Course Course Course Narrative: RME: 28 old female presents to ED for headache for 1 week and then yesterday she felt dizzy and hit her head on the floor. Patient denies having chest pain shortness of breath before falling. Patient does states dizziness before falling. Patient denies any chest pain, shortness of breath, nausea, vomiting, slurred speech, facial droop, or paralysis of extremities. Labs EKG head CT ordered Medical Decision Making Lab Data Labs: Lab Results 06/23/23 Range/Units 17:50 PT 11.9 (11.1-13.3) SEC INR 1.0 (0.9-1.1) APTT 34.1 (26.0-36.8) SEC Troponin I High Sens 2.7 (<3.5-17.0) ng/L Beta HCG, Quant < 2 mIU/mL Discharge Plan Discharge Clinical Impression: Diagnosis unknown Patient Disposition: Left W/O Completing Treatment Prescriptions: No Action Actemra ACTPen 162 mg/0.9 mL pen injector 162 mg subcut QWEEK Qty: 3.6 1RF acetaminophen [Tylenol] 325 mg tablet 650 mg PO QID PRN (Reason: pain) Qty: 30 0RF ibuprofen 600 mg tablet 600 mg PO Q6H PRN (Reason: pain) Qty: 30 0RF albuterol sulfate [Ventolin HFA] 90 mcg/actuation HFA aerosol inhaler 2 puff inhalation Q4-6H PRN Discharge Date/Time: 06/24/23 00:04
[2023-06-23 18:04] LABS: Prothrombin Time 11.9 SEC (11.1-13.3)
[2023-06-23 18:07] LABS: Partial Thromboplastin Time 34.1 SEC (26.0-36.8)
[2023-06-23 18:17] LABS: HCG Quantitative < 2 mIU/mL; Troponin-I High Sensitivity 2.7 ng/L (<3.5-17.0)
== END 2023-06-24 00:04 | disposition left against medical advice (07) ==
PROVIDERS: Physician Assistant; Emergency Provider Emergency Medicine; PCP Internal Medicine
DX: R42 Dizziness and giddiness (principal); R51.9 Headache, unspecified
CPT/HCPCS: 36415; 70450; 72125; 84484; 84702; 85610; 85730; 93005; 99283; 99284

== ENCOUNTER → 2023-06-23 16:27 | Outpatient (BNV) | payer MEDICAID, SELFPAY | PROVIDERS: Emergency Provider Emergency Medicine; PCP Internal Medicine; Visit Provider Internal Medicine Cardiovascular Disease | DX: I49.9 Cardiac arrhythmia, unspecified (principal) | CPT/HCPCS: 93010 ==

== ENCOUNTER 2023-06-24 15:13 | Observation (INO) | payer MEDICAID, SELFPAY ==
--- NOTE | ~2023-06-24 | XR_ITS ---
EXAMINATION: XR CHEST CLINICAL INFORMATION: Chest pain. COMPARISON: Chest radiograph dated 05/26/2023. TECHNIQUE: Frontal view of the chest was obtained. FINDINGS: The heart is normal in size. The lungs are clear. There is no pleural effusion or pneumothorax. No acute osseous abnormality. XR/XR chest 1V IMPRESSION: No acute cardiopulmonary disease.
[2023-06-24 15:53] VITALS: BP 127/81; PULSE 62; RESP 16; TEMP 36.1; O2SAT 100; BMI 42.0
--- NOTE | 2023-06-24 16:00 | ECG_ITS ---
Test Reason : DIZZINESS Blood Pressure : / mmHG Vent. Rate : 066 BPM Atrial Rate : 066 BPM P-R Int : 134 ms QRS Dur : 078 ms QT Int : 392 ms P-R-T Axes : 043 005 001 degrees QTc Int : 410 ms Normal sinus rhythm Nonspecific T wave abnormality Abnormal ECG When compared with ECG of 23-JUN-2023 17:56, No significant change was found Referred By: Pj Arizmendi Electronically Signed By:JESUS GREENWOOD MD
--- NOTE | 2023-06-24 16:01 | ED_ITS ---
HPI - General Adult General Chief complaint: Fall Stated complaint: doctor told patient to come head pain Time Seen by Provider: 06/24/23 17:33 Source: patient Mode of arrival: ambulatory Limitations: no limitations History of Present Illness HPI narrative: patient comes to the emergency room complaining of a syncopal episode 2 days ago. Patient states that she noted that she had a bit of chest pain that started prior to the syncopal episode, patient was walking around the store, patient had a sudden onset of lightheadedness and fell forward landing on her face. Patient states that she did not pass out completely. Patient was able to get up and continue walk-in. The next day, patient came to the emergency room. Labs and EKG were done. However, patient left before she was seen by a provider because the waiting time was too long. Today, patient's physician called the patient asking her to come back, since there were new EKG changes. Patient states that this time she has no lightheadedness or dizziness, states that she has very mild chest discomfort that has been present now for 48+ hours. Patient denies nausea vomiting or diarrhea, no recent viral infections. Related Data Home Medications Medication Instructions Recorded Confirmed albuterol sulfate 90 mcg/actuation 2 puff inhalation Q4-6H PRN 12/23/22 06/24/23 aerosol inhaler (Ventolin HFA) Wheezing etanercept 50 mg/mL (1 mL) 50 mg subcut QWEEK 06/24/23 06/24/23 subcutaneous pen injector (Enbrel SureClick) ibuprofen 600 mg tablet 600 mg PO Q6H PRN Pain 06/24/23 06/24/23 Previous Rx's Medication Instructions Recorded acetaminophen 325 mg tablet 650 mg (2 x 325 mg) PO QID PRN 05/26/23 (Tylenol) pain #30 tabs Allergies Allergy/AdvReac Type Severity Reaction Status Date / Time No Known Allergies Allergy Verified 06/13/23 09:43 Review of Systems 2 Review of Systems: Constitutional : No Weight loss, No Fever, No Chills, No Night Sweats, No Fatigue, No Malaise ENT/Mouth : No Hearing loss, No Ear Pain, No Nasal Congestion, No Sinus Pain, No Hoarseness, No sore throat, No Rhinorrhea, No Swallowing Difficulty Eyes: No Eye Pain, No Swelling, No Redness, No Foreign Body, No Discharge, No Vision Changes Cardiovascular : No Chest Pain, No SOB, No Dyspnea on Exertion, No Orthopnea, No Edema, No Palpitations Respiratory : No Cough, No Sputum, No Wheezing, No Smoke Exposure, No Dyspnea Gastrointestinal : No Nausea, No Vomiting, No Diarrhea, No Constipation, No abdominal Pain, No Hematochezia, No Melena Genitourinary : no irregular bleeding, No Dysuria, No Urinary Frequency, No Hematuria, No Urinary Incontinence, No Urgency, No Flank Pain, No Urinary Flow Changes, No Hesitancy Musculoskeletal : No joint pain, No Myalgias, No Joint Swelling Skin : No Skin Lesions, No rash Neuro : No Weakness, No Numbness, No Paresthesias, No Loss of Consciousness, Complaining of 1 episode of dizziness/ near syncopal episode, constant mild headache Psych : No Anxiety/Panic, No Depression, No SI/HI/AH/VH, No Social Issues, Heme/Lymph: No Bruising, No Bleeding,No Lymphadenopathy Endocrine : No Polyuria, No Polydipsia, No Temperature Intolerance [facility] Past Medical History Medical History (Updated 06/24/23 @ 19:54 by Young Williamson MD) Chest pain Anti-cardiolipin antibody positive Rash and other nonspecific skin eruption Hiatal hernia Pulmonary nodules Early stage of Obesity, morbid, BMI 40.0-49.9 Missed menses COVID-19 Asthma Rheumatoid arthritis Abnormal laboratory test Numbness in both hands Polyarthritis Myofascial pain syndrome Surgical History Hx of cholecystectomy H/O breast biopsy Hx of section H/O shoulder surgery Family History Family History Maternal Grandmother Diabetes Father HTN (hypertension) Mother HTN (hypertension) Maternal Aunt Colon cancer Social History Social History Alcohol intake: never Patient Tobacco Use Status: Former Tobacco user Tobacco use type: Cigarette Smoked in Last 30 Days: No Use of substances other than those prescribed or required for medical reasons: No Advance Directives: No Advance Directives Information Provided: No Patient : No Gender identity: Female Physical Exam ED Vital Signs: Vital Signs - 24 hr 06/24/23 15:53 06/24/23 17:14 06/24/23 19:20 Temperature 97 F 97.8 F 98.3 F Pulse Rate 62 62 57 Respiratory Rate 16 16 13 Blood Pressure 127/81 122/74 118/79 Pulse Oximetry 100 99 Oxygen Delivery Method Room Air Room Air BMI result Body Mass Index 42.0 Const Other: Appearance: Alert. Oriented X3. No acute distress. eating pizza Eyes: Pupils equal, round and reactive to light. ENT: Pharynx normal. Neck: Normal inspection. Neck supple. No lymph nodes noted. No crepitus CVS: Normal heart rate and rhythm. Pulses normal. Normal S1 and S2 Respiratory: No respiratory distress. Breath sounds normal. No Wheezing. No rales Abdomen: Soft and nontender. No rigidity. No distention. Skin: Skin warm and dry. Normal skin color. Normal skin turgor. Extremities: No lower extremity edema. No Lacerations. No Rash Neuro: Oriented X 3. No motor deficit. No sensory deficit. Moving all extremities. No slurred speech. CN 2 through 12 grossly intact Psych: calm, cooperative, normal affect Course Course Course Narrative: RME: 28 yold female presents to ED for evaluation for chest pain. Patient was seen yesterday for dizziness and fall and left before being evaluated. Repeat EKG and labs ordered. Medications Administered Generic Name Dose Route Start Last Admin Trade Name Freq PRN Reason Stop Dose Admin Enoxaparin Sodium 40 mg 06/24/23 20:00 06/24/23 20:04 Enoxaparin Sodium 40 Mg/0.4 Ml Syringe SUBCUT 40 mg Q24H MODE Administration Famotidine 20 mg 06/24/23 21:00 06/24/23 20:08 Famotidine 20 Mg Tablet PO 20 mg BEDTIME MODE Administration Sodium Chloride 3 ml 06/25/23 00:00 06/25/23 08:48 0.9 % Sodium Chloride Flush 3 Ml Syringe IVFLUSH Not Given QSHIFT MODE Discontinued Medications Generic Name Dose Route Start Last Admin Trade Name Freq PRN Reason Stop Dose Admin Aspirin 325 mg 06/24/23 19:11 06/24/23 20:04 Aspirin Enteric Coated 325 Mg Tablet.Dr PFEIFFER 06/24/23 19:12 325 mg ONCE ONE Administration Medical Decision Making Medical Decision Making [facility] Narrative: - my interpretation of labs: Normal hematology, chemistry, LFTs, hCG, troponin. - my interpretation EKG: Normal sinus rhythm, heart rate 66, no ST segment depression or elevation, new nonspecific T-waves inversions in V2 V3 and lead III - given patient's history, we will go ahead and order a D-dimer. Discussed with the patient that if positive she will need to get scaned - Wells criteria for pulmonary embolism 0 -D-dimer is negative., troponin 2 is due at 20:00 -I discussed the patient an EKG and labs with Dr. Godinez from Cardiology, recommendations, no heparin, admit for echocardiogram in the morning and Cardiology consult. -I discussed the patient with Dr Williamson from the medicine team, patient being admitted -patient agrees with plan Differential Diagnosis Differential Diagnoses: The differential diagnosis associated with the presentation includes ( pulmonary embolism, orthostatic hypotension, vertigo, ACS) Admission/Observation Consideration of admission/observation: Escalation of care including admission/observation considered Consult Healthcare Provider Management of the patient was discussed with: Hospitalist and Business Project Manager Lab Data MDM Lab Attestation statement: I reviewed the patient's lab results. 06/25/23 05:26 06/25/23 05:26 Labs: Lab Results 06/24/23 Range/Units 16:55 WBC 6.3 (4.8-10.8) X10*3/uL RBC 4.70 (4.20-5.50) X10*6/uL Hgb 12.7 (12.0-16.0) g/dl Hct 39.0 (37.0-47.0) % MCV 83.0 (80.0-98.0) fL MCH 27.0 (27.0-33.0) pg MCHC 32.6 (31.0-35.0) g/dl RDW 14.8 (11.0-16.0) % Plt Count 238 (160-400) X10*3/uL MPV 10.9 (9.4-12.3) fL Immature Gran % (Auto) 0.2 (0.0-0.4) % Neut % (Auto) 44.3 L (45-73) % Lymph % (Auto) 46.3 H (20-40) % Alfalfa % (Auto) 7.3 (2-11) % Eos % (Auto) 1.3 (0-4) % Baso % (Auto) 0.6 (0-2) % Lymph # (Auto) 2.9 (1.2-4.9) X10*3/uL Alfalfa # (Auto) 0.5 (0.1-1.2) X10*3/uL Eos # (Auto) 0.1 (0.0-0.4) X10*3/uL Baso # (Auto) 0.0 (0.0-0.2) X10*3/uL Abs Immat Gran (auto) 0.01 (0.00-0.03) X10*3/uL Absolute Neuts (auto) 2.8 (2.0-8.3) x10*3/uL Absolute Nucleated RBC 0.000 (0.0-0.012) X10*3/uL Nucleated RBC % (auto) 0.0 (0.0-0.2) /100WBC PT 11.8 (11.1-13.3) SEC INR 1.0 (0.9-1.1) APTT 33.9 (26.0-36.8) SEC D-Dimer High Sensitivty < 150 NG/ML Sodium 144 (135-145) mmol/L Potassium 3.7 (3.3-5.1) mmol/L Chloride 111 H (96-108) mmol/L Carbon Dioxide 25 (22-29) mmol/L Anion Gap 12 (12-20) BUN 8 L (9-16) mg/dL Creatinine 0.80 (0.5-1.4) mg/dL Estim Creat Clear Calc 116.5 Estimated GFR > 60 Random Glucose 91 (60-115) mg/dL Calcium 9.6 (8.4-10.2) mg/dL Total Bilirubin 1.4 H (0.0-1.0) mg/dL AST 22 (5-31) U/L ALT 27 (0-31) U/L Alkaline Phosphatase 72 (39-117) U/L Troponin I High Sens 3.4 (<3.5-17.0) ng/L Total Protein 7.0 (6.5-8.0) g/dL Albumin 4.4 (3.5-5.0) g/dL Beta HCG, Quant < 2 mIU/mL Independent Interpretation I performed an independent interpretation of an: EKG and Plain X-Ray (My interpretation of chest x-ray, no infiltrates or fracture ribs) Radiology Impression Discussion of test interpretation with radiology: I have reviewed the radiologist's reading. Radiologist Impression: FINDINGS: The heart is normal in size. The lungs are clear. There is no pleural effusion or pneumothorax. No acute osseous abnormality. XR/XR chest 1V IMPRESSION: No acute cardiopulmonary disease. Critical Care Time Critical Care Time Critical Care Time: Yes Total Critical Care Time: 60 Attestation: Admitted Discharge Plan Discharge Clinical Impression: Syncope, Abnormal ECG Patient Disposition: Admitted As Inpatient
[2023-06-24 17:06] LABS: MANUAL DIFF FLAG NO
[2023-06-24 17:07] LABS: Basophils Percent Auto 0.6 % (0-2); Eosinophils Absolute Auto 0.1 X10*3/uL (0.0-0.4); Eosinophils Percent Auto 1.3 % (0-4); Hemoglobin 12.7 g/dl (12.0-16.0); Imm Gran Abs Auto 0.01 X10*3/uL (0.00-0.03); Imm Gran Pct Auto 0.2 % (0.0-0.4); Lymphocytes Absolute Auto 2.9 X10*3/uL (1.2-4.9); Lymphocytes Percent Auto 46.3 % (20-40); Mean Corpuscular HGB Conc 32.6 g/dl (31.0-35.0); Mean Platelet Volume 10.9 fL (9.4-12.3); Monocytes Absolute Auto 0.5 X10*3/uL (0.1-1.2); Monocytes Percent Auto 7.3 % (2-11); Neutrophils Absolute Auto 2.8 x10*3/uL (2.0-8.3); Neutrophils Percent Auto 44.3 % (45-73); Platelet Count 238 X10*3/uL (160-400); Red Cell Distribution Width 14.8 % (11.0-16.0); White Blood Count 6.3 X10*3/uL (4.8-10.8)
[2023-06-24 17:14] VITALS: BP 122/74; PULSE 62; RESP 16; TEMP 36.6
[2023-06-24 17:18] LABS: Prothrombin Time 11.8 SEC (11.1-13.3)
[2023-06-24 17:21] LABS: Partial Thromboplastin Time 33.9 SEC (26.0-36.8)
[2023-06-24 17:33] LABS: Troponin-I High Sensitivity 3.4 ng/L (<3.5-17.0)
[2023-06-24 17:50] LABS: Alanine Aminotransferase 27 U/L (0-31); Albumin Level 4.4 g/dL (3.5-5.0); Alkaline Phosphatase 72 U/L (39-117); Anion Gap 12 (12-20); Aspartate Amino Transferase 22 U/L (5-31); Bilirubin Total 1.4 mg/dL (0.0-1.0); Blood Urea Nitrogen 8 mg/dL (9-16); Calcium 9.6 mg/dL (8.4-10.2); Carbon Dioxide 25 mmol/L (22-29); Chloride 111 mmol/L (96-108); Creatinine Clr Calc Pharmacy 116.5; Estimated Glomerular Filt Rate > 60; Glucose Random 91 mg/dL (60-115); HCG Quantitative < 2 mIU/mL; Potassium 3.7 mmol/L (3.3-5.1); Sodium 144 mmol/L (135-145)
[2023-06-24 18:52] LABS: D Dimer High Sensitivity < 150 NG/ML
[2023-06-24 19:20] VITALS: BP 118/79; PULSE 57; RESP 13; TEMP 36.8; O2SAT 99
--- NOTE | 2023-06-24 19:21 | P.HPHOSP_ITS ---
History of Present Illness Date of Service: 06/24/23 Chief Complaint: Syncope This is a 28-year-old female with pertinent history of rheumatoid arthritis, morbid obesity who presents to the emergency department for evaluation of dizziness and chest discomfort. Patient states that about 3 days prior to presentation, she had midsternal chest discomfort that started while she was watching TV. It did not exacerbate with walking and did not relieve with rest. It lasted for a while. It was nonradiating and without any episodes of nausea or sweating. Patient had a 2nd episode 2 days prior to presentation while she was walking around the grocery store. She had sudden onset of midsternal chest discomfort followed by episode of dizziness/lightheadedness causing her to have a fall. She did not lose consciousness. No jerking movement of extremities. Patient states she has not experienced similar symptoms prior to this. Also endorses symptoms of gastroesophageal reflux disease. Chest pain is occasionally worse when she takes a deep breath. No fever, chills, palpitations, shortness of breath, abdominal pain, changes in urinary or bowel habits. In the emergency department, EKG with new T-wave inversions in the lateral leads. Cardiology was consulted who requested admission. Review of Systems 2 Constitutional: Constitutional: Reports no additional constitutional complaints ENT: Reports dizziness Cardiovascular: Cardiovascular: Reports chest pain Respiratory: Respiratory: Reports no additional respiratory complaints Gastrointestinal: Gastrointestinal: Reports no additional gastrointestinal complaints Genitourinary: Genitourinary: Reports no additional female genitourinary complaints Neurologic: Reports dizziness [facility] Medical History (Updated 06/24/23 @ 19:54 by Young Williamson MD) Chest pain Anti-cardiolipin antibody positive Rash and other nonspecific skin eruption Hiatal hernia Pulmonary nodules Early stage of Obesity, morbid, BMI 40.0-49.9 Missed menses COVID-19 Asthma Rheumatoid arthritis Abnormal laboratory test Numbness in both hands Polyarthritis Myofascial pain syndrome Family History Maternal Grandmother Diabetes Father HTN (hypertension) Mother HTN (hypertension) Maternal Aunt Colon cancer Surgical History Hx of cholecystectomy H/O breast biopsy Hx of section H/O shoulder surgery Social History Alcohol intake: never Patient Tobacco Use Status: Former Tobacco user Tobacco use type: Cigarette Smoked in Last 30 Days: No Use of substances other than those prescribed or required for medical reasons: No Advance Directives: No Advance Directives Information Provided: No Patient : No Gender identity: Female Meds Allergies Allergy/AdvReac Type Severity Reaction Status Date / Time No Known Allergies Allergy Verified 06/13/23 09:43 Home Medications Medication Instructions Recorded Confirmed Last Taken Type albuterol sulfate 90 mcg/actuation 2 puff inhalation Q4-6H PRN 12/23/22 06/13/23 Unknown History aerosol inhaler (Ventolin HFA) Physical Exam 2 Vital Signs and Narrative: Vital Signs: Last Vital Signs Temp 98.3 F 06/24/23 19:20 Pulse 57 06/24/23 19:20 Resp 13 06/24/23 19:20 BP 118/79 06/24/23 19:20 Pulse Ox 99 06/24/23 19:20 O2 Del Method Room Air 06/24/23 19:20 BMI result Body Mass Index 42.0 Middle-aged female lying in bed in no distress Neck supple, no JVD Regular rate and rhythm, S1-S2 heard Regular breath sounds bilaterally, no wheezing or crackles appreciated Abdomen soft nontender, no guarding, no rigidity Patient is awake, alert and oriented to self, place, time and person ; no focal motor deficit Psych: Normal mood No pedal edema Results Labs 06/24/23 16:55 06/24/23 16:55 Labs: Laboratory Results - last 24 hr 06/24/23 16:55 MCV 83.0 MCH 27.0 MCHC 32.6 RDW 14.8 Plt Count 238 MPV 10.9 Immature Gran % (Auto) 0.2 Neut % (Auto) 44.3 L Lymph % (Auto) 46.3 H [place] % (Auto) 7.3 Eos % (Auto) 1.3 Baso % (Auto) 0.6 Lymph # (Auto) 2.9 [place] # (Auto) 0.5 Eos # (Auto) 0.1 Baso # (Auto) 0.0 Abs Immat Gran (auto) 0.01 Absolute Neuts (auto) 2.8 Absolute Nucleated RBC 0.000 Nucleated RBC % (auto) 0.0 PT 11.8 INR 1.0 APTT 33.9 D-Dimer High Sensitivty < 150 Anion Gap 12 Estim Creat Clear Calc 116.5 Estimated GFR > 60 Random Glucose 91 Calcium 9.6 Total Bilirubin 1.4 H AST 22 ALT 27 Alkaline Phosphatase 72 Troponin I High Sens 3.4 Total Protein 7.0 Albumin 4.4 Beta HCG, Quant < 2 Imaging Radiologist's Impressions: Impressions Chest X-Ray 06/24/23 17:39 IMPRESSION: No acute cardiopulmonary disease. Assessment and Plan (1) Chest pain: Status: Acute (2) Pre-syncope: Status: Acute (3) Abnormal ECG: Status: Acute Plan This is a 28-year-old female with pertinent history of rheumatoid arthritis, morbid obesity who presents to the emergency department for evaluation of dizziness and chest discomfort. #. Atypical chest discomfort with presyncope: EKG with new T-wave inversions. Will admit patient with shelter monitor. Consulted Cardiology, appreciate assistance. Obtaining transthoracic echocardiogram. Trend troponin #. Gastroesophageal reflux disease: Initiating famotidine #. Rheumatoid arthritis: On tocilizumab every week DVT prophylaxis: Lovenox Full code Quality Stroke Does the patient have a stroke diagnosis?: No VTE Prior VTE?: No VTE Risk Level:: Medical - moderate - high VTE Device Contraindication: Treatment Not Indicated VTE Drug Contraindication: N/A - Med Ordered
[2023-06-24] MEDS: Aspirin Enteric Coated 325 MG TABLET.DR PO (20:04)
[2023-06-24] MEDS: Enoxaparin Sodium 40 MG/0.4 ML SYRINGE SUBCUT (20:04)
[2023-06-24] MEDS: Famotidine 20 MG TABLET PO (20:08)
--- NOTE | 2023-06-24 20:45 | PHA.MEDREC ---
Pharmacy Consult ? Medication Reconciliation Pharmacy has completed the medication reconciliation. Patient report HTN medications and arthritis medication. There is no recent fill for HTN meds therefore [facility] will call [facility] to confirm. Patient stated she is getting switch to celebrex, however unclear if she started it. Will confirm in the morning when [facility] Pharmacy is open. Nena Aldridge, PharmD
[2023-06-25 00:24] VITALS: BP 120/76; PULSE 74; RESP 16; TEMP 36.8; O2SAT 94
[2023-06-25 05:47] VITALS: BP 115/74; PULSE 63; RESP 13; TEMP 36.7; O2SAT 97
[2023-06-25 06:24] LABS: MANUAL DIFF FLAG NO
[2023-06-25 06:39] LABS: Anion Gap 11 (12-20); Blood Urea Nitrogen 10 mg/dL (9-16); Calcium 9.4 mg/dL (8.4-10.2); Carbon Dioxide 22 mmol/L (22-29); Chloride 112 mmol/L (96-108); Creatinine Clr Calc Pharmacy 109.6; Estimated Glomerular Filt Rate > 60; Glucose Random 90 mg/dL (60-115); Potassium 3.5 mmol/L (3.3-5.1); Sodium 141 mmol/L (135-145)
[2023-06-25 06:49] LABS: Troponin-I High Sensitivity < 2.7 ng/L (<3.5-17.0)
--- NOTE | 2023-06-25 07:00 | CA_ITS ---
Transthoracic Echocardiogram Patient (Last, First, Middle): Leah Bernal, Gender: Female Date of : 1995 Age: 28 Procedure Date: 06/25/2023 Procedure Type: Transthoracic Echocardiogram Location: ER Height: 127. cm Weight: 103.87 kg BSA: 1.73 m2 Heart Rate: 60 bpm BP: 115 / 74 mmHg Plug Overwrap Machine Tender: DIRK Referring MD: Young Williamson MD Environmental Monitoring Technician: Shadi Godinez MD Symptoms: syncope, chest pain Study Quality: Fair but adequate ECG Rhythm: Sinus Conclusions: - Low normal LV ejection fraction at 50-55% otherwise normal study Findings Procedure Information The quality of the study was technically difficult. The study quality is limited by patients body habitus. Left Ventricle Normal left ventricular cavity size. There is normal left ventricular wall thickness. The left ventricular systolic function is low normal. The visually estimated ejection fraction is between 50-55%. Spectral Doppler is indicative of a normal filling pattern. Peak GLS is -17.6%, borderline normal. Right Ventricle Normal right ventricular cavity size and systolic function. Atria Both atria are normal in size. There is no evidence of interatrial shunt. Aortic Valve Normal aortic valve structure and function. There is no aortic valve stenosis. There is no aortic valve regurgitation. Mitral Valve Normal mitral valve structure and function. There is no mitral valve regurgitation. There is no mitral valve stenosis. Pulmonic Valve The pulmonic valve is likely normal. Tricuspid Valve Normal tricuspid valve structure. There is trace tricuspid valve regurgitation. The right ventricular systolic pressure is normal. The right ventricular systolic pressure is 15 mmHg. Normal right atrial pressure. There is no evidence of pulmonary hypertension. Great Vessels All visible segments of the aorta are normal in size. The visualized portions of the pulmonary artery and branches are normal. Venous The inferior vena cava is normal in size and collapses greater than 50% with inspiration. Pericardium/Pleural There is no evidence of pericardial effusion. Prior Study Comparison No prior study available for comparison. Measurements 2D Linear Measurements IVSd: 0.67 0.6-0.9/0.6-1.0 cm LVIDd: 5.49 3.9-5.3/4.2-5.9 cm LVIDd Index: 3.17 2.4-3.2/2.2-3.1 cm/m2 LVIDs: 4.04 2.0-3.6 cm LVPWd: 0.86 0.7-1.1 cm LV Mass: 187.70 67-162/88-224 g LV Mass Index: 108.50 43-95/49-115 g/m2 LVOT Diam: 2.00 3.0+(-)1.3 cm 2D Systolic Function EF 4C: 52.60 >55% EF 2C: 50.10 >55% EF BiP: 52.00 >55% Mitral Valve MV Pk E: 0.98 MV PK A: 0.43 MV Decel Time: 214.00 E/A: 2.30 E'Lateral: 15.00 E'Medial: 10.80 E/E' Med: 9.00 E/E' Lat: 6.50 PHT: 63.00 MVA PHT: 3.49 Decel Rooks: 4.57 Aortic Valve AoV Pk Michel: 1.41 AoV Pk Grad: 8.00 PANDA: 2.33 LVOT LVOT Pk Michel: 1.02 LVOT Mn Michel: 0.63 LVOT VTI: 0.17 LVOT Pk Grad: 4.00 LVOT Mn Grad: 2.00 LVOT Diam: 2.00 LVOT Area: 3.14 Diastolic Function MV Pk E: 0.98 MV Pk A: 0.43 E/A: 2.30 E'Medial: 10.80 E/E' Med: 9.00 E' Laterial: 15.00 E/E' Lat: 6.50 Right Ventricle TAPSE (mm): 21.70 TVS' Michel: 12.20 Tricuspid Valve TR Pk Michel: 1.76 TR Pk Grad: 12.00 RA Press: 3.00 RVSP: 15.00 Great Vessels Aorta Sinus of Valsalva: 2.60 2.0-3.5 cm Ao Asc: 2.40 2.1-3.4 cm Pulmonary Veins Pulm Vein S/D 0.80 Pulmonary Valve PV Pk Michel: 0.99 Peak PV Grad: 4.00 Updated in Other Vendor System with Status of Final Shadi Godinez MD electronically signed on 06/25/2023 1:55:43 PM with status of Final
[2023-06-25 07:03] LABS: Basophils Absolute Auto 0.1 X10*3/uL (0.0-0.2); Basophils Percent Auto 0.8 % (0-2); Eosinophils Absolute Auto 0.1 X10*3/uL (0.0-0.4); Eosinophils Percent Auto 1.3 % (0-4); Hematocrit 38.4 % (37.0-47.0); Hemoglobin 12.3 g/dl (12.0-16.0); Imm Gran Abs Auto 0.01 X10*3/uL (0.00-0.03); Imm Gran Pct Auto 0.1 % (0.0-0.4); Lymphocytes Absolute Auto 3.7 X10*3/uL (1.2-4.9); Lymphocytes Percent Auto 48.4 % (20-40); Mean Corpuscular Hemoglobin 26.8 pg (27.0-33.0); Mean Corpuscular Volume 83.7 fL (80.0-98.0); Mean Platelet Volume 11.9 fL (9.4-12.3); Monocytes Absolute Auto 0.6 X10*3/uL (0.1-1.2); Neutrophils Absolute Auto 3.2 x10*3/uL (2.0-8.3); Neutrophils Percent Auto 41.4 % (45-73); Platelet Count 235 X10*3/uL (160-400); Red Blood Count 4.59 X10*6/uL (4.20-5.50); Red Cell Distribution Width 14.9 % (11.0-16.0); White Blood Count 7.6 X10*3/uL (4.8-10.8)
--- NOTE | 2023-06-25 14:31 | P.CONCA_ITS ---
History of Present Illness History of Present Illness Date of Service: 06/25/23 Requesting physician: Young Williamson Consult reason: chest pain Chief complaint: Syncope Narrative: I was consulted to see Leah in cardiology consultation today for abnormal EKG. Patient present to the hospital with chest pain. Patient retrosternal midsternal chest discomfort initially started few days ago at rest while watching TV. Subsequently she had another episode of chest pain while she was walking in the grocery store and was followed by episode of dizziness and lightheadedness. She had no loss of consciousness. She came to the hospital. She has cough nonproductive. Pain is worse with deep breathing. She would EKG that shows some T-wave changes in the inferior and lateral leads. Should therefore admitted. Her troponins are negative. Her echocardiogram done at bedside showed low normal LV ejection fraction otherwise normal study with no regional wall motion abnormality. She feels well. No recurrent chest pain. Her troponins have remained negative. Hemodynamically stable. She continues to have mild cough. No wheezing. No productive phlegm. She does have prior history of rheumatoid arthritis currently on immunomodulation, morbid obesity, hiatal hernia. Review of Systems 2 Constitutional: Constitutional: Reports no additional constitutional complaints Eyes: Eyes: Reports no additional eye complaints Cardiovascular: Cardiovascular: Reports chest pain, Denies syncope, Denies leg edema, Reports lightheadedness, Denies palpitations and Denies dyspnea Respiratory: Respiratory: Reports cough, Denies excessive phlegm production and Denies dyspnea Gastrointestinal: Gastrointestinal: Reports no additional gastrointestinal complaints Genitourinary: Genitourinary: Reports no additional female genitourinary complaints Musculoskeletal: Musculoskeletal: Reports no additional musculoskeletal complaints Integumentary/Breasts: Skin/Breast: Reports system reviewed and no additional complaints, except as docu Neurologic: Denies syncope Psychiatric: Psychiatric: Reports no additional psychiatric complaints Endocrine: Endocrine: Denies palpitations [facility] Past Medical History Medical History Chest pain Anti-cardiolipin antibody positive Rash and other nonspecific skin eruption Hiatal hernia Pulmonary nodules Early stage of Obesity, morbid, BMI 40.0-49.9 Missed menses COVID-19 Asthma Rheumatoid arthritis Abnormal laboratory test Numbness in both hands Polyarthritis Myofascial pain syndrome Family History Family History Maternal Grandmother Diabetes Father HTN (hypertension) Mother HTN (hypertension) Maternal Aunt Colon cancer Surgical History Surgical History Hx of cholecystectomy H/O breast biopsy Hx of section H/O shoulder surgery Social History Social History Alcohol intake: never Patient Tobacco Use Status: Former Tobacco user Tobacco use type: Cigarette Smoked in Last 30 Days: No Use of substances other than those prescribed or required for medical reasons: No Advance Directives: No Advance Directives Information Provided: No Patient : No Gender identity: Female Meds Allergies Allergy/AdvReac Type Severity Reaction Status Date / Time No Known Allergies Allergy Verified 06/13/23 09:43 Active Medications: Current Medications Acetaminophen (Acetaminophen 325 Mg Tablet) 650 mg PO Q6H PRN PRN Reason: Pain, Mild (Pain Scale 1-3) Albuterol/Ipratropium (Albuterol/Iprat 2.5/0.5mg 3 Ml Ampul.Neb) 3 ml INHALE Q4H PRN PRN Reason: Wheezing Enoxaparin Sodium (Enoxaparin Sodium 40 Mg/0.4 Ml Syringe) 40 mg SUBCUT Q24H [facility] Last Admin: 06/24/23 20:04 Dose: 40 mg Famotidine (Famotidine 20 Mg Tablet) 20 mg PO BEDTIME [facility] Last Admin: 06/24/23 20:08 Dose: 20 mg Ibuprofen (Ibuprofen 600 Mg Tablet) 600 mg PO Q6H PRN PRN Reason: Pain, Moderate(Pain Scale 4-6) Melatonin (Melatonin 3 Mg Tablet) 6 mg PO BEDTIME PRN PRN Reason: Insomnia Ondansetron HCl (Ondansetron Hcl 4 Mg/2 Ml Vial) 4 mg IVPUSH Q8H PRN PRN Reason: Nausea and Vomiting Sodium Chloride (0.9 % Sodium Chloride Flush 3 Ml Syringe) 3 ml IVFLUSH QSHIFT [facility] Last Admin: 06/25/23 08:48 Dose: Not Given Home Medications Medication Instructions Recorded Confirmed Last Taken Type albuterol sulfate 90 mcg/actuation 2 puff inhalation Q4-6H PRN 12/23/22 06/24/23 Unknown History aerosol inhaler (Ventolin HFA) Wheezing etanercept 50 mg/mL (1 mL) 50 mg subcut QWEEK 06/24/23 06/24/23 Unknown History subcutaneous pen injector (Enbrel SureClick) ibuprofen 600 mg tablet 600 mg PO Q6H PRN Pain 06/24/23 06/24/23 Unknown History Physical Exam 2 Vital Signs: Vital Signs: Last Vital Signs Temp 98.1 F 06/25/23 05:47 Pulse 63 06/25/23 05:47 Resp 13 06/25/23 05:47 BP 115/74 06/25/23 05:47 Pulse Ox 97 06/25/23 05:47 O2 Del Method Room Air 06/25/23 05:47 BMI result Body Mass Index 42.0 Const: General: cooperative, comfortable, no acute distress, alert and awake Nutritional Appearance: obese Orientation/consciousness: patient oriented x3 Limitations: no limitations HEENT: Head: Yes normocephalic and Yes atraumatic Neck: Neck: Yes trachea midline, Yes supple and Yes no JVD Resp: Effort & Inspection: normal respiratory effort Auscultation: clear to auscultation bilaterally Cardio: Jugular venous distension: no JVD Palpation: normal PMI Rate: r egular rate Rhythm: regular rhythm Heart sounds: S1 normal heart sound present, S2 normal heart sound present, no click, no gallops, no murmurs and no rubs GI: Auscultation: normal bowel sounds Skin: General skin exam: no rashes or lesions noted Neuro: General: patient oriented x3 and no focal motor deficits Extrem: General: Yes no clubbing, cyanosis or edema Objective Labs and Meds 06/25/23 05:26 06/25/23 05:26 Lab results: Laboratory Results - last 24 hr 06/24/23 06/25/23 16:55 05:26 WBC 6.3 7.6 RBC 4.70 4.59 Hgb 12.7 12.3 Hct 39.0 38.4 MCV 83.0 83.7 MCH 27.0 26.8 L MCHC 32.6 32.0 RDW 14.8 14.9 Plt Count 238 235 MPV 10.9 11.9 Immature Gran % (Auto) 0.2 0.1 Neut % (Auto) 44.3 L 41.4 L Lymph % (Auto) 46.3 H 48.4 H [place] % (Auto) 7.3 8.0 Eos % (Auto) 1.3 1.3 Baso % (Auto) 0.6 0.8 Lymph # (Auto) 2.9 3.7 [place] # (Auto) 0.5 0.6 Eos # (Auto) 0.1 0.1 Baso # (Auto) 0.0 0.1 Abs Immat Gran (auto) 0.01 0.01 Absolute Neuts (auto) 2.8 3.2 Absolute Nucleated RBC 0.000 0.000 Nucleated RBC % (auto) 0.0 0.0 PT 11.8 INR 1.0 APTT 33.9 D-Dimer High Sensitivty < 150 Sodium 144 141 Potassium 3.7 3.5 Chloride 111 H 112 H Carbon Dioxide 25 22 Anion Gap 12 11 L BUN 8 L 10 Creatinine 0.80 0.85 Estim Creat Clear Calc 116.5 109.6 Estimated GFR > 60 > 60 Random Glucose 91 90 Calcium 9.6 9.4 Total Bilirubin 1.4 H AST 22 ALT 27 Alkaline Phosphatase 72 Troponin I High Sens 3.4 < 2.7 Total Protein 7.0 Albumin 4.4 Beta HCG, Quant < 2 EKG shows nonspecific T-wave inversion anterior leads. Imaging Radiologist's impression: Impressions Chest X-Ray 06/24/23 17:39 IMPRESSION: No acute cardiopulmonary disease. Assessment and Plan (1) Chest pain: Status: Acute Chest pain with very atypical features. No significant high risk features with negative troponins nonspecific EKG changes and nonischemic sounding chest pain with some pleuritic component with low normal LV ejection fraction with no regional wall motion abnormality. Likelihood of acute coronary syndrome is extremely low. Patient can be discharged home. Given her risk factors of rheumatoid arthritis and morbid obesity will pursue outpatient workup with vasodilating myocardial perfusion imaging. Near-syncope probably related to dehydration. Advised to maintain adequate hydration and salt intake. Will follow-up after stress testing. Thank you for allowing me to partake in her care Procedures Date of Service Date of Service: 06/25/23
--- NOTE | 2023-06-25 14:31 | PM.DS ---
DS: Providers Provider Date of Service: 06/25/23 Date of admission: 06/24/23 19:37 Date of discharge: 06/25/23 Primary care physician: Marzena Main MD Consults: 06/24/23 19:26 Consult to Cardiology Routine Consulting Provider: [facility] Cardiovascular Services Reason for consultation: syncope, chest pain Has provider been notified: Yes DS: Diagnosis Discharge Diagnosis (1) Chest pain: Status: Acute (2) Pre-syncope: Status: Acute (3) Abnormal ECG: Status: Acute DS: Summary Hospital Course Hospital Course: 28-year-old female with pertinent history of rheumatoid arthritis, morbid obesity who presents to the emergency department for evaluation of dizziness and chest discomfort. Patient states that about 3 days prior to presentation, she had midsternal chest discomfort that started while she was watching TV. It did not exacerbate with walking and did not relieve with rest. It lasted for a while. It was nonradiating and without any episodes of nausea or sweating. Patient had a 2nd episode 2 days prior to presentation while she was walking around the grocery store. She had sudden onset of midsternal chest discomfort followed by episode of dizziness/lightheadedness causing her to have a fall. She did not lose consciousness. No jerking movement of extremities. Patient states she has not experienced similar symptoms prior to this. Also endorses symptoms of gastroesophageal reflux disease. Chest pain is occasionally worse when she takes a deep breath. No fever, chills, palpitations, shortness of breath, abdominal pain, changes in urinary or bowel habits. In the emergency department, EKG with new T-wave inversions in the lateral leads. Hospital Course Admitted on telemetry overnight where monitor failed to demonstrate acute dysrhythmias. Patient underwent a 2D echo and was seen in consultation by Cardiology. Echo was read as low normal EF; EKG changes had resolved. Cardiology does not feel this is cardiac related but recommends follow-up outpatient echo in 4-6 weeks. Given some vague GI complaints, she will be started on omeprazole 40 mg daily and can follow-up with the PCP at the next available appointment Time Attestation Discharge Coordination Time (in mins): 35 Quality: Safe Use of Opioids Does Pt have an Active Cancer Diagnosis on the Problem List?: No Quality: Stroke Does the patient have a stroke diagnosis?: No Physical Exam Vital Signs: Vital Signs: Last Vital Signs Temp 98.1 F 06/25/23 05:47 Pulse 63 06/25/23 05:47 Resp 13 06/25/23 05:47 BP 115/74 06/25/23 05:47 Pulse Ox 97 06/25/23 05:47 O2 Del Method Room Air 06/25/23 05:47 BMI result Body Mass Index 42.0 Const: Other: Awake alert no acute distress Resp: Other: Clear to auscultation bilaterally no rales rhonchi or wheezes Cardio: Other: No S4; positive S1-S2; no S3 murmurs rubs or gallops GI: Other: Soft nontender nondistended normoactive bowel sounds Extrem: Other: No edema bilaterally DS: Data Data Completed and Pending Labs on day of discharge: Laboratory Results - last 24 hr 06/24/23 06/25/23 16:55 05:26 WBC 6.3 7.6 RBC 4.70 4.59 Hgb 12.7 12.3 Hct 39.0 38.4 MCV 83.0 83.7 MCH 27.0 26.8 L MCHC 32.6 32.0 RDW 14.8 14.9 Plt Count 238 235 MPV 10.9 11.9 Immature Gran % (Auto) 0.2 0.1 Neut % (Auto) 44.3 L 41.4 L Lymph % (Auto) 46.3 H 48.4 H [place] % (Auto) 7.3 8.0 Eos % (Auto) 1.3 1.3 Baso % (Auto) 0.6 0.8 Lymph # (Auto) 2.9 3.7 [place] # (Auto) 0.5 0.6 Eos # (Auto) 0.1 0.1 Baso # (Auto) 0.0 0.1 Abs Immat Gran (auto) 0.01 0.01 Absolute Neuts (auto) 2.8 3.2 Absolute Nucleated RBC 0.000 0.000 Nucleated RBC % (auto) 0.0 0.0 PT 11.8 INR 1.0 APTT 33.9 D-Dimer High Sensitivty < 150 Sodium 144 141 Potassium 3.7 3.5 Chloride 111 H 112 H Carbon Dioxide 25 22 Anion Gap 12 11 L BUN 8 L 10 Creatinine 0.80 0.85 Estim Creat Clear Calc 116.5 109.6 Estimated GFR > 60 > 60 Random Glucose 91 90 Calcium 9.6 9.4 Total Bilirubin 1.4 H AST 22 ALT 27 Alkaline Phosphatase 72 Troponin I High Sens 3.4 < 2.7 Total Protein 7.0 Albumin 4.4 Beta HCG, Quant < 2 Discharge Plan Discharge Anticipated Discharge Date/Time: 06/25/23 14:27 Patient Disposition: Home, Self-Care Discharge Diagnosis: Near syncope Referrals: Marzena Strong MD [Primary Care Provider] - 1 Week Discharge Medications: New omeprazole 40 mg capsule,delayed release(DR/EC) 40 mg PO DAILY Qty: 30 1RF Continued acetaminophen [Tylenol] 325 mg tablet 650 mg PO QID PRN (Reason: pain) Qty: 30 0RF Enbrel SureClick 50 mg/mL (1 mL) pen injector 50 mg subcut QWEEK ibuprofen 600 mg Tablet 600 mg PO Q6H PRN (Reason: Pain) albuterol sulfate [Ventolin HFA] 90 mcg/actuation HFA aerosol inhaler 2 puff inhalation Q4-6H PRN (Reason: Wheezing) Discharge Orders: Discharge Order (Routine); Ordered 06/25/23 Ordered By: Adama Miller Diet: Advance to usual diet Activity on Discharge: As tolerated Stand Alone Forms: Patient Portal Discharge page Care Plan Goals: Resume all medications as taken prior to the hospital Health Concerns: You were seen by catheter builder. He reviewed her cardiac ultrasound and does not feel this is related to your heart. Plan of Treatment: Start taking omeprazole 40 mg daily and follow up with your PCP at next available visit Assessment: See discharge summary
--- NOTE | 2023-06-25 15:47 | MHC.CM.PN ---
Patient d/c'd home before being seen by case management.
== END 2023-06-25 20:49 | disposition home or self-care (01) ==
LOC: HO.ED 19:42 → HO.EDOVER 20:11
PROVIDERS: Physician Assistant; Admitting Provider Student in an Organized Health Care Education/Training Program; Emergency Provider Emergency Medicine; PCP Internal Medicine; Visit Provider Hospitalist
DX: R55 Syncope and collapse (principal); R07.9 Chest pain, unspecified; R94.31 Abnormal electrocardiogram [ECG] [EKG]; S09.93XA Unspecified injury of face, initial encounter; W18.30XA Fall on same level, unspecified, initial encounter; Y93.89 Activity, other specified; Y92.89 Other specified places as the place of occurrence of the external cause; Y99.9 Unspecified external cause status; K21.9 Gastro-esophageal reflux disease without esophagitis; M06.9 Rheumatoid arthritis, unspecified; Z83.3 Family history of diabetes mellitus; Z82.49 Family history of ischemic heart disease and other diseases of the circulatory system
CPT/HCPCS: 36415; 71045; 80048; 80053; 84484; 84702; 85025; 85379; 85610; 85730; 93005; 93306; 93356; 96372; 99222; 99285; J1650; Q9957

== ENCOUNTER → 2023-06-24 16:00 | Outpatient (BNV) | payer MEDICAID, SELFPAY | PROVIDERS: Admitting Provider Student in an Organized Health Care Education/Training Program; Emergency Provider Emergency Medicine; PCP Internal Medicine; Visit Provider Internal Medicine Cardiovascular Disease | DX: R94.31 Abnormal electrocardiogram [ECG] [EKG] (principal) | CPT/HCPCS: 93010 ==

== ENCOUNTER → 2023-06-24 16:54 | Outpatient (BNV) | payer MEDICAID, SELFPAY | PROVIDERS: Emergency Provider Emergency Medicine; PCP Internal Medicine; Visit Provider Student in an Organized Health Care Education/Training Program | DX: R07.9 Chest pain, unspecified (principal); R55 Syncope and collapse; R94.31 Abnormal electrocardiogram [ECG] [EKG] | CPT/HCPCS: 99222; 99239 ==

== ENCOUNTER 2023-06-24 19:37 | Outpatient (BNV) | payer MEDICAID, SELFPAY | END 2023-06-25 07:00 | PROVIDERS: Admitting Provider Student in an Organized Health Care Education/Training Program; Emergency Provider Emergency Medicine; PCP Internal Medicine; Visit Provider Internal Medicine Cardiovascular Disease | DX: R07.9 Chest pain, unspecified (principal); R94.31 Abnormal electrocardiogram [ECG] [EKG] | CPT/HCPCS: 93306; 93356 ==

== ENCOUNTER → 2023-06-24 19:37 | Outpatient (BNV) | payer MEDICAID, SELFPAY | PROVIDERS: Admitting Provider Student in an Organized Health Care Education/Training Program; Emergency Provider Emergency Medicine; PCP Internal Medicine; Visit Provider Internal Medicine Cardiovascular Disease | DX: R07.9 Chest pain, unspecified (principal); R94.31 Abnormal electrocardiogram [ECG] [EKG] | CPT/HCPCS: 99222 ==

== ENCOUNTER → 2023-07-03 08:40 | Outpatient (BNVA) | payer MEDICAID, SELFPAY | PROVIDERS: PCP Internal Medicine; Visit Provider Physician Assistant ==

== ENCOUNTER 2023-07-04 08:01 | Outpatient (AMB) | payer MEDICAID, SELFPAY ==
--- NOTE | 2023-07-04 14:31 | A.OFFVIS_ITS ---
Intake VS Expanded 07/04/23 17:45 Height 5 ft 1 in Weight 224 lb 6 oz BMI 42.4 Body Fat % 47.7 Body Fat Mass 107.2 Fat Free Mass 117.2 Visceral Fat Rating 12 Body Water % 37.5 Body Water Mass 84.2 Basal Metabolic Rate/Score 1,698 Intake Visit Reasons: TV Consult/Transfer Juan Carlos *FINAL ASSEMBLY AND PACKING SUPERVISOR* Allergies No Known Allergies Allergy (Verified 06/13/23 09:43) HPI TV Consult/Transfer Juan Carlos *FINAL ASSEMBLY AND PACKING SUPERVISOR* HPI Details Start time: 2pm, End time: 3pm ?I spent 35 minutes speaking with the patient on the phone plus an additional 25 minutes reviewing and updating records for a total of 60 minutes HPI Comments History of Present Illness Details Overall weight loss: 25.6lbs, or 10.23%TBWL recommended current meal plan includes: 2 Pure protein shakes, (1 scoop in 8 oz low fat unsweetened almond milk each) First shake at 10am-12pm Second shake at? 1pm-3pm 1 protein bar (Zone Perfect bars) at 4pm -6pm. Dinner at 6pm (7 forks of protein and 7 forks of salad/vegetables). 48 oz water daily Current exercise plan includes: PF - treadmill daily, 400 calories PFSH Medical History Chest pain Anti-cardiolipin antibody positive Rash and other nonspecific skin eruption Hiatal hernia Pulmonary nodules Early stage of Obesity, morbid, BMI 40.0-49.9 Missed menses COVID-19 Asthma Rheumatoid arthritis Abnormal laboratory test Numbness in both hands Polyarthritis Myofascial pain syndrome Surgical History Hx of cholecystectomy H/O breast biopsy Hx of section H/O shoulder surgery Family History Maternal Grandmother Diabetes Father HTN (hypertension) Mother HTN (hypertension) Maternal Aunt Colon cancer Social History Alcohol intake: never Patient Tobacco Use Status: Former Tobacco user Tobacco use type: Cigarette Gender identity: Female Assessment & Plan Assessment & Plan (1) Morbid obesity: Code(s): E66.01 - Morbid (severe) obesity due to excess calories Plan: 1. Plan for lap sleeve gastrectomy including upper GI endoscopy. All tests has been completed and reviewed and the patient is cleared for the surgery. ?If diaphragmatic or ventral hernias are present at time of surgery, these will be repaired laparoscopically as well. Risks and complications were discussed in detail including possible conversion to an open procedure, anastomotic leak, bleeding requiring transfusion, small bowel obstruction, , DVT and pulmonary embolism, cardiac, or pulmonary complications, as assisted complications such as anastomotic ulcer, insufficient weight loss and vitamin deficiencies. I emphasized the importance of close follow-up, adherence to instructions and good communication. So far she has proven to be an excellent communicator and very compliant with all our directions accomplishing a great weight loss. I believe that she is an excellent candidate and she is ready. 2. The patient participated in a structured preoperative lifestyle intervention program supervised by a physician the 9 months preceding the surgical procedure. The lifestyle intervention included a structured nutritional plan with a specific daily protein intake goal, an exercise plan with a 2000 calorie burn weekly goal, weekly behavior modification guidance and completion of eight 1- hour online nutritional classes and passing successfully the corresponding quizzes. Adherence to preoperative care plan was demonstrated by completing an extensive preoperative work-up. Program participation was demonstrated by completing 5 visits with our medical team and by sharing weekly weight measurements weekly for 5 consecutive months via an approved body composition scale. Compliance to the lifestyle intervention was demonstrated by achieving a 25.6lbs weight-loss or 10.2% total body weight loss (TBWL). No medications were used to achieve this weight loss. In our published experience an over 7% preoperative TBWL, achieved by meeting the diet and exercise goals of our program improves surgical outcomes, reduces the potential for surgical complications, and predicts a statistically significant higher weight loss up to 6 years postoperatively. 3. Continue same nutritional plan of 2 Pure protein shakes with one scoop each in 8oz almond milk, one Zone Perfect protein bar and one meal (7 forks of meat and 7 forks of salad or vegetables) 4. Continue same exercise plan doing treadmill 5 days per week for 400 calories 5. Send me weight measurements tomorrow and weekly on Fridays Telehealth Telehealth Location of provider rendering services: practice address Location of patient: address on file Patient Identification confirmed using: Name, : Yes Telehealth method: voice only Patient verbally consented to treatment: Yes Patient verbally consented to billing insurance company: Yes Patient informed of any privacy concerns related to visit: Yes Minutes spent on Phone/Video with Pt.: 60 Coding Level of Care Code Tele Est Pt Level 5 (07241) Diagnoses Morbid obesity E66.01 Time Spent (min) 60 Comment With a Mexican speaking track subway repair supervisor
[2023-07-04 17:45] VITALS: BMI 42.4
== END 2023-07-04 17:55 | disposition home or self-care (01) ==
LOC: HO.HBS 08:02
PROVIDERS: PCP Internal Medicine; Visit Provider Surgery
DX: E66.01 Morbid (severe) obesity due to excess calories (principal); Z68.41 Body mass index [BMI] 40.0-44.9, adult
CPT/HCPCS: 99215

== ENCOUNTER → 2023-07-04 08:01 | Outpatient (BNVA) | payer MEDICAID, SELFPAY | PROVIDERS: PCP Internal Medicine; Visit Provider Surgery ==

== ENCOUNTER 2023-07-07 09:41 | Outpatient (REF) | payer MEDICAID, SELFPAY ==
[2023-07-07 10:00] LABS: MANUAL DIFF FLAG NO
[2023-07-07 10:14] LABS: Basophils Percent Auto 0.8 % (0-2); Eosinophils Absolute Auto 0.1 X10*3/uL (0.0-0.4); Eosinophils Percent Auto 1.7 % (0-4); Hematocrit 38.7 % (37.0-47.0); Hemoglobin 12.5 g/dl (12.0-16.0); Imm Gran Abs Auto 0.02 X10*3/uL (0.00-0.03); Imm Gran Pct Auto 0.4 % (0.0-0.4); Lymphocytes Absolute Auto 2.6 X10*3/uL (1.2-4.9); Mean Corpuscular HGB Conc 32.3 g/dl (31.0-35.0); Mean Corpuscular Hemoglobin 27.5 pg (27.0-33.0); Mean Corpuscular Volume 85.1 fL (80.0-98.0); Mean Platelet Volume 10.9 fL (9.4-12.3); Monocytes Absolute Auto 0.5 X10*3/uL (0.1-1.2); Monocytes Percent Auto 8.8 % (2-11); Neutrophils Absolute Auto 2.1 x10*3/uL (2.0-8.3); Neutrophils Percent Auto 39.3 % (45-73); Platelet Count 258 X10*3/uL (160-400); Red Blood Count 4.55 X10*6/uL (4.20-5.50); Red Cell Distribution Width 14.7 % (11.0-16.0); White Blood Count 5.3 X10*3/uL (4.8-10.8)
[2023-07-07 10:55] LABS: Erythrocyte Sedimentation Rate 7 MM/HR (0-20)
[2023-07-07 10:59] LABS: Alanine Aminotransferase 29 U/L (0-31); Alkaline Phosphatase 71 U/L (39-117); Anion Gap 11 (12-20); Aspartate Amino Transferase 21 U/L (5-31); Blood Urea Nitrogen 9 mg/dL (9-16); C Reactive Protein 0.14 mg/dL (< or = 0.50); Calcium 9.4 mg/dL (8.4-10.2); Carbon Dioxide 22 mmol/L (22-29); Chloride 112 mmol/L (96-108); Estimated Glomerular Filt Rate > 60; Glucose Random 99 mg/dL (60-115); Potassium 3.7 mmol/L (3.3-5.1); Sodium 141 mmol/L (135-145); Total Protein 6.6 g/dL (6.5-8.0)
[2023-07-07 11:52] LABS: Bilirubin Total 1.4 mg/dL (0.0-1.0)
== END 2023-07-07 09:42 | disposition home or self-care (01) ==
LOC: HO.LAB 09:41
PROVIDERS: PCP Internal Medicine; Visit Provider Student in an Organized Health Care Education/Training Program
DX: M05.9 Rheumatoid arthritis with rheumatoid factor, unspecified (principal)
CPT/HCPCS: 36415; 80053; 85025; 85652; 86140

== ENCOUNTER 2023-07-08 08:50 | Outpatient (AMB) | payer MEDICAID, SELFPAY ==
--- NOTE | 2023-07-08 09:10 | MHC.OFFVIS ---
Intake Vital Signs 07/08/23 09:11 Height 5 ft 1 in Weight 229 lb 8.019 oz BMI 43.4 BP 110/72 Blood Pressure Location Rt brachial Position Sitting Pulse 73 Pulse Source Pulse Oximeter Pulse Oximetry (%) 97 Oxygen Delivery Method Room Air Intake Visit Reasons: RA/CM Intake Note: Patient last seen 04/05/23 presents today for follow up and test results. She saw Felecia on 05/15 facial redness and rash patches on left upper arm and left shoulder blade. Roaster Operator Required: No Roaster Operator Name: Neris [id number] Accompanied by: Self / Same As Patient Allergies No Known Allergies Allergy (Verified 07/08/23 09:17) Medication List - Last Reconciled 07/08/23 by Mao Serrano MD acetaminophen (Tylenol) 650 mg (2 x 325 mg) PO QID PRN Actemra ACTPen (tocilizumab) 162 mg (0.9 mL) subcut QWEEK NS albuterol sulfate 90 mcg/actuation (Ventolin HFA) 2 puffs inhalation Q4-6H PRN ibuprofen 600 mg PO Q6H PRN omeprazole 40 mg PO DAILY HPI HPI Comments History of Present Illness Details 28-year-old female with seropositive RA returns for follow-up. Last month, patient presented to clinic complaining of rashes on face and shoulders. She was evaluated by Felecia Patel and Enbrel was discontinued. Switched to Actemra. She started the Actemra 4 days ago. She cannot think of any complications related to Actemra. She states that she was admitted to the hospital a few days ago for chest pain, EKG showed nonspecific T-wave abnormality, 2D echo showed low normal EF and she has a follow-up appointment with Cardiology in 2-3 weeks Initial history: This is a 27-year-old female with seropositive RA who returns for follow-up. She was last evaluated by Dr. House 2 years ago. Patient was started on Cimzia, she mentions that she had a skin rash after the 1st injection and she stopped it. She states that she was then prescribed some medications for rheumatoid arthritis, she does not recall their name. She has not been evaluated by repairer helper in 2 years. Patient is complaining of diffuse pain everywhere. In her neck, shoulders, wrists, hands, lower back. She has morning stiffness of her hands lasting 5 minutes. Stated that she no longer wears her ring due to finger swelling. [facility] Medical History Chest pain Anti-cardiolipin antibody positive Rash and other nonspecific skin eruption Hiatal hernia Pulmonary nodules Early stage of Obesity, morbid, BMI 40.0-49.9 Missed menses COVID-19 Asthma Rheumatoid arthritis Abnormal laboratory test Numbness in both hands Polyarthritis Myofascial pain syndrome Surgical History Hx of cholecystectomy H/O breast biopsy Hx of section H/O shoulder surgery Family History Maternal Grandmother Diabetes Father HTN (hypertension) Mother HTN (hypertension) Maternal Aunt Colon cancer Social History Alcohol intake: never Patient Tobacco Use Status: Former Tobacco user Tobacco use type: Cigarette Gender identity: Female Review of Systems [facility] [place], [place] Reports arthralgias, Reports joint swelling and Reports stiffness Physical Exam Vital Signs: Last Vital Signs Pulse 73 07/08/23 09:11 BP 110/72 07/08/23 09:11 Pulse Ox 97 07/08/23 09:11 Oxygen Delivery Method Room Air 07/08/23 09:11 BMI result Body Mass Index 43.4 Const General: cooperative, healthy appearing and comfortable Nutritional Appearance: obese morbidly obese Orientation/consciousness: patient oriented x3 Limitations: no limitations HEENT Head: Yes normocephalic and Yes atraumatic Mouth: moist mucous membranes Resp Effort & Inspection: normal respiratory effort and able to speak in complete sentences Auscultation: clear to auscultation bilaterally Cardio Rate: regular rate Rhythm: regular rhythm Neuro General: patient oriented x3 Extrem Other: Bilateral wrist tenderness and pain with full flexion and extension Left 2nd and 3rd MCP tenderness, positive MCP squeeze test Left 4th and 5th PIP tenderness and diffuse DIP tenderness Right 2nd and 3rd PIP tenderness and diffuse DIP tenderness Bilateral elbow pain with full flexion and extension Bilateral knee pain with full flexion and extension Assessment & Plan Assessment & Plan (1) Seropositive rheumatoid arthritis: Comment: +RF +++CCP dx 05/2020 Cimzia 06/2020 DC due to skin rash Enbrel 02/2023-05/2023 DT due to skin rash Actemra Code(s): M05.9 - Rheumatoid arthritis with rheumatoid factor, unspecified Plan: This is a 28-year-old female with seropositive RA who presents for follow-up. She just started Actemra last week. She continues to have multiple tender joints but no swollen joints today. Inflammatory markers are normal. Advised patient that it is too early to assess response to Actemra. Continue with Actemra every other week Labs before next visit in 3 months (2) High risk medication use: Code(s): Z79.899 - Other alf (current) drug therapy Plan: Side effects of Actemra were discussed with the patient in detail including increased risk of infection, Patient fully aware. Advised patient to seek medical care [facility] if patient has an infection and advised patient to stop the medication until the infection is resolved. Patient is sexually active and is currently using the Nexplanon. He states that the Nexplanon has been quite effective for her in the past. I explained to patient that Actemra is contraindicated in and she should let us know if she becomes and stop Actemra Plan I spent 26 minutes reviewing patient's chart, evaluating patient, ordering diagnostic workup, counseling patient and documenting in the chart Orders: Orders Complete Blood Count Auto Diff 3 Months M05.9 - Rheumatoid arthritis with rheumatoid factor, unspecified Erythrocyte Sedimentation Rate 3 Months M05.9 - Rheumatoid arthritis with rheumatoid factor, unspecified Comprehensive Met. Panel 3 Months M05.9 - Rheumatoid arthritis with rheumatoid factor, unspecified C Reactive Protein 3 Months M05.9 - Rheumatoid arthritis with rheumatoid factor, unspecified Coding Level of Care Code Est Pt Level 4 (07896) Diagnoses Seropositive rheumatoid arthritis M05.9 High risk medication use Z79.899
[2023-07-08 09:11] VITALS: BP 110/72; PULSE 73; O2SAT 97; BMI 43.4
== END 2023-07-08 09:33 | disposition home or self-care (01) ==
PROVIDERS: PCP Internal Medicine; Visit Provider Student in an Organized Health Care Education/Training Program
DX: M05.79 Rheumatoid arthritis with rheumatoid factor of multiple sites without organ or systems involvement (principal); Z79.899 Other long term (current) drug therapy
CPT/HCPCS: 99214

== ENCOUNTER → 2023-07-08 08:50 | Outpatient (BNVA) | payer MEDICAID, SELFPAY | PROVIDERS: PCP Internal Medicine; Visit Provider Student in an Organized Health Care Education/Training Program | DX: M05.9 Rheumatoid arthritis with rheumatoid factor, unspecified (principal); Z79.899 Other long term (current) drug therapy | CPT/HCPCS: 99212 ==

== ENCOUNTER 2023-07-09 10:38 | Day surgery (SDC) | payer MEDICAID, SELFPAY ==
--- NOTE | 2023-07-09 12:07 | P.CONAN_ITS ---
[facility] Active Problems Active Problems: All Active Problems (Updated 07/08/23 @ 09:37 by Mao Serrano MD) Pre-syncope (Acute) Chest pain (Acute) Abnormal ECG (Acute) Syncope (Acute) Diagnosis unknown (Acute) Anti-cardiolipin antibody positive (Acute) Rash and other nonspecific skin eruption (Acute) Numbness in both hands (Acute) Morbid obesity (Acute) Fibromyalgia, primary (Acute) High risk medication use (Acute) Asthma (Acute) Hiatal hernia (Acute) Pulmonary nodules (Acute) GI bleed (Acute) Snoring (Acute) Polyarthralgia (Acute) Seropositive rheumatoid arthritis (Acute) Vitamin D deficiency (Acute) Past Medical History Medical History Chest pain Anti-cardiolipin antibody positive Rash and other nonspecific skin eruption Hiatal hernia Pulmonary nodules Early stage of Obesity, morbid, BMI 40.0-49.9 Missed menses COVID-19 Asthma Rheumatoid arthritis Abnormal laboratory test Numbness in both hands Polyarthritis Myofascial pain syndrome Family History Family History Maternal Grandmother Diabetes Father HTN (hypertension) Mother HTN (hypertension) Maternal Aunt Colon cancer Family history of problems with anesthesia: No Surgical History Surgical History Hx of cholecystectomy H/O breast biopsy Hx of section H/O shoulder surgery History of Problems with Anesthesia: No Social History Social History Alcohol intake: never Patient Tobacco Use Status: Former Tobacco user Tobacco use type: Cigarette Advance Directives: No Advance Directives Information Provided: Yes Gender identity: Female Meds Allergies Allergy/AdvReac Type Severity Reaction Status Date / Time No Known Allergies Allergy Verified 07/08/23 09:17 Active Medications: Current Medications Lactated Ringer's (Lr) 1,000 mls @ 80 mls/hr IVCONT .[id number] [facility] Home Medications Medication Instructions Recorded Confirmed Last Taken Type albuterol sulfate 90 mcg/actuation 2 puff inhalation Q4-6H PRN 12/23/22 06/24/23 Unknown History aerosol inhaler (Ventolin HFA) Wheezing ibuprofen 600 mg tablet 600 mg PO Q6H PRN Pain 03/12/24 03/12/24 Unknown History Exam Airway Mallampati Class: II TM Dist: >3cm Neck ROM: Full Heart: rrr Lungs: cta Assessment and Plan Assessment Anesthesia Assessment: Anesthesia Plan Discussed and Chart Reviewed Final Anesthetic Review Family History of Problems with Anesthesia: No History of Problems with Anesthesia: No NPO: Yes ASA Class: III Final Preanesthetic Review: No Changes in Pt Med Stat, Meds/Allgs Chart Reviewed and Consent Obtained/Reviewed Patient Risk: Intermediate Procedure Risk: Intermediate Anesthetic Plan Anesthetic Plan: MAC: Disposition: Standard PACU
[2023-07-09 12:08] LABS: UPreg QC Valid YES; Urine Pregnancy NEGATIVE (NEGATIVE)
[2023-07-09 12:28] VITALS: BP 110/53; PULSE 65; RESP 16; TEMP 36.3; O2SAT 99; BMI 44.1
[2023-07-09] MEDS: Lactated Ringers 1,000 ML 80 ML IVCONT (12:37)
--- NOTE | 2023-07-09 13:09 | MHC.SHP ---
Pre-Procedural Eval Section A - 24 Hr Update-Section A only Date of Service: 07/09/23 The patient is an INPATIENT: No The patient has been examined within 24 hours of the surgical procedure. The History & Physical has been completed within 30 days and I have reviewed it.: Yes Section B - Complete if H&P > 30 days Chief Complaint: Congenital hiatus hernia Details of Present Illness: GERD Relevant Family History (Specify if Yes): No Relevant Social History: None Present Medications: None Medical History: No relevant PMH History of Previous Operations: No relevant previous surgery Allergies: Allergies Allergy/AdvReac Type Severity Reaction Status Date / Time No Known Allergies Allergy Verified 07/08/23 09:17 Review of Systems Sugical H&P ROS: Negative: Constitution, Cardiovascular, Respiratory, Neurological, Psychiatric, Hem-Onc, Allergic/Immunologic, Gastrointestinal, Genitourinary, Musculoskeletal, Integumentary, Endocrine and Eyes/Ears/Nose/Throat Exam Surgical H&P Exam: Normal: HEENT, Normal: Heart, Normal: Lungs, Normal: Extremities, Normal: Abdomen, Normal: Skin and Normal: Neurological Plan Diagnosis/Plan: Unchanged (EGD to assess etiology of GERD. Risks of bleeding and perforation were discussed with the patient and she is in agreement with the plan.) I have reviewed the history and physical and performed a pertinent physical examination on my patient. No changes have occurred unless specified. Time Spent With Patient Time: Total time managing care of this patient today ____ minutes.
--- NOTE | 2023-07-09 13:12 | P.BOP_ITS ---
Brief Operative Note Date of Service: 07/09/23 Pre-op diagnosis: GERD Post-op diagnosis: same Procedure: PROCEDURE DATE: 07/09/2023 PREOPERATIVE DIAGNOSIS: GERD POSTOPERATIVE DIAGNOSIS: ?Same as above. Normal endoscopy PROCEDURE: Cuyvtqav-bbsibn-qfkfzovbgujr with biopsies Surgeon: Cora Palmer M.D.. Ph.D. Doctor Of Veterinary Medicine: None ? Anesthesia: IV sedation Estimated blood loss: ?Minimal FINDINGS AND PROCEDURE: ? OPERATIVE INDICATIONS: ?The patient is a 28 year old female known to me who is interested in bariatric surgery. The patient has GERD. Based on this information I recommended an upper endoscopy to evaluate the patient's symptoms. Risks and complications of the surgery were discussed with the patient in advance particularly the possibility of perforation or bleeding that may require surgical intervention. The patient understood the risks and was in agreement with the plan. ? PROCEDURE: After informed consent was obtained by the patient, the patient was ?transferred to the Operating Room and was placed in the supine position.? After successful induction of IV sedation, a mouth block was inserted and the patient was placed in the left lateral decubitus position. However, the patient moreno aturated and required endotracheal intubation. An upper endoscopy was performed next, the oropharynx and esophagus appeared within the normal limits. There was no hiatal hernia. The z-line was smooth. Two biopsies were obtained from the distal esophagus 2-3 cm proximal to the GE junction and two additional biopsies from the GE junction. The stomach was entered and it appeared to be of normal size. There was no gastritis. There was no stricture or ulcer. A biopsy was obtained from the distal antrum. No significant bleeding was noted from any of the biopsy sites. Retroflexion of the stomach revealed normal GE junction anatomy. The scope was then advanced into the duodenum which appeared to be normal as well. At that point the duodenum ?and the stomach were decompressed and the scope was withdrawn from the patient's mouth. The patient extubated and was transferred in stable condition to the Recovery Room for further care. I was present and performed all steps of the procedure. There were no residents to assist with this case. Jorge L Palmer M.D., Ph.D. Surgeon: Elvis Palmer MD Anesthesia: MAC Was an Doctor Of Veterinary Medicine used for this Procedure?: No Estimated blood loss (mL): 0 IV fluids (mL): 400 Urine output (mL): 0 (No Koehler to record output) Pathology: other (1) antrum x1, 2) fundus x1, 3) GE junction x2, 4) distal esophagus x2) Condition: stable Disposition: PACU
[2023-07-09 13:54] VITALS: BP 125/83; PULSE 89; RESP 16; TEMP 36.6; O2SAT 100
[2023-07-09 14:09] VITALS: BP 117/84; PULSE 70; RESP 16; O2SAT 100
[2023-07-09 14:24] VITALS: BP 119/62; PULSE 87; RESP 16; TEMP 36.3; O2SAT 100
== END 2023-07-09 15:24 | disposition home or self-care (01) ==
PROVIDERS: Anesthesiology; PCP Internal Medicine; Visit Provider Surgery
PROC: 0DJ08ZZ Inspection of Upper Intestinal Tract, Via Natural or Artificial Opening Endoscopic (ICD-10-PCS; CPT 43235; principal; 2023-07-09 16:50)
DX: K21.9 Gastro-esophageal reflux disease without esophagitis (principal); E66.01 Morbid (severe) obesity due to excess calories; Z68.41 Body mass index [BMI] 40.0-44.9, adult; M06.9 Rheumatoid arthritis, unspecified; M79.18 Myalgia, other site; R91.8 Other nonspecific abnormal finding of lung field; R07.9 Chest pain, unspecified; J45.909 Unspecified asthma, uncomplicated; Z90.49 Acquired absence of other specified parts of digestive tract; Z98.890 Other specified postprocedural states; Z86.16 Personal history of COVID-19; Z87.891 Personal history of nicotine dependence
CPT/HCPCS: 43239; 81025; 88305; 88313; 88342; J2250; J2704

== ENCOUNTER → 2023-07-09 10:38 | Outpatient (BNV) | payer MEDICAID, SELFPAY | PROVIDERS: PCP Internal Medicine; Visit Provider Surgery | DX: K21.9 Gastro-esophageal reflux disease without esophagitis (principal) | CPT/HCPCS: 43239 ==

== ENCOUNTER → 2023-07-11 09:21 | Outpatient (BNVA) | payer MEDICAID, SELFPAY | PROVIDERS: PCP Internal Medicine; Visit Provider Physician Assistant ==

== ENCOUNTER → 2023-07-14 08:25 | Outpatient (REF) | payer MEDICAID, SELFPAY ==
--- NOTE | ~2023-07-14 | NM_ITS ---
Lexiscan Myocardial perfusion study Indication: Abnormal EKG, chest pain Technique: The patient was brought in for a Lexiscan perfusion study on 07/14/2023 and was injected 0.4 mg of Lexiscan intravenously. Within a minute of this injection 30 mCi of sestamibi was given intravenously. Images were obtained using the SPECT gamma camera interlaced with the gating device. Images were obtained in supine position. Resting perfusion study was performed on 07/15/2023. Patient was administered 30 mCi of sestamibi intravenously at rest. Images were then obtained in supine position. Images were processed with the software and compared side to side in short axis, horizontal long axis and vertical long axis views. Total DLP 177mGy-cm. Findings: Raw acquisition reviewed. The stress perfusion study showed no significant perfusion abnormality. Both uncorrected as well as CT attenuation corrected images were reviewed. The gated study shows diminished LV systolic function with calculated LVEF of 49%. LV cavity is normal in size. The gated study shows normal wall thickening and contraction of segments. Resting study shows no significant perfusion abnormality. Gating at rest reveals normal wall motion with ejection fraction at 48%. The findings are consistent with no clear reversible or fixed perfusion defects. NM/NM cardiolite stress test Impression: 1. Myocardial perfusion imaging study shows probably normal myocardial perfusion. 2. Gated LVEF is 49% during stress and 48% during rest. Correlate with echocardiogram. 3. Transient ischemic dilatation not present. EKG component of the test reported separately.
--- NOTE | 2023-07-14 08:28 | CA_ITS ---
Acquisition Time: 2023-07-14 08:28:56 Total Exercise Time: 00:02:00 Test Indications: ABN EKG, CP, SYNCOPE Medications: SEE H Protocol: LEXISCAN Max HR: 136 BPM 71% of Pred: 190 BPM Max BP: 116/070 mmHG Max Work Load: 1.6 METS Pharmaocloigcal stress test with Lexiscan injection while walking slowly on the treadmill, with mild SOB, with 8/10 mid chest pressure, without arrhythmias, with normotenisve response to injection, with nondiagnositic EKGs. Aminophylline 75mg IVP given to reverse Lexiscan. Chest pain resolved. Nuclear images pending. Test reviewed with Dr. Godinez Referred By: Shadi Godinez Overread By: Monika Mcmahon
== END ==
LOC: HO.CARD 08:25
PROVIDERS: PCP Internal Medicine; Visit Provider Internal Medicine Cardiovascular Disease
DX: R07.9 Chest pain, unspecified (principal); R55 Syncope and collapse; R94.31 Abnormal electrocardiogram [ECG] [EKG]
CPT/HCPCS: 78452; 93017; A9500; J0280; J2785

== ENCOUNTER → 2023-07-14 08:28 | Outpatient (BNV) | payer MEDICAID, SELFPAY | PROVIDERS: PCP Internal Medicine; Visit Provider Nurse Practitioner | DX: R07.9 Chest pain, unspecified (principal); R94.31 Abnormal electrocardiogram [ECG] [EKG] | CPT/HCPCS: 78452; 93016; 93018 ==

== ENCOUNTER 2023-07-16 08:25 | Outpatient (AMB) | payer MEDICAID, SELFPAY ==
--- NOTE | 2023-07-16 11:37 | A.OFFVIS_ITS ---
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* Allergies No Known Allergies Allergy (Verified 07/16/23 12:42) Medication List - Last Reconciled 07/16/23 by Elvis Palmer MD acetaminophen (Tylenol) 650 mg (2 x 325 mg) PO QID PRN Actemra ACTPen (tocilizumab) 162 mg (0.9 mL) subcut QWEEK NS albuterol sulfate 90 mcg/actuation (Ventolin HFA) 2 puffs inhalation Q4-6H PRN ibuprofen 600 mg PO Q6H PRN omeprazole 40 mg PO DAILY ondansetron 4 mg PO Q12H pantoprazole 40 mg PO DAILY polyethylene glycol 3350 (Miralax) 17 grams PO DAILY sucralfate 10 mL PO BID HPI TV 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 1pm-3pm 1 protein bar (Zone Perfect bars) at 4pm -6pm.Dinner at 6pm (7 forks of protein and 7 forks of salad/vegetables). 48 oz water daily PFSH Medical History Chest pain Anti-cardiolipin antibody positive Rash and other nonspecific skin eruption Hiatal hernia Pulmonary nodules Early stage of Obesity, morbid, BMI 40.0-49.9 Missed menses COVID-19 Asthma Rheumatoid arthritis Abnormal laboratory test Numbness in both hands Polyarthritis Myofascial pain syndrome Surgical History Hx of cholecystectomy H/O breast biopsy Hx of section H/O shoulder surgery Family History Maternal Grandmother Diabetes Father HTN (hypertension) Mother HTN (hypertension) Maternal Aunt Colon cancer Social History Alcohol intake: never Patient Tobacco Use Status: Former Tobacco user Tobacco use type: Cigarette Gender identity: Female Assessment & Plan Assessment & Plan (1) Morbid obesity: Code(s): E66.01 - Morbid (severe) obesity due to excess calories Plan: 1. Plan for lap sleeve gastrectomy including upper GI endoscopy. All tests has been completed and reviewed and the patient is cleared for the surgery. ?If diaphragmatic or ventral hernias are present at time of surgery, these will be repaired laparoscopically as well. 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 I emphasized the importance of close follow-up, adherence to instructions and good communication. So far she has proven to be an excellent communicator and very compliant with all our directions accomplishing a great weight loss. I believe that she is an excellent candidate and she is ready. 2. Preop prescriptions were provided and explained the purpose of each one. Need to be purchased preop. Start Pantoprazole now as you get it from the pharmacy, 1 pill per day. Sucralfate and Zofran are for after surgery as needed. 3. Bowel prep: please do 7 packets ?of Miralax mixing each one with a an 8oz glass of water, crystal light, gatorade zero, or propel ?on 07/20/23 and the same amount on 07/21/23. The Miralax you begin with one packet at a time in 8oz water or crystal light, gatorade zero, or propel ?as early in the day as you can and you do them back to back until you finish them. Continue the protein shakes during? the bowel prep. 4. Needs to purchase 1oz medicine cups . 5. Needs to purchase Children's liquid Tylenol for postop pain control. 6. She needs to stop the Ibuprofen as of today 07/15/23. Avoid aspirin, motrin, Advil, Aleve, Ibuprofen, Naproxyn. Tylenol is OK. 7. She needs to purchase the Celebrate 4:1 protein shakes from the hospital's gift shop. 8. Will do basic preop blood work-up any day between 07/17/23 and Friday07/18/23 fasting for 12 hours and is scheduled to see the Anesthesiologist prior to the day of surgery. 9. Importance of adherence to postop folllow-up and recommendations was underscored and she understands that. 10. Continue to avoid food and bars and continue with 4?Pure protein shakes (1/2 scoop in 8oz almond milk) at 10am-12pm, 1pm-3pm, 4pm-6pm and 7pm-9pm and one more Pure protein shake with ONE scoop in 8oz of almond milk at 9pm-11pm 11. No soups, broths or V8 12. The patient's?medical?history has been reviewed and they are considered low risk for post op DVT and therefore DVT prophylaxis is not considered necessary. Travel after surgery was reviewed. The patient has not disclosed any travel plans during the first 30 days after surgery and they have been advised that within the first 30 days after surgery any bus, plane, train or car travel over 2 hours in duration is contraindicated due to the possibility of developing blood clots from immobility. Any travel, needs to include periods of ambulation of 10 minutes in duration every 2 hours.? Patient was instructed to discuss any plans for travel during this period with their bariatric surgeon.? 13. Please take at the day of surgery the following medications: NONE the day of surgery 14. Stop any control pills and don't use them for one month after surgery 15. Absolutely no smoking or vaping, or marijuana until the surgery and for at least the first 4 weeks. Only nicotine patches are allowed. 16. Send me weight measurements on Friday07/18/23 and then on Friday07/22/23 the day of surgery before you go to the hospital. 17. Avoid any steroids by mouth for any reason. Let me know if someone prescribes them to you 18. These instructions supersede anything else you read in the handbook, anything you watched in videos or classes or you were told by any other provider. If there is any conflict, you follow the above instructions and nothing else. Orders: Orders TSH reflex Free T4 Today E66.01 - Morbid (severe) obesity due to excess calories Comprehensive Met. Panel Today E66.01 - Morbid (severe) obesity due to excess calories Type and Screen Today E66.01 - Morbid (severe) obesity due to excess calories C Reactive Protein Today E66.01 - Morbid (severe) obesity due to excess calories Insulin Today E66.01 - Morbid (severe) obesity due to excess calories Hemoglobin A1c Today E66.01 - Morbid (severe) obesity due to excess calories Prothrombin Time INR Today E66.01 - Morbid (severe) obesity due to excess calories Lipid Panel Today E66.01 - Morbid (severe) obesity due to excess calories Partial Thromboplastin Time Today E66.01 - Morbid (severe) obesity due to excess calories Complete Blood Count Auto Diff Today E66.01 - Morbid (severe) obesity due to excess calories Medications: New sucralfate 10 mL PO BID 600 mL 2RF K21.9 - Gastro-esophageal reflux disease without esophagitis ondansetron Use only if you have nausea 4 mg PO Q12H 20 tabs 0RF nausea and vomiting R11.0 - Nausea polyethylene glycol 3350 (Miralax) Mix each packet with 8oz of water, or Gatorade zero or crystal light and do 7 packets on 07/20/23 and another 7 packets on 07/21/23. 17 grams PO DAILY 14 ea 0RF Z01.818 - Encounter for other preprocedural examination pantoprazole 40 mg PO DAILY 90 tabs 0RF K21.9 - Gastro-esophageal reflux disease without esophagitis Telehealth Telehealth Location of provider rendering services: practice address Location of patient: address on file Patient Identification confirmed using: Name, : Yes Telehealth method: voice only Patient verbally consented to treatment: Yes Patient verbally consented to billing insurance company: Yes Patient informed of any privacy concerns related to visit: Yes Minutes spent on Phone/Video with Pt.: 30 Coding Level of Care Code Tele Est Pt Level 4 (48604) Diagnoses Morbid obesity E66.01 Time Spent (min) 30 Comment With a Mongolian speaking bowling ball grader and marker
[2023-07-16 11:38] VITALS: BMI 42.5
== END 2023-07-16 12:46 | disposition home or self-care (01) ==
LOC: HO.HBS 08:25
PROVIDERS: PCP Internal Medicine; Referring Provider Internal Medicine; Visit Provider Surgery
DX: E66.01 Morbid (severe) obesity due to excess calories (principal); Z68.41 Body mass index [BMI] 40.0-44.9, adult
CPT/HCPCS: 99499

== ENCOUNTER → 2023-07-16 08:25 | Outpatient (BNVA) | payer MEDICAID, SELFPAY | PROVIDERS: PCP Internal Medicine; Visit Provider Surgery ==

== ENCOUNTER → 2023-07-18 09:12 | Outpatient (BNVA) | payer MEDICAID, SELFPAY | PROVIDERS: PCP Internal Medicine; Visit Provider Physician Assistant Surgical ==

== ENCOUNTER 2023-07-22 06:00 | Inpatient (IN) | payer MEDICAID, SELFPAY ==
[2023-07-17 12:04] VITALS: BMI 37.4
[2023-07-18 09:13] LABS: MANUAL DIFF FLAG NO
[2023-07-18 09:26] LABS: Basophils Absolute Auto 0.1 X10*3/uL (0.0-0.2); Basophils Percent Auto 0.9 % (0-2); Eosinophils Absolute Auto 0.1 X10*3/uL (0.0-0.4); Eosinophils Percent Auto 1.3 % (0-4); Hematocrit 41.5 % (37.0-47.0); Hemoglobin 13.7 g/dl (12.0-16.0); Imm Gran Abs Auto 0.02 X10*3/uL (0.00-0.03); Imm Gran Pct Auto 0.4 % (0.0-0.4); Lymphocytes Absolute Auto 1.9 X10*3/uL (1.2-4.9); Lymphocytes Percent Auto 34.8 % (20-40); Mean Corpuscular Hemoglobin 27.4 pg (27.0-33.0); Mean Platelet Volume 11.1 fL (9.4-12.3); Monocytes Absolute Auto 0.4 X10*3/uL (0.1-1.2); Monocytes Percent Auto 7.5 % (2-11); Neutrophils Percent Auto 55.1 % (45-73); Platelet Count 217 X10*3/uL (160-400); Red Cell Distribution Width 14.5 % (11.0-16.0); White Blood Count 5.4 X10*3/uL (4.8-10.8)
[2023-07-18 09:28] LABS: Prothrombin Time 11.9 SEC (11.1-13.3)
[2023-07-18 09:30] LABS: Partial Thromboplastin Time 25.3 SEC (26.0-36.8)
[2023-07-18 09:32] LABS: Estimated Average Glucose 103 mg/dL; Hemoglobin A1c % 5.2 % (<6.0)
[2023-07-18 09:37] LABS: Alanine Aminotransferase 38 U/L (0-31); Albumin Level 4.5 g/dL (3.5-5.0); Alkaline Phosphatase 69 U/L (39-117); Anion Gap 13 (12-20); Aspartate Amino Transferase 27 U/L (5-31); Bilirubin Total 3.1 mg/dL (0.0-1.0); Blood Urea Nitrogen 9 mg/dL (9-16); C Reactive Protein < 0.10 mg/dL (< or = 0.50); Calcium 9.5 mg/dL (8.4-10.2); Carbon Dioxide 23 mmol/L (22-29); Chloride 109 mmol/L (96-108); Cholesterol 168 mg/dL (<200); Creatinine Clr Calc Pharmacy 106.2; Estimated Glomerular Filt Rate > 60; Glucose Random 98 mg/dL (60-115); HDL Cholesterol 38 mg/dL (>40); LDL Cholesterol Calculated 110 mg/dL (<100); Potassium 3.9 mmol/L (3.3-5.1); Sodium 141 mmol/L (135-145); Total Protein 7.3 g/dL (6.5-8.0); Triglycerides 100 mg/dL (<150)
[2023-07-18 09:51] LABS: Insulin 12 uU/mL (2-29); TSH reflex Free T4 0.76 uIU/mL (0.32-4.0)
--- NOTE | 2023-07-21 10:01 | P.CONAN_ITS ---
Documented by User: Davina Vaz NP 07/21/23 11:37 HPI - Anesthesia Eval Consult details Narrative: 28yo F for Gastrectomy Sleeve,EGD,possible diaphragmatic hernia,possible ventral hernia,possible open, [facility] [place] with atypical CP. Cardiac consult states unlikely ACS, but outpatient f/u with them. ECHO with low nml EF, stress likely nml. No further testing planned. Actemra for RA PMFSH Active Problems Active Problems: All Active Problems Morbid obesity (Acute) Fibromyalgia, primary (Acute) High risk medication use (Acute) GI bleed (Acute) Snoring (Acute) Vitamin D deficiency (Acute) Seropositive rheumatoid arthritis (Acute) Polyarthralgia (Acute) Anti-cardiolipin antibody positive (Acute) Rash and other nonspecific skin eruption (Acute) Numbness in both hands (Acute) Asthma (Acute) Hiatal hernia (Acute) Pulmonary nodules (Acute) Past Medical History Medical History Arthritis GERD (gastroesophageal reflux disease) Depression Anxiety HTN (hypertension) Syncope Anti-cardiolipin antibody positive Rash and other nonspecific skin eruption Hiatal hernia Pulmonary nodules Chest pain Early stage of Obesity, morbid, BMI 40.0-49.9 Missed menses COVID-19 Asthma Rheumatoid arthritis Abnormal laboratory test Numbness in both hands Polyarthritis Myofascial pain syndrome Family History Family History Maternal Grandmother Diabetes Father HTN (hypertension) Mother HTN (hypertension) Maternal Aunt Colon cancer Family history of problems with anesthesia: No Surgical History Surgical History Hx of elbow surgery H/O colonoscopy Hx of cholecystectomy H/O breast biopsy Hx of section History of Problems with Anesthesia: No Social History Social History Are you a primary career technology teacher to a significant other at home: No Do you presently have visiting nurse or other home services: No Alcohol intake: never Patient Tobacco Use Status: Former Tobacco user Tobacco use type: Cigarette Use of substances other than those prescribed or required for medical reasons: No Have you been hit, kicked, punched, or otherwise hurt by someone within the past year? If so, by whom?: No Are you DNR?: No Advance Directives: No Advance Directives Information Provided: No Advance Directives on File: No Recently lost weight without trying: No Eating poorly because of decreased appetite: No Nutrition Risks: No Nutritional Risk Patient : No : No Poor oral hygiene: No Gender identity: Female Meds Allergies Allergy/AdvReac Type Severity Reaction Status Date / Time No Known Allergies Allergy Verified 07/22/23 06:37 Home Medications ?Medication ?Instructions ?Recorded ?Confirmed ?Last Taken ?Type albuterol sulfate 90 mcg/actuation 2 puff inhalation Q4-6H PRN 12/23/22 07/17/23 Unknown History aerosol inhaler (Ventolin HFA) Wheezing lisinopril 10 1 tab PO QAM 07/17/23 Unknown History mg-hydrochlorothiazide 12.5 mg tablet Exam Height,Weight and Vital Signs: Height 5 ft 1 in Weight 89.811 kg Pertinent Lab Results Pertinent Lab Results: Laboratory Tests 07/18/23 07/18/23 09:05 09:11 WBC 5.4 RBC 5.00 Hgb 13.7 Hct 41.5 MCV 83.0 MCH 27.4 MCHC 33.0 RDW 14.5 Plt Count 217 MPV 11.1 Immature Gran % (Auto) 0.4 Neut % (Auto) 55.1 Lymph % (Auto) 34.8 Hudspeth % (Auto) 7.5 Eos % (Auto) 1.3 Baso % (Auto) 0.9 Lymph # (Auto) 1.9 Hudspeth # (Auto) 0.4 Eos # (Auto) 0.1 Baso # (Auto) 0.1 Abs Immat Gran (auto) 0.02 Absolute Neuts (auto) 3.0 Absolute Nucleated RBC 0.000 Nucleated RBC % (auto) 0.0 PT 11.9 INR 1.0 APTT 25.3 L D Sodium 141 Potassium 3.9 Chloride 109 H Carbon Dioxide 23 Anion Gap 13 BUN 9 Creatinine 0.79 Estim Creat Clear Calc 106.2 Estimated GFR > 60 Random Glucose 98 Estimat Average Glucose 103 Hemoglobin A1c % 5.2 Insulin Level 12 Calcium 9.5 Total Bilirubin 3.1 H AST 27 ALT 38 H Alkaline Phosphatase 69 C-Reactive Protein < 0.10 Total Protein 7.3 Albumin 4.5 Triglycerides 100 Cholesterol 168 LDL Cholesterol, Calc 110 H HDL Cholesterol 38 L TSH 0.76 Blood Type O Positive Antibody Screen NEGATIVE Narrative Narrative: EKG 06/2023 Vent. Rate : 066 BPM Atrial Rate : 066 BPM P-R Int : 134 ms QRS Dur : 078 ms QT Int : 392 ms P-R-T Axes : 043 005 001 degrees QTc Int : 410 ms Normal sinus rhythm Nonspecific T wave abnormality Abnormal ECG When compared with ECG of 23-JUN-2023 17:56, No significant change was found ECHO 06/2023 Conclusions: - Low normal LV ejection fraction at 50-55% otherwise normal study NM cardiolite stress test 07/2023 Impression: 1. Myocardial perfusion imaging study shows probably normal myocardial perfusion. 2. Gated LVEF is 49% during stress and 48% during rest. Correlate with echocardiogram. 3. Transient ischemic dilatation not present. EKG component of the test reported separately. Assessment and Plan Assessment Anesthesia Assessment: Chart Reviewed Final Anesthetic Review Family History of Problems with Anesthesia: No History of Problems with Anesthesia: No Documented by User: Lc Lopez MD 07/22/23 07:33 [facility] Past Medical History Medical History Arthritis GERD (gastroesophageal reflux disease) Depression Anxiety HTN (hypertension) Syncope Anti-cardiolipin antibody positive Rash and other nonspecific skin eruption Hiatal hernia Pulmonary nodules Chest pain Early stage of Obesity, morbid, BMI 40.0-49.9 Missed menses COVID-19 Asthma Rheumatoid arthritis Abnormal laboratory test Numbness in both hands Polyarthritis Myofascial pain syndrome Family History Family History Maternal Grandmother Diabetes Father HTN (hypertension) Mother HTN (hypertension) Maternal Aunt Colon cancer Surgical History Surgical History Hx of elbow surgery H/O colonoscopy Hx of cholecystectomy H/O breast biopsy Hx of section Social History Social History Are you a primary career technology teacher to a significant other at home: No Do you presently have visiting nurse or other home services: No Alcohol intake: never Patient Tobacco Use Status: Former Tobacco user Tobacco use type: Cigarette Use of substances other than those prescribed or required for medical reasons: No Have you been hit, kicked, punched, or otherwise hurt by someone within the past year? If so, by whom?: No Are you DNR?: No Advance Directives: No Advance Directives Information Provided: No Advance Directives on File: No Recently lost weight without trying: No Eating poorly because of decreased appetite: No Nutrition Risks: No Nutritional Risk Patient : No : No Poor oral hygiene: No Gender identity: Female Meds Allergies Allergy/AdvReac Type Severity Reaction Status Date / Time No Known Allergies Allergy Verified 07/22/23 06:37 Home Medications ?Medication ?Instructions ?Recorded ?Confirmed ?Last Taken ?Type albuterol sulfate 90 mcg/actuation 2 puff inhalation Q4-6H PRN 12/23/22 07/17/23 Unknown History aerosol inhaler (Ventolin HFA) Wheezing lisinopril 10 1 tab PO QAM 07/17/23 Unknown History mg-hydrochlorothiazide 12.5 mg tablet Exam Airway Mallampati Class: III TM Dist: <=3cm Neck ROM: Full Loose/Missing/Broken Teeth: Yes (10) and No Heart: rrr Lungs: cta but distant Assessment and Plan Assessment Anesthesia Assessment: Anesthesia Plan Discussed Final Anesthetic Review NPO: Yes ASA Class: III Final Preanesthetic Review: No Changes in Pt Med Stat, Meds/Allgs Chart Reviewed, Consent Obtained/Reviewed and Anes Risks/Benef Reviewed Patient Risk: Intermediate Procedure Risk: Intermediate Anesthetic Plan Anesthetic Plan: GA Disposition: Standard PACU
[2023-07-22] VITALS (15 sets, daily range): BP systolic 120–167; BP diastolic 77–109; PULSE 63–95; RESP 11–18; TEMP 36–36.9; O2SAT 96–100; BMI 41.2; BMI 45.4
--- OUTSIDE RECORDS SUMMARY | 2023-07-22 06:04 | XMS_ITS | Continuity of Care Document ---
Author Organization [facility] ter Address [address] [place] [id number]- Care Team Providers Care Leather Sorter Name Role Phone Not on Staff, PCP Primary Care Physician Unavail able Encounter [facility] [place] Date(s): 10/07/21 - 10/07/[address] [address]- Discharge Disposition: Transferred to an intermediate care faci Attending Physician: Reji Bae MD Admitting Physician: Reji Bae MD Referring Physician: Not on Staff, Referring MD Allergies, Adverse Reactions, Alerts No Known Allergies Problem List Condition Effective Dates Status Health Status Inform ant Severe obesity(Confirmed) Active Vital Signs Most recent to oldest [Reference Range]: 1 2 Height 154 cm (10/07/21 10:46 AM) 154 cm (10/07/21 9:58 AM) Weight 100 kg (10/07/21 10:46 AM) 100 kg (10/07/21 9:58 AM) Oxygen Saturation [94-100 %] 100 % (10/07/21 9:58 AM) 100 % (10/07/21 9:54 AM) Pulse Rate [55-90 bpm] 84 bpm (10/07/21 9:58 AM) 100 bpm *H* (10/07/21 9:54 AM) Body Mass Index [18.5-24.99] 42.17 *>HHI* (10/07/21 9:58 AM) Blood Pressure [90-138/55-84 mm Hg] 129/ 80mm Hg (10/07/21 9:58 AM) Respiratory Rate [16-30 br/min] 16 br/mi n (10/07/21 9:58 AM) Temperature [96.8-100.4 DegF] 98.2 DegF (10/07/21 9:58 AM) Mode of Delivery (Oxygen) Room air (10/07/21 9:58 AM) Room air (10/07/21 9:54 AM) Blood pressure sites Arm, left (10/07/21 9:58 AM) Temperature Route Oral (10/07/21 9:58 AM) Dry Weight 100 kg (10/07/21 10:46 AM) 100 kg (10/07/21 9:58 AM) Weight Obtained Via Patient/family state d (10/07/21 9:58 AM) Dry Weight Obtained Via Patient/family s tated (10/07/21 9:58 AM)
--- OUTSIDE RECORDS SUMMARY | 2023-07-22 06:04 | XMS_ITS | Continuity of Care Document ---
Author Organization [facility] Address [address] [place] [id number]- Care Team Providers Care Drink Box Mechanic Name Role Phone Not on Staff, PCP Primary Care Physician Unavail able Encounter [facility] [place] Date(s): 01/18/23 - 01/18/[address] [address]- Encounter Diagnosis Diffuse joint pain(Final) - 01/18/23 Discharge Disposition: A-D/C Home Attending Physician: Olag Zelaya MD Admitting Physician: Olga Zelaya MD Referring Physician: Not on Staff, Referring MD Allergies, Adverse Reactions, Alerts No Known Allergies Medications indomethacin 25 mg oral capsule 2 capsule = 50 mg, By Mouth, 3 times a day, PRN for arthritis, # 30 capsule, 0 Refills, Maintenance, 07/14/22 13:23:00 EDT, Capsule, [facility], Partial fill upon patient request if the prescription is for a schedule II opioid drug... Start Date: 07/14/22 Stop Date: 07/19/22 Status: Ordered ondansetron 4 mg oral tablet, disintegrating 1 tablet = 4 mg, By Mouth, Every 8 hours, PRN as needed for nausea/vomiting, # 10 tablet, 0 Refills, Maintenance, 07/14/22 13:24:00 EDT, DIS Tablet, [facility], Partial fill upon patient request if the prescription is for a schedul... Start Date: 07/14/22 Stop Date: 07/17/22 Status: Ordered ZyrTEC 10 mg oral tablet 1 tablet = 10 mg, By Mouth, Daily, may take an additional dose at nighttime for severe itch, # 14 tablet, 0 Refills, Maintenance, 12/15/22 14:04:00 EDT, Tablet, [facility], Partial fill upon patient request if the prescription is f... Start Date: 12/15/22 Stop Date: 12/22/22 Status: Ordered Problem List Condition Confirmation Course Effective Dates Status Health St atus Informant Severe obesity Confirmed Active Vital Signs Most recent to oldest [Reference Range]: 1 2 Height 155 cm (01/18/23 6:13 PM) 155 cm (01/18/23 1:14 PM) Oxygen Saturation [94-100 %] 100 % (01/18/23 6:13 PM) 100 % (01/18/23 1:14 PM) Pulse Rate [55-90 bpm] 65 bpm (01/18/23 6:13 PM) 87 bpm (01/18/23 1:14 PM) Blood Pressure [90-138/55-84 mm Hg] 154/ 85mm Hg *H* (01/18/23 6:13 PM) 133/87mm Hg (01/18/23 1:14 PM) Respiratory Rate [16-30 br/min] 16 br/mi n (01/18/23 6:13 PM) 18 br/min (01/18/23 1:14 PM) Temperature [96.8-100.4 DegF] 98.4 DegF (01/18/23 6:13 PM) 98.2 DegF (01/18/23 1:14 PM) Mode of Delivery (Oxygen) Room air (01/18/23 6:13 PM) Room air (01/18/23 1:14 PM) Blood pressure sites Arm, right (01/18/23 1:14 PM) Temperature Route Oral (01/18/23 6:13 PM) Oral (01/18/23 1:14 PM) Dry Weight 100 kg (01/18/23 6:13 PM) 100 kg (01/18/23 1:14 PM) Social History Social History Type Response Smoking Status Never (less than 100 in lifetime) entered on: 11/25/21 Sex Patient Care team information Care Team Personnel Name: Not on Staff, PCP Position: [facility] Physician (General Medicine) Member Role: PCP Name: Olga Zelaya MD Position: [facility] ED Medicine MD Member Role: Admitting Physician Address: Address: [address] [place] [address] [place], [place] [address] Name: Mike Jimenez RN Position: [facility] ED RN W/OE and Tasks Member Role: Patient Care Provider Name: Juan Carlos Gutierrez Position: S Associate Professional Member Role: ED Physician Animal Shelter Supervisor Address: Address: [address] [place] [address] [place] [address]- Care Team Related Persons Name: SATINDER ESTEVEZ Address: home [address] [address] Name: DORITA PAULINO Address: home [address] [place] [address]
--- OUTSIDE RECORDS SUMMARY | 2023-07-22 06:04 | XMS_ITS | Continuity of Care Document ---
Author Organization [facility] Address [address] [place] [id number]- Care Team Providers Care Milling/Polishing Operator Name Role Phone Yanira Main MD, Marzena Wiseman Primary Care Physici an [place] [facility] [place](s): 11/25/21 - 11/25/[address] [address]- Discharge Disposition: A-D/C Walkout Attending Physician: Not on Staff, Attending MD Admitting Physician: Not on Staff, Admitting MD Referring Physician: Not on Staff, Referring MD Allergies, Adverse Reactions, Alerts No Known Allergies Problem List Condition Effective Dates Status Health Status Inform ant Severe obesity(Confirmed) Active Vital Signs Most recent to oldest [Reference Range]: 1 2 3 Height 155 cm (11/25/21 3:05 PM) 155 cm (11/25/21 1:48 PM) Weight 100 kg (11/25/21 3:05 PM) 100 kg (11/25/21 1:48 PM) Oxygen Saturation [94-100 %] 99 % (11/25/21 4:08 PM) 97 % (11/25/21 1:48 PM) 97 % (11/25/21 1:39 PM) Pulse Rate [55-90 bpm] 72 bpm (11/25/21 4:08 PM) 88 bpm (11/25/21 1:48 PM) 104 bpm *H* (11/25/21 1:39 PM) Body Mass Index [18.5-24.99] 41.62 *>HHI* (11/25/21 1:48 PM) Blood Pressure [90-138/55-84 mm Hg] 113/86mm Hg (11/25/21 4:08 PM) 140/89mm Hg *H* (11/25/21 1:48 PM) Respiratory Rate [16-30 br/min] 16 br/min (11/25/21 1:48 PM) Temperature [96.8-100.4 DegF] 98.1 DegF (11/25/21 4:08 PM) 98.7 DegF (11/25/21 1:48 PM) Mode of Delivery (Oxygen) Room air (11/25/21 4:08 PM) Room air (11/25/21 1:48 PM) Room air (11/25/21 1:39 PM) Blood pressure sites Arm, left (11/25/21 4:08 PM) Arm, left (11/25/21 1:48 PM) Temperature Route Oral (11/25/21 4:08 PM) Oral (11/25/21 1:48 PM) Dry Weight 100 kg (11/25/21 3:05 PM) Weight Obtained Via Patient/family state d (11/25/21 1:48 PM) Dry Weight Obtained Via Patient/family s tated (11/25/21 3:05 PM) Social History Social History Type Response Smoking Status Never (less than 100 in lifetime) entered on: 11/25/21 Sex
--- OUTSIDE RECORDS SUMMARY | 2023-07-22 06:05 | XMS_ITS | Continuity of Care Document ---
Author Organization [facility] ter Address [address] [place] [id number]- Care Team Providers Care Operator Supply Name Role Phone Yanira Main MD, Marzena Wiseman Primary Care Physici an Encounter [facility] [place] Date(s): 10/11/21 - 10/11/[address] [address]- Encounter Diagnosis Abdominal pain(Final) - 10/11/21 Discharge Disposition: A-D/C Home Attending Physician: Alberto Sterling MD Admitting Physician: Alberto Sterling MD Referring Physician: Not on Staff, Referring MD Allergies, Adverse Reactions, Alerts No Known Allergies Medications morphine 15 mg oral tablet, immediate release 1 tablet = 15 mg, By Mouth, Every 6 hours, PRN for pain, for 3 days, # 7 tablet, 0 Refills, Acute 10/14/21 22:43:00 EDT, 10/11/21 22:43:00 EDT, Tablet, [facility], Partial fill upon patient request if the prescription is for a sche... Start Date: 10/11/21 Stop Date: 10/14/21 Status: Ordered OxyCODONE IR Tablet 5 mg, Tablet, By Mouth, Once, STAT, 10/11/21 20:53:00 EDT, Stop date 10/11/21 20:53:00 EDT Start Date: 10/11/21 Stop Date: 10/11/21 Status: Completed Problem List Condition Effective Dates Status Health Status Inform ant Severe obesity(Confirmed) Active Vital Signs Most recent to oldest [Reference Range]: 1 2 3 Oxygen Saturation [94-100 %] 99 % (10/11/21 8:30 PM) 100 % (10/11/21 7:22 PM) 98 % (10/11/21 4:55 PM) Pulse Rate [55-90 bpm] 80 bpm (10/11/21 8:30 PM) 83 bpm (10/11/21 7:22 PM) 90 bpm (10/11/21 4:55 PM) Blood Pressure [90-138/55-84 mm Hg] 140/85mm Hg *H* (10/11/21 8:30 PM) 130/84mm Hg (10/11/21 7:22 PM) 134/82mm Hg (10/11/21 4:55 PM) Respiratory Rate [16-30 br/min] 18 br/min (10/11/21 9:33 PM) 16 br/min (10/11/21 8:30 PM) 16 br/min (10/11/21 4:55 PM) Temperature [96.8-100.4 DegF] 98.0 DegF (10/11/21 8:30 PM) 97.9 DegF (10/11/21 7:22 PM) 97.9 DegF (10/11/21 4:55 PM) Mode of Delivery (Oxygen) Room air (10/11/21 8:30 PM) Room air (10/11/21 7:22 PM) Room air (10/11/21 4:55 PM) Blood pressure sites Arm, right (10/11/21 8:30 PM) Arm, right (10/11/21 7:22 PM) Temperature Route Oral (10/11/21 8:30 PM) Oral (10/11/21 7:22 PM) Oral (10/11/21 4:55 PM)
--- OUTSIDE RECORDS SUMMARY | 2023-07-22 06:05 | XMS_ITS | Continuity of Care Document ---
Author Organization [facility] ter Address [address] [place] [address]- Care Team Providers Care Technology Lead Name Role Phone Not on Staff, PCP Primary Care Physician Unavail able Encounter [facility] [place] Date(s): 10/07/21 - 10/07/[address] [address] Discharge Disposition: A-D/C Home Attending Physician: Salima Cheng MD Admitting Physician: Salima Cheng MD Referring Physician: Salima Cheng MD Allergies, Adverse Reactions, Alerts No Known Allergies Medications MorPHINE Inj 4 mg, Injection, IV Push Slowly, Once, STAT, 10/07/21 15:55:00 EDT, Stop date 10/07/21 15:55:00 EDT Start Date: 10/07/21 Stop Date: 10/07/21 Status: Completed Problem List Condition Effective Dates Status Health Status Inform ant Severe obesity(Confirmed) Active Vital Signs Most recent to oldest [Reference Range]: 1 2 3 Weight 113.0 kg (10/07/21 11:46 AM) Oxygen Saturation [94-100 %] 100 % (10/07/21 4:38 PM) 100 % (10/07/21 11:46 AM) Pulse Rate [55-90 bpm] 77 bpm (10/07/21 4:38 PM) 85 bpm (10/07/21 11:46 AM) Blood Pressure [90-138/55-84 mm Hg] 104/64mm Hg (10/07/21 4:38 PM) 115/74mm Hg (10/07/21 11:46 AM) Respiratory Rate [16-30 br/min] 20 br/min (10/07/21 4:38 PM) 18 br/min (10/07/21 4:08 PM) 16 br/min (10/07/21 11:46 AM) Temperature [96.8-100.4 DegF] 98.4 DegF (10/07/21 4:38 PM) 97.6 DegF (10/07/21 11:46 AM) Mode of Delivery (Oxygen) Room air (10/07/21 11:46 AM) Blood pressure sites Arm, left (10/07/21 11:46 AM) Temperature Route Oral (10/07/21 4:38 PM) Oral (10/07/21 11:46 AM) Weight Obtained Via Standing scale (10/07/21 11:46 AM)
--- OUTSIDE RECORDS SUMMARY | 2023-07-22 06:05 | XMS_ITS | Continuity of Care Document ---
Author Organization [facility] Address [address] [place] [phone]- Care Team Providers Care Opto Mechanical Technician Name Role Phone Not on Staff, PCP Primary Care Physician Unavail able Encounter [facility] [place] Date(s): 12/15/22 - 12/15/[address] [address]- Discharge Disposition: A-D/C Home Attending Physician: Ean Bragg DO Admitting Physician: Ean Bragg DO Referring Physician: Not on Staff, Referring MD Allergies, Adverse Reactions, Alerts No Known Allergies Medications indomethacin 25 mg oral capsule 2 capsule = 50 mg, By Mouth, 3 times a day, PRN for arthritis, # 30 capsule, 0 Refills, Maintenance, 07/14/22 13:23:00 EDT, Capsule, [facility], Partial fill upon patient request if the prescription is for a schedule II opioid drug... Start Date: 07/14/22 Stop Date: 07/19/22 Status: Ordered ondansetron 4 mg oral tablet, disintegrating 1 tablet = 4 mg, By Mouth, Every 8 hours, PRN as needed for nausea/vomiting, # 10 tablet, 0 Refills, Maintenance, 07/14/22 13:24:00 EDT, DIS Tablet, [facility], Partial fill upon patient request if the prescription is for a schedul... Start Date: 07/14/22 Stop Date: 07/17/22 Status: Ordered ZyrTEC 10 mg oral tablet 1 tablet = 10 mg, By Mouth, Daily, may take an additional dose at nighttime for severe itch, # 14 tablet, 0 Refills, Maintenance, 12/15/22 14:04:00 EDT, Tablet, [facility], Partial fill upon patient request if the prescription is f... Start Date: 12/15/22 Stop Date: 12/22/22 Status: Ordered Problem List Condition Confirmation Course Effective Dates Status Health St atus Informant Severe obesity Confirmed Active Results Radiology Reports * Exam Date Time Procedure Performing Provider Status 12/15/22 1:03 PM Chest 2 Views Frontal and Lat Connor Grimes; Deon (Verified) Notes: (Chest 2 Views Frontal and Lat) Reason For Exam: Angina RESULT: Chest 2 Views Frontal and Lat Chest 2 Views Frontal and Lat Hx of Present Illness: reports body joint pain as well as chest pain, [place] speaking only, well appearing, ambulatory with steady gait; Reason: Angina; Clinical Question(s): Pneumonia COMPARISON: None. FINDINGS: LINES AND TUBES: None. LUNGS AND PLEURA: Clear lungs. Normal pulmonary vascularity. No pleural effusion. No pneumothorax. HEART, MEDIASTINUM AND YOAN: Heart is normal in size. Normal mediastinal and hilar contour. BONES AND SOFT TISSUES: No acute abnormality. IMPRESSION: No acute abnormality. WSN: [id number] Ordering Physician: Jocelin Mariscal Dictated By: Dinesh Bryan MD Dictated Date/Time: 12/15/22 1:05 pm Reviewed By: Dinesh Bryan MD Signed By: Dinesh Bryan MD Signed Date/Time: 12/15/22 1:05 pm Transcribed By: MICHELLE Transcribed Date/Time: 12/15/22 1:05 pm Vital Signs Most recent to oldest [Reference Range]: 1 2 3 Height 155 cm (12/15/22 2:09 PM) 155 cm (12/15/22 12:36 PM) 155 cm (12/15/22 11:18 AM) Oxygen Saturation [94-100 %] 100 % (12/15/22 2:09 PM) 100 % (12/15/22 11:18 AM) Pulse Rate [55-90 bpm] 67 bpm (12/15/22 2:09 PM) 88 bpm (12/15/22 11:18 AM) Blood Pressure [90-138/55-84 mm Hg] 120/71mm Hg (12/15/22 2:09 PM) 130/73mm Hg (12/15/22 11:18 AM) Respiratory Rate [16-30 br/min] 18 br/min (12/15/22 2:09 PM) 16 br/min (12/15/22 11:18 AM) Temperature [96.8-100.4 DegF] 98.3 DegF (12/15/22 11:18 AM) Mode of Delivery (Oxygen) Room air (12/15/22 2:09 PM) Room air (12/15/22 11:18 AM) Blood pressure sites Arm, left (12/15/22 2:09 PM) Arm, right (12/15/22 11:18 AM) Temperature Route Oral (12/15/22 11:18 AM) Dry Weight 102.3 kg (12/15/22 2:09 PM) 102.3 kg (12/15/22 12:36 PM) 102.3 kg (12/15/22 11:18 AM) Dry Weight Obtained Via Patient/family s tated (12/15/22 11:18 AM) Social History Social History Type Response Smoking Status Never (less than 100 in lifetime) entered on: 11/25/21 Sex Note * Loida MCPHERSON, Jocelin Rodriguez: PERFORM Event Display: Patient Education Leaflets Authored Date: [id number] Myalgias ?? [id number] Mialgias Mialgia es otra forma de referirse al dolor muscular.??No es jeanette enfermedad, sino un s??ntoma.??Lasmialgias pueden tener muchas causas.??Por ejemplo, un resfriado, la fiebre, la gripe o jeanette infecci??n.??Pueden aparecer despu??s de hacer ejercicio intenso o de jeanette lesi??n, joe en el mitch de un accidente o de jeanette ca??da.??Algunos medicamentos, joe las estatinas, ciertos antidepresivos y los tratamientos para el c??ncer pueden causar mialgias.??Tambi??n pueden ser un s??ntoma de problemas de sandip de marli plazo (cr??nicos), joe el c??ncer, el lupus, la fatiga cr??nissa, la artritis reumatoide o el hipotiroidismo. Estas enfermedades normalmente causan otros s??ntomas graves adem??s del dolor y la sensibilidad muscular. Las mialgias suelen desaparecer por s?? solas. Si no lo hacen o si son recurrentes o intensas, es posible que necesite hacerse pruebas y an??lisis para encontrar la causa. Cuidados en el hogar ??? Descanse hasta que se sienta mejor. ??? Siga las instrucciones que le hayan dado sobre c??mo cuidarse. Eso puede depender de la causa de las mialgias. ??? Si se storm que la mialgia se debe a un medicamento, hable con el proveedor de atenci??n m??dica que le recet?? el medicamento para lester qu?? opciones tiene. ??? Para controlar el dolor, tome medicamentos recetados o de venta fercho seg??n le hayan indicado. A menos que le indiquen no hacerlo, puede probar con paracetamol o ibuprofeno. ?? Atenci??n de seguimiento Asista a las visitas de seguimiento con el proveedor de atenci??n m??dica seg??n le hayan indicado.Si los s??ntomas no desaparecen en unos pocos d??as o si regresan, programe jeanette visita de seguimiento con el proveedor para hacerse un examen y pruebas. ?? Cu??ndo debe buscar atenci??n m??dica Llame de inmediato a russo proveedor de atenci??n m??dica en cualquiera de los siguientes casos: ??? Fiebre de 100.4?F (38?C) o superior, o seg??n le haya indicado el proveedor ??? Dolor que empeora o que desaparece y regresa ??? Reshma nuevos en las articulaciones ??? Sarpullido nuevo ??? Dolor de umu intenso, dolor de carmen, somnolencia o confusi??n ?? Last Reviewed Date: 2021 ?? [id number] The dot[employer]. Todos los derechos reservados. Esta informaci??n no pretende sustituir la atenci??n m??dica profesional. S??lo russo m??dico puede diagnosticar y tratar un problema de sandip. ?? Patient Care team information Care Team Personnel Name: Not on Staff, PCP Position: [facility] Physician (General Medicine) Member Role: PCP Name: Jocelin Duran Position: [facility] Associate Professional Member Role: ED Physician Crab Picker Address: Address: [address] [place] [phone]- Name: Tia Lindo Position: [facility] ED [facility] Member Role: Boiler House Mechanic Name: Ean Bragg DO Position: [facility] Resident Member Role: Admitting Physician Address: Address: [address] [place] [phone]- Name: Nidia Friedman RN Position: [facility] ED RN W/OE and Tasks Member Role: Patient Care Provider Care Team Related Persons Name: SATINDER ESTEVEZ Address: home [address] [address] Name: DORITA PAULINO Address: home [address] [place] [id number]
--- OUTSIDE RECORDS SUMMARY | 2023-07-22 06:05 | XMS_ITS | Continuity of Care Document ---
Author Organization [facility] Address [address] [place] [id number]- Care Team Providers Care Manager Mac Name Role Phone Yanira Main MD, Marzena Wiseman Primary Care Physici an Encounter [facility] Date(s): 07/14/22 - 07/14/[address] [address]- Encounter Diagnosis Gout(Final) - 07/14/22 Discharge Disposition: A-D/C Home Attending Physician: Ledy Reyez MD Admitting Physician: Ledy Reyez MD Referring Physician: Not on Staff, Referring MD Allergies, Adverse Reactions, Alerts No Known Allergies Medications indomethacin 25 mg oral capsule 2 capsule = 50 mg, By Mouth, 3 times a day, PRN for arthritis, # 30 capsule, 0 Refills, Maintenance, 07/14/22 13:23:00 EDT, Capsule, [facility], Partial fill upon patient request if the prescription is for a schedule II opioid drug... Start Date: 07/14/22 Stop Date: 07/19/22 Status: Ordered ondansetron 4 mg oral tablet, disintegrating 1 tablet = 4 mg, By Mouth, Every 8 hours, PRN as needed for nausea/vomiting, # 10 tablet, 0 Refills, Maintenance, 07/14/22 13:24:00 EDT, DIS Tablet, [facility], Partial fill upon patient request if the prescription is for a schedul... Start Date: 07/14/22 Stop Date: 07/17/22 Status: Ordered Problem List Condition Confirmation Course Effective Dates Status Health St atus Informant Severe obesity Confirmed Active Results Radiology Reports * Exam Date Time Procedure Performing Provider Status 07/14/22 12:47 PM Foot Min 3 Views Left Lillian Guillory ; Auth (Verified) Notes: (Foot Min 3 Views Left) Reason For Exam: with Pain;Trauma RESULT: Foot Min 3 Views Left Foot Min 3 Views Left, 3 views Hx of Present Illness: HTN CP; Reason: Trauma; with Pain; Clinical Question(s): Fracture COMPARISON: None. FINDINGS: No fractures or bone lesions. Joint spaces appear maintained. There is enthesopathy at the attachment of the Achilles tendon. There is soft tissue swelling in the forefoot. IMPRESSION: Soft tissue swelling in the forefoot with no acute displaced fracture. WSN: [id number] Ordering Physician: Iesha Castillo Dictated By: Samira Spann MD Dictated Date/Time: 07/14/22 12:49 p Reviewed By: Samira Spann MD Signed By: Samira Spann MD Signed Date/Time: 07/14/22 12:49 pm Transcribed By: MICHELLE Transcribed Date/Time: 07/14/22 12:48 pm * Exam Date Time Procedure Performing Provider Status 07/14/22 10:46 AM Chest 2 Views Frontal and Lat Zebian , Luana; Auth (Verified) Notes: (Chest 2 Views Frontal and Lat) Reason For Exam: Chest Pain;Other: RESULT: Chest 2 Views Frontal and Lat Chest 2 Views Frontal and Lat Hx of Present Illness: HTN CP; Reason: Other:; Chest Pain; Clinical Question(s): Other: COMPARISON: Chest x-rays dated 07/12/2022 and 02/23/2022 FINDINGS: LINES AND TUBES: None. LUNGS AND PLEURA: Clear lungs. Normal pulmonary vascularity. No pleural effusion. No pneumothorax. HEART, MEDIASTINUM AND YOAN: Heart is normal in size. Normal mediastinal and hilar contour. BONES AND SOFT TISSUES: No acute abnormality. IMPRESSION: No acute abnormality. WSN: [id number] Ordering Physician: Ledy Reyez Dictated By: Samira Spann MD Dictated Date/Time: 07/14/22 11:18 a Reviewed By: Samira Spann MD Signed By: Samira Spann MD Signed Date/Time: 07/14/22 11:18 am Transcribed By: MICHELLE Transcribed Date/Time: 07/14/22 11:18 am Vital Signs Most recent to oldest [Reference Range]: 1 2 3 Height 157 cm (07/14/22 2:15 PM) 157 cm (07/14/22: AM) 157 cm (07/14/22 10:26 AM) Weight 100 kg (07/14/22 2:15 PM) 100 kg (07/14/22: AM) 100 kg (07/14/22:26 AM) Oxygen Saturation [94-100 %] 100 % (07/14/22 2:15 PM) 100 % (07/14/22: AM) 100 % (07/14/22:07 AM) Pulse Rate [55-90 bpm] 76 bpm (07/14/22 2:15 PM) 84 bpm (07/14/22: AM) 82 bpm (07/14/22:07 AM) Body Mass Index [18.5-24.99 kg/m2] 40.57 kg/m2 *>HHI* (07/14/22: AM) 40.57 kg/m2 *>HHI* (07/14/22:07 AM) Blood Pressure [90-138/55-84 mm Hg] 114/95mm Hg (07/14/22 2:15 PM) 121/77mm Hg (07/14/22: AM) 125/89mm Hg (07/14/22 10:07 AM) Respiratory Rate [16-30 br/min] 16 br/min (07/14/22 2:15 PM) 19 br/min (07/14/22: AM) 18 br/min (07/14/22 10:07 AM) Temperature [96.8-100.4 DegF] 98.5 DegF (07/14/22: AM) 98.1 DegF (07/14/22:07 AM) Mode of Delivery (Oxygen) Room air (07/14/22 2:15 PM) Room air (07/14/22: AM) Room air (07/14/22 10:07 AM) Blood pressure sites Arm, right (07/14/22: AM) Arm, left (07/14/22 10:07 AM) Temperature Route Oral (07/14/22 11:33 AM) Oral (07/14/22 10:07 AM) Dry Weight 100 kg (07/14/22 2:15 PM) 100 kg (4/2/23 11:33 AM) 100 kg (07/14/22 10:26 AM) Weight Obtained Via Patient/family state d (07/14/22 10:07 AM) Dry Weight Obtained Via Patient/family s tated (07/14/22 10:07 AM) Social History Social History Type Response Smoking Status Never (less than 100 in lifetime) entered on: 11/25/21 Sex Note * RIANNA Hopkins S: TRANSCRISamira Kim MD: VERIFY Event Display: Result: Authored Date: [id number] Chest 2 Views Frontal and Lat Hx of Present Illness: HTN CP; Reason: Other:; Chest Pain; Clinical Question(s): Other: COMPARISON: Chest x-rays dated 07/12/2022 and 02/23/2022 FINDINGS: LINES AND TUBES: None. LUNGS AND PLEURA: Clear lungs. Normal pulmonary vascularity. No pleural effusion. No pneumothorax. HEART, MEDIASTINUM AND YOAN: Heart is normal in size. Normal mediastinal and hilar contour. BONES AND SOFT TISSUES: No acute abnormality. IMPRESSION: No acute abnormality. WSN: [id number] Ordering Physician: Ledy Reyez Dictated By: Samira Spann MD Dictated Date/Time: 07/14/22 11:18 a Reviewed By: Samira Spann MD Signed By: Samira Spann MD Signed Date/Time: 07/14/22 11:18 am Transcribed By: MICHELLE Transcribed Date/Time: 07/14/22 11:18 am XR Foot - left GE 3 Views * RIANNA Hopkins S: TRANSCRISamira Kim MD: VERIFY Event Display: Result: Authored Date: [id number] Foot Min 3 Views Left, 3 views Hx of Present Illness: HTN CP; Reason: Trauma; with Pain; Clinical Question(s): Fracture COMPARISON: None. FINDINGS: No fractures or bone lesions. Joint spaces appear maintained. There is enthesopathy at the attachment of the Achilles tendon. There is soft tissue swelling in the forefoot. IMPRESSION: Soft tissue swelling in the forefoot with no acute displaced fracture. WSN: [id number] Ordering Physician: Iesha Castillo Dictated By: Samira Spann MD Dictated Date/Time: 07/14/22 12:49 p Reviewed By: Samira Spann MD Signed By: Samira Spann MD Signed Date/Time: 07/14/22 12:49 pm Transcribed By: CSB Transcribed Date/Time: 07/14/22 12:48 pm Patient Care team information Care Team Personnel Name: Yanira Main MD, Marzena Wiseman Position: [facility] Outreach Member Role: PCP Address: Address: [address] [place] [phone]- Name: Kim Eli Position: [facility] ED RN W/OE and Tasks Member Role: Patient Care Provider Name: Iesha Castillo DO Position: [facility] Resident Member Role: ED Resident Address: Address: [address] [place] [phone]- Name: Sunitha Mcelroy Position: [facility] ED TA [facility] Member Role: Patient Care Provider Name: Ledy Reyez MD Position: [facility] Resident Member Role: Admitting Physician Address: Address: [address] [place] [phone]- Care Team Related Persons Name: SATINDER ESTEVEZ Address: home [address] [address]
--- OUTSIDE RECORDS SUMMARY | 2023-07-22 06:05 | XMS_ITS | Continuity of Care Document ---
Author Organization [facility] Address [address] [place] [phone]- Care Team Providers Care Rehabilitation Clerk Name Role Phone Not on Staff, PCP Primary Care Physician Unavail able Encounter [facility] [place] Date(s): 05/30/22 - 05/31/[address] [address]- Discharge Disposition: A-D/C Walkout Attending Physician: Not on Staff, Attending MD Admitting Physician: Not on Staff, Admitting MD Referring Physician: Not on Staff, Referring MD Allergies, Adverse Reactions, Alerts No Known Allergies Problem List Condition Confirmation Course Effective Dates Status Health St atus Informant Severe obesity Confirmed Active Vital Signs Most recent to oldest [Reference Range]: 1 2 Oxygen Saturation [94-100 %] 99 % (05/30/22 8:23 PM) 98 % (05/30/22 7:59 PM) Pulse Rate [55-90 bpm] 96 bpm *H* (05/30/22 8:23 PM) 100 bpm *H* (05/30/22 7:59 PM) Blood Pressure [90-138/55-84 mm Hg] 142/ 77mm Hg *H* (05/30/22 8:23 PM) Respiratory Rate [16-30 br/min] 20 br/mi n (05/30/22 8:23 PM) 20 br/min (05/30/22 7:59 PM) Temperature [96.8-100.4 DegF] 98.7 DegF (05/30/22 8:23 PM) Mode of Delivery (Oxygen) Room air (05/30/22 8:23 PM) Room air (05/30/22 7:59 PM) Blood pressure sites Arm, left (05/30/22 8:23 PM) Social History Social History Type Response Smoking Status Never (less than 100 in lifetime) entered on: 11/25/21 Sex Patient Care team information Care Team Personnel Name: Not on Staff, PCP Position: S Physician (General Medicine) Member Role: PCP Care Team Related Persons Name: SATINDER ESTEVEZ Address: [address] [address]
--- OUTSIDE RECORDS SUMMARY | 2023-07-22 06:05 | XMS_ITS | Continuity of Care Document ---
Author Organization [facility] Address [address] [place] [phone]- Care Team Providers Care Central Office Maintainer Name Role Phone Not on Staff, PCP Primary Care Physician Unavail able [place] [facility] [place] - 12/28/[address] [address]- Encounter Diagnosis Abdominal pain(Final) - 12/28/21 Nausea & vomiting(Final) - 12/28/21 Discharge Disposition: A-D/C Home Attending Physician: Stephen Francois MD Admitting Physician: Stephen Francois MD Referring Physician: Not on Staff, Referring MD Allergies, Adverse Reactions, Alerts No Known Allergies Problem List Condition Effective Dates Status Health Status Inform ant Severe obesity(Confirmed) Active Vital Signs Most recent to oldest [Reference Range]: 1 2 3 Oxygen Saturation [94-100 %] 98 % (12/28/21 5:20 PM) 98 % (12/28/21 3:05 PM) 97 % (12/28/21 1:14 PM) Pulse Rate [55-90 bpm] 80 bpm (12/28/21 5:20 PM) 79 bpm (12/28/21 3:05 PM) 76 bpm (12/28/21 1:14 PM) Blood Pressure [90-138/55-84 mm Hg] 124/64mm Hg (12/28/21 5:20 PM) 127/67mm Hg (12/28/21 3:05 PM) 122/65mm Hg (12/28/21 1:14 PM) Respiratory Rate [16-30 br/min] 18 br/min (12/28/21 5:20 PM) 19 br/min (12/28/21 3:05 PM) 18 br/min (12/28/21 1:14 PM) Temperature [96.8-100.4 DegF] 97.6 DegF (12/28/21 5:20 PM) 97.6 DegF (12/28/21 3:05 PM) 97.6 DegF (12/28/21 1:14 PM) Mode of Delivery (Oxygen) Room air (12/28/21 5:20 PM) Room air (12/28/21 3:05 PM) Room air (12/28/21 1:14 PM) Blood pressure sites Arm, left (12/28/21 5:20 PM) Arm, left (12/28/21 3:05 PM) Arm, left (12/28/21 1:14 PM) Temperature Route Oral (12/28/21 5:20 PM) Oral (12/28/21 3:05 PM) Oral (12/28/21 1:14 PM) Social History Social History Type Response Smoking Status Never (less than 100 in lifetime) entered on: 11/25/21 Sex Care Team Personnel Name: Not on Staff, PCP
--- OUTSIDE RECORDS SUMMARY | 2023-07-22 06:05 | XMS_ITS | Continuity of Care Document ---
Author Organization [facility] Address [address] [place] [id number]- Care Team Providers Care Sas Architect Name Role Phone Yanira Main MD, Marzena Wiseman Primary Care Physici an Encounter [facility] Date(s): 10/20/22 - 10/20/[address] [address]- Encounter Diagnosis Hepatic steatosis(Final) - 10/20/22 Discharge Disposition: A-D/C Home Attending Physician: Zackery Stein MD Admitting Physician: Zackery Stein MD Referring Physician: Not on Staff, Referring MD Allergies, Adverse Reactions, Alerts No Known Allergies Medications indomethacin 25 mg oral capsule 2 capsule = 50 mg, By Mouth, 3 times a day, PRN for arthritis, # 30 capsule, 0 Refills, Maintenance, 07/14/22 13:23:00 EDT, Capsule, [facility], Partial fill upon patient request if the prescription is for a schedule II opioid drug... Start Date: 07/14/22 Stop Date: 07/19/22 Status: Ordered MorPHINE Inj 4 mg, Injection, IV Push Slowly, Every 5 minutes for 3 doses/times, PRN for Pain , Moderate, and SBP greater than 100, Routine, 10/20/22 11:34:00 EDT, Stop date Limited # of times Start Date: 10/20/22 Stop Date: 10/20/22 Status: Discontinued ondansetron 4 mg oral tablet, disintegrating 1 tablet = 4 mg, By Mouth, Every 8 hours, PRN as needed for nausea/vomiting, # 10 tablet, 0 Refills, Maintenance, 07/14/22 13:24:00 EDT, DIS Tablet, [facility], Partial fill upon patient request if the prescription is for a schedul... Start Date: 07/14/22 Stop Date: 07/17/22 Status: Ordered Problem List Condition Confirmation Course Effective Dates Status Health St atus Informant Severe obesity Confirmed Active Results Radiology Reports * Exam Date Time Procedure Performing Provider Status 10/20/22 12:[address] Abd/Pelvis W/ IV Contrast Only Nhi Oneal; Auth (Verified) Notes: (CT Abd/Pelvis W/ IV Contrast Only) Reason For Exam: LLQ abdominal pain;Other: RESULT: CT Abd/Pelvis W/ IV Contrast Only CT Abd/Pelvis W/ IV Contrast Only Hx of Present Illness: n v abdominal pain; LLQ abdominal pain. History of rheumatoid arthritis; Clinical Question(s): Appendicitis TECHNIQUE: Spiral CT through the abdomen and pelvis with IV contrast formatted in 3 planes. 100 cc of Omnipaque 300 was administered intravenously. This study was performed without oral contrast. Weight-based protocol using automatic tube modulation was used to optimize exposure parameters. CTDIvol Body: 22.17 mGy, DLP Body: 1135 mGy*cm. COMPARISON: CT 08/11/2022 FINDINGS: Data Sciences Director View Findings, Lines and Tubes: None. Visualized Chest: Two groundglass nodules with indistinct margins in the medial right lower lobe largest measuring 13 mm (axial 3-5), increased from prior. No pleural effusion. The heart is normal insize. No pericardial effusion. Diaphragm: Normal. Liver: Severe hepatic steatosis. No focal lesion. Gallbladder: Absent consistent with prior cholecystectomy. Bile ducts: No biliary ductal dilation. Spleen: Normal. Pancreas: Normal. Adrenal glands: Normal. Kidneys and ureters: No hydronephrosis, stones, or suspicious masses. Bladder: Normal. Reproductive organs: Unremarkable. Stomach, small bowel, and large bowel: Moderate type III paraesophageal hernia containing the gastric fundus. The stomach is otherwise unremarkable. The small and large bowel are normal in caliber without evidence of obstruction. Appendix: Normal, best seen on axial 99. Peritoneum and retroperitoneum: No ascites or pneumoperitoneum. No omental or mesenteric lesions. Lymph nodes: No enlarged lymph nodes. Blood vessels: Normal. No aneurysm. No evidence of venous thrombosis. Abdominal and pelvic wall: Unremarkable. Bones: No acute abnormality. IMPRESSION: 1. No acute abnormality in the abdomen and pelvis. 2. Two ground glass nodules in the medial right lower lobe have increased from prior. These are possibly infectious/inflammatory and may be related to patient's rheumatoid arthritis, although other etiologies cannot be completely excluded. Recommend nonemergent CT chest for further evaluation. 3. Moderate type III paraesophageal hernia. 4. Severe hepatic steatosis. I have personally reviewed the images and I agree with this report. WSN: [id number] Ordering Physician: Gladys Johnson Dictated By: Phil Okeefe MD Dictated Date/Time: 10/20/22 12:59 p Reviewed By: Kimberlyn García MD Signed By: Kimberlyn García MD Signed Date/Time: 10/20/22 1:04 pm Transcribed By: MICHELLE Transcribed Date/Time: 10/20/22 12:48 pm Vital Signs Most recent to oldest [Reference Range]: 1 2 3 Height 155 cm (10/20/22 11:40 AM) 155 cm (10/20/22 11:23 AM) 155 cm (10/20/22 9:05 AM) Oxygen Saturation [94-100 %] 100 % (10/20/22 2:04 PM) 100 % (10/20/22 11:23 AM) 97 % (10/20/22 9:05 AM) Pulse Rate [55-90 bpm] 78 bpm (10/20/22 2:04 PM) 67 bpm (10/20/22 11:23 AM) 80 bpm (10/20/22 9:05 AM) Blood Pressure [90-138/55-84 mm Hg] 128/76mm Hg (10/20/22 2:04 PM) 105/65mm Hg (10/20/22 11:23 AM) 130/90mm Hg (10/20/22 9:05 AM) Respiratory Rate [16-30 br/min] 16 br/min (10/20/22 2:04 PM) 15 br/min *L* (10/20/22 11:51 AM) 16 br/min (10/20/22 9:05 AM) Temperature [96.8-100.4 DegF] 97.5 DegF (10/20/22 2:04 PM) 97.9 DegF (10/20/22 11:23 AM) 97.9 DegF (10/20/22 9:05 AM) Mode of Delivery (Oxygen) Room air (10/20/22 2:04 PM) Room air (10/20/22 11:23 AM) Room air (10/20/22 9:05 AM) Blood pressure sites Arm, left (10/20/22 2:04 PM) Arm, left (10/20/22 9:05 AM) Temperature Route Oral (10/20/22 2:04 PM) Oral (10/20/22 9:05 AM) Dry Weight 104.4 kg (10/20/22 11:40 AM) 104.4 kg (10/20/22 11:23 AM) 104.4 kg (10/20/22 9:05 AM) Dry Weight Obtained Via Patient/family s tated (10/20/22 9:05 AM) Social History Social History Type Response Smoking Status Never (less than 100 in lifetime) entered on: 11/25/21 Sex Note * Elizabeth GRAY, Gladys: PERFORM Event Display: Patient Education Leaflets Authored Date: [id number] Nonalcoholic Fatty Liver Disease (NAFLD) ?? [address] Enfermedad de h??gado graso no alcoh??yamileth (EHGNA) La EHGNA es jeanette enfermedad com??n del h??gado. Se presenta cuando tiene demasiada grasa en el h??gado. Si la EHGNA es grave, puede producir da??os hep??ticos que parecen similares a los causados por beber demasiado alcohol. Sin embargo, la EHGNA no surge por rosa bebidas alcoh??licas. En esta hoja, encontrar?? m??s informaci??n acerca de la EHGNA y walls tratamiento. C??mo funciona el h??gado?? El h??gado es un ??rgano ubicado en el lado superior derecho del abdomen. Tiene muchas funciones importantes. Entre ellos, se encuentran los siguientes: ??? Descomponer (metabolizar) prote??martha, carbohidratos y grasas ??? Producir jeanette sustancia llamada bilis que ayuda a descomponer las grasas ??? Almacenar y liberar az??car (glucosa) en la gage para ramon energ??a al cuerpo ??? Eliminar las toxinas de la gage ??? Facilitar la coagulaci??n de la gage ?Qu?? es la EHGNA? Un h??gado sherron puede contener algo de grasa. Sin embargo, si se acumula demasiada grasa en el h??gado, se produce la EHGNA. Si la EHGNA es leve, causa h??gado graso. O geovany, puede ser m??s grave y presentar inflamaci??n adem??s del exceso de grasa. [place] puede causar esteatohepatitis no alcoh??lica(EHNA). ??? H??gado graso. En anabel mitch, el h??gado simplemente tiene m??s grasa de lo normal. Por lo general, esta grasa adicional no da??a el h??gado. ??? EHNA. En anabel mitch, el h??gado graso se inflama con el tiempo. La EHNA es grave porque puede ocasionar cicatrices en el h??gado (fibrosis).??Con el tiempo, las cicatrices pueden producir cirrosis del h??gado. [place] puede llegar a causar insuficiencia hep??alaina o c??ncer de h??gado. ?? Causas y factores de riesgo de la EHGNA Los m??dicos desconocen la causa de la EHGNA. Sin embargo, la probabilidad de que surja anabel trastorno puede aumentar en presencia de ciertos factores de riesgo. Entre ellos, se encuentran los siguientes: ??? Obesidad ??? Prediabetes o diabetes ??? S??ndrome del ovario poliqu??stico (SOP) ??? Presi??n arterial chrissy (hipertensi??n) y enfermedad del coraz??n ??? Altos niveles de colesterol y triglic??ridos (tipos de grasas presentes en la gage) ??? Rosa determinados medicamentos? S??ntomas de la EHGNA La mayor??a de las personas con EHGNA no tienen huma??n s??ntoma. De haberlos, los s??ntomas puedenser los siguientes: ??? Cansancio ??? Debilidad ??? P??rdida de peso ??? P??rdida del apetito ??? Malestar estomacal (n??useas) y v??mitos ??? Dolor y c??licos abdominales ??? Coloraci??n amarillentade la piel y los ojos (ictericia) ??? Orina oscura ??? Materia fecal (heces) de color caren que se ve kayla ??? Hinchaz??n en el abdomen o las piernas ?? Diagn??stico de la EHGNA Es posible que el proveedor de atenci??n m??dica sospeche que tiene EHGNA si hiram an??lisis de gage de rutina muestran que tiene niveles altos de enzimas hep??kaylin. Posiblemente, esto significa quehay un problema en el h??gado. Puede que le mu jeanette o m??s pruebas de diagn??stico por im??genes,joe jeanette ecograf??a, jeanette tomograf??a computarizada o jeanette resonancia magn??alaina. Tristan vez necesite hacerse m??s an??lisis de gage para determinar otras causas posibles de enfermedad hep??alaina.??Tambi??n podr??an hacerle jeanette biopsia de h??gado. Estela esta prueba, con jeanette aguja hueca se extrae jeanette yelena??a cantidad de tejido del h??gado. Posteriormente el tejido se estudia en un laboratorio. La bi opsia puede detectar si hay da??os que afectan el tejido hep??laura. Tambi??n puede determinar la causa de estos da??os y distinguir entre el h??gado graso y la EHNA. ?? Tratamiento de la EHGNA El tratamiento de la EHGNA edith??a seg??n la persona. El mejor tratamiento temprano radica en tratarlas afecciones que causan el s??ndrome metab??yamileth. Anabel s??ndrome es un aurora de afecciones que incluyen lo siguiente: ??? Presi??n arterial chrissy ??? Niveles altos de colesterol y triglic??ridos ??? Sobrepeso u obesidad ??? Diabetes El proveedor de atenci??n m??dica controlar?? walls sandip y tratar?? cualquier s??ntoma u otra afecci??n m??dica que tenga. Adem??s, el proveedor lo ayudar?? a controlar los factores de riesgo. [place] reducir?? las probabilidades de da??o hep??laura. De hecho, tratar estas afecciones subyacentes con frecuencia puede aliviar la enfermedad hep??alaina.??Se pueden recomendar algunos medicamentos, nay ninguno puede curar la EHGNA. Por eso es calderon importante tratar las afecciones subyacentes. Walls plan podr??a incluir lo siguiente: ??? Reducir el sobrepeso ??? Hacer ejercicios con regularidad ??? Mantener la diabetes bajo control ??? Controlar los niveles altos de colesterol o triglic??ridos ??? Rosa medicamentos y vitaminas seg??n las indicaciones del proveedor ??? Abstenerse de fumar ??? Evitar las bebidas alcoh??licas ??? Seguir jeanette dieta saludable ?? C??mo vivir con EHGNA Si se diagnostica a tiempo, la EHGNA puede controlarse con tratamiento. El proveedor de atenci??n m??dica le explicar?? otras opciones de tratamiento, de ser necesario. Siga todas las sugerencias de tratamiento. Pida ayuda a los proveedores si tiene problemas para manejar alguno de los consejos. Aseg??rese de preguntarle al proveedor sobre las vacunas recomendadas. Estas incluyen las vacunas contra virus que pueden causar enfermedades hep??kaylin. ?? Last Reviewed Date: 2021 ?? [id number] [employer]. Todos los derechos reservados. Esta informaci??n no pretende sustituir la atenci??n m??dica profesional. S??lo walls m??dico puede diagnosticar y tratar un problema de sandip. ?? * Gladys Johnson NP: PERFORM Event Display: Patient Education Leaflets Authored Date: [id number] Nonalcoholic Fatty Liver Disease (NAFLD) ?? [address] Enfermedad de h??gado graso no alcoh??yamileth (EHGNA) La EHGNA es jeanette enfermedad com??n del h??gado. Se presenta cuando tiene demasiada grasa en el h??gado. Si la EHGNA es grave, puede producir da??os hep??ticos que parecen similares a los causados por beber demasiado alcohol. Sin embargo, la EHGNA no surge por rosa bebidas alcoh??licas. En esta hoja, encontrar?? m??s informaci??n acerca de la EHGNA y walls tratamiento. C??mo funciona el h??gado?? El h??gado es un ??rgano ubicado en el lado superior derecho del abdomen. Tiene muchas funciones importantes. Entre ellos, se encuentran los siguientes: ??? Descomponer (metabolizar) prote??martha, carbohidratos y grasas ??? Producir jeanette sustancia llamada bilis que ayuda a descomponer las grasas ??? Almacenar y liberar az??car (glucosa) en la gage para ramon energ??a al cuerpo ??? Eliminar las toxinas de la gage ??? Facilitar la coagulaci??n de la gage ?Qu?? es la EHGNA? Un h??gado sherron puede contener algo de grasa. Sin embargo, si se acumula demasiada grasa en el h??gado, se produce la EHGNA. Si la EHGNA es leve, causa h??gado graso. O geovany, puede ser m??s grave y presentar inflamaci??n adem??s del exceso de grasa. [place] puede causar esteatohepatitis no alcoh??lica(EHNA). ??? H??gado graso. En anabel mitch, el h??gado simplemente tiene m??s grasa de lo normal. Por lo general, esta grasa adicional no da??a el h??gado. ??? EHNA. En anabel mithc, el h??gado graso se inflama con el tiempo. La EHNA es grave porque puede ocasionar cicatrices en el h??gado (fibrosis).??Con el tiempo, las cicatrices pueden producir cirrosis del h??gado. [place] puede llegar a causar insuficiencia hep??alaina o c??ncer de h??gado. ?? Causas y factores de riesgo de la EHGNA Los m??dicos desconocen la causa de la EHGNA. Sin embargo, la probabilidad de que surja anabel trastorno puede aumentar en presencia de ciertos factores de riesgo. Entre ellos, se encuentran los siguientes: ??? Obesidad ??? Prediabetes o diabetes ??? S??ndrome del ovario poliqu??stico (SOP) ??? Presi??n arterial chrissy (hipertensi??n) y enfermedad del coraz??n ??? Altos niveles de colesterol y triglic??ridos (tipos de grasas presentes en la gage) ??? Rosa determinados medicamentos? S??ntomas de la EHGNA La mayor??a de las personas con EHGNA no tienen huma??n s??ntoma. De haberlos, los s??ntomas puedenser los siguientes: ??? Cansancio ??? Debilidad ??? P??rdida de peso ??? P??rdida del apetito ??? Malestar estomacal (n??useas) y v??mitos ??? Dolor y c??licos abdominales ??? Coloraci??n amarillentade la piel y los ojos (ictericia) ??? Orina oscura ??? Materia fecal (heces) de color caren que se ve kayla ??? Hinchaz??n en el abdomen o las piernas ?? Diagn??stico de la EHGNA Es posible que el proveedor de atenci??n m??dica sospeche que tiene EHGNA si hiram an??lisis de gage de rutina muestran que tiene niveles altos de enzimas hep??kaylin. Posiblemente, esto significa quehay un problema en el h??gado. Puede que le mu jeanette o m??s pruebas de diagn??stico por im??genes,joe jeanette ecograf??a, jeanette tomograf??a computarizada o jeanette resonancia magn??alaina. Tristan vez necesite hacerse m??s an??lisis de gage para determinar otras causas posibles de enfermedad hep??alaina.??Tambi??n podr??an hacerle jeanette biopsia de h??gado. Estela esta prueba, con jeanette aguja hueca se extrae jeanette yelena??a cantidad de tejido del h??gado. Posteriormente el tejido se estudia en un laboratorio. La bi opsia puede detectar si hay da??os que afectan el tejido hep??laura. Tambi??n puede determinar la causa de estos da??os y distinguir entre el h??gado graso y la EHNA. ?? Tratamiento de la EHGNA El tratamiento de la EHGNA edith??a seg??n la persona. El mejor tratamiento temprano radica en tratarlas afecciones que causan el s??ndrome metab??yamileth. Anabel s??ndrome es un aurora de afecciones que incluyen lo siguiente: ??? Presi??n arterial chrissy ??? Niveles altos de colesterol y triglic??ridos ??? Sobrepeso u obesidad ??? Diabetes El proveedor de atenci??n m??dica controlar?? walls sandip y tratar?? cualquier s??ntoma u otra afecci??n m??dica que tenga. Adem??s, el proveedor lo ayudar?? a controlar los factores de riesgo. [place] reducir?? las probabilidades de da??o hep??laura. De hecho, tratar estas afecciones subyacentes con frecuencia puede aliviar la enfermedad hep??alaina.??Se pueden recomendar algunos medicamentos, nay ninguno puede curar la EHGNA. Por eso es calderon importante tratar las afecciones subyacentes. Walls plan podr??a incluir lo siguiente: ??? Reducir el sobrepeso ??? Hacer ejercicios con regularidad ??? Mantener la diabetes bajo control ??? Controlar los niveles altos de colesterol o triglic??ridos ??? Rosa medicamentos y vitaminas seg??n las indicaciones del proveedor ??? Abstenerse de fumar ??? Evitar las bebidas alcoh??licas ??? Seguir jeanette dieta saludable ?? C??mo vivir con EHGNA Si se diagnostica a tiempo, la EHGNA puede controlarse con tratamiento. El proveedor de atenci??n m??dica le explicar?? otras opciones de tratamiento, de ser necesario. Siga todas las sugerencias de tratamiento. Pida ayuda a los proveedores si tiene problemas para manejar alguno de los consejos. Aseg??rese de preguntarle al proveedor sobre las vacunas recomendadas. Estas incluyen las vacunas contra virus que pueden causar enfermedades hep??kaylin. ?? Last Reviewed Date: 2021 ?? [id number] [employer]. Todos los derechos reservados. Esta informaci??n no pretende sustituir la atenci??n m??dica profesional. S??lo walls m??dico puede diagnosticar y tratar un problema de sandip. ?? * Gladys Johnson NP: PERFORM Event Display: Patient Education Leaflets Authored Date: [id number] What Is a Hernia? ?? [address] ??Qu?? es jeanette hernia? Jeanette hernia aparece cuando un ??rgano o un tejido ejercen presi??n sobre un punto d??blessing de la pareddel abdomen. El punto d??blessing puede estar presente desde el nacimiento. O geovany puede producirse a causa del desgaste y el esfuerzo de la carmen cotidiana. Sin tratamiento, la hernia puede empeorar con el tiempo y con el esfuerzo f??sico. Cuando se forma un bulto Cuando hay un punto d??blessing en la pared abdominal, un ??rgano o un tejido pueden ejercer presi??n hacia afuera. A menudo esto produce un bulto que se puede lester debajo de la piel. El bulto puede aumentar de chai??o al estar de pie. Puede desaparecer al estar acostado. Tambi??n es posible que sienta presi??n o dolor leve al levantar objetos, al toser, al orinar o al moverse. ?? Tipos de hernias El tipo de hernia depende de la funmi del cuerpo en la que se encuentra. La mayor??a de las hernias se jennifer en la sixto o cerca del anillo inguinal interno. Esta es la entrada de un canal entre el abdomen y la sixto. Las hernias tambi??n pueden ocurrir en el abdomen, en los muslos y en los genitales. ??? Hernia quir??rgica. Ocurre en el lugar de un brina (incisi??n) quir??rgico previo. ??? Hernia umbilical. Ocurre en el ombligo. ??? Hernia inguinal indirecta. Ocurre en la sixto, en el anillo inguinal interno. ??? Hernia inguinal directa. Ocurre en la sixto, cerca del anillo inguinal interno. ??? Hernia femoral. Ocurre exactamente debajo de la sixto. ??? Hernia epig??strica. Ocurre en el abdomen superior, a la altura de la l??era media. Pueden ocurrir otros tipos de hernias. Nay son muy poco frecuentes. ?? Diagn??stico En la mayor??a de los casos, el proveedor de atenci??n m??dica puede diagnosticar jeanette hernia a zulema??s de jeanette exploraci??n f??nancy. En algunos casos, el motivo de la hinchaz??n en la pared del abdomen puede no ser calderon caren. Es posible que necesite hacerse jeanette prueba de diagn??stico por im??genes, joe jeanette ecograf??a o jeanette tomograf??a computarizada. Estas pruebas pueden ser ??tiles para establecer el diagn??stico. ?? Cirug??a En los ni??os, la hernia umbilical suele cerrarse sara. En los adultos, la hernia no se te por s?? sara. Es necesaria la cirug??a para reparar el punto d??blessing de la pared abdominal. Sin tratamiento, la hernia puede aumentar de chai??o. Puede causar problemas graves de sandip. Algunas hernias pueden mantenerse en observaci??n y repararse si aumentan de chai??o o si comienzan a causar s??ntomas. La mayor??a de las hernias se solucionan con jeanette cirug??a laparosc??pica. Anabel tipo de cirug??a se realiza a zulema??s de varios chong yelena??os. Para tratar algunos tipos de hernias, es necesario hacer jeanette cirug??a en la que se realiza un brina m??s curtis en el abdomen. En algunos casos, puede regresar a walls casa el mismo d??a de la cirug??a. ?? Cu??ndo debe llamar a walls proveedor Llame o visite a walls proveedor de atenci??n m??dica de inmediato si la funmi hinchada alrededor de lahernia se vuelve m??s curtis, m??s firme o m??s dolorosa. Podr??an ser signos de que los intestinosest??n atascados en la pared abdominal y de que hay problemas con el suministro de gage. [place] es jeanette emergencia. La hernia debe repararse de inmediato para evitar problemas graves. ?? Last Reviewed Date: 2021 ?? [id number] [employer]. Todos los derechos reservados. Esta informaci??n no pretende sustituir la atenci??n m??dica profesional. S??lo walls m??dico puede diagnosticar y tratar un problema de sandip. ?? Patient Care team information Care Team Personnel Name: Marzena Strong MD Position: [facility] Outreach Member Role: PCP Address: Address: [address] [place] [address] Name: Davina Mace RN Position: [facility] ED RN W/OE and Tasks Member Role: Patient Care Provider Name: Teagan Kendall Position: [facility] ED TA [facility] Name: Gladys Johnson NP Position: [facility] Associate Professional Member Role: ED Physician [employer] Trimmer Address: Address: [address] [place] [address] Name: Zackery Stein MD Position: [facility] ED Medicine MD Member Role: Admitting Physician Address: Address: [address] [place] [address] Care Team Related Persons Name: SATINDER ESTEVEZ Address: home [address] [place] [address], [place] [address]
--- OUTSIDE RECORDS SUMMARY | 2023-07-22 06:05 | XMS_ITS | Continuity of Care Document ---
Author Organization [facility] Address [address] [place] [id number]- Care Team Providers [employer] Vice Principal Name Role Phone Yanira Main MD, Marzena Wiseman Primary Care Physici an Encounter [facility] Date(s): 10/10/21 - 11/09/21 [facility] [address] [address]- Allergies, Adverse Reactions, Alerts No Known Allergies Problem List Condition Effective Dates Status Health Status Inform ant Severe obesity(Confirmed) Active
--- OUTSIDE RECORDS SUMMARY | 2023-07-22 06:05 | XMS_ITS | Continuity of Care Document ---
Author Organization [facility] Address [address] [place] [address]- Care Team Providers Care Dental Equipment Repairer Name Role Phone Not on Staff, PCP Primary Care Physician Unavail able Encounter [facility] [place] Date(s): 02/23/22 - 02/23/[address] [address]- Discharge Disposition: A-D/C Home Attending Physician: Denae Watt MD Admitting Physician: Denae Watt MD Referring Physician: Not on Staff, Referring MD Allergies, Adverse Reactions, Alerts No Known Allergies Problem List Condition Confirmation Course Effective Dates Status Health St atus Informant Severe obesity Confirmed Active Results Radiology Reports * Exam Date Time Procedure Performing Provider Status 02/23/22 11:33 AM Chest 2 Views Frontal and Lat McGron yAida M; Auth (Verified) Notes: (Chest 2 Views Frontal and Lat) Reason For Exam: Chest Pain;Other: RESULT: Chest 2 Views Frontal and Lat Chest 2 Views Frontal and Lat Hx of Present Illness: 2 days of dizziness and headache - +sob - yesterday fever also c o chest pain on left side and burning at times in breast - +nausea - denies any other issues - also has eye pressure; Reason: Other:; Chest Pain; Clinical Question(s): Other: COMPARISON: None. FINDINGS: LINES AND TUBES: None. LUNGS AND PLEURA: Clear lungs. Normal pulmonary vascularity. No pleural effusion. No pneumothorax. HEART, MEDIASTINUM AND YOAN: Heart is normal in size. Normal mediastinal and hilar contour. BONES AND SOFT TISSUES: No acute abnormality. Clips noted in the right upper quadrant. IMPRESSION: No acute abnormality. WSN: [id number] Ordering Physician: Zackery Stein MD Dictated By: My Stringer MD, I Dictated Date/Time: 02/23/22 12:28 p Reviewed By: My Stringer MD, I Signed By: My Stringer MD, I Signed Date/Time: 02/23/22 12:28 pm Transcribed By: MICHELLE Transcribed Date/Time: 02/23/22 12:27 pm Vital Signs Most recent to oldest [Reference Range]: 1 2 Height 155 cm (02/23/22 10:54 AM) Weight 100 kg (02/23/22 10:54 AM) Oxygen Saturation [94-100 %] 100 % (02/23/22 10:11 AM) 100 % (02/23/22 10:07 AM) Pulse Rate [55-90 bpm] 79 bpm (02/23/22 10:11 AM) 86 bpm (02/23/22 10:07 AM) Blood Pressure [90-138/55-84 mm Hg] 140/ 91mm Hg *H* (02/23/22 10:11 AM) Temperature [96.8-100.4 DegF] 97.8 DegF (02/23/22 10:11 AM) Mode of Delivery (Oxygen) Room air (02/23/22 10:11 AM) Room air (02/23/22 10:07 AM) Blood pressure sites Arm, right (02/23/22 10:11 AM) Temperature Route Oral (02/23/22 10:11 AM) Dry Weight 100 kg (02/23/22 10:54 AM) Social History Social History Type Response Smoking Status Never (less than 100 in lifetime) entered on: 11/25/21 Sex EKG study * Event Display: ECG 12-Lead Authored Date: Please click on pdf link to open report * Event Display: ECG 12-Lead Authored Date: Ventricular Rate: 78 BPM Atrial Rate: 78 BPM P-R Interval: 138 ms QRS Duration: 86 ms Q-T Interval: 372 ms QTC Calculation(Bazett): 424 ms P [place]: 30 degrees R [place]: 30 degrees T [place]: 14 degrees Normal sinus rhythm Nonspecific T wave abnormality Abnormal ECG When compared with ECG of 25-NOV-2021 13:49, Nonspecific T wave abnormality no longer evident in Lateral leads Confirmed by JUAN MAGUIRE ([id number]) on 02/23/2022 5:15:52 PM [place]: JUAN MAGUIRE Note * Jocelin Duran: PERFORM, SIGN, VERIFY Event Display: Patient Education Handout Authored Date: * Jocelin Duran: PERFORM Event Display: Patient Education Leaflets Authored Date: Multiple Documents ?? [id number] Dolor de umu no espec??fico Hay muchas cosas que pueden causar charly de umu. La causa de walls dolor de umu no es ping. Nay, no parece ser jeanette se??al de ninguna enfermedad grave. El dolor de umu afecta a ewa todas las personas en alg??n momento de walls carmen. Es el motivo m??s com??n por el que las personas faltan al trabajo o a la escuela. Puede que tenga un dolor de umu tensional o un dolor de umu por migra??a. El estr??s puede causar un dolor de umu tensional. [place] puede ocurrir si tensa los m??sculos de los hombros, del carmen y el cuero cabelludo sin darse cuenta. Si el estr??s dura el tiempo suficiente, puede desarrollar un dolor de umu tensional. No est?? caren por qu?? ocurren las migra??as, nay existen determinadas cosas llamadas ???desencadenantes?? que pueden aumentar el riesgo de sufrir un ataque de migra??a. Los desencadenantes de migra??as pueden incluir el estr??s emocional o la depresi??n, o los cambios hormonales que se producendurante el ciclo menstrual. Otros desencadenantes incluyen las pastillas anticonceptivas y otros medicamentos, las bebidas alcoh??licas o la cafe??na, los alimentos con tiramina (joe el queso o el vino estacionados), la fatiga ocular, los cambios clim??ticos, saltearse comidas y la falta de юлия??oo dormir demasiadas horas. Otras cosas que pueden causar un dolor de umu son las siguientes: ??? Enfermedad viral con fiebre chrissy ??? Lesi??n en la umu con conmoci??n ??? Infecci??n de los senos paranasales, de los o??dos o de la garganta ??? Dolor dental y mandibular (SHADI) Otras causas m??s graves, nay menos comunes que producen dolor de umu incluyen ataques o derrames cerebrales, hemorragias cerebrales, tumores cerebrales, meningitis y encefalitis. Cuidados en el hogar Siga estos consejos para cuidarse en el hogar: ??? No conduzca hasta walls casa si le dieron medicamentos analg??sicos para walls dolor de umu. Coordine para que otra persona lo lleve a casa. Cuando llegue a casa, intente dormir. Se sentir?? mucho mejor cuando despierte. ??? Aplique calor en la parte posterior de walls carmen para aliviar un espasmo muscular del carmen. En mitch de dolor de umu por migra??a, p??ngase jeanette compresa de hielo sobre la frente o en la base del cr??ynes. ??? Si tiene n??useas o v??mitos, siga jeanette dieta liviana hasta tanto el dolor de umu se alivie. ??? Si tiene un dolor de umu por migra??a, use lentes de almas cuando salga a la gregg del d??a o se encuentre en lugares interiores con iluminaci??n brillante, hasta que hiram s??ntomas se alivien. La gregg ping y muy brillante puede empeorar leon tipo de dolor de umu. ?? Seguimiento Asista a los controles con walls proveedor de atenci??n m??dica o elizabeth lo que le hayan indicado. Hablecon walls proveedor si tiene charly de umu frecuentes. El proveedor puede ayudarle con un plan de tratamiento. Si conoce los primeros signos del dolor de umu y comienza el tratamiento de inmediato, quiz??s pueda detener el dolor usted mismo. ?? Cu??ndo buscar atenci??n m??dica Llame a walls proveedor de atenci??n m??dica de inmediato ante cualquiera de las siguientes situaciones: ??? Walls dolor de umu empeora repentinamente despu??s de las relaciones sexuales o las actividades extenuantes. ??? Walls dolor de umu no se scout en un plazo de 24??horas ??? No puede retener los l??quidos en el est??mansoor (tiene v??gerri persistente) ??? Fiebre de 100.4?F??(38?C) o m??s chrissy, o seg??n se lo indique walls proveedor de atenci??n m??dica ??? Carmen r??gido ??? Rito somnolencia, confusi??n o desmayos ??? Mareos o mareos con sensaci??n de que todo da vueltas (v??rtigo) ??? Debilidad en un brazo o jeanette pierna, o en un lado de la greg ??? Tiene dificultades para hablar o lester ?? Last Reviewed Date: 2015 ?? 2836-3422 The [employer]. All rights reserved. This information is not intended as a substitute for professional medical care. Always follow your healthcare professional's instructions. ?? * Loida MCPHERSON, Jocelin Rodriguez: PERFORM Event Display: Patient Education Leaflets Authored Date: Multiple Documents ?? [id number] Causas inciertas de dolor de pecho El dolor de pecho puede producirse por numerosas razones. En algunos casos, no se puede determinar la causa. Si walls afecci??n no parece grave y el dolor no parece venir del coraz??n, walls proveedor de atenci??n m??dica puede recomendar un seguimiento de cerca. A veces, los signos de un problema grave tardan m??s en aparecer. Muchas afecciones no relacionadas con el coraz??n pueden causar dolor de pecho. Por ejemplo: ??? Musculoesquel??kaylin. Costocondritis, jeanette inflamaci??n de los tejidos alrededor de las costillas que puede ocurrir por trauma o lesiones por uso excesivo, o jeanette distensi??n de los m??sculos de lapared tor??cica. ??? Respiratorias. Neumon??a, pulm??n colapsado (neumot??rax) o inflamaci??n del re vestimiento del pecho y los pulmones (pleuritis). ??? Gastrointestinales. Reflujo esof??gico, acidez estomacal, ??lceras o enfermedad de la ves??cula biliar. ??? Ansiedad y ataques de p??melanie ??? Compresi??n e inflamaci??n de un nervio ??? Afecciones poco frecuentes joe aneurisma a??rtico o disecci??n a??rtica (jeanette hinchaz??n de la arteria curtis que sale del coraz??n o un desgarro en la pared de la arteria) o embolia pulmonar (co??gulos de gage en los pulmones). Cuidados en el hogar Luego de walls visita, preste atenci??n a las siguientes recomendaciones: ??? Descanse hoy y evite toda actividad agotadora. ??? Knippa el medicamento recetado seg??n le hayan indicado. ??? Est?? atento acualquier dolor de pecho recurrente y observe cualquier cambio ?? Visita de seguimiento Programe jeanette visita de control con walls proveedor de atenci??n m??dica si no empieza a sentirse mejoren las siguientes 24??horas, o seg??n lo que le indiquen. ?? Cu??ndo llamar al?? 911 Llame al?? 911 si ocurre algo de lo siguiente: ??? Cambio en el tipo de dolor: se siente diferente,se anton vuelto m??s grave, dura m??s o comienza a esparcirse hacia el hombro, el brazo, el carmen, lamand??bula o la espalda ??? Falta de aire o dolor creciente al respirar ??? Debilidad, mareos o desmayos ??? Ritmo card??aco acelerado ??? Sensaci??n de aplastamiento en el pecho ??? Tos con cantidadabundante de gage ?? Cu??ndo buscar atenci??n m??dica Llame a walls proveedor de atenci??n m??dica de inmediato ante cualquiera de los siguientes signos o s??ntomas: ??? Tos con expulsi??n de esputo (flema) de color oscuro o con un poco de gage ??? Fiebre de 100.4?F (38?C) o superior, o seg??n le haya indicado walls proveedor de atenci??n m??dica ??? Dolor, enrojecimiento o hinchaz??n de jeanette pierna ?? Last Reviewed Date: 2021 ?? 1017-7139 The [employer]. Todos los derechos reservados. Esta informaci??n no pretende sustituir la atenci??n m??dica profesional. S??lo walls m??dico puede diagnosticar y tratar un problema de sandip. ?? * BHSPowerscribe , CIS S: TRANSCRIMy Huang MD I: VERIFY Event Display: Result: Authored Date: Chest 2 Views Frontal and Lat Hx of Present Illness: 2 days of dizziness and headache - +sob - yesterday fever also c o chest pain on left side and burning at times in breast - +nausea - denies any other issues - also has eye pressure; Reason: Other:; Chest Pain; Clinical Question(s): Other: COMPARISON: None. FINDINGS: LINES AND TUBES: None. LUNGS AND PLEURA: Clear lungs. Normal pulmonary vascularity. No pleural effusion. No pneumothorax. HEART, MEDIASTINUM AND YOAN: Heart is normal in size. Normal mediastinal and hilar contour. BONES AND SOFT TISSUES: No acute abnormality. Clips noted in the right upper quadrant. IMPRESSION: No acute abnormality. WSN: [id number] Ordering Physician: Zackery Stein MD Dictated By: My Stringer MD, I Dictated Date/Time: 02/23/22 12:28 p Reviewed By: My Stringer MD, I Signed By: My Stringer MD, I Signed Date/Time: 02/23/22 12:28 pm Transcribed By: MICHELLE Transcribed Date/Time: 02/23/22 12:27 pm Patient Care team information Care Team Personnel Name: Not on Staff, PCP Position: [facility] Physician (General Medicine) Member Role: PCP Name: Jocelin Duran Position: [facility] Associate Professional Member Role: ED Physician Bilingual Loan Processor Address: Address: [address] [place] [address]- Name: Alysa JULES, Denae Valdez Position: [facility] ED Medicine MD Member Role: Admitting Physician Address: Address: [address] [place] [address]- Name: Chin Mchugh Position: [facility] ED TA [facility] Name: Margoth Vázquez RN Position: [facility] ED RN W/OE and Tasks Member Role: Patient Care Provider Care Team Related Persons Name: SATINDER ESTEVEZ Address: home [address] [place] [address]
--- OUTSIDE RECORDS SUMMARY | 2023-07-22 06:05 | XMS_ITS | Continuity of Care Document ---
Author Organization [facility] Address [address] [place] [address]- Care Team Providers Care Dry Kiln Operator Helper Name Role Phone Yanira Main MD, Marzena Wiseman Primary Care Physici an [place] [facility] [place] - 11/03/[address] [address]- Encounter Diagnosis Body aches(Final) - 11/03/22 Discharge Disposition: A-D/C Home Attending Physician: Ean Bragg DO Admitting Physician: Ean Bragg DO Referring Physician: Not on Staff, Referring MD Allergies, Adverse Reactions, Alerts No Known Allergies Medications indomethacin 25 mg oral capsule 2 capsule = 50 mg, By Mouth, 3 times a day, PRN for arthritis, # 30 capsule, 0 Refills, Maintenance, 07/14/22 13:23:00 EDT, Capsule, [facility], Partial fill upon patient request if the prescription is for a schedule II opioid drug... Start Date: 07/14/22 Stop Date: 07/19/22 Status: Ordered ondansetron 4 mg oral tablet, disintegrating 1 tablet = 4 mg, By Mouth, Every 8 hours, PRN as needed for nausea/vomiting, # 10 tablet, 0 Refills, Maintenance, 07/14/22 13:24:00 EDT, DIS Tablet, [facility], Partial fill upon patient request if the prescription is for a schedul... Start Date: 07/14/22 Stop Date: 07/17/22 Status: Ordered Problem List Condition Confirmation Course Effective Dates Status Health St atus Informant Severe obesity Confirmed Active Results Radiology Reports * Exam Date Time Procedure Performing Provider Status 11/03/22 12:[address] Head/Brain W/O Contrast Lorraine Schilling; Deon (Verified) Notes: (CT Head/Brain W/O Contrast) Reason For Exam: Headache(s) RESULT: CT Head/Brain W/O Contrast CT Head/Brain W/O Contrast Reason: Headache(s); Clinical Question(s): Hematoma. TECHNIQUE: Incremental CT without contrast through the head was formatted in axial and coronal plane. Weight-based protocol using automatic tube modulation was performed to optimize scan parameters. CTDIvol Head: 48.30 mGy, DLP Head: 773 mGy*cm. COMPARISON: None on record at the time of interpretation. FINDINGS: BRAIN and EXTRA-AXIAL SPACES: No parenchymal hemorrhage, midline shift or mass effect. Asher-white matter differentiation is well preserved. No acute infarct. Ventricles, sulci and basilar cisterns are age appropriate. No white matter lesions. No subarachnoid hemorrhage, subdural or epidural collections. CALVARIUM, SKULL BASE AND SOFT TISSUES: No fractures or suspicious bony lesions. The paranasal sinuses and mastoid air cells are clear. Visualized orbits and globes are intact. The extracranial soft tissues are unremarkable. IMPRESSION: No acute process. WSN: [id number] Ordering Physician: Maru Fulton Dictated By: Yuriy Antonio MD Dictated Date/Time: 11/03/22 12:43 p Reviewed By: Yuriy Antonio MD Signed By: Yuriy Antonio MD Signed Date/Time: 11/03/22 12:43 pm Transcribed By: MICHELLE Transcribed Date/Time: 11/03/22 12:41 pm Vital Signs Most recent to oldest [Reference Range]: 1 2 3 Height 155 cm (11/03/22 1:30 PM) 155 cm (11/03/22 10:11 AM) Weight 109 kg (11/03/22 1:30 PM) 109 kg (11/03/22 10:11 AM) Oxygen Saturation [94-100 %] 100 % (11/03/22 1:30 PM) 100 % (11/03/22 10:11 AM) 99 % (11/03/22 10:03 AM) Pulse Rate [55-90 bpm] 66 bpm (11/03/22 1:30 PM) 78 bpm (11/03/22 10:11 AM) 76 bpm (11/03/22 10:03 AM) Body Mass Index [18.5-24.99 kg/m2] 45.37 kg/m2 *>HHI* (11/03/22 1:30 PM) 45.37 kg/m2 *>HHI* (11/03/22 10:11 AM) Blood Pressure [90-138/55-84 mm Hg] 99/62mm Hg (11/03/22 1:30 PM) 109/74mm Hg (11/03/22 10:11 AM) Respiratory Rate [16-30 br/min] 18 br/min (11/03/22 1:30 PM) 18 br/min (11/03/22 10:03 AM) Temperature [96.8-100.4 DegF] 97.9 DegF (11/03/22 1:30 PM) 98 DegF (11/03/22 10:11 AM) Mode of Delivery (Oxygen) Room air (11/03/22 1:30 PM) Room air (11/03/22 10:03 AM) Blood pressure sites Arm, left (11/03/22 1:30 PM) Arm, left (11/03/22 10:11 AM) Temperature Route Oral (11/03/22 1:30 PM) Oral (11/03/22 10:11 AM) Dry Weight 109 kg (11/03/22 1:30 PM) 109 kg (11/03/22 10:11 AM) Weight Obtained Via Patient/family state d (11/03/22 10:11 AM) Dry Weight Obtained Via Patient/family s tated (11/03/22 10:11 AM) Social History Social History Type Response Smoking Status Never (less than 100 in lifetime) entered on: 11/25/21 Sex EKG study * Event Display: ECG 12-Lead Authored Date: Please click on pdf link to open report * Event Display: ECG 12-Lead Authored Date: Ventricular Rate: 74 BPM Atrial Rate: 74 BPM P-R Interval: 140 ms QRS Duration: 86 ms Q-T Interval: 378 ms QTC Calculation(Bazett): 419 ms P [place]: 21 degrees R [place]: 28 degrees T [place]: 15 degrees Normal sinus rhythm Normal ECG When compared with ECG of 11-AUG-2022 09:39, No significant change was found Confirmed by JUAN MAGUIRE ([id number]) on 11/03/2022 1:14:01 PM [place]: JUAN MAGUIRE Patient Care team information Care Team Personnel Name: Yanira Main MD, Marzena Wiseman Position: [facility] Outreach Member Role: PCP Address: Address: [address] [place] [phone]- [place] Name: Maru Medellin Position: [facility] Associate Professional Member Role: ED Physician Rigger Helper Address: Address: [address] [place] [address]- Name: Ean Bragg DO Position: [facility] Resident Member Role: Admitting Physician Address: Address: [address] [place] [address]- [place] Name: Lili Adams RN Position: [facility] ED RN W/OE and Tasks Member Role: Patient Care Provider Name: Sia Law Position: [facility] ED TA [facility] Member Role: Patient Care Provider Care Team Related Persons Name: SATINDER ESTEVEZ Address: [address] [address]
--- OUTSIDE RECORDS SUMMARY | 2023-07-22 06:05 | XMS_ITS | Continuity of Care Document ---
Author Organization [facility] Address [address] [place] [address]- Care Team Providers Care Signal Person Name Role Phone Yanira Main MD, Marzena Wiseman Primary Care Physici an Encounter [facility] [place](s): 11/21/22 - 11/21/[address] [address]- Discharge Disposition: A-D/C Walkout Attending Physician: Not on Staff, Attending MD Admitting Physician: Not on Staff, Admitting MD Referring Physician: Not on Staff, Referring MD Allergies, Adverse Reactions, Alerts No Known Allergies Medications indomethacin 25 mg oral capsule 2 capsule = 50 mg, By Mouth, 3 times a day, PRN for arthritis, # 30 capsule, 0 Refills, Maintenance, 07/14/22 13:23:00 EDT, Capsule, [facility], Partial fill upon patient request if the prescription is for a schedule II opioid drug... Start Date: 07/14/22 Stop Date: 07/19/22 Status: Ordered ondansetron 4 mg oral tablet, disintegrating 1 tablet = 4 mg, By Mouth, Every 8 hours, PRN as needed for nausea/vomiting, # 10 tablet, 0 Refills, Maintenance, 07/14/22 13:24:00 EDT, DIS Tablet, [facility], Partial fill upon patient request if the prescription is for a schedul... Start Date: 07/14/22 Stop Date: 07/17/22 Status: Ordered Problem List Condition Confirmation Course Effective Dates Status Health St atus Informant Severe obesity Confirmed Active Vital Signs Most recent to oldest [Reference Range]: 1 Height 155 cm (11/21/22 7:08 PM) Oxygen Saturation [94-100 %] 100 % (11/21/22 7:08 PM) Pulse Rate [55-90 bpm] 85 bpm (11/21/22 7:08 PM) Blood Pressure [90-138/55-84 mm Hg] 136/ 86mm Hg (11/21/22 7:08 PM) Respiratory Rate [16-30 br/min] 16 br/mi n (11/21/22 7:08 PM) Temperature [96.8-100.4 DegF] 98.7 DegF (11/21/22 7:08 PM) Mode of Delivery (Oxygen) Room air (11/21/22 7:08 PM) Blood pressure sites Arm, left (11/21/22 7:08 PM) Temperature Route Oral (11/21/22 7:08 PM) Dry Weight 100 kg (11/21/22 7:08 PM) Dry Weight Obtained Via Patient/family s tated (11/21/22 7:08 PM) Social History Social History Type Response Smoking Status Never (less than 100 in lifetime) entered on: 11/25/21 Sex Patient Care team information Care Team Personnel Name: Yanira Main MD, Marzena Wiseman Position: [facility] Outreach Member Role: PCP Address: Address: [address] [place] [address] [address] [place] [phone]- Care Team Related Persons Name: SATINDER ESTEVEZ Address: home [address] [address]
--- OUTSIDE RECORDS SUMMARY | 2023-07-22 06:05 | XMS_ITS | Continuity of Care Document ---
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 Name Role Phone Yanira Main MD, Marzena Wiseman Primary Care Physici an [place] [facility] [place]s): 07/12/22 - 07/13/[address] [address]- Encounter Diagnosis Acute chest pain(Final) - 07/12/22 Discharge Disposition: A-D/C Home Attending Physician: Reji Bae MD Admitting Physician: Reji Bae MD Referring Physician: Not on Staff, Referring MD Allergies, Adverse Reactions, Alerts No Known Allergies Problem List Condition Confirmation Course Effective Dates Status Health St atus Informant Severe obesity Confirmed Active Results Radiology Reports * Exam Date Time Procedure Performing Provider Status 07/12/22 11:44 PM Chest 2 Views Fronta l and Lat Modesta Escalona; Auth (Verified) Notes: (Chest 2 Views Frontal and Lat) Reason For Exam: Shortness of Breath, Fever;Other: RESULT: Chest 2 Views Frontal and Lat Chest 2 Views Frontal and Lat Hx of Present Illness: Headache since afternoon with burning in chest; Reason: Other:; Shortness ofBreath, Fever; Clinical Question(s): Pneumonia COMPARISON: 02/23/2022. FINDINGS: LINES AND TUBES: None. LUNGS AND PLEURA: Clear lungs. Normal pulmonary vascularity. No pleural effusion. No pneumothorax. HEART, MEDIASTINUM AND YOAN: Heart is normal in size. Normal mediastinal and hilar contour. BONES AND SOFT TISSUES: No acute abnormality. IMPRESSION: No acute cardiopulmonary process. I have personally reviewed the images and I agree with this report. WSN: [id number] Ordering Physician: Reji Bae MD Dictated By: Lauryn Pérez MD Dictated Date/Time: 07/12/22 11:49 p Reviewed By: Dinesh Bryan MD Signed By: Dinesh Bryan MD Signed Date/Time: 07/12/22 11:54 pm Transcribed By: MICHELLE Transcribed Date/Time: 07/12/22 11:48 pm Vital Signs Most recent to oldest [Reference Range]: 1 2 3 Height 158 cm (07/12/22 9:24 PM) Weight 115 kg (07/12/22 9:24 PM) Oxygen Saturation [94-100 %] 100 % (07/12/22 11:23 PM) 100 % (07/12/22 9:24 PM) 100 % (07/12/22 8:59 PM) Pulse Rate [55-90 bpm] 73 bpm (07/12/22 11:23 PM) 80 bpm (07/12/22 9:24 PM) 88 bpm (07/12/22 8:59 PM) Blood Pressure [90-138/55-84 mm Hg] 115/81mm Hg (07/12/22 11:23 PM) 136/95mm Hg (07/12/22 9:24 PM) 143/83mm Hg *H* (07/12/22 8:59 PM) Respiratory Rate [16-30 br/min] 16 br/min (07/12/22 11:23 PM) 19 br/min (07/12/22 9:24 PM) 16 br/min (07/12/22 8:59 PM) Temperature [96.8-100.4 DegF] 97.9 DegF (07/12/22 9:24 PM) 97.7 DegF (07/12/22 8:59 PM) Mode of Delivery (Oxygen) Room air (07/12/22 11:23 PM) Room air (07/12/22 9:24 PM) Room air (07/12/22 8:59 PM) Blood pressure sites Arm, left (07/12/22 11:23 PM) Arm, left (07/12/22 9:24 PM) Arm, left (07/12/22 8:59 PM) Temperature Route Oral (07/12/22 9:24 PM) Oral (07/12/22 8:59 PM) Dry Weight 115 kg (07/12/22 9:24 PM) Weight Obtained Via Standing scale (07/12/22 9:24 PM) Dry Weight Obtained Via Standing scale (07/12/22 9:24 PM) Social History Social History Type Response Smoking Status Never (less than 100 in lifetime) entered on: 11/25/21 Sex Note * Reji Bae MD: PERFORM, SIGN, VERIFY Event Display: Patient Education Handout Authored Date: [id number] * Reji Bae MD: PERFORM Event Display: Patient Education Leaflets Authored Date: [id number] Headache, Unspecified ?? [id number] Dolor de umu no espec??fico Hay muchas [...] puede causar un dolor de umu tensional. [place] puede ocurrir si tensa los m??sculos de [...] lester ?? Last Reviewed Date: 2015 ?? [id number] [employer]. All rights reserved. This information is not intended as a substitute for professional medical care. Always follow your healthcare professional's instructions. ?? * Kathia JULES, Reji Dsouza: PERFORM Event Display: Patient Education Leaflets Authored Date: [id number] Chest Pain, Uncertain Cause ?? [id number] Causas inciertas de dolor de pecho El [...] hoy y evite toda actividad agotadora. ??? [place] el medicamento recetado seg??n le hayan indicado. [...] pierna ?? Last Reviewed Date: 2021 ?? [id number] [employer]. Todos los derechos reservados. Esta informaci??n no pretende sustituir la atenci??n m??dica profesional. S??lo walls m??dico puede diagnosticar y tratar un problema de sandip. ?? * [employer] , CIS S: TRANSCRIBE Dinesh Bryan MD: VERIFY Lauryn Pérez MD: SIGN Event Display: Result: Authored Date: [id number] Chest 2 Views Frontal and Lat Hx of Present Illness: Headache since afternoon with burning in chest; Reason: Other:; Shortness ofBreath, Fever; Clinical Question(s): Pneumonia COMPARISON: 02/23/2022. FINDINGS: LINES AND TUBES: None. LUNGS AND PLEURA: Clear lungs. Normal pulmonary vascularity. No pleural effusion. No pneumothorax. HEART, MEDIASTINUM AND YOAN: Heart is normal in size. Normal mediastinal and hilar contour. BONES AND SOFT TISSUES: No acute abnormality. IMPRESSION: No acute cardiopulmonary process. I have personally reviewed the images and I agree with this report. WSN: [id number] Ordering Physician: Reji Bae MD Dictated By: Lauryn Pérez MD Dictated Date/Time: 07/12/22 11:49 p Reviewed By: Dinesh Bryan MD Signed By: Dinesh Bryan MD Signed Date/Time: 07/12/22 11:54 pm Transcribed By: MICHELLE Transcribed Date/Time: 07/12/22 11:48 pm Patient Care team information Care Team Personnel Name: Marzena Strong MD Position: [facility] Outreach Member Role: PCP Address: Address: [address] [place] [address]- [place] Name: Indigo Dexter RN Position: [facility] ED RN W/OE and Tasks Member Role: Patient Care Provider Name: Reji Bae MD Position: [facility] ED Medicine MD Member Role: ED Attending Physician Address: Address: [address] [place] [address] - [address] [place] [address]- Care Team Related Persons Name: SATINDER ESTEVEZ Address: home [address] [address]
--- OUTSIDE RECORDS SUMMARY | 2023-07-22 06:05 | XMS_ITS | Continuity of Care Document ---
Author Organization [facility] Address [address] [place] [id number]- Care Team Providers Care Fx Artist Name Role Phone Yanira Main MD, Marzena Wiseman Primary Care Physici an Encounter [facility] [place]): 08/11/22 - 08/11/[address] [address]- Encounter Diagnosis Right lower quadrant pain(Final) - 08/11/22 Right lower quadrant pain(Final) - 08/11/22 Discharge Disposition: A-D/C Home Attending Physician: Abhi Siddiqui MD Admitting Physician: Abhi Siddiqui MD Referring Physician: Not on Staff, Referring MD Allergies, Adverse Reactions, Alerts No Known Allergies Medications indomethacin 25 mg oral capsule 2 capsule = 50 mg, By Mouth, 3 times a day, PRN for arthritis, # 30 capsule, 0 Refills, Maintenance, 07/14/22 13:23:00 EDT, Capsule, [facility], Partial fill upon patient request if the prescription is for a schedule II opioid drug... Start Date: 07/14/22 Stop Date: 07/19/22 Status: Ordered ondansetron 4 mg oral tablet, disintegrating 1 tablet = 4 mg, By Mouth, Every 8 hours, PRN as needed for nausea/vomiting, # 10 tablet, 0 Refills, Maintenance, 07/14/22 13:24:00 EDT, DIS Tablet, [facility], Partial fill upon patient request if the prescription is for a schedul... Start Date: 07/14/22 Stop Date: 07/17/22 Status: Ordered Problem List Condition Confirmation Course Effective Dates Status Health [facility] Informant Severe obesity Confirmed Active Results Radiology Reports * Exam Date Time Procedure Performing Provider Status 08/11/22 3:[address] Abd/Pelvis W/ IV Contrast Only Divya Basilio; Auth (Verified) Notes: (CT Abd/Pelvis W/ IV Contrast Only) Reason For Exam: LLQ abdominal pain;Other: RESULT: CT Abd/Pelvis W/ IV Contrast Only CT Abd/Pelvis W/ IV Contrast Only Hx of Present Illness: states increasing right sided epigastric abdominal pain since yesterday. Intermittent episoded of n v. Denies any CP, SOB, or dysuria. states she is not currently .; Reason: Other:; LLQ abdominal pain; Clinical Question(s): Appendicitis; Order Comment: Patient unable to tolerate PO contrast. TECHNIQUE: Spiral CT through the abdomen and pelvis with IV contrast formatted in 3 planes. 100 cc of Omnipaque 300 was administered intravenously. This study was performed with oral contrast. Weight-based protocol using automatic tube modulation was used to optimize exposure parameters. CTDIvol Body: 22.80 mGy, DLP Body: 1216 mGy*cm. COMPARISON: Ultrasound pelvis 08/11/2022 and multiple priors FINDINGS: Paraesophageal hiatal hernia. Hepatic steatosis. Cholecystectomy. Normal appendix. No acute process in the abdomen or pelvis. IMPRESSION: No acute process in the abdomen or pelvis. Paraesophageal hiatal hernia. Hepatic steatosis. I have personally reviewed the images and I agree with this report. WSN: [id number] Ordering Physician: Eulalia Zamorano Dictated By: Mey Galeas MD Dictated Date/Time: 08/11/22 3:49 pm Reviewed By: Juan Carlos Jones MD Signed By: Juan Carlos Jones MD Signed Date/Time: 08/11/22 3:54 pm Transcribed By: MICHELLE Transcribed Date/Time: 08/11/22 3:24 pm * Exam Date Time Procedure Performing Provider Status 08/11/22 2:13 PM US Pelvic Transvaginal Rachael Rodriguez; Deon (Verified) Notes: (US Pelvic Transvaginal) Reason For Exam: Pelvic Pain;Other: RESULT: US Pelvic Transvaginal US Pelvic Transabdominal, US Pelvic Doppler Comp, US Pelvic Transvaginal Hx of Present Illness: states increasing right sided epigastric abdominal pain since yesterday. Intermittent episodes of n v. Denies any CP, SOB, or dysuria. states she is not currently .; Reason: Other:; Pelvic Pain; Clinical Question(s): Torsion. LMP unknown due to irregular bleeding. 3, para 3. COMPARISON: 10/11/2021 TECHNIQUE: Transabdominal and transvaginal pelvic ultrasound with grayscale, color Doppler, and spectral Doppler analysis. FINDINGS: UTERUS: Size: 8.0 x 3.7 x 4.7 cm, volume 72.0 cc. Endometrial thickness: 0.7 cm. Morphology: Diffusely heterogeneous echotexture. Increased echogenic striation throughout the myometrium. Multiple nabothian cysts in the cervix. Minor C- section scar anterior lower uterine segment with evidence of some cystic change. RIGHT OVARY: Size: 2.2 x 1.8 x 2.5 cm, volume 5.3 cc. Morphology: Normal echotexture. No pathologic cysts or mass. Normal arterial and venous waveforms. LEFT OVARY: Size: 2.7 x 1.6 x 1.7 cm, volume 4.0 cc. Morphology: Normal echotexture. No pathologic cysts or mass. Limited evaluation of the spectral Doppler, secondary to difficult positioning of the left ovary. ADNEXA: Normal. No adnexal masses or fluid collections. IMPRESSION: Normal ovaries with no evidence of torsion. Small scar with minor cystic change. Adenomyosis possible. I have personally reviewed the images and I agree with this report. WSN: [id number] Ordering Physician: Eulalia Zamorano Dictated By: Mey Galeas MD Dictated Date/Time: 08/11/22 2:47 pm Reviewed By: Amauri Harley MD Signed By: Amauri Harley MD Signed Date/Time: 08/11/22 2:52 pm Transcribed By: MICHELLE Transcribed Date/Time: 08/11/22 2:45 pm * Exam Date Time Procedure Performing Provider Status 08/11/22 2:13 PM US Pelvic Doppler Comp Rachael Rodriguez; Deon (Verified) Notes: (US Pelvic Doppler Comp) Reason For Exam: Pelvic Pain;Other: RESULT: US Pelvic Doppler Comp US Pelvic Transabdominal, US Pelvic Doppler Comp, US Pelvic Transvaginal Hx of Present Illness: states increasing right sided epigastric abdominal pain since yesterday. Intermittent episodes of n v. Denies any CP, SOB, or dysuria. states she is not currently .; Reason: Other:; Pelvic Pain; Clinical Question(s): Torsion. LMP unknown due to irregular bleeding. 3, para 3. COMPARISON: 10/11/2021 TECHNIQUE: Transabdominal and transvaginal pelvic ultrasound with grayscale, color Doppler, and spectral Doppler analysis. FINDINGS: UTERUS: Size: 8.0 x 3.7 x 4.7 cm, volume 72.0 cc. Endometrial thickness: 0.7 cm. Morphology: Diffusely heterogeneous echotexture. Increased echogenic striation throughout the myometrium. Multiple nabothian cysts in the cervix. Minor C- section scar anterior lower uterine segment with evidence of some cystic change. RIGHT OVARY: Size: 2.2 x 1.8 x 2.5 cm, volume 5.3 cc. Morphology: Normal echotexture. No pathologic cysts or mass. Normal arterial and venous waveforms. LEFT OVARY: Size: 2.7 x 1.6 x 1.7 cm, volume 4.0 cc. Morphology: Normal echotexture. No pathologic cysts or mass. Limited evaluation of the spectral Doppler, secondary to difficult positioning of the left ovary. ADNEXA: Normal. No adnexal masses or fluid collections. IMPRESSION: Normal ovaries with no evidence of torsion. Small scar with minor cystic change. Adenomyosis possible. I have personally reviewed the images and I agree with this report. WSN: [id number] Ordering Physician: Eulalia Zamorano Dictated By: Mey Galeas MD Dictated Date/Time: 08/11/22 2:47 pm Reviewed By: Amauri Harley MD Signed By: Amauri Harley MD Signed Date/Time: 08/11/22 2:52 pm Transcribed By: MICHELLE Transcribed Date/Time: 08/11/22 2:45 pm * Exam Date Time Procedure Performing Provider Status 08/11/22 2:13 PM US Pelvic Transabdominal Horn , Cather ine; Auth (Verified) Notes: (US Pelvic Transabdominal) Reason For Exam: Pelvic Pain;Other: RESULT: US Pelvic Transabdominal US Pelvic Transabdominal, US Pelvic Doppler Comp, US Pelvic Transvaginal Hx of Present Illness: states increasing right sided epigastric abdominal pain since yesterday. Intermittent episodes of n v. Denies any CP, SOB, or dysuria. states she is not currently .; Reason: Other:; Pelvic Pain; Clinical Question(s): Torsion. LMP unknown due to irregular bleeding. 3, para 3. COMPARISON: 10/11/2021 TECHNIQUE: Transabdominal and transvaginal pelvic ultrasound with grayscale, color Doppler, and spectral Doppler analysis. FINDINGS: UTERUS: Size: 8.0 x 3.7 x 4.7 cm, volume 72.0 cc. Endometrial thickness: 0.7 cm. Morphology: Diffusely heterogeneous echotexture. Increased echogenic striation throughout the myometrium. Multiple nabothian cysts in the cervix. Minor C- section scar anterior lower uterine segment with evidence of some cystic change. RIGHT OVARY: Size: 2.2 x 1.8 x 2.5 cm, volume 5.3 cc. Morphology: Normal echotexture. No pathologic cysts or mass. Normal arterial and venous waveforms. LEFT OVARY: Size: 2.7 x 1.6 x 1.7 cm, volume 4.0 cc. Morphology: Normal echotexture. No pathologic cysts or mass. Limited evaluation of the spectral Doppler, secondary to difficult positioning of the left ovary. ADNEXA: Normal. No adnexal masses or fluid collections. IMPRESSION: Normal ovaries with no evidence of torsion. Small scar with minor cystic change. Adenomyosis possible. I have personally reviewed the images and I agree with this report. WSN: [id number] Ordering Physician: Eulalia Zamorano Dictated By: Mey Galeas MD Dictated Date/Time: 08/11/22 2:47 pm Reviewed By: Amauri Harley MD Signed By: Amauri Harley MD Signed Date/Time: 08/11/22 2:52 pm Transcribed By: MICHELLE Transcribed Date/Time: 08/11/22 2:45 pm Vital Signs Most recent to oldest [Reference Range]: 1 2 3 Oxygen Saturation [94-100 %] 100 % (08/11/22 3:18 PM) 99 % (08/11/22 9:31 AM) 97 % (08/11/22 9:27 AM) Pulse Rate [55-90 bpm] 78 bpm (08/11/22 3:18 PM) 79 bpm (08/11/22 9:31 AM) 94 bpm *H* (08/11/22 9:27 AM) Blood Pressure [90-138/55-84 mm Hg] 124/63mm Hg (08/11/22 3:18 PM) 125/77mm Hg (08/11/22 9:31 AM) Respiratory Rate [16-30 br/min] 17 br/min (08/11/22 3:18 PM) 16 br/min (08/11/22 9:31 AM) Temperature [96.8-100.4 DegF] 97.9 DegF (08/11/22 3:18 PM) 97.9 DegF (08/11/22 9:31 AM) Mode of Delivery (Oxygen) Room air (08/11/22 3:18 PM) Room air (08/11/22 9:31 AM) Blood pressure sites Arm, left (08/11/22 3:18 PM) Arm, left (08/11/22 9:31 AM) Temperature Route Oral (08/11/22 3:18 PM) Oral (08/11/22 9:31 AM) Social History Social History Type Response Smoking Status Never (less than 100 in lifetime) entered on: 11/25/21 Sex EKG study * Event Display: ECG 12-Lead Authored Date: [id number] Please click on pdf link to open report * Event Display: ECG 12-Lead Authored Date: [id number] Ventricular Rate: 81 BPM Atrial Rate: 81 BPM P-R Interval: 142 ms QRS Duration: 84 ms Q-T Interval: 368 ms QTC Calculation(Bazett): 427 ms P Bovina: 33 degrees R Bovina: 16 degrees T Bovina: -1 degrees Normal sinus rhythm Nonspecific T wave abnormality Abnormal ECG When compared with ECG of 14-JUL-2022 10:14, No significant change was found Confirmed by JUAN MAGUIRE ([id number]) on 08/11/2022 11:12:39 AM [place]: JUAN MAGUIRE US Pelvis transvaginal * [facility] , CIS S: TRANSCRIBE Gudelia JULES, Nilisha: BETH Harley MD, Amauri: VERIFY Event Display: Result: Authored Date: [id number] US Pelvic Transabdominal, US Pelvic Doppler Comp, US Pelvic Transvaginal Hx of Present Illness: states increasing right sided epigastric abdominal pain since yesterday. Intermittent episodes of n v. Denies any CP, SOB, or dysuria. states she is not currently .; Reason: Other:; Pelvic Pain; Clinical Question(s): Torsion. LMP unknown due to irregular bleeding. 3, para 3. COMPARISON: 10/11/2021 TECHNIQUE: Transabdominal and transvaginal pelvic ultrasound with grayscale, color Doppler, and spectral Doppler analysis. FINDINGS: UTERUS: Size: 8.0 x 3.7 x 4.7 cm, volume 72.0 cc. Endometrial thickness: 0.7 cm. Morphology: Diffusely heterogeneous echotexture. Increased echogenic striation throughout the myometrium. Multiple nabothian cysts in the cervix. Minor C- section scar anterior lower uterine segment with evidence of some cystic change. RIGHT OVARY: Size: 2.2 x 1.8 x 2.5 cm, volume 5.3 cc. Morphology: Normal echotexture. No pathologic cysts or mass. Normal arterial and venous waveforms. LEFT OVARY: Size: 2.7 x 1.6 x 1.7 cm, volume 4.0 cc. Morphology: Normal echotexture. No pathologic cysts or mass. Limited evaluation of the spectral Doppler, secondary to difficult positioning of the left ovary. ADNEXA: Normal. No adnexal masses or fluid collections. IMPRESSION: Normal ovaries with no evidence of torsion. Small scar with minor cystic change. Adenomyosis possible. I have personally reviewed the images and I agree with this report. WSN: [id number] Ordering Physician: Eulalia Zamorano Dictated By: Mey Galeas MD Dictated Date/Time: 08/11/22 2:47 pm Reviewed By: Amauri Harley MD Signed By: Amauri Harley MD Signed Date/Time: 08/11/22 2:52 pm Transcribed By: MICHELLE Transcribed Date/Time: 08/11/22 2:45 pm Note * [facility] , CIS S: TRANSCRIBE Mey Galeas MD: SIGN Amauri Harley MD: VERIFY Event Display: Result: Authored Date: [id number] US Pelvic Transabdominal, US Pelvic Doppler Comp, US Pelvic Transvaginal Hx of Present Illness: states increasing right sided epigastric abdominal pain since yesterday. Intermittent episodes of n v. Denies any CP, SOB, or dysuria. states she is not currently .; Reason: Other:; Pelvic Pain; Clinical Question(s): Torsion. LMP unknown due to irregular bleeding. 3, para 3. COMPARISON: 10/11/2021 TECHNIQUE: Transabdominal and transvaginal pelvic ultrasound with grayscale, color Doppler, and spectral Doppler analysis. FINDINGS: UTERUS: Size: 8.0 x 3.7 x 4.7 cm, volume 72.0 cc. Endometrial thickness: 0.7 cm. Morphology: Diffusely heterogeneous echotexture. Increased echogenic striation throughout the myometrium. Multiple nabothian cysts in the cervix. Minor C- section scar anterior lower uterine segment with evidence of some cystic change. RIGHT OVARY: Size: 2.2 x 1.8 x 2.5 cm, volume 5.3 cc. Morphology: Normal echotexture. No pathologic cysts or mass. Normal arterial and venous waveforms. LEFT OVARY: Size: 2.7 x 1.6 x 1.7 cm, volume 4.0 cc. Morphology: Normal echotexture. No pathologic cysts or mass. Limited evaluation of the spectral Doppler, secondary to difficult positioning of the left ovary. ADNEXA: Normal. No adnexal masses or fluid collections. IMPRESSION: Normal ovaries with no evidence of torsion. Small scar with minor cystic change. Adenomyosis possible. I have personally reviewed the images and I agree with this report. WSN: [id number] Ordering Physician: Eulalia Zamorano Dictated By: Mey Galeas MD Dictated Date/Time: 08/11/22 2:47 pm Reviewed By: Amauri Harley MD Signed By: Amauri Harley MD Signed Date/Time: 08/11/22 2:52 pm Transcribed By: MICHELLE Transcribed Date/Time: 08/11/22 2:45 pm US Pelvis * [facility] , CIS S: TRANSCRIBE Mey Galeas MD: SIGN Amauri Harley MD: VERIFY Event Display: Result: Authored Date: [id number] US Pelvic Transabdominal, US Pelvic Doppler Comp, US Pelvic Transvaginal Hx of Present Illness: states increasing right sided epigastric abdominal pain since yesterday. Intermittent episodes of n v. Denies any CP, SOB, or dysuria. states she is not currently .; Reason: Other:; Pelvic Pain; Clinical Question(s): Torsion. LMP unknown due to irregular bleeding. 3, para 3. COMPARISON: 10/11/2021 TECHNIQUE: Transabdominal and transvaginal pelvic ultrasound with grayscale, color Doppler, and spectral Doppler analysis. FINDINGS: UTERUS: Size: 8.0 x 3.7 x 4.7 cm, volume 72.0 cc. Endometrial thickness: 0.7 cm. Morphology: Diffusely heterogeneous echotexture. Increased echogenic striation throughout the myometrium. Multiple nabothian cysts in the cervix. Minor C- section scar anterior lower uterine segment with evidence of some cystic change. RIGHT OVARY: Size: 2.2 x 1.8 x 2.5 cm, volume 5.3 cc. Morphology: Normal echotexture. No pathologic cysts or mass. Normal arterial and venous waveforms. LEFT OVARY: Size: 2.7 x 1.6 x 1.7 cm, volume 4.0 cc. Morphology: Normal echotexture. No pathologic cysts or mass. Limited evaluation of the spectral Doppler, secondary to difficult positioning of the left ovary. ADNEXA: Normal. No adnexal masses or fluid collections. IMPRESSION: Normal ovaries with no evidence of torsion. Small scar with minor cystic change. Adenomyosis possible. I have personally reviewed the images and I agree with this report. WSN: [id number] Ordering Physician: Eulalia Zamorano Dictated By: Mey Galeas MD Dictated Date/Time: 08/11/22 2:47 pm Reviewed By: Amauri Harley MD Signed By: Amauri Harley MD Signed Date/Time: 08/11/22 2:52 pm Transcribed By: MICHELLE Transcribed Date/Time: 08/11/22 2:[address] Abdomen and Pelvis W contrast IV * [facility] , CIS S: TRANSCRIBE Juan Carlos Jones MD P: VERIFY Mey Galeas MD: SIGN Event Display: Result: Authored Date: [id number] CT Abd/Pelvis W/ IV Contrast Only Hx of Present Illness: states increasing right sided epigastric abdominal pain since yesterday. Intermittent episoded of n v. Denies any CP, SOB, or dysuria. states she is not currently .; Reason: Other:; LLQ abdominal pain; Clinical Question(s): Appendicitis; Order Comment: Patient unable to tolerate PO contrast. TECHNIQUE: Spiral CT through the abdomen and pelvis with IV contrast formatted in 3 planes. 100 cc of Omnipaque 300 was administered intravenously. This study was performed with oral contrast. Weight-based protocol using automatic tube modulation was used to optimize exposure parameters. CTDIvol Body: 22.80 mGy, DLP Body: 1216 mGy*cm. COMPARISON: Ultrasound pelvis 08/11/2022 and multiple priors FINDINGS: Paraesophageal hiatal hernia. Hepatic steatosis. Cholecystectomy. Normal appendix. No acute process in the abdomen or pelvis. IMPRESSION: No acute process in the abdomen or pelvis. Paraesophageal hiatal hernia. Hepatic steatosis. I have personally reviewed the images and I agree with this report. WSN: [id number] Ordering Physician: Eulalia Zamorano Dictated By: Mey Galeas MD Dictated Date/Time: 08/11/22 3:49 pm Reviewed By: Juan Carlos Jones MD Signed By: Juan Carlos Jones MD Signed Date/Time: 08/11/22 3:54 pm Transcribed By: MICHELLE Transcribed Date/Time: 08/11/22 3:24 pm Patient Care team information Care Team Personnel Name: Marzena Strong MD Position: [facility] Outreach Member Role: PCP Address: Address: [address] [place] [address] Name: Abhi Siddiqui MD Position: [facility] ED Medicine MD Member Role: Admitting Physician Address: Address: [address] [place] [id number]- Name: Adriane Aranda Position: [facility] ED TA [facility] Name: Renzo Perez LPN Position: [facility] ED RN W/OE and Tasks Member Role: Patient Care Provider Name: Perlita Sousa MD Position: [facility] Resident Member Role: ED Resident Address: Address: [address] [place] [id number]- Care Team Related Persons Name: SATINDER ESTEVEZ Address: home [address] [place] [id number]
[2023-07-22 06:19] LABS: UPreg QC Valid YES; Urine Pregnancy NEGATIVE (NEGATIVE)
[2023-07-22] MEDS: Lactated Ringers 1,000 ML 100 ML IVCONT ×3 (06:31→22:15)
[2023-07-22] MEDS: Lactated Ringers 1,000 ML 999 ML IV (06:32)
[2023-07-22] MEDS: Aprepitant 32 MG/4.4 ML VIAL IVPUSH (06:34)
--- NOTE | 2023-07-22 07:37 | MHC.SHP ---
Pre-Procedural Eval Section A - 24 Hr Update-Section A only Date of Service: 07/22/23 The patient is an INPATIENT: Yes Section B - Complete if H&P > 30 days Chief Complaint: Morbid Obesity Relevant Family History (Specify if Yes): No Relevant Social History: None Present Medications: None Medical History: No relevant PMH History of Previous Operations: No relevant previous surgery Allergies: Allergies Allergy/AdvReac Type Severity Reaction Status Date / Time No Known Allergies Allergy Verified 07/22/23 06:37 Review of Systems Sugical H&P ROS: Negative: Constitution, Cardiovascular, Respiratory, Neurological, Psychiatric, Hem-Onc, Allergic/Immunologic, Gastrointestinal, Genitourinary, Musculoskeletal, Integumentary, Endocrine and Eyes/Ears/Nose/Throat Exam Surgical H&P Exam: Normal: HEENT, Normal: Heart, Normal: Lungs, Normal: Extremities, Normal: Abdomen, Normal: Skin and Normal: Neurological Plan Diagnosis/Plan: Unchanged I have reviewed the history and physical and performed a pertinent physical examination on my patient. No changes have occurred unless specified. Time Spent With Patient Time: Total time managing care of this patient today ____ minutes.
--- NOTE | 2023-07-22 07:38 | PM.OP ---
Brief Operative Note Date of Service: 07/22/23 Pre-op diagnosis: Morbid obesity with comorbidities (see below) Post-op diagnosis: same (& incarcerated diaphragmatic hernia) Procedure: INITIAL PATIENT BMI ON PRESENTATION AT OUR OFFICE: 47.3 kg/m2 LAST BMI BEFORE SURGERY: 42.6 kg/m2 COMORBIDITIES: GERD, rheumatoid arthritis, ?The patient presented to the Weight Management Program with significant obesity that was negatively impacting the patient's comorbidities as listed above.? The program is a phased program with a special focus on preoperative medical weight management to promote substantial weight loss and prepare the patients for the second phase of the program: bariatric surgery. The patient participated in an intensive weekly lifestyle ?intervention and exercise program during which the patient ?has lost between the initial office visit and the last preoperative visit 25 lbs, or 10% of initial actual body weight. It was deemed appropriate for the patient to now have bariatric surgery. In light of the current Covid-19 pandemic and the well documented strong association of obesity and increased risk of worse outcomes if infected with Covid-19 (REFERENCES:https://pubmed.ncbi.nlm.nih.gov/10256416/,?https://pubmed.ncbi.nlm.nih.gov/17460038/), any delay in undergoing bariatric surgery may lead to the patient's worsening health condition and increased?risk of more severe Covid-19 disease if infected. In addition a recent?study from [facility] published in [facility] [facility] on 04/09/2021 ([email or web address]) found that, among patients with obesity, substantial weight loss achieved with surgery was associated with improved outcomes of COVID-19 infection. The findings suggest that obesity can be a modifiable risk factor for the severity of COVID-19 infection. In addition, the patient met the BMI-criteria for bariatric surgery based on the BMI on initial presentation. The patient should not be penalized for achieving such weight loss because ?it is not sustainable long-term without surgical intervention and it was achieved in preparation for bariatric surgery ?under my direction and based on my published research ([email or web address]).pdf and?https://www.soard.org/article/[email or web address](09)32328-X/pdf) ?that a 10% preoperative weight loss improves long-term weight loss after surgery and reduces perioperative complications.? Insurance carriers such as [facility] have endorsed my recommendations ?and have included in their policies criteria to include a 10% preoperative weight loss requirement. PROCEDURE: Esophago-gastroscopy, laparoscopic repair of incarcerated diaphragmatic hernia, laparoscopic lysis of adhesions, laparoscopic sleeve gastrectomy and laparoscopic gastropexy INDICATIONS: This is a 28 year-old female who was electively scheduled for laparoscopic, possibly open sleeve gastrectomy. The risks and complications of the procedure were discussed with the patient in advance, particularly the possibility of ; pulmonary embolism; staple line leak; bleeding; GERD; cardiac, pulmonary, or renal complications; as well as long-term problems such as insufficient weight loss, vitamin deficiency, strictures, or ulcers. The patient understood all the risks, and was in agreement to proceed with surgery. DESCRIPTION OF PROCEDURE: After informed consent was obtained from the patient, the patient was given preoperative antibiotics, and was transferred to the operating room. After successful induction of general anesthesia, pneumatic compression devices were placed on both lower extremities. An upper endoscopy was performed next. The oropharynx and esophagus appeared to be within normal limits. There was a diaphragmatic hernia present of moderate size consistent with the findings of the preoperative upper GI. The stomach was entered. Then after all fluid and air were suctioned and the stomach was fully decompressed, the scope was withdrawn and secured in the mid esophagus. The patient was then prepped and draped in the usual sterile manner, and abdominal access was established at the right upper quadrant with the Alonzo technique. A 12 mm blunt port was inserted, and the abdomen was insufflated with CO2 to a pressure of 15 mmHg. Under direct visualization, additional ports were placed, specifically two 5 mm Versi-step ports to the left upper quadrant, and a 5 mm Versi-Step port to the right upper quadrant. 1% lidocaine plain was used to infiltrate all port sites as well as all fascia defects. Using the EndoClose suture passer device, I placed a #1 Polysorb tie across the falciform ligament in order to retract it up against the abdominal wall and prevent injury of the ligament with our instruments during the procedure. Following that, the patient was placed in a steep reverse Trendelenburg position. An additional 5 mm port was placed to the right flank for the Mediflex retractor that was used to retract the left lobe of the liver. The gastro-esophageal fat pad was opened with the ultrasonic device (Thunderbeat, Olympus) and the anterior esophagus and hiatus were exposed. The angle of His was opened with the ultrasonic device the fundus of the stomach from any diaphragmatic and splenic attachments. I then opened the gastrocolic ligament between the transverse colon and the greater curvature of the stomach with the ultrasonic device to enter the lesser sac and facilitate the ligation of the short gastric vessels. I started at a mid-point along the greater curvature and using the Thunderbeat, all short gastric vessels were divided all the way to the angle of His until the left chhaya was completely dissected at its entirety. I then divided the gastro-colic ligament distally to a distance of about 3-4 cm proximal to the pylorus. There were extensive congenital adhesions between the pancreas and posterior gastric wall. Those were lysed completely with the ultrasonic device. Adhesiolysis took approximately 45 min to complete. There was an obvious significant-sized hiatal hernia. I continued dissecting along the hiatus toward the left chhaya and the angle of His. I fully mobilized the fat pad that was incarcerated in the hernia. I then continued by dissecting even further into the posterior retro-esophageal space all the way to the angle of His. I continued to mobilize the esophagus into the mediastinum circumferentially. Both vagal nerves were seen and preserved. At that point, I was able to have at least 3 to 5 cm of esophagus into the abdomen.? After I completely mobilized the esophagus from both the left and right chhaya and I had a good mobilization of the esophagus circumferentially, I closed the hernia defect with three interrupted #0 Surgidac sutures using the Endo Stitch device, two of which was placed posterior and one of which anterior to the esophagus. ? The stomach was then divided transversely with two Endo JAMIR-45 purple and four JAMIR-6s0 articulating purple loads using the [employer] stapler and loads. Every effort was made that the gastric sleeve had a tubular shape and an even caliber throughout. Once the sleeve resection was completed, the staple line of the gastric sleeve was reinforced with Hemoclips. The resected stomach was retrieved without difficulty from the Alonzo port. A gastropexy was then performed in order to prevent postoperative GERD and partial gastric volvulus. Several interrupted 2.0 Surgidac sutures were placed between the sleeve's staple line and the previously divided greater omentum and gastro-colic ligament using the Endo-Stitch device. ?An upper endoscopy was performed. There was no narrowing at the GE junction. The scope was easily advanced all the way to the pylorus which was clearly visualized. There was no narrowing anywhere and the sleeve's caliber was even throughout. The sleeve's staple line was inspected and there was no evidence of ischemia, bleeding or dehiscence. At that point the gastroscope was withdrawn from the patient?s mouth while we were decompressing the bowel and the stomach from any remaining air. I looked into the lesser sac to see how the sleeve was situating and it was situating well. There was no bleeding from the staple line, spleen, or short gastric vessels. The Mediflex retractor was removed, and the undersurface of the liver was inspected and there was no bleeding. The patient was placed in supine position. I closed the fascial defect of the 12 mm port site with a figure of eight #1 Polysorb suture. Then 30cc Ropivacaine plain with 10 mg of Dexamethasone were used to infiltrate the fascial closure as well as all skin incisions. At this point, the abdomen was deflated, all ports were removed under direct vision, and no bleeding was noted from any of the port sites. The skin incisions were irrigated with saline and were closed with 4-0 absorbable monofilament sutures. Steri-Strips and OpSites were used to cover all incisions. The patient was extubated and was transferred in stable condition to the recovery room for further care. I was present and performed all garcia parts of the procedure. Mr. Prince was the psychologist research assistant. There were no residents to assist with this case. Jorge L Palmer MD, PhD, FACS Surgeon: Elvis Palmer MD Anesthesia: GETA, local and other (TAP block ) Was an Statement Clerks Manager used for this Procedure?: No Statement Clerks Manager: Ashley Sahu Estimated blood loss (mL): 10 IV fluids (mL): 2,500 Urine output (mL): 0 (No Koehler to record output) Pathology: other (Stomach) Condition: stable Disposition: PACU
--- NOTE | 2023-07-22 07:43 | PM.PNGS ---
Subjective Subjective Date of Service: 07/23/23 Interval history: Feels well. Mild incisional pain. She is tolerating phase 1 bariatric diet Physical Exam Vital Signs: Vital Signs: Last Vital Signs Temp 97.9 F 07/22/23 06:34 Pulse 79 07/22/23 06:34 Resp 18 07/22/23 06:34 BP 120/77 07/22/23 06:34 Pulse Ox 97 07/22/23 06:34 O2 Del Method Room Air 07/22/23 06:34 BMI result Body Mass Index 41.2 GI: Inspection: Yes normal to inspection, Yes incision (clean, dry and intact) and Yes obesity Palpation (GI): Soft to palpation Extrem: Right lower extremity: normal to inspection (no calf tenderness) Left lower extremity: normal to inspection (no calf tenderness) Objective Data Active Medications Albuterol Sulfate (Albuterol Sulfate (0.083%) 2.5 Mg/3 Ml Vial.Neb) 2.5 mg INHALE ONCE PRN PRN Reason: Shortness of Breath/Wheezing Fentanyl (Fentanyl Citrate/Pf 100 Mcg/2 Ml Vial) 25 mcg IVPUSH Q5M PRN; Protocol PRN Reason: Pain, Moderate(Pain Scale 4-6) Stop: 07/22/23 13:07 Hydromorphone HCl (Hydromorphone Hcl 0.5 Mg/0.5 Ml Syringe) 0.5 mg IVPUSH Q5M PRN; Protocol PRN Reason: Pain, Severe (Pain Scale 7-10) Stop: 07/22/23 13:07 Lactated Ringer's (Lr) 1,000 mls @ 100 mls/hr IVCONT .Q10H [facility] Last Admin: 07/22/23 06:31 Dose: 100 mls/hr Documented By: JUAN Lactated Ringer's (Lr) 1,000 mls @ 999 mls/hr IV .Q1H1M MODE Stop: 07/22/23 08:00 Last Admin: 07/22/23 06:32 Dose: 999 mls/hr Documented By: JUAN Labs 07/22/23 11:16 07/22/23 11:16 Labs: Laboratory Results - last 24 hr 07/22/23 06:02 Urine Test NEGATIVE Procedures Date of Service Date of Service: 07/23/23 Progress Note: A&P Assessment and plan (1) Morbid obesity: Status: Acute Assessment and Plan: s/p laparoscopic sleeve gastrectomy, lysis of adhesions, diaphragmatic hernia repair and gastropexy Doing well Will check am labs and if OK the patient will be discharged home (2) Seropositive rheumatoid arthritis: Status: Acute (3) GERD (gastroesophageal reflux disease): Status: Acute (4) S/P laparoscopic sleeve gastrectomy: Status: Acute (5) S/P repair of paraesophageal hernia: Status: Acute (6) Diaphragmatic hernia: Status: Acute Time Spent With Patient Time: Total time managing care of this patient today ____ minutes. Quality Stroke Does the patient have a stroke diagnosis?: No VTE Prior VTE?: No VTE Risk Level:: Surgical - moderate VTE Device Contraindication: N/A - Device Ordered VTE Drug Contraindication: Treatment Not Indicated
--- NOTE | 2023-07-22 08:02 | PHA.MEDREC ---
Pharmacy Consult ? Medication Reconciliation Pharmacy has completed the medication reconciliation. Reviewed med rec done by nursing
--- NOTE | 2023-07-22 10:46 | P.DS_ITS ---
DS: Providers Provider Date of Service: 07/23/23 Date of admission: 07/22/23 06:00 Primary care physician: Marzena Main MD DS: Diagnosis Discharge Diagnosis (1) Morbid obesity: Status: Acute (2) Seropositive rheumatoid arthritis: Status: Acute (3) GERD (gastroesophageal reflux disease): Status: Acute DS: Summary Hospital Course Hospital Course: ADMITTING DIAGNOSIS: Morbid obesity Chest pain Anti-cardiolipin antibody positive, rheumatoid arthritis Pulmonary nodules Asthma Numbness in both hands Polyarthritis Myofascial pain syndrome ? DISCHARGE DIAGNOSIS: same, s/p laparoscopic sleeve gastrectomy and repair diaphragmatic hernia with gastropexy ? PAST SURGICAL HISTORY:?cholecystectomy, , shoulder surgery, breast biopsy ? PROCEDURE: upper endoscopy, laparoscopic sleeve gastrectomy and repair of diaphragmatic hernia with gastropexy ? DISCHARGE SUMMARY: ? History of Present Illness: ? The patient is a? 28? year-old woman with a BMI of? ?41.2 ? kg/m2 and associated co-morbidities as described above. The patient had extensive work-up, lost? 32.2 ? lbs preoperatively and was electively scheduled for laparoscopic, possible open sleeve gastrectomy and gastropexy. Risks and complications of the surgery were discussed with the patient in advance, particularly the possibility of , pulmonary embolism, anastomotic leak, bleeding, bowel injury, GERD, cardiac, renal or pulmonary complications. The patient understood all the risks and was in agreement with the surgical plan. ? Hospital Course: ? The patient underwent an uneventful laparoscopic sleeve gastrectomy with gastropexy and repair of diaphragmatic hernia on the day of admission. Postoperatively, the patient was transferred to the surgical floor. The patient received IV Acetaminophen and IV dilaudid for pain control. Patient was started on bariatric phase 1 diet POD #0. On postoperative day one, the patient was feeling well without nausea, vomiting, fevers, or tachycardia. The patient had some mild incisional pain and the abdomen was soft.? ? On the morning of postoperative day one, the patient was continued on 1 ounce of water or ice every half hour. During the day, the patient did fairly well, having some incisional pain, but able to ambulate adequately and to tolerate liquids well. ? Since the patient is doing well, we decided that the patient was ready to be discharged. The patient was given instructions to follow-up with me next week and to call my office for any fever over 101, persistent abdominal pain, nausea, vomiting, GERD, symptoms of DVT such as calf tenderness, or leg swelling, or pulmonary embolism such as chest pain or shortness of breath.? The patient was also instructed to drink 40-60 ounces of liquids per day using the 1-ounce cups. The patient had been given prescriptions for Tylenol for pain, Zofran prn for nausea, and pantoprazole and carafate previously. The patient was encouraged to ambulate and use the incentive spirometer. The patient was allowed to shower, but no baths, and encouraged to stay active at home. All of these instructions were given to the patient personally. All questions were answered and the patient understood all instructions, the instructions were also given to the patient in print. Time Attestation Discharge Coordination Time (in mins): 30 Quality: Safe Use of Opioids Does Pt have an Active Cancer Diagnosis on the Problem List?: No Quality: Stroke Does the patient have a stroke diagnosis?: No Physical Exam Vital Signs: Vital Signs: Last Vital Signs Temp 97.4 F 07/22/23 10:31 Pulse 80 07/22/23 10:41 Resp 13 07/22/23 10:41 BP 167/108 H 07/22/23 10:41 Pulse Ox 100 07/22/23 10:41 O2 Del Method Simple Mask 07/22/23 10:41 FiO2 45 07/22/23 10:41 BMI result Body Mass Index 41.2 DS: Data Data Completed and Pending Pending studies at discharge: Pending at discharge 07/22/23 09:53 Surgical [PTH] Routine Labs on day of discharge: Laboratory Results - last 24 hr 07/22/23 06:02 Urine Test NEGATIVE Discharge Plan Discharge Anticipated Discharge Date/Time: 07/23/23 10:00 Patient Disposition: Home, Self-Care Discharge Diagnosis: s/p laparoscopic sleeve gastrectomy with gastropexy and hiatal hernia repair Referrals: Marzena Strong MD [Primary Care Provider] - 1 Week Discharge Medications: Continued albuterol sulfate [Ventolin HFA] 90 mcg/actuation HFA aerosol inhaler 2 puff inhalation Q4-6H PRN (Reason: Wheezing) pantoprazole 40 mg tablet,delayed release (DR/EC) 40 mg PO DAILY Qty: 90 0RF sucralfate 100 mg/mL suspension 10 ml PO BID Qty: 600 2RF ondansetron 4 mg tablet,disintegrating 4 mg PO Q12H Qty: 20 0RF Rx Instructions: Use only if you have nausea Discontinued lisinopril-hydrochlorothiazide 10-12.5 mg tablet 1 tab PO DAILY omeprazole 40 mg capsule,delayed release(DR/EC) 40 mg PO DAILY@0630 polyethylene glycol 3350 [Miralax] 17 gram powder in packet 17 g PO DAILY Qty: 14 0RF Rx Instructions: Mix each packet with 8oz of water, or Gatorade zero or crystal light and do 7 packets on 07/20/23 and another 7 packets on 07/21/23. Discharge Orders: Discharge Order (Routine); Ordered 07/23/23 Ordered By: Elvis Palmer Activity on Discharge: No heavy lifting Stand Alone Forms: Patient Portal Discharge page Print Language: Taiwanese Care Plan Goals: weight loss Health Concerns: morbid obesity Plan of Treatment: No tub baths, sex or returning to work until discussed at first post op appointment. No alcohol, tobacco or illegal drug use. Continue to use incentive spirometer hourly while awake. Walk in home for 5- 10 minutes every 2 hours during the first week. Wear abdominal binder with activity. Follow all meal plan instructions from your bariatric surgeon. Review bariatric handbook and call with any questions. Discharge Instructions 1. Please call your doctor or come back to the emergency room should any new s ymptoms arise. 2. Activity: abstain from alcohol,? limited stair climbing, no bending, no driving, no exercise, no illicit substances, no lifting, no sex, no tub bath, no work. 4. Diet: follow your bariatric surgeons recommendations for advancing diet. 5. Dressing Change/Wound Care: Your incisions are covered with waterproof dressings. You can shower with these and pat dry. Do not rub over dressings or incisions. If the area is tender, you may apply an ice pack for short intervals (no more than 20 minutes on, followed by at least 20 minutes off). Do not apply heat. Do not use creams, lotions, or topical antibiotics unless instructed to do so by your surgeon. 6. Call your doctor if: - Your temperature exceeds 101.5 F - You experience excessive pain or swelling - You have an unexpected reaction to medication - You have excessive bleeding - You experience continued vomiting/nausea - Your incision begins to separate - Your incision shows signs of infection such as increased redness, swelling, excessive pain, heat, or drainage (light blood or clear fluid is normal) General instructions: No lifting greater than 10 lbs for the next 6 weeks[address] within 24 hours of taking narcotic pain medications. If you do not move your bowels in the next 2 days, please take milk of magnesia over the counter. Please follow the post op diet and do not advance your diet until you are seen in the office in about 2 weeks. Please walk around your home every hour or two to prevent blood clots from forming in your legs. You do not need to wake from sleeping to walk. Please sleep in a bed or couch to prevent kinking at the hips and knees. Please take your incentive spirometer (your lung crop and soil technician) home with you and use it for the next few days to prevent pneumonias. You may shower, no hot tubs, baths or swimming pools. Please call the office with any questions or concerns such as increasing abdominal pain, fever, chills, shortness of breath, chest pain, leg pain or swelling, or redness or drainage from your incisions. Please make sure you are consuming 40-60 ounces of total fluids per day. Avoid all carbonation. Do not hesitate to contact the office with any questions at . The patient's medical history has been reviewed and they are considered low risk for post op DVT and therefore DVT prophylaxis is not considered necessary. Travel after surgery was reviewed. The patient has not disclosed any travel plans during the first 30 days after surgery and they have been advised that within the first 30 days after surgery any bus, plane, train or car travel over 2 hours in duration is contraindicated due to the possibility of developing blood clots from immobility. Any travel, needs to include periods of ambulation of 10 minutes in duration every 2 hours.? The patient was instructed to discuss any plans for travel during this period with their bariatric surgeon. Assessment: s/p laparoscopic sleeve gastrectomy with gastropexy and hiatal hernia repair Discharge Date/Time: 07/23/23 09:34
[2023-07-22] MEDS: HYDROmorphone HCl 0.5 MG/0.5 ML SYRINGE IVPUSH ×2 (11:13→11:21)
[2023-07-22 11:26] LABS: Hematocrit 39.7 % (37.0-47.0); Hemoglobin 13.2 g/dl (12.0-16.0)
[2023-07-22 11:57] LABS: Anion Gap 12 (12-20); Blood Urea Nitrogen 7 mg/dL (9-16); Calcium 8.6 mg/dL (8.4-10.2); Carbon Dioxide 22 mmol/L (22-29); Chloride 110 mmol/L (96-108); Creatinine Clr Calc Pharmacy 112.1; Estimated Glomerular Filt Rate > 60; Glucose Random 151 mg/dL (60-115); Potassium 3.7 mmol/L (3.3-5.1); Sodium 140 mmol/L (135-145)
[2023-07-22] MEDS: ceFAZolin Sodium/Dextrose,Iso 2 GM/50 ML PIGGYBACK IV (13:07)
[2023-07-22] MEDS: HYDROmorphone HCl 0.5 MG/0.5 ML SYRINGE 0.25 MG IVPUSH ×2 (14:10→23:57)
[2023-07-22] MEDS: Acetaminophen 1,000 MG/100 ML PIGGYBACK 16.7 MG IV ×2 (14:11→19:55)
[2023-07-22] MEDS: ondansetron HCL 4 MG/2 ML VIAL IVPUSH (17:01)
[2023-07-22] MEDS: Famotidine/PF 20 MG/2 ML VIAL IVPUSH (19:55)
[2023-07-22] MEDS: 0.9 % Sodium Chloride Flush 3 ML SYRINGE IVFLUSH (19:55)
[2023-07-23] MEDS: Acetaminophen 1,000 MG/100 ML PIGGYBACK 16.7 MG IV (01:45)
[2023-07-23] MEDS: ondansetron HCL 4 MG/2 ML VIAL IVPUSH (01:45)
[2023-07-23 03:13] VITALS: BP 132/67; PULSE 82; RESP 16; TEMP 36.1; O2SAT 96
[2023-07-23 07:15] VITALS: BP 142/77; PULSE 77; RESP 16; TEMP 36.8; O2SAT 98
[2023-07-23 07:25] LABS: MANUAL DIFF FLAG NO
[2023-07-23 07:50] LABS: Anion Gap 12 (12-20); Blood Urea Nitrogen 7 mg/dL (9-16); Calcium 8.7 mg/dL (8.4-10.2); Carbon Dioxide 22 mmol/L (22-29); Chloride 111 mmol/L (96-108); Estimated Glomerular Filt Rate > 60; Glucose Random 118 mg/dL (60-115); Potassium 3.7 mmol/L (3.3-5.1); Sodium 141 mmol/L (135-145)
[2023-07-23 07:51] LABS: Basophils Percent Auto 0.1 % (0-2); Hematocrit 35.6 % (37.0-47.0); Hemoglobin 11.9 g/dl (12.0-16.0); Imm Gran Abs Auto 0.05 X10*3/uL (0.00-0.03); Imm Gran Pct Auto 0.5 % (0.0-0.4); Lymphocytes Absolute Auto 1.4 X10*3/uL (1.2-4.9); Lymphocytes Percent Auto 14.2 % (20-40); Mean Corpuscular HGB Conc 33.4 g/dl (31.0-35.0); Mean Corpuscular Hemoglobin 27.9 pg (27.0-33.0); Mean Corpuscular Volume 83.6 fL (80.0-98.0); Mean Platelet Volume 11.8 fL (9.4-12.3); Monocytes Absolute Auto 0.7 X10*3/uL (0.1-1.2); Monocytes Percent Auto 6.8 % (2-11); Neutrophils Absolute Auto 7.6 x10*3/uL (2.0-8.3); Neutrophils Percent Auto 78.4 % (45-73); Platelet Count 188 X10*3/uL (160-400); Red Blood Count 4.26 X10*6/uL (4.20-5.50); Red Cell Distribution Width 14.8 % (11.0-16.0); White Blood Count 9.7 X10*3/uL (4.8-10.8)
--- NOTE | 2023-07-23 08:49 | MHC.CM.PN ---
CM ME WITH PT WITH [employer]OLING [employer]INE[employer] TECH PT LIVES WITH HER AND IS INDEPENDENT WITH CARE SHE HAS NO DME AND NO SERVICES PT DECLINES TO COMPLETE A HCP PCP: SILVERIO TERRAZAS DCP: HOME TODAY WITH NO SERVICES VIA PRIVATE TRANSPORT
== END 2023-07-23 09:34 | disposition home or self-care (01) | DRG 403 ==
LOC: HO.SSSA 10:46 → HO.S3 11:05
PROVIDERS: Nurse Practitioner; Physician Assistant Surgical; Admitting Provider Surgery; PCP Internal Medicine; Visit Provider Surgery
PROC: 0DB64Z3 Excision of Stomach, Percutaneous Endoscopic Approach, Vertical (ICD-10-PCS; CPT 43845; principal; 2023-07-22 07:30)
DX: E66.01 Morbid (severe) obesity due to excess calories (principal); D68.61 Antiphospholipid syndrome; K44.0 Diaphragmatic hernia with obstruction, without gangrene; Q43.3 Congenital malformations of intestinal fixation; M05.9 Rheumatoid arthritis with rheumatoid factor, unspecified; J45.909 Unspecified asthma, uncomplicated; R20.0 Anesthesia of skin; K21.9 Gastro-esophageal reflux disease without esophagitis; Z68.41 Body mass index [BMI] 40.0-44.9, adult; Z87.891 Personal history of nicotine dependence; Z79.899 Other long term (current) drug therapy
CPT/HCPCS: 36415; 80048; 80053; 80061; 81025; 83036; 83525; 84443; 85014; 85018; 85025; 85610; 85730; 86140; 86850; 86900; 86901; 88307; 88342; A4649; C9088; C9145; J0131; J0690; J1100; J1170; J2250; J2405; J2704; J2795; J3010; J7120

== ENCOUNTER → 2023-07-22 06:00 | Outpatient (BNV) | payer MEDICAID, SELFPAY | PROVIDERS: Admitting Provider Surgery; PCP Internal Medicine; Visit Provider Surgery | DX: E66.01 Morbid (severe) obesity due to excess calories (principal); Z68.41 Body mass index [BMI] 40.0-44.9, adult; K44.9 Diaphragmatic hernia without obstruction or gangrene; Z98.84 Bariatric surgery status | CPT/HCPCS: 43281; 43659; 43775; 99024; 99238 ==

== ENCOUNTER 2023-07-29 09:47 | Outpatient (AMB) | payer MEDICAID, SELFPAY ==
--- NOTE | 2023-07-29 09:56 | A.OFFVIS_ITS ---
Intake VS Expanded 07/29/23 10:12 BP 132/83 Blood Pressure Location Rt brachial Blood Pressure Position Sitting Pulse 72 Pulse Source Pulse Oximeter Temp 97.6 F Temperature Source Temporal Artery Scan Pulse Oximetry 100 Oxygen Delivery Method Room Air Height 5 ft 1 in Weight 213 lb 12.8 oz BMI 40.4 Body Fat % 46.2 Body Fat Mass 98.8 Fat Free Mass 114.8 Visceral Fat Rating 11.0 Body Water % 38.6 Body Water Mass 82.4 Muscle Mass/Score 109.2 Basal Metabolic Rate/Score 1,654 Intake Visit Reasons: (OV) PO LSG 07/22/23 Allergies No Known Allergies Allergy (Verified 07/29/23 10:14) HPI HPI Comments History of Present Illness Details Patient is a pleasant 28-year-old female who returns to the office today in follow-up. She is 6 days post sleeve gastrectomy with hiatal hernia repair performed on 07/22/2023. She is tolerating 3 celebrate 4 in 1 shakes with 1 scoop each and approximately 40 oz of fluid. She is moved her bowels and has no complaints of pain. [facility] Medical History (Updated 07/26/23 @ 00:02 by Scout Da Silva) GI bleed Arthritis GERD (gastroesophageal reflux disease) Depression Anxiety HTN (hypertension) Syncope Anti-cardiolipin antibody positive Rash and other nonspecific skin eruption Hiatal hernia Pulmonary nodules Chest pain Early stage of Obesity, morbid, BMI 40.0-49.9 Missed menses COVID-19 Asthma Rheumatoid arthritis Abnormal laboratory test Numbness in both hands Polyarthritis Myofascial pain syndrome Surgical History S/P laparoscopic sleeve gastrectomy Hx of elbow surgery H/O colonoscopy Hx of cholecystectomy H/O breast biopsy Hx of section Family History Maternal Grandmother Diabetes Father HTN (hypertension) Mother HTN (hypertension) Maternal Aunt Colon cancer Social History Household Members: Family Housing: House Are you a primary healthcare science specialist to a significant other at home: No Do you presently have visiting nurse or other home services: No Alcohol intake: never Patient Tobacco Use Status: Former Tobacco user Tobacco use type: Cigarette service: No Gender identity: Female Physical Exam GI Inspection: Yes incision (Mild ecchymosis about the midline incision otherwise clean, dry, intact.) Assessment & Plan Assessment & Plan (1) S/P laparoscopic sleeve gastrectomy: Code(s): Z98.84 - Bariatric surgery status Plan: POD 6 s/p LSG with hiatal hernia repair on 07/22/[address] Palmer Weight loss prior to surgery was 52.7 pounds or 21 % TBWL. Original weight on 10/18/2022 was 250.2 pounds and op weight was 197.5 pounds. Be sure to text Dr Palmer exactly 1 week after surgery your weight from your home scale so he can adjust your meal plan. Continue meal plan until f/u usama Rangel in 2 weeks May shower, no submersion in bath for another week Continue abdominal binder with activity and exercise for the next 2 weeks. Exercise prior to surgery was []walking outside and going to the gym, may resume No abdominal exercises for 6 weeks post operatively Will be emailed link to post op video for review Reminded of the pace of drinking, 2 mL per minute, 1 oz/15 min. Coding Level of Care Code Global (34562) Diagnoses S/P laparoscopic sleeve gastrectomy Z98.84
[2023-07-29 10:12] VITALS: BP 132/83; PULSE 72; TEMP 36.4; O2SAT 100; BMI 40.4
== END 2023-07-29 10:16 | disposition home or self-care (01) ==
PROVIDERS: PCP Internal Medicine; Visit Provider Physician Assistant Surgical
DX: E66.01 Morbid (severe) obesity due to excess calories (principal); Z68.41 Body mass index [BMI] 40.0-44.9, adult; Z90.3 Acquired absence of stomach [part of]; Z98.84 Bariatric surgery status
CPT/HCPCS: 99024

== ENCOUNTER → 2023-07-29 09:47 | Outpatient (BNVA) | payer MEDICAID, SELFPAY | PROVIDERS: PCP Internal Medicine; Visit Provider Physician Assistant Surgical | DX: Z48.815 Encounter for surgical aftercare following surgery on the digestive system (principal); Z98.84 Bariatric surgery status | CPT/HCPCS: 99212 ==

== ENCOUNTER → 2023-08-05 09:09 | Outpatient (BNVA) | payer MEDICAID, SELFPAY | PROVIDERS: PCP Internal Medicine; Visit Provider Physician Assistant Surgical ==

== ENCOUNTER → 2023-08-12 09:18 | Outpatient (BNVA) | payer MEDICAID, SELFPAY | PROVIDERS: PCP Internal Medicine; Visit Provider Physician Assistant Surgical ==

== ENCOUNTER → 2023-08-25 14:34 | Outpatient (BNVA) | payer MEDICAID, SELFPAY | PROVIDERS: PCP Internal Medicine; Visit Provider Physician Assistant Surgical | DX: Z98.84 Bariatric surgery status (principal) ==

== ENCOUNTER → 2023-08-26 09:14 | Outpatient (BNVA) | payer MEDICAID, SELFPAY | PROVIDERS: PCP Internal Medicine; Visit Provider Physician Assistant Surgical ==

== ENCOUNTER 2023-09-03 16:00 | Outpatient (AMB) | payer MEDICAID, SELFPAY ==
[2023-09-03 14:02] VITALS: BMI 38.7
--- NOTE | 2023-09-03 14:02 | MHC.OFFVISWM ---
VS Expanded 09/03/23 14:02 Height 5 ft 1 in Weight 204 lb 12.8 oz BMI 38.7 Intake Visit Reasons: (TV) PO LSG 07/22/23 Clinical Informaticist Required: Yes Clinical Informaticist Name: office cmi Allergies No Known Allergies Allergy (Verified 07/29/23 10:14) Medication List - Last Reconciled 09/03/23 by [place] Villalta albuterol sulfate 90 mcg/actuation (Ventolin HFA) 2 puffs inhalation Q4-6H PRN pantoprazole 40 mg PO DAILY sucralfate 10 mL PO BID HPI Comments Details: This?a?28?yo female who is s/p LSG with hiatal hernia repair on?07/22/2023. Presents for 6 week post op visit. Weight today is 204.8 pounds, with a BMI of 38.7. There has been a 45.4 pound weight loss,(initial weight 250.2 pounds) since starting the program on 10/18/2022 reflecting a 18.1 % total body weight loss and a weight loss of 10.8 pounds since surgery (operative weight 215.6 pounds) reflecting a 5% TBWL since surgery. No complaints of nausea, emesis, abdominal pain or reflux. Reports infrequent but normal bowel movements every 1-2 days and uses stool softeners regularly. Present meal plan includes: celebrate 4 in 1, 2 scoops in 8 oz almond milk 10-12, 2-4 ZP bar 6-9 p drinking 32-40 oz water ? Exercise routine includes: walking outside around block 2 x per day no car right now [facility] Medical History (Updated 07/26/23 @ 00:02 by cSout Da Silva) GI bleed Arthritis GERD (gastroesophageal reflux disease) Depression Anxiety HTN (hypertension) Syncope Anti-cardiolipin antibody positive Rash and other nonspecific skin eruption Hiatal hernia Pulmonary nodules Chest pain Early stage of Obesity, morbid, BMI 40.0-49.9 Missed menses COVID-19 Asthma Rheumatoid arthritis Abnormal laboratory test Numbness in both hands Polyarthritis Myofascial pain syndrome Surgical History S/P laparoscopic sleeve gastrectomy Hx of elbow surgery H/O colonoscopy Hx of cholecystectomy H/O breast biopsy Hx of section Family History Maternal Grandmother Diabetes Father HTN (hypertension) Mother HTN (hypertension) Maternal Aunt Colon cancer Social History Household Members: Family Housing: House Are you a primary healthcare administrative assistant to a significant other at home: No Do you presently have visiting nurse or other home services: No Alcohol intake: never Patient Tobacco Use Status: Former Tobacco user Tobacco use type: Cigarette service: No Gender identity: Female Physical Exam Vital Signs: BMI result Body Mass Index 38.7 Telehealth Telehealth Telehealth Platform: Telephone Location of provider rendering services: practice address Location of patient: address on file Patient Identification confirmed using: Name, : Yes Telehealth method: voice only Patient verbally consented to treatment: Yes Patient verbally consented to billing insurance company: Yes Patient informed of any privacy concerns related to visit: Yes Minutes spent on Phone/Video with Pt.: 20 Assessment & Plan Assessment & Plan (1) S/P laparoscopic sleeve gastrectomy: Code(s): Z98.84 - Bariatric surgery status Category: Surgical Plan: Discussed the critical need of exercise. Patient has been walking outside twice per day but not tracking calories. This walk is approximately 25 minutes to 30 minutes each. She will continue her current meal plan. She does not have a car currently and can not go to the gym, discussed doing home videos and tracking her calories using the [employer] chilo while walking outside. She has not been sending measurements weekly and encouraged to do so.
== END 2023-09-03 16:10 | disposition home or self-care (01) ==
LOC: HO.HBS 16:01
PROVIDERS: PCP Internal Medicine; Visit Provider Physician Assistant Surgical
DX: Z98.84 Bariatric surgery status (principal)
CPT/HCPCS: 99024

== ENCOUNTER → 2023-09-03 16:00 | Outpatient (BNVA) | payer MEDICAID, SELFPAY | PROVIDERS: PCP Internal Medicine; Visit Provider Physician Assistant Surgical | DX: Z90.3 Acquired absence of stomach [part of] (principal) | CPT/HCPCS: 99212 ==

== ENCOUNTER → 2023-09-09 10:22 | Outpatient (BNVA) | payer MEDICAID, SELFPAY | PROVIDERS: PCP Internal Medicine; Visit Provider Physician Assistant Surgical ==

== ENCOUNTER 2023-10-01 09:24 | Outpatient (REF) | payer MEDICAID, SELFPAY ==
--- NOTE | ~2023-10-01 | CT_ITS ---
EXAMINATION: CT CHEST WITHOUT CONTRAST CLINICAL INFORMATION: Other nonspecific abnormal finding lung field. COMPARISON: CT angiography chest 10/24/2022. TECHNIQUE: Multidetector volumetric CT imaging of the chest was done. Axial MIP volume rendering provided. Sagittal and coronal reformatted images were obtained. This CT examination was performed using dose optimization techniques as appropriate, variously including the following: *Automated exposure control *Adjustment of mA and/or kV according to patient size (this includes techniques or standardized protocols for targeted exams where dose is matched to indication/reason for exam; i.e. 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 Surgical husam also noted overlying the region of the stomach. Lungs appear clear. LUNGS: -There are stable focal cystic changes in the left apex and posterior segment left upper lobe, related to mild paraseptal emphysema. -Minimal cystic changes noted in the lateral right apex. These findings are not significantly changed from 2022. -There is a pleural-based 3 mm nodule in the lateral right upper lobe, unchanged (series 4, image 203). -The 3 mm nodule in the inferior right upper lobe abutting the minor fissure, with pleural tag present, consistent with intrapulmonary lymph node. This is stable. (Series 4, image 258). -3 mm pleural-based nodule superior segment left lower lobe laterally is unchanged (series 4, image 351). -2 small nodules measuring 2, and 3 mm are present in the mid left major fissure, consistent with intrapulmonary lymph nodes and unchanged. -There are no new or suspicious nodules. -There are no consolidations or groundglass opacities. -There is minimal small airway thickening seen relatively diffusely throughout both lungs, without significant bronchiectasis or endobronchial filling defects. Findings may represent mild bronchitis. PLEURA: There is no pleural effusion. No pleural mass or thickening. MEDIASTINUM: -Triangular-shaped groundglass opacity in the anterior mediastinal fat is consistent with thymic remnant. -Imaged thyroid is normal. -Two-vessel branching pattern of the aortic arch. -The aorta is normal in caliber and course. -Main pulmonary artery is normal in caliber. -Esophagus appears normal. There is a probable small to moderate-sized type I hiatus hernia. -There is no abnormal lymphadenopathy within the mediastinum or hilum. -Heart size is normal. No pericardial effusion. CORONARY ARTERY CALCIFICATION: Trace LAD and RCA calcifications. AXILLA/CHEST WALL: No lymphadenopathy. UPPER ABDOMEN: -There is diffuse fatty infiltration of the liver. There has been a cholecystectomy. -There has been a gastric sleeve procedure. -There is right hepatic lobe focal fatty sparing. -Remainder of upper abdomen is normal. OSSEOUS STRUCTURES: No lytic or blastic bone lesions. CT/CT chest wo IV con IMPRESSION: 1. No definite active lung disease. 2. Stable paraseptal cystic changes in the left apex and lateral posterior left upper lobe, with minimal changes in the right apex. 3. Mild small airway thickening throughout both lungs, suggestive of mild bronchitis. 4. No suspicious pulmonary nodules. Stable tiny nodules which are benign. 5. Fatty infiltration of the liver. 6. Small moderate-sized type I hiatus hernia. Prior gastric sleeve. 7. Additional answered findings as discussed in the body of the report. Fleischner guidelines were followed.
[2023-10-01 10:00] LABS: MANUAL DIFF FLAG NO
[2023-10-01 10:12] LABS: Basophils Percent Auto 0.7 % (0-2); Eosinophils Absolute Auto 0.1 X10*3/uL (0.0-0.4); Eosinophils Percent Auto 1.7 % (0-4); Hematocrit 41.6 % (37.0-47.0); Hemoglobin 14.1 g/dl (12.0-16.0); Imm Gran Abs Auto 0.01 X10*3/uL (0.00-0.03); Imm Gran Pct Auto 0.2 % (0.0-0.4); Lymphocytes Absolute Auto 1.8 X10*3/uL (1.2-4.9); Lymphocytes Percent Auto 45.5 % (20-40); Mean Corpuscular HGB Conc 33.9 g/dl (31.0-35.0); Mean Corpuscular Hemoglobin 28.7 pg (27.0-33.0); Mean Corpuscular Volume 84.6 fL (80.0-98.0); Mean Platelet Volume 11.5 fL (9.4-12.3); Monocytes Absolute Auto 0.4 X10*3/uL (0.1-1.2); Monocytes Percent Auto 10.2 % (2-11); Neutrophils Absolute Auto 1.7 x10*3/uL (2.0-8.3); Neutrophils Percent Auto 41.7 % (45-73); Platelet Count 209 X10*3/uL (160-400); Red Blood Count 4.92 X10*6/uL (4.20-5.50); Red Cell Distribution Width 14.5 % (11.0-16.0)
[2023-10-01 10:55] LABS: Erythrocyte Sedimentation Rate 2 MM/HR (0-20)
[2023-10-01 11:16] LABS: Alanine Aminotransferase 47 U/L (0-31); Albumin Level 4.5 g/dL (3.5-5.0); Alkaline Phosphatase 81 U/L (39-117); Anion Gap 12 (12-20); Aspartate Amino Transferase 44 U/L (5-31); Bilirubin Total 2.3 mg/dL (0.0-1.0); Blood Urea Nitrogen 6 mg/dL (9-16); C Reactive Protein < 0.10 mg/dL (< or = 0.50); Calcium 9.8 mg/dL (8.4-10.2); Carbon Dioxide 24 mmol/L (22-29); Chloride 108 mmol/L (96-108); Estimated Glomerular Filt Rate > 60; Glucose Random 91 mg/dL (60-115); Potassium 3.1 mmol/L (3.3-5.1); Sodium 141 mmol/L (135-145); Total Protein 7.1 g/dL (6.5-8.0)
== END 2023-10-01 09:25 | disposition home or self-care (01) ==
LOC: HO.CT 09:24
PROVIDERS: Student in an Organized Health Care Education/Training Program; PCP Internal Medicine; Visit Provider Hospitalist
DX: R91.8 Other nonspecific abnormal finding of lung field (principal); M05.9 Rheumatoid arthritis with rheumatoid factor, unspecified
CPT/HCPCS: 36415; 71250; 80053; 85025; 85652; 86140

== ENCOUNTER → 2023-10-01 09:30 | Outpatient (BNV) | payer MEDICAID, SELFPAY | PROVIDERS: PCP Internal Medicine; Visit Provider Radiology Diagnostic Radiology | DX: R91.8 Other nonspecific abnormal finding of lung field (principal) | CPT/HCPCS: 71250 ==

== ENCOUNTER 2023-10-08 09:39 | Outpatient (AMB) | payer MEDICAID, SELFPAY ==
[2023-10-08 09:53] VITALS: BP 112/70; PULSE 69; O2SAT 98; BMI 35.4
--- NOTE | 2023-10-08 09:53 | MHC.OFFVIS ---
Vital Signs 10/08/23 09:53 Height 5 ft 1 in Weight 187 lb 6.287 oz BMI 35.4 BP 112/70 Blood Pressure Location Rt brachial Position Sitting Pulse 69 Pulse Source Pulse Oximeter Pulse Oximetry (%) 98 Oxygen Delivery Method Room Air Intake Visit Reasons: RA/unable to reach MB not set up Intake Note: Pt seen today for follow up. 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 On Actemra every other week. She states that she has been having diffuse pain, headaches, intermittent episodes of diarrhea. She works with a therapist weekly. She does not recall if she ever saw a psychiatrist. She is not currently on any medications for anxiety/depression Initial history: This is a 27-year-old female with seropositive RA who returns for follow-up. She was last evaluated by Dr. House 2 years ago. Patient was started on Cimzia, she mentions that she had a skin rash after the 1st injection and she stopped it. She states that she was then prescribed some medications for rheumatoid arthritis, she does not recall their name. She has not been evaluated by healthcare risk control consultant in 2 years. Patient is complaining of diffuse pain everywhere. In her neck, shoulders, wrists, hands, lower back. She has morning stiffness of her hands lasting 5 minutes. Stated that she no longer wears her ring due to finger swelling. [facility] Medical History GI bleed Arthritis GERD (gastroesophageal reflux disease) Depression Anxiety HTN (hypertension) Syncope Anti-cardiolipin antibody positive Rash and other nonspecific skin eruption Hiatal hernia Pulmonary nodules Chest pain Early stage of Obesity, morbid, BMI 40.0-49.9 Missed menses COVID-19 Asthma Rheumatoid arthritis Abnormal laboratory test Numbness in both hands Polyarthritis Myofascial pain syndrome Surgical History S/P laparoscopic sleeve gastrectomy Hx of elbow surgery H/O colonoscopy Hx of cholecystectomy H/O breast biopsy Hx of section Family History Maternal Grandmother Diabetes Father HTN (hypertension) Mother HTN (hypertension) Maternal Aunt Colon cancer Social History Household Members: Family Housing: House Are you a primary ostomy care nurse to a significant other at home: No Do you presently have visiting nurse or other home services: No Alcohol intake: never Patient Tobacco Use Status: Former Tobacco user Tobacco use type: Cigarette service: No Gender identity: Female Female Reproductive History Menstrual Total pregnancies: 6 Number of Living Children: 3 Ab spontaneous: 3 Review of Systems Const Reports headache(s) ENT Reports headache(s) GI Reports diarrhea Musc Reports arthralgias and Reports stiffness Neuro Reports headache(s) Psych Reports anxiety Physical Exam Vital Signs: Last Vital Signs Pulse 69 10/08/23 09:53 BP 112/70 10/08/23 09:53 Pulse Ox 98 10/08/23 09:53 Oxygen Delivery Method Room Air 10/08/23 09:53 BMI result Body Mass Index 35.4 Const General: cooperative, healthy appearing and comfortable Nutritional Appearance: obese morbidly obese Orientation/consciousness: patient oriented x3 Limitations: no limitations HEENT Head: Yes normocephalic and Yes atraumatic Mouth: moist mucous membranes Resp Effort & Inspection: normal respiratory effort and able to speak in complete sentences Auscultation: clear to auscultation bilaterally Cardio Rate: regular rate Rhythm: regular rhythm Neuro General: patient oriented x3 Extrem Other: Multiple joints but no swelling. No active synovitis today Multiple fibromyalgia tender points Assessment & Plan Assessment & Plan (1) Seropositive rheumatoid arthritis: Comment: +RF +++CCP dx 05/2020 Cimzia 06/2020 DC due to skin rash Enbrel 02/2023-05/2023 DT due to skin rash Actemra effective Code(s): M05.9 - Rheumatoid arthritis with rheumatoid factor, unspecified Category: Medical Plan: This is a 28-year-old female with seropositive RA who presents for follow-up. She is on Actemra every other week. Well with no active synovitis on exam. Inflammatory markers are normal. Continue Actemra every other week Labs before next visit in 3 months (2) High risk medication use: Code(s): Z79.899 - Other nursing home (current) drug therapy Category: Medical Plan: Side effects of Actemra were discussed with the patient in detail including increased risk of infection, Patient fully aware. Advised patient to seek medical care [facility] if patient has an infection and advised patient to stop the medication until the infection is resolved. Patient is sexually active and is currently using the Nexplanon. He states that the Nexplanon has been quite effective for her in the past. I explained to patient that Actemra is contraindicated in and she should let us know if she becomes and stop Actemra (3) Fibromyalgia, primary: Code(s): M79.7 - Fibromyalgia Category: Medical Plan: Start duloxetine 30 mg nightly for 1 week then 60 mg nightly. Patient follows up regularly with a therapist weekly (4) Transaminitis: Code(s): R74.01 - Elevation of levels of liver transaminase levels Category: Medical Plan: Intermittent fluctuating transaminitis. If persistent, will refer to GI Plan I spent 26 minutes reviewing patient's chart, evaluating patient, ordering diagnostic workup, counseling patient and documenting in the chart Orders: Orders Complete Blood Count Auto Diff 3 Months M05.9 - Rheumatoid arthritis with rheumatoid factor, unspecified Comprehensive Met. Panel 3 Months M05.9 - Rheumatoid arthritis with rheumatoid factor, unspecified Erythrocyte Sedimentation Rate 3 Months M05.9 - Rheumatoid arthritis with rheumatoid factor, unspecified C Reactive Protein 3 Months M05.9 - Rheumatoid arthritis with rheumatoid factor, unspecified Medications: New duloxetine Take 1 tab nightly for 1 week then 2 tabs nightly 60 caps 2RF Coding Level of Care Code Est Pt Level 4 (73482) Diagnoses Seropositive rheumatoid arthritis M05.9 High risk medication use Z79.899 Fibromyalgia, primary M79.7 Transaminitis R74.01
== END 2023-10-08 10:23 | disposition home or self-care (01) ==
PROVIDERS: PCP Internal Medicine; Visit Provider Student in an Organized Health Care Education/Training Program
DX: M05.79 Rheumatoid arthritis with rheumatoid factor of multiple sites without organ or systems involvement (principal); Z79.899 Other long term (current) drug therapy; M79.7 Fibromyalgia; R74.01 Elevation of levels of liver transaminase levels
CPT/HCPCS: 99214

== ENCOUNTER → 2023-10-08 09:39 | Outpatient (BNVA) | payer MEDICAID, SELFPAY | PROVIDERS: PCP Internal Medicine; Visit Provider Student in an Organized Health Care Education/Training Program | DX: M05.9 Rheumatoid arthritis with rheumatoid factor, unspecified (principal); M79.7 Fibromyalgia; R74.01 Elevation of levels of liver transaminase levels; Z79.899 Other long term (current) drug therapy | CPT/HCPCS: 99212 ==

== ENCOUNTER 2023-10-14 17:49 | Emergency (ER) | payer MEDICAID, SELFPAY ==
--- NOTE | 2023-10-14 | ECG_ITS ---
Test Reason : nausea Blood Pressure : / mmHG Vent. Rate : 048 BPM Atrial Rate : 048 BPM P-R Int : 112 ms QRS Dur : 084 ms QT Int : 468 ms P-R-T Axes : 030 040 000 degrees QTc Int : 418 ms Sinus bradycardia with Premature supraventricular complexes ST & T wave abnormality, consider anterior ischemia Abnormal ECG When compared with ECG of 24-JUN-2023 16:42, Premature supraventricular complexes are now Present Referred By: Generic ED Physician Electronically Signed By:KADY SO
[2023-10-14 17:58] VITALS: BP 140/90; PULSE 78; O2SAT 98
[2023-10-14 18:30] VITALS: BP 140/91; PULSE 71; RESP 17; TEMP 36; O2SAT 97; BMI 32.7
--- NOTE | 2023-10-14 18:31 | ED.GENADULT ---
HPI - General Adult General Chief complaint: Nausea/Vomiting/Diarrhea Stated complaint: N/V/D, PT THINKS ITS A REACTION TO NEW MEDS Time Seen by Provider: 10/14/23 21:04 Related Data Home Medications ?Medication ?Instructions ?Recorded ?Confirmed albuterol sulfate 90 mcg/actuation 2 puff inhalation Q4-6H PRN 12/23/22 09/03/23 aerosol inhaler (Ventolin HFA) Wheezing tocilizumab 162 mg/0.9 mL 162 mg subcut Q2W 10/08/23 10/08/23 subcutaneous pen injector (Actemra ACTPen) Previous Rx's ?Medication ?Instructions ?Recorded pantoprazole 40 mg tablet,delayed 40 mg PO DAILY #90 tabs 07/16/23 release sucralfate 100 mg/mL oral 10 ml PO BID #600 mL 07/16/23 suspension duloxetine 30 mg capsule,delayed See Rx Instructions PO .COMPLEX 10/08/23 release #60 caps ondansetron 4 mg disintegrating 4 mg PO Q6H PRN nausea and 10/14/23 tablet vomiting #14 tabs Allergies Allergy/AdvReac Type Severity Reaction Status Date / Time No Known Allergies Allergy Verified 10/14/23 18:34 [facility] Past Medical History Medical History GI bleed Arthritis GERD (gastroesophageal reflux disease) Depression Anxiety HTN (hypertension) Syncope Anti-cardiolipin antibody positive Rash and other nonspecific skin eruption Hiatal hernia Pulmonary nodules Chest pain Early stage of Obesity, morbid, BMI 40.0-49.9 Missed menses COVID-19 Asthma Rheumatoid arthritis Abnormal laboratory test Numbness in both hands Polyarthritis Myofascial pain syndrome Surgical History S/P laparoscopic sleeve gastrectomy Hx of elbow surgery H/O colonoscopy Hx of cholecystectomy H/O breast biopsy Hx of section Family History Family History Maternal Grandmother Diabetes Father HTN (hypertension) Mother HTN (hypertension) Maternal Aunt Colon cancer Social History Social History Household Members: Family Housing: House Are you a primary ambulatory care coordinator to a significant other at home: No Do you presently have visiting nurse or other home services: No Alcohol intake: never Patient Tobacco Use Status: Former Tobacco user Tobacco use type: Cigarette Advance Directives: No Advance Directives Information Provided: No Do you have a plan to hurt others: No Plan service: No Gender identity: Female Physical Exam ED Vital Signs: BMI result Body Mass Index 32.7 Course Course Course Narrative: This is a rapid medical exam performed by Hiral Solorio NP: Additional HPI, ROS, PE not included below will be deferred to primary provider. Patient is a 28-year-old female presenting to the ED via EMS complaining of dizziness, headache, nausea, vomiting, diarrhea, chills since this morning. Just started duloxetine for her fibromyalgia. Also complaining of chest pain. Denies sick contacts. Plan: EKG, labs, viral swabs Medications Administered Discontinued Medications Generic Name Dose Route Start Last Admin Trade Name Freq PRN Reason Stop Dose Admin Ondansetron HCl 4 mg 10/14/23 18:35 10/14/23 18:37 Ondansetron Odt 4 Mg Tab.Rapdis TRANSLINGU 10/14/23 18:36 4 mg ONCE ONE Administration Prochlorperazine Maleate 10 mg 10/14/23 21:15 10/14/23 21:48 Prochlorperazine Maleate 5 Mg Tablet PO 10/14/23 21:16 10 mg ONCE ONE Administration Medical Decision Making Lab Data 10/14/23 18:41 10/14/23 18:41 Labs: Lab Results 10/14/23 Range/Units 18:41 WBC 5.9 (4.8-10.8) X10*3/uL RBC 5.10 (4.20-5.50) X10*6/uL Hgb 15.0 (12.0-16.0) g/dl Hct 43.2 (37.0-47.0) % MCV 84.7 (80.0-98.0) fL MCH 29.4 (27.0-33.0) pg MCHC 34.7 (31.0-35.0) g/dl RDW 14.3 (11.0-16.0) % Plt Count 216 (160-400) X10*3/uL MPV 11.4 (9.4-12.3) fL Immature Gran % (Auto) 0.3 (0.0-0.4) % Neut % (Auto) 82.0 H (45-73) % Lymph % (Auto) 12.9 L (20-40) % Burke % (Auto) 4.6 (2-11) % Eos % (Auto) 0.0 (0-4) % Baso % (Auto) 0.2 (0-2) % Lymph # (Auto) 0.8 L (1.2-4.9) X10*3/uL Burke # (Auto) 0.3 (0.1-1.2) X10*3/uL Eos # (Auto) 0.0 (0.0-0.4) X10*3/uL Baso # (Auto) 0.0 (0.0-0.2) X10*3/uL Abs Immat Gran (auto) 0.02 (0.00-0.03) X10*3/uL Absolute Neuts (auto) 4.8 (2.0-8.3) x10*3/uL Absolute Nucleated RBC 0.000 (0.0-0.012) X10*3/uL Nucleated RBC % (auto) 0.0 (0.0-0.2) /100WBC Sodium 140 (135-145) mmol/L Potassium 3.4 (3.3-5.1) mmol/L Chloride 103 (96-108) mmol/L Carbon Dioxide 21 L (22-29) mmol/L Anion Gap 19 (12-20) BUN 5 L (9-16) mg/dL Creatinine 0.84 (0.5-1.4) mg/dL Estim Creat Clear Calc 96.6 Estimated GFR > 60 Random Glucose 135 H (60-115) mg/dL Calcium 10.1 (8.4-10.2) mg/dL Total Bilirubin 2.3 H (0.0-1.0) mg/dL AST 31 (5-31) U/L ALT 44 H (0-31) U/L Alkaline Phosphatase 79 (39-117) U/L Troponin I High Sens 13.1 D (<3.5-17.0) ng/L Total Protein 7.4 (6.5-8.0) g/dL Albumin 4.6 (3.5-5.0) g/dL Beta HCG, Quant < 2 mIU/mL Influenza Type A (PCR) NEGATIVE (Negative) Influenza Type B (PCR) NEGATIVE (Negative) RSV RNA Qual (PCR) NEGATIVE (Negative) SARS-CoV-2 RNA (RT-PCR) NEGATIVE (Negative) Discharge Plan Discharge Clinical Impression: Nausea vomiting and diarrhea, Medication side effect Patient Disposition: Home, Self-Care Instructions: Acute Nausea and Vomiting (ED) Additional Instructions: Please follow-up with your primary care physician tomorrow. If you have any worsening or new symptoms, please return to the emergency room or call 911 Prescriptions: New ondansetron 4 mg tablet,disintegrating 4 mg PO Q6H PRN (Reason: nausea and vomiting) Qty: 14 0RF No Action albuterol sulfate [Ventolin HFA] 90 mcg/actuation HFA aerosol inhaler 2 puff inhalation Q4-6H PRN (Reason: Wheezing) Actemra ACTPen 162 mg/0.9 mL pen injector 162 mg subcut Q2W duloxetine 30 mg capsule,delayed release(DR/EC) See Rx Instructions PO .COMPLEX Qty: 60 2RF Rx Instructions: Take 1 tab nightly for 1 week then 2 tabs nightly pantoprazole 40 mg tablet,delayed release (DR/EC) 40 mg PO DAILY Qty: 90 0RF sucralfate 100 mg/mL suspension 10 ml PO BID Qty: 600 2RF Interventions: ED Discharge Assessment Last Done: 10/14/23 21:48 Discharge Date/Time: 10/14/23 21:51 Print Language: Vietnamese
[2023-10-14] MEDS: Ondansetron ODT 4 MG TAB.RAPDIS TRANSLINGU (18:37)
[2023-10-14 18:46] LABS: MANUAL DIFF FLAG NO
[2023-10-14 18:48] LABS: Basophils Percent Auto 0.2 % (0-2); Hematocrit 43.2 % (37.0-47.0); Imm Gran Abs Auto 0.02 X10*3/uL (0.00-0.03); Imm Gran Pct Auto 0.3 % (0.0-0.4); Lymphocytes Absolute Auto 0.8 X10*3/uL (1.2-4.9); Lymphocytes Percent Auto 12.9 % (20-40); Mean Corpuscular HGB Conc 34.7 g/dl (31.0-35.0); Mean Corpuscular Hemoglobin 29.4 pg (27.0-33.0); Mean Corpuscular Volume 84.7 fL (80.0-98.0); Mean Platelet Volume 11.4 fL (9.4-12.3); Monocytes Absolute Auto 0.3 X10*3/uL (0.1-1.2); Monocytes Percent Auto 4.6 % (2-11); Neutrophils Absolute Auto 4.8 x10*3/uL (2.0-8.3); Platelet Count 216 X10*3/uL (160-400); Red Cell Distribution Width 14.3 % (11.0-16.0); White Blood Count 5.9 X10*3/uL (4.8-10.8)
[2023-10-14 19:11] LABS: Troponin-I High Sensitivity 13.1 ng/L (<3.5-17.0)
[2023-10-14 19:15] LABS: Alanine Aminotransferase 44 U/L (0-31); Albumin Level 4.6 g/dL (3.5-5.0); Alkaline Phosphatase 79 U/L (39-117); Anion Gap 19 (12-20); Aspartate Amino Transferase 31 U/L (5-31); Bilirubin Total 2.3 mg/dL (0.0-1.0); Blood Urea Nitrogen 5 mg/dL (9-16); Calcium 10.1 mg/dL (8.4-10.2); Carbon Dioxide 21 mmol/L (22-29); Chloride 103 mmol/L (96-108); Creatinine Clr Calc Pharmacy 96.6; Estimated Glomerular Filt Rate > 60; Glucose Random 135 mg/dL (60-115); HCG Quantitative < 2 mIU/mL; Potassium 3.4 mmol/L (3.3-5.1); Sodium 140 mmol/L (135-145); Total Protein 7.4 g/dL (6.5-8.0)
[2023-10-14 19:33] LABS: Influenza A PCR NEGATIVE (Negative); Influenza B PCR NEGATIVE (Negative); Resp Syncy Virus RNA Qual PCR NEGATIVE (Negative); SARS COV2 PCR INHOUSE NEGATIVE (Negative)
--- NOTE | 2023-10-14 21:14 | ED_ITS ---
HPI - Nausea/Vomiting/Diarrhea General Chief complaint: Nausea/Vomiting/Diarrhea Stated complaint: N/V/D, PT THINKS ITS A REACTION TO NEW MEDS Time Seen by Provider: 10/14/23 21:04 Source: patient Mode of arrival: ambulatory Limitations: no limitations History of Present Illness ED Provider: Dr. Renate Maddox HPI Narrative: Patient comes to the emergency room complaining of a few hours of nausea and vomiting, generalized malaise. Patient states that yesterday night she took duloxetine for the 1st time, this morning, patient woke up with nausea and generalized malaise. Patient denies fever, no URI symptoms, no UTI symptoms, no abdominal pain, only nausea, vomiting and diarrhea Related Data Home Medications ?Medication ?Instructions ?Recorded ?Confirmed albuterol sulfate 90 mcg/actuation 2 puff inhalation Q4-6H PRN 12/23/22 09/03/23 aerosol inhaler (Ventolin HFA) Wheezing tocilizumab 162 mg/0.9 mL 162 mg subcut Q2W 10/08/23 10/08/23 subcutaneous pen injector (Actemra ACTPen) Previous Rx's ?Medication ?Instructions ?Recorded pantoprazole 40 mg tablet,delayed 40 mg PO DAILY #90 tabs 07/16/23 release sucralfate 100 mg/mL oral 10 ml PO BID #600 mL 07/16/23 suspension duloxetine 30 mg capsule,delayed See Rx Instructions PO .COMPLEX 10/08/23 release #60 caps ondansetron 4 mg disintegrating 4 mg PO Q6H PRN nausea and 10/14/23 tablet vomiting #14 tabs Allergies Allergy/AdvReac Type Severity Reaction Status Date / Time No Known Allergies Allergy Verified 10/14/23 18:34 Review of Systems 2 Review of Systems: Constitutional : No Weight loss, No Fever, No Chills, No Night Sweats, No Fatigue, No Malaise ENT/Mouth : No Hearing loss, No Ear Pain, No Nasal Congestion, No Sinus Pain, No Hoarseness, No sore throat, No Rhinorrhea, No Swallowing Difficulty Eyes: No Eye Pain, No Swelling, No Redness, No Foreign Body, No Discharge, No Vision Changes Cardiovascular : No Chest Pain, No SOB, No Dyspnea on Exertion, No Orthopnea, No Edema, No Palpitations Respiratory : No Cough, No Sputum, No Wheezing, No Smoke Exposure, No Dyspnea Gastrointestinal : Complaining of nausea vomiting and diarrhea, No Constipation, No abdominal Pain, No Hematochezia, No Melena Genitourinary : no irregular bleeding, No Dysuria, No Urinary Frequency, No Hematuria, No Urinary Incontinence, No Urgency, No Flank Pain, No Urinary Flow Changes, No Hesitancy Musculoskeletal : No joint pain, No Myalgias, No Joint Swelling Skin : No Skin Lesions, No rash Neuro : No Weakness, No Numbness, No Paresthesias, No Loss of Consciousness, No Dizziness, No Headache Psych : No Anxiety/Panic, No Depression, No SI/HI/AH/VH, No Social Issues, Heme/Lymph: No Bruising, No Bleeding,No Lymphadenopathy Endocrine : No Polyuria, No Polydipsia, No Temperature Intolerance PMFSH Past Medical History Medical History GI bleed Arthritis GERD (gastroesophageal reflux disease) Depression Anxiety HTN (hypertension) Syncope Anti-cardiolipin antibody positive Rash and other nonspecific skin eruption Hiatal hernia Pulmonary nodules Chest pain Early stage of Obesity, morbid, BMI 40.0-49.9 Missed menses COVID-19 Asthma Rheumatoid arthritis Abnormal laboratory test Numbness in both hands Polyarthritis Myofascial pain syndrome Surgical History S/P laparoscopic sleeve gastrectomy Hx of elbow surgery H/O colonoscopy Hx of cholecystectomy H/O breast biopsy Hx of section Family History Family History Maternal Grandmother Diabetes Father HTN (hypertension) Mother HTN (hypertension) Maternal Aunt Colon cancer Social History Social History Household Members: Family Housing: House Are you a primary career consultant to a significant other at home: No Do you presently have visiting nurse or other home services: No Alcohol intake: never Patient Tobacco Use Status: Former Tobacco user Tobacco use type: Cigarette Do you have a plan to hurt others: No Plan service: No Gender identity: Female Physical Exam 2 Vital Signs: Vital Signs: Last Vital Signs Temp 96.8 F 10/14/23 18:30 Pulse 71 10/14/23 18:30 Resp 17 10/14/23 18:30 BP 140/91 H 10/14/23 18:30 Pulse Ox 97 10/14/23 18:30 O2 Del Method Room Air 10/14/23 18:30 BMI result Body Mass Index 32.7 Const: Other: Appearance: Alert. Oriented X3. No acute distress. Eyes: Pupils equal, round and reactive to light. ENT: Pharynx normal. Neck: Normal inspection. Neck supple. No lymph nodes noted. No crepitus CVS: Normal heart rate and rhythm. Pulses normal. Normal S1 and S2 Respiratory: No respiratory distress. Breath sounds normal. No Wheezing. No rales Abdomen: Soft and nontender. No rigidity. No distention. Skin: Skin warm and dry. Normal skin color. Normal skin turgor. Extremities: No lower extremity edema. No Lacerations. No Rash Neuro: Oriented X 3. No motor deficit. No sensory deficit. Moving all extremities. No slurred speech. CN 2 through 12 grossly intact Psych: calm, cooperative, normal affect Medications Administered Discontinued Medications Generic Name Dose Route Start Last Admin Trade Name Charity PRN Reason Stop Dose Admin Ondansetron HCl 4 mg 10/14/23 18:35 10/14/23 18:37 Ondansetron Odt 4 Mg Tab.Rapdis TRANSLINGU 10/14/23 18:36 4 mg ONCE ONE Administration Medical Decision Making Medical Decision Making [facility] Narrative: -my interpretation of labs: Normal hematology, at baseline chemistry, hCG negative, chronically elevated LFTs -patient's physical exam reassuring, patient did not have any pain at all on deep palpation all 4 quadrants, no rebound or guarding either. -patient declined the urinalysis test. -patient was given Zofran and Compazine at home, requesting to be discharged home. -per nursing, patient has not had any episodes of vomiting or diarrhea or dry heaving while she has been here in the emergency room -I discussed with the patient to contact her provider who prescribed duloxetine, as this may be a side effect of the medication. In the meantime, patient has had only 1 dose, okay to stop today and reason the medication after discussing her side effects with her psychiatrist Differential Diagnosis Differential Diagnoses: The differential diagnosis associated with the presentation includes (Gastritis, gastroenteritis, medication side-effect) Lab Data [facility] Lab Attestation statement: I reviewed the patient's lab results. 10/14/23 18:41 10/14/23 18:41 Labs: Lab Results 10/14/23 Range/Units 18:41 WBC 5.9 (4.8-10.8) X10*3/uL RBC 5.10 (4.20-5.50) X10*6/uL Hgb 15.0 (12.0-16.0) g/dl Hct 43.2 (37.0-47.0) % MCV 84.7 (80.0-98.0) fL MCH 29.4 (27.0-33.0) pg MCHC 34.7 (31.0-35.0) g/dl RDW 14.3 (11.0-16.0) % Plt Count 216 (160-400) X10*3/uL MPV 11.4 (9.4-12.3) fL Immature Gran % (Auto) 0.3 (0.0-0.4) % Neut % (Auto) 82.0 H (45-73) % Lymph % (Auto) 12.9 L (20-40) % [place] % (Auto) 4.6 (2-11) % Eos % (Auto) 0.0 (0-4) % Baso % (Auto) 0.2 (0-2) % Lymph # (Auto) 0.8 L (1.2-4.9) X10*3/uL [place] # (Auto) 0.3 (0.1-1.2) X10*3/uL Eos # (Auto) 0.0 (0.0-0.4) X10*3/uL Baso # (Auto) 0.0 (0.0-0.2) X10*3/uL Abs Immat Gran (auto) 0.02 (0.00-0.03) X10*3/uL Absolute Neuts (auto) 4.8 (2.0-8.3) x10*3/uL Absolute Nucleated RBC 0.000 (0.0-0.012) X10*3/uL Nucleated RBC % (auto) 0.0 (0.0-0.2) /100WBC Sodium 140 (135-145) mmol/L Potassium 3.4 (3.3-5.1) mmol/L Chloride 103 (96-108) mmol/L Carbon Dioxide 21 L (22-29) mmol/L Anion Gap 19 (12-20) BUN 5 L (9-16) mg/dL Creatinine 0.84 (0.5-1.4) mg/dL Estim Creat Clear Calc 96.6 Estimated GFR > 60 Random Glucose 135 H (60-115) mg/dL Calcium 10.1 (8.4-10.2) mg/dL Total Bilirubin 2.3 H (0.0-1.0) mg/dL AST 31 (5-31) U/L ALT 44 H (0-31) U/L Alkaline Phosphatase 79 (39-117) U/L Troponin I High Sens 13.1 D (<3.5-17.0) ng/L Total Protein 7.4 (6.5-8.0) g/dL Albumin 4.6 (3.5-5.0) g/dL Beta HCG, Quant < 2 mIU/mL Influenza Type A (PCR) NEGATIVE (Negative) Influenza Type B (PCR) NEGATIVE (Negative) RSV RNA Qual (PCR) NEGATIVE (Negative) SARS-CoV-2 RNA (RT-PCR) NEGATIVE (Negative) Discharge Plan Discharge Clinical Impression: Nausea vomiting and diarrhea, Medication side effect Patient Disposition: Home, Self-Care Instructions: Acute Nausea and Vomiting (ED) Additional Instructions: Please follow-up with your primary care physician tomorrow. If you have any worsening or new symptoms, please return to the emergency room or call 911 Prescriptions: New ondansetron 4 mg tablet,disintegrating 4 mg PO Q6H PRN (Reason: nausea and vomiting) Qty: 14 0RF No Action albuterol sulfate [Ventolin HFA] 90 mcg/actuation HFA aerosol inhaler 2 puff inhalation Q4-6H PRN (Reason: Wheezing) Actemra ACTPen 162 mg/0.9 mL pen injector 162 mg subcut Q2W duloxetine 30 mg capsule,delayed release(DR/EC) See Rx Instructions PO .COMPLEX Qty: 60 2RF Rx Instructions: Take 1 tab nightly for 1 week then 2 tabs nightly pantoprazole 40 mg tablet,delayed release (DR/EC) 40 mg PO DAILY Qty: 90 0RF sucralfate 100 mg/mL suspension 10 ml PO BID Qty: 600 2RF Print Language: Luxembourgish
[2023-10-14 21:48] VITALS: BP 146/94; PULSE 55; RESP 22; TEMP 36.9; O2SAT 97
[2023-10-14] MEDS: Prochlorperazine Maleate 5 MG TABLET 10 MG PO (21:48)
== END 2023-10-14 21:51 | disposition home or self-care (01) ==
PROVIDERS: Registered Nurse Emergency; Emergency Provider Emergency Medicine; PCP Pediatrics
DX: R11.2 Nausea with vomiting, unspecified (principal); R42 Dizziness and giddiness; T50.905A Adverse effect of unspecified drugs, medicaments and biological substances, initial encounter; Y92.9 Unspecified place or not applicable; R19.7 Diarrhea, unspecified; R51.9 Headache, unspecified; I10 Essential (primary) hypertension; Z03.818 Encounter for observation for suspected exposure to other biological agents ruled out
CPT/HCPCS: 0241U; 80053; 84484; 84702; 85025; 93005; 99283

== ENCOUNTER → 2023-10-14 18:01 | Outpatient (BNV) | payer MEDICAID, SELFPAY | PROVIDERS: Emergency Provider Emergency Medicine; PCP Pediatrics; Visit Provider Internal Medicine | DX: I49.3 Ventricular premature depolarization (principal) | CPT/HCPCS: 93010 ==

== ENCOUNTER 2023-10-27 11:15 | Emergency (ER) | payer MEDICAID, SELFPAY ==
[2023-10-27 11:24] VITALS: BP 121/70; PULSE 58; RESP 16; TEMP 36.7; O2SAT 98; BMI 33.7
--- NOTE | 2023-10-27 11:34 | ED_ITS ---
HPI - General Adult General Chief complaint: Nausea/Vomiting/Diarrhea Stated complaint: vomitng pain all over Time Seen by Provider: 10/27/23 15:00 Source: patient Mode of arrival: ambulatory Limitations: no limitations History of Present Illness HPI narrative: 28 year old female PMH: Past Medical History Medical History GI bleed Arthritis GERD (gastroesophageal reflux disease) Depression Anxiety HTN (hypertension) Syncope Anti-cardiolipin antibody positive Rash and other nonspecific skin eruption Hiatal hernia Pulmonary nodules Chest pain Early stage of Obesity, morbid, BMI 40.0-49.9 Missed menses COVID-19 Asthma Rheumatoid arthritis Abnormal laboratory test Numbness in both hands Polyarthritis Myofascial pain syndrome Surgical History S/P laparoscopic sleeve gastrectomy Hx of elbow surgery H/O colonoscopy Hx of cholecystectomy H/O breast biopsy Hx of section She presents to the ER today complaining of nausea, vomiting and diarrhea for 2 weeks. She has some associated bruising headache and chills. Pain around umbilicus she also states she had sleeve gastrectomy here two months ago with Dr. Wells but it our notes show she had daphramatic hernia and sleeve gastrectomy. Since having the surgery patient has been placed on duloxetine for her fibromyalgia pain. She denies cough or fever. Patient denies any history of fevers she denies any falls or injuries she states she and tired Related Data Home Medications ?Medication ?Instructions ?Recorded ?Confirmed albuterol sulfate 90 mcg/actuation 2 puff inhalation Q4-6H PRN 12/23/22 09/03/23 aerosol inhaler (Ventolin HFA) Wheezing tocilizumab 162 mg/0.9 mL 162 mg subcut Q2W 10/08/23 10/08/23 subcutaneous pen injector (Actemra ACTPen) Previous Rx's ?Medication ?Instructions ?Recorded pantoprazole 40 mg tablet,delayed 40 mg PO DAILY #90 tabs 07/16/23 release sucralfate 100 mg/mL oral 10 ml PO BID #600 mL 07/16/23 suspension duloxetine 30 mg capsule,delayed See Rx Instructions PO .COMPLEX 10/08/23 release #60 caps ondansetron 4 mg disintegrating 4 mg PO Q6H PRN nausea and 10/14/23 tablet vomiting #14 tabs Allergies Allergy/AdvReac Type Severity Reaction Status Date / Time No Known Allergies Allergy Verified 10/27/23 11:25 Review of Systems 2 Review of Systems: Review of systems: General: Patient denies any fever chills recent illness or falls Musculoskeletal: Denies back pain or body aches or other injuries HEENT: denies headache, runny nose, ear pain Respiratory: denies shortness of breath, cough Cardiovascular: no chest pain or palpitations : denies dysuria, frequency Abdomen: no nausea vomiting denies abdominal pain Extremities: no swelling, no pain Skin: no diaphoresis Yes all other systems are reviewed and are negative [facility] Past Medical History Medical History GI bleed Arthritis GERD (gastroesophageal reflux disease) Depression Anxiety HTN (hypertension) Syncope Anti-cardiolipin antibody positive Rash and other nonspecific skin eruption Hiatal hernia Pulmonary nodules Chest pain Early stage of Obesity, morbid, BMI 40.0-49.9 Missed menses COVID-19 Asthma Rheumatoid arthritis Abnormal laboratory test Numbness in both hands Polyarthritis Myofascial pain syndrome Surgical History S/P laparoscopic sleeve gastrectomy Hx of elbow surgery H/O colonoscopy Hx of cholecystectomy H/O breast biopsy Hx of section Family History Family History Maternal Grandmother Diabetes Father HTN (hypertension) Mother HTN (hypertension) Maternal Aunt Colon cancer Social History Social History Household Members: Family Housing: House Are you a primary lead care manager to a significant other at home: No Do you presently have visiting nurse or other home services: No Alcohol intake: never Patient Tobacco Use Status: Former Tobacco user Tobacco use type: Cigarette Advance Directives: No Advance Directives Information Provided: Yes service: No Gender identity: Female Physical Exam ED Vital Signs: Vital Signs - 24 hr 10/27/23 11:24 10/27/23 15:05 10/27/23 16:03 Temperature 98.0 F 98.2 F 98.6 F Pulse Rate 58 65 53 Respiratory Rate 16 18 14 Blood Pressure 121/70 115/66 104/50 L Pulse Oximetry 98 99 99 Oxygen Delivery Method Room Air Room Air Room Air BMI result Body Mass Index 33.7 Neurological exam: CN II- XII tested. Patient is alert and oriented to person place and time. Patient has no dysphagia or dysarthia, denies good vision in all four vision jacobs no nystagmus on exam, good strength to upper and lower extremities with normal reflexes to brachioradialis, wrist, patella and achilles. Negative romberg, good finger to nose and heel to [place]. General: Well-appearing well-nourished in no signs of distress HEENT: Normocephalic atraumatic Neck: No signs of JVD, no masses no tenderness or lymphadenopathy Cardiovascular: Regular rate and rhythm Respiratory: Clear to auscultation bilaterally Abdomen: Soft nontender no masses Extremities: Normal pedal pulses no signs of edema Skin: Dry warm no rashes Back: No tenderness full ROM Course Course Course Narrative: RME performed by Dominga Roca PA-C. Patient is a 28 year old assigned female at presenting to the emergency department with 2 weeks of chills and feeling generally unwell. Patient is a recent bariatric surgery patient. Detailed physical exam and review of systems are deferred to the meter tester primary. Labs ordered. Patient placed back in the waiting room pending room availability and results. Reevaluation(s) Reevaluation #1: [id number] after being medication patient is sleeping comfortably in the room feeling much better I will discharge the patient home at this time Medications Administered Discontinued Medications Generic Name Dose Route Start Last Admin Trade Name Charity PRN Reason Stop Dose Admin Dexamethasone Sodium Phosphate 10 mg 10/27/23 15:08 10/27/23 15:35 Dexamethasone Sod Phosphate 10 Mg/Ml Vial IVPUSH 10/27/23 15:09 10 mg ONCE ONE Administration Diphenhydramine HCl 25 mg 10/27/23 15:08 10/27/23 15:35 Diphenhydramine Hcl 50 Mg/Ml Vial IVPUSH 10/27/23 15:09 25 mg ONCE ONE Administration Haloperidol Lactate 5 mg 10/27/23 15:08 10/27/23 15:35 Haloperidol Lactate 5 Mg/Ml Vial IVPUSH 10/27/23 15:09 5 mg STAT STA Administration Sodium Chloride 1,000 mls @ 999 mls/hr 10/27/23 15:15 10/27/23 15:35 Ns IV 10/27/23 16:15 999 mls/hr .Q1H1M MODE Administration Magnesium Sulfate/Dextrose 1 gm in 100 mls @ 300 mls/hr 10/27/23 15:08 10/27/23 15:35 Magnesium Sulfate/D5w IV 10/27/23 15:27 300 mls/hr ONCE ONE Administration Medical Decision Making Medical Decision Making [facility] Narrative: Patient has completely benign abdominal exam I do not think this is related to her previous surgery with nausea vomiting and diarrhea and just few episodes a day I will treat with a migraine cocktail check labs and reassess Differential Diagnosis Differential Diagnoses: The differential diagnosis associated with the presentation includes See dehydration headache acute surgical issue dehydration electrolyte abnormality Lab Data 10/27/23 12:00 10/27/23 12:00 Labs: Lab Results 10/27/23 Range/Units 12:00 WBC 8.0 (4.8-10.8) X10*3/uL RBC 4.76 (4.20-5.50) X10*6/uL Hgb 14.1 (12.0-16.0) g/dl Hct 40.3 (37.0-47.0) % MCV 84.7 (80.0-98.0) fL MCH 29.6 (27.0-33.0) pg MCHC 35.0 (31.0-35.0) g/dl RDW 14.2 (11.0-16.0) % Plt Count 217 (160-400) X10*3/uL MPV 10.8 (9.4-12.3) fL Immature Gran % (Auto) 0.6 H (0.0-0.4) % Neut % (Auto) 73.8 H (45-73) % Lymph % (Auto) 17.3 L (20-40) % [place] % (Auto) 7.9 (2-11) % Eos % (Auto) 0.1 (0-4) % Baso % (Auto) 0.3 (0-2) % Lymph # (Auto) 1.4 (1.2-4.9) X10*3/uL [place] # (Auto) 0.6 (0.1-1.2) X10*3/uL Eos # (Auto) 0.0 (0.0-0.4) X10*3/uL Baso # (Auto) 0.0 (0.0-0.2) X10*3/uL Abs Immat Gran (auto) 0.05 H (0.00-0.03) X10*3/uL Absolute Neuts (auto) 5.9 (2.0-8.3) x10*3/uL Absolute Nucleated RBC 0.000 (0.0-0.012) X10*3/uL Nucleated RBC % (auto) 0.0 (0.0-0.2) /100WBC Sodium 137 (135-145) mmol/L Potassium 3.3 (3.3-5.1) mmol/L Chloride 99 (96-108) mmol/L Carbon Dioxide 24 (22-29) mmol/L Anion Gap 17 (12-20) BUN 5 L (9-16) mg/dL Creatinine 0.70 (0.5-1.4) mg/dL Estim Creat Clear Calc 113.1 Estimated GFR > 60 Random Glucose 82 (60-115) mg/dL Calcium 9.5 (8.4-10.2) mg/dL Magnesium 2.2 (1.6-2.6) mg/dL Total Bilirubin 2.0 H (0.0-1.0) mg/dL AST 20 (5-31) U/L ALT 27 (0-31) U/L Alkaline Phosphatase 78 (39-117) U/L Total Protein 7.0 (6.5-8.0) g/dL Albumin 4.3 (3.5-5.0) g/dL Influenza Type A (PCR) NEGATIVE (Negative) Influenza Type B (PCR) NEGATIVE (Negative) RSV RNA Qual (PCR) NEGATIVE (Negative) SARS-CoV-2 RNA (RT-PCR) NEGATIVE (Negative) Discharge Plan Discharge Clinical Impression: Headache, Vomiting Patient Disposition: Home, Self-Care Instructions: Acute Headache (DC), Acute Nausea and Vomiting (ED) Additional Instructions: You were seen today for vomiting and headache. This could be related to you have surgery and a smaller stomach. You need to eat much smaller portions. You had labs done which were all normal. You were given medications and your symptoms improved. If you have any other concerns pelas return to the ER. Prescriptions: No Action ondansetron 4 mg tablet,disintegrating 4 mg PO Q6H PRN (Reason: nausea and vomiting) Qty: 14 0RF albuterol sulfate [Ventolin HFA] 90 mcg/actuation HFA aerosol inhaler 2 puff inhalation Q4-6H PRN (Reason: Wheezing) Actemra ACTPen 162 mg/0.9 mL pen injector 162 mg subcut Q2W duloxetine 30 mg capsule,delayed release(DR/EC) See Rx Instructions PO .COMPLEX Qty: 60 2RF Rx Instructions: Take 1 tab nightly for 1 week then 2 tabs nightly pantoprazole 40 mg tablet,delayed release (DR/EC) 40 mg PO DAILY Qty: 90 0RF sucralfate 100 mg/mL suspension 10 ml PO BID Qty: 600 2RF Print Language: Korean
[2023-10-27 12:07] LABS: MANUAL DIFF FLAG NO
[2023-10-27 12:10] LABS: Basophils Percent Auto 0.3 % (0-2); Eosinophils Percent Auto 0.1 % (0-4); Hematocrit 40.3 % (37.0-47.0); Hemoglobin 14.1 g/dl (12.0-16.0); Imm Gran Abs Auto 0.05 X10*3/uL (0.00-0.03); Imm Gran Pct Auto 0.6 % (0.0-0.4); Lymphocytes Absolute Auto 1.4 X10*3/uL (1.2-4.9); Lymphocytes Percent Auto 17.3 % (20-40); Mean Corpuscular Hemoglobin 29.6 pg (27.0-33.0); Mean Corpuscular Volume 84.7 fL (80.0-98.0); Mean Platelet Volume 10.8 fL (9.4-12.3); Monocytes Absolute Auto 0.6 X10*3/uL (0.1-1.2); Monocytes Percent Auto 7.9 % (2-11); Neutrophils Absolute Auto 5.9 x10*3/uL (2.0-8.3); Neutrophils Percent Auto 73.8 % (45-73); Platelet Count 217 X10*3/uL (160-400); Red Blood Count 4.76 X10*6/uL (4.20-5.50); Red Cell Distribution Width 14.2 % (11.0-16.0)
[2023-10-27 12:29] LABS: Alanine Aminotransferase 27 U/L (0-31); Albumin Level 4.3 g/dL (3.5-5.0); Alkaline Phosphatase 78 U/L (39-117); Anion Gap 17 (12-20); Aspartate Amino Transferase 20 U/L (5-31); Blood Urea Nitrogen 5 mg/dL (9-16); Calcium 9.5 mg/dL (8.4-10.2); Carbon Dioxide 24 mmol/L (22-29); Chloride 99 mmol/L (96-108); Creatinine Clr Calc Pharmacy 113.1; Estimated Glomerular Filt Rate > 60; Glucose Random 82 mg/dL (60-115); Magnesium 2.2 mg/dL (1.6-2.6); Potassium 3.3 mmol/L (3.3-5.1); Sodium 137 mmol/L (135-145)
[2023-10-27 12:56] LABS: Influenza A PCR NEGATIVE (Negative); Influenza B PCR NEGATIVE (Negative); Resp Syncy Virus RNA Qual PCR NEGATIVE (Negative); SARS COV2 PCR INHOUSE NEGATIVE (Negative)
[2023-10-27 15:05] VITALS: BP 115/66; PULSE 65; RESP 18; TEMP 36.8; O2SAT 99
[2023-10-27] MEDS: 0.9 % Sodium Chloride 1,000 ML 999 ML IV (15:35)
[2023-10-27] MEDS: Magnesium Sulfate/D5W 1 GM/100 ML PIGGYBACK IV (15:35)
[2023-10-27] MEDS: Haloperidol Lactate 5 MG/ML VIAL IVPUSH (15:35)
[2023-10-27] MEDS: diphenhydrAMINE HCL 50 MG/ML VIAL 25 MG IVPUSH (15:35)
[2023-10-27] MEDS: dexAMETHasone sod phosphate 10 MG/ML VIAL IVPUSH (15:35)
--- NOTE | 2023-10-27 15:38 | PC.NURSE ---
Pt. on cardiac technician at this time d/t receiving Haldol and Magnesium.
[2023-10-27 16:03] VITALS: BP 104/50; PULSE 53; RESP 14; TEMP 37; O2SAT 99
[2023-10-27 17:41] VITALS: BP 124/73; PULSE 60; RESP 18; O2SAT 98
[2023-10-27 17:56] VITALS: BP 124/73; PULSE 60; RESP 18; TEMP 37; O2SAT 98
== END 2023-10-27 17:56 | disposition home or self-care (01) ==
PROVIDERS: Physician Assistant Medical; Emergency Provider Student in an Organized Health Care Education/Training Program; PCP Internal Medicine
DX: R11.2 Nausea with vomiting, unspecified (principal); R51.9 Headache, unspecified; Z79.899 Other long term (current) drug therapy; Z03.818 Encounter for observation for suspected exposure to other biological agents ruled out; Z87.891 Personal history of nicotine dependence
CPT/HCPCS: 0241U; 80053; 83735; 85025; 96361; 96374; 96375; 99284; J1100; J1200; J1630; J3475

== ENCOUNTER 2024-01-29 10:34 | Outpatient (REF) | payer MEDICAID, SELFPAY ==
[2024-01-29 11:08] LABS: MANUAL DIFF FLAG NO
[2024-01-29 11:22] LABS: Basophils Absolute Auto 0.1 X10*3/uL (0.0-0.2); Basophils Percent Auto 0.8 % (0-2); Eosinophils Absolute Auto 0.2 X10*3/uL (0.0-0.4); Eosinophils Percent Auto 1.9 % (0-4); Hematocrit 40.8 % (37.0-47.0); Hemoglobin 13.7 g/dl (12.0-16.0); Imm Gran Abs Auto 0.02 X10*3/uL (0.00-0.03); Imm Gran Pct Auto 0.3 % (0.0-0.4); Lymphocytes Absolute Auto 2.6 X10*3/uL (1.2-4.9); Lymphocytes Percent Auto 32.8 % (20-40); Mean Corpuscular HGB Conc 33.6 g/dl (31.0-35.0); Mean Corpuscular Volume 95.3 fL (80.0-98.0); Monocytes Absolute Auto 0.7 X10*3/uL (0.1-1.2); Monocytes Percent Auto 8.3 % (2-11); Neutrophils Absolute Auto 4.4 x10*3/uL (2.0-8.3); Neutrophils Percent Auto 55.9 % (45-73); Platelet Count 282 X10*3/uL (160-400); Red Blood Count 4.28 X10*6/uL (4.20-5.50); White Blood Count 7.8 X10*3/uL (4.8-10.8)
[2024-01-29 11:30] LABS: Estimated Average Glucose 85 mg/dL; Hemoglobin A1C 90.8453 umol/L; Hemoglobin A1c % 4.6 % (<6.0); Total Hemoglobin (HGBA1C) 3405.0883 umol/L
[2024-01-29 12:00] LABS: Alanine Aminotransferase 29 U/L (0-31); Albumin Level 4.1 g/dL (3.5-5.0); Alkaline Phosphatase 67 U/L (39-117); Anion Gap 10 (12-20); Aspartate Amino Transferase 30 U/L (5-31); Bilirubin Total 1.8 mg/dL (0.0-1.0); Blood Urea Nitrogen 6 mg/dL (9-16); Carbon Dioxide 25 mmol/L (22-29); Chloride 108 mmol/L (96-108); Estimated Glomerular Filt Rate > 60; Glucose Random 83 mg/dL (60-115); Potassium 3.4 mmol/L (3.3-5.1); Sodium 140 mmol/L (135-145); Total Protein 6.6 g/dL (6.5-8.0)
[2024-01-29 12:17] LABS: TSH reflex Free T4 0.78 uIU/mL (0.32-4.0); Vitamin D 25-OH Total 42.2 ng/mL (>30)
[2024-01-29 12:26] LABS: Folate 11.2 ng/mL (> or = 4.0); Vitamin B12 775 pg/mL (200-900)
[2024-01-29 13:50] LABS: Appearance Urine Turbid; Color Urine Yellow; Glucose Urine UA Negative (Negative); Leukocyte Esterase Urine Negative (Negative); Nitrite Urine Negative (Negative); PH 5.5 (5.0-9.0); Specific Gravity - Urine >= 1.030 (1.005-1.025); Urine Blood Negative (Negative); Urine Ketones Trace mg/dL (Negative); Urine Protein Trace mg/dL (Neg-Trace)
[2024-02-02 13:39] LABS: RPR Rapid Plasma Reagin NON-REACTIVE (NON-REACTIVE)
[2024-02-04 06:24] LABS: Vitamin B6 57.2 ng/mL (2.1-21.7)
[2024-02-04 15:29] LABS: Vitamin B1 36 nmol/L (8-30)
== END 2024-01-29 10:35 | disposition home or self-care (01) ==
LOC: HO.CHCLDS 10:34
PROVIDERS: Visit Provider Internal Medicine
DX: R10.2 Pelvic and perineal pain (principal); E51.2 Wernicke's encephalopathy
CPT/HCPCS: 36415; 80053; 81003; 82306; 82607; 82746; 83036; 84207; 84425; 84443; 85025; 86592

== ENCOUNTER 2024-03-08 09:27 | Outpatient (REF) | payer MEDICAID, SELFPAY ==
[2024-03-08 11:15] LABS: MANUAL DIFF FLAG NO
[2024-03-08 11:38] LABS: Basophils Absolute Auto 0.1 X10*3/uL (0.0-0.2); Basophils Percent Auto 0.9 % (0-2); Eosinophils Absolute Auto 0.2 X10*3/uL (0.0-0.4); Hematocrit 45.6 % (37.0-47.0); Hemoglobin 16.1 g/dl (12.0-16.0); Imm Gran Abs Auto 0.02 X10*3/uL (0.00-0.03); Imm Gran Pct Auto 0.3 % (0.0-0.4); Lymphocytes Percent Auto 50.6 % (20-40); Mean Corpuscular HGB Conc 35.3 g/dl (31.0-35.0); Mean Corpuscular Hemoglobin 30.6 pg (27.0-33.0); Mean Corpuscular Volume 86.7 fL (80.0-98.0); Mean Platelet Volume 11.7 fL (9.4-12.3); Monocytes Absolute Auto 0.8 X10*3/uL (0.1-1.2); Monocytes Percent Auto 10.2 % (2-11); Neutrophils Absolute Auto 2.8 x10*3/uL (2.0-8.3); Platelet Count 299 X10*3/uL (160-400); Red Blood Count 5.26 X10*6/uL (4.20-5.50); Red Cell Distribution Width 11.9 % (11.0-16.0); White Blood Count 7.8 X10*3/uL (4.8-10.8)
[2024-03-08 12:23] LABS: Alanine Aminotransferase 76 U/L (0-31); Albumin Level 4.5 g/dL (3.5-5.0); Aspartate Amino Transferase 67 U/L (5-31); Bilirubin Total 2.1 mg/dL (0.0-1.0); Blood Urea Nitrogen 9 mg/dL (9-16); C Reactive Protein 0.31 mg/dL (< or = 0.50); Calcium 9.9 mg/dL (8.4-10.2); Estimated Glomerular Filt Rate > 60; Glucose Random 108 mg/dL (60-115); Magnesium 1.9 mg/dL (1.6-2.6); TSH reflex Free T4 1.33 uIU/mL (0.32-4.0); Total Protein 7.2 g/dL (6.5-8.0)
[2024-03-08 12:34] LABS: Folate 15.2 ng/mL (> or = 4.0); Vitamin B12 498 pg/mL (200-900)
[2024-03-08 12:45] LABS: Alkaline Phosphatase 68 U/L (39-117); Anion Gap 15 (12-20); Carbon Dioxide 22 mmol/L (22-29); Chloride 101 mmol/L (96-108); Potassium 2.7 mmol/L (3.3-5.1); Sodium 135 mmol/L (135-145)
[2024-03-08 16:04] LABS: Erythrocyte Sedimentation Rate 5 MM/HR (0-20)
[2024-03-14 16:32] LABS: Vitamin B6 109.6 ng/mL (2.1-21.7)
== END 2024-03-08 09:28 | disposition home or self-care (01) ==
LOC: HO.HHCL 09:27
PROVIDERS: Student in an Organized Health Care Education/Training Program; Visit Provider Internal Medicine
DX: R00.0 Tachycardia, unspecified (principal); R00.2 Palpitations; M05.9 Rheumatoid arthritis with rheumatoid factor, unspecified; E51.2 Wernicke's encephalopathy
CPT/HCPCS: 36415; 80053; 82607; 82746; 83735; 84100; 84207; 84443; 85025; 85652; 86140

== ENCOUNTER 2024-03-08 15:27 | Emergency (ER) | payer MEDICAID, SELFPAY ==
--- NOTE | ~2024-03-08 | XR_ITS ---
EXAMINATION: XR CHEST CLINICAL INFORMATION: Pneumonia? COMPARISON: June 24, 2023. TECHNIQUE: Frontal view of the chest was obtained. FINDINGS: No significant abnormality is noted involving the heart, lungs, mediastinum, bony thorax or soft tissues. XR/XR chest 1V IMPRESSION: Unremarkable examination. Electronically signed by: Alexandre Mccord MD 03/09/2024 12:08 AM [facility] [place]
[2024-03-08 15:49] VITALS: BP 106/75; PULSE 130; RESP 18; TEMP 36.8; O2SAT 99; BMI 25.2
--- NOTE | 2024-03-08 15:52 | ED_ITS ---
HPI - General Adult General Chief complaint: Recheck/Abnormal Lab/Rx Stated complaint: Abnormal labs, sent by Time Seen by Provider: 03/08/24 16:35 Source: patient Mode of arrival: ambulatory Limitations: no limitations History of Present Illness ED Provider: Pj JOSE HPI narrative: 28-year-old female with past medical history rheumatoid arthritis, fibromyalgia, and GERD, presents to the ED for dizziness described as generalized weakness, nausea, vomiting states mild chest discomfort since yesterday. Patient states yesterday multiple vomiting. Patient had lab work drawn at her primary care provider and they informed her to come to the ED immediately due to low potassium. Related Data Home Medications ?Medication ?Instructions ?Recorded ?Confirmed albuterol sulfate 90 mcg/actuation 2 puff inhalation Q4-6H PRN 12/23/22 09/03/23 aerosol inhaler (Ventolin HFA) Wheezing tocilizumab 162 mg/0.9 mL 162 mg subcut Q2W 10/08/23 10/08/23 subcutaneous pen injector (Actemra ACTPen) Previous Rx's ?Medication ?Instructions ?Recorded pantoprazole 40 mg tablet,delayed 40 mg PO DAILY #90 tabs 07/16/23 release sucralfate 100 mg/mL oral 10 ml PO BID #600 mL 07/16/23 suspension duloxetine 30 mg capsule,delayed See Rx Instructions PO .COMPLEX 10/08/23 release #60 caps ondansetron 4 mg disintegrating 4 mg PO Q6H PRN nausea and 10/14/23 tablet vomiting #14 tabs potassium chloride 10 mEq 10 meq PO BID 1 day #2 caps 03/09/24 capsule,extended release Allergies Allergy/AdvReac Type Severity Reaction Status Date / Time No Known Allergies Allergy Verified 03/08/24 15:50 Review of Systems 2 Review of Systems: Generalized weakness, SOB, chest pain, vomiting Yes all other systems are reviewed and are negative PMFSH Past Medical History Medical History GI bleed Arthritis GERD (gastroesophageal reflux disease) Depression Anxiety HTN (hypertension) Syncope Anti-cardiolipin antibody positive Rash and other nonspecific skin eruption Hiatal hernia Pulmonary nodules Chest pain Early stage of Obesity, morbid, BMI 40.0-49.9 Missed menses COVID-19 Asthma Rheumatoid arthritis Abnormal laboratory test Numbness in both hands Polyarthritis Myofascial pain syndrome Surgical History S/P laparoscopic sleeve gastrectomy Hx of elbow surgery H/O colonoscopy Hx of cholecystectomy H/O breast biopsy Hx of section Family History Family History Maternal Grandmother Diabetes Father HTN (hypertension) Mother HTN (hypertension) Maternal Aunt Colon cancer Social History Social History Household Members: Family Housing: House Are you a primary clinical manager home care to a significant other at home: No Do you presently have visiting nurse or other home services: No Alcohol intake: never Patient Tobacco Use Status: Former Tobacco user Tobacco use type: Cigarette Smoked in Last 30 Days: No Use of substances other than those prescribed or required for medical reasons: No Advance Directives: No Advance Directives Information Provided: No Do you have a plan to hurt others: No Plan Patient : No service: No Gender identity: Female Physical Exam ED Vital Signs: Vital Signs - 24 hr 03/08/24 15:49 03/08/24 16:20 03/08/24 18:17 Temperature 98.2 F 97.9 F 97.5 F Pulse Rate 130 H 100 75 Respiratory Rate 18 16 12 Blood Pressure 106/75 93/66 93/41 L Pulse Oximetry 99 100 100 Oxygen Delivery Method Room Air Room Air Ambu-Bag Room Air 03/09/24 00:17 03/09/24 00:48 Temperature 98.3 F 98.3 F Pulse Rate 85 85 Respiratory Rate 14 14 Blood Pressure 106/72 106/72 Pulse Oximetry 98 98 Oxygen Delivery Method Room Air Room Air BMI result Body Mass Index 25.2 Const General: cooperative, healthy appearing, comfortable, no acute distress, well developed, alert, awake and Physically active Orientation/consciousness: patient oriented x3 HENMT Head: Yes normal to inspection, Yes No palpable skull fracture present, Yes normocephalic and Yes atraumatic Eyes General: appearance normal, both eyes and all related structures Neck Neck: Yes normal visual inspection, Yes full ROM, Yes no lymphadenopathy, Yes no meningeal signs, Yes trachea midline, Yes supple, No anterior neck swelling and No tender Chest Chest palpation & inspection: normal inspection of the chest and normal palpation of entire chest wall Resp Effort & Inspection: normal respiratory effort and able to speak in complete sentences Auscultation: clear to auscultation bilaterally Cardio Jugular venous distension: no JVD Heart sounds: S1 normal heart sound present and S2 normal heart sound present GI Inspection: Yes normal to inspection Palpation (GI): Soft to palpation, not firm, nontender, no guarding and not rigid General: No CVA tenderness and Yes no CVA tenderness Back/Spine/Pelvis Back: no CVA tenderness, No CVA tenderness and No back tenderness Skin General skin exam: no rashes or lesions noted, elasticity normal and turgor normal Neuro General: patient oriented x3, gait normal, tone normal, moves all extremities, Normal light touch and pain sensation, no meningeal signs, no focal motor deficits, CN's II-XI intact bilaterally and normal sensation to monofilament Extrem General: Yes normal to inspection, Yes full ROM and Yes capillary refill normal Psych Appearance: grossly normal, well kempt and not disheveled Course Course Course Narrative: RME performed by Dominga Roca PA-C. Patient is a 28 year old assigned female at presenting to the emergency department with decreased potassium. Detailed physical exam and review of systems are deferred to the office clin asst. EKG and labs ordered. Patient placed back in the waiting room pending room availability and results. Medications Administered Discontinued Medications Generic Name Dose Route Start Last Admin Trade Name Freq PRN Reason Stop Dose Admin Potassium Chloride 10 meq in 100 mls @ 100 mls/hr 03/08/24 16:37 03/08/24 19:38 Potassium Chloride/H20 IV 03/08/24 17:36 Infused ONCE ONE Infusion Potassium Chloride 10 meq in 100 mls @ 100 mls/hr 03/08/24 19:02 03/08/24 21:21 Potassium Chloride/H20 IV 03/08/24 20:01 Infused ONCE ONE Infusion Potassium Chloride 40 meq 03/08/24 16:32 03/08/24 16:51 Potassium Chloride Packet 20 Meq Packet PO 03/08/24 16:33 40 meq ONCE ONE Administration Potassium Chloride 10 meq 03/08/24 23:58 03/09/24 00:16 Potassium Chloride Er 10 Meq Tablet.Er PO 03/08/24 23:59 10 meq ONCE ONE Administration Medical Decision Making Medical Decision Making MDM Narrative: 28-year-old female brought to the ED for low potassium with symptoms of weakness, multiple episode of vomiting yesterday, and slight chest discomfort. Patient denies any fever, chills, or diarrhea. Potassium 2.4. Potassium 40 oral and potassium IV also ordered. Not able to drink 40 oral potassium we will give another IV of potassium. Patient is placed on monitor. 7:03pm: Patient not compliant with drinking oral potassium that was given to her so another IV of potassium was ordered. Oral potassium its own patient has lunch table in his full. 12: 08am: Patient's potassium improved from 2.4 to 3.0. Patient states feeling better. Negative for any neuro deficits. First troponin negative. Pending 2nd troponin chest x-ray and UA. negative. Upon discussion with with pilot plant research technician he states patient has been without her potassium pills was for 5 days. Patient was placed on potassium pills due to severe hypokalemia since December while admitted om [facility]. He states due to patient missing potassium pills for 5 days her primary care provider recommend her having repeat potassium which showed she was hypokalemic. She has primary care recommended patient go back on potassium pills. states patient has had history of hypokalemia in the past. Case was discussed with hospitalist Dr. Porras who states patient is young and patient is feeling better then patient can be discharged with p.o. potassium. Patient has passed p.o. challenge. 12:28am: Patient's x-ray negative pneumonia appears 2nd troponin negative. UA negative for infection. Patient passed p.o. challenge. Patient will be discharged with potassium pills. Abdomen benign. Patient informed to follow-up tomorrow with primary care provider for repeat potassium test. Negative for any neuro deficits. EKG negative STEMI. Patient and explained worrisome signs and informed to return to the ED immediately. Not suspect a stroke. Not suspecting PE, myocardial infarction, CHF, meningitis, or encephalitis. Differential Diagnosis Differential Diagnoses: The differential diagnosis associated with the presentation includes (Hypokalemia, vomiting) Admission/Observation Consideration of admission/observation: Escalation of care including admission/observation considered Consult Healthcare Provider Management of the patient was discussed with: Hospitalist (Dr. Porras) Lab Data MDM Lab Attestation statement: I reviewed the patient's lab results. 03/08/24 16:08 03/08/24 22:19 Labs: Lab Results 03/08/24 03/08/24 03/08/24 Range/Units 16:08 22:19 23:59 WBC 8.7 (4.8-10.8) X10*3/uL RBC 5.29 (4.20-5.50) X10*6/uL Hgb 16.5 H (12.0-16.0) g/dl Hct 45.2 (37.0-47.0) % MCV 85.4 (80.0-98.0) fL MCH 31.2 (27.0-33.0) pg MCHC 36.5 H (31.0-35.0) g/dl RDW 11.9 (11.0-16.0) % Plt Count 294 (160-400) X10*3/uL MPV 10.6 (9.4-12.3) fL Immature Gran % (Auto) 0.3 (0.0-0.4) % Neut % (Auto) 42.0 L (45-73) % Lymph % (Auto) 47.0 H (20-40) % [place] % (Auto) 8.2 (2-11) % Eos % (Auto) 1.7 (0-4) % Baso % (Auto) 0.8 (0-2) % Lymph # (Auto) 4.1 (1.2-4.9) X10*3/uL [place] # (Auto) 0.7 (0.1-1.2) X10*3/uL Eos # (Auto) 0.2 (0.0-0.4) X10*3/uL Baso # (Auto) 0.1 (0.0-0.2) X10*3/uL Abs Immat Gran (auto) 0.03 (0.00-0.03) X10*3/uL Absolute Neuts (auto) 3.7 (2.0-8.3) x10*3/uL Absolute Nucleated RBC 0.000 (0.0-0.012) X10*3/uL Nucleated RBC % (auto) 0.0 (0.0-0.2) /100WBC Sodium 136 (135-145) mmol/L Potassium 2.4 L* 3.0 L D (3.3-5.1) mmol/L Chloride 99 (96-108) mmol/L Carbon Dioxide 26 (22-29) mmol/L Anion Gap 13 (12-20) BUN 9 (9-16) mg/dL Creatinine 0.77 (0.5-1.4) mg/dL Estim Creat Clear Calc 89.2 Estimated GFR > 60 Random Glucose 129 H (60-115) mg/dL Calcium 10.2 (8.4-10.2) mg/dL Magnesium 2.1 (1.6-2.6) mg/dL Total Bilirubin 2.1 H (0.0-1.0) mg/dL AST 62 H (5-31) U/L ALT 85 H (0-31) U/L Alkaline Phosphatase 70 (39-117) U/L Troponin I High Sens 10.5 9.4 (<3.5-17.0) ng/L Total Protein 7.6 (6.5-8.0) g/dL Albumin 4.7 (3.5-5.0) g/dL Beta HCG, Quant < 2 mIU/mL Urine Color Dark Yellow Urine Appearance Cloudy Urine pH 6.0 (5.0-9.0) Ur Specific [place] 1.020 (1.005-1.025) Urine Protein Trace (Neg-Trace) mg/dL Urine Glucose (UA) Negative (Negative) mg/dL Urine Ketones 15 (Negative) mg/dL Urine Blood Negative (Negative) Urine Nitrite Negative (Negative) Ur Leukocyte Esterase Negative (Negative) Independent Interpretation I performed an independent interpretation of an: EKG (Negative) and Plain X-Ray Radiology Impression Discussion of test interpretation with radiology: I have reviewed the radiologist's reading. Independent Historian Clinical information obtained from an independent historian. History obtained from or confirmed by: Spouse () and Other (Patient) External Record Review External record reviewed: Other (Prior visit) Prescription Management I considered prescription management with: Other (Attest) Discharge Plan Discharge Clinical Impression: Hypokalemia Patient Disposition: Home, Self-Care Instructions: Potassium Content of Foods List (ED), Hypokalemia (ED) Additional Instructions: Recommend follow-up today with your primary care provider for repeat potassium. Return to the ED immediately altered mental status, weakness, paralysis of extremities, drooling of the mouth, facial droop, loss of vision, seizure-like movement, abdominal pain, chest pain, shortness of breath, or any other concerning symptoms. You will be given only 1 day of potassium pills. You must follow-up with your primary care provider today or tomorrow to get repeat blood test on your potassium Prescriptions: New potassium chloride 10 mEq capsule, extended release 10 meq PO BID 1 Days Qty: 2 0RF No Action ondansetron 4 mg tablet,disintegrating 4 mg PO Q6H PRN (Reason: nausea and vomiting) Qty: 14 0RF albuterol sulfate [Ventolin HFA] 90 mcg/actuation HFA aerosol inhaler 2 puff inhalation Q4-6H PRN (Reason: Wheezing) Actemra ACTPen 162 mg/0.9 mL pen injector 162 mg subcut Q2W duloxetine 30 mg capsule,delayed release(DR/EC) See Rx Instructions PO .COMPLEX Qty: 60 2RF Rx Instructions: Take 1 tab nightly for 1 week then 2 tabs nightly pantoprazole 40 mg tablet,delayed release (DR/EC) 40 mg PO DAILY Qty: 90 0RF sucralfate 100 mg/mL suspension 10 ml PO BID Qty: 600 2RF Stand Alone Forms: Work/School Release Interventions: ED Discharge Assessment Last Done: 03/09/24 00:48 Discharge Date/Time: 03/09/24 00:50 Print Language: [place]
--- NOTE | 2024-03-08 15:53 | ECG_ITS ---
Test Reason : abnormal labs Blood Pressure : / mmHG Vent. Rate : 106 BPM Atrial Rate : 107 BPM P-R Int : 124 ms QRS Dur : 078 ms QT Int : 330 ms P-R-T Axes : 068 048 015 degrees QTc Int : 438 ms Sinus tachycardia Nonspecific ST and T wave abnormality Abnormal ECG When compared with ECG of 14-OCT-2023 18:01, Premature supraventricular complexes are no longer Present Vent. rate has increased BY 58 BPM T wave inversion no longer evident in Anterior leads Referred By: Dominga Roca Electronically Signed By:KADY SO
[2024-03-08 16:13] LABS: MANUAL DIFF FLAG NO
[2024-03-08 16:16] LABS: Basophils Absolute Auto 0.1 X10*3/uL (0.0-0.2); Basophils Percent Auto 0.8 % (0-2); Eosinophils Absolute Auto 0.2 X10*3/uL (0.0-0.4); Eosinophils Percent Auto 1.7 % (0-4); Hematocrit 45.2 % (37.0-47.0); Hemoglobin 16.5 g/dl (12.0-16.0); Imm Gran Abs Auto 0.03 X10*3/uL (0.00-0.03); Imm Gran Pct Auto 0.3 % (0.0-0.4); Lymphocytes Absolute Auto 4.1 X10*3/uL (1.2-4.9); Mean Corpuscular HGB Conc 36.5 g/dl (31.0-35.0); Mean Corpuscular Hemoglobin 31.2 pg (27.0-33.0); Mean Corpuscular Volume 85.4 fL (80.0-98.0); Mean Platelet Volume 10.6 fL (9.4-12.3); Monocytes Absolute Auto 0.7 X10*3/uL (0.1-1.2); Monocytes Percent Auto 8.2 % (2-11); Neutrophils Absolute Auto 3.7 x10*3/uL (2.0-8.3); Platelet Count 294 X10*3/uL (160-400); Red Blood Count 5.29 X10*6/uL (4.20-5.50); Red Cell Distribution Width 11.9 % (11.0-16.0); White Blood Count 8.7 X10*3/uL (4.8-10.8)
[2024-03-08 16:20] VITALS: BP 93/66; PULSE 100; RESP 16; TEMP 36.6; O2SAT 100
[2024-03-08 16:32] LABS: Alanine Aminotransferase 85 U/L (0-31); Albumin Level 4.7 g/dL (3.5-5.0); Alkaline Phosphatase 70 U/L (39-117); Anion Gap 13 (12-20); Aspartate Amino Transferase 62 U/L (5-31); Bilirubin Total 2.1 mg/dL (0.0-1.0); Blood Urea Nitrogen 9 mg/dL (9-16); Calcium 10.2 mg/dL (8.4-10.2); Carbon Dioxide 26 mmol/L (22-29); Chloride 99 mmol/L (96-108); Creatinine Clr Calc Pharmacy 89.2; Estimated Glomerular Filt Rate > 60; Glucose Random 129 mg/dL (60-115); Magnesium 2.1 mg/dL (1.6-2.6); Potassium 2.4 mmol/L (3.3-5.1); Sodium 136 mmol/L (135-145); Total Protein 7.6 g/dL (6.5-8.0)
[2024-03-08] MEDS: Potassium Chloride/H20 10 MEQ/100 ML PIGGYBACK 100 MEQ IV ×2 (16:49→19:38)
[2024-03-08] MEDS: Potassium Chloride Packet 20 MEQ PACKET 40 MEQ PO (16:51)
--- NOTE | 2024-03-08 18:04 | ED_ITS ---
HPI - General Adult General Chief complaint: Recheck/Abnormal Lab/Rx Stated complaint: Abnormal labs, sent by Dr Time Seen by Provider: 03/08/24 16:35 Related Data Home Medications ?Medication ?Instructions ?Recorded ?Confirmed albuterol sulfate 90 mcg/actuation 2 puff inhalation Q4-6H PRN 12/23/22 09/03/23 aerosol inhaler (Ventolin HFA) Wheezing tocilizumab 162 mg/0.9 mL 162 mg subcut Q2W 10/08/23 10/08/23 subcutaneous pen injector (Actemra ACTPen) Previous Rx's ?Medication ?Instructions ?Recorded pantoprazole 40 mg tablet,delayed 40 mg PO DAILY #90 tabs 07/16/23 release sucralfate 100 mg/mL oral 10 ml PO BID #600 mL 07/16/23 suspension duloxetine 30 mg capsule,delayed See Rx Instructions PO .COMPLEX 10/08/23 release #60 caps ondansetron 4 mg disintegrating 4 mg PO Q6H PRN nausea and 10/14/23 tablet vomiting #14 tabs Allergies Allergy/AdvReac Type Severity Reaction Status Date / Time No Known Allergies Allergy Verified 03/08/24 15:50 PMFSH Past Medical History Medical History GI bleed Arthritis GERD (gastroesophageal reflux disease) Depression Anxiety HTN (hypertension) Syncope Anti-cardiolipin antibody positive Rash and other nonspecific skin eruption Hiatal hernia Pulmonary nodules Chest pain Early stage of Obesity, morbid, BMI 40.0-49.9 Missed menses COVID-19 Asthma Rheumatoid arthritis Abnormal laboratory test Numbness in both hands Polyarthritis Myofascial pain syndrome Surgical History S/P laparoscopic sleeve gastrectomy Hx of elbow surgery H/O colonoscopy Hx of cholecystectomy H/O breast biopsy Hx of section Family History Family History Maternal Grandmother Diabetes Father HTN (hypertension) Mother HTN (hypertension) Maternal Aunt Colon cancer Social History Social History Household Members: Family Housing: House Are you a primary healthcare consulting manager to a significant other at home: No Do you presently have visiting nurse or other home services: No Alcohol intake: never Patient Tobacco Use Status: Former Tobacco user Tobacco use type: Cigarette Smoked in Last 30 Days: No Use of substances other than those prescribed or required for medical reasons: No Advance Directives: No Advance Directives Information Provided: No Do you have a plan to hurt others: No Plan Patient : No service: No Gender identity: Female Physical Exam ED Vital Signs: Vital Signs - 24 hr 03/08/24 15:49 03/08/24 16:20 03/08/24 18:17 Temperature 98.2 F 97.9 F 97.5 F Pulse Rate 130 H 100 75 Respiratory Rate 18 16 12 Blood Pressure 106/75 93/66 93/41 L Pulse Oximetry 99 100 100 Oxygen Delivery Method Room Air Room Air Ambu-Bag Room Air 03/09/24 00:17 Temperature 98.3 F Pulse Rate 85 Respiratory Rate 14 Blood Pressure 106/72 Pulse Oximetry 98 Oxygen Delivery Method Room Air BMI result Body Mass Index 25.2 Medications Administered Discontinued Medications Generic Name Dose Route Start Last Admin Trade Name Freq PRN Reason Stop Dose Admin Potassium Chloride 10 meq in 100 mls @ 100 mls/hr 03/08/24 16:37 03/08/24 19:38 Potassium Chloride/H20 IV 03/08/24 17:36 Infused ONCE ONE Infusion Potassium Chloride 10 meq in 100 mls @ 100 mls/hr 03/08/24 19:02 03/08/24 21:21 Potassium Chloride/H20 IV 03/08/24 20:01 Infused ONCE ONE Infusion Potassium Chloride 40 meq 03/08/24 16:32 03/08/24 16:51 Potassium Chloride Packet 20 Meq Packet PO 03/08/24 16:33 40 meq ONCE ONE Administration Potassium Chloride 10 meq 03/08/24 23:58 03/09/24 00:16 Potassium Chloride Er 10 Meq Tablet.Er PO 03/08/24 23:59 10 meq ONCE ONE Administration Medical Decision Making Lab Data 03/08/24 16:08 03/08/24 22:19 Labs: Lab Results 03/08/24 03/08/24 03/08/24 Range/Units 16:08 22:19 23:59 WBC 8.7 (4.8-10.8) X10*3/uL RBC 5.29 (4.20-5.50) X10*6/uL Hgb 16.5 H (12.0-16.0) g/dl Hct 45.2 (37.0-47.0) % MCV 85.4 (80.0-98.0) fL MCH 31.2 (27.0-33.0) pg MCHC 36.5 H (31.0-35.0) g/dl RDW 11.9 (11.0-16.0) % Plt Count 294 (160-400) X10*3/uL MPV 10.6 (9.4-12.3) fL Immature Gran % (Auto) 0.3 (0.0-0.4) % Neut % (Auto) 42.0 L (45-73) % Lymph % (Auto) 47.0 H (20-40) % [place] % (Auto) 8.2 (2-11) % Eos % (Auto) 1.7 (0-4) % Baso % (Auto) 0.8 (0-2) % Lymph # (Auto) 4.1 (1.2-4.9) X10*3/uL [place] # (Auto) 0.7 (0.1-1.2) X10*3/uL Eos # (Auto) 0.2 (0.0-0.4) X10*3/uL Baso # (Auto) 0.1 (0.0-0.2) X10*3/uL Abs Immat Gran (auto) 0.03 (0.00-0.03) X10*3/uL Absolute Neuts (auto) 3.7 (2.0-8.3) x10*3/uL Absolute Nucleated RBC 0.000 (0.0-0.012) X10*3/uL Nucleated RBC % (auto) 0.0 (0.0-0.2) /100WBC Sodium 136 (135-145) mmol/L Potassium 2.4 L* 3.0 L D (3.3-5.1) mmol/L Chloride 99 (96-108) mmol/L Carbon Dioxide 26 (22-29) mmol/L Anion Gap 13 (12-20) BUN 9 (9-16) mg/dL Creatinine 0.77 (0.5-1.4) mg/dL Estim Creat Clear Calc 89.2 Estimated GFR > 60 Random Glucose 129 H (60-115) mg/dL Calcium 10.2 (8.4-10.2) mg/dL Magnesium 2.1 (1.6-2.6) mg/dL Total Bilirubin 2.1 H (0.0-1.0) mg/dL AST 62 H (5-31) U/L ALT 85 H (0-31) U/L Alkaline Phosphatase 70 (39-117) U/L Troponin I High Sens 10.5 9.4 (<3.5-17.0) ng/L Total Protein 7.6 (6.5-8.0) g/dL Albumin 4.7 (3.5-5.0) g/dL Beta HCG, Quant < 2 mIU/mL Urine Color Dark Yellow Urine Appearance Cloudy Urine pH 6.0 (5.0-9.0) Ur Specific [place] 1.020 (1.005-1.025) Urine Protein Trace (Neg-Trace) mg/dL Urine Glucose (UA) Negative (Negative) mg/dL Urine Ketones 15 (Negative) mg/dL Urine Blood Negative (Negative) Urine Nitrite Negative (Negative) Ur Leukocyte Esterase Negative (Negative) Discharge Plan Discharge Clinical Impression: Hypokalemia Patient Disposition: Home, Self-Care Instructions: Potassium Content of Foods List (ED), Hypokalemia (ED) Additional Instructions: Recommend follow-up today with your primary care provider for repeat potassium. Return to the ED immediately altered mental status, weakness, paralysis of extremities, drooling of the mouth, facial droop, loss of vision, seizure-like movement, abdominal pain, chest pain, shortness of breath, or any other concerning symptoms. Prescriptions: No Action ondansetron 4 mg tablet,disintegrating 4 mg PO Q6H PRN (Reason: nausea and vomiting) Qty: 14 0RF albuterol sulfate [Ventolin HFA] 90 mcg/actuation HFA aerosol inhaler 2 puff inhalation Q4-6H PRN (Reason: Wheezing) Actemra ACTPen 162 mg/0.9 mL pen injector 162 mg subcut Q2W duloxetine 30 mg capsule,delayed release(DR/EC) See Rx Instructions PO .COMPLEX Qty: 60 2RF Rx Instructions: Take 1 tab nightly for 1 week then 2 tabs nightly pantoprazole 40 mg tablet,delayed release (DR/EC) 40 mg PO DAILY Qty: 90 0RF sucralfate 100 mg/mL suspension 10 ml PO BID Qty: 600 2RF Print Language: Indian
[2024-03-08 18:17] VITALS: BP 93/41; PULSE 75; RESP 12; TEMP 36.4; O2SAT 100
[2024-03-08 21:22] LABS: Troponin-I High Sensitivity 10.5 ng/L (<3.5-17.0)
--- NOTE | 2024-03-08 23:04 | PC.NURSE ---
pt was not able to drink potassium drink. Refused to finished it, PA aware
[2024-03-08 23:36] LABS: HCG Quantitative < 2 mIU/mL
[2024-03-09] LABS: Troponin-I High Sensitivity 9.4 ng/L (<3.5-17.0)
[2024-03-09 00:09] LABS: Appearance Urine Cloudy; Color Urine Dark Yellow; Glucose Urine UA Negative (Negative); Leukocyte Esterase Urine Negative (Negative); Nitrite Urine Negative (Negative); Urine Blood Negative (Negative); Urine Ketones 15 mg/dL (Negative); Urine Protein Trace mg/dL (Neg-Trace)
[2024-03-09] MEDS: Potassium Chloride ER 10 MEQ TABLET.ER PO (00:16)
[2024-03-09 00:17] VITALS: BP 106/72; PULSE 85; RESP 14; TEMP 36.8; O2SAT 98
[2024-03-09 00:48] VITALS: BP 106/72; PULSE 85; RESP 14; TEMP 36.8; O2SAT 98
--- NOTE | 2024-03-09 01:36 | PM.EVENT ---
Event Note Date of Service: 03/09/24 Event Note: Contacted by ED provider to admit patient for hypokalemia that is already improving. I reviewed patient's chart. She has hx of GERD that presents to ED after K+ was low on outpatient blood workup. It seems that she had multiple episodes of vomiting yesterday. Received total of 30 mEq of KCl PO and IV which increased K+ level from 2.4 to 3.0 (more than expected). I recommeded ED to check test, make sure pt is tolerating PO if so to give extra PO KCl 40 mEq and send home with oral PO meds and followup with primary care physician. Time Spent With Patient Time: Total time managing care of this patient today ____ minutes.
== END 2024-03-09 00:50 | disposition home or self-care (01) ==
PROVIDERS: Physician Assistant; Physician Assistant Medical; Emergency Provider Student in an Organized Health Care Education/Training Program; PCP Internal Medicine
DX: E87.6 Hypokalemia (principal); R42 Dizziness and giddiness; R53.1 Weakness; R11.2 Nausea with vomiting, unspecified; M06.9 Rheumatoid arthritis, unspecified; I10 Essential (primary) hypertension; J45.909 Unspecified asthma, uncomplicated; Z79.899 Other long term (current) drug therapy
CPT/HCPCS: 36415; 71045; 80053; 81003; 83735; 84132; 84484; 84702; 85025; 93005; 96365; 96366; 99285; J3480

== ENCOUNTER → 2024-03-08 15:53 | Outpatient (BNV) | payer MEDICAID, SELFPAY | PROVIDERS: Emergency Provider Student in an Organized Health Care Education/Training Program; PCP Internal Medicine; Visit Provider Internal Medicine | DX: R00.0 Tachycardia, unspecified (principal); R94.31 Abnormal electrocardiogram [ECG] [EKG] | CPT/HCPCS: 93010 ==

== ENCOUNTER 2024-03-09 11:53 | Outpatient (REF) | payer MEDICAID, SELFPAY ==
[2024-03-09 13:32] LABS: Anion Gap 15 (12-20); Blood Urea Nitrogen 9 mg/dL (9-16); Calcium 10.1 mg/dL (8.4-10.2); Carbon Dioxide 23 mmol/L (22-29); Chloride 101 mmol/L (96-108); Estimated Glomerular Filt Rate > 60; Glucose Random 117 mg/dL (60-115); Potassium 3.1 mmol/L (3.3-5.1); Sodium 136 mmol/L (135-145)
== END 2024-03-09 11:54 | disposition home or self-care (01) ==
LOC: HO.HHCL 11:53
PROVIDERS: Visit Provider Internal Medicine
DX: E87.6 Hypokalemia (principal)
CPT/HCPCS: 36415; 80048

== ENCOUNTER 2024-03-26 09:38 | Outpatient (REF) | payer MEDICAID, SELFPAY ==
[2024-03-26 11:24] LABS: Anion Gap 12 (12-20); Blood Urea Nitrogen 8 mg/dL (9-16); Calcium 9.7 mg/dL (8.4-10.2); Carbon Dioxide 24 mmol/L (22-29); Chloride 104 mmol/L (96-108); Estimated Glomerular Filt Rate > 60; Glucose Random 120 mg/dL (60-115); Potassium 3.3 mmol/L (3.3-5.1); Sodium 137 mmol/L (135-145)
== END 2024-03-26 09:39 | disposition home or self-care (01) ==
LOC: HO.HHCL 09:38
PROVIDERS: Visit Provider Internal Medicine
DX: E51.2 Wernicke's encephalopathy (principal)
CPT/HCPCS: 36415; 80048

== ENCOUNTER 2024-04-12 11:38 | Outpatient (REF) | payer MEDICAID, SELFPAY ==
--- OUTSIDE RECORDS SUMMARY | 2024-04-12 11:40 | XMS_ITS | Continuity of Care Document ---
Author Organization Bisi Truong [facility] [place] [facility] Address NEWS WIRE PHOTO OPERATOR [facility] [address] [place] [address] Phone Care Team Providers Care Preparatory Technician Name Role Phone Lance MARIAHLucio Unavailable U navailable Allergies, Adverse Reactions, Alerts Substance Reaction Status Criticality No Known Allergies Active No Inform ation Medications Medication Instructions Dosage Effective Dates (start - stop) Status Comments metronidazole 0.75 % topical gel apply by topical route 2 times every day a thin layer to the affected area(s) in the morning and evening 0.00 - Active clindamycin HCl 300 mg capsule take 1 capsule by oral route every 8 hours for 10 days - No Longer Active Procedures Procedure Date No Show TOBACCO NON-USER SYST BP < 130 MM HG Systolic BP < 140 mmhg DIAST BP < 80 MM HG Diastolic BP < 90 mmhg WEIGHT RECORD BODY MASS INDEX DOCD OFFICE/OUTPATIENT VISIT, NEW MEDICAL SERVICES AFTER HRS TOBACCO NON-USER SYST BP < 130 MM HG Systolic BP < 140 mmhg DIAST BP < 80 MM HG Diastolic BP < 90 mmhg WEIGHT RECORD BODY MASS INDEX DOCD Advance Directives Directive Yes / No Effective Date File Name No Information Encounters Encounter Description Practice Location Reason(s) For Visit Diagnoses Date Provider Providers Copied on Encounter Bisi Truong [facility] , NEWS WIRE PHOTO OPERATOR [facility] [address] [place], [address], [place] tel:[phone] Z[facility] Lorne Sorto No-show for appointment Sep-0 8- 0 Lance Valdes. [address], [id number] , [place], [place], [id number], [place]. tel:[phone] , [facility] [address] [place] [address], [place], [address], [place] tel:[phone] [facility] No Information Sep-0 3-202 0 Zackery Flowers. [address] [facility] [address], [id number] , [place], [place], [id number], [place]. tel:[phone] OFFICE/OUTPAT IENT VISIT, [facility] Bisi [facility] , [facility] [address] [place] [address], [place], [address], [place] tel:[phone] [facility] rash (chief complaint) Rosacea, acne Sep-0 2- 0 Zackery Flowers. [address] [facility] [address], [id number] , [place], [place], [id number], [place]. tel:[phone] Family History Family Member Type Diagnosis Age At Onset No Information Payers Payer name Insurance type Covered alliance party ID Authoriza tidebi(s) [facility] [id number] Social History Type Description Quantity Date Captured Comments Alcohol Use Details Unknown Caffeine Use Details Unknown Tobacco Use Status No Information Smoking Status No Information Sex Female Chief Complaint And Reason For Visit No Information Reason For Referral Reason For Referral No Information Plan Of Treatment Date Type Action Status Referral Ordered: Dermatology (related to Rosacea, acne) ordered Referral Ordered: Referrals: Dermatology. Consult ordered History Of Present Illness Encounter Date Complaint History Of Prese nt Illness rash The patient pres ents for rash. Affected area(s) include face. The patient describes the affected area(s) as burning, itchy, red and stinging. Associated symptoms include erythema (skin) and pruritus. Additional information: For the past week pt week she started breaking out all over her face and it is very itchy and sometimes sevilla. Functional Status Date Functional Assessmen t No Information Instructions Date Instruction Additional Infor danette Take medication as d irected Avoid hot drinks and spicy foods, red wine and other alcoholic beverages, temperature extremes., sunlight or windTry placing ice packs on your face to calm down the inflammationF/U with DermRTO if facial irritation worsens not decreased after abx completion Related to Rosacea, acne Assessments Type Assessment Date assessment No-show for appointment 020 Patient Care Teams Name Effective Dates (start - stop) Status Members No Information
[2024-04-12 13:29] LABS: Potassium 3.9 mmol/L (3.3-5.1)
[2024-04-12 13:39] LABS: Anion Gap 12 (12-20); Blood Urea Nitrogen 6 mg/dL (9-16); Calcium 9.6 mg/dL (8.4-10.2); Carbon Dioxide 23 mmol/L (22-29); Chloride 110 mmol/L (96-108); Estimated Glomerular Filt Rate > 60; Glucose Random 94 mg/dL (60-115); Potassium 3.9 mmol/L (3.3-5.1); Sodium 141 mmol/L (135-145)
== END 2024-04-12 11:39 | disposition home or self-care (01) ==
LOC: HO.HHCL 11:38
PROVIDERS: Visit Provider Internal Medicine
DX: E87.6 Hypokalemia (principal)
CPT/HCPCS: 36415; 80048; 84132

== ENCOUNTER 2024-04-19 13:25 | Outpatient (REF) | payer MEDICAID, SELFPAY ==
--- NOTE | ~2024-04-19 | XR_ITS ---
EXAMINATION: XR KNEE, RIGHT CLINICAL INFORMATION: pain COMPARISON: None available. TECHNIQUE: Four views of the right knee. FINDINGS: No fracture or joint effusion. Alignment is anatomic. Joint spaces are maintained. No abnormal soft tissue calcification. XR/XR knee RT 4V IMPRESSION: Unremarkable right knee. Electronically signed by: Mark Vasquez MD 04/19/2024 02:44 PM [facility]
--- OUTSIDE RECORDS SUMMARY | 2024-04-19 15:43 | XMS_ITS | Continuity of Care Document ---
Author Organization [facility]isi Truong [facility] Address SIGNAL SYSTEM TESTING MAINTAINER [facility] [address] [place] [address] Phone Care Team Providers Care Black Top Raker Name Role Phone Lance MARIAHLucio Unavailable U [...] Provider Providers Copied on Encounter Bisi Truong [facility] , SIGNAL SYSTEM TESTING MAINTAINER [facility] [address] [place], [address], [place] tel:[phone] Z[facility] Lorne Sorto No-show for appointment Sep-0 8- 0 Lance Valdes. [address], [id number] , [place], [place], [id number], [place]. tel:[phone] [facility] [address] [place] [address], [place], [address], [place] tel:[phone] [facility] No Information Sep-0 3-202 0 Zackery Flowers. [address] [facility] [address], [id number] , [place], [place], [id number], [place]. tel:[phone] OFFICE/OUTPAT IENT VISIT, [facility] Bisi [facility] , [facility] [address] [place] [address], [place], [address], [place] tel:[phone] [facility] rash (chief complaint) Rosacea, acne Sep-0 2- 0 Zackery Flowers. [address] [facility] [address], [id number] , [place], [place], [id number], [place]. tel:[phone] Family History Family Member Type Diagnosis Age At Onset No Information Payers Payer name Insurance type Covered alliance party ID Authoriza tidebi(s) [facility] [id number] Social History Type Description Quantity Date Captured [...]
== END 2024-04-19 13:26 | disposition home or self-care (01) ==
LOC: HO.HHCX 13:25
PROVIDERS: Visit Provider Internal Medicine
DX: M25.561 Pain in right knee (principal); G89.29 Other chronic pain
CPT/HCPCS: 73564

== ENCOUNTER → 2024-04-19 13:26 | Outpatient (BNV) | payer MEDICAID, SELFPAY | PROVIDERS: Visit Provider Radiology Diagnostic Radiology | DX: M25.561 Pain in right knee (principal) | CPT/HCPCS: 73564 ==

== ENCOUNTER 2024-06-07 12:54 | Outpatient (AMB) | payer MEDICAID, SELFPAY ==
--- NOTE | 2024-06-07 13:20 | A.OFFVIS_ITS ---
Vital Signs 06/07/24 13:22 Height 5 ft 1 in Weight 125 lb 10.616 oz BMI 23.7 BP 110/60 Blood Pressure Location Lt brachial Position Sitting Pulse 76 Pulse Source Monitor Intake Visit Reasons: fu req by Dr. Doyle /tachycardia Pressure Dispatcher Required: Yes Pressure Dispatcher Name: [id number] Allergies No Known Allergies Allergy (Verified 03/08/24 15:50) Medication List - Last Reconciled 06/07/24 by Shadi Godinez MD albuterol sulfate 90 mcg/actuation (Ventolin HFA) 2 puffs inhalation Q4-6H PRN ondansetron 4 mg PO Q6H PRN pantoprazole 40 mg PO DAILY sucralfate 10 mL PO BID HPI Comments Details: Leah was referred here for evaluation of chest pain. Patient was steady 1 year female status post bariatric surgery and has lost lot of weight. However she was not done well with bariatric surgery. She was developed some chest pain syndrome which is mostly at rest when she was laying down. History was obtained with help of healthcare interpreter. The symptoms can last up to 4 days continuously. Symptoms described as chest tightness. Patient has also that of some other side effects related to therapy with difficulty in walking and weakness. She has not had any significant lightheadedness or syncopal episode. Denies any prolonged palpitation irregular heartbeat. She had workup done last year with abnormal EKG and myocardial perfusion imaging was within normal limits. Echocardiogram showed normal LV ejection fraction 50-55% without major valvular abnormality. [facility] Medical History GI bleed Arthritis GERD (gastroesophageal reflux disease) Depression Anxiety HTN (hypertension) Syncope Anti-cardiolipin antibody positive Rash and other nonspecific skin eruption Hiatal hernia Pulmonary nodules Chest pain Early stage of Obesity, morbid, BMI 40.0-49.9 Missed menses COVID-19 Asthma Rheumatoid arthritis Abnormal laboratory test Numbness in both hands Polyarthritis Myofascial pain syndrome Surgical History S/P laparoscopic sleeve gastrectomy Hx of elbow surgery H/O colonoscopy Hx of cholecystectomy H/O breast biopsy Hx of section Family History Maternal Grandmother Diabetes Father HTN (hypertension) Mother HTN (hypertension) Maternal Aunt Colon cancer Social History Household Members: Family Housing: House Are you a primary animal care giver to a significant other at home: No Do you presently have visiting nurse or other home services: No Alcohol intake: never Patient Tobacco Use Status: Former Tobacco user Tobacco use type: Cigarette service: No Gender identity: Female Review of Systems Card Reports chest pain, Reports palpitations and Reports dyspnea Resp Reports dyspnea Endo Reports palpitations Physical Exam Vital Signs: Last Vital Signs Pulse 76 06/07/24 13:22 BP 110/60 06/07/24 13:22 BMI result Body Mass Index 23.7 Const General: cooperative, comfortable, no acute distress and awake Nutritional Appearance: average body habitus Orientation/consciousness: patient oriented x3 Neck Neck: Yes trachea midline, Yes supple and Yes no JVD Resp Effort & Inspection: normal respiratory effort Auscultation: clear to auscultation bilaterally Cardio Jugular venous distension: no JVD Palpation: normal PMI Rate: regular rate Rhythm: regular rhythm Heart sounds: S1 normal heart sound present, S2 normal heart sound present, no click and no gallops GI Auscultation: normal bowel sounds Neuro General: patient oriented x3 and no focal motor deficits Extrem General: Yes no clubbing, cyanosis or edema Assessment & Plan Assessment & Plan (1) Chest pain: Code(s): R07.9 - Chest pain, unspecified Plan: Patient was prolonged episode of chest pain post bariatric surgery. The nature of chest pain as well as prior workup from cardiac perspective showing no structural heart abnormality with normal EKG today unlikely that this chest pain is cardiac in origin. Consider noncardiac chest pain possibly related to esophageal/gastric disorder. Advised her to seek GI out bariatric consultation. No further cardiac workup is indicated at this point time. Will follow up if need be Coding Level of Care Code Est Pt Level 3 (38525) Complex EM visit Add On G2211 Diagnoses Chest pain R07.9
[2024-06-07 13:22] VITALS: BP 110/60; PULSE 76; BMI 23.7
--- OUTSIDE RECORDS SUMMARY | 2024-06-07 14:37 | XMS_ITS | Encounter Summary ---
Author Organization [employer] Address [address] [facility] [address] [place] [address] Care Team Providers Care Button Facing Machine Operator Name Role Phone Marzena Strong MD Primary Care Provide r Reason for Visit * Reason Onset Date Comments Medication Question 02/02/2024 Encounter Details Date Type Department Care Team ([facility] st Contact Info) Description 02/02/2024 Telephone [facility] [address] [place], [place] [phone] Marzena Strong MD [address] [place], [place] [phone] Medication Question Social History Tobacco Use Types Packs/Day Years Used Date Smoking Tobacco: Every Day Cigarettes Passive Smoke Exposure: Current Smokeless Tobacco: Never Alcohol Use Standard Drinks/Week Comments Not Currently 0 (1 standard drink = 0.6 oz pur e alcohol) Depression Answer Date Recorded Patient Health Questionnaire-9 Score 0 01/29/2024 Patient Health Questionnaire-9 Score 0 01/29/2024 Last PHQ-9: Questionnaire Data Not on file 1 Housing Stability Answer Date Recorded What is your housing situation today? I have erika serrano 01/29/[address] you li ve. Do you have problems with any of the following? None of the above 01/29/2024 Food Insecurity Answer Date Recorded Within the past 12 months, y ou worried that your food would run out before you got money to buy more: Never True 01/29/2024 Within the past 12 months,th e food you bought just didn't last and you didn't have enough money to get more: Never True Transportation Answer Date Recorded In the past 12 months, has l ack of transportation kept you from medical appts, meetings, work or from getting things needed for daily living? No 01/29/2024 Utilities Answer Date Recorded In the past 12 months, has t he electric, gas, oil or water company threatened to shut off services in your home? No 01/29/2024 Depression Answer Date Recorded Patient Health Questionnaire-2 Score 0 01/29/2024 Internet Access Answer Date Recorded Internet Access Q1 No 01/29/2024 Internet Access Q2 I do not want or need it 01/12 Comments Unknown Sex and Gender Information Value Date Recorded Sex Assigned at Female 02/11/2022 10:36 AM EDT Legal Sex Female 10:36 AM EDT Gender Identity Female 02/11/2022 10:36 AM EDT Sexual Orientation Straight 02/11/2022 10 :36 AM EDT documented as of this encounter Miscellaneous Notes * Telephone Encounter - Jorje Osullivan - 02/02/2024 11:43 AM EDT Tc from [facility], pt's VNA, stating pt is requesting lidocaine patches or some sort of patches in general for pain. Pt further stated she had a visit with pcp last week but forgot to mention it. If any questions you can contact Gema at [phone]. documented in this encounter Plan of Treatment Upcoming Encounters Date Type Department Care Team (Late st Contact Info) Description 08/12/2024 9:00 AM EDT Office Visit [facility] [address] [place] [address] Marzena Strong MD [address] [place] [address] documented as of this encounter Visit Diagnoses Not on filedocumented in this encounter Additional Health Concerns Assessment Noted Time PHQ-9 Depression Total Score: 0 01/29/20 9:42 AM EDT documented as of this encounter Care Teams Button Facing Machine Operator Relationship Specialty Start Date End Date Marzena Strong MD [address] [place] [address] PCP - General Family Medicine 04/01/19 Ricarda Osullivan Robotic Weld TechnicianFilm Splicer 04/02/24 documented as of this encounter
--- OUTSIDE RECORDS SUMMARY | 2024-06-07 14:37 | XMS_ITS | Clinical Summary ---
Author Organization [facility] Address [address] [facility] [address] [place] [address] [place] [address] Care Team Providers Care Compounder Flavorings Name Role Phone Marzena Strong MD Primary Care Provide r Encounters Date Type Department Care Team Description 04/08/2024 Office Communication [facility] [address] [place] [address] Fransisco Ohara [place] 04/02/2024 Telephone [facility] [address] [place] [address] Ledy Kennedy MA from Last 3 Months Social History Tobacco Use Types Packs/Day Years Used Date Smoking Tobacco: Never Assessed Comments Unknown Sex and Gender Information Value Date Recorded Sex Assigned at Not on file Legal Sex Female 4:02 PM EST Gender Identity Not on file Sexual Orientation Not on file Plan of Treatment Upcoming Encounters Date Type Department Care Team (Late st Contact Info) Description 08/23/2024 2:00 PM EDT Office Visit [facility] [address] [place] [address] Davi Gooden MD [address] [place] [address] [place] [address] Health Maintenance Due Date Last Done Comments Hepatitis B Vaccine (1 of 3 - 19+ 3-dose series) 2012 Influenza Vaccine (#1) 2023 Pneumococcal Vaccine: Pediat rics (0 to 5 Years) and At-Risk Patients (6 to 64 Years) Aged Out No longer eligi ble based on patient's age to complete this topic Insurance [facility] Care Teams Compounder Flavorings Relationship Specialty Start Date End Date Marzena Strong MD [address] [place] [phone] PCP - General Internal Medicine 04/08/24
--- OUTSIDE RECORDS SUMMARY | 2024-06-07 14:37 | XMS_ITS | Encounter Summary ---
Author Organization [employer] Address [address] [place] [address] [address] [place] [address] Care Team Providers Care Radio Intelligence Operator Name Role Phone Marzena Strong MD Primary Care Provide r Reason for Visit * Reason Onset Date Comments Results 07/24/2022 Encounter Details Date Type Department Care Team ([facility] st Contact Info) Description 07/24/2022 Telephone [facility] [address] [place] [address] Marzena Strong MD [address] [place], [place] [phone] Results Social History Tobacco Use Types Packs/Day Years Used Date Smoking Tobacco: Never Smokeless Tobacco: Never Alcohol Use Standard Drinks/Week Comments Not Currently 0 (1 standard drink = 0.6 oz pur e alcohol) Comments Unknown Sex and Gender Information Value Date Recorded Sex Assigned at Female 02/11/2022 10:36 AM EDT Legal Sex Female 10:36 AM EDT Gender Identity Female 02/11/2022 10:36 AM EDT Sexual Orientation Straight 02/11/2022 10 :36 AM EDT COVID-19 Exposure Response Date Recorded In the last 10 days, have yo u been in contact with someone who was confirmed or suspected to have Coronavirus/COVID-19? No / Unsure 07/26/2022 9:15 AM EDT documented as of this encounter Miscellaneous Notes * Telephone Encounter - Darcie Hall RN - 07/26/2022 9:23 AM EDT Placed call to pt regarding message below. Pt informed of lab results and need to continue taking Vit D as levels were low. Pt stated needing refill and will queue to provider. * Telephone Encounter - Kalina Melton - 07/26/2022 8:10 AM EDT Tc from pt requesting a call back with lab results. Please contact pt at [phone] * Telephone Encounter - GAEL Basilio - 07/25/2022 5:48 PM EDT Please call Leah to review results: Initial ISAMAR screening for conditions such as lupus was negative. Thyroid testing normal. Vitamin D level continues to be low. Would recommend continuation with supplement. Please cue med refill if needed. Thanks. * Telephone Encounter - Rebecca Rasmussen RN - 07/25/2022 10:01 AM EDT RN will forward to ordering provider. Please review labs ordered at visit 07/23/22 and advised Team Nurses. TY Tc from pt requesting status on lab results. Please contact pt at [phone] * Telephone Encounter - Mohit Sousa - 07/25/2022 9:06 AM EDT Tc from pt requesting status on lab results. Please contact pt at [phone] * Telephone Encounter - Mohit Sousa - 07/24/2022 3:29 PM EDT Tc from pt requesting lab work results Please contact pt at [phone] documented in this encounter Plan of Treatment Upcoming Encounters Date Type Department Care Team (Late st Contact Info) Description 08/12/2024 9:00 AM EDT Office Visit [facility] [address] [place] [address] Marzena Strong MD [address] [place], [place] [phone] documented as of this encounter Visit Diagnoses Not on filedocumented in this encounter Care Teams Radio Intelligence Operator Relationship Specialty Start Date End Date Marzena Strong MD [address] [place] [address] PCP - General Family Medicine 04/01/19 Ricarda Osullivan Pest Control Service TechnicianManager Technical Sales 04/02/24 documented as of this encounter
--- OUTSIDE RECORDS SUMMARY | 2024-06-07 14:37 | XMS_ITS | Data Portability ---
Author Organization [place] - [facility] Address [address] [place] [address] Assessment No assessment recorded. Plan of Treatment Reminders Order Date Submit Date Provider Last Modified By Organization Details Last Modified Time Details Appointments None recorded. Lab influenza virus A + B and SARS CoV 2 (COVID-19) and RSV RNA panel, KAYLA+probe, respiratory specimen [address], [address] [place] [address] [place], [address], 3 15:54:56 strep group A, DNA, swab [address], [address] [place], [address], 3 15:54:54 Referral None recorded. Procedures None recorded. Surgeries None recorded. Imaging XR, foot, 3 or more view 2022 023 [email or web address] Not available 14:30:53 Medication Orders penicillin V potassium 500 mg tablet 2022 023 [facility], [address] [place], [address], 3 15:55:02 naproxen 500 mg tablet 2022 023 [facility], [address] [place], [address], 3 15:55:05 acetaminoph en 500 mg tablet 2022 023 [email or web address] [facility] [address], [address] [place], [address], 14:30:53 Patient TargetsNo targets recorded. Patient InstructionsNo instructions recorded. Reason for Referral None Reported. Results Created Date Observation Date Name Description Value Unit Range Abnormal Flag Note LastModifiedBy Organization Detail LastModifiedTime 02/21/20 23 02/20/2023 influ abena virus A + B and SARS CoV 2 (COVI D-19) and RSV RNA panel , KAYLA+p robe, respi rator y speci men flu A negati ve negati ve normal Not Available [facility] [address] [place], [address], 02/20/2023 14:34:41 02/21/2002/20/2023 influ abena virus A + B and SARS CoV 2 (COVI D-19) and RSV RNA panel , KAYLA+p robe, respi rator y speci men flu B negati ve negati ve normal Not Available [facility] [address] [place], [address], 02/20/2023 14:34:41 02/21/20 23 02/20/2023 influ abena virus A + B and SARS CoV 2 (COVI D-19) and RSV RNA panel , KAYLA+p robe, respi rator y speci men sars-cov-2 negati ve negati ve normal Not Available [facility] [address] [place], [address], 02/20/2023 14:34:41 02/21/20 23 02/20/2023 influ abena virus A + B and SARS CoV 2 (COVI D-19) and RSV RNA panel , KAYLA+p robe, respi rator y speci men RSV negati ve negati ve normal Not Available [facility] [address] [place], [address], 02/20/2023 14:34:41 11/0902/20/2023 strep group A, DNA, swab strep A detect ed not detect ed abnormal Not Available [facility] [address], [place], [address], 02/20/2023 14:34:47 12/12/1912/11/2022 XR, foot, 3 or more view No observ ation record ed. [email or web address] Not Available 12/12 13:44:44 Result Notes None recorded. Problems Name Problem SNOMED Code Status Onset Date Resolution Date Notes Provider Name and Address Organization Details Recorded Time Acute pharyngit is 085405881 Active 2020 Acute pharyngiti s, unspecifie d Not Available [facility] 2 07:03:08 Suspected respirato ry disease 450045771 Active 2020 Contact with and (suspected ) exposure to other viral communicab le diseases Not Available [facility] 2 07:03:08 Problem Notes None recorded. Procedures Surgical History None recorded. Imaging Results Imaging Date Name Status LastModified by Organiz ation Details LastModified Time 12/11/2022 XR, foot, 3 or more view completed [email or web address] Information not available 12/12/2022 13:44:44 Procedure Notes None recorded. Medical Equipment None Reported. Allergies No known drug allergies Medications Name Sig Start Date Stop Date Status Note LastModified by Organization Details LastModified Time penicillin V potassium 500 mg tablet Take 1 tablet twice a day by oral route for 10 days. 2022 active Not Available Not Available Not Avai lable acetaminophen 500 mg tablet Take 2 tablets by oral route. 2022 active Not Available Not Available Not Avai lable naproxen 500 mg tablet Take 1 tablet twice a day by oral route as needed. 2022 active Not Available Not Available Not Avai lable Vitals Date Recorded Body height Body temperature Body mass index (BMI) Body weight Heart rate Systolic blood pressure Diastolic blood pressure Provider Name and Address Organization Details Last Updated DateTime 3 163.83 cm 98.5 [degF] 42.1 kg/m2 861264. 5 g 71 /min 108 mm[Hg] 73 mm[Hg] [facility] 3 11:38:42 Date Recorded Body height Body mass index (BMI) Body weight Body temperature Heart rate Systolic blood pressure Diastolic blood pressure Provider Name and Address Organization Details Last Updated DateTime 3 163.83 cm 42.8 kg/m2 240092. 87 g 97.6 [degF] 69 /min 107 mm[Hg] 72 mm[Hg] Monica Galvan [facility] 3 16:44:42 Date Recorded Body height Body temperature Body mass index (BMI) Body weight Heart rate Systolic blood pressure Diastolic blood pressure Provider Name and Address Organization Details Last Updated DateTime 3 163.83 cm 98.4 [degF] 41.1 kg/m2 991321. 95 g 67 /min 106 mm[Hg] 74 mm[Hg] Marzena Cerna [facility] 3 14:03:15 Date Recorded Body height Body mass index (BMI) Body weight Body temperature Heart rate Systolic blood pressure Diastolic blood pressure Provider Name and Address Organization Details Last Updated DateTime 3 163.83 cm 42.1 kg/m2 407911. 5 g 98.5 [degF] 72 /min 111 mm[Hg] 75 mm[Hg] Araceli Banks [facility] 3 15:11:02 Social History None recorded. Functional Status None recorded. Mental Status None recorded. Family History Nothing Reported. Medical History No medical history recorded. Gynecological HistoryNo gynecological history recorded. Obstetrics History GPAL:G 0 P 0 0 0 0 Past Encounters Encounter ID Performer Location Encounter Start Date Encounter Closed Date Diagnosis/Indication Diagnosis SNOMED-CT Code Diagnosis ICD10 Code Diagnosis Note [id number] CHENG STOCK NP [facility] [address] [place] [address] [place] [address] 12/11/2022 11:09:34 12/11/2022 14:31:05 Pain of left ankle joint [id number] 3951479 M25.572 Xray negative for bony abnormalit ies.Provid ed low walking boot for left foot.Expla ined to pt that hairline fractures may still be present. If not improving after wearing walking boot for two weeks, return for repeat xray left foot.Sugge sted wearing walking boot while walking, as well as RICE therapy. [id number] CHENG STOCK, MARINA [facility] [address] [place] [address] [place] [address] 12/18/2022 16:33:23 12/18/2022 17:18:18 Pain of left ankle joint 7497969530 1956221 M25.572 Continue to wear walking boot at left foot.Remin ded pt of RICE treatment for left foot pain.Use Acetaminop hen PRN pain.I completed pt's paperwork for Disability and Leave Health Care Provider Statement for her work.If still experienci ng pain at Jan 11, return for repeat xray investigat ing hairline fracture. [id number] [place] [facility] [address] [place] [address] [place] [address] 02/20/2023 13:39:52 02/20/2023 15:42:53 Exposure to SARS-CoV-2 552436736 Z20.822 Neg for covid, flu, RSV Cough 41914987 R05.9 Discussed OTC medication s safe to take for cough. Drink plenty of fluids, honey Muscle pain 79425984 M79 .10 2/ strep, will treat with NSAID Acute pharyngitis 292650 003 J02.9 Positive for strep, will treat. Drink plenty of water, switch out toothbrush in 2 days, wash door handles and hands frequently . Return if no improvemen t in 2 days [id number] CHENG STOCK NP [facility] [address] [place] [address] 02/24/2023 15:04:32 02/24/2023 16:09:24 COVID-19 200187669 U07.1 Pt reports improved condition. I have completed [facility] paperwork for pt to return to work 02-27-23. Streptococ shade sore throat 69777011 J02.0 Reports improved condition. Health Concerns Section Related Observation LastModified by Organization Detai ls LastModified Time None Recorded Concern Status LastModified by Organization Details LastModified Time None Recorded Advance Directives Directive None Recorded Payers Encounter Date Sequence Insurance Name Policy Number Policy Bajwa Covered Member ID Bajwa Member ID Guarantor Name 12/11/2022 1 *SELF PAY* Viktoria aHll 12/18/2022 1 *SELF PAY* Viktoria Thornton Hall 02/20/2023 1 *SELF PAY* Viktoria Hall 02/24/2023 1 *SELF PAY* Viktoria Hall Notes Date Note Type Note Provider Name and Address Organization Details Recorded Time 12/11/2022 text/html Pt reports left foot pain that began yesterday. Pt reports inversion injury to left ankle.Pt is weight bearing with pain.Points to pain at inferior aspect of left lateral malleolus and dorsal aspect of left foot. CHENG STOCK NP [address], [place], [address], [facility] 12/11/2022 14:30:56 12/18/2022 text/html Pt was seen here Dec 11 for injury at right foot.No bony abnormalities per xray.Pt has been wearing walking boot since that visit and reports decrease in pain and walking with fewer problems.Pt understands that hairline fracture is a possibility and can return in one month for xray if still experiencing foot pain.Pt here today for provider to complete and fax Disability and Leave Health Care Provider Statement for work. CHENG STOCK NP [address], [place], [address], [facility] 12/18/2022 17:21:15 02/20/2023 text/html Patient with bod y aches, FRANCISCO, fever, cough, congestion, ST x 2 days. Sick contacts include mother, daughter. Has used tylenol, motrin with slight relief. [place] Villalba [address], [place], [address], [facility] 02/20/2023 16:05:35 02/24/2023 text/html Pt was diagnosed positive Covid and strep throat on 02-20-2023.Says that she is feeling improved and with fewer symptoms.Here to have [facility] paperwork completed for work.First out of work on 02-19-23. Expects to return to work 02-27-23. CHENG STOCK NP [address] [place], [address], [facility] 02/24/2023 17:59:23 OBGyn Episode No OBEpisode recorded.
--- OUTSIDE RECORDS SUMMARY | 2024-06-07 14:37 | XMS_ITS | Encounter Summary ---
Author Organization [employer] [facility] Address [address] [facility] 7t [place] [address] Care Team Providers Care Cell Operator Name Role Phone Marzena Strong MD Primary Care Provide r Reason for Visit * Reason Onset Date Comments Nurse Triage 06/23/2023 Encounter Details Date Type Department Care Team (Late st Contact Info) Description 06/23/2023 Telephone [facility] MEDICINE [address] [place], [place] [phone] Marzena Strong MD [address] [place], [place] [phone] Nurse Triage Social History Tobacco Use Types Packs/Day Years Used Date Smoking Tobacco: Never Passive Smoke Exposure: Never Smokeless Tobacco: Never Alcohol Use Standard Drinks/Week Comments Not Currently 0 (1 standard drink = 0.6 oz pur e alcohol) Depression Answer Date Recorded Patient Health Questionnaire-9 Score 18 09/06/2022 Housing Stability Answer Date Recorded What is your housing situation today? I have erika serrano 01/27/[address] you li ve. Do you have problems with any of the following? None of the above 01/27/2023 Food Insecurity Answer Date Recorded Within the past 12 months, y ou worried that your food would run out before you got money to buy more: Never True 01/27/2023 Within the past 12 months,th e food you bought just didn't last and you didn't have enough money to get more: Never True Transportation Answer Date Recorded In the past 12 months, has l ack of transportation kept you from medical appts, meetings, work or from getting things needed for daily living? No 01/27/2023 Utilities Answer Date Recorded In the past 12 months, has t he electric, gas, oil or water company threatened to shut off services in your home? No 01/27/2023 Depression Answer Date Recorded Patient Health Questionnaire-2 Score 4 09/06/2022 Comments No Sex and Gender Information Value Date Recorded Sex Assigned at Female 02/11/2022 10:36 AM EDT Legal Sex Female 10:36 AM EDT Gender Identity Female 02/11/2022 10:36 AM EDT Sexual Orientation Straight 02/11/2022 10 :36 AM EDT documented as of this encounter Miscellaneous Notes * Telephone Encounter - Margoth Cummings RN - 06/23/2023 3:41 PM EDT Triage call with [place] ID [id number] Pt reports last night around 9pm Pt was walking on the side walk , became dizzy and fell. Pt fell forward onto face on cement. Pt reports a bump on forehead, scratches on nose and chin. Pt reports continues to have episodes of dizziness, headaches that are on the sides to top of head. Tylenol doesn't take away the headache. Pt is taking blood pressure medication and BP is 120/35 this morning. Pt is prescribed lisinopril-hydrochlorothiazide 10-125. Pt reports taking this medication for many years. Pt reports feeling tired and having body pain but Pt does have dx of fibromyalgia and arthritis. . Pt reports feeling dizzy today x2 but was able not to fall. Pt is advised to go to nearest ED for evaluation of this fall and BP measurement. Pt agrees with disposition and home care reviewed. Insurance is verified as active prior to booking. Protocol Used: Head Injury (Adult) Protocol-Based Disposition: Go to ED/UCC Now (or to Office with PCP Approval) Positive Triage Question: * Sounds like a serious injury to the triager * All higher-acuity triage questions were negative Care Advice Discussed: * Use a Cold Pack for Pain, Swelling, or Bruising * Reassurance and Education * Cleaning a Cut or Scrape * Antibiotic Ointment for a Cut or Scrape * Reasons To Call Back - Looks infected (pus, redness, increasing tenderness) - Doesn't heal within 10 days - You become worse * Telephone Encounter - Belen Fountaino - 06/23/2023 2:56 PM EDT Symptoms: Dizziness, Fall, Face Swelling Outcome: Schedule a same-day appointment or talk to a nurse or provider today Reason: pt stated have bruises in the face due to fall. The caller accepted this outcome Gabonese speaker documented in this encounter Plan of Treatment Upcoming Encounters Date Type Department Care Team (Late st Contact Info) Description 08/12/2024 9:00 AM EDT Office Visit [facility] MEDICINE [address] [place] [phone] Marzena Strong MD [address] [place] [address] documented as of this encounter Visit Diagnoses Not on filedocumented in this encounter Additional Health Concerns Assessment Noted Time PHQ-9 Depression Total Score: 18 023 11:12 AM EDT documented as of this encounter Care Teams Cell Operator Relationship Specialty Start Date End Date Marzena Strong MD [address] [place] [address] PCP - General Family Medicine 04/01/19 Ricarda Osullivan Medical InternBlood Bank Booking Clerk 04/02/24 documented as of this encounter
--- OUTSIDE RECORDS SUMMARY | 2024-06-07 14:37 | XMS_ITS | Encounter Summary ---
Author Organization [facility] Address [address] [facility] [address] [place] [address] Phone Care Team Providers Care Scrub Technician Name Role Phone Marzena Strong MD Primary Care Provide r Encounter Details Date Type Department Care Team (Late Contact Info) Description 02/19/2024 Documentation Only [facility] [address] [place] [address] [address]ime [address] [place] [phone] Social History Tobacco Use Types Packs/Day Years Used Date Smoking Tobacco: Never Assessed Comments Unknown Sex and Gender Information Value Date Recorded Sex Assigned at Not on file Legal Sex Female 4:02 PM EST Gender Identity Not on file Sexual Orientation Not on file documented as of this encounter Plan of Treatment Upcoming Encounters Date Type Department Care Team (Late Contact Info) Description 08/23/2024 2:00 PM EDT Office Visit [facility] [address] [place] [address] Davi Gooden MD [address] [place] [address] [place] [address] documented as of this encounter Visit Diagnoses Not on filedocumented in this encounter Care Teams Scrub Technician Relationship Specialty Start Date End Date Marzena Strong MD [address] [place] [phone] PCP - General Internal Medicine 04/08/24 documented as of this encounter
--- OUTSIDE RECORDS SUMMARY | 2024-06-07 14:37 | XMS_ITS | Encounter Summary ---
Author Organization [employer] Address [address] [facility] 7t [place] [address] Care Team Providers Care Cork Sorter Name Role Phone Marzena Strong MD Primary Care Provide r Reason for Visit * Reason Comments Med Refill Encounter Details Date Type Department Care Team ([facility] st Contact Info) Description 04/21/2024 Refill [facility] MEDICINE [address] [place], [place] [phone] Marzena Strong MD [address] [place], [place] [phone] Primary hypertension Social History Tobacco Use Types Packs/Day Years Used Date Smoking Tobacco: Every Day Cigarettes Passive Smoke Exposure: Current Smokeless Tobacco: Never Alcohol Use Standard Drinks/Week Comments Not Currently 0 (1 standard drink = 0.6 oz pur e alcohol) Depression Answer Date Recorded Patient Health Questionnaire-9 Score 17 03/01/2024 Patient Health Questionnaire-9 Score 17 03/01/2024 Last PHQ-9: Questionnaire Data Not on file 1 05/01/2023 Housing Stability Answer Date Recorded What is [...] Date Recorded Patient Health Questionnaire-2 Score 4 03/01/2024 Internet Access Answer Date Recorded Internet Access Q1 No 01/29/2024 Internet Access Q2 I do not want or need it 01/12 Comments No Sex and Gender Information Value Date Recorded Sex Assigned at Female 02/11/2022 10:36 AM EDT Legal Sex Female 10:36 AM EDT Gender Identity Female 02/11/2022 10:36 AM EDT Sexual Orientation Straight 02/11/2022 10 :36 AM EDT documented as of this encounter Plan of Treatment Upcoming Encounters Date Type Department Care Team (Late st Contact Info) Description 08/12/2024 9:00 AM EDT Office Visit [facility] MEDICINE [address] [place] [address] Marzena Strong MD [address] [place] [address] documented as of this encounter Visit Diagnoses Diagnosis Primary hypertension Unspecified essential hypertension documented in this encounter Additional Health Concerns Assessment Noted Time PHQ-9 Depression Total Score: 17 024 10:47 AM EST documented as of this encounter Care Teams Cork Sorter Relationship Specialty Start Date End Date Marzena Strong MD [address] [place] [address] PCP - General Family Medicine 04/01/19 Ricarda Osullivan Pattern Chain Maker SupervisorAutomatic Pilot Mechanic 04/02/24 documented as of this encounter
--- OUTSIDE RECORDS SUMMARY | 2024-06-07 14:37 | XMS_ITS | Encounter Summary ---
Author Organization [employer] Address [address] [place] [address] 7t [place] [address] Care Team Providers Care Manager Of Change Name Role Phone Marzena Strong MD Primary Care Provide r Reason for Referral * Imaging (Routine) - Closed Specialty Diagnoses / Procedures Referred By Contac t Referred To Contact Radiology Diagnoses Breast pain, left Procedures BI US Breast Complete Left Barbie Walker MD [address] [place] [address] Phone: tel: fax: [address] Phone: tel: fax: Referral ID Status Reason Start Date Expiration Date Visits Re quested Visits Authorized [id number] Closed 11/25/2022 11/25/2023 1 1 * Imaging (Routine) - Closed Specialty Diagnoses / Procedures Referred By Contpenelope t Referred To Contact Radiology Diagnoses Breast pain, left Procedures BI Mammogram Diagnostic Bilateral Barbie Walker MD [address] [place] [address] Phone: tel: fax: [address] Phone: tel: fax: Referral ID Status Reason Start Date Expiration Date Visits Re quested Visits Authorized [id number] Closed 11/25/2022 11/25/2023 1 1 Encounter Details Date Type Department Care Team ([facility] Contact Info) Description 11/25/2022 Orders Only [facility] MEDICINE [address] [place] [phone] Barbie Walker MD [address] [place] [phone] Breast pain, left (Primary Dx) Social History Tobacco Use Types Packs/Day Years Used Date Smoking Tobacco: Never Passive Smoke Exposure: Never Smokeless Tobacco: Never Alcohol Use Standard Drinks/Week Comments Not Currently 0 (1 standard drink = 0.6 oz pur e alcohol) Depression Answer Date Recorded Patient Health Questionnaire-9 Score 18 09/06/2022 Depression Answer Date Recorded Patient Health Questionnaire-2 Score 4 09/06/2022 Comments Unknown Sex and Gender Information Value Date Recorded Sex Assigned at Female 02/11/2022 10:36 AM EDT Legal Sex Female 10:36 AM EDT Gender Identity Female 02/11/2022 10:36 AM EDT Sexual Orientation Straight 02/11/2022 10 :36 AM EDT documented as of this encounter Plan of Treatment Upcoming Encounters Date Type Department Care Team (Late Contact Info) Description 08/12/2024 9:00 AM EDT Office Visit [facility] MEDICINE [address] [place] [phone] Marzena Strong MD [address] [place] [phone] Scheduled Orders Name Type Priority Associated Diagnoses Orde r Schedule BI Mammogram Diagnostic Bilateral Imaging Routine Breast pain, left Expected: 11/25/2022, Expires: 01/26/2024 BI US Breast Complete Left Imaging Routine Breast pain, left Expected: 11/25/2022, Expires: 01/26/2024 documented as of this encounter Visit Diagnoses Diagnosis Breast pain, left- Primary documented in this encounter Additional Health Concerns Assessment Noted Time PHQ-9 Depression Total Score: 18 023 11:12 AM EDT documented as of this encounter Care Teams Manager Of Change Relationship Specialty Start Date End Date Marzena Strong MD [address] [place] [address] PCP - General Family Medicine 04/01/19 Ricarda Osullivan Cotton ChopperGeropsychologist 04/02/24 documented as of this encounter
--- OUTSIDE RECORDS SUMMARY | 2024-06-07 14:37 | XMS_ITS | Encounter Summary ---
Author Organization [email or web address] Address [address] [facility] 7t [place] [address] Care Team Providers Care Card Mounter Name Role Phone Marzena Strong MD Primary Care Provide r Reason for Visit * Reason Comments Med Change Request Encounter Details Date Type Department Care Team ([facility] [place] st Contact Info) Description 11/19/2022 Refill [facility] MEDICINE [address] [place], [place] [phone] [facility] [address] [place] [address] Facial rash Social History Tobacco Use Types Packs/Day Years [...] suspected to have Coronavirus/COVID-19? No / Unsure 10/21/2022 10:30 AM EDT documented as of this encounter Miscellaneous Notes * Telephone Encounter - Juan David Roman MA - 11/19/2022 2:56 PM EDT Outreach to patient as request by Fe murcia to find out if patient has seen a councilor. Patient states she has never seen one but she does have an appointment coming up in the next couple of weeks, with GI documented in this encounter Plan of Treatment Upcoming Encounters Date Type Department Care Team (Late st Contact Info) Description 08/12/2024 9:00 AM EDT Office Visit [facility] MEDICINE [address] [place] [address] Marzena Strong MD [address] [place] [phone] documented as of this encounter Visit Diagnoses Diagnosis Facial rash documented in this encounter Additional Health Concerns Assessment Noted Time PHQ-9 Depression Total Score: 18 023 11:12 AM EDT documented as of this encounter Care Teams Card Mounter Relationship Specialty Start Date End Date Marzena Strong MD [address] [place] [address] PCP - General Family Medicine 04/01/19 Ricarda Osullivan Sheriff'S OfficerCity Distribution Clerk 04/02/24 documented as of this encounter
--- OUTSIDE RECORDS SUMMARY | 2024-06-07 14:37 | XMS_ITS | Clinical Summary ---
Author Organization [employer] Address [address] [place] [address] [address] [place] [address] Care Team Providers Care Home Health Administrator Name Role Phone Marzena Strong MD Primary Care Provide r Allergies No known active allergies Medications * This document contains information received from the source organization and may not represent a complete record from that organization. Blood Pressure kitIndications:Chantelle vated blood pressure reading 1 kit in the morning. 1 kit 07/17/19 23 Active cetirizine (ZyrTEC) 10 MG tablet Take 1 tablet (10 mg) by mouth in the morning. Prn. 30 tablet 2 10/02/19 23 Active GaviLAX 17 GM/SCOOP powder Take 17 g by mouth if needed each day (constipation). 01/15/20 24 Active Ventolin HFA 108 (90 Base) MCG/ACT inhaler INHALE 2 PUFFS EVERY 6 HOURS NEEDED FOR WHEEZING 18 g 1 01/28/20 24 Active sucralfate (Carafate) 1 g tabletIndications: Wernicke's encephalopathy Take 1 tablet (1 g) by mouth 4 times daily. For esophagitis 180 tablet 1 01/29/20 24 Active thiamine (Vitamin B-1) 100 MG tabletIndications: Wernicke's encephalopathy Take 1 tablet (100 mg) by mouth Once per day. 30 tablet 2 01/29/20 24 Active folic acid (Folvite) 1 MG tabletIndications: Wernicke's encephalopathy Take 1 tablet (1 mg) by mouth Once per day. 30 tablet 2 01/29/20 24 Active lidocaine (Lidoderm) 5 % patchIndications:C hronic bilateral low back pain, unspecified whether sciatica present Apply 1 patch topically Once per day. Remove & discard patch within 12 hours or as directed by MD. 30 patch 1 02/02/20 24 Active pyridoxine (Vitamin B-6) 50 MG tabletIndications: Wernicke's encephalopathy TAKE 1 TABLET BY MOUTH EVERY DAY 30 tablet 1 03/23/20 24 Active pantoprazole (Protonix) 40 MG EC tabletIndications: Esophagitis Take 1 tablet (40 mg) by mouth 2 times daily. Do not crush, chew, or split. 60 tablet 2 04/19/19 25 026 Active Active Problems Problem Noted Date Diagnosed Date Esophagitis 04/19/2024 Assessment & Plan (04/19/2024 1:35 PM EST): I advise patient to avoid NSAIDs, spicy and acid food, I advise to eat at the same time every day, I advise to elevate the head of the bed and take medications as prescribe Chronic pain of right knee 04/12/2024 Assessment & Plan (04/12/2024 4:18 PM EST): Patient will be contacted with XRAY results Hypokalemia 03/08/2024 Assessment & Plan (04/19/2024 1:35 PM EST): Resolved Assessment & Plan (04/12/2024 4:20 PM EST): I will monitor patient will be contacted with results Tachycardia 03/01/2024 Assessment & Plan (03/01/2024 12:21 PM EST): EKG done at office Sinus tachycardia HR 109 Precordial pain 03/01/2024 Costochondritis 03/01/2024 Assessment & Plan (03/01/2024 12:21 PM EST): Acetaminophen PRN Palpitations 03/01/2024 Assessment & Plan (03/01/2024 12:20 PM EST): Cardiology referral TSH re-check I advise to c/w proper hydration BHN called for management of anxiety Anxiety 03/01/2024 Assessment & Plan (03/01/2024 12:22 PM EST): BHN called Services will be initiated Assessment & Plan (03/01/2024 11:10 AM EST): PROGRESS NOTE: ID: Leah is a 28 y.o. Black or straight-identified cis-female with previous documented hx of Anxiety self reported history of Depression, Anxiety, and Bipolar Disorder MH services including OP Psychotherapy psychopharmacology who presents for Anxiety and Depression. She was accompanied by her partner Giovany Thornton. During IBH Consult Leah presenting with depressed mood, Tearful, hopelessness, irritable mood, loss of interests/pleasure , sense of isolation/loneliness , change in appetite or weight reduce appetite, changes in sleep difficulty falling asleep and difficulty staying asleep , psychomotor retardation, fatigue/loss of energy, worthlessness, difficulty concentrating and excessive worry/anxiety, difficulty controlling worry, anxiety/worry associated to restlessness and/or feeling keyed-up/On edge , easily fatigued , difficulty concentrating and/or mind going blank , irritability, muscle tension , and sleep disturbance difficulty falling asleep and difficulty staying asleep , and sense of dread ; for a period of 6-12 mo, for most or all symptoms in the context of PTN underwent weight loss surgery in April 2023. In November 2023, she was hospitalized due to a severe deficiency in vitamins and minerals, which led to symptoms such as memory loss and confusion. Additionally, her mother relocated to [place] just one week ago.. Due to the recent medical event, the PCP has decided not to initiate medication at this time, allowing the brain an opportunity to heal. However, the PCP has encouraged the patient to connect with mental health services to address her anxiety and depressive symptoms. PLAN: (check all that apply) New/Additional Services needed Off-site services for Behavioral Health Integration Plan External OP therapy referral and completion of [facility] Intake for OP Therapy Patient Self Plan Patient to utilize skills provided in intervention , Patient to reach out to [facility] team as needed, Patient to engage in OP BH therapy , and Patient to reach out to [facility] as needed Moderate episode of recurrent major depressive d isorder 03/01/2024 Wernicke's encephalopathy 01/29/2024 Assessment & Plan (04/12/2024 4:19 PM EST): Improving continue with hydration and vitamin supplementation Assessment & Plan (03/01/2024 12:19 PM EST): I will recheck her labs, patient will be contacted with results Neurology referral printed C/w vitamins supplementation Assessment & Plan (01/29/2024 12:08 PM EDT): Labs will be recheck I will refer her to neurology for f/u and re-evaluation Pseudotumor cerebri 01/29/2024 Assessment & Plan (01/29/2024 12:08 PM EDT): Neurology referral BLANQUITA (acute kidney injury) 01/29/2024 Other hydronephrosis 01/29/2024 Chronic bilateral low back pain 01/29/2024 Assessment & Plan (01/29/2024 12:09 PM EDT): For now acetaminophen PRN Suprapubic discomfort 01/29/2024 Assessment & Plan (01/29/2024 12:08 PM EDT): UA and culture ordered Generalized pain 11/07/2023 Nausea & vomiting 11/07/2023 Assessment & Plan (11/08/2023 11:37 AM EDT): F/u with bariatric team Small sips, small portions avoid NSAIDs and heavy food Zofran prescribed I increase her omeprazole dose If in spite of this interventions she is not tolerating PO I told her to got to emergency room for possible IV fluids Chronic fatigue 11/19/2022 Assessment & Plan (11/19/2022 12:18 PM EDT): Maintain hydration Patient camp head counselor about heathy diet and exercise It was advise to follow with rheumatology and pulmonology Dyspnea on exertion 11/19/2022 Other chest pain 11/19/2022 Iron deficiency 11/19/2022 Generalized abdominal pain 10/21/2022 Assessment & Plan (10/21/2022 11:12 AM EDT): I advise patient to avoid NSAIDs, spicy and acid food, I advise to eat at the same time every day, I advise to elevate the head of the bed and take medications as prescribe Encounter for prescription for depo-Provera 10/12 Assessment & Plan (10/21/2022 11:14 AM EDT): BHCG done yesterday (10/20/22) in the ED and as negative Depo will be initiated today then patient will like to transition to nexplanon (patient has being on both methods before side effects where reviewed again with her) Health care maintenance 10/21/2022 Assessment & Plan (12/31/2022 3:32 PM EDT): -flu vaccine today -hep B not immune from recent labs-pt to start series today Lung nodules 10/21/2022 Assessment & Plan (10/21/2022 11:14 AM EDT): CT of the chest will be repeated again in 3 months Pulmonary referral HTN (hypertension) 10/01/2022 Assessment & Plan (01/29/2024 12:09 PM EDT): Stable c/w same medication and interventions Assessment & Plan (11/08/2023 11:34 AM EDT): Today elevated she did not took her medication for blood pressure, I advise to take it every day Urinary frequency 09/06/2022 Assessment & Plan (09/06/2022 11:57 AM EDT): She was recently seen at [facility] we are waiting for urine culture Rheumatoid factor positive 09/04/2022 Rheumatoid arthritis of elbow 09/04/2022 Scleral icterus 09/04/2022 Missed period 09/04/2022 Irregular periods 09/04/2022 Insomnia 09/04/2022 Numbness of hand 09/04/2022 Hand pain 09/04/2022 H. pylori infection 09/04/2022 Foot pain 09/04/2022 Heartburn 07/16/2022 Myofascial pain 07/16/2022 Polyarthropathy 07/16/2022 Polymyalgia 07/16/2022 Class 3 severe obesity due t o excess calories without serious comorbidity with body mass index (BMI) of 45.0 to 49.9 in adult 06/27/2022 Assessment & Plan (09/06/2022 11:55 AM EDT): Today extensive discussion was done about life style modifications I advise healthy diet (low calorie) and cardiovascular exercise referral for bariatric procedure done Seropositive rheumatoid arthritis 06/27/2022 Assessment & Plan (12/31/2022 3:31 PM EDT): Pt w hx of RA from labs in 06/2022 ISAMAR Neg and RF is + 29 , 12/23/2022 ESR and CRP elevated Here no major findings on exam Symptoms are consistent with her RA including rash and joint pain ,fatigue Pt not taking hydroxychloroquine for weeks -I called her px today and I was told pt refilled med on 12/17/2022 and has another 5 refills -pt denies having med at home -I advised pt to check again at her house for medication and if not able to find to come to pharmacy -they will help pt to get med to resume tx -continue tylenol prn for mild and NSAIDS prn for mod pain -no active swelling in joints will hold on PO steroids -last dose received 1 week ago per pt -advised to continue care w publication director as soon as possible and w PCP in 3 mo -alarm signs and symptoms discussed w pt today Assessment & Plan (09/06/2022 11:56 AM EDT): Patient referred before to rheumatology but patient reports she was told she needed a new because provider was leaving practice Gastritis 06/27/2022 Fibromyalgia 06/27/2022 Encounters * This document contains information received from the source organization and may not represent a complete record from that organization. Date Type Department Care Team Description 04/28/2024 10:00 AM EST Office Visit [facility] [address] [place] [address] Mirna Farmer MD Anxiety and depression (Primary Dx); Seropositive rheumatoid arthritis ([facility]); Fibromyalgia; Polymyalgia ([facility]/HCC) 04/28/2024 Travel 04/27/2024 Telephone [facility] [address] [place] [address] Marzena Strong MD Chart Prep 04/21/2024 Refill [facility] [address] [place] [phone] Marzena Strong MD Primary hypertension [address] [address] Marzena Strong MD Results [address] [address] Marzena Strong MD 04/19/2024 1:00 PM EST Office Visit [address] [address] Marzena Strong MD Esophagitis (Primary Dx); Hypokalemia 04/19/2024 Orders Only [address] [address] Marzena Strong MD Chronic pain of right knee (Primary Dx) 04/19/2024 Travel 04/16/2024 Patient Outreach [address] [address] Marzena Strong MD Pre-visit Planning ([facility] screening completed on 01/29/2024) 04/12/2024 11:00 AM EST Office Visit [address] [address] Marzena Strong MD Chronic pain of right knee (Primary Dx); Wernicke's encephalopathy; Hypokalemia 04/12/[address] [address] Paola Milligan, RN Results 04/12/2024 Travel 04/09/2024 Telephone [facility] [address] [place] [address] Joe Sousa MA Chart Prep 04/05/2024 Patient Outreach [facility] [address] [place] [address] Marzena Strong MD Transitions of Care (ED Visit) 04/02/2024 Telephone [facility] [address] [place] [address] Marzena Strong MD Care Coordination ([facility] BH) 03/31/2024 Patient Outreach [facility] [address] [place] [phone] Marzena Strong MD Pre-visit Planning (SDOH screening completed on 01/29/2024) 03/31/2024 Patient Outreach [facility] [address] [place] [address] Marzena Strong MD Transition Of Care (Tcm) (HDF scheduled, SDOH was completed on 01/29/2024) 03/26/2024 Patient Outreach [facility] [address] [place] [phone] Marzena Strong MD Transition Of Care (Tcm) 03/22/2024 Refill [facility] [address] [place] [phone] Marzena Strong MD Wernicke's encephalopathy 03/09/2024 Orders Only [facility] [address] [place] [phone] Marzena Strong MD Hypokalemia (Primary Dx) 03/08/2024 Orders Only [facility] [address] [place] [phone] Marzena Strong MD 03/08/2024 Orders Only [facility] [address] [place] [phone] Marzena Strong MD Hypokalemia (Primary Dx) 03/08/2024 Refill [facility] [address] [place] [phone] Marzena Strong MD Hypokalemia 03/08/2024 Orders Only GENERIC EXTERNAL DATA DEPARTMENT Provider, Generic External Data from Last 3 Months Immunizations Name Administration Dates Next Due Hep B, adult 12/30/2022 Influenza injectable quadrivalent preservative f ree 12/30/2022,02/15/2021 Influenza, IIV3, injectable 12/30/2022, Family History Medical History Relation Name Comments Hypertension Father Diabetes type II Mother Hypertension Mother Relation Name Status Comments Father Mother Social History Tobacco Use Types Packs/Day Years Used Date Smoking Tobacco: Former Cigarettes Q uit: 2023 Passive Smoke Exposure: Current Smokeless Tobacco: Never Tobacco Cessation:Counseling Given: Not Answered Comments:Has quit smoking 1 year ago. Alcohol Use Standard Drinks/Week Comments Not Currently 0 (1 standard drink = 0.6 oz pur e alcohol) Depression Answer Date Recorded Patient Health Questionnaire-9 Score 20 04/28/2024 Patient Health Questionnaire-9 Score 20 04/28/2024 Last PHQ-9: Questionnaire Data Not on file 0 04/28/2024 Housing Stability Answer Date Recorded What is [...] Date Recorded Patient Health Questionnaire-2 Score 4 04/28/2024 Internet Access Answer Date Recorded Internet Access Q1 No 01/29/2024 Internet Access Q2 I do not want or need it 01/12 Comments No Sex and Gender Information Value Date Recorded Sex Assigned at Female 02/11/2022 10:36 AM EDT Legal Sex Female 10:36 AM EDT Gender Identity Female 02/11/2022 10:36 AM EDT Sexual Orientation Straight 02/11/2022 10 :36 AM EDT Last Filed Vital Signs Vital Sign Reading Time Taken Comments Blood Pressure 134/81 04/28/2024 10:29 AM EST Pulse 77 04/28/2024 10:29 AM EST Temperature 36.5 ??C (97.7 ??F) 04/28/2024 10:[address] Respiratory Rate 20 04/28/2024 10:29 AM EST Oxygen Saturation 99% 04/28/2024 10:29 AM EST Inhaled Oxygen Concentration - - Weight 59 kg (130 lb) 04/28/2024 10:29 AM EST Height 154.9 cm (5' 1 ) 04/28/2024 10:29 AM EST Body Mass Index 24.56 04/28/2024 10:29 AM EST Plan of Treatment Upcoming Encounters Date Type Department Care Team (Late st Contact Info) Description 08/12/2024 9:00 AM EDT Office Visit [facility] [address] [place] [address] Marzena Strong MD [address] [place] [address] Health Maintenance Due Date Last Done Comments Family Planning (PISQ) 2008 DTaP/Tdap/Td Vaccines (1 - Tdap) 2012 Hepatitis B Vaccines (2 of 3 - 19+ 3-dose series) 01/27/2023 12/30/2022 HPV/Cotest 2023 COVID-19 Vaccine (1 - season) 2023 Influenza Vaccine (#1) 2023 , 12/30/2022, 02/15/2021, Additional history exists Cervical Cancer Screening 01/27/2024 Pap Smear 01/27/2024 01/26/2021 Depression Monitoring (PHQ-9) 10/26/2024 04/28/2024, 04/28/2024 Alcohol/Substance Use Screening 01/28/2025 01/29/2024 SDOH Screening 01/28/2025 01/29/2024 Depression Screening 04/28/2025 04/28/2024, 04/28/19 25 Tobacco Screening 04/28/2025 04/28/2024 Lipid Panel 10/23/2027 10/22/2022, 06/13, 01/26/2021, Additional history exists Zoster Vaccines (1 of 2) 2043 RSV Patients and Patients Aged 60 years or older (1 - 1-dose 75+ series) 2068 HIV Screening Completed 07/01/2022, 04/01/2019 Hepatitis C Screening Completed 12/23/2022 , 07/01/2022, 07/27/2020, Additional history exists HIB Vaccines Aged Out No longer eligi ble based on patient's age to complete this topic HPV Vaccines Aged Out No longer eligi ble based on patient's age to complete this topic Hepatitis A Vaccines Aged Out No long er eligible based on patient's age to complete this topic IPV Vaccines Aged Out No longer eligi ble based on patient's age to complete this topic Meningococcal Vaccine Aged Out No prabhjot guicho eligible based on patient's age to complete this topic Pneumococcal Vaccine: Pediatrics (0 to 5 Years) and At-Risk Patients (6 to 49) Years) Aged Out No longer eligible based on patient's age to complete this topic RSV under 20 months Aged Out No longe r eligible based on patient's age to complete this topic Rotavirus Vaccines Aged Out No longer eligible based on patient's age to complete this topic Procedures Procedure Name Priority Date/Time Associated Diagnosis Comments XR KNEE 4+ VIEWS RIGHT Routine 04/19/2024 1:26 PM EST Chronic pain of right knee POTASSIUM Routine 04/12/2024 11:40 AM EST Hypokalemia BASIC METABOLIC PANEL Routine 04/12/2024 11:40 AM EST Wernicke's encephalopathy BASIC METABOLIC PANEL Routine 03/26/2024 9:40 AM EST Hypokalemia BASIC METABOLIC PANEL Routine 03/09/2024 11:55 AM EST Hypokalemia URINALYSIS WITH REFLEX MICROSCOPIC Routine 03/08/2024 11:59 PM EST XR CHEST 1 VIEW Routine 03/08/2024 11:45 PM EST HIGH SENSITIVITY TROPONIN I Routine 03/08/2024 10:19 PM EST POTASSIUM Routine 03/08/2024 10:19 PM EST HCG, TOTAL, QN Routine 03/08/2024 4:08 PM EST HIGH SENSITIVITY TROPONIN I Routine 03/08/2024 4:08 PM EST MAGNESIUM Routine 03/08/2024 4:08 PM EST COMPREHENSIVE METABOLIC PANEL Routine 03/08/2024 4:08 PM EST CBC WITH AUTO DIFFERENTIAL Routine 03/08/2024 4:08 PM EST SED RATE BY MODIFIED WESTERGREN Routine 03/08/2024 9:30 AM EST C-REACTIVE PROTEIN Routine 03/08/2024 9: 30 AM EST COMPREHENSIVE METABOLIC PANEL Routine 03/08/2024 9:30 AM EST CBC WITH AUTO DIFFERENTIAL Routine 03/08/2024 9:30 AM EST TSH W/REFLEX TO FT4 Routine 03/08/2024 9 :30 AM EST Tachycardia Palpitations PHOSPHATE ( PHOSPHORUS) Routine 03/08/2024 9:30 AM EST Wernicke's encephalopathy MAGNESIUM Routine 03/08/2024 9:30 AM EST Wernicke's encephalopathy VITAMIN B6 Routine 03/08/2024 9:30 AM EST Wernicke's encephalopathy VITAMIN B12/FOLATE, SERUM PANEL Routine 03/08/2024 9:30 AM EST Wernicke's encephalopathy HEPATITIS PANEL, GENERAL Routine 12/23/2022 1:58 PM EDT LIPID PANEL, STANDARD Routine 10/22/2022 9:33 AM EDT HIV 1/2 ANTIGEN/ANTIBODY, FOURTH GENERATION W/RFL Routine 07/01/2022 9:17 AM EDT Pelvic pain THINPREP PAP Routine 01/26/2021 12:00 AM EDT from Last 3 Months or Most Recently Relevant to Health Maintenance Results * XR Knee 4+ Views Right (04/19/2024 1:26 PM EST) Anatomical Region Laterality Modality Lower Extremities, Knee Right Radiogra phic Imaging 04/19/2024 1:26 PM EST Narrative 04/19/2024 2:47 PM EST ?[facility] ?[address] ?[place] [address] ?XRay Report ? Signed ? Patient: Leah Bernal ?MR#: [id number] ?? [id number] ? : 1995 ?Acct:[id number] ? Age/Sex: 28 / F ?ADM Date: 04/19/24 ? Loc: HO.HHCX ? Attending Dr: Marzena Main MD ? Ordering Physician: Marzena Strong MD ?? Date of Service: 04/19/24 ?? Procedure(s): XR knee RT 4V ?? Accession Number(s): [id number] ? cc: Marzena Strong MD ? EXAMINATION: ?? XR KNEE, RIGHT ? CLINICAL INFORMATION: ?? pain ? COMPARISON: ?? None available. ? TECHNIQUE: ?? Four views of the right knee. ? FINDINGS: ?? No fracture or joint effusion. Alignment is anatomic. Joint spaces are ?? maintained. No abnormal soft tissue calcification. ? XR/XR knee RT 4V ?? IMPRESSION: ?? Unremarkable right knee. ? Electronically signed by: ??Mark Vasquez MD ??04/19/2024 02:44 PM EST RP ? Dictated By: ?Christina,Mark S MD ? Signed By: ?<Electronically signed by Mark Vasquez MD in OV> ?04/19/24 1444 ? DD/ 1326 ? TD/TT: 04/19/24 1358 ? Focused Factory Manager: DG ? Procedure Note [place], Image - 04/19/2024 [facility] [address] [place] [address] XRay Report Signed Patient: Leah BernalMR#: [id number] : 1995Acct:[id number] Age/Sex: 28 / FADM Date: 04/19/24 Loc: .HHCX Attending Dr: Marzena Main MD Ordering Physician: Marzena Strong MD Date of Service: 04/19/24 Procedure(s): XR knee RT 4V Accession Number(s): [id number] cc: Marzena Strong MD EXAMINATION: XR KNEE, RIGHT CLINICAL INFORMATION: pain COMPARISON: None available. TECHNIQUE: Four views of the right knee. FINDINGS: No fracture or joint effusion. Alignment is anatomic. Joint spaces are maintained. No abnormal soft tissue calcification. XR/XR knee RT 4V IMPRESSION: Unremarkable right knee. Electronically signed by: Mark Vasquez MD 04/19/2024 02:44 PM EST Dictated By: Mark Vasquez MD Signed By: <Electronically signed by Mark Vasquez MD in OV> 04/19/24 1444 DD/ 1326 TD/TT: 04/19/24 1358 Focused Factory Manager: MSM us Marzena Main MD IMG XR PROCEDURES Fin al Result * Potassium (04/12/2024 11:40 AM EST) Only the most recent of2 resultswithin the time period is included. Potassium 3.9 3.3 - 5.1 mmol/L [facility] Blood Venous blood specimen / Unknown 04/12/2024 11:40 AM EST 04/12/2024 1:11 PM EST us Marzena Main MD LAB BLOOD ORDERABLES Final Result Performing Organization Address City/[facility]/ZIP Co de Phone Number [facility] [address] [place] [address] [phone] * (ABNORMAL) Basic Metabolic Panel (04/12/2024 11:40 AM EST) Only the most recent of3 resultswithin the time period is included. Sodium 141 135 - 145 mmol/L [facility] Potassium 3.9 3.3 - 5.1 mmol/L [facility] Chloride 110(H) 96 - 108 mmol/L [facility] Carbon Dioxide 23 22 - 29 mmol/L [facility] Anion Gap 12 12 - 20 [facility] Urea Nitrogen (BUN) 6(L) 9 - 16 mg/dL [facility] Creatinine, Serum 0.72 0.5 - 1.4 mg/dL [facility] Estimated Glomerular Filt Rate >60 [facility] Comment:Chronic Kidney Disea se: Estimated GFR < 60 mL/min/[id number] Kidney Disease: Estimated GFR < 15 mL/min/1.73m2 Glucose 94 60 - 115 mg/dL [facility] Calcium 9.6 8.4 - 10.2 mg/dL [facility] Blood Venous blood specimen / Unknown 04/12/2024 11:40 AM EST 04/12/2024 1:18 PM EST us Marzena Main MD LAB BLOOD ORDERABLES Final Result Performing Organization Address City/[facility]/ZIP Co de Phone Number [facility] [address] [place] [address] [phone] * Urinalysis w/reflex microscopic (03/08/2024 11:59 PM EST) Color Urine Dark Yellow [facility] Appearance Urine Cloudy [facility] PH 6.0 5.0 - 9.0 [facility] Glucose Urine UA Negative Negative mg/dL [facility] Urine Blood Negative Negative [facility] Specific [place] - Urine 1.020 1.005 - 1.025 [facility] Urine Protein Trace Neg-Trace mg/dL [facility] Urine Ketones 15 Negative mg/dL [facility] Nitrite Urine Negative Negative [facility] Leukocyte Esterase Urine Negative Negative [facility] 03/08/2024 11:5 9 PM EST 03/09/2024 12:01 AM EST Narrative [facility] - 03/09/2024 12:15 AM EST [id number], Clean Catch us Generic External Data Provider LAB URINE ORDERAB LES Final Result Performing Organization Address [facility] Co de Phone Number [facility] [address] [place] [address] [phone] * XR Chest 1 View (03/08/2024 11:45 PM EST) Anatomical Region Laterality Modality Chest Radiographic Paula ging 03/08/2024 11:4 5 PM EST Narrative 03/09/2024 12:11 AM EST ? [facility] ?[address] ?[place] [place] [id number] ?XRay Report ? Signed ? Patient: Norberto Hall,Leah ?MR#: [id number] ?? [id number] ? : 1995 ?Acct:[id number] ? Age/Sex: 28 / F ?ADM Date: 11/25/24 ? Loc: HO.ED ? Attending Dr: ? Ordering Physician: Pj Arizmendi ?? Date of Service: 03/08/24 ?? Procedure(s): XR chest 1V ?? Accession Number(s): [id number] ? cc: Pj Arizmendi; Marzena Strong MD ? EXAMINATION: ?? XR CHEST ? CLINICAL INFORMATION: ?? Pneumonia? COMPARISON: ?? June 24, 2023. ? TECHNIQUE: ?? Frontal view of the chest was obtained. ? FINDINGS: ?? No significant abnormality is noted involving the heart, lungs, ?? mediastinum, bony thorax or soft tissues. ? XR/XR chest 1V ?? IMPRESSION: ?? Unremarkable examination. ? Electronically signed by: ??Alexandre Mccord MD ??03/09/2024 12:08 AM EST RP ? Dictated By: ?Alexandre Mccord MD ? Signed By: ?<Electronically signed by Alexandre Mccord MD in OV> ?03/09/24 0008 ? DD/ 44 ? TD/TT: 03/08/242344 ? Focused Factory Manager: ? Procedure Note Bienvenido, Image - 03/09/2024 [place] [address] XRay Report Signed Patient: Leah BernalMR#: [id number] : 1995Acct:[id number] Age/Sex: 28 / FADM Date: 03/08/24 Loc: HO.ED Attending Dr: Ordering Physician: Pj Arizmendi Date of Service: 03/08/24 Procedure(s): XR chest 1V Accession Number(s): [id number] cc: Pj Arizmendi; Marzena Strong MD EXAMINATION: XR CHEST CLINICAL INFORMATION: Pneumonia? COMPARISON: June 24, 2023. TECHNIQUE: Frontal view of the chest was obtained. FINDINGS: No significant abnormality is noted involving the heart, lungs, mediastinum, bony thorax or soft tissues. XR/XR chest 1V IMPRESSION: Unremarkable examination. Electronically signed by: Alexandre Mccord MD 03/09/2024 12:08 AM EST Dictated By: Alexandre Mccord MD Signed By: <Electronically signed by Alexandre Mccord MD in OV> 03/09/24 0008 DD/ 44 TD/TT: 03/08/242344 Focused Factory Manager: [facility] External Provider IMG XR PROCEDURES Edited Result - Final * High Sensitivity Troponin I (03/08/2024 10:19 PM EST) Only the most recent of2 resultswithin the time period is included. [facility] TROPONIN I HIGH SENSITIVITY 9.4 <3.5 - 17.0 ng/L [facility] Comment:The Friedman high sens itivity Troponin-I results should beused in conjunction with other diagnostic information suchas ECG, clinical observations and information, and patientsymptoms to aid in the diagnosis of SD. 03/08/2024 10:1 9 PM EST 03/08/2024 11:40 PM EST Generic External Data Provider LAB BLOOD ORDERAB LES Final Result [facility] [address] [place] [phone] * (ABNORMAL) CBC auto differential (03/08/2024 4:08 PM EST) Only the most recent of2 resultswithin the time period is included. [facility] White Blood Count 8.7 4.8 - 10.8 X10*3/uL [facility] Red Blood Count 5.29 4.20 - 5.50 X10*6/uL [facility] Hemoglobin 16.5(H) 12.0 - 16.0 g/dl [facility] Hematocrit 45.2 37.0 - 47.0 % [facility] Mean Corpuscular Volume 85.4 80.0 - 98.0 fL [facility] Mean Corpuscular Hemoglobin 31.2 27.0 - 33.0 pg [facility] Mean Corpuscular HGB Conc 36.5(H) 31.0 - 35.0 g/dl [facility] Red Cell Distribution Width 11.9 11.0 - 16.0 % [facility] Platelet Count 294 160 - 400 X10*3/uL [facility] Mean Platelet Volume 10.6 9.4 - 12.3 fL [facility] Neutrophils Percent Auto 42.0(L) 45 - 73 % [facility] Imm Gran Pct Auto 0.3 0.0 - 0.4 % [facility] Lymphocytes Percent Auto 47.0(H) 20 - 40 % [facility] Monocytes Percent Auto 8.2 2 - 11 % [facility] Eosinophils Percent Auto 1.7 0 - 4 % [facility] Basophils Percent Auto 0.8 0 - 2 % [facility] NRBC Pct Auto 0.0 0.0 - 0.2 /100WBC [facility] Neutrophils Absolute Auto 3.7 2.0 - 8.3 x10*3/uL [facility] Imm Gran Abs Auto 0.03 0.00 - 0.03 X10*3/uL [facility] Lymphocytes Absolute Auto 4.1 1.2 - 4.9 X10*3/uL [facility] Monocytes Absolute Auto 0.7 0.1 - 1.2 X10*3/uL [facility] Eosinophils Absolute Auto 0.2 0.0 - 0.4 X10*3/uL [facility] Basophils Absolute Auto 0.1 0.0 - 0.2 X10*3/uL [facility] NRBC Abs Auto 0.000 0.0 - 0.012 X10*3/uL [facility] 03/08/2024 4:08 PM EST 03/08/2024 4:12 PM EST us Generic External Data Provider LAB BLOOD ORDERAB LES Final Result [facility] [address] [place] [phone] * hCG, Total, Quantitative (03/08/2024 4:08 PM EST) HCG Quantitative <2 mIU/mL [facility] Comment:Weeks post LMP Appro ximate hCG(Last Menstrual Period) Range (mIU/ml)3 - 4 weeks 9 - 1304 - 5 weeks 75 - 2,6005 - 6 weeks 850 - 20,8006 - 7 weeks 4000 - 100,2007 - 12 weeks 11,500 - 289,44717 - 16 weeks 18,300 - 137,16678 - 29 weeks (2nd trimester) 1,400 - 53,75534 - 41 weeks (3rd trimester) 940 - 60,000The Friedman B- hCG assay is used for the early detection ofpregnancy; it cannot be used to diagnose any conditionunrelated to . If a B-hCG level is not supportedby the clinical evidence, results should be confirmed by analternative method (qualitative urine hCG, for example). 03/08/2024 4:08 PM EST 03/08/2024 4:12 PM EST Generic External Data Provider LAB BLOOD ORDERAB LES Final Result Performing Organization Address [facility] Co de Phone Number [facility] [address] [place] [phone] * Magnesium (03/08/2024 4:08 PM EST) Only the most recent of2 resultswithin the time period is included. Magnesium 2.1 1.6 - 2.6 mg/dL [facility] 03/08/2024 4:08 PM EST 03/08/2024 4:12 PM EST Generic External Data Provider LAB BLOOD ORDERAB LES Final Result Performing Organization Address [facility] Co de Phone Number [facility] [address] [place] [phone] * (ABNORMAL) Comprehensive Metabolic Panel (03/08/2024 4:08 PM EST) Only the most recent of2 resultswithin the time period is included. Sodium 136 135 - 145 mmol/L [facility] Potassium 2.4(LL) 3.3 - 5.1 mmol/L [facility] Comment:Critical value for t est(s): POTS Results called to and readback by: CHRISTINE Person calling: CHEMO Date: 03/08/24Time: 1632 Chloride 99 96 - 108 mmol/L [facility] Carbon Dioxide 26 22 - 29 mmol/L [facility] Anion Gap 13 12 - 20 [facility] Urea Nitrogen (BUN) 9 9 - 16 mg/dL [facility] Creatinine, Serum 0.77 0.5 - 1.4 mg/dL [facility] Creatinine Clr Calc Pharmacy 89.2 [facility] Comment:Provided height and weight: 154.94 cm,60.5 kg.eGFR (calculated from the MDRD study equation) and eCrCl(calculated from the Cockcroft-Gault equation) are based ondifferent parameters and may not yield comparable results.If eCrCl result is absurd, please check patient'sheight/weight. Estimated Glomerular Filt Rate >60 [facility] Comment:Chronic Kidney Disea se: Estimated GFR < 60 mL/min/1.78e4Nninmh Kidney Disease: Estimated GFR < 15 mL/min/1.73m2 Glucose 129(H) 60 - 115 mg/dL [facility] Calcium 10.2 8.4 - 10.2 mg/dL [facility] Bilirubin, Total 2.1(H) 0.0 - 1.0 mg/dL [facility] Aspartate Amino Transferase 62(H) 5 - 31 U/L [facility] Alanine Aminotransferase 85(H) 0 - 31 U/L [facility] Total Protein 7.6 6.5 - 8.0 g/dL [facility] Albumin Level 4.7 3.5 - 5.0 g/dL [facility] Alkaline Phosphatase 70 39 - 117 U/L [facility] 03/08/2024 4:08 PM EST 03/08/2024 4:12 PM EST us Generic External Data Provider LAB BLOOD ORDERAB LES Final Result [facility] [address] [place] [phone] * Vitamin B12/Folate, Serum Panel (03/08/2024 9:30 AM EST) Vitamin B12 498 200 - 900 pg/mL [facility] Comment:NORMAL 200-900 PG/ML INDETERMINATE 160-199 PG/ML DEFICIENT < 160 PG/ML Folate 15.2 > or = 4.0 ng/mL [facility] Comment:Reference Values:> o r = 4.0 ng/mL< 4.0 ng/mL suggests folate deficiency Methotrexate, aminopterin and folinic acid(leucovorin) are chemotherapeutic agents whose molecularstructures are similar to folate; therefore, the Architectfolate assay cannot be used for patients using these drugs. Blood Venous blood specimen / Unknown 03/08/2024 9:30 AM EST 03/08/2024 11:17 AM EST Marzena Main MD LAB BLOOD ORDERABLES Final Result Performing Organization Address [facility] Co de Phone Number [facility] [address] [place] [phone] * TSH W/Reflex to FT4 (03/08/2024 9:30 AM EST) Pathologist [facility] TSH reflex Free T4 1.33 0.32 - 4.0 uIU/mL [facility] Blood Venous blood specimen / Unknown 03/08/2024 9:30 AM EST 03/08/2024 11:17 AM EST Marzena Main MD LAB BLOOD ORDERABLES Final Result Performing Organization Address [facility] Co de Phone Number [facility] [address] [place] [phone] * Sed Rate by Modified Seanren (03/08/2024 9:30 AM EST) Pathologist [facility] Erythrocyte Sedimentation Rate 5 0 - 20 MM/HR [facility] Comment:Patients with polycy themia and many hemoglobin abnormalitiesmay have depressed sed rates whereas patients with anemiamay have elevated sed rates. 03/08/2024 9:30 AM EST 03/08/2024 11:12 AM EST us Generic External Data Provider LAB BLOOD ORDERAB LES Final Result Performing Organization Address [facility] Co de Phone Number [facility] [address] [place] [phone] * C-reactive Protein (03/08/2024 9:30 AM EST) C Reactive Protein 0.31 < or = 0.50 mg/dL [facility] 03/08/2024 9:30 AM EST 03/08/2024 11:17 AM EST us Generic External Data Provider LAB BLOOD ORDERAB LES Final Result Performing Organization Address [facility] [place] Number [facility] [address] [place] [phone] * (ABNORMAL) Vitamin B6 (03/08/2024 9:30 AM EST) Vitamin B6 109.6(A ) 2.1 - 21.7 ng/mL [facility] Comment:Vitamin supplementat ion within 24 hours prior toblood draw may affect the accuracy of the results.This test was developed and its analytical performancecharacteristics have been determined by [employer] [place], [place]. It hasnot been cleared or approved by the U.S. Food and DrugAdministration. This assay has been validated pursuantto the CLIA regulations and is used for clinicalpurposes.THIS TEST WAS PERFORMED AT:[employer] [place] [address]DMCXYVMSAPNA PELAYO MD,PHD Blood Venous blood specimen / Unknown 03/08/2024 9:30 AM EST 03/08/2024 11:17 AM EST us Marzena Main MD LAB BLOOD ORDERABLES Final Result Performing Organization Address [facility] Co de Phone Number [facility] [address] [place] [phone] * Phosphate (As Phosphorus) (03/08/2024 9:30 AM EST) Pathologist [facility] Phosphorus 4.0 2.7 - 4.5 mg/dL [facility] Blood Venous blood specimen / Unknown 03/08/2024 9:30 AM EST 03/08/2024 11:17 AM EST Marzena Main MD LAB BLOOD ORDERABLES Final Result [facility] [address] [place] [phone] * Hepatitis Panel, General (12/23/2022 1:58 PM EDT) [facility] Hepatitis A IgM Nonreactive Nonreactive [facility] Comment:IgM antibodies to FRANCISCO V not detected; does not exclude earlyacute or recovered HAV infection. ~Hepatitis B Surface Antibody NONREACTIVE Nonreactive [facility] Comment:Nonreactive: < 8.00 mIU/mL Hepatitis B Core Antibody Nonreactive Nonreactive [facility] Hepatitis C Antibody Nonreactive Nonreactive [facility] Comment:Antibodies to HCV no t detected; does not exclude early acuteHCV infection. Hepatitis B Surface Ag Negative Negative [facility] 12/23/2022 1:58 PM EDT 12/23/2022 1:58 PM EDT [facility] External Provider LAB BLO OD ORDERABLES Final Result [facility] [address] [place] [phone] * Lipid Panel, Standard (10/22/2022 9:33 AM EDT) Pathologist [facility] Triglycerides 100 mg/dL [facility] Comment:Desirable Triglyceri de: less than 150 mg/dLBorderline High Triglyceride 150-199 mg/dLHigh Triglyceride: 200-499 mg/dLVery High Triglyceride: greater than or equal to 5OO mg/dL Cholesterol 185 mg/dL [facility] Comment:Desirable Cholestero l: less than 200 mg/dLBorderline High Cholesterol: 200-239 mg/dLHigh Cholesterol: greater than 239 mg/dL LDL Cholesterol Calculated 120 mg/dl [facility] Comment:Desirable LDL: less than 100 mg/dLNear Optimal/Above Optimal LDL: 110- 129 mg/dLBorderline High LDL: 130-159 mg/dLHigh LDL: 160-189 mg/dLVery High LDL: greater than or equal to 190 mg/dL HDL Cholesterol 45 mg/dL [facility] Comment:Desirable HDL: great er than 40 mg/dL Note: This HDL assay may give artificially low results in patients with liver disease. 10/22/2022 9:33 AM EDT 10/22/2022 9:33 AM EDT [facility] External Provider LAB BLO OD ORDERABLES Final Result [facility] [address] [place] [phone] * HIV-1/2 Antigen and Antibodies, Fourth Generation, with Reflexes (07/01/2022 9:17 AM EDT) Pathologist [facility] HIV Antigen/Antibody, 4th Generation NON-REAC TIVE NON-REAC TIVE [facility] Comment: HIV-1 antigen and HIV-1/HIV-2 antibodies were not detected. There is no laboratory evidence of HIV infection. PLEASE NOTE: This information has been disclosed to you from records whose confidentiality may be protected by state law. ??If your state requires such protection, then the state law prohibits you from making any further disclosure of the information without the specific written consent of the person to whom it pertains, or as otherwise permitted by law. A general authorization for the release of medical or other information is NOT sufficient for this purpose. ?? For additional information please refer to http://education.StrongLoop/faq/UYK493 (This link is being provided for informational/ educational purposes only.) The performance of this assay has not been clinically validated in patients less than 2 years old. Blood Venous blood specimen / Unknown 07/01/2022 9:17 AM EDT 07/01/2022 9:18 AM EDT Narrative [facility] - 07/03/2022 2:25 PM EDT FASTING:YES FASTING: YES us Kimberlyn Acevedo DO LAB BLOOD ORDERABLES Final R esult Performing Organization Address [facility] de Phone Number [address], [place] [address] [facility] [address] [place] [phone] * THINPREP PAP (01/26/2021 12:00 AM EDT) Clinical Information: None given [facility] COMMENT SEE COMMENT [facility] Comment: EXPLANATORY NOTE: ? The Pap is a screening test for cervical cancer. It is ?? not a diagnostic test and is subject to false negative ?? and false positive results. It is most reliable when a ?? satisfactory sample, regularly obtained, is submitted ?? with relevant clinical findings and history, and when ?? the Pap result is evaluated along with historic and ?? current clinical information. ?? Hand Laminator : SEE COMMENT [facility] Comment: JXM, CT(ASCP) CT screening location: [address] ??[phone] Interpretation/R esult: Negative for intraepithelial lesion or malignancy. [facility] LMP: NONE GIVEN [facility] Prev. BX: NONE GIVEN [facility] Prev. PAP: NONE GIVEN [facility] SOURCE: None given [facility] Statement Of Adequacy: SEE COMMENT [facility] Comment: Satisfactory for evaluation. Endocervical/transformation zone component absent. Age and/or menstrual status not provided 01/26/2021 us Marzena Main MD LAB PATHOLOGY ORDERAB LES Final Result Performing Organization Address [facility]/ZIP Co de Phone Number [facility] [address] [place] [address], from Last 3 Months or Most Recently Relevant to Health Maintenance Insurance [facility] C3 Care Teams Home Health Administrator Relationship Specialty Start Date End Date Marzena Strong MD [address] [place] [phone] PCP - General Family Medicine 04/01/19 Ricarda Osullivan Tile EdgerMixer Operator Tablets 04/02/24
--- OUTSIDE RECORDS SUMMARY | 2024-06-07 14:37 | XMS_ITS | Encounter Summary ---
Author Organization [facility] Address [address] [place] [address] 7 [place] [address] Care Team Providers Care Broker Associate Name Role Phone Marzena Strong MD Primary Care Provide r Reason for Visit * Reason Onset Date Comments triage 08/26/2022 Encounter Details Date Type Department Care Team (Late st Contact Info) Description 08/26/2022 Telephone [facility] [address], [place] [phone] Marzena Strong MD [address] [place], [place] [phone] triage Social History Tobacco Use Types Packs/Day Years [...] Telephone Encounter - Margoth Cummings RN - 08/26/2022 10:49 AM EDT Triage call with [employer] Driver ID [id number] Attempted to contact x2, no answer, unable to leave message. Pt voice mail box isn't set up. * Telephone Encounter - Mohit Sousa - 08/26/2022 9:45 AM EDT Symptom: Body Aches Outcome: Schedule an appointment to be seen within 3 days Reason: Caller denied all higher acuity questions The caller accepted this outcome documented in this encounter Plan of Treatment Upcoming Encounters Date Type Department Care Team (Late st Contact Info) Description 08/12/2024 9:00 AM EDT Office Visit [facility] [address] [place] [phone] Marzena Strong MD [address] [place] [address] documented as of this encounter Visit Diagnoses Not on filedocumented in this encounter Care Teams Broker Associate Relationship Specialty Start Date End Date Marzena Strong MD [address] [place] [address] [phone] PCP - General Family Medicine 04/01/19 Ricarda Osullivan Ends Breakage ClerkTar Leveler 04/02/24 documented as of this encounter
--- OUTSIDE RECORDS SUMMARY | 2024-06-07 14:37 | XMS_ITS | Encounter Summary ---
Author Organization [employer] Address [address] [place] [address] [address] [place] [address] Care Team Providers Care Mainframe Systems Administrator Name Role Phone Marzena Strong MD Primary Care Provide r Reason for Visit * Reason Comments Med Refill Encounter Details Date Type Department Care Team (Late st Contact Info) Description 01/09/2023 Refill [facility] [address] [place] [address] [facility] [address] [place], [place] [phone] Facial rash Social History Tobacco Use Types [...] Description 08/12/2024 9:00 AM EDT Office Visit [facility] [address] [place] [phone] Marzena Strong MD [address] [place] [address] documented as of this encounter Visit Diagnoses Diagnosis Facial rash documented in this encounter Additional Health Concerns Assessment Noted Time PHQ-9 Depression Total Score: 18 023 11:12 AM EDT documented as of this encounter Care Teams Mainframe Systems Administrator Relationship Specialty Start Date End Date Marzena Strong MD [address] [place] [address] PCP - General Family Medicine 04/01/19 Ricarda Osullivan Field Radio OperatorRoad Traffic Controller 04/02/24 documented as of this encounter
--- OUTSIDE RECORDS SUMMARY | 2024-06-07 14:37 | XMS_ITS | Continuity of Care Document ---
Author Organization [facility] Address PLANT ELECTRICAL [employer]INE[employer] [facility] [address] [place] [address] Phone Care Team Providers Care Physician/Allergy/Immunology Name Role Phone Lance MARIAHLucio Unavailable U [...] Copied on Encounter [facility] , [employer] [facility] [address] [place], [address], [place] tel:[phone] [facility] [address] No-show for appointment Sep-0 8- 0 Lance Valdes. [address], [id number] , [place], [place], [id number], [place]. tel:[phone] [facility] , [facility] [address] [place] [address], [place], [address], [place] tel:[phone] [facility] No Information Sep-0 3-202 0 Zackery Flowers. [address] [facility] [address], [id number] , [place], [place], [id number], [place]. tel:[phone] OFFICE/OUTPAT IENT VISIT, [facility] , [facility] [address] [place] [address], [place], [address], [place] tel:[phone] [facility] rash (chief complaint) Rosacea, acne Sep-0 2- 0 Zackery Flowers. [address] [facility] [address], [id number] , [place], [place], [id number], [place]. tel:[phone] Family History Family Member Type Diagnosis Age At Onset No Information Payers Payer name Insurance type Covered alliance party ID Authoriza tion(s) No Information Social History Type Description Quantity Date Captured [...]
== END 2024-06-07 13:44 | disposition home or self-care (01) ==
PROVIDERS: Visit Provider Internal Medicine Cardiovascular Disease
DX: R07.9 Chest pain, unspecified (principal)
CPT/HCPCS: 99213

== ENCOUNTER → 2024-06-07 12:54 | Outpatient (BNVA) | payer MEDICAID, SELFPAY | PROVIDERS: Visit Provider Internal Medicine Cardiovascular Disease | DX: R07.9 Chest pain, unspecified (principal) | CPT/HCPCS: 99212 ==

== ENCOUNTER 2025-03-28 10:53 | Outpatient (REF) | payer MEDICAID, SELFPAY ==
[2025-03-28 13:45] LABS: MANUAL DIFF FLAG NO
[2025-03-28 14:02] LABS: Hematocrit 40.1 % (37.0-47.0); Hemoglobin 13.2 g/dl (12.0-16.0); Imm Gran Abs Auto 0.01 X10*3/uL (0.00-0.03); Imm Gran Pct Auto 0.2 % (0.0-0.4); Lymphocytes Absolute Auto 1.6 X10*3/uL (1.2-4.9); Mean Corpuscular HGB Conc 32.9 g/dl (31.0-35.0); Mean Corpuscular Hemoglobin 30.1 pg (27.0-33.0); Mean Corpuscular Volume 91.3 fL (80.0-98.0); NRBC Abs Auto 0.000 X10*3/uL (0.0-0.012); NRBC Pct Auto 0.0 /100WBC (0.0-0.2); Platelet Count 213 X10*3/uL (160-400); Red Blood Count 4.39 X10*6/uL (4.20-5.50); White Blood Count 5.0 X10*3/uL (4.8-10.8)
[2025-03-28 14:17] LABS: Alanine Aminotransferase 27 U/L (0-31); Albumin Level 4.6 g/dL (3.5-5.0); Alkaline Phosphatase 68 U/L (39-117); Anion Gap 9 (12-20); Aspartate Amino Transferase 26 U/L (5-31); Blood Urea Nitrogen 9 mg/dL (9-16); Calcium 9.1 mg/dL (8.4-10.2); Carbon Dioxide 26 mmol/L (22-29); Chloride 109 mmol/L (96-108); Cholesterol 165 mg/dL (<200); Estimated Glomerular Filt Rate > 60; HDL Cholesterol 52 mg/dL (>40); Potassium 3.7 mmol/L (3.3-5.1); Sodium 140 mmol/L (135-145); Total Protein 7.0 g/dL (6.5-8.0); Triglycerides 112 mg/dL (<150)
[2025-03-28 14:48] LABS: Folate 3.1 ng/mL (> or = 4.0); Vitamin B12 321 pg/mL (200-900)
== END 2025-03-28 10:54 | disposition home or self-care (01) ==
LOC: HO.HHCL 10:53
PROVIDERS: PCP Internal Medicine; Visit Provider Internal Medicine
DX: E51.2 Wernicke's encephalopathy (principal); E87.6 Hypokalemia; F33.1 Major depressive disorder, recurrent, moderate
CPT/HCPCS: 36415; 80053; 80061; 82306; 82607; 82746; 83036; 84207; 84443; 85025; 86592

== ENCOUNTER 2025-03-29 09:43 | Outpatient (AMB) | payer MEDICAID, SELFPAY ==
--- OUTSIDE RECORDS SUMMARY | 2025-03-28 10:15 | XMS_ITS | Encounter Summary ---
Author Organization [employer] Address [address] [facility] 7 [place] [address] Care Team Providers Care Pie Crimping Machine Operator Name Role Phone Marzena Strong MD Primary Care Provide r Encounter Details Date Type Department Care Team (Latest Contact Info) Description 03/28/2025 10:15 AM EST Procedure Visit [facility] [address] [place], [place] [phone] Marzena Strong MD [address], [place] [phone] Primary hypertension (Primary Dx); Gastroesophageal reflux disease, unspecified whether esophagitis present; Seropositive rheumatoid arthritis (CMS/HCC) (HCC); Wernicke's encephalopathy; Pseudotumor cerebri Social History Tobacco Use Types Packs/Day Years Used Date Smoking Tobacco: Former Cigarettes Q uit: 2023 Passive Smoke Exposure: Current Smokeless Tobacco: Never Comments:Has quit smoking 1 year ago. Alcohol Use Standard Drinks/Week Comments Not Currently 0 (1 standard drink = 0.6 oz pur e alcohol) Depression Answer Date Recorded Patient Health Questionnaire-9 Score 20 04/28/2024 Patient Health Questionnaire-9 Score 20 04/28/2024 Last PHQ-9: Questionnaire Data Not on file 0 04/28/2024 Housing Stability Answer Date Recorded What is your housing situation today? I am not s ure 08/05/[address] you li ve. Do you have problems with any of the following? None of the above 08/05/2024 Food Insecurity Answer Date Recorded Within the [...] Access Answer Date Recorded Internet Access Q1 Yes 01/30/2025 Internet Access Q2 Not on file 01/30/2025 Comments No Sex and Gender Information Value Date Recorded Sex Assigned at Female 02/11/2022 10:36 AM EDT Legal Sex Female 10:36 AM EDT Gender Identity Female 02/11/2022 10:36 AM EDT Sexual Orientation Straight 02/11/2022 10 :36 AM EDT documented as of this encounter Last Filed Vital Signs Vital Sign Reading Time Taken Comments Blood Pressure 112/68 03/28/2025 10:13 AM EST Pulse 77 03/28/2025 10:13 AM EST Temperature 35.9 C (96.7 F) 03/28/2025 10:13 AM EST Respiratory Rate 18 03/28/2025 10:13 AM EST Oxygen Saturation 99% 03/28/2025 10:13 AM EST Inhaled Oxygen Concentration - - Weight 52.6 kg (116 lb) 03/28/2025 10:13 AM EST Height 154.9 cm (5' 1 ) 03/28/2025 10:13 AM EST Body Mass Index 21.92 03/28/2025 10:13 AM EST documented in this encounter Progress Notes * Marzena Main MD - 03/28/2025 10:15 AM EST SUBJECTIVE: Leah Hall is a 29 y.o. year old female who presents for Chronic Disease Management . Leah Hall, 29 years Wernicke Encephalopathy - History of Wernicke encephalopathy due to vitamin deficiency - Ongoing memory problems interfering with daily activities - Forgetfulness requiring assistance for daily tasks - Previous vitamin B supplementation, not currently taking vitamins - Blood tests for vitamin levels ordered but not yet completed Gastroesophageal Reflux Disease (GERD) / Gastric Acidity - History of high-dose pantoprazole use for gastric acidity - Not currently taking medication for gastric acidity - No current complaints of stomach pain or discomfort Asthma - History of asthma - Denies recent asthma symptoms Allergic Reactions - History of allergies - Denies recent allergic reactions Low Back Pain - History of low back pain - Has performed physical therapy exercises in the past Electrolyte Disturbance - History of low potassium levels in the past Misc - Difficulty walking and slow gait requiring assistance Social History Social History Narrative Not on file Problem List[1] Class 3 severe obesity due to excess calories without serious comorbidity with body mass index (BMI) of 45.0 to 49.9 in adult ([facility]) Seropositive rheumatoid arthritis ([facility]) ([facility]) Gastritis Fibromyalgia Heartburn Myofascial pain Polyarthropathy Polymyalgia ([facility]) Rheumatoid factor positive Rheumatoid arthritis of elbow ([facility]) ([facility]) Scleral icterus Missed period Irregular periods Insomnia Numbness of hand Hand pain H. pylori infection Foot pain Urinary frequency HTN (hypertension) Generalized abdominal pain Encounter for prescription for depo-Provera Health care maintenance Lung nodules Chronic fatigue Dyspnea on exertion Other chest pain Iron deficiency Generalized pain Nausea & vomiting Wernicke's encephalopathy Pseudotumor cerebri BLANQUITA (acute kidney injury) Other hydronephrosis Chronic bilateral low back pain Suprapubic discomfort Tachycardia Precordial pain Costochondritis Palpitations Anxiety Moderate episode of recurrent major depressive disorder ([facility]) ([facility]) Hypokalemia Chronic pain of right knee Esophagitis Family History[2] Review of Systems Constitutional: Negative. HENT: Negative. Respiratory: Negative. Cardiovascular: Negative. Musculoskeletal: Positive for arthralgias and myalgias. Psychiatric/Behavioral: Positive for confusion. OBJECTIVE: Vitals: 03/28/25 1013 BP: 112/68 BP Location: Left arm Patient Position: Sitting BP Cuff Size: Adult Pulse: 77 Resp: 18 Temp: 96.7 ??F (35.9 ??C) TempSrc: Temporal SpO2: 99% Weight: 116 lb (52.6 kg) Height: 5' 1 (1.549 m) Physical Exam Cardiovascular: Rate and Rhythm: Normal rate and regular rhythm. Pulmonary: Effort: Pulmonary effort is normal. Breath sounds: Normal breath sounds. Abdominal: General: Abdomen is flat. Palpations: Abdomen is soft. Musculoskeletal: Right lower leg: No edema. Left lower leg: No edema. Neurological: Mental Status: She is alert. Follow Up: No follow-ups on file. Medications Ordered Prior to Encounter[3] Problem List Items Addressed This Visit GERD (gastroesophageal reflux disease) Relevant Medications pantoprazole (Protonix) 20 MG EC tablet HTN (hypertension) - Primary Seropositive rheumatoid arthritis ([facility]/HCC) ([facility]) Documentation for platter will be fill out Wernicke's encephalopathy Pseudotumor cerebri Gastroesophageal reflux disease, unspecified whether esophagitis present: - Gastroesophageal reflux disease present. - Restart pantoprazole at a high dose. Instructed to take daily, preferably fasting, but may take once daily as tolerated. Refill prescribed. Primary hypertension: - Hypertension under good control. - Continue current management and monitoring. Wernicke's encephalopathy: - Wernicke's encephalopathy secondary to vitamin deficiency. Partial reversibility discussed. - Neurology referral placed; neurology appointment scheduled for March 29, 2025 at [facility]. Ordered blood tests to monitor vitamin levels and potassium. Advised to complete labs as soon as possible. Pseudotumor cerebri: - Pseudotumor cerebri present. - Neurology referral placed; neurology appointment scheduled for March 29, 2025 at [facility]. Will monitor and follow up with neurology. Memory impairment: - Persistent memory impairment, likely related to Wernicke's encephalopathy. - Monitor cognitive status. Caregiver instructed to accompany to appointments and assist with dailyactivities. Asthma: - Asthma present. - Attempted to refill inhaler; insurance plan does not cover current medication. Will clarify preferred formulary steroid inhaler and adjust prescription accordingly. Low back pain: - Low back pain present. - Advised to restart physical therapy exercises. Weight management: - Weight loss discussed as a goal. - Advised to reduce intake of high-calorie beverages. Disability documentation: - Need for disability parking permit due to impaired mobility and memory impairment. - Will complete and sign required disability documentation for vehicle permit. This note was drafted using Ambient (AI) technology. The patient/patient's guardian has been informed and has consented to the use of this technology: Yes [1] Patient Active Problem List Diagnosis Seropositive rheumatoid arthritis ([facility]/HCC) ([facility]) Gastritis Fibromyalgia Heartburn Myofascial pain Polyarthropathy Polymyalgia (CMS/HCC) Rheumatoid factor positive Rheumatoid arthritis of elbow (CMS/HCC) ([facility]) Scleral icterus Missed period Irregular periods Insomnia Numbness of hand Hand pain H. pylori infection Foot pain Urinary frequency HTN (hypertension) Generalized abdominal pain Encounter for prescription for depo-Provera Health care maintenance Lung nodules Chronic fatigue Dyspnea on exertion Other chest pain Iron deficiency Generalized pain Nausea & vomiting Wernicke's encephalopathy Pseudotumor cerebri BLANQUITA (acute kidney injury) Other hydronephrosis Chronic bilateral low back pain Suprapubic discomfort Tachycardia Precordial pain Costochondritis Palpitations Anxiety Moderate episode of recurrent major depressive disorder (CMS/HCC) ([facility]) Hypokalemia Chronic pain of right knee Esophagitis GERD (gastroesophageal reflux disease) [2] Family History Problem Relation Name Age of Onset Hypertension Mother Diabetes type II Mother Hypertension Father [3] Current Outpatient Medications on File Prior to Visit Medication Sig Dispense Refill Blood Pressure kit 1 kit in the morning. 1 kit 0 cetirizine (ZyrTEC) 10 MG tablet Take 1 tablet (10 mg) by mouth in the morning. Prn. 30 tablet 2 folic acid (Folvite) 1 MG tablet Take 1 tablet (1 mg) by mouth Once per day. 30 tablet 2 GaviLAX 17 GM/SCOOP powder Take 17 g by mouth if needed each day (constipation). lidocaine (Lidoderm) 5 % patch Apply 1 patch topically Once per day. Remove & discard patch within 12 hours or as directed by MD. 30 patch 1 pyridoxine (Vitamin B-6) 50 MG tablet TAKE 1 TABLET BY MOUTH EVERY DAY 30 tablet 1 sucralfate (Carafate) 1 g tablet Take 1 tablet (1 g) by mouth 4 times daily. For esophagitis 180 tablet 1 thiamine (Vitamin B-1) 100 MG tablet Take 1 tablet (100 mg) by mouth Once per day. 30 tablet 2 Ventolin HFA 108 (90 Base) MCG/ACT inhaler INHALE 2 PUFFS EVERY 6 HOURS NEEDED FOR WHEEZING 18 g1 [DISCONTINUED] pantoprazole (Protonix) 40 MG EC tablet Take 1 tablet (40 mg) by mouth 2 times daily. Do not crush, chew, or split. 60 tablet 2 No current facility-administered medications on file prior to visit. documented in this encounter Miscellaneous Notes * Assessment & Plan Note - Marzena Main MD - 03/28/2025 1:19 PM EST Associated Problem(s): Seropositive rheumatoid arthritis (CMS/HCC) (HCC) Documentation for platter will be fill out documented in this encounter Plan of Treatment Upcoming Encounters Date Type Department Care Team (Late st Contact Info) Description 04/29/2025 2:45 PM EST Office Visit [facility] [address] [place] [phone] Marzena Strong MD [address], [place] [phone] documented as of this encounter Visit Diagnoses Diagnosis Primary hypertension- Primary Unspecified essential hypertension Gastroesophageal reflux disease, unspecified whether esophagitis present Seropositive rheumatoid arthritis (CMS/HCC) (HCC) Wernicke's encephalopathy Other and unspecified manifestations of thiamine deficiency Pseudotumor cerebri Benign intracranial hypertension documented in this encounter Additional Health Concerns Assessment Noted Time PHQ-9 Depression Total Score: 20 025 11:00 AM EST documented as of this encounter Care Teams Pie Crimping Machine Operator Relationship Specialty Start Date End Date Marzena Strong MD [address] [place] [address] [phone] PCP - General Family Medicine 04/01/19 Heather Betancourt Cheese Factory Worker 11/01/24 documented as of this encounter
--- NOTE | 2025-03-29 09:47 | A.OFFVIS_ITS ---
Intake Visit Reasons: Wernicks Encephalopathy Allergies No Known Allergies Allergy (Verified 03/08/24 15:50) HPI Comments Details: This is a 29-year-old Persian-speaking woman who has a history of GI bleed, GERD, hiatal hernia, depression and anxiety and hypertension bronchial asthma anticardiolipin antibody titers positive who underwent bariatric sleeve gastrectomy at [facility] on 07/22/2023. She has dropped her weight from 220-117 lb. She is here for evaluation of memory problems with both short- term and long-term noted since surgery. She is taking her vitamins. Her folate acids levels were low and vitamin-D levels were low. Her vitamin-B levels were not checked. She has no other specific complaints. [facility]LY [facility] Medical History GI bleed Arthritis GERD (gastroesophageal reflux disease) Depression Anxiety HTN (hypertension) Syncope Anti-cardiolipin antibody positive Rash and other nonspecific skin eruption Hiatal hernia Pulmonary nodules Chest pain Early stage of Obesity, morbid, BMI 40.0-49.9 Missed menses COVID-19 Asthma Rheumatoid arthritis Abnormal laboratory test Numbness in both hands Polyarthritis Myofascial pain syndrome Surgical History S/P laparoscopic sleeve gastrectomy Hx of elbow surgery H/O colonoscopy Hx of cholecystectomy H/O breast biopsy Hx of section Family History Maternal Grandmother Diabetes Father HTN (hypertension) Mother HTN (hypertension) Maternal Aunt Colon cancer Social History Household Members: Family Housing: House Are you a primary progressive care nurse to a significant other at home: No Do you presently have visiting nurse or other home services: No Alcohol intake: never Patient Tobacco Use Status: Former Tobacco user Tobacco use type: Cigarette service: No Gender identity: Female Review of Systems Neuro Reports memory loss Psych Reports anxiety, Reports depression and Reports memory loss Physical Exam Neuro Other: Mini Mental Status Exam Level of Consciousness:?Alert.? Orientation:?Knows correct year, month, date, day and season.?Knows correct city, county and state. Knows correct location and floor.? Registration:?Able to register 3 objects.? Attention:?Serial 7's performed?? accurately.? Recall:?Able to recall 3 out of 3 objects.? Language:?Normal spontaneous speech, fluency, repetition, naming, comprehension, reading, and writing.? ?? Total Score:?30/30.? Neurological Abnormal neurological findings:??None. ? Mental Status:?Alert and oriented X 3.?Normal attention, orientation, memory, and affect.? Cranial Nerves:?Pupils are equal, round and reactive to light. Fundoscopy shows normal disc bilaterally. External ocular muscles are intact. Visual jacobs are full, no ptosis. Face is symmetrical, no facial weakness or droop. Facial sensations are normal.? Tongue protrudes in midline. Palate elevates symmetrically. Shoulder?? shrugging is normal.? Motor Examination:?Normal muscle tone, bulk and strength.?No atrophy or fasciculations.?No drift of the extended upper extremities.?Deep tendon reflexes are 2+.?Plantars?? are flexor.? ?Motor Strength:? Proximal Muscles (out of 5):?5 Distal Muscles (out of 5):?5 Neck Flexors (out of 5):?5 Neck Extensors (out of 5):?5 Deltoid (out of 5):?5 Biceps (out of 5):?5 Triceps (out of 5):?5 Serratus Anterior (out of 5):?5 Wrist Extensors (out of 5):?5 APB (out of 5):?5 Finger Spread (out of 5):?5 Ileopsoas (out of 5):?5 Quadriceps (out of 5):?5 Hamstrings (out of 5):?5 Tibialis Anterior (out of 5):?5 Peronei (out of 5):?5 EDB (out of 5):?5 Gastrocnemius (out of 5):?5 Straight Leg Raising:?90 degrees.? Sensory Exam:?Normal light touch,?? temperature, pinprick, vibration and joint- position sensations.?Rhomberg?? sign is absent.? Coordination:?No ataxia,?no titubation,?vjjzfs-ft-wuum, sczg-azeo-[id number] test, and rapid alternating?? movements were normal.? Gait Exam:?Normal. ? Cerebellar Signs:?Sddiwa-ka-truv and?? vjmw-vq-mevo is normal.?No dysdiadochokinesia.? Extrapyramidal System:?No tremor or?rigidity, normal facial expressions.?No bradykinesia. No bradyphrenia. Normal arm swing and posture. No propulsion or retropulsion.? Speech:?Normal,?no dysphasia or dysarthria.? General Examination GENERAL APPEARANCE:??Morbid obesity, in no acute distress?.? ?? HEAD:??normocephalic,?atraumatic.? ?? EYES:??sclera non-icteric,?conjunctiva clear.? ?? EARS:??auditory canal clear,?tympanic membrane intact, clear.? ?? NOSE:??no lesions.? ?? ORAL CAVITY:??gums normal,?mucosa moist,?no lesions.? ?? THROAT:??clear.? ?? NECK/THYROID:??no cervical lymphadenopathy,?thyroid normal,?neck supple, full range of motion,?no carotid bruit.? ?? SKIN:??no rashes,?no significant?? birthmarks.? ?? HEART:??S1, S2 normal,?no murmurs? ?? LUNGS:??clear anteriorly and ?posteriorly? ?? CHEST:??no gross rib deformity,?clear to ?auscultation.? ?? BACK:??normal exam of spine.? ?? MUSCULOSKELETAL:??normal.? ?? EXTREMITIES:??no edema.? ?? PERIPHERAL PULSES:??normal.? ?? PSYCH:??alert, oriented,?cognitive function intact,?cooperative with exam?,?alert,?? oriented,?cognitive ?function intact,?cooperative with exam.? Assessment & Plan Assessment & Plan (1) Memory deficit: Code(s): R41.3 - Other amnesia Category: Medical (2) Wernicke encephalopathy: Code(s): E51.2 - Wernicke's encephalopathy Category: Medical Plan check bit B12, folate, Thiamine, Riboflavin, TSH . Use B100 complex daily; EEG. Orders: Orders Vitamin B12 and Folate Today E51.2 - Wernicke's encephalopathy EEG Routine Today E51.2 - Wernicke's encephalopathy, R41.3 - Other amnesia Vitamin B1 Today E51.2 - Wernicke's encephalopathy Vitamin B2 (Riboflavin) Today E51.2 - Wernicke's encephalopathy Vitamin D 25-OH (D2 and D3) Today E51.2 - Wernicke's encephalopathy, R41.3 - Other amnesia Coding Level of Care Code New Pt Level 5 (93891) Diagnoses Memory deficit R41.3 Wernicke encephalopathy E51.2
--- OUTSIDE RECORDS SUMMARY | 2025-03-29 11:34 | XMS_ITS ---
Author Organization [facility] an d Nursing Care Team Providers Care Senior Investment Manager Name Role Phone John Lua Unavailable Unavailable Nithya Forde Unavailable Allergies and adverse reactions No Known Allergies Care Team Name Role Address Phone Organization Dates Nithya Forde PCP [address], [address], [facility] (Office): : [facility] 12/14/2023 - 01/15/2024 John Lua [address] [facility] [address], [place], [address], [facility] (Office): : : [facility] 12/14/2023 - 01/15/2024 Immunizations Immunization Status Vaccine Details Vaccine Code CodeSystem Date Notes Influenza (standard dose syringe) completed Influenza, Madin Steedman Canine Kidney, subunit, quadrivalent, injectable, preservative free lotNumber: [id number] expiry: 10/11/2024 Mfg: [id number] Given 0.5 ml Left Deltoid intramuscularly 171 CVX created date: 01/14/2024 administer ed date: 01/13/2024 Educated by nurse on 01/13/2024 PCV20 cancelled Pneumococcal conjugate vaccine 20-valent (PCV20), polysaccharide [id number] conjugate, adjuvant, preservative free 216 CVX created date: 01/07/2024 consent date: 01/07/2024 PCV15 cancelled Pneumococcal conjugate vaccine 15-valent (PCV15), polysaccharide [id number] conjugate, adjuvant, preservative free 215 CVX created date: 01/07/2024 consent date: 01/07/2024 Mental Status Section Date Assessment Total Score Description 01/15/2024 BIMS 10 moderate cognit mariusz impairment CAM 0 No delirium ind icated PHQ-9 00 12/16/2023 BIMS 08 moderate cognit mariusz impairment CAM 0 No delirium ind icated PHQ-9 00 Insurance Providers Coverage Status Coverage Type Relationship to Subscriber Member Identifier Subscriber Identifier Group Identifier Payer Identifier and Other information Code: 2 Code System OID:[id number] .1.009527.3. 221.5 Code System Name: Source of Payment Typology (PHDSC) Display: Medicaid Translation: Code: 48 Code System: OID:2.16.840 .1.705689.6. 255.1336 Code System Name: Insurance Type Code ([id number]) Display Name: Medicaid Code: 81 Code System OID:[id number] .1.125645.3. 221.5 Code System Name: Source of Payment Typology (PHDSC) Display: Self Pay Translation: Code: 09 Code System: OID:2.16.840 .1.009166.6. 255.1336 Code System Name: Insurance Type Code ([id number]) Display Name: Self-pay Code: 349 Code System OID:2.16.840 .1.468302.3. 221.5 Code System Name: Source of Payment Typology (PHDSC) Display: Other Translation: Code: C1 Code System: OID:2.16.840 .1.716334.6. 255.1336 Code System Name: Insurance Type Code ([id number]) Display Name: Commercial Insurance Problems Problem # Description Date of onset Resolved Date Code CodeSystem Concern Status 1 ACIDOSIS, UNSPECIFIED 12/14/[address] active 2 ACQUIRED ABSENCE OF STOMACH [PART OF] 12/14/[address] active 3 ACUTE KIDNEY FAILURE, UNSPECIFIED 12/14/[address] active 4 ALTERED MENTAL STATUS, UNSPECIFIED 12/14/[address] active 5 BARIATRIC SURGERY STATUS 12/14/[address] active 6 BENIGN INTRACRANIAL HYPERTENSION 12/14/[address] active 7 DELIRIUM DUE TO KNOWN PHYSIOLOGICAL CONDITION 12/14/[address] active 8 DIAPHRAGMATIC HERNIA WITHOUT OBSTRUCTION OR GANGRENE 12/14/[address] active 9 ENCEPHALOPATHY, UNSPECIFIED 12/14/[address] active 10 ESSENTIAL (PRIMARY) HYPERTENSION 12/14/[address] active 11 FATTY (CHANGE OF) LIVER, NOT ELSEWHERE CLASSIFIED 12/14/[address] active 12 FIBROMYALGIA 12/14/20232029052384037 SNOMED CT acti ve 13 GASTRO-ESOPHAGEAL REFLUX DISEASE WITH ESOPHAGITIS, WITHOUT BLEEDING 12/14/[address] active 14 HOURGLASS STRICTURE AND STENOSIS OF STOMACH 12/14/[address] active 15 OBSTRUCTIVE AND REFLUX UROPATHY, UNSPECIFIED 12/14/[address] active 16 PREDIABETES 12/14/[address] activ e 17 RHEUMATOID ARTHRITIS, UNSPECIFIED 12/14/[address] active 18 SYSTEMIC INVOLVEMENT OF CONNECTIVE TISSUE, UNSPECIFIED 12/14/[address] active 19 ULCER OF ESOPHAGUS WITHOUT BLEEDING 12/14/[address] active 20 UNSPECIFIED ABDOMINAL PAIN 12/14/[address] active 21 UNSPECIFIED HYDRONEPHROSIS 12/14/[address] active 22 UNSPECIFIED PARALYTIC STRABISMUS 12/14/[address] active 23 UNSPECIFIED PROTEIN-CALORIE MALNUTRITION 12/14/[address] active 24 UNSPECIFIED VISUAL DISTURBANCE 12/14/[address] active 25 VITAMIN D DEFICIENCY, UNSPECIFIED 12/14/[address] active 26 WERNICKE'S ENCEPHALOPATHY 12/14/[address] active Reason for Referral No Reasons for Referral Entered Social History Social History Observation Description Start Date End Date Code Code System Current Smoking Status Tobacco smoking consumption unknown 374510258 SNOMED CT Sex Assigned At Female 1995 26721-4 [facility] Gender Identity Sexual Orientation Vital Signs Code Code System Vitals Name Values and Units Timing Information 8310-5 [facility] Body Temperature Value=97.6 Units= F 01/15/2024 04803-9 [facility] Pain Level Value=0.0 01/14/2024 2339-0 [facility] Blood Sugar Value=95.0 Units=mg/dL 01/08/2024 69569-1 [facility] Weight Voyea=057.9 Units=Lbs 12/2023 8462-4 [facility] Blood Pressure-Diastolic Value=81 Un its=mmHg 12/19/2023 8480-6 [facility] Blood Pressure-Systolic Value=98 Uni ts=mmHg 12/19/2023 9279-1 [facility] Respiratory Rate Value=18.0 Units=/m in 12/18/2023 8867-4 [facility] Heart rate Value=96.0 Units=/min 08/2023 8302-2 [facility] Height Value=65.0 Units=Inches 12/15/2023 35793-7 [facility] O2 % dC Oximetry Value=96.0 Units= % 12/14/2023
--- OUTSIDE RECORDS SUMMARY | 2025-03-29 11:34 | XMS_ITS | Encounter Summary ---
Author Organization [employer] Address [address] [facility] 7 [place] [address] Care Team Providers Care Educational Therapy Teacher Name Role Phone Marzena Strogn MD Primary Care Provide r Ying Grier Unavailable Ying Grier Unavailable Reason for Visit * Reason Onset Date Comments Medication Question 02/02/2024 Encounter Details Date Type Department Care Team ([facility] st Contact Info) Description 02/02/2024 Telephone [facility] [address] [place], [place] [phone] Marezna Strong MD [address] [place], [place] [phone] Medication Question Social History Tobacco Use Types [...] any questions you can contact Gema at [phone]. documented in this encounter Plan of Treatment Upcoming Encounters Date Type Department Care Team (Late st Contact Info) Description 04/29/2025 2:45 PM EST Office Visit [facility] [address] [place] [address] Marzena Strong MD [address] [place], [place] [phone] documented as of this encounter Visit Diagnoses Not on filedocumented in this encounter Additional Health Concerns Assessment Noted Time PHQ-9 Depression Total Score: 0 01/29/20 9:42 AM EDT documented as of this encounter Care Teams Educational Therapy Teacher Relationship Specialty Start Date End Date Marzena Strong MD [address] [place] [address] PCP - General Family Medicine 04/01/19 Ying Grier 11/01/24 11/02/24 Ying Grier 03/02/25 03/18/25 Ricarda Osullivan Distribution A Class LinemanBanquet Director 04/02/24 10/31/24 Heather Betancourt Distribution A Class Lineman 11/01/24 documented as of this encounter
--- OUTSIDE RECORDS SUMMARY | 2025-03-29 11:34 | XMS_ITS | Encounter Summary ---
Author Organization [employer] Address 75 [facility] 7 [place] [address] Care Team Providers Care Nitric Acid Plant Operator Name Role Phone Marzena Strong MD Primary Care Provide r Reason for Visit * Reason Onset Date Comments Results 03/28/2025 Encounter Details Date Type Department Care Team (Latest Contact Info) Description 03/28/2025 Results Follow-Up [facility] [address] [place] [address] Marzena Strong MD 230 [place] [address] CBC auto differential, Comprehensive Metabolic Panel, Hemoglobin A1c, Additional followed-up results: 4 Social History Tobacco Use Types Packs/Day Years [...] encounter Miscellaneous Notes * Telephone Encounter - Paola Milligan RN - 03/29/2025 9:01 AM EST TC placed to patient [phone] in regards to below message however no answer, RN unable to leaveVM. RN will re-attempt in PM. ----- Message from Marzena Main MD sent at 03/28/2025 4:06 PM EST ----- Please let patient know I reviewed her labs her folic acid and vitamin D is low I will send supplements to the pharmacy ----- Message ----- From: Interface, Lab Results In Sent: 03/28/2025 1:58 PM EST To: Marzena Main MD documented in this encounter Plan of Treatment Upcoming Encounters Date Type Department Care Team (Late st Contact Info) Description 04/29/2025 2:45 PM EST Office Visit [facility] [address] [place] [address] Marzena Strong MD [address] [place] [address] documented as of this encounter Visit Diagnoses Diagnosis Wernicke's encephalopathy- Primary Other and unspecified manifestations of thiamine deficiency documented in this encounter Additional Health Concerns Assessment Noted Time PHQ-9 Depression Total Score: 20 025 11:00 AM EST documented as of this encounter Care Teams Nitric Acid Plant Operator Relationship Specialty Start Date End Date Marzena Strong MD 230 [place] [address] PCP - General Family Medicine 04/01/19 Heather Betancourt Credit Underwriter 11/01/24 documented as of this encounter
--- OUTSIDE RECORDS SUMMARY | 2025-03-29 11:34 | XMS_ITS | Encounter Summary ---
Author Organization [employer] Address [address] [place] [address] Care Team Providers Care Coordinator Of Health Services Name Role Phone Marzena Strong MD Primary Care Provide r Reason for Visit * Reason Onset Date Comments Chart Prep 03/25/2025 Encounter Details Date Type Department Care Team ([facility] st Contact Info) Description 03/25/2025 Telephone [facility] [address] [place] [address] Marzena Strong MD [address] [place], [place] [phone] Chart Prep Social History Tobacco Use Types Packs/Day Years [...] encounter Miscellaneous Notes * Telephone Encounter - Fara Payne MA - 03/25/2025 2:49 PM EST Chart Prep Labs: not done L/M to patient vm Images: not applicable Referrals: complete Vaccines due: Covid, Flu, Tdap, Hep B, Hep A, and HPV Screenings: LMP and PISQ Overdue care gaps: SBIRT, PHQ-9, and AMBROSE-7 documented in this encounter Plan of Treatment Upcoming Encounters Date Type Department Care Team (Late st Contact Info) Description 04/29/2025 2:45 PM EST Office Visit [facility] [address] [place] [address] Marzena Strong MD [address] [place] [address] documented as of this encounter Visit Diagnoses Not on filedocumented in this encounter Additional Health Concerns Assessment Noted Time PHQ-9 Depression Total Score: 20 025 11:00 AM EST documented as of this encounter Care Teams Coordinator Of Health Services Relationship Specialty Start Date End Date Marzena Strong MD [address] [place] [address] PCP - General Family Medicine 04/01/19 Heather Betancourt Preschool Head Teacher 11/01/24 documented as of this encounter
--- OUTSIDE RECORDS SUMMARY | 2025-03-29 11:34 | XMS_ITS | Encounter Summary ---
Author Organization [employer] Address [address] [place] [address] Care Team Providers Care Physician Surgeon Name Role Phone Marzena Strong MD Primary Care Provide r Ying Grier Unavailable Ying Grier Unavailable Reason for Visit * Reason Onset Date Comments Results 07/24/2022 Encounter Details Date Type Department Care Team (Late st Contact Info) Description 07/24/2022 Telephone [facility] [address] [place], [place] [phone] Marzena Strong MD [address] [place], [place] [phone] Results Social History Tobacco Use Types Packs/Day [...] with lab results. Please contact pt at [phone] * Telephone Encounter - GAEL Basilio - [...] on lab results. Please contact pt at [phone] * Telephone Encounter - Mohit Sousa - 07/25/2022 9:06 AM EDT Tc from pt requesting status on lab results. Please contact pt at [phone] * Telephone Encounter - Mohit Sousa - 07/24/2022 3:29 PM EDT Tc from pt requesting lab work results Please contact pt at [phone] documented in this encounter Plan of Treatment Upcoming Encounters Date Type Department Care Team (Late st Contact Info) Description 04/29/2025 2:45 PM EST Office Visit [facility] [address] [place], [place] [phone] Marzena Strong MD [address] [place], [place] [phone] documented as of this encounter Visit Diagnoses Not on filedocumented in this encounter Care Teams Physician Surgeon Relationship Specialty Start Date End Date Marzena Strong MD [address] [place] [address] [phone] PCP - General Family Medicine 04/01/19 Ying Grier 11/01/24 11/02/24 Ying Grier 03/02/25 03/18/25 Ricarda Osullivan Business Technology ProfessorDigital Media Sales Consultant 04/02/24 10/31/24 Heather Betancourt Business Technology Professor 11/01/24 documented as of this encounter
--- OUTSIDE RECORDS SUMMARY | 2025-03-29 11:34 | XMS_ITS | Encounter Summary ---
Author Organization [employer] Address 75 [facility] 7 [place] [address] Care Team Providers Care Wheelchair Van Driver Name Role Phone Marzena Strong MD Primary Care Provide r Ying Grier Unavailable Ying Grier Unavailable Reason for Visit * Reason Onset Date Comments Nurse Triage 06/23/2023 Encounter Details Date Type Department Care Team (Late st Contact Info) Description 06/23/2023 Telephone [facility] 230 [place], [place] [phone] Marzena Strong MD [address] [place], [place] [phone] Nurse Triage Social History Tobacco Use Types Packs/Day Years Used Date Smoking Tobacco: Never Passive Smoke Exposure: Never Smokeless Tobacco: Never Alcohol Use Standard Drinks/Week Comments Not Currently 0 (1 standard drink = 0.6 oz pur e alcohol) Depression Answer Date Recorded Patient Health Questionnaire-9 Score 18 09/06/2022 Housing Stability Answer Date Recorded What is your housing situation today? I have erika sing 01/27/[address] you li [...] 06/23/2023 3:41 PM EDT Triage call with [place] Visor Installer ID [id number] Pt reports last night around 9pm Pt [...] become worse * Telephone Encounter - Belen Buckley - 06/23/2023 2:56 PM EDT Symptoms: Dizziness, Fall, Face Swelling Outcome: Schedule a same-day appointment or talk to a nurse or provider today Reason: pt stated have bruises in the face due to fall. The caller accepted this outcome Divehi speaker documented in this encounter Plan of Treatment Upcoming Encounters Date Type Department Care Team (Late st Contact Info) Description 04/29/2025 2:45 PM EST Office Visit [facility] [address] [place] [address] Marzena Strong MD [address] [place] [address] documented as of this encounter Visit Diagnoses Not on filedocumented in this encounter Additional Health Concerns Assessment Noted Time PHQ-9 Depression Total Score: 18 023 11:12 AM EDT documented as of this encounter Care Teams Wheelchair Van Driver Relationship Specialty Start Date End Date Marzena Strong MD [address] [place] [address] PCP - General Family Medicine 04/01/19 Ying Grier 11/01/24 11/02/24 Ying Grier 03/02/25 03/18/25 Ricarda Osullivan Tag WriterCaddy/Caddie Supervisor 04/02/24 10/31/24 Heather Betancourt Tag Writer 11/01/24 documented as of this encounter
--- OUTSIDE RECORDS SUMMARY | 2025-03-29 11:34 | XMS_ITS | Encounter Summary ---
Author Organization [employer] Address [address] [place] [address] Care Team Providers Care Geophysicist Name Role Phone Marzena Strong MD Primary Care Provide r Ying Grier Unavailable Ying Grier Unavailable Reason for Visit * Reason Onset Date Comments triage 08/26/2022 Encounter Details Date Type Department Care Team (Late st Contact Info) Description 08/26/2022 Telephone [facility] 230 [place], [place] [phone] Marzena Strong MD [address] [place], [place] [phone] triage Social History Tobacco Use Types Packs/Day [...] 08/26/2022 10:49 AM EDT Triage call with [employer] Turning Machine Operator ID [id number] Attempted to contact x2, no answer, unable [...] Description 04/29/2025 2:45 PM EST Office Visit [facility] 230 [place], [place] [phone] Marzena Strong MD [address] [place], [place] [phone] documented as of this encounter Visit Diagnoses Not on filedocumented in this encounter Care Teams Geophysicist Relationship Specialty Start Date End Date Marzena Strong MD [address] [place], [place] [phone] PCP - General Family Medicine 04/01/19 Ying Grier 11/01/24 11/02/24 Ying Grier 03/02/25 03/18/25 Ricarda Osullivan Audio Visual TechTruck Driver Supervisor 04/02/24 10/31/24 Heather Betancourt Audio Visual Tech 11/01/24 documented as of this encounter
--- OUTSIDE RECORDS SUMMARY | 2025-03-29 11:34 | XMS_ITS | Encounter Summary ---
Author Organization [employer] Address [address] [place] [address] 7 [place] [address] Care Team Providers Care Sales Architect Name Role Phone Marzena Strong MD Primary Care Provide r Ying Grier Unavailable Ying Grier Unavailable Reason for Visit * Reason Comments Med Change Request Encounter Details Date Type Department Care Team (Late st Contact Info) Description 11/19/[address] [facility] [address] [place], [place] [phone] [facility] 230 [place], [place] [phone] Facial rash Social History Tobacco Use Types [...] find out if patient has seen a medical detail representative. Patient states she has never seen one but she does have an appointment coming up in the next couple of weeks, with GI documented in this encounter Plan of Treatment Upcoming Encounters Date Type Department Care Team (Late st Contact Info) Description 04/29/2025 2:45 PM EST Office Visit [facility] [address] [place] [address] Marzena Strong MD [address] [place], [place] [phone] documented as of this encounter Visit Diagnoses Diagnosis Facial rash documented in this encounter Additional Health Concerns Assessment Noted Time PHQ-9 Depression Total Score: 18 023 11:12 AM EDT documented as of this encounter Care Teams Sales Architect Relationship Specialty Start Date End Date Marzena Strong MD [address] [place] [address] [phone] PCP - General Family Medicine 04/01/19 Ying Grier 11/01/24 11/02/24 Ying Grier 03/02/25 03/18/25 Ricarda Osullivan R D InternshipInsurance Compliance Analyst 04/02/24 10/31/24 Heather Betancourt R D Internship 11/01/24 documented as of this encounter
--- OUTSIDE RECORDS SUMMARY | 2025-03-29 11:34 | XMS_ITS | Encounter Summary ---
Author Organization [employer] Address 75 [facility] 7t [place] [address] Care Team Providers Care Massage Coordinator Name Role Phone Marzena Strong MD Primary Care Provide r Encounter Details Date Type Department Care Team (Latest Contact Info) Description 03/28/2025 Travel Social History Tobacco Use Types Packs/Day Years [...] Description 04/29/2025 2:45 PM EST Office Visit [facility] 230 [place] [address] Marzena Strong MD [address] [place] [address] documented as of this encounter Visit Diagnoses Not on filedocumented in this encounter Additional Health Concerns Assessment Noted Time PHQ-9 Depression Total Score: 20 025 11:00 AM EST documented as of this encounter Care Teams Massage Coordinator Relationship Specialty Start Date End Date Marzena Strong MD [address] [place] [phone] PCP - General Family Medicine 04/01/19 Heather Betancourt Globe Cleaner 11/01/24 documented as of this encounter
--- OUTSIDE RECORDS SUMMARY | 2025-03-29 11:34 | XMS_ITS | Encounter Summary ---
Author Organization [employer] Address 75 [facility] 7 [place] [address] Care Team Providers Care Motion Picture Narrator Name Role Phone Marzena Strong MD Primary Care Provide r Ying Grier Unavailable Ying Grier Unavailable Reason for Referral * Imaging (Routine) - Closed Specialty Diagnoses / Procedures Referred By Patrice zheng Referred To Contact Radiology Diagnoses Breast pain, left Procedures BI US Breast Complete Left Barbie Walker MD [address] [place] [address] Phone: tel: fax: [address] [phone] Phone: tel: fax: Referral ID Status Reason Start Date Expiration Date Visits Re quested Visits Authorized [id number] Closed 11/25/2022 11/25/2023 1 1 * Imaging (Routine) - Closed Specialty Diagnoses / Procedures Referred By Patrice zheng Referred To Contact Radiology Diagnoses Breast pain, left Procedures BI Mammogram Diagnostic Bilateral Barbie Walker MD [address] [place] [address] Phone: tel: fax: [address] [address] Phone: tel: fax: Referral ID Status Reason Start Date Expiration Date Visits Re quested Visits Authorized [id number] Closed 11/25/2022 11/25/2023 1 1 Encounter Details Date Type Department Care Team ([facility] Contact Info) Description 11/25/2022 Orders Only [facility] [address] [place] [phone] Barbie Walker MD [address] [place] [address] [phone] Breast pain, left (Primary Dx) Social History [...] Department Care Team (Late Contact Info) Description 04/29/2025 2:45 PM EST Office Visit [facility] [address] [place] [address] Marzena Strong MD [address] [place] [address] [phone] Scheduled Orders Name Type Priority Associated Diagnoses [...] documented as of this encounter Care Teams Motion Picture Narrator Relationship Specialty Start Date End Date Marzena Strong MD [address] [place] [address] PCP - General Family Medicine 04/01/19 Ying Grier 11/01/24 11/02/24 Ying Grier 03/02/25 03/18/25 Ricarda Osullivan Transition MgrCompensation Programs Manager 04/02/24 10/31/24 Heather Betancourt Transition Mgr 11/01/24 documented as of this encounter
--- OUTSIDE RECORDS SUMMARY | 2025-03-29 11:34 | XMS_ITS | Encounter Summary ---
Author Organization [employer] Address [address] [place] [address] [place] [address] Care Team Providers Care Apprenticeship Training Representative Name Role Phone Marzena Strong MD Primary Care Provide r Ying Grier Unavailable Ying Grier Unavailable Reason for Visit * Reason Comments Med Refill Encounter Details Date Type Department Care Team (Late st Contact Info) Description 01/09/2023 Refill [facility] [address] [place], [place] [phone] [facility] 230 [place], [place] [phone] Facial rash Social History Tobacco Use Types [...] Description 04/29/2025 2:45 PM EST Office Visit [facility] 230 [place] [address] Marzena Strong MD [address] [place] [address] documented as of this encounter Visit Diagnoses Diagnosis Facial rash documented in this encounter Additional Health Concerns Assessment Noted Time PHQ-9 Depression Total Score: 18 023 11:12 AM EDT documented as of this encounter Care Teams Apprenticeship Training Representative Relationship Specialty Start Date End Date Marzena Strong MD [address] [place] [address] [phone] PCP - General Family Medicine 04/01/19 Ying Grier 11/01/24 11/02/24 Ying Grier 03/02/25 03/18/25 Ricarda Osullivan MachinistStarch Treating Assistant 04/02/24 10/31/24 Heather Betancourt Machinist 11/01/24 documented as of this encounter
--- OUTSIDE RECORDS SUMMARY | 2025-03-29 11:34 | XMS_ITS | Encounter Summary ---
Author Organization [employer] Address [address] [place] [address] Care Team Providers Care Business Enterprise Officer Name Role Phone Marzena Strong MD Primary Care Provide r Ying Grier Unavailable Ying Grier Unavailable Reason for Visit * Reason Comments Med Refill Encounter Details Date Type Department Care Team (Late st Contact Info) Description 04/21/2024 Refill [facility] MEDICINE [address], [place] [phone] Marzena Strong MD [address], [place] [phone] Primary hypertension Social History Tobacco Use Types [...] Description 04/29/2025 2:45 PM EST Office Visit [facility] MEDICINE [address] [place] [phone] Marzena Strong MD [address] [place] [address] documented as of this encounter Visit Diagnoses Diagnosis Primary hypertension Unspecified essential hypertension documented in this encounter Additional Health Concerns Assessment Noted Time PHQ-9 Depression Total Score: 17 024 10:47 AM EST documented as of this encounter Care Teams Business Enterprise Officer Relationship Specialty Start Date End Date Marzena Strong MD [address] [place] [address] [phone] PCP - General Family Medicine 04/01/19 Ying Grier 11/01/24 11/02/24 Ying Grier 03/02/25 03/18/25 Ricarda Osullivan Sprinkler InstallerShuttleless Loom Weaver 04/02/24 10/31/24 Heather Betancourt Sprinkler Installer 11/01/24 documented as of this encounter
--- OUTSIDE RECORDS SUMMARY | 2025-03-29 11:35 | XMS_ITS | Clinical Summary ---
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 Blood Pressure kitIndications:El evated blood pressure reading 1 kit in the morning. 1 kit 023 Active cetirizine (ZyrTEC) 10 MG tablet Take 1 tablet (10 mg) by mouth in the morning. Prn. 30 tablet 2 023 Active GaviLAX 17 GM/SCOOP powder Take 17 g by mouth if needed each day (constipation) . 024 Active Ventolin HFA 108 (90 Base) MCG/ACT inhaler INHALE 2 PUFFS EVERY 6 HOURS NEEDED FOR WHEEZING 18 g 1 024 Active sucralfate (Carafate) 1 g tabletIndications :Wernicke's encephalopathy Take 1 tablet (1 g) by mouth 4 times daily. For esophagitis 180 tablet 1 024 Active thiamine (Vitamin B-1) 100 MG tabletIndications :Wernicke's encephalopathy Take 1 tablet (100 mg) by mouth Once per day. 30 tablet 2 024 Active folic acid (Folvite) 1 MG tabletIndications :Wernicke's encephalopathy Take 1 tablet (1 mg) by mouth Once per day. 30 tablet 2 10/17/2 024 Active lidocaine (Lidoderm) 5 % patchIndications: Chronic bilateral low back pain, unspecified whether sciatica present Apply 1 patch topically Once per day. Remove & discard patch within 12 hours or as directed by MD. 30 patch 1 Active pyridoxine (Vitamin B-6) 50 MG tabletIndications :Wernicke's encephalopathy TAKE 1 TABLET BY MOUTH EVERY DAY 30 tablet 1 Active pantoprazole (Protonix) 20 MG EC tabletIndications :Gastroesophageal reflux disease, unspecified whether esophagitis present Take 1 tablet (20 mg) by mouth before breakfast. Do not crush, chew, or split. 30 tablet 3 025 2025 Active folic acid (Folvite) 1 MG tabletIndications :Wernicke's encephalopathy Take 1 tablet (1 mg) by mouth Once per day. 30 tablet 11 025 2025 Active cyanocobalamin (Vitamin B-12) 100 MCG tabletIndications :Wernicke's encephalopathy Take 1 tablet (100 mcg) by mouth Once per day. 30 tablet 11 025 2025 Active cholecalciferol (Vitamin D-3) 25 MCG (1000 UT) tabletIndications :Wernicke's encephalopathy Take 1 tablet (25 mcg) by mouth Once per day. 60 tablet 1 Active pantoprazole (Protonix) 40 MG EC tabletIndications :Esophagitis Take 1 tablet (40 mg) by mouth 2 times daily. Do not crush, chew, or split. 60 tablet 2 025 2024 Discontinued Active Problems Problem Noted Date Diagnosed Date GERD (gastroesophageal reflux disease) 5 Esophagitis 04/19/2024 Assessment & Plan (04/19/2024 1:35 [...] XRAY results Hypokalemia 03/08/2024 Assessment & Plan (01/25/2025 10:33 AM EDT): I will recheck her blood work to monitor Assessment & Plan (04/19/2024 1:35 PM EST): [...] and confusion. Additionally, her mother relocated to [place] just one week ago.. Due to the [...] External OP therapy referral and completion of [facility] Intake for OP Therapy Patient Self Plan Patient to utilize skills provided in intervention , [facility], Patient to engage in OP therapy , and Patient to reach out to [facility] as needed Moderate episode of recurren t major depressive disorder (CMS/HCC) 03/01/2024 Assessment & Plan (01/25/2025 10:33 AM EDT): Counseling done today Continue to follow-up with therapist Wernicke's encephalopathy 01/29/2024 Assessment & Plan (01/25/2025 10:34 AM EDT): Referral to neurology already done I put a new one today patient to be contacted with information of her referral Blood work order again to monitor Assessment & Plan (04/12/2024 4:19 PM EST): [...] re-evaluation Pseudotumor cerebri 01/29/2024 Assessment & Plan (01/25/2025 10:34 AM EDT): Referral to neurology already done I put a new one today patient to be contacted with information of her referral Assessment & Plan (01/29/2024 12:08 PM EDT): [...] (11/19/2022 12:18 PM EDT): Maintain hydration 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 pylori infection 09/04/2022 Foot pain 09/04/2022 Heartburn 07/16/2022 Myofascial pain 07/16/2022 Polyarthropathy 07/16/2022 Polymyalgia 07/16/2022 Seropositive rheumatoid arthritis ([facility]) 06/12 Assessment & Plan (03/28/2025 1:19 PM EST): Documentation for sandra will be fill out Assessment & Plan (12/31/2022 3:31 PM EDT): [...] per pt -advised to continue care w ball rolling machine operator as soon as possible and w PCP in 3 mo -alarm signs and symptoms discussed w pt today Assessment & Plan (09/06/2022 11:56 AM EDT): Patient referred before to rheumatology but patient reports she was told she needed a new because provider was leaving practice Gastritis 06/27/2022 Fibromyalgia 06/27/2022 Resolved Problems Problem Noted Date Diagnosed Date Resolved Date Class 3 severe obesity due t o excess calories without serious comorbidity with body mass index (BMI) of 45.0 to 49.9 in adult 06/27/2022 Assessment & Plan (09/06/2022 11:55 AM EDT): Today extensive discussion was done about life style modifications I advise healthy diet (low calorie) and cardiovascular exercise referral for bariatric procedure done Encounters Date Type Department Care Team Description 03/28/2025 10:15 AM EST Procedure Visit [facility] [address] [place] [address] Marzena Strong MD Primary hypertension (Primary Dx); Gastroesophageal reflux disease, unspecified whether esophagitis present; Seropositive rheumatoid arthritis (CMS/HCC) (HCC); Wernicke's encephalopathy; Pseudotumor cerebri 03/28/2025 Results Follow-Up [address] [address] Marzena Strong MD CBC auto differential, Comprehensive Metabolic Panel, Hemoglobin A1c, Additional followed-up results: 4 03/28/2025 Travel 03/25/[address] [address] Marzena Strong MD Chart Prep 03/18/2025 Patient Outreach [facility] [address] [place] [address] Marzena Strong MD 03/08/2025 Patient Outreach [facility] [address] [place] [address] Marzena Strong MD Care Coordination ( Care Coordination Chart Review) 03/02/2025 Patient Outreach [facility] [address] [place] [address] Marzena Strong MD Care Coordination ([facility] ED Follow up) 03/02/2025 Patient Outreach [address] [address] Marzena Strong MD 01/25/2025 9:30 AM EDT Telemedicine [address] [address] Marzena Strong MD Moderate episode of recurrent major depressive disorder (CMS/HCC) (HCC) (Primary Dx); Wernicke's encephalopathy; Pseudotumor cerebri; Hypokalemia 01/25/2025 Travel from Last 3 Months Immunizations Immunization Administration Dates Next Due Hep B, adult [...] Mass Index 21.92 03/28/2025 10:13 AM EST Plan of Treatment Upcoming Encounters Date Type Department Care Team (Late st Contact Info) Description 04/29/2025 2:45 PM EST Office Visit [facility] [address], [place] [phone] Marzena Strong MD [address], [place] [phone] Health Maintenance Due Date Last Done Comments Alcohol/Substance Use Screening 2005 Family Planning (PISQ) 2008 HPV Vaccines (1 - 3-dose series) 2008 DTaP/Tdap/Td Vaccines (1 - Tdap) 2012 Hepatitis A Vaccines (1 of 2 - Risk 2-dose series) 2012 Hepatitis B Vaccines (2 of 3 - 19+ 3-dose series) 01/27/2023 12/30/2022 Cervical Cancer Screening 01/27/2024 HPV/Cotest 01/27/2024 Pap Smear 01/27/2024 01/26/2021 Depression Monitoring 10/26/2024 04/28/2024, 025 COVID-19 Vaccine ( season) 2024 Influenza Vaccine (#1) 2024 , 12/30/2022, 12/30/2022, Additional history exists SDOH Screening 08/05/2025 08/05/2024 Disability Screening 01/25/2026 01/25/2025 Tobacco Screening 03/28/2026 03/28/2025 Lipid Panel 03/28/2030 03/28/2025, 10/12, 07/01/2022, Additional history exists Zoster Vaccines (1 of [...] patient's age to complete this topic Meningococcal B Vaccine Aged Out No l onger eligible based on patient's age to complete this topic Meningococcal Vaccine Aged Out No prabhjot guicho eligible based on patient's age to complete this topic Pneumococcal Vaccine: Pediatrics (0 to 5 Years) and At-Risk Patients (6 to 49) Years Aged Out No longer eligible based on patient's age to complete this topic RSV under 20 months Aged Out No longe r eligible based on patient's age to complete this topic Rotavirus Vaccines Aged Out No longer eligible based on patient's age to complete this topic Procedures Procedure Name Priority Date/Time Associated Diagnosis Comments VITAMIN B12/FOLATE, SERUM PANEL Routine 03/28/2025 11:03 AM EST Wernicke's encephalopathy TSH W/REFLEX TO FT4 Routine 03/28/2025 1 1:03 AM EST Moderate episode of recurrent major depressive disorder (CMS/HCC) (HCC) VITAMIN D,25-OH,TOTAL,IA Routine 03/28/2025 11:03 AM EST Moderate episode of recurrent major depressive disorder (CMS/HCC) (HCC) LIPID PANEL, STANDARD Routine 03/28/2025 11:03 AM EST Wernicke's encephalopathy HEMOGLOBIN A1C Routine 03/28/2025 11:03 AM EST Wernicke's encephalopathy COMPREHENSIVE METABOLIC PANEL Routine 03/28/2025 11:03 AM EST Wernicke's encephalopathy Hypokalemia CBC WITH AUTO DIFFERENTIAL Routine 03/28/2025 11:03 AM EST Wernicke's encephalopathy HEPATITIS PANEL, GENERAL Routine 12/23/2022 1:58 PM EDT HIV 1/2 ANTIGEN/ANTIBODY, FOURTH GENERATION W/RFL Routine 07/01/2022 9:17 AM EDT Pelvic pain THINPREP PAP Routine 01/26/2021 12:00 AM EDT from Last 3 Months or Most Recently Relevant to Health Maintenance Results * (ABNORMAL) Vitamin D, 25-Hydroxy, Total, Immunoassay (03/28/2025 11:03 AM EST) Vitamin D 25-OH Total 19.6(L) >30 ng/mL [facility] Comment: Health Based Reference Values*< 20 ng/mL [id number] ng/mL Insufficient> 30 ng/mL Sufficient*Greta MORGAN. N Engl J Med. 2007;357:266-280There is no well-established upper level of normal vitamin Dlevels. Some laboratories use 50 ng/mL as an upper limit ofnormal. However, toxicity is patient-dependent and may occurat any level. Careful correlation with the patient'spresentation is necessary and, if there is concern forvitamin D toxicity, treatment should be consideredirrespective of the serum level.Care must be taken in interpreting Vitamin D results fromdifferent laboratories and methodologies. Published datademonstrated that results from patients undergoinghemodialysis may show a negative bias when tested withvarious automated 25-OH vitamin D assays when compared toLC-MS/MS.When testing samples from patients whose predominant form ofVitamin D is Vitamin D2, such as patients receiving VitaminD2 supplementation, results that are subtherapeutic shouldbe confirmed with another method such as LC-MS/MS. Blood Venous blood specimen / Unknown 03/28/2025 11:03 AM EST 03/28/2025 1:40 PM EST us Marzena Main MD LAB BLOOD ORDERABLES Final Result [facility] [address] [place] [phone] * (ABNORMAL) Vitamin B12/Folate, Serum Panel (03/28/2025 11:03 AM EST) Pathologist [facility] Vitamin B12 321 200 - 900 pg/mL [facility] Comment:NORMAL 200-900 PG/ML INDETERMINATE 160-199 PG/ML DEFICIENT < 160 PG/ML Folate 3.1(L) > or = 4.0 ng/mL [facility] Comment:Reference Values:> o r = 4.0 ng/mL< 4.0 ng/mL suggests folate deficiency Methotrexate, aminopterin and folinic acid(leucovorin) are chemotherapeutic agents whose molecularstructures are similar to folate; therefore, the Architectfolate assay cannot be used for patients using these drugs. Blood Venous blood specimen / Unknown 03/28/2025 11:03 AM EST 03/28/2025 1:40 PM EST us Marzena Main MD LAB BLOOD ORDERABLES Final Result Performing Organization Address [facility]/ZIP Co de Phone Number [facility] [address] [place] [phone] * TSH with Reflex to Free T4 (03/28/2025 11:03 AM EST) Pathologist [facility] TSH reflex Free T4 0.71 0.32 - 4.0 uIU/mL [facility] Blood Venous blood specimen / Unknown 03/28/2025 11:03 AM EST 03/28/2025 1:40 PM EST us Marzena Main MD LAB BLOOD ORDERABLES Final Result [facility] [address] [place] [phone] * CBC auto differential (03/28/2025 11:03 AM EST) Pathologist [facility] White Blood Count 5.0 4.8 - 10.8 X10*3/uL [facility] Red Blood Count 4.39 4.20 - 5.50 X10*6/uL [facility] Hemoglobin 13.2 12.0 - 16.0 g/dl [facility] Hematocrit 40.1 37.0 - 47.0 % [facility] Mean Corpuscular Volume 91.3 80.0 - 98.0 fL [facility] Mean Corpuscular Hemoglobin 30.1 27.0 - 33.0 pg [facility] Mean Corpuscular HGB Conc 32.9 31.0 - 35.0 g/dl [facility] Red Cell Distribution Width 12.2 11.0 - 16.0 % [facility] Platelet Count 213 160 - 400 X10*3/uL [facility] Mean Platelet Volume 10.9 9.4 - 12.3 fL [facility] Neutrophils Percent Auto 58.2 45 - 73 % [facility] Imm Gran Pct Auto 0.2 0.0 - 0.4 % [facility] Lymphocytes Percent Auto 32.0 20 - 40 % [facility] Monocytes Percent Auto 7.4 2 - 11 % [facility] Eosinophils Percent Auto 1.4 0 - 4 % [facility] Basophils Percent Auto 0.8 0 - 2 % [facility] NRBC Pct Auto 0.0 0.0 - 0.2 /100WBC [facility] Neutrophils Absolute Auto 2.9 2.0 - 8.3 x10*3/uL [facility] Imm Gran Abs Auto 0.01 0.00 - 0.03 X10*3/uL [facility] Lymphocytes Absolute Auto 1.6 1.2 - 4.9 X10*3/uL [facility] Monocytes Absolute Auto 0.4 0.1 - 1.2 X10*3/uL [facility] Eosinophils Absolute Auto 0.1 0.0 - 0.4 X10*3/uL [facility] Basophils Absolute Auto 0.0 0.0 - 0.2 X10*3/uL [facility] NRBC Abs Auto 0.000 0.0 - 0.012 X10*3/uL [facility] Blood Venous blood specimen / Unknown 03/28/2025 11:03 AM EST 03/28/2025 1:40 PM EST us Marzena Main MD LAB BLOOD ORDERABLES Final Result Performing Organization Address [facility] Co de Phone Number [facility] [address] [place] [phone] * Hemoglobin A1c (03/28/2025 11:03 AM EST) Hemoglobin A1c 4.9 <6.0 % [facility] Comment:Hemoglobin A1C Refer ence Range Adults: 4.8 - 6.0 % Non diabetic: < 6.0 % Goal: < 7.0 %Additional Action Suggested: > 8.0 %Note: Hemoglobin A1c results are invalid for patients with abnormal amounts of HbF. Blood transfusions may impact the HbA1c concentration in the patient sample. Estimated Average Glucose 94 mg/dL [facility] Comment:eAG = Estimated ave rage glucose which is %A1C expressed asaverage glucose, using the formula of the [id number] Glucose study (ADAG), Diabetes Care, Vol.31,#8,Nov. 2007 Blood Venous blood specimen / Unknown 03/28/2025 11:03 AM EST 03/28/2025 1:40 PM EST Marzena Main MD LAB BLOOD ORDERABLES Final Result Performing Organization Address [facility] Co ma Phone Number [facility] [address] [place] [phone] * Lipid Panel, Standard (03/28/2025 11:03 AM EST) Triglycerides 112 <150 mg/dL [facility] Comment:Desirable Triglyceri de: less than 150 mg/dLBorderline High Triglyceride 150-199 mg/dLHigh Triglyceride: 200-499 mg/dLVery High Triglyceride: greater than or equal to 5OO mg/dL Cholesterol 165 <200 mg/dL [facility] Comment:Desirable Cholestero l: less than 200 mg/dLBorderline High Cholesterol: 200-239 mg/dLHigh Cholesterol: greater than 239 mg/dL LDL Cholesterol Calculated 91 <100 mg/dL [facility] Comment:Desirable LDL: less than 100 mg/dLNear Optimal/Above Optimal LDL: 110- 129 mg/dLBorderline High LDL: 130-159 mg/dLHigh LDL: 160-189 mg/dLVery High LDL: greater than or equal to 190 mg/dL HDL Cholesterol 52 >40 mg/dL [facility] Comment:Desirable HDL: great er than 40 mg/dL Note: This HDL assay may give artificially low results in patients with liver disease. Blood Venous blood specimen / Unknown 03/28/2025 11:03 AM EST 03/28/2025 1:40 PM EST us Marzena Main MD LAB BLOOD ORDERABLES Final Result [facility] [address] [place] [phone] * (ABNORMAL) Comprehensive Metabolic Panel (03/28/2025 11:03 AM EST) Sodium 140 135 - 145 mmol/L [facility] Potassium 3.7 3.3 - 5.1 mmol/L [facility] Chloride 109(H) 96 - 108 mmol/L [facility] Carbon Dioxide 26 22 - 29 mmol/L [facility] Anion Gap 9(L) 12 - 20 [facility] Urea Nitrogen (BUN) 9 9 - 16 mg/dL [facility] Creatinine, Serum 0.71 0.5 - 1.4 mg/dL [facility] Estimated Glomerular Filt Rate >60 [facility] Comment:Chronic Kidney Disea se: Estimated GFR < 60 mL/min/1.03w5Nftgpr Kidney Disease: Estimated GFR < 15 mL/min/1.73m2 Glucose 76 60 - 115 mg/dL [facility] Calcium 9.1 8.4 - 10.2 mg/dL [facility] Bilirubin, Total 2.0(H) 0.0 - 1.0 mg/dL [facility] Aspartate Amino Transferase 26 5 - 31 U/L [facility] Alanine Aminotransferase 27 0 - 31 U/L [facility] Total Protein 7.0 6.5 - 8.0 g/dL [facility] Albumin Level 4.6 3.5 - 5.0 g/dL [facility] Alkaline Phosphatase 68 39 - 117 U/L [facility] Blood Venous blood specimen / Unknown 03/28/2025 11:03 AM EST 03/28/2025 1:40 PM EST Marzena Main MD LAB BLOOD ORDERABLES Final Result Performing Organization Address [facility]/ZIP Co de Phone Number [facility] [address] [place] [phone] * Hepatitis Panel, General (12/23/2022 1:58 PM EDT) Hepatitis A IgM Nonreactive Nonreactive [facility] Comment:IgM antibodies to FRANCISCO V not detected; does not exclude earlyacute or recovered HAV infection. ~Hepatitis B Surface Antibody NONREACTIVE Nonreactive [facility] Comment:Nonreactive: < 8.00 mIU/mL Hepatitis B Core Antibody Nonreactive Nonreactive [facility] Hepatitis C Antibody Nonreactive Nonreactive [facility] Comment:Antibodies to HCV no t detected; does not exclude early acuteHCV infection. Hepatitis B Surface Ag Negative Negative [facility] 12/23/2022 1:58 PM EDT 12/23/2022 1:58 PM EDT [facility] External Provider LAB BLO OD ORDERABLES Final Result Performing Organization Address [facility]/ZIP Co de Phone Number [facility] [address] [place] [phone] * HIV-1/2 Antigen and Antibodies, Fourth Generation, with Reflexes (07/01/2022 9:17 AM EDT) Pathologist [facility] HIV Antigen/Antibody, 4th Generation NON-REAC TIVE NON-REAC TIVE [facility] Comment: HIV-1 antigen and HIV-1/HIV-2 antibodies were not detected. There is no laboratory evidence of HIV infection. PLEASE NOTE: This information has been disclosed to you from records whose confidentiality may be protected by state law. If your state requires such protection, then the state law prohibits you from making any further disclosure of the information without the specific written consent of the person to whom it pertains, or as otherwise permitted by law. A general authorization for the release of medical or other information is NOT sufficient for this purpose. For additional information please refer to http://education.SlidePay/faq/GNY156 (This link is being provided for informational/ educational purposes only.) The performance of this assay has not been clinically validated in patients less than 2 years old. Blood Venous blood specimen / Unknown 07/01/2022 9:17 AM EDT 07/01/2022 9:18 AM EDT Narrative [facility] - 07/03/2022 2:25 PM EDT FASTING:YES FASTING: YES Kimberlyn Acevedo DO LAB BLOOD ORDERABLES Final R esult [facility] [address] [place] [address], [place] [phone] [facility] [address] [place] [phone] * THINPREP PAP (01/26/2021 12:00 AM EDT) Clinical Information: None given [facility] COMMENT SEE COMMENT [facility] Comment: EXPLANATORY NOTE: The Pap is a screening test for cervical cancer. It is not a diagnostic test and is subject to false negative and false positive results. It is most reliable when a satisfactory sample, regularly obtained, is submitted with relevant clinical findings and history, and when the Pap result is evaluated along with historic and current clinical information. Manager Universal : SEE COMMENT [facility] Comment: LORENZO SULLIVAN(ASCP) CT screening location: [address] [address] Interpretation/R esult: Negative for intraepithelial lesion or malignancy. [facility] LMP: NONE [facility]IV[facility] Prev. BX: NONE [facility]IV[facility] Prev. PAP: NONE [facility]IV[facility] SOURCE: None given [facility] Statement Of Adequacy: SEE COMMENT [facility] Comment: Satisfactory for evaluation. Endocervical/transformation zone component absent. Age and/or menstrual status not provided 01/26/2021 Marzena Main MD LAB PATHOLOGY ORDERAB LES Final Result [facility] [address] from Last 3 Months or Most Recently Relevant to Health Maintenance [facility] [facility] Care Teams Wood Patternmaker Apprentice Relationship Specialty Start Date End Date Marzena Strong MD [address] [place] [phone] PCP - General Family Medicine 04/01/19 Heather Betancourt Drainlayer 11/01/24
== END 2025-03-29 10:12 | disposition home or self-care (01) ==
LOC: HO.HSM 09:44
PROVIDERS: PCP Internal Medicine; Visit Provider Psychiatry & Neurology Neurology
DX: R41.3 Other amnesia (principal); E51.2 Wernicke's encephalopathy
CPT/HCPCS: 99205

== ENCOUNTER → 2025-03-29 09:43 | Outpatient (BNVA) | payer MEDICAID, SELFPAY | PROVIDERS: PCP Internal Medicine; Visit Provider Psychiatry & Neurology Neurology | DX: E51.2 Wernicke's encephalopathy (principal); R41.3 Other amnesia | CPT/HCPCS: 99202 ==

== ENCOUNTER 2025-03-31 08:53 | Outpatient (REF) | payer MEDICAID, SELFPAY ==
--- OUTSIDE RECORDS SUMMARY | 2025-03-28 10:15 | XMS_ITS | Encounter Summary ---
Author Organization [employer] [facility] [facility] [employer] Address [address] [facility] 7 [place] [address] Care Team Providers Care Youth Program Director Name Role Phone Marzena Strong MD Primary Care Provide r Encounter Details Date Type Department Care Team (Latest Contact Info) Description 03/28/2025 10:15 AM EST Procedure Visit [facility] [address] [place], [place] [phone] Marzena Strong MD [address] [place], [place] [phone] Primary hypertension (Primary Dx); Gastroesophageal reflux disease, [...] (BMI) of 45.0 to 49.9 in adult ([facility]) Seropositive rheumatoid arthritis ([facility]) ([facility]) Gastritis Fibromyalgia Heartburn Myofascial pain Polyarthropathy Polymyalgia ([facility]) Rheumatoid factor positive Rheumatoid arthritis of elbow ([facility]) ([facility]) Scleral icterus Missed period Irregular periods Insomnia [...] Moderate episode of recurrent major depressive disorder ([facility]) ([facility]) Hypokalemia Chronic pain of right knee Esophagitis [...] HTN (hypertension) - Primary Seropositive rheumatoid arthritis ([facility]/HCC) ([facility]) Documentation for platter will be fill out [...] appointment scheduled for March 29, 2025 at [facility]. Ordered blood tests to monitor vitamin levels and potassium. Advised to complete labs as soon as possible. Pseudotumor cerebri: - Pseudotumor cerebri present. - Neurology referral placed; neurology appointment scheduled for March 29, 2025 at [facility]. Will monitor and follow up with neurology. [...] Active Problem List Diagnosis Seropositive rheumatoid arthritis ([facility]/HCC) ([facility]) Gastritis Fibromyalgia Heartburn Myofascial pain Polyarthropathy Polymyalgia (CMS/HCC) Rheumatoid factor positive Rheumatoid arthritis of elbow (CMS/HCC) ([facility]) Scleral icterus Missed period Irregular periods Insomnia [...] episode of recurrent major depressive disorder (CMS/HCC) ([facility]) Hypokalemia Chronic pain of right knee Esophagitis [...] Description 04/29/2025 2:45 PM EST Office Visit [facility] [address] [place] [phone] Marzena Strong MD [address] [place], [place] [phone] documented as of this encounter Visit Diagnoses [...] documented as of this encounter Care Teams Youth Program Director Relationship Specialty Start Date End Date Marzena Strong MD [address] [place] [phone] PCP - General Family Medicine 04/01/19 Heather Betancourt Buildings And Grounds Coordinator 11/01/24 documented as of this encounter
--- OUTSIDE RECORDS SUMMARY | 2025-03-31 09:37 | XMS_ITS | Clinical Summary ---
Author Organization [employer] Address [address] [facility] 7 [place] [address] Care Team Providers Care Computer Education Teacher Name Role Phone Marzena Strong MD Primary [...] within 12 hours or as directed by . 30 patch 1 Active pyridoxine (Vitamin B-6) 50 MG tabletIndications :Wernicke's encephalopathy TAKE 1 TABLET BY MOUTH EVERY DAY 30 tablet 1 Active pantoprazole (Protonix) 20 MG EC tabletIndications :Gastroesophageal reflux disease, unspecified whether esophagitis present Take 1 tablet (20 mg) by mouth before breakfast. Do not crush, chew, or split. 30 tablet 3 5 9:05 AM EST 025 2025 Active folic acid (Folvite) 1 MG tabletIndications :Wernicke's encephalopathy Take 1 tablet (1 mg) by mouth Once per day. 30 tablet 11 5 9:05 AM EST 025 2025 Active cyanocobalamin (Vitamin B-12) 100 MCG tabletIndications :Wernicke's encephalopathy Take 1 tablet (100 mcg) by mouth Once per day. 30 tablet 11 5 9:05 AM EST 025 2025 Active cholecalciferol (Vitamin D-3) 25 MCG (1000 UT) tabletIndications :Wernicke's encephalopathy Take 1 tablet (25 mcg) by mouth Once per day. 60 tablet 1 5 9:05 AM EST Active pantoprazole (Protonix) 40 MG EC tabletIndications [...] and confusion. Additionally, her mother relocated to [place] just one week ago.. Due to the [...] External OP therapy referral and completion of [facility] Intake for OP Therapy Patient Self Plan Patient to utilize skills provided in intervention , Patient [facility] needed, Patient to engage in OP therapy , and Patient to reach out to HC as needed Moderate episode of recurren t [...] (11/19/2022 12:18 PM EDT): Maintain hydration Patient executive assistant to general counsel about heathy diet and exercise It was [...] AM EDT): She was recently seen at [facility] we are waiting for urine culture Rheumatoid factor positive 09/04/2022 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 pylori infection 09/04/2022 Foot pain 09/04/2022 Heartburn 07/16/2022 Myofascial pain 07/16/2022 Polyarthropathy 07/16/2022 Polymyalgia 07/16/2022 Seropositive rheumatoid arthritis (CMS/HCC) 06/12 Assessment & Plan (03/28/2025 1:19 PM EST): Documentation for platter will be fill out Assessment & Plan [...] per pt -advised to continue care w cloth shrinking tester as soon as possible and w PCP [...] Description 03/28/2025 10:15 AM EST Procedure Visit [facility] [address] [place] [phone] Marzena Strong MD Primary hypertension (Primary Dx); Gastroesophageal reflux disease, unspecified whether esophagitis present; Seropositive rheumatoid arthritis (CMS/HCC) (HCC); Wernicke's encephalopathy; Pseudotumor cerebri 03/28/2025 Results Follow-Up [facility] [address] [place] [phone] Marzena Strong MD CBC auto differential, Comprehensive Metabolic Panel, Hemoglobin A1c, Additional followed-up results: 4 03/28/2025 Travel 03/25/2025 Telephone [facility] [address] [place] [phone] Marzena Strong MD Chart Prep 03/18/2025 Patient Outreach [facility] [address] [place] [address] Marzena Strong MD 03/08/2025 Patient Outreach [facility] [address] [place] [address] Marzena Strong MD Care Coordination (CP Care Coordination Chart Review) 03/02/2025 Patient Outreach [facility] [address] [place] [address] Marzena Strong MD Care Coordination ([facility] ED Follow up) 03/02/2025 Patient Outreach [address] [address] Marzena Strong MD 01/25/2025 9:30 AM EDT Telemedicine [address] [address] Marzena Strong MD Moderate episode of recurrent [...] Description 04/29/2025 2:45 PM EST Office Visit [facility] [address] [place], [place] [phone] Marzena Strong MD [address] [place], [place] [phone] Health Maintenance Due Date Last Done Comments [...] Screening 03/28/2026 03/28/2025 Lipid Panel 03/28/2030 03/28/2025, 07/1 04/2022, 07/01/2022, Additional history exists Zoster Vaccines (1 [...] Procedure Name Priority Date/Time Associated Diagnosis Comments RPR (MONITOR) W/REFL TITER Routine 03/28/2025 11:03 AM EST Wernicke's encephalopathy VITAMIN B12/FOLATE, SERUM PANEL Routine 03/28/2025 11:03 [...] Vitamin D 25-OH Total 19.6(L) >30 ng/mL [facility] Comment: Health Based Reference Values*< 20 ng/mL Zpdyngciz42-37 ng/mL Insufficient> 30 ng/mL Sufficient*Greta MORGAN. N [...] BLOOD ORDERABLES Final Result Performing Organization Address [facility]/ZIP Co de Phone Number [facility] [address] [place] [phone] * (ABNORMAL) Vitamin B12/Folate, Serum Panel (03/28/2025 11:03 AM EST) Vitamin B12 321 200 - 900 pg/mL [facility] Comment:NORMAL 200-900 PG/ML INDETERMINATE 160-199 PG/ML DEFICIENT < 160 PG/ML Folate 3.1(L) > or = 4.0 ng/mL [facility] Comment:Reference Values:> o r = [...] BLOOD ORDERABLES Final Result Performing Organization Address [facility] Co de Phone Number [facility] [address] [place] [phone] * TSH with Reflex to Free T4 (03/28/2025 11:03 AM EST) TSH reflex Free T4 0.71 0.32 - 4.0 uIU/mL [facility] Blood Venous blood specimen / Unknown 03/28/2025 11:03 AM EST 03/28/2025 1:40 PM EST us Marzena Main MD LAB BLOOD ORDERABLES Final Result Performing Organization Address [facility] Co de Phone Number [facility] [address] [place] [phone] * CBC auto differential (03/28/2025 11:03 AM EST) White Blood Count 5.0 4.8 - 10.8 X10*3/uL [facility] Red Blood Count 4.39 4.20 - 5.50 X10*6/uL [facility] Hemoglobin 13.2 12.0 - 16.0 g/dl [facility] Hematocrit 40.1 37.0 - 47.0 % [facility] Mean Corpuscular Volume 91.3 80.0 - 98.0 fL [facility] Mean Corpuscular Hemoglobin 30.1 27.0 - 33.0 pg [facility] Mean Corpuscular HGB Conc 32.9 31.0 - 35.0 g/dl [facility] Red Cell Distribution Width 12.2 11.0 - 16.0 % [facility] Platelet Count 213 160 - 400 X10*3/uL [facility] Mean Platelet Volume 10.9 9.4 - 12.3 fL [facility] Neutrophils Percent Auto 58.2 45 - 73 % [facility] Imm Gran Pct Auto 0.2 0.0 - 0.4 % [facility] Lymphocytes Percent Auto 32.0 20 - 40 % [facility] Monocytes Percent Auto 7.4 2 - 11 % [facility] Eosinophils Percent Auto 1.4 0 - 4 % [facility] Basophils Percent Auto 0.8 0 - 2 % [facility] NRBC Pct Auto 0.0 0.0 - 0.2 /100WBC [facility] Neutrophils Absolute Auto 2.9 2.0 - 8.3 x10*3/uL [facility] Imm Gran Abs Auto 0.01 0.00 - 0.03 X10*3/uL [facility] Lymphocytes Absolute Auto 1.6 1.2 - 4.9 X10*3/uL [facility] Monocytes Absolute Auto 0.4 0.1 - 1.2 X10*3/uL [facility] Eosinophils Absolute Auto 0.1 0.0 - 0.4 X10*3/uL [facility] Basophils Absolute Auto 0.0 0.0 - 0.2 X10*3/uL [facility] NRBC Abs Auto 0.000 0.0 - 0.012 X10*3/uL [facility] Blood Venous blood specimen / Unknown 03/28/2025 11:03 AM EST 03/28/2025 1:40 PM EST Marzena Main MD LAB BLOOD ORDERABLES Final Result Performing Organization Address [facility] Co de Phone Number [facility] [address] [place] [phone] * RPR (Monitor) with Reflex to??Titer (03/28/2025 11:03 AM EST) RPR (Monitor) w/Refl Titer NON-REACTI VE NON-REACT SHAINA [facility] Comment:THIS TEST WAS PERFOR MED AT:[email or web address] [place] [id number] JONES MD Rapid Plasma Reagin Ab Titer TNP [facility] Blood Venous blood specimen / Unknown 03/28/2025 11:03 AM EST 03/28/2025 1:40 PM EST us Marzena Main MD LAB BLOOD ORDERABLES Final Result Performing Organization Address [facility] de Phone Number [facility] [address] [place] [phone] * Hemoglobin A1c (03/28/2025 11:03 AM EST) Hemoglobin A1c 4.9 <6.0 % [facility] Comment:Hemoglobin A1C Refer ence Range Adults: 4.8 - 6.0 % Non diabetic: < 6.0 % Goal: < 7.0 %Additional Action Suggested: > 8.0 %Note: Hemoglobin A1c results are invalid for patients with abnormal amounts of HbF. Blood transfusions may impact the HbA1c concentration in the patient sample. Estimated Average Glucose 94 mg/dL [facility] Comment:eAG = Estimated ave rage glucose which is %A1C expressed asaverage glucose, using the formula of the J1E-TboqruqEyxzjlw Glucose study (ADAG), Diabetes Care, Vol.31,#8,Nov. 2007 Blood Venous blood specimen / Unknown 03/28/2025 11:03 AM EST 03/28/2025 1:40 PM EST us Marzena Main MD LAB BLOOD ORDERABLES Final Result Performing Organization Address [facility] Co de Phone Number [facility] [address] [place] [phone] * Lipid Panel, Standard (03/28/2025 11:03 AM EST) Triglycerides 112 <150 mg/dL [facility] Comment:Desirable Triglyceri de: less than 150 mg/dLBorderline High Triglyceride 150-199 mg/dLHigh Triglyceride: 200-499 mg/dLVery High Triglyceride: greater than or equal to 5OO mg/dL Cholesterol 165 <200 mg/dL [facility] Comment:Desirable Cholestero l: less than 200 mg/dLBorderline High Cholesterol: 200-239 mg/dLHigh Cholesterol: greater than 239 mg/dL LDL Cholesterol Calculated 91 <100 mg/dL [facility] Comment:Desirable LDL: less than 100 mg/dLNear Optimal/Above Optimal LDL: 110- 129 mg/dLBorderline High LDL: 130-159 mg/dLHigh LDL: 160-189 mg/dLVery High LDL: greater than or equal to 190 mg/dL HDL Cholesterol 52 >40 mg/dL [facility] Comment:Desirable HDL: great er than 40 mg/dL Note: This HDL assay may give artificially low results in patients with liver disease. Blood Venous blood specimen / Unknown 03/28/2025 11:03 AM EST 03/28/2025 1:40 PM EST us Marzena Main MD LAB BLOOD ORDERABLES Final Result Performing Organization Address [facility] Co de Phone Number [facility] [address] [place] [phone] * (ABNORMAL) Comprehensive Metabolic Panel (03/28/2025 11:03 AM EST) Pathologist [facility] Sodium 140 135 - 145 mmol/L [facility] Potassium 3.7 3.3 - 5.1 mmol/L [facility] Chloride 109(H) 96 - 108 mmol/L [facility] Carbon Dioxide 26 22 - 29 mmol/L [facility] Anion Gap 9(L) 12 - 20 [facility] Urea Nitrogen (BUN) 9 9 - 16 mg/dL [facility] Creatinine, Serum 0.71 0.5 - 1.4 mg/dL [facility] Estimated Glomerular Filt Rate >60 [facility] Comment:Chronic Kidney Disea se: Estimated GFR < 60 mL/min/1.47b0Dinooq Kidney Disease: Estimated GFR < 15 mL/min/1.73m2 Glucose 76 60 - 115 mg/dL [facility] Calcium 9.1 8.4 - 10.2 mg/dL [facility] Bilirubin, Total 2.0(H) 0.0 - 1.0 mg/dL [facility] Aspartate Amino Transferase 26 5 - 31 U/L [facility] Alanine Aminotransferase 27 0 - 31 U/L [facility] Total Protein 7.0 6.5 - 8.0 g/dL [facility] Albumin Level 4.6 3.5 - 5.0 g/dL [facility] Alkaline Phosphatase 68 39 - 117 U/L [facility] Blood Venous blood specimen / Unknown 03/28/2025 11:03 AM EST 03/28/2025 1:40 PM EST us Marzena Main MD LAB BLOOD ORDERABLES Final Result [facility] [address] [place] [phone] * Hepatitis Panel, General (12/23/2022 1:58 PM EDT) Hepatitis A IgM Nonreactive Nonreactive [facility] Comment:IgM antibodies to FRANCISCO V not detected; does not exclude earlyacute or recovered HAV infection. ~Hepatitis B Surface Antibody NONREACTIVE Nonreactive [facility] Comment:Nonreactive: < 8.00 mIU/mL Hepatitis B Core Antibody Nonreactive Nonreactive [facility] Hepatitis C Antibody Nonreactive Nonreactive [facility] Comment:Antibodies to HCV no t detected; does not exclude early acuteHCV infection. Hepatitis B Surface Ag Negative Negative [facility] 12/23/2022 1:58 PM EDT 12/23/2022 1:58 PM EDT us [facility] External Provider LAB BLO OD ORDERABLES Final Result [facility] [address] [place] [phone] * HIV-1/2 Antigen and Antibodies, Fourth Generation, with Reflexes (07/01/2022 9:17 AM EDT) HIV Antigen/Antibody, 4th Generation NON-REAC TIVE NON-REAC TIVE [facility] [employer] Comment: HIV-1 antigen and HIV-1/HIV-2 antibodies were [...] purpose. For additional information please refer to http://education.[employer]/faq/ZSI875 (This link is being provided for informational/ educational purposes only.) The performance of this assay has not been clinically validated in patients less than 2 years old. Blood Venous blood specimen / Unknown 07/01/2022 9:17 AM EDT 07/01/2022 9:18 AM EDT Narrative [facility] - 07/03/2022 2:25 PM EDT FASTING:YES FASTING: YES us Kimberlyn Acevedo DO LAB BLOOD ORDERABLES Final R esult [facility]LEJANDRA [address], [place] [address] [facility] [address] [place] [phone] * THINPREP PAP (01/26/2021 12:00 AM EDT) Clinical Information: None given [facility] COMMENT SEE COMMENT [facility] [...] along with historic and current clinical information. Crew Car Driver : SEE COMMENT [facility] Comment: NATE CT(ASCP) CT screening location: [address] [address] Interpretation/R esult: Negative for intraepithelial lesion or malignancy. [facility] LMP: NONE [facility]IV[facility] Prev. BX: NONE [facility]IV[facility] Prev. PAP: NONE GIVEN [facility] SOURCE: None given [facility] Statement Of Adequacy: SEE COMMENT [email or web address] Comment: Satisfactory for evaluation. Endocervical/transformation zone component absent. Age and/or menstrual status not provided 01/26/2021 us Marzena Main MD LAB PATHOLOGY ORDERAB LES Final Result [email or web address] [address] from Last 3 Months or Most Recently Relevant to Health Maintenance Insurance [facility] C3 Care Teams Computer Education Teacher Relationship Specialty Start Date End Date Marzena Strong MD [address] [place] [phone] PCP - General Family Medicine 04/01/19 Heather Betancourt Loader Unloader 11/01/24
--- OUTSIDE RECORDS SUMMARY | 2025-03-31 09:37 | XMS_ITS | Encounter Summary ---
Author Organization [employer] Address [address] [facility] 7t [place] [address] Care Team Providers Care Receiving Team Member Name Role Phone Marzena Strong MD Primary [...] Description 04/29/2025 2:45 PM EST Office Visit [facility] [address] [place] [address] Marzena Strong MD [address] [place] [address] documented as of this encounter Visit Diagnoses Not on filedocumented in this encounter Additional Health Concerns Assessment Noted Time PHQ-9 Depression Total Score: 20 025 11:00 AM EST documented as of this encounter Care Teams Receiving Team Member Relationship Specialty Start Date End Date Marzena Strong MD [address] [place] [phone] PCP - General Family Medicine 04/01/19 Heather Betancourt Information Technology Associate 11/01/24 documented as of this encounter
--- OUTSIDE RECORDS SUMMARY | 2025-03-31 09:37 | XMS_ITS | Encounter Summary ---
Author Organization [employer] Address [address] [facility] 7 [place] [address] Care Team Providers Care Production Support Analyst Name Role Phone Marzena Strong MD Primary Care Provide r Ying Grier Unavailable Ying Grier Unavailable Reason for Visit * Reason Comments Med Refill Encounter Details Date Type Department Care Team (Late st Contact Info) Description 04/21/2024 Refill [facility] [address] [place], [place] [phone] Marzena Strong MD [address] [place], [place] [phone] Primary hypertension Social History Tobacco Use Types [...] 04/29/2025 2:45 PM EST Office Visit [facility] [address] [place] [phone] Marzena Strong MD [address] [place] [address] documented as of this encounter Visit Diagnoses Diagnosis Primary hypertension Unspecified essential hypertension documented in this encounter Additional Health Concerns Assessment Noted Time PHQ-9 Depression Total Score: 17 024 10:47 AM EST documented as of this encounter Care Teams Production Support Analyst Relationship Specialty Start Date End Date Marzena Strong MD [address] [place] [address] [phone] PCP - General Family Medicine 04/01/19 Ying Grier 11/01/24 11/02/24 Ying Grier 03/02/25 03/18/25 Ricarda Osullivan Slusher OperatorWire Rope Sales Representative 04/02/24 10/31/24 Heather Betancourt Slusher Operator 11/01/24 documented as of this encounter
--- OUTSIDE RECORDS SUMMARY | 2025-03-31 09:37 | XMS_ITS | Encounter Summary ---
Author Organization [employer] Address [address] [place] [address] [place] [address] Care Team Providers Care Load Out Worker Name Role Phone Marzena Strong MD Primary Care Provide r Ying Grier Unavailable Ying Grier Unavailable Reason for Visit * Reason Comments Med Refill Encounter Details Date Type Department Care Team (Late st Contact Info) Description 01/09/2023 Refill [facility] [address] [place], [place] [phone] [facility] [address] [place], [place] [phone] Facial rash Social History Tobacco Use Types [...] 2:45 PM EST Office Visit [facility] [address] [place] [address] Marzena Strong MD [address] [place] [address] documented as of this encounter Visit Diagnoses Diagnosis Facial rash documented in this encounter Additional Health Concerns Assessment Noted Time PHQ-9 Depression Total Score: 18 023 11:12 AM EDT documented as of this encounter Care Teams Load Out Worker Relationship Specialty Start Date End Date Marzena Strong MD [address] [place] [address] [phone] PCP - General Family Medicine 04/01/19 Ying Grier 11/01/24 11/02/24 Ying Grier 03/02/25 03/18/25 Ricarda Osullivan Sql Database ProgrammerComputer Teacher 04/02/24 10/31/24 Heather Betancourt Sql Database Programmer 11/01/24 documented as of this encounter
--- OUTSIDE RECORDS SUMMARY | 2025-03-31 09:37 | XMS_ITS | Clinical Summary ---
Author Organization [facility], Address [address] [place] [address] [place] [address] Phone Care Team Providers Care Detailer Name Role Phone Marzena Strong MD Primary Care Provide r Allergies No known active allergies Medications cetirizine (ZyrTEC) 10 MG tablet Take 10 mg by mouth in the morning. 10/01/2022 Active ergocalciferol 1.25 MG (01243 UT) capsule Take 50,000 Units by mouth 1 (one) time per week Active Active Problems Problem Noted Date Diagnosed Date Other iron deficiency anemia 08/18/2024 Hypokalemia 03/08/2024 Hypertensive disorder 10/01/2022 Immunizations Immunization Administration Dates Next Due Hepatitis B 12/30/2022 Influenza, Quadrivalent, Preservative Free 12/30,02/15/2021 Influenza, Unspecified 12/30/2022,02/15/2021 Social History Tobacco Use Types Packs/Day Years Used Date Smoking Tobacco: Never Assessed Comments Unknown Sex and Gender Information Value Date Recorded Sex Assigned at Not on file Legal Sex Female 4:02 PM EST Gender Identity Not on file Sexual Orientation Not on file Plan of Treatment Health Maintenance Due Date Last Done Comments Hepatitis B Vaccine (1 of 3 - 19+ 3-dose series) 2012 12/30/2022 Pneumococcal Vaccine: Peds ( 0 to 5 Years) and At-Risk Patients (6 to 49 Years) (1 of 2 - PCV) 2012 Influenza Vaccine (#1) 2024 3, 12/30/2022, 02/15/2021, Additional history exists Insurance Medicaid [place] Care Teams Detailer Relationship Specialty Start Date End Date Marzena Strong MD [address] [place] [phone] PCP - General Internal Medicine 04/08/24
--- OUTSIDE RECORDS SUMMARY | 2025-03-31 09:37 | XMS_ITS | Encounter Summary ---
Author Organization [employer] Address [address] [facility] 7 [place] [address] Care Team Providers Care Telephone Quotation Clerk Name Role Phone Marzena Strong MD Primary Care Provide r Ying Grier Unavailable Ying Grier Unavailable Reason for Visit * Reason Onset Date Comments Medication Question 02/02/2024 Encounter Details Date Type Department Care Team ([facility] st Contact Info) Description 02/02/2024 Telephone [facility] [address] [place], [place] [phone] Marzena Strong MD [address] [place], [place] [phone] Medication Question Social History Tobacco Use Types [...] any questions you can contact Gema at [phone]. documented in this encounter Plan of Treatment Upcoming Encounters Date Type Department Care Team (Late st Contact Info) Description 04/29/2025 2:45 PM EST Office Visit [facility] [address] [place] [address] Marzena Strong MD [address] [place], [place] [phone] documented as of this encounter Visit Diagnoses Not on filedocumented in this encounter Additional Health Concerns Assessment Noted Time PHQ-9 Depression Total Score: 0 01/29/20 9:42 AM EDT documented as of this encounter Care Teams Telephone Quotation Clerk Relationship Specialty Start Date End Date Marzena Strong MD [address] [place] [phone] PCP - General Family Medicine 04/01/19 Ying Grier 11/01/24 11/02/24 Ying Grier 03/02/25 03/18/25 Ricarda Osullivan Digital AssociateSolid Waste Manager 04/02/24 10/31/24 Heather Betancourt Digital Associate 11/01/24 documented as of this encounter
--- OUTSIDE RECORDS SUMMARY | 2025-03-31 09:37 | XMS_ITS | Encounter Summary ---
Author Organization [employer] Address [address] [place] [address] 7 [place] [address] Care Team Providers Care Brickmason Supervisor Name Role Phone Marzena Strong MD Primary Care Provide r Ying Grier Unavailable Ying Grier Unavailable Reason for Visit * Reason Comments Med Change Request Encounter Details Date Type Department Care Team (Late st Contact Info) Description 11/19/2022 Refill [facility] [address] [place], [place] [phone] [facility] [address] [place], [place] [phone] Facial rash Social History Tobacco Use Types [...] find out if patient has seen a engine lathe operator. Patient states she has never seen one but she does have an appointment coming up in the next couple of weeks, with GI documented in this encounter Plan of Treatment Upcoming Encounters Date Type Department Care Team (Late st Contact Info) Description 04/29/2025 2:45 PM EST Office Visit [facility] [address] [place] [address] Marzena Strong MD 230 [place], [place] [phone] documented as of this encounter Visit Diagnoses Diagnosis Facial rash documented in this encounter Additional Health Concerns Assessment Noted Time PHQ-9 Depression Total Score: 18 023 11:12 AM EDT documented as of this encounter Care Teams Brickmason Supervisor Relationship Specialty Start Date End Date Marzena Strong MD [address] [place] [address] [phone] PCP - General Family Medicine 04/01/19 Ying Grier 11/01/24 11/02/24 Ying Grier 03/02/25 03/18/25 Ricadra Osullvian Telecom CoordinatorPipe Recovery Specialist 04/02/24 10/31/24 Heather Betancourt Telecom Coordinator 11/01/24 documented as of this encounter
--- OUTSIDE RECORDS SUMMARY | 2025-03-31 09:37 | XMS_ITS | Encounter Summary ---
Author Organization [employer] Address [address] [facility] 7 [place] [address] Care Team Providers Care Chief Vendor Quality Name Role Phone Marzena Strong MD Primary Care Provide r Ying Grier Unavailable Ying Grier Unavailable Reason for Referral * Imaging (Routine) - Closed Specialty Diagnoses / Procedures Referred By Patrice zheng Referred To Contact Radiology Diagnoses Breast pain, left Procedures BI US Breast Complete Left Barbie Walker MD 230 [place] [address] Phone: tel: fax: [address] [phone] Phone: tel: fax: Referral ID Status Reason Start Date Expiration Date Visits Re quested Visits Authorized [id number] Closed 11/25/2022 11/25/2023 1 1 * Imaging (Routine) - Closed Specialty Diagnoses / Procedures Referred By Patrice zheng Referred To Contact Radiology Diagnoses Breast pain, left Procedures BI Mammogram Diagnostic Bilateral Barbie Walker MD [address] [place] [address] Phone: tel: fax: [address] [phone] Phone: tel: fax: Referral ID Status Reason Start Date Expiration Date Visits Re quested Visits Authorized [id number] Closed 11/25/2022 11/25/2023 1 1 Encounter Details Date Type Department Care Team ([facility] Contact Info) Description 11/25/2022 Orders Only [facility] [address] [place] [address] Barbie Walker MD [address] [place] [address] [phone] Breast pain, left (Primary Dx) Social History [...] Description 04/29/2025 2:45 PM EST Office Visit [facility] [address] [place] [address] Marzena Strong MD [address] [place] [address] [phone] Scheduled Orders Name Type Priority Associated Diagnoses [...] documented as of this encounter Care Teams Chief Vendor Quality Relationship Specialty Start Date End Date Marzena Strong MD [address] [place] [address] PCP - General Family Medicine 04/01/19 Ying Grier 11/01/24 11/02/24 Ying Grier 03/02/25 03/18/25 Ricarda Osullivan Business Enterprise OfficerTank Refinisher 04/02/24 10/31/24 Heather Betancourt Business Enterprise Officer 11/01/24 documented as of this encounter
--- OUTSIDE RECORDS SUMMARY | 2025-03-31 09:37 | XMS_ITS | Encounter Summary ---
Author Organization [employer] Address [address] [place] [address] Care Team Providers Care Manager Dish Name Role Phone Marzena Strong MD Primary Care Provide r Ying Grier Unavailable Ying Grier Unavailable Reason for Visit * Reason Onset Date Comments Results 07/24/2022 Encounter Details Date Type Department Care Team (Late st Contact Info) Description 07/24/2022 Telephone [facility] 230 [place], [place] [phone] Marzena Strong MD 230 [place], [place] [phone] Results Social History Tobacco Use Types Packs/Day [...] with lab results. Please contact pt at [phone] * Telephone Encounter - GAEL Basilio - [...] on lab results. Please contact pt at [phone] * Telephone Encounter - Mohit Sousa - 07/25/2022 9:06 AM EDT Tc from pt requesting status on lab results. Please contact pt at [phone] * Telephone Encounter - Mohit Sousa - 07/24/2022 3:29 PM EDT Tc from pt requesting lab work results Please contact pt at [phone] documented in this encounter Plan of Treatment Upcoming Encounters Date Type Department Care Team (Late st Contact Info) Description 04/29/2025 2:45 PM EST Office Visit [facility] 230 [place], [place] [phone] Marzena Strong MD 230 [place], [place] [phone] documented as of this encounter Visit Diagnoses Not on filedocumented in this encounter Care Teams Manager Dish Relationship Specialty Start Date End Date Marzena Strong MD [address] [place] [address] [phone] PCP - General Family Medicine 04/01/19 Ying Grier 11/01/24 11/02/24 Ying Grier 03/02/25 03/18/25 Ricarda Osullivan Turbine SubassemblerDonor Processor 04/02/24 10/31/24 Heather Betancourt Turbine Subassembler 11/01/24 documented as of this encounter
--- OUTSIDE RECORDS SUMMARY | 2025-03-31 09:37 | XMS_ITS | Encounter Summary ---
Author Organization [employer] Address 75 [facility] 7 [place] [address] Care Team Providers Care Manager Validation Name Role Phone Marzena Strong MD Primary Care Provide r Reason for Visit * Reason Onset Date Comments Results 03/28/2025 Encounter Details Date Type Department Care Team (Latest Contact Info) Description 03/28/2025 Results Follow-Up [facility] 230 [place] [address] Marzena Strong MD 230 [place] [address] CBC auto differential, Comprehensive Metabolic Panel, Hemoglobin [...] Encounter - Paola Milligan RN - 03/29/2025 4:00 PM EST TC placed to patient [phone] in regards to below message. Patient verbalized understanding anddid not have any further questions/concerns. Patient to f/u PRN. ----- Message from Marzena Main MD sent at 03/28/2025 4:06 PM EST ----- Please let patient know I reviewed her labs her folic acid and vitamin D is low I will send supplements to the pharmacy ----- Message ----- From: Interface, Lab Results In Sent: 03/28/2025 1:58 PM EST To: Marzena Main MD * Telephone Encounter - Paola Milligan RN - 03/29/2025 9:01 AM EST TC placed to patient [phone] in regards to below message however no [...] Description 04/29/2025 2:45 PM EST Office Visit [facility] [address] [place] [address] Marzena Strong MD [address] [place] [address] documented as of this encounter Visit Diagnoses Diagnosis Wernicke's encephalopathy- Primary Other and unspecified manifestations of thiamine deficiency documented in this encounter Additional Health Concerns Assessment Noted Time PHQ-9 Depression Total Score: 20 025 11:00 AM EST documented as of this encounter Care Teams Manager Validation Relationship Specialty Start Date End Date Marzena Strong MD [address] [place] [address] PCP - General Family Medicine 04/01/19 Heather Betancourt Try On Baster 11/01/24 documented as of this encounter
--- OUTSIDE RECORDS SUMMARY | 2025-03-31 09:37 | XMS_ITS | Encounter Summary ---
Author Organization [employer] Address 75 [facility] 7 [place] [address] Care Team Providers Care Air Analyst Name Role Phone Marzena Strong MD Primary Care Provide r Ying Grier Unavailable Ying Grier Unavailable Reason for Visit * Reason Onset Date Comments Nurse Triage 06/23/2023 Encounter Details Date Type Department Care Team (Late st Contact Info) Description 06/23/2023 Telephone [facility] 230 [place], [place] [phone] Marzena Strong MD 230 [place], [place] [phone] Nurse Triage Social History Tobacco Use Types [...] 06/23/2023 3:41 PM EDT Triage call with Wendell Senior Applications Engineer ID [id number] Pt reports last night around 9pm Pt [...] to fall. The caller accepted this outcome Croatian speaker documented in this encounter Plan of Treatment Upcoming Encounters Date Type Department Care Team (Late st Contact Info) Description 04/29/2025 2:45 PM EST Office Visit [facility] [address] [place] [address] Marzena Strong MD 230 [place] [address] documented as of this encounter Visit Diagnoses Not on filedocumented in this encounter Additional Health Concerns Assessment Noted Time PHQ-9 Depression Total Score: 18 023 11:12 AM EDT documented as of this encounter Care Teams Air Analyst Relationship Specialty Start Date End Date Marzena Strong MD 230 [place] [address] PCP - General Family Medicine 04/01/19 Ying Grier 11/01/24 11/02/24 Ying Grier 03/02/25 03/18/25 Ricarda Osullivan Relays DraftspersonAnimal Trainer 04/02/24 10/31/24 Heather Betancourt Relays Draftsperson 11/01/24 documented as of this encounter
--- OUTSIDE RECORDS SUMMARY | 2025-03-31 09:37 | XMS_ITS | Encounter Summary ---
Author Organization [employer] Address [address] [place] [address] Care Team Providers Care Chief Meteorologist Name Role Phone Marzena Strong MD Primary Care Provide r Ying Grier Unavailable Ying Grier Unavailable Reason for Visit * Reason Onset Date Comments triage 08/26/2022 Encounter Details Date Type Department Care Team (Late st Contact Info) Description 08/26/2022 Telephone [facility] 230 [place], [place] [phone] Marzena Strong MD 230 [place], [place] [phone] triage Social History Tobacco Use Types Packs/Day [...] 08/26/2022 10:49 AM EDT Triage call with [employer] Market Sales Manager ID [id number] Attempted to contact x2, no answer, unable [...] Description 04/29/2025 2:45 PM EST Office Visit [facility] 230 [place], [place] [phone] Marzena Strong MD [address] [place], [place] [phone] documented as of this encounter Visit Diagnoses Not on filedocumented in this encounter Care Teams Chief Meteorologist Relationship Specialty Start Date End Date Marzena Strong MD [address] [place], [place] [phone] PCP - General Family Medicine 04/01/19 Ying Grier 11/01/24 11/02/24 Ying Grier 03/02/25 03/18/25 Ricarda Osullivan Cloth ReelerPot Sander 04/02/24 10/31/24 Heather Betancourt Cloth Reeler 11/01/24 documented as of this encounter
--- OUTSIDE RECORDS SUMMARY | 2025-03-31 09:37 | XMS_ITS | Encounter Summary ---
Author Organization [facility], Address [address] [place] [address] Phone Care Team Providers Care Photographic Platemaker Name Role Phone Marzena Strong MD Primary Care Provide r Encounter Details Date Type Department Care Team (Late st Contact Info) Description 02/19/2024 Documentation Only [facility], [address] [place] [phone] Emily Jaime Social History Tobacco Use Types Packs/Day Years Used Date Smoking Tobacco: Never Assessed Comments Unknown Sex and Gender Information Value Date Recorded Sex Assigned at Not on file Legal Sex Female 4:02 PM EST Gender Identity Not on file Sexual Orientation Not on file documented as of this encounter Plan of Treatment Not on file documented as of this encounter Visit Diagnoses Not on filedocumented in this encounter Care Teams Photographic Platemaker Relationship Specialty Start Date End Date Marzena Strong MD [address] [place] [phone] PCP - General Internal Medicine 04/08/24 documented as of this encounter
--- OUTSIDE RECORDS SUMMARY | 2025-03-31 09:37 | XMS_ITS ---
Author Organization [facility] an d Nursing Care Team Providers Care Organic Chemist Name Role Phone John Lua Unavailable Unavailable Nithya Forde Unavailable Allergies and adverse reactions No Known Allergies Care Team Name Role Address Phone Organization Dates Nithya Forde PCP [address], [address], [facility] ([facility]/14/2023 - 01/15/2024 John Lua [address] [facility] [address], [place], [address], [facility] (Office[facility] : : [facility] 12/14/2023 - 01/15/2024 Immunizations Immunization Status Vaccine Details Vaccine Code CodeSystem Date Notes Influenza (standard dose syringe) completed Influenza, Madin [place] Canine Kidney, subunit, quadrivalent, injectable, preservative free lotNumber: [id number] expiry: 10/11/2024 Mfg: [id number] [id number] Given 0.5 ml Left Deltoid intramuscularly 171 CVX created date: 01/14/2024 administer ed date: 01/13/2024 Educated by nurse on 01/13/2024 PCV20 cancelled Pneumococcal conjugate vaccine 20-valent (PCV20), polysaccharide [id number] conjugate, adjuvant, preservative free 216 CVX created date: 01/07/2024 consent date: 01/07/2024 PCV15 cancelled Pneumococcal conjugate vaccine 15-valent (PCV15), polysaccharide [id number] conjugate, adjuvant, preservative free 215 CVX created [...] Other information Code: 2 Code System OID:2.16.840 .1.103592.3. 221.5 Code System Name: Source of Payment Typology (PHDSC) Display: Medicaid Translation: Code: 48 Code System: OID:2.16.840 .1.625927.6. 255.1336 Code System Name: Insurance Type Code ([id number]) Display Name: Medicaid Code: 81 Code System OID:2.16.840 .1.802994.3. 221.5 Code System Name: Source of Payment Typology (PHDSC) Display: Self Pay Translation: Code: 09 Code System: OID:2.16.840 .1.581171.6. 255.1336 Code System Name: Insurance Type Code ([id number]) Display Name: Self-pay Code: 349 Code System OID:2.16.840 .1.254621.3. 221.5 Code System Name: Source of Payment Typology (PHDSC) Display: Other Translation: Code: C1 Code System: OID:2.16.840 .1.214529.6. 255.1336 Code System Name: Insurance Type Code ([id number]) Display Name: Commercial Insurance Problems Problem # Description Date of onset Resolved Date Code CodeSystem Concern Status 1 ACIDOSIS, UNSPECIFIED 12/14/[address] active 2 ACQUIRED ABSENCE OF STOMACH [PART OF] 12/14/[address] active 3 ACUTE KIDNEY FAILURE, UNSPECIFIED 12/14/[address] active 4 ALTERED MENTAL STATUS, UNSPECIFIED 12/14/[address] active 5 BARIATRIC SURGERY STATUS 12/14/[address] active 6 BENIGN INTRACRANIAL HYPERTENSION 12/14/[address] active 7 DELIRIUM DUE TO KNOWN PHYSIOLOGICAL CONDITION 12/14/[address] active 8 DIAPHRAGMATIC HERNIA WITHOUT OBSTRUCTION OR GANGRENE 12/14/[address] active 9 ENCEPHALOPATHY, UNSPECIFIED 12/14/[address] active 10 ESSENTIAL (PRIMARY) HYPERTENSION 12/14/[address] active 11 FATTY (CHANGE OF) LIVER, NOT ELSEWHERE CLASSIFIED 12/14/[address] active 12 FIBROMYALGIA 12/14/20232029799364706 SNOMED CT acti ve 13 GASTRO-ESOPHAGEAL REFLUX DISEASE WITH ESOPHAGITIS, WITHOUT BLEEDING 12/14/[address] active 14 HOURGLASS STRICTURE AND STENOSIS OF STOMACH 12/14/[address] active 15 OBSTRUCTIVE AND REFLUX UROPATHY, UNSPECIFIED 12/14/[address] active 16 PREDIABETES 12/14/[address] activ e 17 RHEUMATOID ARTHRITIS, UNSPECIFIED 12/14/[address] active 18 SYSTEMIC INVOLVEMENT OF CONNECTIVE TISSUE, UNSPECIFIED 12/14/[address] active 19 ULCER OF ESOPHAGUS WITHOUT BLEEDING 12/14/[address] active 20 UNSPECIFIED ABDOMINAL PAIN 12/14/[address] active 21 UNSPECIFIED HYDRONEPHROSIS 12/14/[address] active 22 UNSPECIFIED PARALYTIC STRABISMUS 12/14/[address] active 23 UNSPECIFIED PROTEIN-CALORIE MALNUTRITION 12/14/[address] active 24 UNSPECIFIED VISUAL DISTURBANCE 12/14/[address] active 25 VITAMIN D DEFICIENCY, UNSPECIFIED 12/14/[address] active 26 WERNICKE'S ENCEPHALOPATHY 12/14/[address] active Reason for Referral No Reasons for Referral Entered Social History Social History Observation Description Start Date End Date Code Code System Current Smoking Status Tobacco smoking consumption unknown [id number] SNOMED CT Sex Assigned At Female 1995 95083-3 [facility] Gender Identity Sexual Orientation Vital Signs Code Code System Vitals Name Values and Units Timing Information 8310-5 [facility] Body Temperature Value=97.6 Units= F 01/15/2024 18827-9 [facility] Pain Level Value=0.0 01/14/2024 2339-0 [facility] Blood Sugar Value=95.0 Units=mg/dL 01/08/2024 69821-2 [facility] Weight Jpgbr=869.9 Units=Lbs 12/2023 8462-4 [facility] Blood Pressure-Diastolic Value=81 Un its=mmHg 12/19/2023 8480-6 [facility] Blood Pressure-Systolic Value=98 Uni ts=mmHg 12/19/2023 9279-1 [facility] Respiratory Rate Value=18.0 Units=/m in 12/18/2023 8867-4 [facility] Heart rate Value=96.0 Units=/min 08/2023 8302-2 [facility] Height Value=65.0 Units=Inches 12/15/2023 89130-9 [facility] O2 % dC Oximetry Value=96.0 Units= % 12/14/2023
[2025-03-31 12:35] LABS: Folate 4.4 ng/mL (> or = 4.0); Vitamin B12 308 pg/mL (200-900)
[2025-04-04 13:14] LABS: Vitamin D 25-OH, D2 6 ng/mL; Vitamin D 25-OH, D3 11 ng/mL; Vitamin D 25-OH, Total 17 ng/mL (30-100)
== END 2025-03-31 08:54 | disposition home or self-care (01) ==
LOC: HO.HHCL 08:53
PROVIDERS: PCP Internal Medicine; Visit Provider Psychiatry & Neurology Neurology
DX: E51.2 Wernicke's encephalopathy (principal); R41.3 Other amnesia
CPT/HCPCS: 36415; 82306; 82607; 82746; 84252; 84425